=== PATIENT | female | born 1955 | race Caucasian/White ===

== ENCOUNTER 2023-05-20 18:23 | Observation (INO) | payer MEDICAID, SELFPAY ==
[2023-05-20 18:26] VITALS: BP 128/72; PULSE 62; RESP 20; TEMP 36.4; O2SAT 100; BMI 19.3
--- NOTE | 2023-05-20 18:39 | ED_ITS ---
HPI - Weakness General Chief complaint: Weakness Stated complaint: ABNORMAL LABS Time Seen by Provider: 05/20/23 18:27 Source: patient Mode of arrival: ambulance Limitations: no limitations History of Present Illness HPI Narrative: patient is a 67-year-old female who presents to the emergency department for the evaluation of low hemoglobin that was noted on outpatient labs from the [facility] where she is a resident. She states she has had ongoing issues with anemia, no one knows why. She states several months ago she had a in endoscopy and colonoscopy at [facility]. She states recently she has been receiving blood transfusions every two weeks. She was sent to this emergency department tonight because her facility is unable to set up a blood transfusion for at [place] 4[place]5 days and her hemoglobin was 6.5. Patient states she feels tired but has no other focal medical complaints, chest pain or shortness of breath. She is sitting comfortably with stable vital signs at time of evaluation. She has not noted any blood in her urine, stool. she does not take blood thinners. Related Data Home Medications Medication Instructions Recorded Confirmed acetaminophen 325 mg capsule 650 mg PO Q6H PRN fever or pain 05/20/23 05/20/23 albuterol sulfate 90 mcg/actuation 2 puff inhalation Q4H PRN 05/20/23 05/20/23 aerosol inhaler shortness of breath or wheezing cetylpyridinium chloride 1 hernan mucous membrane .Q6Hrs PRN 05/20/23 05/20/23 sore throat cholecalciferol (vitamin D3) 125 5,000 unit PO QWEEK 05/20/23 05/20/23 mcg (5,000 unit) capsule (D3-5000) docusate sodium 100 mg capsule 100 mg PO DAILY 05/20/23 05/20/23 fluticasone propionate 50 1 spray intranasal DAILY 05/20/23 05/20/23 mcg/actuation nasal spray,suspension lactulose 10 gram/15 mL oral 20 g PO BID 05/20/23 05/20/23 solution (Enulose) loratadine 10 mg chewable tablet 10 mg PO DAILY 05/20/23 05/20/23 magnesium 100 mg capsule 400 mg PO DAILY 05/20/23 05/20/23 midodrine 10 mg tablet 10 mg PO TID 05/20/23 05/20/23 omeprazole 40 mg capsule,delayed 40 mg PO DAILY 05/20/23 05/20/23 release polyethylene glycol 3350 17 17 g PO DAILY 05/20/23 05/20/23 gram/dose oral powder (ClearLax) polyvinyl alcohol 1.4 % eye drops 1 drp ophthalmic (eye) DAILY 05/20/23 05/20/23 (Artificial Tears (polyvinyl alcohol)) potassium chloride 10 mEq 20 meq PO DAILY 05/20/23 05/20/23 tablet,extended release (Klor-Con) rifaximin 550 mg tablet (Xifaxan) 550 mg PO BID 05/20/23 05/20/23 sertraline 25 mg tablet 12.5 mg PO Q24H 05/20/23 05/20/23 trazodone 150 mg tablet 50 mg PO DAILY 05/20/23 05/20/23 ursodiol 250 mg tablet 250 mg PO Q12H 05/20/23 05/20/23 Allergies Allergy/AdvReac Type Severity Reaction Status Date / Time No Known Drug Allergies Allergy Verified 05/20/23 18:30 Review of Systems ROS Constitutional Denies: fever or chills Ears, nose, mouth, and throat Denies: throat pain Cardiovascular Denies: chest pain Respiratory Denies: shortness of breath or cough Gastrointestinal Denies: abdominal pain, nausea or vomiting Integumentary/Breast Denies: rash Endocrine Denies: excessive urination PFSH PFSH Social History Smoking status: Former smoker Exam Narrative Exam Narrative: Gen.: Awake, alert, in no distress Head: Normocephalic, atraumatic ENT: Moist mucous membranes Respiratory: No respiratory distress, lungs clear bilaterally Cardio: Regular rate and rhythm Gastrointestinal: Abdomen is soft, nondistended and nontender to palpation Extremities: Moves extremities equally Psych: Normal mood and affect Neuro: No focal neuro deficit Skin: Warm, dry, intact Constitutional Vital Signs, click to edit/add: Last Vital Signs Temp 97.5 F L 05/20/23 18:26 Pulse 61 05/20/23 19:01 Resp 16 05/20/23 19:01 BP 128/72 05/20/23 18:26 Pulse Ox 99 05/20/23 19:01 O2 Del Method Room Air 05/20/23 19:02 Course Vital Signs Vital signs: Vital Signs Temperature 97.5 F L 05/20/23 18:26 Pulse Rate 62 05/20/23 18:26 Respiratory Rate 20 05/20/23 18:26 Blood Pressure 128/72 05/20/23 18:26 Pulse Oximetry 100 05/20/23 18:26 Oxygen Delivery Method Room Air 05/20/23 18:26 Temperature 97.5 F L 05/20/23 18:26 Pulse Rate 61 05/20/23 19:01 Respiratory Rate 16 05/20/23 19:01 Blood Pressure 128/72 05/20/23 18:26 Pulse Oximetry 99 05/20/23 19:01 Oxygen Delivery Method Room Air 05/20/23 19:02 MDM - Weakness MDM Narrative Medical decision making narrative: patient found to have a hemoglobin of 7.3 with a hematocrit of 23.9, critically low. Her vital signs are stable. I did discuss this with the hospitalist and we will admit the patient for observation to transfuse one unit. Unit of blood was ordered in the Emergency Room. Stable at time of admission for observation. Medical Records Attestation: I reviewed the patient's medical records. Lab Data Attestation: I reviewed the patient's lab results. Labs: Lab Results 05/20/23 Range/Units 18:45 WBC 1.5 L (4.0-11.0) 10^3/uL RBC 2.12 L (4.20-5.40) 10^6/uL Hgb 7.3 L (12.0-16.0) g/dL Hct 23.9 L* (36.0-48.0) % MCV 112.7 H (81.0-99.0) fL MCH 34.4 H (26.7-34.0) pg MCHC 30.5 (29.9-35.2) g/dL RDW 18.5 H (11.0-15.0) % Plt Count 57 L (150-450) 10^3/uL MPV 11.4 (9.5-13.5) fL Discharge Plan Discharge Chief Complaint: Weakness Patient Disposition: Admitted as Observation Time of Disposition Decision: 19:25 Prescriptions / Home Meds: No Action acetaminophen 325 mg capsule 650 mg PO Q6H PRN (Reason: fever or pain) albuterol sulfate 90 mcg/actuation HFA aerosol inhaler 2 puff INHALATION Q4H PRN (Reason: shortness of breath or wheezing) cetylpyridinium chloride Lozenge 1 hernan mucous membrane .Q6Hrs PRN (Reason: sore throat) cholecalciferol (vitamin D3) [D3-5000] 125 mcg (5,000 unit) capsule 5,000 unit PO QWEEK fluticasone propionate 50 mcg/actuation spray,suspension 1 spray INTRANASAL DAILY lactulose [Enulose] 10 gram/15 mL solution 20 g PO BID Rx Instructions: at HS and AM loratadine 10 mg tablet,chewable 10 mg PO DAILY magnesium 100 mg capsule 400 mg PO DAILY midodrine 10 mg tablet 10 mg PO TID Rx Instructions: at AM afternoon and HS polyethylene glycol 3350 [ClearLax] 17 gram/dose powder 17 g PO DAILY omeprazole 40 mg capsule,delayed release(DR/EC) 40 mg PO DAILY polyvinyl alcohol [Artificial Tears (polyvin alc)] 1.4 % drops 1 drp ophthalmic (eye) DAILY potassium chloride [Klor-Con 10] 10 mEq tablet extended release 20 meq PO DAILY Xifaxan 550 mg tablet 550 mg PO BID sertraline 25 mg tablet 12.5 mg PO Q24H Rx Instructions: at HS trazodone 150 mg tablet 50 mg PO DAILY Rx Instructions: at HS ursodiol 250 mg tablet 250 mg PO Q12H docusate sodium 100 mg capsule 100 mg PO DAILY Referrals: NAMAN CARBAJAL [Primary Care Provider] - 1 week
[2023-05-20 19:01] VITALS: PULSE 61; RESP 16; O2SAT 99
[2023-05-20 19:10] LABS: Hemoglobin 7.3 g/dL (12.0-16.0); Mean Corpuscular HGB Conc 30.5 g/dL (29.9-35.2); Mean Corpuscular Hemoglobin 34.4 pg (26.7-34.0); Mean Corpuscular Volume 112.7 fL (81.0-99.0); Mean Platelet Volume 11.4 fL (9.5-13.5); Platelet Count 57 10^3/uL (150-450); Red Blood Count 2.12 10^6/uL (4.20-5.40); Red Cell Distribution Width 18.5 % (11.0-15.0); White Blood Count 1.5 10^3/uL (4.0-11.0)
[2023-05-20 19:12] LABS: Hematocrit 23.9 % (36.0-48.0)
[2023-05-20 19:31] LABS: Eosinophils Absolute Manual 0.06 10^3/uL (0.00-0.70); Lymphocytes Absolute Manual 0.48 10^3/uL (1.20-3.80); Monocytes Absolute Manual 0.04 10^3/uL (0.30-0.80)
[2023-05-20 19:32] LABS: Alanine Aminotransferase 21 U/L (14-59); Albumin Globulin Ratio 0.6; Albumin Level 2.6 g/dL (3.4-5.0); Alkaline Phosphatase 108 U/L (46-116); Anion Gap 6.9; Anisocytosis 3+; Aspartate Amino Transferase 27 U/L (15-37); BUN Creatinine Ratio 25.5; Bilirubin Total 0.7 mg/dL (0.2-1.0); Calcium 8.5 mg/dL (8.5-10.1); Carbon Dioxide 26.6 mmol/L (21.0-32.0); Chloride 107 mmol/L (98-107); Estimated GFR (African America >60 (>=60); Estimated GFR (Non-African Ame 54 (>=60); Globulin 4.5 g/dL; Glucose 220 mg/dL (74-106); Hypochromasia 3+; Microcytosis 3+; Poikilocytosis 3+; Potassium 4.5 mmol/L (3.5-5.1); Sodium 136 mmol/L (136-145); Total Protein 7.1 g/dL (6.4-8.2)
[2023-05-20 20:32] VITALS: BP 116/66; PULSE 68; RESP 16; TEMP 36.7; O2SAT 94
[2023-05-20 20:33] VITALS: BMI 19.3
[2023-05-21] VITALS (17 sets, daily range): BP systolic 100–120; BP diastolic 58–70; PULSE 54–73; RESP 18; TEMP 36.7–36.9; O2SAT 95–98
--- NOTE | 2023-05-21 01:59 | W.PM.TELEPN ---
Progress Note: Subjective Subjective Interval history: PT is a 67F with PMH of Liver cirrhosis, Autoimmune hepatitis, former smoker who presented to the ED with complaint of low hemoglobin. She has been following as an outpatient from her SNF and has undergone EGD, COlonoscopy and no source of bleed has been yet identified, yet she continues to requires regular transfusions. Unfortunately, due to the holiday weekend her facility was unable to arrange trasnfusion when they noted her Hgb was low again today. In the ED, she was noted to have crinitally low hematocrit and borderline Hgb of 7.3 IM is consulted for observation status for transfusion support. At the time of my exam, pt offers no complaints. She denies dizziness, shortness of breath, chest pain. She denies any overt bleeding. The remainder of the review of systems is negative. Exam Narrative Exam Narrative: GEN: NAD, Pallor noted HEENT: No nasal discharge. NC/AT Neck: FROM Cards: RRR. No murmur Pulm: CTA B/L GI: Nontender Musculosik: [place] Neuro; AAOx2 Psych: Calm Constitutional Vital Signs, click to edit/add: Last Vital Signs Temp 98.1 F 05/20/23 20:32 Pulse 68 05/20/23 20:32 Resp 16 05/20/23 20:32 BP 116/66 05/20/23 20:32 Pulse Ox 94 L 05/20/23 20:32 O2 Del Method Room Air 05/20/23 20:43 Progress Note: Objective Labs Labs: Short CBC 05/20/23 Range/Units 18:45 WBC 1.5 L (4.0-11.0) 10^3/uL Hgb 7.3 L (12.0-16.0) g/dL Hct 23.9 L* (36.0-48.0) % Plt Count 57 L (150-450) 10^3/uL BMP 05/20/23 18:45 Sodium 136 Potassium 4.5 Chloride 107 Carbon Dioxide 26.6 BUN 26.0 H Creatinine 1.02 Glucose 220 H Calcium 8.5 Liver Function 05/20/23 Range/Units 18:45 Total Bilirubin 0.7 (0.2-1.0) mg/dL AST 27 (15-37) U/L ALT 21 (14-59) U/L Alkaline Phosphatase 108 (46-116) U/L Albumin 2.6 L (3.4-5.0) g/dL Progress Note: A&P Assessment and Plan (1) Anemia: Plan Chronic anemia requiring regular transfusion Pt follows with the [facility] where she is underoing an outpatient workup for same Unable to obtain transfusion at [facility] Place in observation Transfuse 1U pRBC Monitor response Continue to follow up as outpatient Telemedicine Attestation Telemedicine Attestation I conducted this encounter from [place][] via secure live, [id number] video conference with the patient, located at [facility] with [nurse]. Prior to the interview, the risks and benefits of telemedicine were discussed with the patient and verbal consent was obtained.
[2023-05-21 05:27] LABS: Glucose 101 mg/dL (74-106)
[2023-05-21 07:40] LABS: Glucometer 105 mg/dL (74-106)
[2023-05-21] MEDS: POTASSIUM CHLORIDE 10 MEQ ER TABLET 20 MEQ PO (09:20)
[2023-05-21] MEDS: MAGNESIUM OXIDE 400 MG TABLET PO (09:20)
[2023-05-21] MEDS: SERTRALINE HCL 50 MG TABLET 12.5 MG PO (09:20)
[2023-05-21] MEDS: CETIRIZINE HCL 10 MG TABLET PO (09:20)
[2023-05-21] MEDS: OMEPRAZOLE 40 MG CAPSULE.DR PO (09:20)
[2023-05-21] MEDS: RIFAXIMIN 550 MG TABLET PO ×2 (09:21→21:26)
[2023-05-21] MEDS: DOCUSATE SODIUM 100 MG CAPSULE PO (09:21)
--- NOTE | 2023-05-21 09:24 | CM.NOTE ---
Reached out to [facility] regarding pt and status at [facility], awaiting call back.
[2023-05-21 09:57] LABS: Red Blood Count 1.88 10^6/uL (4.20-5.40); White Blood Count 1.3 10^3/uL (4.0-11.0)
[2023-05-21 09:58] LABS: Hemoglobin 6.5 g/dL (12.0-16.0); Mean Corpuscular Volume 111.7 fL (81.0-99.0)
[2023-05-21 09:59] LABS: Mean Corpuscular Hemoglobin 34.6 pg (26.7-34.0); Platelet Count 45 10^3/uL (150-450); Red Cell Distribution Width 18.1 % (11.0-15.0)
[2023-05-21 11:04] LABS: Glucometer 145 mg/dL (74-106)
--- NOTE | 2023-05-21 11:58 | CM.NOTE ---
Rounds made with Dr. Reyes. Awaiting PRBCs for transfusion. May be discharged when PRBCs received.
--- NOTE | 2023-05-21 12:18 | CM.NOTE ---
Updates sent to [place].
[2023-05-21 12:22] LABS: Segmented Neut Absolute Manual 0.57 10^3/uL (1.4-6.5)
[2023-05-21 12:23] LABS: Eosinophils Absolute Manual 0.07 10^3/uL (0.00-0.70); Lymphocytes Absolute Manual 0.54 10^3/uL (1.20-3.80)
[2023-05-21 12:24] LABS: Acanthocytes 1+; Anisocytosis 1+; Poikilocytosis 1+
[2023-05-21 12:25] LABS: Tear Drop Cells 1+
--- NOTE | 2023-05-21 13:30 | P.HP_ITS ---
Seen and examined. Chart reviewed. Case d/w HILLARY Stewart. Agree with her finding, treatment plan Reports feeling tired. Other than that, no active complaints. Exam: Frail, laying recliner, NAD CTA b/l , normal RR Normal HR, no murmur Assessment and Plan Symptomatic anemia Pancytopenia COPD Liver cirrhosis Tx once PRBC available. Monitor HEMOGLOBIN. D/c after transfusion H&P: HPI History of Present Illness Chief complaint: ABNORMAL LABS, Anemia Requiring Transfusion Narrative: Date/time of exam: 05/21/23 1000 This is a 67-year-old female patient with a past medical history as outlined below including autoimmune hepatitis, cirrhosis, and known pancytopenia of unclear etiology; who presented to the ED last night from a local SNF facility with a low outpatient hemoglobin requiring PRBC transfusion. The patient has been receiving transfusions at her SNF every couple of weeks, but due to the holiday today the SNF facility was unable to obtain PRBCs and transferred her to the hospital for further evaluation and transfusion. Work-up in the ED confirmed significant anemia with a hemoglobin of 7.3 (reportedly 6.5 on outpatient labs). Further blood dyscrasias include leukocytopenia (1.5), and neutropenia (57). The patient reportedly has had a thorough outpatient work-up including recent colonoscopy and endoscopy without significant finding. No known evidence of hematuria, melena or hematochezia. No anticoagulation therapy. The patient was admitted to the hospitalist service in observation for a PRBC transfusion. At the time of my exam this morning we are still awaiting PRBCs from the blood bank. The patient has antibodies in her blood requiring specific blood units to be transfused which we have not been able to obtain this so far. As this is a holiday it is possible that we may have difficulty obtaining this blood today. We will transfuse as soon as units are available. The patient confirms that she has been following with a chief knowledge officer as an outpatient, Dr. Julee Ray out of [place]. Patient reports that she has not had any bone marrow biopsies to [facility]. She confirms the absence of hematuria, melena, or hematochezia, or any other active bleeding. She reports increased fatigue over the last 24 hrs and is pale on exam. If we are able to obtain PRBCs today and repeat labs are stable, the pt may be discharged back to her home SNF later today. Review of Systems ROS Status of ROS 10 or more systems reviewed and unremarkable except as noted in history and below [facility] Medical History (Updated 05/21/23 @ 13:54 by Pat Redding NP) Autoimmune hepatitis ?K75.4 - Autoimmune hepatitis (ICD-10) Cirrhosis of liver ?K74.60 - Unspecified cirrhosis of liver (ICD-10) COPD (chronic obstructive pulmonary disease) ?J44.9 - Chronic obstructive pulmonary disease, unspecified (ICD-10) Depression ?F32.A - Depression, unspecified (ICD-10) Dry eye syndrome ?H04.129 - Dry eye syndrome of unspecified lacrimal gland (ICD-10) Dysthymic disorder ?F34.1 - Dysthymic disorder (ICD-10) GERD (gastroesophageal reflux disease) ?K21.9 - Gastro-esophageal reflux disease without esophagitis (ICD-10) Hepatic failure ?K72.90 - Hepatic failure, unspecified without coma (ICD-10) Hernia ?K46.9 - Unspecified abdominal hernia without obstruction or gangrene (ICD- 10) Hyperglycemia ?R73.9 - Hyperglycemia, unspecified (ICD-10) Hyperlipemia ?E78.5 - Hyperlipidemia, unspecified (ICD-10) Hypotension ?I95.9 - Hypotension, unspecified (ICD-10) Protein calorie malnutrition ?E46 - Unspecified protein-calorie malnutrition (ICD-10) Vitamin D deficiency ?E55.9 - Vitamin D deficiency, unspecified (ICD-10) Social History (Updated 05/20/23 @ 20:55 by Lara Hubbard RN) Within the past year, how often did you have a drink containing alcohol: never Within the past year, how often did you have six or more drinks on one occasion: never Score interpretation: A score less than 3 is consistent with normal alcohol consumption. Smoking status: Former smoker Non-prescribed substance use: denies use Previous occupational history: retired Known occupational exposures/hazards: No Highest level of school completed/degree received: high school graduate Do you want help with school or training: No Are you now , , , , never or living with a partner: never Little interest or pleasure in doing things: not at all Feeling down, depressed, or hopeless: not at all Feel stressed/tense/nervous/anxious/difficulty sleeping: not at all Do you think of yourself as: straight/heterosexual Gender Identity: female Meds Home Medications and Allergies Home Medications Medication Instructions Recorded Confirmed Type acetaminophen 325 mg capsule 650 mg PO Q6H PRN fever or pain 05/20/23 05/20/23 History albuterol sulfate 90 mcg/actuation 2 puff inhalation Q4H PRN 05/20/23 05/20/23 History aerosol inhaler shortness of breath or wheezing cetylpyridinium chloride 1 hernan mucous membrane .Q6Hrs PRN 05/20/23 05/20/23 History sore throat cholecalciferol (vitamin D3) 125 5,000 unit PO QWEEK 05/20/23 05/20/23 History mcg (5,000 unit) capsule (D3-5000) docusate sodium 100 mg capsule 100 mg PO DAILY 05/20/23 05/20/23 History fluticasone propionate 50 1 spray intranasal DAILY 05/20/23 05/20/23 History mcg/actuation nasal spray,suspension lactulose 10 gram/15 mL oral 20 g PO BID 05/20/23 05/20/23 History solution (Enulose) loratadine 10 mg chewable tablet 10 mg PO DAILY 05/20/23 05/20/23 History magnesium 100 mg capsule 400 mg PO DAILY 05/20/23 05/20/23 History midodrine 10 mg tablet 10 mg PO TID 05/20/23 05/20/23 History omeprazole 40 mg capsule,delayed 40 mg PO DAILY 05/20/23 05/20/23 History release polyethylene glycol 3350 17 17 g PO DAILY 05/20/23 05/20/23 History gram/dose oral powder (ClearLax) polyvinyl alcohol 1.4 % eye drops 1 drp ophthalmic (eye) DAILY 05/20/23 05/20/23 History (Artificial Tears (polyvinyl alcohol)) potassium chloride 10 mEq 20 meq PO DAILY 05/20/23 05/20/23 History tablet,extended release (Klor-Con) rifaximin 550 mg tablet (Xifaxan) 550 mg PO BID 05/20/23 05/20/23 History sertraline 25 mg tablet 12.5 mg PO Q24H 05/20/23 05/20/23 History trazodone 150 mg tablet 50 mg PO DAILY 05/20/23 05/20/23 History ursodiol 250 mg tablet 250 mg PO Q12H 05/20/23 05/20/23 History Allergies Allergy/AdvReac Type Severity Reaction Status Date / Time No Known Drug Allergies Allergy Verified 05/20/23 18:30 Exam Constitutional Vital Signs, click to edit/add: Last Vital Signs Temp 98.1 F 05/20/23 20:32 Pulse 66 05/21/23 12:23 Resp 16 05/20/23 20:32 BP 100/70 05/21/23 04:36 Pulse Ox 97 05/21/23 12:01 O2 Del Method Room Air 05/21/23 12:01 Common normals: no apparent distress, oriented x3, alert and well nourished General appearance: cooperative Orientation/consciousness: Yes awake Other: Pale HENMT Common normals: normocephalic, head/scalp atraumatic, hearing grossly normal bilaterally, external nose normal and moist oral mucous membranes Face and sinus: normal facial exam Nose: external nose normal Eye Common normals: PERRL, EOMs intact bilaterally, conjunctivae normal and no scler al icterus Alignment: alignment normal Eyelid: eyelids normal Neck & C-Spine Common normals: full ROM, supple and no JVD Chest Common normals: inspection of chest normal Chest: symmetrical chest wall rise Respiratory Common normals: normal respiratory effort, no retractions and no use of accessory muscles Effort & inspection: able to speak in complete sentences Auscultation: rales (Faint LLL) Cardio Common normals: no JVD, regular rate, regular rhythm, S1 normal heart sound, S2 normal heart sound, no gallops, no clicks, no murmurs, no rub and peripheral pulses 2+ throughout GI Common normals: Normal to inspection, nondistended, normoactive bowel sounds present, soft to palpation, non-tender, no hepatosplenomegaly, no masses and no bruits Bladder/kidney exam: bladder normal to palpation Back & Pelvis Common normals: thoracic and lumbar spine normal to inspection Extremity Common normals: normal capillary refill and no pedal edema General: normal exam except as noted; no clubbing and no cyanosis Neuro [place] Coma Scale: GCS not evaluated Common normals: oriented x3, CN's II-XII intact bilaterally, moves all extremities, no focal motor deficits and no sensory deficits noted Sensorium/orientation: awake and alert Speech: speech normal Motor exam: strength 5/5 throughout Psych Common normals: mental status grossly normal, thought process normal, affect normal and activity/motor behavior normal Results Labs Labs: Short CBC 05/20/23 05/21/23 Range/Units 18:45 04:21 WBC 1.5 L 1.3 L* (4.0-11.0) 10^3/uL Hgb 7.3 L 6.5 L* (12.0-16.0) g/dL Hct 23.9 L* 21.0 L* (36.0-48.0) % Plt Count 57 L 45 L (150-450) 10^3/uL BMP 05/20/23 05/21/23 18:45 05:04 Sodium 136 Potassium 4.5 Chloride 107 Carbon Dioxide 26.6 BUN 26.0 H Creatinine 1.02 Glucose 220 H 101 Calcium 8.5 Liver Function 05/20/23 Range/Units 18:45 Total Bilirubin 0.7 (0.2-1.0) mg/dL AST 27 (15-37) U/L ALT 21 (14-59) U/L Alkaline Phosphatase 108 (46-116) U/L Albumin 2.6 L (3.4-5.0) g/dL Pulse Oximetry Attestation: I have reviewed the pertinent pulse oximetry results. Assessment and Plan Assessment and Plan (1) Symptomatic anemia: Assessment and Plan: ACUTE ON CHRONIC * Adm observation * 1 un PRBC now * Repeat CBC 1 hr post transfusion and consider further PRBCs for hgb < 7 or severely symptomatic * No evidence of active bleeding. * Not on anticoagulant. * Recent colonoscopy/endoscopy negative for acute disease * Defer further management to outpatient hematology (2) Pancytopenia: Assessment and Plan: ACUTE ON CHRONIC * Unclear etiology * Defer further management to outpatient hematology (3) COPD (chronic obstructive pulmonary disease): Assessment and Plan: CHRONIC * Continue home PRN albuterol HFA (4) Depression: Assessment and Plan: CHRONIC * Continue home Sertraline, Trazodone (5) Hepatic failure: Assessment and Plan: CHRONIC * 2/2 autoimmune hepatitis and cirrhosis * Continue home Rifaxamin, Ursodiol, Lactulose (6) Hypotension: Assessment and Plan: CHRONIC * Continue home midodrine (7) GERD (gastroesophageal reflux disease): Assessment and Plan: CHRONIC * Continue home PPI
[2023-05-21] MEDS: MIDODRINE HCL 5 MG TABLET 10 MG PO ×2 (14:08→21:26)
[2023-05-21 19:01] LABS: Basophils Percent Auto 0.6 % (0.2-2.0); Eosinophils Absolute Auto 0.1 10^3/uL (0.0-0.7); Eosinophils Percent Auto 3.4 % (0.9-7.0); Hematocrit 25.5 % (36.0-48.0); Hemoglobin 8.3 g/dL (12.0-16.0); Immature Granulocytes Abs Auto 0.01 10^3/uL (0.00-0.03); Immature Granulocytes Pct Auto 0.6 % (0.0-0.5); Lymphocytes Absolute Auto 0.6 10^3/uL (1.2-3.8); Lymphocytes Percent Auto 31.5 % (20.5-60.0); Mean Corpuscular HGB Conc 32.5 g/dL (29.9-35.2); Mean Corpuscular Hemoglobin 34.2 pg (26.7-34.0); Mean Corpuscular Volume 104.9 fL (81.0-99.0); Mean Platelet Volume 10.6 fL (9.5-13.5); Monocytes Absolute Auto 0.2 10^3/uL (0.3-0.8); Monocytes Percent Auto 8.4 % (1.7-12.0); Neutrophils Percent Auto 55.5 % (43.0-75.0); Platelet Count 55 10^3/uL (150-450); Red Blood Count 2.43 10^6/uL (4.20-5.40); Red Cell Distribution Width 21.6 % (11.0-15.0); White Blood Count 1.8 10^3/uL (4.0-11.0)
[2023-05-21 20:05] LABS: Glucometer 226 mg/dL (74-106)
[2023-05-21] MEDS: TRAZODONE HCL 50 MG TABLET PO (21:26)
[2023-05-22] VITALS (10 sets, daily range): BP systolic 82–91; BP diastolic 46–66; PULSE 48–60; RESP 18–20; TEMP 36.2–36.6; O2SAT 94–97
[2023-05-22 05:25] LABS: Basophils Percent Auto 0.6 % (0.2-2.0); Eosinophils Absolute Auto 0.1 10^3/uL (0.0-0.7); Eosinophils Percent Auto 4.7 % (0.9-7.0); Hematocrit 24.5 % (36.0-48.0); Hemoglobin 7.8 g/dL (12.0-16.0); Lymphocytes Absolute Auto 0.6 10^3/uL (1.2-3.8); Lymphocytes Percent Auto 34.3 % (20.5-60.0); Mean Corpuscular HGB Conc 31.8 g/dL (29.9-35.2); Mean Corpuscular Hemoglobin 33.9 pg (26.7-34.0); Mean Corpuscular Volume 106.5 fL (81.0-99.0); Mean Platelet Volume 10.6 fL (9.5-13.5); Monocytes Absolute Auto 0.2 10^3/uL (0.3-0.8); Monocytes Percent Auto 11.2 % (1.7-12.0); Neutrophils Absolute Auto 0.8 10^3/uL (1.4-6.5); Neutrophils Percent Auto 49.2 % (43.0-75.0); Platelet Count 55 10^3/uL (150-450); Red Cell Distribution Width 22.5 % (11.0-15.0); White Blood Count 1.7 10^3/uL (4.0-11.0)
[2023-05-22 05:32] LABS: Alanine Aminotransferase 20 U/L (14-59); Albumin Globulin Ratio 0.6; Albumin Level 2.4 g/dL (3.4-5.0); Alkaline Phosphatase 90 U/L (46-116); Anion Gap 10.8; Aspartate Amino Transferase 25 U/L (15-37); BUN Creatinine Ratio 34.1; Bilirubin Total 2.2 mg/dL (0.2-1.0); Calcium 8.2 mg/dL (8.5-10.1); Carbon Dioxide 25.4 mmol/L (21.0-32.0); Chloride 112 mmol/L (98-107); Estimated GFR (African America >60 (>=60); Estimated GFR (Non-African Ame >60 (>=60); Glucose 86 mg/dL (74-106); Potassium 4.2 mmol/L (3.5-5.1); Sodium 144 mmol/L (136-145); Total Protein 6.4 g/dL (6.4-8.2)
[2023-05-22] MEDS: OMEPRAZOLE 40 MG CAPSULE.DR PO (05:32)
[2023-05-22] MEDS: MIDODRINE HCL 5 MG TABLET 10 MG PO ×2 (05:32→14:25)
[2023-05-22] MEDS: CETIRIZINE HCL 10 MG TABLET PO (08:43)
[2023-05-22] MEDS: RIFAXIMIN 550 MG TABLET PO (08:44)
[2023-05-22] MEDS: DOCUSATE SODIUM 100 MG CAPSULE PO (08:44)
[2023-05-22] MEDS: POTASSIUM CHLORIDE 10 MEQ ER TABLET 20 MEQ PO (08:44)
[2023-05-22] MEDS: MAGNESIUM OXIDE 400 MG TABLET PO (08:44)
[2023-05-22] MEDS: SERTRALINE HCL 50 MG TABLET 12.5 MG PO (08:46)
--- NOTE | 2023-05-22 08:54 | PM.DS1 ---
DS: Providers Provider Date of admission: 05/20/23 20:08 Primary care physician: NAMAN CARBAJAL Admitting clinician: Shaikh Amy Discharging clinician: Cindy Gill DS: Diagnosis Discharge Diagnosis (1) Symptomatic anemia: (2) Pancytopenia: (3) COPD (chronic obstructive pulmonary disease): (4) Depression: (5) Hepatic failure: (6) Hypotension: (7) GERD (gastroesophageal reflux disease): DS: Summary Hospital Course Hospital Course: PT is a 67F with PMH of Liver cirrhosis, Autoimmune hepatitis, former smoker who is currently in a LTCF who requires frequent blood transfusions for symptomatic anemia. She has been following as an outpatient from her SNF and has undergone EGD, Colonoscopy and no source of bleed has been yet identified, yet she continues to requires regular transfusions. she was admitted to [facility] and given one unit of packed red blood cells. At the time of discharge her hemoglobin improved from 6.5-7.8. Patient denies any chest pain shortness of breath or dizziness, and she wishes to return to her long-term care facility today. Patient is to continue outpatient workup, and she denies any acute episodes of bleeding. Status at Discharge Overall status at discharge: patient is back to baseline Time Spent with Patient Time attestation: Total time spent providing and/or coordinating discharge services: Time spent: greater than 30 minutes Exam Narrative Exam Narrative: General: Patient is alert, and oriented to person, place and time with normal affect, cachexia Skin: no visible rashes, or ulcers Head: atraumatic, acephalic Eyes: PERRLA, no nystagmus present, conjunctiva clear, no scleral icterus Heart: Normal rate and rhythm, no murmurs/rubs/gallops Lungs: no audible wheezes, crackles and normal breath sounds all lung [place] Abdomen: Normal audible bowel sounds, no distension, No palpable masses, no organomegaly, no rebound/guarding/ or rigidity Musculoskeletal: muscle atrophy noted, ROM is limited due to being in hospital bed, no swelling bilateral lower extremities Neuro: CN II-X grossly intact, normal sensation upper and lower extremities Constitutional Vital Signs, click to edit/add: Last Vital Signs Temp 98 F 05/22/23 05:17 Pulse 48 L 05/22/23 07:58 Resp 18 05/22/23 05:17 BP 90/48 L 05/22/23 05:32 Pulse Ox 94 L 05/22/23 05:17 O2 Del Method Room Air 05/22/23 05:17 DS: Data Data Completed and Pending Labs on day of discharge: Labs from last 24 hours 05/22/23 05/21/23 05/21/23 03:59 20:02 18:44 WBC 1.7 L 1.8 L RBC 2.30 L 2.43 L Hgb 7.8 L 8.3 L Hct 24.5 L 25.5 L MCV 106.5 H 104.9 H MCH 33.9 34.2 H MCHC 31.8 32.5 RDW 22.5 H 21.6 H Plt Count 55 L 55 L MPV 10.6 10.6 Neut % (Auto) 49.2 55.5 Lymph % (Auto) 34.3 31.5 [place] % (Auto) 11.2 8.4 Eos % (Auto) 4.7 3.4 Baso % (Auto) 0.6 0.6 Neut # (Auto) 0.8 L 1.0 L Lymph # (Auto) 0.6 L 0.6 L [place] # (Auto) 0.2 L 0.2 L Eos # (Auto) 0.1 0.1 Baso # (Auto) 0.0 0.0 Abs Immat Gran (auto) 0.00 0.01 Seg Neuts % (Manual) Lymphocytes % (Manual) Monocytes % (Manual) Eosinophils % (Manual) Basophils % (Manual) Imm/Tot Granulo (auto) 0.0 0.6 H Neutrophils # (Manual) Lymphocytes # (Manual) Monocytes # (Manual) Eosinophils # (Manual) Basophils # (Manual) Poikilocytosis Anisocytosis Tear Drop Cells Acanthocytes (Spur) Sodium 144 Potassium 4.2 Chloride 112 H Carbon Dioxide 25.4 Anion Gap 10.8 BUN 30.0 H Creatinine 0.88 Est GFR ( Amer) >60 Est GFR (Non-Af Amer) >60 BUN/Creatinine Ratio 34.1 Glucose 86 Calcium 8.2 L Total Bilirubin 2.2 H AST 25 ALT 20 Alkaline Phosphatase 90 Total Protein 6.4 Albumin 2.4 L Globulin 4.0 Albumin/Globulin Ratio 0.6 POC Glucose 226 H Blood Type Antibody Screen Antibody Identification Crossmatch 05/21/23 05/21/23 05/20/23 11:03 04:21 18:45 WBC 1.3 L* RBC 1.88 L Hgb 6.5 L* Hct 21.0 L* MCV 111.7 H MCH 34.6 H MCHC 31.0 RDW 18.1 H Plt Count 45 L MPV 11.0 Neut % (Auto) Lymph % (Auto) [place] % (Auto) Eos % (Auto) Baso % (Auto) Neut # (Auto) Lymph # (Auto) [place] # (Auto) Eos # (Auto) Baso # (Auto) Abs Immat Gran (auto) Seg Neuts % (Manual) 44.0 Lymphocytes % (Manual) 42.0 Monocytes % (Manual) 8.0 Eosinophils % (Manual) 6.0 Basophils % (Manual) 0.0 L Imm/Tot Granulo (auto) Neutrophils # (Manual) 0.57 L Lymphocytes # (Manual) 0.54 L Monocytes # (Manual) 0.10 L Eosinophils # (Manual) 0.07 Basophils # (Manual) 0.00 Poikilocytosis 1+ Anisocytosis 1+ Tear Drop Cells 1+ Acanthocytes (Spur) 1+ Sodium Potassium Chloride Carbon Dioxide Anion Gap BUN Creatinine Est GFR ( Amer) Est GFR (Non-Af Amer) BUN/Creatinine Ratio Glucose Calcium Total Bilirubin AST ALT Alkaline Phosphatase Total Protein Albumin Globulin Albumin/Globulin Ratio POC Glucose 145 H Blood Type A Positive Antibody Screen Negative Antibody Identification Cancelled Crossmatch See Detail Discharge Plan Discharge Disposition: Xfer LTC Condition: Good Discharge Medications: Continued acetaminophen 325 mg capsule 650 mg PO Q6H PRN (Reason: fever or pain) albuterol sulfate 90 mcg/actuation HFA aerosol inhaler 2 puff INHALATION Q4H PRN (Reason: shortness of breath or wheezing) cetylpyridinium chloride Lozenge 1 hernan mucous membrane .Q6Hrs PRN (Reason: sore throat) cholecalciferol (vitamin D3) [D3-5000] 125 mcg (5,000 unit) capsule 5,000 unit PO QWEEK fluticasone propionate 50 mcg/actuation spray,suspension 1 spray INTRANASAL DAILY lactulose [Enulose] 10 gram/15 mL solution 20 g PO BID Rx Instructions: at HS and AM loratadine 10 mg tablet,chewable 10 mg PO DAILY magnesium 100 mg capsule 400 mg PO DAILY midodrine 10 mg tablet 10 mg PO TID Rx Instructions: at AM afternoon and HS polyethylene glycol 3350 [ClearLax] 17 gram/dose powder 17 g PO DAILY omeprazole 40 mg capsule,delayed release(DR/EC) 40 mg PO DAILY polyvinyl alcohol [Artificial Tears (polyvin alc)] 1.4 % drops 1 drp ophthalmic (eye) DAILY potassium chloride [Klor-Con 10] 10 mEq tablet extended release 20 meq PO DAILY Xifaxan 550 mg tablet 550 mg PO BID sertraline 25 mg tablet 12.5 mg PO Q24H Rx Instructions: at HS trazodone 150 mg tablet 50 mg PO DAILY Rx Instructions: at HS ursodiol 250 mg tablet 250 mg PO Q12H docusate sodium 100 mg capsule 100 mg PO DAILY Patient Instructions: Anemia (DC) Forms: Portal Instructions Follow Up Appointments: Follow up with staff doctor next week, will need recheck CBC 5-7 days
--- NOTE | 2023-05-22 14:52 | PC.NURSE ---
Report called to Kayla Stewart at this time
--- NOTE | 2023-05-24 12:31 | CM.DCFOLLOWU ---
Pt is longterm care at [place]. No follow up made.
== END 2023-05-22 16:14 ==
LOC: ER 19:35 → MS 20:12
PROVIDERS: Internal Medicine; Nurse Practitioner; Physician Assistant; Admitting Provider Internal Medicine; Emergency Provider Emergency Medicine; PCP Internal Medicine; Visit Provider Family Medicine
DX: D64.9 Anemia, unspecified (principal); D61.818 Other pancytopenia; J44.9 Chronic obstructive pulmonary disease, unspecified; F32.A Depression, unspecified; K72.10 Chronic hepatic failure without coma; K74.60 Unspecified cirrhosis of liver; K75.4 Autoimmune hepatitis; I95.9 Hypotension, unspecified; K21.9 Gastro-esophageal reflux disease without esophagitis; Z79.899 Other long term (current) drug therapy; Z87.891 Personal history of nicotine dependence; F34.1 Dysthymic disorder; E78.5 Hyperlipidemia, unspecified; E55.9 Vitamin D deficiency, unspecified
CPT/HCPCS: 36415; 36430; 80053; 82947; 82948; 85025; 85027; 86850; 86900; 86901; 94761; 99285; G0378; P9016

== ENCOUNTER 2023-08-04 08:55 | Observation (INO) | payer MEDICAID, SELFPAY ==
[2023-08-04] VITALS (30 sets, daily range): BP systolic 90–134; BP diastolic 55–74; PULSE 62–72; RESP 14–188; TEMP 36.3–36.9; O2SAT 90–99; BMI 17.3; BMI 42.1
--- NOTE | 2023-08-04 09:10 | ECG_ITS ---
[facility] Test Date: 2023-08-04 Pat Name: LANEY LARIOS Department: Room: - Gender: Female [employer]er: : [id number] Requested By: NAMAN CARBAJAL Order Number: [id number] Reading MD: SELMA GONZALEZ Measurements Intervals [place] Rate: 66 P: -[id number] SD: 116 QRS: -22 QRSD: 86 T: 90 QT: 388 QTc: 402 Interpretive Statements Sinus rhythm 4068 Nonspecific [place] abnormality 7202 Moderate left axis deviation 8102 Low QRS voltage in chest leads 9140 abnormal rhythm ECG Electronically Signed On 08-05-2023 7:03:44 EST by SELMA GONZALEZ
--- OUTSIDE RECORDS SUMMARY | 2023-08-04 09:22 | XMS_ITS | CCD ---
Author Name Unknown Address [address] [place] [address] Organization [facility] Care Team Providers Care Inspector Aligning Name Role Phone KEKE, MICHAEL BRYAN Unavailable Unavailable PEÑA, YOUNG [place] Unavailable Unavailable KEKE, MICHAEL BRYAN Unavailable Unavailable PEÑA, YOUNG [place] Unavailable Unavailable FANNING, CAESAR E Unavailable Unavailable FANNING, CAESAR E Unavailable Unavailable Peña, Young Mi Unavailable PEÑA, YOUNG [place] Unavailable Unavailable NO, PHYSICIAN Unavailable Unavailable PEÑA, YOUNG [place] Unavailable Unavailable NO, PHYSICIAN Unavailable Unavailable PEÑA, YOUNG [place] Unavailable Unavailable PEÑA, YOUNG [place] Unavailable Unavailable PEÑA, YOUNG [place] Unavailable Unavailable PEÑA, YOUNG [place] Unavailable Unavailable PEÑA, YOUNG [place] Unavailable Unavailable NYROMEL, YOANA BOBBY Unavailable Unavailable PEÑA, [place]NG [place] Unavailable Unavailable KEKE, MICHAEL BRYAN Unavailable Unavailable KEKE, MICHAEL BRYAN Unavailable Unavailable PEÑA, [place]NG [place] Unavailable Unavailable KEKE, MICHAEL BRYAN Unavailable Unavailable KEKE, MICHAEL BRYAN Unavailable Unavailable PEÑA, YOUNG [place] Unavailable Unavailable KKEE, MICHAEL BRYAN Unavailable Unavailable REYOANA MOSCOSO P Unavailable Unavailable KEKE, MICHAEL BRYAN Unavailable Unavailable PEÑA, YOUNG [place] Unavailable Unavailable PEÑA, YOUNG [place] Unavailable Unavailable DEL CHRISTIANSON Unavailable Unavailable Peña, Young Mi Primary Care Provider [phone] SHAIKH SAAB Admitting Unavailable DR JAE VERA Consulting Unavailable SHAIKH SAAB Attending Unavailable DR RAMONA PANDEY Consulting Unavailable RUKHSANA ANDRADE Consulting Unavailable SPENCER CATES Consulting Unavailable SHAIKH SAAB Consulting Unavailable Tyler Solis Consulting Unavailable SELF, REFERRED Referring Unavailable SELF, REFERRED Primary Care Unavailable JULIANO LUCAS Attending Unavailable JULIANO LUCAS Admitting Unavailable SELF, REFERRED Referring Unavailable SELF, REFERRED Primary Care Unavailable [place] Procedure Practitioner Unavailab le JULIANO LUCAS C Surgeon Unavailable JULIANO LUCAS Attending Unavailable JULIANO LUCAS Admitting Unavailable ANGELO LR Attending Unavailable ADE TAN Referring Unavailable WAYLON CAVAZOS Attending Unavailable ADE TAN Referring Unavailable ADE TAN Attending Unavailable PAUL, SHO Referring Unavailable TAN, ADE Admitting Unavailable KAMILAH, ADE Admitting Unavailable KAMILAH, ADE Attending Unavailable ANGELO LR Referring Unavailable SHO MILLER Attending Unavailable PAUL, SHO Attending Unavailable PAUL, SHO Attending Unavailable SELMA KIMBLE Referring Unavailable PAUL, SHO Attending Unavailable PAUL, SHO Attending Unavailable Medications Current Medications Medication Drug Class(es) Dates Sig (Normalized) Sig (Original) aspirin 81 mg delayed release oral tablet (2 sources) Nonsteroidal Anti-inflammatory Drug aspirin 81 MG EC tablet Take 81 mg by mouth. 0 Active cholecalciferol 2000 unt oral capsule (2 sources) Vitamin D Start: 07-27-2017 VITAMIN D3 2,000 unit cap traZODone hydrochloride 50 mg oral tablet (2 sources) Serotonin Reuptake Inhibitor traZODone (DESYREL) 50 MG tablet Take by mouth nightly as needed for sleep. 0 Active vitamin b 12 1 mg oral tablet (2 sources) Vitamin B12 cyanocobalamin (B-12) 1000 MCG tablet Take 1,000 mcg by mouth. 0 Active Completed/Discontinued Medications Medication Drug Class(es) Dates Sig (Normalized) Sig (Original) cefTRIAXone (ROCEPHIN) 1000 mg in sodium chloride (NS) 0.9% 50 mL MBP (1 source) Start: 01-07-2018 End: 01-08-2018 cefTRIAXone (ROCEPHIN) 1000 mg in sodium chloride (NS) 0.9% 50 mL MBP 200 ml ciprofloxacin 2 mg/ml injection (1 source) Quinolone Antimicrobial Start: 01-08-2018 End: 01-08-2018 ciprofloxacin (CIPRO) IVPB 400 mg (premix) iopamidol (1 source) Radiographic Contrast Agent Start: 01-08-2018 End: 01-08-2018 iopamidol (ISOVUE-370) 76 % injection 75 mL 100 ML metroNIDAZOLE 5 MG/ML Injection (1 source) Nitroimidazole Antimicrobial Start: 01-08-2018 End: 01-08-2018 metroNIDAZOLE (FLAGYL) IVPB 500 mg 2 ml ondansetron 2 mg/ml injection (1 source) Serotonin-3 Receptor Antagonist Start: 01-08-2018 End: 01-08-2018 ondansetron (ZOFRAN) injection 4 mg Potassium Chloride 20 Meq/100ml In Sterile Water Intravenous Piggyback (3 sources) Start: 01-08-2018 End: 01-08-2018 take 20 mEq intravenous route every two hours potassium chloride 20 mEq in 100 mL IVPB Start: 08-02-2017 take 1 tablet by jac th once daily, then take 1 tablet by mouth potassium chloride (K-DUR) 10 MEQ CR tablet Take 10 mEq by mouth daily. 0 08/02/2017 Active 1000 ml sodium chloride 9 mg /ml injection (3 sources) Start: 01-07-2018 End: 01-08-2018 sodium chloride 0.9% (NS) Problems Active Problems Problem Classification Problem Date Documented Da te Episodic/Chronic Abdominal pain (2 sources) Generalized abdominal pain; Translations: [Generalized abdominal pain] Onset: 03-26-2023 Episodic Anxiety disorders (2 sources) Generalized anxiety disorder; Translations: [Generalized anxiety disorder] Onset: 06-24-2017 Chronic Chronic obstructive pulmonary disease and bronchiectasis (1 source) Chronic obstructive pulmonary disease, unspecified; Translations: [COPD UNSPECIFIED] Onset: 09-08-2021 Chronic Deficiency and other anemia (1 source) Other pancytopenia; Translations: [OTHER PANCYTOPENIA] Onset: 09-08-2021 Chronic Esophageal disorders (6 sources) Gastro-esophageal reflux disease without esophagitis; Translations: [Esophageal varices without bleeding] Onset: 08-25-2022 Chronic Essential hypertension (1 source) Essential (primary) hypertension; Translations: [ESSENTIAL PRIMARY HYPERTENSION] Onset: 09-08-2021 Chronic External Injury - Fall (2 sources) Unspecified fall, initial encounter; Translations: [Unspecified fall, initial encounter] Onset: 08-03-2017 Hepatitis (3 sources) Autoimmune hepatitis; Translations: [AUTOIMMUNE HEPATITIS] Onset: 09-08-2021 Chronic Mood disorders (3 sources) Major depressive disorder, recurrent severe without psychotic features; Translations: [Major depressive disorder, single episode, unspecified] Onset: 06-24-2017 Chronic Other aftercare (1 source) 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; Translations: [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 CURRENT DRUG THERAPY] Onset: 09-08-2021 Episodic Other liver diseases (2 sources) Hepatic failure, unspecified without coma; Translations: [Hepatic failure, unspecified without coma] Onset: 01-08-2018 Chronic Other liver diseases (1 source) Unspecified cirrhosis of liver; Translations: [UNSPECIFIED CIRRHOSIS OF LIVER] Onset: 09-08-2021 Chronic Other liver diseases (1 source) Hepatic failure, unspecified without coma; Translations: [HEPATIC FAILURE UNS WITHOUT COMA] Onset: 09-08-2021 Episodic Residual codes; unclassified (2 sources) Altered mental status, unspecified; Translations: [ALTERED MENTAL STATUS UNSPECIFIED] Onset: 09-02-2021 Episodic Unclassified (3 sources) Altered mental status; Translations: [Altered mental status, unspecified] Onset: 01-08-2018 Episodic Unclassified (1 source) Unknown / UNK(Unknown) Onset: 02-04-2017 Unclassified (2 sources) Fracture of orbital floor, left side, initial encounter for closed fracture; Translations: [Fracture of orbital floor, left side, initial encounter for closed fracture] Onset: 08-03-2017 Unclassified (1 source) CONTACT W/AND (SUSP) EXPOS COVID-19; Translations: [CONTACT W/AND (SUSP) EXPOS COVID-19] Onset: 09-08-2021 Urinary tract infections (3 sources) Acute urinary tract infection; Translations: [Urinary tract infection, site not specified] Onset: 01-08-2018 Episodic Past or Other Problems Problem Classification Problem Date Documented Da te Episodic/Chronic Fluid and electrolyte disorders (3 sources) Hypokalemia; Translations: [Hypokalemia] Onset: 07-02-2017 Episodic Fracture of upper limb (10 sources) Unspecified fracture of the lower end of left radius, initial encounter for closed fracture; Translations: [Unspecified fracture of lower end of left ulna, initial encounter for closed fracture] Onset: 08-03-2017 08-04-2017 Episodic Other disorders of stomach and duodenum (2 sources) Other diseases of stomach and duodenum; Translations: [Other diseases of stomach and duodenum] Onset: 12-11-2022 Episodic Other gastrointestinal disorders (2 sources) Personal history of other diseases of the digestive system; Translations: [Personal history of other diseases of the digestive system] Onset: 06-24-2017 Episodic Other liver diseases (3 sources) Hepatic encephalopathy; Translations: [Abnormal levels of other serum enzymes] Onset: 07-02-2017 Episodic Skull and face fractures (2 sources) Maxillary fracture, unspecified side, initial encounter for closed fracture; Translations: [Maxillary fracture, unspecified side, initial encounter for closed fracture] Onset: 08-03-2017 Episodic Unclassified (6 sources) Other specified abnormal findings of blood chemistry; Translations: [Encounter for screening for lipoid disorders] Onset: 07-02-2017 Episodic Results Test Name Value Interpretation Reference Range Facility Office Visiton 04-01-2023 Follow-up visit [id number] Laney Larios 1955 F Date Provider Department Center 04/01/2023 SHO [facility]AVILLA [facility] Family History Problem Relation Age of Onset Colon cancer Neg Hx Family Status - Relation Status Age at Neg Hx Level of Service:36193 [place] OFFICE/OUTPATIENT ESTABLISHED MOD MDM 30-39 MIN Reason for Visit and Comments: Anemia [748585] autoummune Hepatitis [Other] Cirrhosis [239] Normal [facility] Office Visiton 12-31-2022 Follow-up visit [id number] Laney Larios 1955 F Date Provider Department Center 12/31/2022 SHO MARAVILL[facility] Family History Problem Relation Age of Onset Colon cancer Neg Hx Family Status - Relation Status Age at Neg Hx Level of Service:88649 [place] OFFICE/OUTPATIENT ESTABLISHED HIGH MDM 40-54 MIN Reason for Visit and Comments: Follow-up [479662] - Pt here for follow up to labs and US. Normal [facility] HISTOLOGY - TISSUE EXAMon LAB AP CASE REPORT Normal [facility] Comment on above: Result Comment: Surg ical Pathology Case: [id number] Authorizing Provider: Waylon Cavazos MD Collected: 12/11/2022 1105 Ordering Location: [facility] Received: 12/11/2022 1226 [facility] Endoscopy Pathologist: Neetu Fields MD Specimen: Small Intestine, Duodenum, duodenal lesion EMR r/o adenoma Performed By: #### L [id number] ####[facility] ([facility]AK[facility])[address] [place] [address] LAB AP CLINICAL INFORMATION Order Diagnoses Normal [facility] Comment on above: Result Comment: I85. 00 - Varices of esophagus determined by endoscopy (CMS/HCC) [ICD-10-CM] K31.89 - Duodenal mass [ICD-10-CM] Performed By: #### L [id number] ####[facility] ([facility])[address] [place] [address] LAB AP GROSS DESCRIPTION [facility] Comment on above: Result Comment: A. S mall Intestine, Duodenum. Specimen received in formalin in a container labeled Laney Larios. duodenal lesion EMR r/o adenoma. It consists of a soft quintana polypoid EMR tissue pinned onto a cardboard. It measures 0.5 X 0.7 X 0.8 cm. The posterior margin is inked black and the specimen is serially sectioned. The cut surface of each end is inked red which is to be embedded down by histology. The specimen is entirely submitted as follows: A1: end 1, bisected, perpendicular (red ink embedded down) A2: end 2, bisected, perpendicular (red ink embedded down) A3: remaining sequential sections Performed By: #### L [id number] ####[facility] ([facility])[address] [place] [address] LAB AP MICROSCOPIC DESCRIPTION Microscopic examination performed. [facility] Comment on above: Performed By: #### L [id number] ####[facility] ([facility])[address] [place] [address] LAB AP REPORT FINAL DIAGNOSIS NARRATIVE [facility] Comment on above: Result Comment: Duod enum, endoscopic mucosal resection: - Duodenal mucosa with focal gastric foveolar metaplasia. - No malignancy or dysplasia identified Performed By: #### L [id number] ####[facility] ([facility])[address] [place] [address] HPon 12-11-2022 HP History Of Present I theresa Larios is a 67 y.o. female presenting for upper endoscopy and endoscopic ultrasound to assess the esophagus to rule out esophageal varices and to assess the submucosal duodenal bulb lesion that was noted on a previous EGD. Past Medical History She has a past medical history of Autoimmune hepatitis (CMS/HCC), Bowel obstruction (CMS/HCC), Cirrhosis (CMS/HCC), COPD (chronic obstructive pulmonary disease) (CMS/HCC), COVID-19 (04/2019), Depression, Hepatic encephalopathy (CMS/HCC), HL (hearing loss), Pancreatic cyst, and Pancytopenia (CMS/HCC). Surgical History She has a past surgical history that includes Exploratory laparotomy; Hernia repair; Appendectomy; Small intestine surgery; Cholecystectomy; section, low transverse; and Hysterectomy. Social History She reports that she quit smoking about 8 years ago. Her smoking use included cigarettes. She has never used smokeless tobacco. She reports that she does not drink alcohol and does not use drugs. Family History Family History Problem Relation Name Age of Onset Colon cancer Neg Hx Allergies Patient has no known allergies. Medications (Not in a hospital admission) Review of Systems Constitutional: Negative. HENT: Negative. Eyes: Negative. Respiratory: Negative. Cardiovascular: Negative. Gastrointestinal: Negative. Last Recorded Vitals Visit Vitals BP 131/81 Pulse 57 Temp 36 ???C (96.8 ???F) (Temporal) Resp 16 Ht 1.6 m (5' 3 ) Wt 49.7 kg (109 lb 9.1 oz) SpO2 100% BMI 19.41 kg/m??? OB Status Postmenopausal Smoking Status Former BSA 1.49 m??? Physical Exam HEENT: Anicteric sclera, pale conjunctiva Chest: Unremarkable Heart: Unremarkable Abdomen: Soft, no tenderness Lower extremities: No edema Relevant Lab Results Lab Results Component Value Date CO2 24 02/17/2019 BUN 10 02/17/2019 CALCIUM 7.6 (L) 02/17/2019 EGFR >60 02/17/2019 EGFR >60 02/17/2019 Relevant Imaging Results EGD w Banding Addendum: I was present for the entire procedure from insertion of the scope and until the scope was completely withdrawn. I supervised the fellow throughout the procedure. Narrative: Esophagogastroduodenoscopy (EGD) Procedure Note Procedure: EGD with banding Indications: Patient with cirrhosis (AIH?) complicated with varices s/p EGD w/ banding last procedure perfored 08/2022 and 2 bands placed. Presenting today for repeat EGD for assessment and possible banding. Sedation: MAC Attending Physician: Dr. Ade Tan MD Music Therapist: Dr. Elise Coelho MD Procedure Details: Informed consent was obtained for the procedure, including sedation. Risks of infection, perforation, hemorrhage, adverse drug reaction, and aspiration were discussed. The patient was placed in the left lateral decubitus position. The patient was monitored continuously with ECG tracing, pulse oximetry, blood pressure monitoring, and direct observation. The gastroscope was inserted into the mouth and advanced under direct vision to second portion of the duodenum. A careful inspection was made as the gastroscope was withdrawn, including a retroflexed view of the proximal stomach; findings and interventions are described below. Appropriate photodocumentation was obtained. Findings: The esophagus was noted to have 2 columns of large varices w/ red jody signs. The varices partially flattened out on insufflation. A small area of ulcer (likely from banding) noted just above the GE junction. Using banding kit, total of 2 bands successfully placed resulting in deflation of varices. Portal hypertensive gastropathy (mild) noted in stomach particularly fundus and body. No gastric varices observed. The duodenal bulb was noted to have a 1cm subepithelial lesion at 12 o-clock position going into sweep. A previously placed endoclip noted just above the subepithelial lesion. No ulcer or active bleeding noted. The first and second part of duodenum were unremarkable. Specimens: No specimens collected during this procedure. Complications: None Estimated blood loss: Minimal Disposition: Home Condition: stable Impression: 2 large columns of varices w/ high risk signs, 2 ligation bands successfully placed with flattening of the mucosa post banding and no bleeding at the end of the procedure. Mild portal Hypertensive gastropathy 1 cm subepithelial lesion in duodenal bulb Previously placed clip in duodenal bulb noted. Recommendations: Repeat EGD w/ EUS in 2-4 weeks Follow-up in hepatology clinic. Clear liquid diet today and then soft tomorrow if tolerating okay. Hold Aspirin today if no CI Attending Attestation: I was present for the entire procedure from insertion of the scope and until the scope was completely withdrawn. I supervised the fellow throughout the procedure. Assessment/Plan A 67 y.o. female presenting for upper endoscopy and endoscopic ultrasound to assess th (more content not included)... Normal [facility] POCT GLUCOSE METER UNSOLICIT ED RESULTSon 12-11-2022 Glucose [Mass/Vol] 123 mg/dL High 70-105 [facility] Comment on above: Result Comment: [place] Performed By: #### L [id number] ####[facility] ([facility])[address] [place] [address] Prep for Procedureon 023 Prep for Procedure [id number] Laney Larios 1955 Provider Department Center 12/02/2022 WAYLON ZELAYA [facility] Family History Problem Relation Age of Onset Colon cancer Neg Hx Family Status - Relation Status Age at Neg Hx [facility] Office Visiton 11-02-2022 Follow-up visit [id number] Laney Larios 1955 F Provider Department Center 11/02/2022 [place]-SHO MILLER [facility] Pavi Family History Problem Relation Age of Onset Colon cancer Neg Hx Family Status - Relation Status Age at Neg Hx Level of Service:03752 [place] OFFICE/OUTPATIENT ESTABLISHED MOD MDM 30-39 MIN Reason for Visit and Comments: Follow-up [[id number]] [facility] 29on 10-14-2022 29 Encounter addended b y: Minnie Browne RN on: 10/15/2022 12:52 PM Actions taken: Contacts section saved [facility] HPon 10-14-2022 -------- Attestation signed by Ade Tan MD at 10/14/2022 9:43 AM I personally saw and examined the patient on the same date of service as fellow. I discussed the findings and therapeutic plan with the fellow. I agree with the documentation, except for any edits/updates below. Teaching Physician's Revisions: Shirley for EGD with anesthesia and possible EVL Gastroenterology History and Physical Note IDENTIFYING DATA PATIENT: Laney Larios HISTORY OF PRESENT ILLNESS Laney Larios is a 67 y.o. female with previous history of Cirrhosis (from [facility]?) complicated with varices s/p banding, last EGD 09/02/22 (2 bands placed for high risk varices), here for repeat EGD for possible banding vs assessment. PAST MEDICAL, SURGICAL, FAMILY, and SOCIAL HISTORY Past Medical History: Past Medical History: Diagnosis Date Autoimmune hepatitis (CMS/HCC) Bowel obstruction (CMS/HCC) HISTORY Cirrhosis (CMS/HCC) COPD (chronic obstructive pulmonary disease) (CMS/HCC) COVID-19 04/2019 Depression Hepatic encephalopathy HL (hearing loss) Pancreatic cyst Pancytopenia (CMS/HCC) Past Surgical History: Past Surgical History: Procedure Laterality Date APPENDECTOMY SECTION, LOW TRANSVERSE CHOLECYSTECTOMY EXPLORATORY LAPAROTOMY [address] macedo to repair hernia HERNIA REPAIR HYSTERECTOMY SMALL INTESTINE SURGERY Family History: Family History Problem Relation Name Age of Onset Colon cancer Neg Hx Social History: Social History Tobacco Use Smoking status: Never Smokeless tobacco: Never Vaping Use Vaping Use: Never used Substance Use Topics Alcohol use: Never Drug use: Never Allergies: No Known Allergies Home Medications: Prior to Admission medications Medication Sig Start Date End Date Taking? Authorizing Provider albuterol 2.5 mg /3 mL (0.083 %) nebulizer solution albuterol sulfate 2.5 mg/3 mL (0.083 %) solution for nebulization Historical Provider, amLODIPine-benazepriL (Lotrel) 10-40 mg capsule amlodipine 10 mg-benazepril 40 mg capsule Historical Provider, aspirin 81 mg chewable tablet aspirin 81 mg chewable tablet Historical Provider, azaTHIOprine (Imuran) 50 mg tablet every 12 (twelve) hours. 12/07/19 Historical Provider, benzocaine/menthol (CEPACOL SORE THROAT, SADAF-MEN, MM) Place into mouth between cheek and gum in the morning, at noon, in the evening, and at bedtime. PRN Historical Provider, bisacodyl (Dulcolax) 10 mg suppository in the morning. Historical Provider, cholecalciferol (D3-5) 5,000 Units tablet Take 5,000 Units by mouth in the morning. Historical Provider, ciprofloxacin (Cipro) 500 mg tablet ciprofloxacin 500 mg tablet Historical Provider, cyanocobalamin (Vitamin B-12) 1,000 mcg tablet in the morning. Historical Provider, dextran 70-hypromellose (Bion Tears) 0.1-0.3 % ophthalmic solution 1 drop if needed in the morning, at noon, and at bedtime for dry eyes. Historical Provider, docusate sodium (Colace) 100 mg capsule 1 capsule in the morning. Historical Provider, doxycycline (Monodox) 100 mg capsule doxycycline monohydrate 100 mg capsule Historical Provider, erythromycin (Romycin) 5 mg/gram (0.5 %) ophthalmic ointment erythromycin 5 mg/gram (0.5 %) eye ointment Historical Provider, fluconazole (Diflucan) 150 mg tablet fluconazole 150 mg tablet Historical Provider, fluticasone (Flonase) 50 mcg/actuation nasal spray Administer 2 sprays into affected nostril(s) in the morning. 06/18/22 Historical ProviderMD fluticasone (Flovent) 220 mcg/actuation inhaler Flovent HFA 220 mcg/actuation aerosol inhaler Historical Provider, guar gum (Nutrisource Fiber) packet Take 1 packet by mouth in the morning. Historical Provider, ibuprofen 400 mg tablet Take 400 mg by mouth every 6 (six) hours if needed for moderate pain (4-7 pain score). Historical Provider, lactulose 10 gram/15 mL solution Take 30 mL by mouth every 8 (eight) hours. Historical Provider, lidocaine (Xylocaine) 5 % ointment every 6 (six) hours. Historical Provider, loratadine (Claritin) 10 mg tablet in the morning. Historical Provider, magnesium oxide 400 mg magnesium capsule 1 capsule. Historical Provider, menthol (Biofreeze, menthol,) 10 % cream Apply topically if needed. Historical Provider, midodrine (Proamatine) 10 mg tablet Take 10 mg by mouth in the morning, at noon, and at bedtime. Historical Provider, multivitamin (Theragran-M) 9 mg iron-400 mcg tablet Take 1 tablet by mouth in the morning. Historical Provider, nicotine (Nicoderm CQ) 21 mg/24 hr patch nicotine 21 mg/24 hr daily transdermal patch Historical Provider, nitrofurantoin, macrocrystal-monohydrate, (Macrobid) 100 mg capsule nitrofurantoin monohydrat (more content not included)... Normal [facility] Orders Onlyon 10-14-2022 Orders Only [id number] Laney Larios 1955 Provider Department Center 10/14/2022 ELISE MARES [facility] [place] [facility] Family History Problem Relation Age of Onset Colon cancer Neg Hx Family Status - Relation Status Age at Neg Hx [facility] POCT GLUCOSE METER UNSOLICIT ED RESULTSon 10-14-2022 Glucose [Mass/Vol] 130 mg/dL High 70-105 [facility] Comment on above: Result Comment: jhag eman Performed By: #### L [id number] ####[facility] ([facility])[address] [place] [address] Prep for Procedureon 023 Prep for Procedure [id number] Laney Larios 1955 Provider Department Center 10/01/2022 [place]-ANGELO LR [facility] Family History Problem Relation Age of Onset Colon cancer Neg Hx Family Status - Relation Status Age at Neg Hx [facility] Documentationon 09-15-2022 Documentation [id number] Laney Larios 1955 Provider Department [place] 09/15/2022 SHO [facility] Family History Problem Relation Age of Onset Colon cancer Neg Hx Family Status - Relation Status Age at Neg Hx Reason for Visit and Comments: Specialty Pharmacy Note [Other] - [place] Renewal [facility] Telephoneon 09-15-2022 Telephone [id number] Laney Larios 1955 Provider Department [place] 09/15/2022 SHO [facility]AV[facility] Family History Problem Relation Age of Onset Colon cancer Neg Hx Family Status - Relation Status Age at Neg Hx Normal [facility] Office Visiton 09-09-2022 Follow-up visit [id number] Laney Larios 1955 F Date Provider Department Center 09/09/2022 SHO MARAVILLA [facility] Family History Problem Relation Age of Onset Colon cancer Neg Hx Family Status - Relation Status Age at Neg Hx Level of Service:41633 [place] OFFICE/OUTPATIENT ESTABLISHED MOD MDM 30-39 MIN Reason for Visit and Comments: Follow-up [332344] [facility] HPon 09-01-2022 HP H&P reviewed. The rukhsana da silva was examined and there are no changes to the H&P. [facility] POCT GLUCOSE METER UNSOLICIT ED RESULTSon 09-01-2022 Glucose [Mass/Vol] 96 mg/dL Normal 70-105 [facility] Comment on above: Result Comment: [email or web address] Performed By: #### L [id number] ####[facility] ([facility])[address] [place] [address] Glucose [Mass/Vol] 94 mg/dL Normal 70-105 [facility] Comment on above: Result Comment: [email or web address] Performed By: #### L [id number] ####[facility] ([facility])[address] [place] [address] [id number] 08-26-2022 [id number] Faxed instructions t [facility] attn nursing fax#[phone] Medications to take AM DOS:midodrine sertraline Hold instructions: nsaids x5d NPO after midnight. 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 Remove jewelry and leave at home DOS. Bring ins card and ID. [facility] Prep for Procedureon 023 Prep for Procedure [id number] Laney Larios 1955 F Date Provider Department Center 08/26/2022 ANGELO TORRES [facility] Family History Problem Relation Age of Onset Colon cancer Neg Hx Family Status - Relation Status Age at Neg Hx [facility] 29on 08-25-2022 29 Encounter addended b y: Ade Tan MD on: 10/19/2022 9:44 AM Actions taken: Order list changed [facility] CBC WITH AUTO DIFFERENTIALon 08-25-2022 Erythrocyte distribution width (RBC) [Ratio] 14.6 % Normal 11.5-15.0 [facility] Comment on above: Performed By: #### L [id number] ####[facility] ([facility])[address] [place] [address] ERYTHROCYTE MEAN CORPUSCULAR HEMOGLOBIN CONCENTRATION (G/DL) BY AUTOMATED 32.1 g/dL Normal 32.0-35.0 [facility] Comment on above: Performed By: #### L [id number] ####[facility] ([facility])[address] [place] [address] Hematocrit (Bld) [Volume fraction] 31.2 % Low 36.0-48.0 [facility] Comment on above: Performed By: #### L [id number] ####[facility] ([facility])[address] [place] [address] Hemoglobin (Bld) [Mass/Vol] 10.0 g/dL Low 12.0-15.0 [facility] Comment on above: Performed By: #### L [id number] ####[facility] ([facility])[address] [place] [address] IMMATURE PLATELET FRACTION % 2.6 % Normal 0.8-6.3 [facility] Comment on above: Performed By: #### L [id number] ####[facility] ([facility])[address] [place] [address] MCH (RBC) [Entitic mass] 35.6 pg High 27.0-33.0 [facility] Comment on above: Performed By: #### L [id number] ####[facility] ([facility])[address] [place] [address] MCV (RBC) [Entitic vol] 111.0 fL High 82.0-98.0 [facility] Comment on above: Performed By: #### L [id number] ####[facility] ([facility])[address] [place] [address] NRBC (PER 100 WBCS) BY AUTOMATED COUNT 0.0 % Normal 0.0-0.0 [facility] Comment on above: Performed By: #### L [id number] ####[facility] ([facility])[address] [place] [address] PLATELETS (10*3/UL) IN BLOOD AUTOMATED COUNT 49 10*3/uL Low 150-400 [facility] Comment on above: Performed By: #### L [id number] ####[facility] ([facility])[address] [place] [address] RBC (Bld) [#/Vol] 2.81 10*6/uL Low 3.80-5.[address] [facility] Comment on above: Performed By: #### L [id number] ####[facility] ([facility])[address] [place] [address] WBC (Bld) [#/Vol] 2.82 10*3/uL Low 4.00-10.[address] [facility] Comment on above: Performed By: #### L [id number] ####[facility] ([facility])[address] [place] [address] HISTOLOGY - TISSUE EXAMon LAB AP CASE REPORT Normal [facility] Comment on above: Result Comment: Surg ical Pathology Case: [id number] Authorizing Provider: Ade Tan MD Collected: 08/25/2022 1129 Ordering Location: [facility] Received: 08/25/2022 [facility] Endoscopy Pathologist: Akiko Francisco MD Specimen: Small Intestine, Duodenum, DUODENAL NODULES BX R/O ADENOMA Performed By: #### L [id number] ####[facility] ([facility])[address] [place] [address] LAB AP CLINICAL INFORMATION Order Diagnoses Normal [facility] Comment on above: Result Comment: I85. 00 - Esophageal varices without bleeding, unspecified esophageal varices type (CMS/HCC) [ICD-10-CM] Performed By: #### L [id number] ####[facility] ([facility])[address] [place] [address] LAB AP GROSS DESCRIPTION [facility] Comment on above: Result Comment: A. S mall Intestine, Duodenum. Received in formalin in a container labeled Laney Larios, DUODENAL NODULES BX R/O ADENOMA, is 1 pale-quintana mucosal tissue fragment measuring 0.4 x 0.3 x 0.2 cm. The specimen is submitted entirely in one cassette. Alicia Chin, Student Fellow Performed By: #### L [id number] ####[facility] ([facility])[address] [place] [address] LAB AP MICROSCOPIC DESCRIPTION Microscopic examination performed. [facility] Comment on above: Performed By: #### L [id number] ####[facility] ([facility])[address] [place] [address] LAB AP REPORT FINAL DIAGNOSIS NARRATIVE [facility] Comment on above: Result Comment: A. S mall bowel, duodenal nodule, biopsy: -Duodenal mucosa with gastric foveolar metaplasia. -Negative for dysplasia or malignancy. Amendment electronically signed by Akiko Francisco MD on 08/28/2022 at 12:31 PM Corrected result: Previously reported on 08/26/2022 at 1658 EST. Performed By: #### L [id number] ####[facility] ([facility])[address] [place] [address] MANUAL DIFFERENTIALon 2022 BASOPHILS (10*3/UL) IN BLOOD BY CALCULATION 0.01 10*3/uL Normal [facility] Comment on above: Performed By: #### L [id number] ####[facility] ([facility])[address] [place] [address] BASOPHILS/100 LEUKOCYTES IN BLOOD BY AUTOMATED COUNT 0.4 % Normal 0.0-1.0 [facility] Comment on above: Performed By: #### L [id number] ####[facility] ([facility])[address] [place] [address] EOSINOPHILS (10*3/UL) IN BLOOD BY CALCULATION 0.07 10*3/uL Normal [facility] Comment on above: Performed By: #### L [id number] ####[facility] ([facility])[address] [place] [address] EOSINOPHILS/100 LEUKOCYTES IN BLOOD BY AUTOMATED COUNT 2.5 % Normal 0.0-6.0 [facility] Comment on above: Performed By: #### L [id number] ####[facility] ([facility])[address] [place] [address] IMMATURE GRANULOCYTES (10*3/UL) IN BLOOD BY CALCULATION 0.01 Normal [facility] Comment on above: Performed By: #### L [id number] ####[facility] ([facility])[address] [place] [address] IMMATURE GRANULOCYTES/100 LEUKOCYTES IN BLOOD BY AUTOMATED COUNT 0.4 % Normal 0.0-1.0 [facility] Comment on above: Performed By: #### L [id number] ####[facility] ([facility])[address] [place] [address] LYMPHOCYTES (10*3/UL) IN BLOOD BY CALCULATION 0.77 10*3/uL Low 1.20-4.00 [facility] Comment on above: Performed By: #### L [id number] ####[facility] ([facility])[address] [place], [place] [address] LYMPHOCYTES/100 LEUKOCYTES IN BLOOD BY AUTOMATED COUNT 27.3 % Normal 20.0-45.0 [facility] Comment on above: Performed By: #### L [id number] ####[facility] ([facility])[address] [place] [address] MONOCYTES (10*3/UL) IN BLOOD BY CALCUATION 0.26 10*3/uL Normal [facility] Comment on above: Performed By: #### L [id number] ####[facility] ([facility])[address] [place] [address] MONOCYTES/100 LEUKOCYTES IN BLOOD BY AUTOMATED COUNT 9.2 % Normal 5.0-12.0 [facility] Comment on above: Performed By: #### L [id number] ####[facility] ([facility])[address] [place] [address] NEUTROPHILS (10*3/UL) IN BLOOD BY CALCULATION 1.7 10*3/uL Normal 1.6-7.6 [facility] Comment on above: Performed By: #### L [id number] ####[facility] ([facility])[address] [facility] [place] [address] NEUTROPHILS/100 LEUKOCYTES IN BLOOD BY AUTOMATED COUNT 60.2 % Normal 40.0-72.0 [facility] Comment on above: Performed By: #### L [id number] ####[facility] ([facility])[address] [place] [facility] [place] [address] POCT GLUCOSE METER UNSOLICIT ED RESULTSon 08-25-2022 Glucose [Mass/Vol] 127 mg/dL High 70-105 [facility] Comment on above: Result Comment: dhol as Performed By: #### L [id number] ####[facility] ([facility])[address] [place] [facility] [address] PROTIME-INRon 08-25-2022 INR IN PPP BY COAGULATION ASSAY 1.18 High 0.90-1.10 [facility] Comment on above: Result Comment: ACCC P RECOMMENDED INR FOR WARFARIN THERAPY CONDITION INR PROPHYLAXIS OF VENOUS THROMBOSIS 2-3 (HIGH-RISK SURGERY) TREATMENT OF VENOUS THROMBOSIS 2-3 TREATMENT OF PULMONARY EMBOLISM 2-3 PREVENTION OF SYSTEMIC EMBOLISM: 2-3 ACUTE MYOCARDIAL INFARCTION TISSUE HEART VALVES VALVULAR HEART DISEASE ATRIAL FIBRILLATION RECURRENT SYSTEMIC EMBOLISM MECHANICAL HEART VALVE 2.5-3.5 FROM: ORAL ANTICOAGULANTS. MECHANISM OF ACTION, CLINICAL EFFECTIVENESS, AND OPTIMAL THERAPEUTIC RANGE. CHEST 1995;108:231S-246S. Performed By: #### L [id number] ####[facility] ([facility])[address] [place] [address] PROTHROMBIN TIME (PT) IN PPP BY COAGULATION ASSAY 15.0 Seconds High 12.3-14.8 [facility] Comment on above: Performed By: #### L [id number] ####[facility] ([facility])[address] [place] [address] Telephoneon 08-24-2022 Telephone [id number] Ventura 1955 F [facility] Department [place] 08/24/2022 RACHEL LEONARD [facility] Family History Problem Relation Age of Onset Colon cancer Neg Hx Family Status - Relation Status Age at Neg Hx Normal [facility] Prep for Procedureon 023 Prep for Procedure [id number] LariosLoriLaney 1955 [facility] Department [place] 08/17/2022 MARCELINA VARELA [facility] Family History Problem Relation Age of Onset Colon cancer Neg Hx Family Status - Relation Status Age at Neg Hx Normal [facility] Prep for Procedureon 023 Prep for Procedure [id number] Laney Larios 1955 [facility] Department [place] 08/11/2022 ADE CORDERO [facility] [place] Family History Problem Relation Age of Onset Colon cancer Neg Hx Family Status - Relation Status Age at Neg Hx Normal [facility] Orders Onlyon 07-15-2022 Orders Only [id number] Ventura 1955 [facility] Department [place] 07/15/2022 [id number], HISTORICAL MP [facility] Family History Problem Relation Age of Onset Colon cancer Neg Hx Family Status - Relation Status Age at Neg Hx Normal [facility] Office Visiton 06-18-2022 Follow-up visit [id number] Ventura 1955 [facility] Department [place] 06/18/2022 137-SHO MILLER [facility] Family History Problem Relation Age of Onset Colon cancer Neg Hx Family Status - Relation Status Age at Neg Hx Level of Service:41707 [place] OFFICE/OUTPATIENT ESTABLISHED MOD MDM 30-39 MIN Reason for Visit and Comments: Follow-up [259647] [facility] 36on 05-14-2022 36 2nd attempt to conta ct patient to schedule. Patient unavailable. Unable to contact letter mailed. [facility] 36on 05-13-2022 36 Attempted to reach p atient to schedule follow up. Voicemail not set up. [facility] 36on 05-11-2022 36 Patient calling stat ing that she received a call from you but no message was left. Pt is wanting you to give her a phone call back. [facility] CULTURE URINEon 09-04-2021 CULTURE URINE Isolate 1 Escherichia coli >100,000 cfu/mL of ORGANISM 1 Escherichia coli ANTIBIOTIC M.I.C RX STATUS Ampicillin <=2 S F Ampicillin/Sulbactam <=2 S F Piperacillin/Tazobactam <=4 S F Cefazolin <=4 S F Ceftazidime <=1 S F Ceftriaxone <=1 S F Ertapenem <=0.5 S F Imipenem <=0.25 S F Amikacin <=2 S F Gentamicin <=1 S F Tobramycin <=1 S F Ciprofloxacin <=0.25 S F Levofloxacin <=0.12 S F Nitrofurantoin <=16 S F Trimethoprim/Sulfamethoxazol e <=20 S F Normal [facility] Comment on above: Performed By: #### C BC #### [facility] [address] [place] [address] Dr. Ronald Montalvo AMMONIAon 09-03-2021 Ammonia (P) [Moles/Vol] 28 umol/L Normal 10-30 [facility] Comment on above: Performed By: #### A MM #### [facility] [address] [place] [address] Dr. Ronald Montalvo CBC AUTO DIFFon 09-03-2021 BASO # 0.0 103/ul Normal 0.0-0.1 [facility] Comment on above: Performed By: #### C BC #### [facility] [address] [place] [address] Dr. Ronald Montalvo Basophils/100 WBC (Bld) 0.6 % Normal 0.2-2.0 [facility] Comment on above: Performed By: #### C BC #### [facility] [address] [place] [address] Dr. Ronald Montalvo EO # 0.1 103/ul Normal 0.0-0.7 [facility] Comment on above: Performed By: #### C BC #### [facility] [address] [place] [address] Dr. Ronald Montalvo Eosinophils/100 WBC (Bld) 3.3 % Normal 0.9-7.0 [facility] Comment on above: Performed By: #### C BC #### [facility] [address] [place] [address] Dr. Ronald Montalvo Erythrocyte distribution width (RBC) [Ratio] 15.2 % Critically high 11.0-15.0 [facility] Comment on above: Performed By: #### C BC #### [facility] [address] [place] [address] Dr. Ronald Montalvo Hematocrit (Bld) [Volume fraction] 25.2 % Critically low 36.0-48.0 [facility] Comment on above: Performed By: #### C BC #### [facility] [address] [place] [address] Dr. Ronald Montalvo Hemoglobin (Bld) [Mass/Vol] 8.4 g/dL Critically low 12.0-16.0 [facility] Comment on above: Performed By: #### C BC #### [facility] [address] [place] [address] Dr. Ronald Montalvo IG # 0.00 10e3/ul Normal 0.00-0.03 [facility] Comment on above: Performed By: #### C BC #### [facility] [address] [place] [address] Dr. Ronald Montalvo IG % 0.0 % Normal 0.0-0.5 [facility] Comment on above: Performed By: #### C BC #### [facility] [address] [place] [address] Dr. Ronald Montalvo LYMPH # 0.7 103/ul Critically low 1.2-3.8 [facility] Comment on above: Performed By: #### C BC #### [facility] [address] [place] [address] Dr. Ronald Montalvo Lymphocytes/100 WBC (Bld) 38.7 % Normal 20.5-60.0 [facility] Comment on above: Performed By: #### C BC #### [facility] [address] [place] [address] Dr. Ronald Montalvo MANUAL DIFF REQ NO Normal [facility] Comment on above: Performed By: #### C BC #### [facility] [address] [place] [address] Dr. Ronald Montalvo MCH (RBC) [Entitic mass] 38.5 pg Critically high 26.7-34.0 [facility] Comment on above: Performed By: #### C BC #### [facility] [address] [place] [address] Dr. Ronald Montalvo MCHC (RBC) [Mass/Vol] 33.3 g/dL Normal 29.9-35.2 [facility] Comment on above: Performed By: #### C BC #### [facility] [address] [place] [address] Dr. Ronald Montalvo MCV (RBC) [Entitic vol] 115.6 fL Critically high 81.0-99.0 [facility] Comment on above: Performed By: #### C BC #### [facility] [address] [place] [address] Dr. Ronald Montalvo MONO # 0.2 103/ul Critically low 0.3-0.8 [facility] Comment on above: Performed By: #### C BC #### [facility] [address] [place] [address] Dr. Ronald Montalvo Monocytes/100 WBC (Bld) 11.0 % Normal 1.7-12.0 [facility] Comment on above: Performed By: #### C BC #### [facility] [address] [place] [address] Dr. Ronald Montalvo NEUT # 0.8 103/ul Critically low 1.4-6.5 [facility] Comment on above: Performed By: #### C BC #### [facility] [address] [place] [address] Dr. Ronald Montalvo Neutrophils/100 WBC (Bld) 46.4 % Normal 43.0-75.0 [facility] Comment on above: Performed By: #### C BC #### [facility] [address] [place] [address] Dr. Ronald Montalvo Platelet mean volume (Bld) [Entitic vol] 11.6 fL Normal 9.5-13.5 [facility] Comment on above: Performed By: #### C BC #### [facility] [address] [place] [address] Dr. Ronald Mnotalvo PLT 64 103/ul Critically low 150-450 [facility] Comment on above: Performed By: #### C BC #### [facility] [address] [place] [address] Dr. Ronald Montalvo RBC 2.18 106/ul Critically low 4.20-5.40 [facility] Comment on above: Performed By: #### C BC #### [facility] [address] [place] [address] Dr. Ronald Montalvo WBC 1.8 103/ul Critically low 4.0-11.0 [facility] Comment on above: Performed By: #### C BC #### [facility] [address] [place] [address] Dr. Ronald Montalvo PROF 14(COMP METB)on 022 Albumin [Mass/Vol] 2.9 g/dL Critically low 3.5-5.0 [facility] Comment on above: Performed By: #### C BCMAN #### [facility] [address] [place] [address] Dr. Ronald Montalvo Albumin/Globulin [Mass ratio] 0.8 {ratio} Normal [facility] Comment on above: Performed By: #### C BCMAN #### [facility] [address] [place] [address] Dr. Ronald Montalvo ALP [Catalytic activity/Vol] 89 U/L Normal 38-126 [facility] Comment on above: Performed By: #### C BCSISSY #### [facility] [address] [place] [address] Dr. Ronald Montalvo ALT [Catalytic activity/Vol] 13 U/L Normal 9-52 [facility] Comment on above: Performed By: #### C BCSISSY #### [facility] [address] [address] [address] Ronald Montalvo Anion gap [Moles/Vol] 9.5 mmol/L Normal [facility] Comment on above: Performed By: #### C BCSISSY #### [facility] [address] [address] [address] Ronald Montalvo AST [Catalytic activity/Vol] 20 U/L Normal 14-36 [facility] Comment on above: Performed By: #### C JIL #### [facility] [address] [place] [address] Dr. Ronald Montalvo Bilirubin [Mass/Vol] 1.0 mg/dL Normal 0.2-1.3 [facility] Comment on above: Performed By: #### C BCSISSY #### [facility] [address] [place] [address] Dr. Ronald Montalvo Calcium [Mass/Vol] 9.1 mg/dL Normal 8.4-10.2 [facility] Comment on above: Performed By: #### C JIL #### [facility] [address] [address] [address] Ronald Montalvo Chloride [Moles/Vol] 113 mmol/L Critically high 98-107 [facility] Comment on above: Performed By: #### C BCSISSY #### [facility] [address] [address] [address] Ronald Montalvo CO2 [Moles/Vol] 28.1 mmol/L Normal 22.0-30.0 [facility] Comment on above: Performed By: #### C JIL #### [facility] [address] [address] [address] Ronald Montalvo Creatinine [Mass/Vol] 1.15 mg/dL Critically high 0.52-1.04 [facility] Comment on above: Performed By: #### C BCMAN #### [facility] [address] [address] [address] Ronald Montalvo EGFR-AF [place] 57 mL/min/1.73m2 Critically low >=60 [facility] Comment on above: Performed By: #### C BCMAN #### [facility] [address] [address] [address] Ronald Montalvo EGFR-NON AF [place] 47 mL/min/1.73m2 Critically low >=60 [facility] Comment on above: Performed By: #### C BCMAN #### [facility] [address] [address] [address] Ronald Montalvo Globulin (S) [Mass/Vol] 3.6 g/dL Normal [facility] Comment on above: Performed By: #### C BCMAN #### [facility] [address] [address] [address] Ronald Montalvo Glucose [Mass/Vol] 92 mg/dL Normal 74-106 [facility] Comment on above: Performed By: #### C BCMAN #### [facility] [address] [address] [address] Ronald Montalvo Potassium [Moles/Vol] 3.6 mmol/L Normal 3.4-5.0 [facility] Comment on above: Performed By: #### C BCMAN #### [facility] [address] [address] [address] Ronald Montalvo Protein [Mass/Vol] 6.5 g/dL Normal 6.1-8.2 [facility] Comment on above: Performed By: #### C BCMAN #### [facility] [address] [address] [address] Ronald Montalvo Sodium [Moles/Vol] 147 mmol/L Critically high 137-145 [facility] Comment on above: Performed By: #### C BCMAN #### [facility] [address] [address] [address] Ronald Montalvo Urea nitrogen [Mass/Vol] 16.0 mg/dL Normal 7.0-17.0 [facility] Comment on above: Performed By: #### C BCMAN #### [facility] [address] [place] [address] Dr. Ronald Montalvo Urea nitrogen/Creatinin e [Mass ratio] 13.9 mg/mg Normal [facility] Comment on above: Performed By: #### C BCMAN #### [facility] [address] [place] [address] Dr. Ronald Montalvo AMMONIAon 09-02-2021 Ammonia (P) [Moles/Vol] 71 umol/L Critically high 10-30 [facility] Comment on above: Result Comment: test repeated Performed By: #### C BC #### [facility] [address] [place] [address] Dr. Ronald Montalvo CBC AUTO DIFFon 09-02-2021 BASO # 0.0 103/ul Normal 0.0-0.1 [facility] Comment on above: Performed By: #### C BC #### [facility] [address] [place] [address] Dr. Ronald Montalvo Basophils/100 WBC (Bld) 0.0 % Critically low 0.2-2.0 [facility] Comment on above: Performed By: #### C BC #### [facility] [address] [place] [address] Dr. Ronald Montalvo EO # 0.0 103/ul Normal 0.0-0.7 [facility] Comment on above: Performed By: #### C BC #### [facility] [address] [place] [address] Dr. Ronald Montalvo Eosinophils/100 WBC (Bld) 3.1 % Normal 0.9-7.0 [facility] Comment on above: Performed By: #### C BC #### [facility] [address] [place] [address] Dr. Ronald Montalvo Erythrocyte distribution width (RBC) [Ratio] 15.1 % Critically high 11.0-15.0 [facility] Comment on above: Performed By: #### C BC #### [facility] [address] [place] [address] Dr. Ronald Montalvo Hematocrit (Bld) [Volume fraction] 24.5 % Critically low 36.0-48.0 [facility] Comment on above: Performed By: #### C BC #### [facility] [address] [place] [address] Dr. Ronald Montalvo Hemoglobin (Bld) [Mass/Vol] 8.0 g/dL Critically low 12.0-16.0 [facility] Comment on above: Performed By: #### C BC #### [facility] [address] [address] [address] Ronald Montalvo IG # 0.00 10e3/ul Normal 0.00-0.03 [facility] Comment on above: Performed By: #### C BC #### [facility] [address] [place] [address] Dr. Ronald Montalvo IG % 0.0 % Normal 0.0-0.5 [facility] Comment on above: Performed By: #### C BC #### [facility] [address] [place] [address] Dr. Ronald Montalvo LYMPH # 0.6 103/ul Critically low 1.2-3.8 [facility] Comment on above: Performed By: #### C BC #### [facility] [address] [place] [address] Dr. Ronald Montalvo Lymphocytes/100 WBC (Bld) 47.3 % Normal 20.5-60.0 [facility] Comment on above: Performed By: #### C BC #### [facility] [address] [place] [address] Dr. Ronald Montalvo MANUAL DIFF REQ NO Normal [facility] Comment on above: Performed By: #### C BC #### [facility] [address] [place] [address] Dr. Ronald Montalvo MCH (RBC) [Entitic mass] 38.6 pg Critically high 26.7-34.0 [facility] Comment on above: Performed By: #### C BC #### [facility] [address] [place] [address] Dr. Ronald Montalvo MCHC (RBC) [Mass/Vol] 32.7 g/dL Normal 29.9-35.2 [facility] Comment on above: Performed By: #### C BC #### [facility] [address] [place] [address] Dr. Ronald Montalvo MCV (RBC) [Entitic vol] 118.4 fL Critically high 81.0-99.0 [facility] Comment on above: Performed By: #### C BC #### [facility] [address] [place] [address] Dr. Ronald Montalvo MONO # 0.2 103/ul Critically low 0.3-0.8 [facility] Comment on above: Performed By: #### C BC #### [facility] [address] [place] [address] Dr. Ronald Montalvo Monocytes/100 WBC (Bld) 12.4 % Critically high 1.7-12.0 [facility] Comment on above: Performed By: #### C BC #### [facility] [address] [place] [address] Dr. Ronald Montalvo NEUT # 0.5 103/ul Critically low 1.4-6.5 [facility] Comment on above: Performed By: #### C BC #### [facility] [address] [place] [address] Dr. Ronald Montalvo Neutrophils/100 WBC (Bld) 37.2 % Critically low 43.0-75.0 [facility] Comment on above: Performed By: #### C BC #### [facility] [address] [place] [address] Dr. Ronald Montalvo Platelet mean volume (Bld) [Entitic vol] 10.3 fL Normal 9.5-13.5 [facility] Comment on above: Performed By: #### C BC #### [facility] [address] [place] [address] Dr. Ronald Montalvo PLT 38 103/ul Critically low 150-450 [facility] Comment on above: Performed By: #### C BC #### [facility] [address] [place] [address] Dr. Ronald Montalvo RBC 2.07 106/ul Critically low 4.20-5.40 [facility] Comment on above: Performed By: #### C BC #### [facility] [address] [place] [address] Dr. Ronald Montalvo WBC 1.5 103/ul Critically low 4.0-11.0 [facility] Comment on above: Performed By: #### C BC #### [facility] [address] [place] [address] Dr. Ronald Montalvo CULTURE BLOODon 09-02-2021 Microscopic examination of blood, culture Culture Observations: No growth at 5 days. [facility] Comment on above: Performed By: #### C BC #### [facility] [address] [place] [address] Dr. Ronald Montalvo Microscopic examination of blood, culture Culture Observations: No growth at 5 days. Normal [facility] Comment on above: Performed By: #### C BC #### [facility] [address] [place] [address] Dr. Ronald Montalvo PROF 14(COMP METB)on 022 Albumin [Mass/Vol] 2.8 g/dL Critically low 3.5-5.0 [facility] Comment on above: Performed By: #### C MP #### [facility] [address] [place] [address] Dr. Ronald Montalvo Albumin/Globulin [Mass ratio] 0.8 {ratio} [facility] Comment on above: Performed By: #### C MP #### [facility] [address] [place] [address] Dr. Ronald Montalvo ALP [Catalytic activity/Vol] 88 U/L Normal 38-126 [facility] Comment on above: Performed By: #### C MP #### [facility] [address] [place] [address] Dr. Ronald Montalvo ALT [Catalytic activity/Vol] 10 U/L Normal 9-52 [facility] Comment on above: Performed By: #### C MP #### [facility] [address] [place] [address] Dr. Ronald Montalvo Anion gap [Moles/Vol] 6.7 mmol/L Normal [facility] Comment on above: Performed By: #### C MP #### [facility] [address] [address] [address] Ronald Montalvo AST [Catalytic activity/Vol] 20 U/L Normal 14-36 [facility] Comment on above: Performed By: #### C MP #### [facility] [address] [address] [address] Ronald Montalvo Bilirubin [Mass/Vol] 1.3 mg/dL Normal 0.2-1.3 [facility] Comment on above: Performed By: #### C MP #### [facility] [address] [place] [address] Dr. Ronald Montalvo Calcium [Mass/Vol] 8.7 mg/dL Normal 8.4-10.2 [facility] Comment on above: Performed By: #### C MP #### [facility] [address] [address] [address] Ronald Montalvo Chloride [Moles/Vol] 111 mmol/L Critically high 98-107 [facility] Comment on above: Performed By: #### C MP #### [facility] [address] [address] [address] Ronald Montalvo CO2 [Moles/Vol] 30.5 mmol/L Critically high 22.0-30.0 [facility] Comment on above: Performed By: #### C MP #### [facility] [address] [address] [address] Ronald Montalvo Creatinine [Mass/Vol] 1.03 mg/dL Normal 0.52-1.04 [facility] Comment on above: Performed By: #### C MP #### [facility] [address] [address] [address] Ronald Montalvo EGFR-AF [place] >60 Normal >=60 [facility] Comment on above: Performed By: #### C MP #### [facility] [address] [address] [address] Ronald Montalvo EGFR-NON AF [place] 54 mL/min/1.73m2 Critically low >=60 [facility] Comment on above: Performed By: #### C MP #### [facility] [address] [address] [address] Ronald Montalvo Globulin (S) [Mass/Vol] 3.7 g/dL Normal [facility] Comment on above: Performed By: #### C MP #### [facility] [address] [address] [address] Ronald Montalvo Glucose [Mass/Vol] 103 mg/dL Normal 74-106 [facility] Comment on above: Performed By: #### C MP #### [facility] [address] [address] [address] Ronald Montalvo Potassium [Moles/Vol] 4.2 mmol/L Normal 3.4-5.0 [facility] Comment on above: Performed By: #### C MP #### [facility] [address] [address] [address] Ronald Montalvo Protein [Mass/Vol] 6.5 g/dL Normal 6.1-8.2 [facility] Comment on above: Performed By: #### C MP #### [facility] [address] [address] [address] Ronald Montalvo Sodium [Moles/Vol] 144 mmol/L Normal 137-145 [facility] Comment on above: Performed By: #### C MP #### [facility] [address] [address] [address] Ronald Montalvo Urea nitrogen [Mass/Vol] 17.0 mg/dL Normal 7.0-17.0 [facility] Comment on above: Performed By: #### C MP #### [facility] [address] [address] [address] Ronald Montalvo Urea nitrogen/Creatinin e [Mass ratio] 16.5 mg/mg Normal [facility] Comment on above: Performed By: #### C MP #### [facility] [address] [address] [address] Ronald Montalvo PROTIMEon 09-02-2021 INR Coag (PPP) [Relative time] 1.06 {INR} Normal [facility] Comment on above: Performed By: #### P TT, PT #### [facility] [address] [address] [address] Ronald Montalvo INR GUIDELINES SEE BELOW Normal [facility] Comment on above: Result Comment: HELADIO RED INR: 2.0 - 3.0 CONDITIONS NOT LISTED BELOW 2.5 - 3.5 FOR PROSTHETIC HEART VALVE REPLACEMENT 2.5 - 3.5 RECURRENT THROMBOSIS Performed By: #### P TT, PT #### [facility] [address] [address] [address] Ronald Montalvo PT Coag (PPP) [Time] 11.4 s Normal 9.0-11.6 [facility] Comment on above: Performed By: #### P TT, PT #### [facility] [address] [place] [address] Dr. Ronald Montalvo PTTon 09-02-2021 aPTT Coag (Bld) [Time] 24.3 s Normal 22.3-36.2 [facility] Comment on above: Performed By: #### P TT, PT #### [facility] [address] [place] [address] Dr. Ronald Montalvo US SINGLE QUAD RT UPPERon US SINGLE QUAD RT UPPER EXAMINATION: US SINGLE QUAD RT UPPER HISTORY: Ascites COMPARISON: CT abdomen pelvis 01/08/2018 TECHNIQUE: Transabdominal evaluation of the right upper quadrant. FINDINGS: LIVER: Small nodular liver suggestive of cirrhosis. Air scattered within the intrahepatic bile ducts, also seen on prior CT study, consistent with an incompetent sphincter of Oddi. Trace amount of free fluid adjacent the left hepatic lobe. PORTAL VEIN: Duplex Doppler demonstrates normal hepatopetal flow pattern with flow velocity averaging 33 cm/s. GALLBLADDER: Cholecystectomy. BILIARY: No abnormal dilation or stones. Common bile duct diameter is within normal limits. PANCREASE: No visible mass, abnormal atrophy, or duct dilation. KIDNEY: No hydronephrosis. No visible mass or stones. Size: 9.0 x 3.9 x 3.4 cm. Mild cortical thinning, 0.9 cm. IMPRESSION: 1. Small nodular liver and trace amount of ascites suggestive of cirrhosis. 2. Prior cholecystectomy. No acute findings. Electronically authenticated by: JAE Neves: 2021-09-02 12:20 Normal [facility] AMMONIAon 09-01-2021 Ammonia (P) [Moles/Vol] 107 umol/L Critically high 10-30 [facility] Comment on above: Result Comment: test repeated Performed By: #### A MM #### [facility] [address] [place] [address] Dr. Ronald Montalvo CARDIAC JACKIE ADMITon 022 CK [Catalytic activity/Vol] 35 U/L Normal 30-135 [facility] Comment on above: Performed By: #### C MADM #### [facility] [address] [place] [address] Dr. Ronald Montalvo CK.MB [Mass/Vol] 0.57 ng/mL Normal <=2.37 [facility] Comment on above: Performed By: #### C SEPIDEHM #### [facility] [address] [place] [address] Dr. Ronald Montalvo HSTROP 5.7 pg/mL Normal 4.0-35.5 [facility] Comment on above: Result Comment: CUT- OFF POINTS HAVE BEEN ESTABLISHED BASED ON THE FOURTH UNIVERSAL DEFINITIONS OF MYOCARDIAL INFARCTION. THE UPPER REFERENCE LIMIT (URL) OF TROPONIN, DEFINED THE 99TH PERCENTILE OF cTnI DISTRIBUTION IN A REFERENCE POPULATION, HAS BEEN CONFIRMED THE DECISION THRESHOLD FOR [place] DIAGNOSIS. Performed By: #### C MADM #### [facility] [address] [place] [address] Dr. Ronald Montalvo TAMI 35.0 ng/mL Normal <=61.5 [facility] Comment on above: Performed By: #### C MADM #### [facility] [address] [place] [address] Dr. Ronald Montalvo CBC W MANUAL DIFFon 09-01-19 22 ANISOCYTOSIS 1+ Normal [facility] Comment on above: Performed By: #### C BCMAN #### [facility] [address] [place] [address] Dr. Ronald Montalvo ATYPICAL LYMPH # Normal [facility] Comment on above: Performed By: #### C BCMAN #### [facility] [address] [place] [address] Dr. Ronald Montalvo ATYPICAL LYMPH % Normal [facility] Comment on above: Performed By: #### C BCMAN #### [facility] [address] [place] [address] Dr. Ronald Montalvo BAND # 0.0 103/ul Normal 0.0-0.3 [facility] Comment on above: Performed By: #### C BCMAN #### [facility] [address] [place] [address] Dr. Ronald Montalvo BAND % 2 % Normal 0-5 [facility] Comment on above: Performed By: #### C BCMAN #### [facility] [address] [place] [address] Dr. Ronald Montalvo BASOM # 0.00 103/ul Normal 0.00-0.10 [facility] Comment on above: Performed By: #### C BCMAN #### [facility] [address] [place] [address] Dr. Ronald Montalvo BASOM % 0.0 % Critically low 0.2-2.0 [facility] Comment on above: Performed By: #### C BCMAN #### [facility] [address] [place] [address] Dr. Ronald Montalvo BLAST # Normal [facility] Comment on above: Performed By: #### C BCSISSY #### [facility] [address] [place] [address] Dr. Ronald Montalvo BLAST % Normal [facility] Comment on above: Performed By: #### C BCSISSY #### [facility] [address] [place] [address] Dr. Ronald Montalvo CORRECTED WBC Normal 4.0-11.0 [facility] Comment on above: Performed By: #### C BCMAN #### [facility] [address] [place] [address] Dr. Ronald Montalvo EOS # 0.02 103/ul Normal 0.00-0.70 [facility] Comment on above: Performed By: #### C BCMAN #### [facility] [address] [place] [address] Dr. Ronald Montalvo EOS% 1.0 % Normal 0.9-7.0 [facility] Comment on above: Performed By: #### C JIL #### [facility] [address] [place] [address] Dr. Ronald Montalvo HCT 27.7 % Critically low 36.0-48.0 [facility] Comment on above: Performed By: #### C JIL #### [facility] [address] [place] [address] Dr. Ronald Montalvo HGB 9.2 g/dl Critically low 12.0-16.0 [facility] Comment on above: Performed By: #### C JIL #### [facility] [address] [place] [address] Dr. Ronald Montalvo LYMPHM # 0.59 103/ul Critically low 1.20-3.80 [facility] Comment on above: Performed By: #### C JIL #### [facility] [address] [place] [address] Dr. Ronald Montalvo LYMPHM% 37.0 % Normal 20.5-60.0 [facility] Comment on above: Performed By: #### C JIL #### [facility] [address] [place] [address] Dr. Ronald Montalvo MACROCYTOSIS 2+ Normal [facility] Comment on above: Performed By: #### C JIL #### [facility] [address] [place] [address] Dr. Ronald Montalvo MCH 38.8 pg Critically high 26.7-34.0 [facility] Comment on above: Performed By: #### C JIL #### [facility] [address] [place] [address] Dr. Ronald Montalvo MCHC 33.2 g/dl Normal 29.9-35.2 [facility] Comment on above: Performed By: #### C BCSISSY #### [facility] [address] [place] [address] Dr. Ronald Montalvo MCV 116.9 fL Critically high 81.0-99.0 [facility] Comment on above: Performed By: #### C JIL #### [facility] [address] [place] [address] Dr. Ronald Montalvo METAMYELOCYTE # Normal [facility] Comment on above: Performed By: #### C JIL #### [facility] [address] [place] [address] Dr. Ronald Montalvo METAMYELOCYTE % Normal [facility] Comment on above: Performed By: #### C JIL #### [facility] [address] [place] [address] Dr. Ronald Montalvo MONOM# 0.13 103/ul Critically low 0.30-0.80 [facility] Comment on above: Performed By: #### C JIL #### [facility] [address] [place] [address] Dr. Ronald Montalvo MONOM% 8.0 % Normal 1.7-12.0 [facility] Comment on above: Performed By: #### Wilda LEY #### [facility] [address] [place] [address] Dr. Ronald Monatlvo MPV 10.6 fL Normal 9.5-13.5 [facility] Comment on above: Performed By: #### Wilda LEY #### [facility] [address] [place] [address] Dr. Ronald Montalvo MYELOCYTE # Normal [facility] Comment on above: Performed By: #### Wilda LEY #### [facility] [address] [place] [address] Dr. Ronald Montalvo MYELOCYTE % Normal [facility] Comment on above: Performed By: #### Wilda LEY #### [facility] [address] [place] [address] Dr. Ronald Montalvo NRBC Normal [facility] Comment on above: Performed By: #### C JIL #### [facility] [address] [place] [address] Dr. Ronald Montalvo PLT 43 103/ul Critically low 150-450 [facility] Comment on above: Performed By: #### C JIL #### [facility] [address] [place] [address] Dr. Ronald Montalvo RBC 2.37 106/ul Critically low 4.20-5.40 [facility] Comment on above: Performed By: #### C JIL #### [facility] [address] [address] [address] Ronald Montalvo RDW 15.2 % Critically high 11.0-15.0 [facility] Comment on above: Performed By: #### C JIL #### [facility] [address] [address] [address] Ronald Montalvo SEG # 0.83 103/ul Critically low 1.40-6.50 [facility] Comment on above: Performed By: #### C JIL #### [facility] [address] [address] [address] Ronald Montalvo SEG % 52.0 % Normal 43.0-75.0 [facility] Comment on above: Performed By: #### Wilda LEY #### [facility] [address] [address] [address] Ronald Montalvo WBC 1.6 103/ul Critically low 4.0-11.0 [facility] Comment on above: Performed By: #### Wilda LEY #### [facility] [address] [address] [address] STROKE HEAD WOon 09-01-19 CT STROKE HEAD WO EXAMINATION: CT STRO KE HEAD WO HISTORY: Altered mental status COMPARISON: None. TECHNIQUE: CT examination of the head without IV contrast. Dose reduction techniques were achieved by using automated exposure control and/or adjustment of mA and/or kV according to patient size and/or use of iterative reconstruction technique. FINDINGS: Acute: No hemorrhage, herniation, or hydrocephalus. No evidence of recent infarct. -Artificial intelligence states there is intracranial hemorrhage within the left temporal lobe although this correlates to benign choroid plexus calcification. Brain: Moderate to severe subcortical white matter hypoattenuation with more focal areas for instance within the bilateral frontal lobes. Vessels: No abnormal intravascular density to suggest thrombosis. Bones: No suspicious lesion in the calvarium or skull base. Other: Unremarkable extracranial soft tissues. Bilateral lens surgery. IMPRESSION: 1. No acute intracranial pathology. 2. Sequela of microvascular ischemic change. Electronically authenticated by: TYLER SOLIS Date: 2021-09-01 20:14 Normal [facility] Covid-19 PCR ([facility]on 08-13 SARS-CoV-2 (COVID-19) RNA KORY+probe Ql (Unsp spec) Not detected Normal NOT DETECTED [facility] Comment on above: Result Comment: When diagnostic testing is negative, the possibility of a false negative should be considered in the context of a patient's recent exposures and the presence of clinical signs and symptoms consistent with SARS-CoV-2. This test is not yet approved or cleared by the [place] FDA. When there are no FDA-approved or cleared tests available, and other criteria are met, FDA can make tests available under an emergency access mechanism called an Emergency Use Authorization (EUA). The EUA for this test is supported by the Economy of Health and Human Service's declaration that circumstances exist to justify the emergency use of in vitro diagnostics for the detection and/or diagnosis of the virus that causes COVID-19. This EUA will remain in effect for the duration of the COVID-19 declaration justifying emergency of IVDs, unless it is terminated or revoked by the FDA (after which the test may no longer be used). Performed By: #### C BCMAN #### [facility] [address] [place] [address] Dr. Ronald Montalvo ER URINE PROFILEon 2 Bilirubin Ql (U) Negative Normal NEGATIVE [facility] Comment on above: Performed By: #### C BC #### [facility] [address] [place] [address] Dr. Ronald Montalvo Clarity (U) CLEAR Normal CLEAR [facility] Comment on above: Performed By: #### C BC #### [facility] [address] [place] [address] Dr. Ronald Montalvo Color (U) YELLOW Normal YELLOW [facility] Comment on above: Performed By: #### C BC #### [facility] [address] [place] [address] Dr. Ronald Montalvo ERUAHD A micrscopic examina tion will be performed if indicated. Normal [facility] Comment on above: Performed By: #### C BC #### [facility] [address] [place] [address] Dr. Ronald Montalvo Glucose Ql (U) Negative Normal NEGATIVE [facility] Comment on above: Performed By: #### C BC #### [facility] [address] [address] [address] Ronald Montalvo Hemoglobin Ql (U) Negative Normal NEGATIVE [facility] Comment on above: Performed By: #### C BC #### [facility] [address] [place] [address] Dr. Ronald Montalvo Ketones Ql (U) TRACE Abnormal NEGATIVE [facility] Comment on above: Performed By: #### C BC #### [facility] [address] [place] [address] Dr. Ronald Montalvo LEUKOCYTES Negative Normal NEGATIVE [facility] Comment on above: Performed By: #### C BC #### [facility] [address] [place] [address] Dr. Ronald Montalvo Nitrite Ql (U) Negative Normal NEGATIVE [facility] Comment on above: Performed By: #### C BC #### [facility] [address] [place] [address] Dr. Ronald Montalvo pH (U) 6.0 [pH] Normal 5-9 [facility] Comment on above: Performed By: #### C BC #### [facility] [address] [place] [address] Dr. Ronald Montalvo SPEC GRAVITY 1.025 Normal 1.005-<=1.0 25 [facility] Comment on above: Performed By: #### C BC #### [facility] [address] [place] [address] Dr. Ronald Montalvo UA PROTEIN Negative Normal NEGATIVE/ TRACE [facility] Comment on above: Performed By: #### C BC #### [facility] [address] [place] [address] Dr. Ronald Montalvo UR MICRO IND NOT INDICATED Normal [facility] Comment on above: Performed By: #### C BC #### [facility] [address] [place] [address] Dr. Ronald Montalvo Urobilinogen Qn (U) 1.0 {Yanick'U}/dL Normal 0.2 - 1.0 [facility] Comment on above: Performed By: #### C BC #### [facility] [address] [place] [address] Dr. Ronald Montalvo LACTATE/LACTIC ACIDon 2021 Lactate [Moles/Vol] 1.1 mmol/L Normal 0.7-2.0 [facility] Comment on above: Performed By: #### C BC #### [facility] [address] [place] [address] Dr. Ronald Montalvo PROF 14(COMP METB)on 022 Albumin [Mass/Vol] 3.2 g/dL Critically low 3.5-5.0 [facility] Comment on above: Performed By: #### C MP #### [facility] [address] [place] [address] Dr. Ronald Montalvo Albumin/Globulin [Mass ratio] 0.8 {ratio} Normal [facility] Comment on above: Performed By: #### C MP #### [facility] [address] [place] [address] Dr. Ronald Montalvo ALP [Catalytic activity/Vol] 97 U/L Normal 38-126 [facility] Comment on above: Performed By: #### C MP #### [facility] [address] [place] [address] Dr. Ronald Montalvo ALT [Catalytic activity/Vol] 10 U/L Normal 9-52 [facility] Comment on above: Performed By: #### C MP #### [facility] [address] [place] [address] Dr. Ronald Montalvo Anion gap [Moles/Vol] 10.7 mmol/L Normal [facility] Comment on above: Performed By: #### C MP #### [facility] [address] [place] [address] Dr. Ronald Montalvo AST [Catalytic activity/Vol] 21 U/L Normal 14-36 [facility] Comment on above: Performed By: #### C MP #### [facility] [address] [address] [address] Ronald Montalvo Bilirubin [Mass/Vol] 1.5 mg/dL Critically high 0.2-1.3 [facility] Comment on above: Performed By: #### C MP #### [facility] [address] [address] [address] Ronald Montalvo Calcium [Mass/Vol] 8.9 mg/dL Normal 8.4-10.2 [facility] Comment on above: Performed By: #### C MP #### [facility] [address] [address] [address] Ronald Montalvo Chloride [Moles/Vol] 108 mmol/L Critically high 98-107 [facility] Comment on above: Performed By: #### C MP #### [facility] [address] [address] [address] Ronald Montalvo CO2 [Moles/Vol] 26.8 mmol/L Normal 22.0-30.0 [facility] Comment on above: Performed By: #### C MP #### [facility] [address] [address] [address] Ronald Montalvo Creatinine [Mass/Vol] 1.13 mg/dL Critically high 0.52-1.04 [facility] Comment on above: Performed By: #### C MP #### [facility] [address] [address] [address] Ronald Montalvo EGFR-AF [place] 59 mL/min/1.73m2 Critically low >=60 [facility] Comment on above: Performed By: #### C MP #### [facility] [address] [address] [address] Ronald Montalvo EGFR-NON AF [place] 48 mL/min/1.73m2 Critically low >=60 [facility] Comment on above: Performed By: #### C MP #### [facility] [address] [address] [address] Ronald Montalvo Globulin (S) [Mass/Vol] 4.1 g/dL Normal [facility] Comment on above: Performed By: #### C MP #### [facility] [address] [address] [address] Ronald Montalvo Glucose [Mass/Vol] 131 mg/dL Critically high 74-106 T [facility] Comment on above: Performed By: #### C MP #### [facility] [address] [address] [address] Ronald Montalvo Potassium [Moles/Vol] 4.5 mmol/L Normal 3.4-5.0 [facility] Comment on above: Performed By: #### C MP #### [facility] [address] [address] [address] Ronald Montalvo Protein [Mass/Vol] 7.3 g/dL Normal 6.1-8.2 [facility] Comment on above: Performed By: #### C MP #### [facility] [address] [address] [address] Ronald Montalvo Sodium [Moles/Vol] 141 mmol/L Normal 137-145 [facility] Comment on above: Performed By: #### C MP #### [facility] [address] [address] [address] Ronald Montalvo Urea nitrogen [Mass/Vol] 18.0 mg/dL Critically high 7.0-17.0 [facility] Comment on above: Performed By: #### C MP #### [facility] [address] [address] [address] Ronald Montalvo Urea nitrogen/Creatinin e [Mass ratio] 15.9 mg/mg Normal [facility] Comment on above: Performed By: #### C MP #### [facility] [address] [address] [address] Ronald Montalvo PROTIMEon 09-01-2021 INR Coag (PPP) [Relative time] 1.06 {INR} Normal [facility] Comment on above: Performed By: #### C BC #### [facility] [address] [address] [address] Ronald Montalvo INR GUIDELINES SEE BELOW Normal [facility] Comment on above: Result Comment: HELADIO RED INR: 2.0 - 3.0 CONDITIONS NOT LISTED BELOW 2.5 - 3.5 FOR PROSTHETIC HEART VALVE REPLACEMENT 2.5 - 3.5 RECURRENT THROMBOSIS Performed By: #### C BC #### [facility] [address] [place], [place] [address] Dr. Ronald Montalvo PT Coag (PPP) [Time] 11.4 s Normal 9.0-11.6 [facility] Comment on above: Performed By: #### C BC #### [facility] [address] [place], [place] [address] Dr. Ronald Montalvo PTTon 09-01-2021 aPTT Coag (Bld) [Time] 24.5 s Normal 22.3-36.2 [facility] Comment on above: Performed By: #### C BC #### [facility] [address] [address] [address] Ronald Montalvo Endoscopy Reporton 1 Endoscopy Report MR#: [id number] [facility] Pt. Name: Laney Larios Surgery Date: 06/26/2021 Room #: 0C Date of : 1955 PROCEDURE NOTE ATTENDING: Juliano Lucas M.D. PROCEDURE: EGD. INDICATION: History of esophageal varices. MEDICATION: MAC anesthesia. POSTPROCEDURE DIAGNOSES: Portal hypertensive gastropathy and esophageal varices. NARRATIVE OF PROCEDURE: The patient was brought to the procedure room and identified. Indication risks, and benefits of procedure were explained, risks including bleeding, perforation, medication side effects. The patient understood the procedure and signed the consent form. After adequate anesthesia was achieved, the endoscope was introduced and passed into the esophagus without difficulty. In the distal esophagus, there were 2 columns of minimal esophageal varices. Endoscope was then passed in the stomach and from there to duodenum, which was normal in 2nd portion. The endoscope was then withdrawn back in the stomach, which was inspected in both forward and retroflexed views. There was moderate portal hypertensive gastropathy noted in the stomach, otherwise no ulcers or masses. The endoscope was then withdrawn, patient tolerated the procedure well. ASSESSMENT: Esophageal varices and portal hypertensive gastropathy. RECOMMENDATION: Given that the patient has been banded multiple times, decided not to band her varices for fear of stricture. Would recommend repeat EGD in 1 year and otherwise follow up in Hepatology Clinic. ESTIMATED BLOOD LOSS: Zero. SPECIMEN: Zero. Electronically Signed by: Juliano Lucas M.D. 06/27/2021 08:05 A Juliano Lucas M.D. Date Dict: 06/26/2021/02:42 P/Juliano Lucas M.D. Date Trans: 06/27/2021 04:11 A/mmo [id number] Normal [facility] POC GLUCOSE LABon 06-26-2021 Glucose [Mass/Vol] 106 mg/dL High 70-100 [facility] Comment on above: Performed By: #### [id number] #### [facility] [address] [facility] [place] Endoscopy Reporton Endoscopy Report MR#: [id number] [facility] Pt. Name: Laney Larios Surgery Date: 03/24/2021 Room #: 0 Date of : 1955 PROCEDURE NOTE ATTENDING: Juliano Lucas M.D. PROCEDURE: Upper endoscopy. ASSISTING PHYSICIAN: Marcy Le DO. INDICATIONS: Variceal screening. ANESTHESIA: MAC. PROCEDURE IN DETAIL: Informed consent was obtained from the patient prior to the procedure. All risks and benefits were discussed in detail with the patient. The patient was agreeable to this. The patient was brought back to the endoscopy suite, an IV was started. Appropriate monitoring devices were placed. The patient was then sedated. Once the patient was appropriately sedated, the patient was placed in the left lateral decubitus position and an endoscope was advanced from the mouth into the esophagus and stomach to the 2nd portion of the duodenum. Retroflexed view in the stomach was obtained prior to the end of the procedure. The patient tolerated the procedure well. COMPLICATIONS: There were no immediate complications. FINDINGS: 1. Esophageal varices, 4 columns, 2 bands placed with complete eradication. 2. Hiatal hernia. 3. Portal hypertensive gastropathy, mild. 4. Benign-appearing duodenal polyps. PLAN: 1. Continue current medications including Protonix. 2. Repeat EGD in 2-4 weeks for serial banding. 3. Soft diet today only. Electronically Signed by: Juliano Lucas M.D. 03/25/2021 08:26 A Juliano Lucas M.D. I was present for the entire procedure from insertion of the scope until it was withdrawn. Date Dict: 03/24/2021/03:32 P/Marcy Le, DO Date Trans: 03/25/2021 06:50 A/mmo [id number] Normal [facility] Alcohol, Medicalon 8 Ethanol mg/dL Invalid Interpretation Code <3.00 mg/dL [facility] Comment on above: Alcohol cutoff: <3.0 0 mg/dL = None Detected Ammoniaon 01-08-2018 Ammonia 135 micromol/L High 12 - 47 [facility] Blood Gas, Venouson 01-09-20 18 Base Excess, Homar 0.0 1 Invalid Interpretation Code -2.0 - 2.0 [facility] Bicarbonate (HCO3) 24.3 mmol/L Invalid Interpretation Code 24 - 28 mmol/L [facility] CO2 40.2 mm Hg Low 41.0 - 51.0 [facility] Hematocrit (HCT) 29.5 % Low 36 - 46 % [facility] Hemoglobin mass conc (Bld) 9.5 g/dL Low 12 - 16 g/dL [facility] Interpretation and review of laboratory results Abnormal Invalid Interpretation Code [facility] O2 saturation 47.2 % Invalid Interpretation Code [facility] pH, Venous 7.40 1 Invalid Interpretation Code 7.32 - 7.42 [facility] pO2, Homar 28 mm Hg Invalid Interpretation Code 25 - 40 [facility] CBC Auto Differentialon 12-12 Basophils Auto #/vol (Bld) 0.03 K/mcL Invalid Interpretation Code 0.00 - 0.30 [facility] Basophils/100 WBC Auto (Bld) 0.6 % Invalid Interpretation Code [facility] Eosinophils 0.13 K/mcL Invalid Interpretation Code 0.00 - 0.50 [facility] Eosinophils/100 leukocytes 2.8 % Invalid Interpretation Code [facility] Erythrocyte distribution width Auto Entitic volume (RBC) 14.9 % High 11.6 - 14.8 % [facility] Erythrocytes (RBC) 2.72 M/mcL Low 4.00 - 5.20 [facility] AB Hematocrit (HCT) 27.9 % Low 36 - 46 % [facility] Hemoglobin mass conc (Bld) 9.4 g/dL Low 12 - 16 g/dL [facility] Immature granulocytes #/vol (Bld) 0.01 K/mcL Invalid Interpretation Code 0.00 - 0.30 [facility] Immature granulocytes/100 WBC (Bld) 0.20 % Invalid Interpretation Code [facility] Comment on above: The IG parameter is the percentage of metamyelocytes, myelocytes, and promyelocytes. Lymphocytes 1.72 K/mcL Invalid Interpretation Code 0.90 - 4.00 [facility] Lymphocytes/100 leukocytes 37.1 % Invalid Interpretation Code [facility] MCH 34.6 pg High 26 - 34 pg [facility] MCHC mass conc (RBC) 33.7 g/dL Invalid Interpretation Code 31 - 37 g/dL [facility] MCV 102.6 fL High 80 - 100 fL [facility] Monocytes 0.35 K/mcL Invalid Interpretation Code 0.30 - 0.90 [facility] Monocytes/100 leukocytes 7.6 % Invalid Interpretation Code [facility] Neutrophils 2.39 K/mcL Invalid Interpretation Code 1.70 - 7.00 [facility] Neutrophils/100 WBC Auto (Bld) 51.7 % Invalid Interpretation Code [facility] Nucleated erythrocytes 0.00 K/mcL Invalid Interpretation Code 0.00 - 0.00 [facility] Nucleated erythrocytes/100 erythrocytes 0.0 % Invalid Interpretation Code [facility] Platelet mean volume (PMV) 9.5 fL Invalid Interpretation Code 9 - 15.5 fL [facility] Platelets 142 K/mcL Low 150 - 400 [facility] WBC (Leukocytes) 4.63 K/mcL Invalid Interpretation Code 4.50 - 11.00 [facility] CBC w/ Diffon 01-08-2018 Creatinine The following orders were created for panel order CBC w/ Diff. Procedure Abnormality Status --------- ------ CBC Auto Differential[[id number]] Abnormal Final result Please view results for these tests on the individual orders. Invalid Interpretation Code [facility] CT ABDOMEN PELVIS WITH IV CO NTRAST ONLYon 01-08-2018 CT ABDOMEN PELVIS WITH IV CONTRAST ONLY EXAMINATION:CT ABDOMEN PELVIS WITH IV CONTRAST ONLYHISTORY:ORDERING SYSTEM PROVIDED HISTORY: abdominal pain, TECHNOLOGIST PROVIDED HISTORY: Reason for exam: abd painIllness/OtherEncounter Type: InitialAdditional signs and symptoms: naORDERING SYSTEM PROVIDED DIAGNOSIS CODES:R41.82 Altered mental status, unspecified altered mental status typeN39.0 Acute UTIK72.90 Hepatic encephalopathy (HCC)E87.6 HypokalemiaCOMPARISON:CT of the abdomen and pelvis from [facility] 05/02/2015.TECHNIQUE:CT examination of the abdomen and pelvis following administration of 75 mL Isovue-370 intravenous contrast. Coronal and sagittal reformations are performed.Dose reduction techniques were achieved by using automated exposure control and/or adjustment of mA and/or kV according to patient size and/or use of iterative reconstruction technique.FINDINGS:Dependent changes within the lung bases. Lung bases are otherwise clear. Coronary artery atherosclerotic calcifications are noted. Patulous gas-filled distal esophagus.Abdomen:Nodular external contour of the liver suggesting underlying cirrhosis. Pneumobilia, as before. Prior cholecystectomy. There is a 1.5 cm hypoattenuating segment 8 hepatic lesion, unchanged compared to the prior examination from 05/02/2015, likely a cyst or hemangioma. Splenomegaly with spleen measuring 13.2 cm in craniocaudal dimension, not significantly changed compared to the prior examination. The adrenal glands and pancreas are normal in appearance. Similar appearance of enlarged gastrohepatic and periportal lymph nodes which may be related to underlying cirrhosis. Perihepatic and perisplenic ascites is present, as before. Symmetric enhancement of the kidneys without evidence for hydronephrosis or stone. 6 mm left midpole renal cortical hypodensity is too small to characterize but statistically most likely represents a cyst.Pelvis:No ureteral or bladder stone. Prior hysterectomy. Aortoiliac atherosclerotic calcifications are present. No pelvic lymphadenopathy. There is thickening of the wall of the ascending and fhwxdgyc-ws-nju transverse colon which may be related to underlying portal colopathy or possibly an infectious/inflammatory colitis. There is prominent mucosal hyperemia throughout the small bowel which contains a prominent amount of fluid within its midportion without evidence for small-bowel dilatation or obstruction. Mild infiltrative changes of the peritoneal fat may be related to the presence of ascites. No free air. 4 mm of anterolisthesis of L5 on S1. Multilevel Schmorl nodes are present. Bilateral L5 pars defects.IMPRESSION:1. 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 Pneumobilia and prior cholecystectomy, as before.2. There is thickening of the wall of the ascending and gyoatznl-el-bdl transverse colon which may be related to underlying portal colopathy or in the appropriate clinical setting, infectious or inflammatory colitis. No evidence for bowel obstruction. There is a prominent amount of fluid within nondilated mid small bowel without evidence for bowel obstruction. No free air.3. Prior fixation of the left femoral neck. Prior hysterectomy. Bilateral L5 pars defects with grade 1 anterolisthesis of L5 on S1.[facility] ([place], [place])station ID: [id number] by: SHADE MANCERA on [facility] Jan 08, 2018 1:03:05 AM EDTTranscribed by: LON WILD on [facility] Jan 08, 2018 1:14:48 AM EDTFinalized by: SHADE MANCERA on [facility] Jan 08, 2018 3:58:36 AM EDT Normal [facility] Comment on above: Order Comment: Reaso n for exam?:abd painInjury/Trauma or Illness?:Illness/OtherHow long have you had these symptoms (acute/chronic)?:AcuteType of Exam?:InitialAdditional signs and symptoms?:na CT Abdomen Pelvis With IV Co ntrast Onlyon 01-08-2018 CT Abdomen Pelvis With IV Contrast Only EXAMINATION: CT ABDOMEN PELVIS WITH IV CONTRAST ONLY HISTORY: ORDERING SYSTEM PROVIDED HISTORY: abdominal pain, TECHNOLOGIST PROVIDED HISTORY: Reason for exam: abd pain Illness/Other Encounter Type: Initial Additional signs and symptoms: na ORDERING SYSTEM PROVIDED DIAGNOSIS CODES: R41.82 Altered mental status, unspecified altered mental status type N39.0 Acute UTI K72.90 Hepatic encephalopathy (HCC) E87.6 Hypokalemia COMPARISON: CT of the abdomen and pelvis from [facility] 05/02/2015. TECHNIQUE: CT examination of the abdomen and pelvis following administration of 75 mL Isovue-370 intravenous contrast. Coronal and sagittal reformations are performed. Dose reduction techniques were achieved by using automated exposure control and/or adjustment of mA and/or kV according to patient size and/or use of iterative reconstruction technique. FINDINGS: Dependent changes within the lung bases. Lung bases are otherwise clear. Coronary artery atherosclerotic calcifications are noted. Patulous gas-filled distal esophagus. Abdomen: Nodular external contour of the liver suggesting underlying cirrhosis. Pneumobilia, as before. Prior cholecystectomy. There is a 1.5 cm hypoattenuating segment 8 hepatic lesion, unchanged compared to the prior examination from 05/02/2015, likely a cyst or hemangioma. Splenomegaly with spleen measuring 13.2 cm in craniocaudal dimension, not significantly changed compared to the prior examination. The adrenal glands and pancreas are normal in appearance. Similar appearance of enlarged gastrohepatic and periportal lymph nodes which may be related to underlying cirrhosis. Perihepatic and perisplenic ascites is present, as before. Symmetric enhancement of the kidneys without evidence for hydronephrosis or stone. 6 mm left midpole renal cortical hypodensity is too small to characterize but statistically most likely represents a cyst. Pelvis: No ureteral or bladder stone. Prior hysterectomy. Aortoiliac atherosclerotic calcifications are present. No pelvic lymphadenopathy. There is thickening of the wall of the ascending and uqmpcztm-tq-flm transverse colon which may be related to underlying portal colopathy or possibly an infectious/inflammatory colitis. There is prominent mucosal hyperemia throughout the small bowel which contains a prominent amount of fluid within its midportion without evidence for small-bowel dilatation or obstruction. Mild infiltrative changes of the peritoneal fat may be related to the presence of ascites. No free air. 4 mm of anterolisthesis of L5 on S1. Multilevel Schmorl nodes are present. Bilateral L5 pars defects. Invalid Interpretation Code [facility] CT Abdomen Pelvis With IV Contrast Only 1. 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 Pneumobilia and prior cholecystectomy, as before. 2. There is thickening of the wall of the ascending and rlkitxdq-zg-ohu transverse colon which may be related to underlying portal colopathy or in the appropriate clinical setting, infectious or inflammatory colitis. No evidence for bowel obstruction. There is a prominent amount of fluid within nondilated mid small bowel without evidence for bowel obstruction. No free air. 3. Prior fixation of the left femoral neck. Prior hysterectomy. Bilateral L5 pars defects with grade 1 anterolisthesis of L5 on S1. [facility]/vrs Workstation ID: [id number] Invalid Interpretation Code Answer.To [facility] CT Abdomen Pelvis With IV Contrast Only Interface, Rad In cottonTracksq - 01/08/2018 4:01 AM EDT EXAMINATION: CT ABDOMEN PELVIS WITH IV CONTRAST ONLY HISTORY: ORDERING SYSTEM PROVIDED HISTORY: abdominal pain, TECHNOLOGIST PROVIDED HISTORY: Reason for exam: abd pain Illness/Other Encounter Type: Initial Additional signs and symptoms: na ORDERING SYSTEM PROVIDED DIAGNOSIS CODES: R41.82 Altered mental status, unspecified altered mental status type N39.0 Acute UTI K72.90 Hepatic encephalopathy (HCC) E87.6 Hypokalemia COMPARISON: CT of the abdomen and pelvis from [facility] 05/02/2015. TECHNIQUE: CT examination of the abdomen and pelvis following administration of 75 mL Isovue-370 intravenous contrast. Coronal and sagittal reformations are performed. Dose reduction techniques were achieved by using automated exposure control and/or adjustment of mA and/or kV according to patient size and/or use of iterative reconstruction technique. FINDINGS: Dependent changes within the lung bases. Lung bases are otherwise clear. Coronary artery atherosclerotic calcifications are noted. Patulous gas-filled distal esophagus. Abdomen: Nodular external contour of the liver suggesting underlying cirrhosis. Pneumobilia, as before. Prior cholecystectomy. There is a 1.5 cm hypoattenuating segment 8 hepatic lesion, unchanged compared to the prior examination from 05/02/2015, likely a cyst or hemangioma. Splenomegaly with spleen measuring 13.2 cm in craniocaudal dimension, not significantly changed compared to the prior examination. The adrenal glands and pancreas are normal in appearance. Similar appearance of enlarged gastrohepatic and periportal lymph nodes which may be related to underlying cirrhosis. Perihepatic and perisplenic ascites is present, as before. Symmetric enhancement of the kidneys without evidence for hydronephrosis or stone. 6 mm left midpole renal cortical hypodensity is too small to characterize but statistically most likely represents a cyst. Pelvis: No ureteral or bladder stone. Prior hysterectomy. Aortoiliac atherosclerotic calcifications are present. No pelvic lymphadenopathy. There is thickening of the wall of the ascending and dneijcrv-ih-wet transverse colon which may be related to underlying portal colopathy or possibly an infectious/inflammatory colitis. There is prominent mucosal hyperemia throughout the small bowel which contains a prominent amount of fluid within its midportion without evidence for small-bowel dilatation or obstruction. Mild infiltrative changes of the peritoneal fat may be related to the presence of ascites. No free air. 4 mm of anterolisthesis of L5 on S1. Multilevel Schmorl nodes are present. Bilateral L5 pars defects. IMPRESSION: 1. 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 Pneumobilia and prior cholecystectomy, as before. 2. There is thickening of the wall of the ascending and chbcplxl-ip-zcl transverse colon which may be related to underlying portal colopathy or in the appropriate clinical setting, infectious or inflammatory colitis. No evidence for bowel obstruction. There is a prominent amount of fluid within nondilated mid small bowel without evidence for bowel obstruction. No free air. 3. Prior fixation of the left femoral neck. Prior hysterectomy. Bilateral L5 pars defects with grade 1 anterolisthesis of L5 on S1. [facility]/[employer] Workstation ID: [id number] Invalid Interpretation Code Answer.To [facility] CT HEAD OR BRAIN WITHOUT CON TRASTon 01-08-2018 CT HEAD OR BRAIN WITHOUT CONTRAST EXAMINATION:CT BRAIN WITHOUT CONTRAST, 01/07/2018 :HISTORY:hallucinationsCOMPA RISON:Brain CT scan, 08/03/2017.TECHNIQUE:Nonenha nced axial CT imaging of the brain was performed from the skull base to the vertex.Dose reduction techniques were achieved by using automated exposure control and/or adjustment of mA and/or kV according to patient size and/or use of iterative reconstruction technique.FINDINGS:Age-relat ed atrophy is noted without intracranial hemorrhage, edema, mass effect or midline shift. There are nonspecific mild patchy white matter lucencies favoring chronic small-vessel white matter ischemia, unchanged. The ventricles and extra-axial CSF spaces appear within normal limits. The calvarium and imaged facial bones appear intact.There is mild left sphenoid mucosal thickening. The remaining paranasal sinuses are otherwise clear.There are bilateral mastoid air cells, right greater than left. There is cerumen in the right external auditory canal.IMPRESSION:1. No acute intracranial process.2. Age-related atrophy with stable mild chronic small-vessel white matter ischemia.3. Mild chronic-appearing left sphenoid sinusitis.4. Bilateral mastoid effusions, moderate on the right and small on the left, not significantly changed.Workstation ID: [id number] by: XANDER SUAZO on WedJan 07, 2018 11:55:50 PM EDTTranscribed by: XANDER SUAZO on WedJan 07, 2018 11:55:50 PM EDTFinalized by: XANDER SUAZO on WedJan 07, 2018 11:55:50 PM EDT Normal [facility] Comment on above: Order Comment: Reaso n for exam?:general weakness with hallucinationsInjury/Trauma or Illness?:Illness/OtherHow long have you had these symptoms (acute/chronic)?:AcuteType of Exam?:InitialAdditional signs and symptoms?:no hx CT Head Or Brain Without Con traston 01-08-2018 CT Head Or Brain Without Contrast 1. No acute intracranial process. 2. Age-related atrophy with stable mild chronic small-vessel white matter ischemia. 3. Mild chronic-appearing left sphenoid sinusitis. 4. Bilateral mastoid effusions, moderate on the right and small on the left, not significantly changed. Workstation ID: [id number] Invalid Interpretation Code [facility] [employer] [facility] CT Head Or Brain Without Contrast EXAMINATION: CT BRAIN WITHOUT CONTRAST, 01/07/2018 : HISTORY: hallucinations COMPARISON: Brain CT scan, 08/03/2017. TECHNIQUE: Nonenhanced axial CT imaging of the brain was performed from the skull base to the vertex. Dose reduction techniques were achieved by using automated exposure control and/or adjustment of mA and/or kV according to patient size and/or use of iterative reconstruction technique. FINDINGS: Age-related atrophy is noted without intracranial hemorrhage, edema, mass effect or midline shift. There are nonspecific mild patchy white matter lucencies favoring chronic small-vessel white matter ischemia, unchanged. The ventricles and extra-axial CSF spaces appear within normal limits. The calvarium and imaged facial bones appear intact. There is mild left sphenoid mucosal thickening. The remaining paranasal sinuses are otherwise clear. There are bilateral mastoid air cells, right greater than left. There is cerumen in the right external auditory canal. Invalid Interpretation Code [facility] CT Head Or Brain Without Contrast Interface, Rad In Familonet Speechq - 01/07/2018 11:58 PM EDT EXAMINATION: CT BRAIN WITHOUT CONTRAST, 01/07/2018 : HISTORY: hallucinations COMPARISON: Brain CT scan, 08/03/2017. TECHNIQUE: Nonenhanced axial CT imaging of the brain was performed from the skull base to the vertex. Dose reduction techniques were achieved by using automated exposure control and/or adjustment of mA and/or kV according to patient size and/or use of iterative reconstruction technique. FINDINGS: Age-related atrophy is noted without intracranial hemorrhage, edema, mass effect or midline shift. There are nonspecific mild patchy white matter lucencies favoring chronic small-vessel white matter ischemia, unchanged. The ventricles and extra-axial CSF spaces appear within normal limits. The calvarium and imaged facial bones appear intact. There is mild left sphenoid mucosal thickening. The remaining paranasal sinuses are otherwise clear. There are bilateral mastoid air cells, right greater than left. There is cerumen in the right external auditory canal. IMPRESSION: 1. No acute intracranial process. 2. Age-related atrophy with stable mild chronic small-vessel white matter ischemia. 3. Mild chronic-appearing left sphenoid sinusitis. 4. Bilateral mastoid effusions, moderate on the right and small on the left, not significantly changed. Workstation ID: [id number] Invalid Interpretation Code Answer.To [facility] Chem 7on 01-08-2018 Anion gap 11 mmol/L Invalid Interpretation Code 10 - 20 mmol/L [facility] Bicarbonate (HCO3) 23 mmol/L Invalid Interpretation Code 21 - 32 mmol/L [facility] BUN/Creatinine Ratio 22.1 mg/mg High 10.0 - 20.0 [facility] Chloride 114 mmol/L High 98 - 108 mmol/L [facility] Creatinine 0.86 mg/dL Invalid Interpretation Code 0.6 - 1.2 mg/dL [facility] eGFR (non-black) 73 mL/min/{1.73_m2} Invalid Interpretation Code >=60 [facility] eGFR (non-black) The eGFR should be u sed for monitoring renal function only and not for medication dosing. Invalid Interpretation Code [facility] Glucose mass conc 104 mg/dL High 65 - 99 mg/dL [facility] Interpretation and review of laboratory results Abnormal Invalid Interpretation Code [facility] Potassium molar conc 3.0 mmol/L Low 3.5 - 5.1 mmol/L [facility] Sodium 145 mmol/L Invalid Interpretation Code 135 - 145 mmol/L [facility] Urea nitrogen 19 mg/dL Invalid Interpretation Code 8 - 25 mg/dL [facility] EKG 12-leadon 01-08-2018 Interpretation and review of laboratory results Abnormal Invalid Interpretation Code [facility] EKG 12-lead Joanne Beasley 01/08/2018 1:20 AM EKG 12-lead Date/Time: 01/08/2018 12:11 AM Performed by: DEL CHRISTIANSON Authorized by: DEL CHRISTIANSON Interpreted by ED attending physician Rhythm: sinus rhythm BPM: 77 Conduction: conduction normal ST Segments: ST segments normal T Waves: T waves normal Clinical impression: abnormal ECG Invalid Interpretation Code [facility] Hepatic Function Panelon Alanine aminotransferase (ALT) 18 U/L Invalid Interpretation Code 14 - 65 U/L [facility] Albumin 1.7 g/dL Low 3.2 - 5.2 g/dL [facility] Alkaline phosphatase (ALP) 299 U/L High 40 - 150 U/L [facility] Aspartate aminotransferase (AST) 31 U/L Invalid Interpretation Code 0 - 45 U/L [facility] Bilirubin (conjugated) 1.3 mg/dL High 0 - 0.4 mg/dL [facility] Bilirubin (total) 2.2 mg/dL High 0 - 1.3 mg/dL [facility] Protein 9.0 g/dL High 6 - 8 g/dL [facility] Lavender Topon 01-08-2018 Extra Tube Hold for add-ons. Invalid Interpretation Code [facility] Comment on above: Auto resulted. POC Glucoseon 01-08-2018 Glucose mass conc 105 mg/dL High 65 - 99 mg/dL [facility] Interpretation and review of laboratory results Abnormal Invalid Interpretation Code [facility] PT/INRon 01-08-2018 INR Coag RelTime (Bld) During the induction phase of oral anticoagulation, the INR may not reflect the anticoagulation status of the patient. Therapeutic ranges for INR's are: Most clinical situations: INR 2.0-3.0 Mechanical Prosthetic Valve: INR 2.5-3.5 Critical: INR >5.0 Invalid Interpretation Code [facility] INR Coag RelTime (PPP) 1.6 {INR} High 0.8 - 1.1 [facility] Prothrombin time (PT) Coag time (PPP) 19.1 s High 11.8 - 14.3 [facility] Drawon 01-08-2018 Creatinine The following orders were created for panel order [facility] Draw. Procedure Abnormality Status --------- ------ Lavender Top[[id number]] Final result Mint Green Top[[id number]] Final result Gold Top[[id number]] Final result Light Blue Top[[id number]] Final result Please view results for these tests on the individual orders. Invalid Interpretation Code [facility] Troponinon 01-08-2018 Troponin I.cardiac mass conc ng/mL Invalid Interpretation Code <=45 ng/L [facility] Comment on above: The 2014 AHA/ACC Gu ideline for the Management of Patients With Hqr-CX-Kpphbbrfk Acute Coronary Syndromes defines myocardial infarction ([place]) as follows: 1. For troponin-I value above the 45 ng/L (99th percentile) cut-off, a rise or fall greater than or equal to 20% from the initial value is indicative of [place], in conjunction with the appropriate clinical symptoms. 2. For troponin-I value less than 45ng/L an absolute value change greater than or equal to 8ng/L is indicative of myocardial necrosis. Urinalysison 01-08-2018 Bilirubin Ql (U) Positive Abnormal Negative [facility] Comment on above: False positive urine bilirubins can occur in the setting of a large amount of hemoglobin and secondary to medications including anti-inflammatory agents, rifampin, and pyridium. Blood, Urine Large Abnormal Negative [facility] Interpretation and review of laboratory results Abnormal Invalid Interpretation Code [facility] Mucus, Urine Many Abnormal None Seen, Rare /lpf [facility] Nitrite, Urine Negative Invalid Interpretation Code Negative [facility] Urine, bacteria in sediment Few Abnormal None Seen /hpf [facility] Urine, clarity Cloudy Abnormal Clear [facility] Urine, color Yellow Invalid Interpretation Code Colorless, Yellow [facility] Urine, erythrocytes 4 /hpf High 0 - 3 [facility] Urine, glucose presence 50 Abnormal Negative mg/dL [facility] Urine, ketones presence Negative Invalid Interpretation Code Negative mg/dL [facility] Urine, leukocyte esterase presence Trace Abnormal Negative [facility] Urine, pH 7.0 [pH] Invalid Interpretation Code 5.0 - 7.0 [facility] Urine, protein 30 Abnormal Negative mg/dL [facility] Comment on above: False positive resul ts may occur in urines with large amounts of hemoglobin, pH greater than 8.0, contrast medium, or disinfectants including ammonium compounds. Urine, specific gravity 1.020 1 Invalid Interpretation Code 1.005 - 1.025 [facility] Urine, urobilinogen >=4.0 Abnormal <2.0 mg/dL [facility] WBCs, Urine 3 /hpf Invalid Interpretation Code 0 - 5 [facility] Urinalysis Microscopic examinat ion is performed on all urinalysis samples and only positive findings are reported. The test for blood on the chemical analytic portion of urinalysis may also be positive due to hemoglobinuria and myoglobinuria and if red blood cells are present they are quantified by microscopic examination. Invalid Interpretation Code [facility] Urine Drug Screenon 01-09-20 18 Amphetamine Screen, Urine None Detected Invalid Interpretation Code None Detected [facility] Comment on above: Urine Amphetamine Cu toff: < 1000 ng/mL = None Detected Cocaine, Screen Urine None Detected Invalid Interpretation Code None Detected [facility] Comment on above: Urine Cocaine Cutoff : < 300 ng/mL = None Detected Methadone Screen, Urine None Detected Invalid Interpretation Code None Detected [facility] Comment on above: Urine Methadone Cuto ff: < 300 ng/mL = None Detected Opiate Screen, Urine None Detected Invalid Interpretation Code None Detected [facility] Comment on above: Urine Opiates Cutoff : < 300 ng/mL = None Detected Oxycodone Screen, Urine None Detected Invalid Interpretation Code None Detected [facility] Comment on above: Urine Oxycodone Cuto ff: < 100 ng/mL = None Detected Urine, barbiturates presence None Detected Invalid Interpretation Code None Detected [facility] Comment on above: Urine Barbiturates C utoff: < 200 ng/mL = None Detected Urine, benzodiazepines presence None Detected Invalid Interpretation Code None Detected [facility] Comment on above: Urine Benzodiazepine Cutoff: < 200 ng/mL = None Detected Urine, cannabinoids presence None Detected Invalid Interpretation Code None Detected [facility] Comment on above: Urine Cannabinoids C utoff: < 50 ng/mL = None Detected Urine Drug Screen Screen results shoul d be used for treatment purposes only. Invalid Interpretation Code [facility] Interpretation and review of laboratory results Normal Invalid Interpretation Code [facility] VBG (Obtain Venous Blood Gas es)on 01-08-2018 VBG (Obtain Venous Blood Gases) Invalid Interpretation Code [facility] XR CHEST PA/APon 01-08-2018 XR CHEST PA/AP EXAMINATION:XR CHEST PA/APHISTORY:Weakness and chest pain.TECHNIQUE:XR CHEST PA/APCOMPARISON:04/10/2016.F INDINGS:Lungs are hypoinflated. No large pneumothorax or pleural effusion is visualized. No focal airspace consolidation is visualized. Right-sided discoid atelectasis noted. Unchanged cardiomediastinal silhouette and osseous structures noted. Probable cholecystectomy clips noted.IMPRESSION:No acute pulmonary abnormality is visualized.[employer]Workstation ID: [id number] by: NOEMY PÉREZ on WedJan 07, 2018 11:13:30 PM EDTTranscribed by: VIMAL TABARES on WedJan 07, 2018 11:17:27 PM EDTFinalized by: NOEMY PÉREZ on WedJan 08, 2018 3:41:50 AM EDT Normal [facility] Comment on above: Order Comment: Reaso n for exam?:chest painInjury/Trauma or Illness?:Illness/OtherHow long have you had these symptoms (acute/chronic)?:AcuteHistory of cancer?:?Surgeries, chemotherapy, or radiation?:cholecystectomyType of Exam?:InitialAdditional signs and symptoms?:sob XR Chest 1 Viewon 01-08-2018 XR Chest 1 View Interface, Rad In Fu ji Speechq - 01/08/2018 3:44 AM EDT EXAMINATION: XR CHEST PA/AP HISTORY: Weakness and chest pain. TECHNIQUE: XR CHEST PA/AP COMPARISON: 04/10/2016. FINDINGS: Lungs are hypoinflated. No large pneumothorax or pleural effusion is visualized. No focal airspace consolidation is visualized. Right-sided discoid atelectasis noted. Unchanged cardiomediastinal silhouette and osseous structures noted. Probable cholecystectomy clips noted. IMPRESSION: No acute pulmonary abnormality is visualized. /[employer] Workstation ID: [id number] Invalid Interpretation Code Answer.To [facility] XR Chest 1 View No acute pulmonary abnormality is visualized. /[employer] Workstation ID: [id number] Invalid Interpretation Code Answer.To [facility] XR Chest 1 View EXAMINATION: XR CHES T PA/AP HISTORY: Weakness and chest pain. TECHNIQUE: XR CHEST PA/AP COMPARISON: 04/10/2016. FINDINGS: Lungs are hypoinflated. No large pneumothorax or pleural effusion is visualized. No focal airspace consolidation is visualized. Right-sided discoid atelectasis noted. Unchanged cardiomediastinal silhouette and osseous structures noted. Probable cholecystectomy clips noted. Invalid Interpretation Code Answer.To [facility] XR WRIST LEFT 3+ VIEWS (BARB MAE)on 08-25-2017 XR WRIST LEFT 3+ VIEWS (STANDARD) EXAMINATION:XR WRIST LEFT 3+ VIEWS (STANDARD)HISTORY:ORDERING SYSTEM PROVIDED HISTORY: POST OP, TECHNOLOGIST PROVIDED HISTORY: Reason for exam: fxInjury/TraumaCancer History: ?Surgery, RadiationHistory: cholecystectomyEncounter Type: Subsequent/Follow-upMechanis m of injury: contustionORDERING SYSTEM PROVIDED DIAGNOSIS CODES:S52.502A Closed fracture distal radius and ulna, left, initial [id number] Closed fracture distal radius and ulna, left, initial encounterCOMPARISON:08/03/19 18TECHNIQUE:AP, oblique and lateral views for total of 5 images.FINDINGS:In the interim, the patient has had no ORIF. There is an anterior plate and threaded screws stabilizing a radial metaphyseal fracture. Alignment is anatomic.There is residual fracture lucency which is nondisplaced involving the distal ulnar shaft.Splint is seen anteriorly.IMPRESSION:Satisf actory ORIF with plate and screw fixation of the distal radius. Nondisplaced fibular fracture seen. Postoperative positioning and alignment is anatomic and no complication is appreciated.[facility]/[employer] on ID: [id number] by: KALA BREWSTER on WedAug 25, 2017 3:09:11 PM ESTTranscribed by: DAPHNEY RODRIGEZ on WedAug 25, 2017 3:57:29 PM ESTFinalized by: KALA BREWSTER on WedAug 25, 2017 4:03:47 PM EST Normal [facility] Comment on above: Order Comment: Reaso n for exam?:fxInjury/Trauma or Illness?:Injury/TraumaHow long have you had these symptoms (acute/chronic)?:ChronicHistory of cancer?:?Surgeries, chemotherapy, or radiation?:cholecystectomyType of Exam?:Subsequent/Follow-upMechanism of injury?:contustion XR FLUOROSCOPY LESS THAN ONE HOURon 08-10-2017 XR FLUOROSCOPY LESS THAN ONE HOUR This is an auto finalized result. Please refer to patient chart for further information. information. information. [facility] Comment on above: Order Comment: Reaso n for exam?:orif wristInjury/Trauma or Illness?:Illness/OtherHow long have you had these symptoms (acute/chronic)?:UnknownType of Exam?:UnknownAdditional signs and symptoms?:Fluoro time in minutes:.07Fluoro dose in mGy?:1.32 CT HEAD OR BRAIN WITHOUT CON TRASTon 08-03-2017 CT HEAD OR BRAIN WITHOUT CONTRAST EXAMINATION:CT HEAD OR BRAIN WITHOUT CONTRASTHISTORY:ORDERING SYSTEM PROVIDED HISTORY: fall, closed head injury, TECHNOLOGIST PROVIDED HISTORY: Reason for exam: fall, abraisions to faceInjury/TraumaEncounter Type: InitialMechanism of injury: fallORDERING SYSTEM PROVIDED DIAGNOSIS CODES:COMPARISON:CT head December 31, 2010.TECHNIQUE:CT examination of the head without IV contrast.Dose reduction techniques were achieved by using automated exposure control and/or adjustment of mA and/or kV according to patient size and/or use of iterative reconstruction technique.FINDINGS:There are no findings of intracranial hemorrhage or extraaxial fluid collections. There is again generalized although frontal predominant atrophy. There is mild enlargement of the ventricles in proportion to widening of the sulcal pattern. There are scattered multifocal areas of patchy periventricular and subcortical low-attenuation changes in the white matter consistent with chronic small vessel ischemia. Mercedes-white matter interface is intact with no mass effect or shift of the midline indicators. No skull fracture. There is partial opacification of the right mastoid air cells inner ear cavity. Partially included in the bovqb-au-uace are left facial fractures including a depressed inferior left orbital wall fracture with hemorrhage in the left maxillary sinus.IMPRESSION:1. No signs of an acute intracranial process.2. Generalized atrophy of the brain with kcyh-rh-hnivdzri probable chronic small vessel ischemic changes.3. Opacification of the right mastoid air cells and inner ear cavity, which may be related to age-indeterminate otomastoiditis. Clinical correlation is recommended.4. Partially imaged are left facial fractures including a depressed left inferior orbital wall fracture with hemorrhage in the left maxillary sinus. Please see the CT facial bone report for further details.JAR/bdWorkstation ID: [id number] by: SY LEAHY on WedAug 03, 2017 4:06:30 PM ESTTranscribed by: BRENDAN VALDES on WedAug 03, 2017 4:11:43 PM ESTFinalized by: SY LEAHY on WedAug 03, 2017 5:47:14 PM EST Normal [facility] Comment on above: Order Comment: Reaso n for exam?:fall, abraisions to faceInjury/Trauma or Illness?:Injury/TraumaHow long have you had these symptoms (acute/chronic)?:AcuteType of Exam?:InitialMechanism of injury?:fall CT MAXILLOFACIAL WITHOUT CON TRASTon 08-03-2017 CT MAXILLOFACIAL WITHOUT CONTRAST EXAMINATION:CT MAXILLOFACIAL WITHOUT CONTRASTHISTORY:ORDERING SYSTEM PROVIDED HISTORY: fall, left side facial pain and jaw pain, TECHNOLOGIST PROVIDED HISTORY: Reason for exam: abraisions to faceInjury/TraumaEncounter Type: InitialMechanism of injury: fallORDERING SYSTEM PROVIDED DIAGNOSIS CODES:COMPARISON:CT head December 31, 2010. No previous CT facial bone studies.TECHNIQUE:CT examination of the facial bones without IV contrast. Additional 3D post processing was performed on a separate workstation.Dose reduction techniques were achieved by using automated exposure control and/or adjustment of mA and/or kV according to patient size and/or use of iterative reconstruction technique.FINDINGS:There is acute depressed left inferior orbital wall fracture with the majority of the left maxillary sinus containing fluid/hemorrhage. The inferior rectus muscle abuts the slight of the fractures without definitive CT evidence of muscle entrapment. There is preseptal periorbital soft tissue swelling with no postseptal intraorbital hematoma. There is an acute depressed fracture of the anterior left maxilla with about 6 mm of depression into the maxillary sinus. There is an acute fracture of the posterolateral left maxillary sinus wall. Small amount of soft tissue gas is seen along the fracture sites as expected. There is an acute fracture of the left lateral orbital wall. However, no definitive zygomatic arch fracture is appreciated. The bones are diffusely demineralized. Temporomandibular joints appear normally aligned. No acute fracture of the mandible is seen. Included cervical spine shows no acute fracture. There is sporadic mucosal thickening of the ethmoid sinuses as well as the right maxillary sinus. There is asymmetric opacification of the right mastoid air cells and opacity present within the right inner ear cavity. This was noted on the recent CT head study. The pterygoid plates are intact.IMPRESSION:1. Acute depressed left inferior orbital wall fracture with fluid and hemorrhage occupying the majority of the left maxillary sinus. The fracture fragments abut the inferior rectus muscle without definitive CT evidence of muscle entrapment however clinical correlation is recommended.2. Acute depressed fractures of the anterior and posterolateral left maxillary sinus pedersen, and a fracture of the lateral left orbital wall. No definitive zygomatic fracture to complete the zygomaticomaxillary complex fracture although the bones are demineralized which limits evaluation for nondisplaced fractures.3. No definitive fracture of the mandible. No temporomandibular joint dislocation.4. Asymmetric opacity in the right mastoid air cells and within the inner ear cavity suggests otomastoiditis. Clinical correlation recommended.5. Left periorbital soft tissue swelling with no postseptal intraorbital hematoma. The globe is intact.JAR/bdWorkstation ID: [id number] by: SY LEAHY on WedAug 03, 2017 4:22:29 PM ESTTranscribed by: BRENDAN VALDES on WedAug 03, 2017 4:26:18 PM ESTFinalized by: SY LEAHY on WedAug 03, 2017 5:47:02 PM EST Normal [facility] Comment on above: Order Comment: Reaso n for exam?:abraisions to faceInjury/Trauma or Illness?:Injury/TraumaHow long have you had these symptoms (acute/chronic)?:AcuteType of Exam?:InitialMechanism of injury?:fall XR WRIST LEFT 3+ VIEWS (BARB MAE)on 08-03-2017 XR WRIST LEFT 3+ VIEWS (STANDARD) EXAMINATION:XR WRIST LEFT 3+ VIEWS (STANDARD)HISTORY:ORDERING SYSTEM PROVIDED HISTORY: pain, TECHNOLOGIST PROVIDED HISTORY: Reason for exam: Pain left wristInjury/TraumaCancer History: ?Surgery, RadiationHistory: cholecystectomyEncounter Type: InitialMechanism of injury: pt fell todayORDERING SYSTEM PROVIDED DIAGNOSIS CODES:COMPARISON:None.FINDIN GS:There is a minimally displaced and angulated fracture at the distal radial metaphysis. No definite intraarticular extension is identified. There is also a nondisplaced fracture at the distal ulnar metaphysis. No additional fracture is present. The bones are diffusely osteopenic. Degenerative changes are present at the 1st carpometacarpal joint and radiocarpal joint.IMPRESSION:Minimally displaced fracture at the distal radial metaphysis without definite intraarticular extension. There is also a nondisplaced fracture at the distal ulnar metaphysis.Diffuse osteopenia.AJM/llcWorkstatio n ID: [id number] by: TYLER PORTILLO on WedAug 03, 2017 1:51:41 PM ESTTranscribed by: LILLIE RODRIGUEZ on WedAug 03, 2017 1:55:44 PM ESTFinalized by: TYLER PORTILLO on WedAug 03, 2017 3:03:15 PM EST Normal [facility] Comment on above: Order Comment: Reaso n for exam?:Pain left wristInjury/Trauma or Illness?:Injury/TraumaHow long have you had these symptoms (acute/chronic)?:AcuteHistory of cancer?:?Surgeries, chemotherapy, or radiation?:cholecystectomyType of Exam?:InitialMechanism of injury?:pt fell today prior fall US ABDOMEN COMPLETEon 2017 US ABDOMEN COMPLETE EXAMINATION:US ABDOMEN COMPLETEHISTORY:ORDERING SYSTEM PROVIDED HISTORY: Encntr screen for malignant neoplasm of genitourinary organs, TECHNOLOGIST PROVIDED HISTORY: Reason for exam: screen for malignant neoplasm of genitourinary organs, elevated acid phospataseIllness/OtherCance r History: ?Surgery, RadiationHistory: cholecystectomyEncounter Type: InitialAdditional signs and symptoms: noneORDERING SYSTEM PROVIDED DIAGNOSIS CODES:Z12.79 Encntr screen for malignant neoplasm of genitourinary llafxbT03.8 Acid phosphatase bahvxkfvK65.19 Personal history of digestive diseaseCOMPARISON:None.TECHN IQUE:Complete ultrasound of the abdomen.FINDINGS:Liver is normal in size. There is diffusely coarsened echotexture with peripheral nodular contour suggestive of liver cirrhosis. No focal hepatic lesion. The craniocaudal dimension of the liver measures 13.9 cm. Small amount of perihepatic ascites is present. No intrahepatic duct dilatation. Gallbladder is surgically absent. Common bile duct is normal caliber.The visualized pancreatic body appears normal. Remaining portions are obscured by bowel gas.Spleen is mildly prominent in size measuring 13.8 x 12.2 x 11.7 cm. Echotexture appears normal.Kidneys are normal in size and echogenicity. Right kidney measures 10.4 x 4.3 x 4.4 cm. Left kidney measures 10.4 x 4.2 x 4.2 cm. No hydronephrosis or nephrolithiasis. There is a simple intracortical cyst at the interpolar region measuring up to 0.7 cm.Visualized inferior vena cava and abdominal aorta appear normal.IMPRESSION:1. Liver cirrhosis without significant decrease in size.2. Mildly enlarged spleen.3. Small amount of perihepatic ascites.4. Gallbladder is surgically absent.5. No hydronephrosis or nephrolithiasis. No solid renal mass is identified./rWorkstation ID: [id number] by: CARLOS GONZALEZ on WedJul 29, 2017 9:13:35 AM ESTTranscribed by: GWENDOLYN AMES on WedJul 29, 2017 9:29:16 AM ESTFinalized by: CARLOS GONZALEZ on WedJul 29, 2017 8:29:54 PM EST Normal [facility] Comment on above: Order Comment: Reaso n for exam?:screen for malignant neoplasm of genitourinary organs, elevated acid phospataseInjury/Trauma or Illness?:Illness/OtherHow long have you had these symptoms (acute/chronic)?:UnknownHistory of cancer?:?Surgeries, chemotherapy, or radiation?:cholecystectomyType of Exam?:InitialAdditional signs and symptoms?:none CNOVSPon 02-04-2017 CNOVSP Visit (SP) Office ([facility]MAC[facility]) ----LANEY LARIOS ([id number]) 1955 [facility] Time Provider Department02/04/17 2:45 PM CAESAR VALENCIA HEMACL During your visit today, we recorded the following information about you: Temperature Pulse Respiration Blood pressure 97.7 degrees 80/minute 16/minute 102/63 Weight Height 46.4 kg 1.6 mMINDY REBECA SEGUNDO PA-C 02/04/2017 3:05 PM SignedCCObey Ajith Larios is a 61 year old female who presents in follow up with anemia ofchronic disease. Her hgb is down today to 8.7. Her abdominal wound is almostcompletely healed. Her only complaint is fatigue. She denies any bleeding.Current Outpatient Prescriptions:oxyCODONE-acet aminophen (PERCOCET) 5-325 mg tablet Take 1 tablet by mouth every4 hours as needed.sertraline (ZOLOFT) 50 mg tablet Take 50 mg by mouth once daily.traZODone (DESYREL) 150 mg tablet Take 150 mg by mouth daily at bedtime.omeprazole (PRILOSEC) 20 mg capsule Take 20 mg by mouth once daily.polyethylene glycol 3350 (MIRALAX, GLYCOLAX) 17 gram packet Take 17 g by mouthonce daily.aspirin, enteric coated (ASPIRIN, ENTERIC COATED) 81 mg EC tablet Take 81 mg bymouth once daily.MULTIVIT ANDamp;MINERALS/FERROUS FUM (MULTI VITAMIN ORAL) Take by mouth.[place]-3 Fatty Acids-Vitamin E 1,000 mg cap Take 1 capsule by mouth.cyanocobalamin (VITAMIN B-12) 1,000 mcg tab Take 1,000 mcg by mouth once daily.No current facility-administered medications for this visit.ALLERGIESNo Known AllergiesREVIEW OF SYSTEMSGENERAL: No weight loss, malaise or fevers., positive for fatigueHEENT: Negative for frequent or significant headaches, No changes in hearing orvision, no nose bleeds or other nasal problemsNECK: Negative for lumps, goiter, pain and significant neck swellingRESPIRATORY: Negative for cough, wheezing or shortness of breath.CARDIOVASCULAR: Negative for chest pain, leg swelling or palpitations.GI: Negative for abdominal discomfort, blood in stools or black stools orchange in bowel habitsMUSCULOSKELETAL: Negative for joint pain or swelling, back pain or muscle pain.SKIN: Negative for lesions, rash, and itching.PSYCH: Negative for sleep disturbance, mood disorder and recent psychosocialstressors.HEMATO LOGY/LYMPHOLOGY: Negative for prolonged bleeding, bruising easily orswollen nodes.NEURO: No history of headaches, syncope, paralysis, seizures or tremorsAll other reviewed and negative other than HPI.PHYSICAL EXAM:BP 102/63 Pulse 80 Temp 36.5 ?C (97.7 ?F) (Oral) Resp 16 Ht 160 cm (5'2.99ANDquot;) Wt 46.4 kg (102 lb 3.2 oz) BMI 18.11 kg/u6Wxsregd Appearance: alert and oriented, appearing in no acute distressSkin: skin color, texture, turgor normal, no suspicious rashes or lesions.Head: normal.Lungs: good air exchange overallHeart: RRRAbdomen: wound midabdomen has an eschar area on the upper right area of thewoundExtremities: Extremities normal. No deformities, edema, or skin discoloration.Good capillary refill..Psychiatric: the patient has an appropriate affectASSESSMENT/PLAN:1. Anemia due to other cause - ICD9: 285.8, ICD10: D64.89 (primary diagnosis)CBC shows worsening anemiaWe will check iron stores and call if they are low. Otherwise we will see herin year.2. Wound infection (HCC) - ICD9: 958.3, ICD10: T14.8, L08.9 Wound healing according to her.RUKHSANA RUSH-CReferring Provider: CAESAR VALENCIA [[id number]]Allergies As of Date: 02/04/2017(No Known Allergies)Date Reviewed: 02/04/2017Reviewed by: October Kojo - Fully AssessedReason for Visit: Anemia [6] Cmt: 1 year follow upPrimary Visit Diagnosis:Anemia, unspecified type [D64.9] Other Visit Diagnosis:Wound infection [T14.8, L08.9]Order(s):IRON + TIBC [SQIRON] Order #: [id number] FUTURE FERRITIN BLD [SQFERR] Order #: [id number] FUTUREDisposition: Return in about 1 year (around 02/04/2018).Follow-up and Disposition History RecordedPrescriptions as of 02/04/2017 Sig: OXYCODONE-ACETAMINOPHEN 5 MG-* Take 1 tablet by mouth every * SERTRALINE 50 MG TABLET Take 50 mg by mouth once lashell* TRAZODONE 150 MG TABLET Take 150 mg by mouth daily at* OMEPRAZOLE 20 MG CAPSULE,DAVINA* Take 20 mg by mouth once lashell* POLYETHYLENE GLYCOL 3350 17 G* Take 17 g by mouth once daily. ASPIRIN 81 MG TABLET,DELAYED * Take 81 mg by mouth once lashell* MULTI VITAMIN ORAL Take by mouth. [place]-3 FATTY ACIDS-VITAMIN E* Take 1 capsule by mouth. CYANOCOBALAMIN (VIT B-12) 1,0* Take 1,000 mcg by mouth once *Problem List As Of Date 02/04/2017 Noted Resolved Anemia [D64.9] INVALID FOR* Wound infection (HCC) [T14.8, L08.9] INVALID FOR*Encounter Status:Closed by LIGIA SEGUNDO on 02/04/17 [facility] PROGRESSon 02-04-2017 PROGRESS HNO ID: [id number] thor: Ligia Nettleservice: (none)Author Type: Physician AssistantType: Progress NotesFiled: 02/04/2017 3:05 PMNote Text:CCAEstrella Larios is a 61 year old female who presents in follow up withanemia of chronic disease. Her hgb is down today to 8.7. Her abdominalwound is almost completely healed. Her only complaint is fatigue. Shedenies any bleeding.Current Outpatient Prescriptions:oxyCODONE-acet aminophen (PERCOCET) 5-325 mg tablet Take 1 tablet by mouthevery 4 hours as needed.sertraline (ZOLOFT) 50 mg tablet Take 50 mg by mouth once daily.traZODone (DESYREL) 150 mg tablet Take 150 mg by mouth daily at bedtime.omeprazole (PRILOSEC) 20 mg capsule Take 20 mg by mouth once daily.polyethylene glycol 3350 (MIRALAX, GLYCOLAX) 17 gram packet Take 17 g bymouth once daily.aspirin, enteric coated (ASPIRIN, ENTERIC COATED) 81 mg EC tablet Take 81mg by mouth once daily.MULTIVIT ANDMINERALS/FERROUS FUM (MULTI VITAMIN ORAL) Take by mouth.[place]-3 Fatty Acids-Vitamin E 1,000 mg cap Take 1 capsule by mouth.cyanocobalamin (VITAMIN B-12) 1,000 mcg tab Take 1,000 mcg by mouth oncedaily.No current facility-administered medications for this visit.ALLERGIESNo Known AllergiesREVIEW OF SYSTEMSGENERAL: No weight loss, malaise or fevers., positive for fatigueHEENT: Negative for frequent or significant headaches, No changes inhearing or vision, no nose bleeds or other nasal problemsNECK: Negative for lumps, goiter, pain and significant neck swellingRESPIRATORY: Negative for cough, wheezing or shortness of breath.CARDIOVASCULAR: Negative for chest pain, leg swelling or palpitations.GI: Negative for abdominal discomfort, blood in stools or black stools orchange in bowel habitsMUSCULOSKELETAL: Negative for joint pain or swelling, back pain or musclepain.SKIN: Negative for lesions, rash, and itching.PSYCH: Negative for sleep disturbance, mood disorder and recentpsychosocial stressors.HEMATOLOGY/LYMPHOL OGY: Negative for prolonged bleeding, bruising easily orswollen nodes.NEURO: No history of headaches, syncope, paralysis, seizures or tremorsAll other reviewed and negative other than HPI.PHYSICAL EXAM:BP 102/63 Pulse 80 Temp 36.5 ?C (97.7 ?F) (Oral) Resp 16 Ht 160 cm(5' 2.99 ) Wt 46.4 kg (102 lb 3.2 oz) BMI 18.11 kg/u2Eirknhn Appearance: alert and oriented, appearing in no acute distressSkin: skin color, texture, turgor normal, no suspicious rashes or lesions.Head: normal.Lungs: good air exchange overallHeart: RRRAbdomen: wound midabdomen has an eschar area on the upper right area ofthe woundExtremities: Extremities normal. No deformities, edema, or skindiscoloration. Good capillary refill..Psychiatric: the patient has an appropriate affectASSESSMENT/PLAN:1. Anemia due to other cause - ICD9: 285.8, ICD10: D64.89 (primarydiagnosis)CBC shows worsening anemiaWe will check iron stores and call if they are low. Otherwise we will seeher in year.2. Wound infection (HCC) - ICD9: 958.3, ICD10: T14.8, L08.9 Wound healing according to her.LIGIA SEGUNDO PA-C Normal [facility] Remote CBCDIF (for [facility] use o nly)on 02-04-2017 Abs Baso 0.01 k/uL Normal 0.00-0.10 [facility] Abs [place] 0.30 k/uL Normal 0.00-0.86 [facility] Abs Neut 2.10 k/uL Normal 1.45-7.50 [facility] Basophils/100 WBC Auto (Bld) 0.3 % Normal [facility] Eosinophils 0.21 10*3/uL Normal 0.00-0.45 [facility] Eosinophils/100 leukocytes 5.4 % Normal [facility] Erythrocyte distribution width Auto Ratio (RBC) 14.3 % Normal 11.5-15.0 [facility] Erythrocytes (RBC) 2.59 10*6/uL [facility] 3[facility]90-5.20 [facility] Hematocrit (HCT) 27.8 % Low 36.0-46.[address] [facility] Hemoglobin mass conc (Bld) 8.7 g/dL Low 11.5-15.5 [facility] Lymphocytes 1.25 10*3/uL Normal 1.00-4.00 [facility] Lymphocytes/100 leukocytes 32.3 % Normal [facility] MCH 33.6 pG Normal 26.0-34.0 [facility] MCHC mass conc (RBC) 31.3 g/dL Normal 30.5-36.0 [facility] MCV 107.3 fL High 80.0-100.0 [facility] Monocytes/100 leukocytes 7.8 % Normal [facility] Neutrophils/100 WBC Auto (Bld) 54.2 % Normal [facility] Platelet mean volume (PMV) 8.9 fL Low 9.0-12.7 [facility] Platelets 140 10*3/uL Low 150-400 [facility] WBC (Leukocytes) 3.87 10*3/uL Normal 3.70-11.00 [facility] Vital Signs Date Time Vital Sign Value Performing Clinician Ember balderas 01-08-2018 03:45-0400 BP Diastolic 64 mm[Hg] [facility] 01-08-2018 03:45-0400 BP Systolic 87 mm[Hg] [facility] 01-08-2018 03:45-0400 Pulse (Heart Rate) 71 /min [facility] 01-08-2018 03:45-0400 Pulse Oximetry 98 % [facility] 01-08-2018 03:45-0400 Respiratory Rate 18 /min [facility] 01-07-2018 22:19-0400 BMI (Body Mass Index) 17.01 kg/m2 [facility] 01-07-2018 22:19-0400 Body Temperature 97.59 [degF] [facility] 01-07-2018 22:19-0400 Height 160 cm [facility] 01-07-2018 22:19-0400 Weight 43.55 kg [facility] Encounters Encounter Date Encounter Type Care Provider Facility Start: 04-01-2023 End: 04-01-2023 ambulatory [facility] Start: 12-31-2022 End: 12-31-2022 ambulatory SH[facility] Start: 12-11-2022 End: 12-12-2022 ambulatory WAYLON CAVAZOS [facility] Start: 11-02-2022 End: 11-02-2022 ambulatory [facility] Start: 10-14-2022 End: 10-15-2022 ambulatory ADE TAN [facility] Start: 09-09-2022 End: 09-09-2022 ambulatory [facility] Start: 09-01-2022 End: 09-02-2022 ambulatory ZOYAPRASHANT MARYELLEN [facility] Start: 08-25-2022 End: 08-26-2022 ambulatory ADE [facility] Start: 06-18-2022 End: 06-18-2022 ambulatory [facility] Start: 09-02-2021 End: 09-03-2021 Evaluation and management of inpatient SHAIKH KAISER Facility: Start: 06-26-2021 End: 06-27-2021 ambulatory REFERRED SELF Facility:[facility] Start: 03-24-2021 End: 03-25-2021 ambulatory REFERRED SELF Facility:[facility] Start: 09-11-2020 End: 09-11-2020 Orders Only Leticia Wright Work Phone: [facility] Start: 01-08-2018 End: 01-08-2018 Emergency department patient visit GHASSAN ZEINA [facility] Start: 01-07-2018 End: 01-08-2018 Emergency department patient visit Del Christianson Work Phone: [facility] Emergency Department Start: 08-25-2017 End: 08-26-2017 Ambulatory MICHAEL LATHAM [facility] Start: 08-10-2017 End: 08-10-2017 Patient encounter MICHAEL ADAMS [facility] Start: 08-04-2017 End: 08-04-2017 Ambulatory MICHAEL LATHAM [facility] Start: 08-03-2017 End: 08-03-2017 Emergency department patient visit YOANA ROSALES [facility] Start: 07-29-2017 End: 07-30-2017 Patient encounter [facility] Start: 07-27-2017 End: 07-27-2017 Patient encounter [facility] Start: 07-02-2017 End: 07-02-2017 Patient encounter [facility] Start: 06-24-2017 End: 06-24-2017 Patient encounter [facility] Start: 02-04-2017 End: 02-05-2017 Ambulatory CAESAR VALENCIA [facility] Procedures Date Procedure Procedure Detail Performing Clinician Start: 11-02-2022 Follow-up visit Follow-up SHO MILLER Start: 03-24-2021 ANES UPR GI NDSC PX NOS REFERRED SELF Start: 03-24-2021 EGD DIAGNOSTIC BRUSH WASH JULIANO LUCAS Plan of Treatment Date Care Activity Detail Author Start: 08-03-[facility]27 [facility]: 03-12-2020 Influenza vaccination given Se quential Influenza Vaccine (#1) [facility] Start: 03-12-2018 Influenza vaccination SEQUENTI AL INFLUENZA VACCINE (Season Ended) [facility] Start: 2016 Zoster vaccine hzv l adriana for subcutaneous use ZOSTER VACCINE [facility] Start: 2006 Administration of he rpes zoster vaccine Zoster Vaccines (1 of 2) [facility] Start: 2006 Screening for malign ant neoplasm of colon [facility] Start: 1972 COVID-19 Vaccine (1 of 2) COVID-19 V accine (1 of 2) [facility] Start: 1971 HIV screening HIV Screening [facility] Start: 1968 Adolescent depressio n screening assessment Depression Screening (PHQ9) [facility] Start: 1959 History and physical examination, annual for health maintenance Wellness Visit [facility] Start: 1955 Screening colonoscopy COLONOSCOPY O [facility] Start: 1955 Screening for malign ant neoplasm of cervix PAP SMEAR [facility] Start: 1955 Screening mammography Mammogram O [facility] End: 01-07-2018 Bacteria aerobode culture Urine Aerobic Culture Routine Once for 1 Occurrences starting 01/07/2018 until 01/07/2018 [facility] Bacteria aerobode culture Urine Aerobic Culture Routine 01/07/2018 11:13 PM EDT [facility] End: 01-07-2018 Bacteria culture Blood Culture Aerobic/Anaerobic Routine Once for 1 Occurrences starting 01/07/2018 until 01/07/2018 [facility] Bacteria culture [facility] Immunizations Immunization Date Immunization Notes Care Provider Fa cility 08-03-2017 tetanus toxoid, redu jason diphtheria toxoid, and acellular pertussis vaccine, adsorbed; Translations: [TDAP] Del Christianson [facility] Payers Date Payer Category Payer Medicaid [id number] 2016 Medicaid [employer] [id number] 2016-Present [id number] 1958 Medicaid [id number] 1955 Unknown [id number] 1955 Unknown [id number] 1955 Unknown [id number] Social History Date Type Detail Facility Start: 01-07-2018 End: 05-10-2018 Tobacco smoking status MEIS Former smoker [facility] End: 08-10-2014 History of tobacco use Current smoker [facility] Sex Assigned At Not on file [facility] Start: 05-10-2018 Tobacco use and exposure Never used [facility] Start: 05-10-2018 Alcohol intake Current non-dr stull hewer of alcohol (finding) [facility] Medical Equipment Procedure Code Equipment Code Equipment Original Text Equipment Identifier Dates 3 Hole Plate Start: 08-10-2017 Synthes 2.7mm X 14mm Cortex Screw Start: 08-10-2017 2.7mm Locker Screws Start: 08-10-2017 2.7 Locker Screws Start: 08-10-2017 2.7 Locker Screws Start: 08-10-2017 2.7 Locker Screws Start: 08-10-2017 3 Hole Plate [id number] Start: 08-10-2017 Comment on above: Description: Sterili zation Indicators Verified / No Expiration Dates Noted Synthes 2.7mm X 14mm Cortex Screw [id number] Start: 08-10-2017 Comment on above: Description: Sterili zation Indicators Verified / No Expiration Dates Noted 2.7mm Locker Screws [id number] Start: 08-10-2017 Comment on above: Description: Sterili zation Indicators Verified / No Expiration Dates Noted 2.7 Locker Screws [id number] Start: 08-10-2017 Comment on above: Description: Sterili zation Indicators Verified / No Expiration Dates Noted 2.7 Locker Screws [id number] Start: 08-10-2017 Comment on above: Description: Sterili zation Indicators Verified / No Expiration Dates Noted 2.7 Locker Screws [id number] Start: 08-10-2017 Comment on above: Description: Sterili zation Indicators Verified / No Expiration Dates Noted Clinical Notes 06-18-2022 to 04-01-2023 Note Date & Type Note Facility 04-01-2023 Note [facility] Gastroenterolog y Follow-Up Patient Visit CHIEF COMPLAINT Chief Complaint Patient presents with Anemia autoummune Hepatitis Cirrhosis HISTORY OF PRESENT ILLNESS: Laney Larios is a 67 y.o. female previously seen in the office by Dr. Lucas for evaluation of her history of cirrhosis. Summary of old records: Per HPI from 06/18/22 Laney Larios is a 67 y.o. female previously seen in the office by Dr. Lucas for evaluation of her history of cirrhosis.. Cirrhosis was diagnosed in 2014. No history of ETOH abuse. In 2016, auto immune hepatitis was suspected, but was not able to be confirmed by biopsy. Past history is complex, and is significant for remote history of gastric bypass, a lap. cholecystectomy in 2011, which was complicated by a bile leak and complete occlusion of the CBD, requiring PTC drain placement and later hepaticojejunostomy. Later, she developed a ventral hernia, which was repaired with mesh in 2014. Following this surgery, she was diagnosed with cirrhosis. Unfortunately, she developed an infection and the mesh was removed. She develop a large incisional hernia but was thought to not be a candidate for surgery secondary to her liver disease. She continued to be symptomatic with the hernia, and eventually, she underwent a high risk surgery in [address] Macedo for repair of the hernia. She did develop a post op seroma, but eventually recovered, and was back to baseline. She was off Imuran for the surgery for a period of time, but in Aug 2019, the Imuran was able to be restarted. 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 She has also under gone multiple EGD procedures to follow up on her history for varices. MOst recent was Jun 2021, and the decision was made to not do any more banding. Recommendation was follow up EGD in one year. She also has a history of diarrhea. Extensive work up was negative. Today, she reports some improvement in the diarrhea. States she is taking the lactulose, and denies confusion today, but admits to confusions sometimes . Denies vomiting. Denies blood in the stool. She is currently following with Pallative care. She is also following with Hematology, and was diagnosed with hemochromatosis, but has not been able to have therapeutic phlebotomy due to her history of chronic anemia. We have also been following her for pancreatic cysts. Most recent MRCP was November 2021 and showed stable cysts. INTERVAL HISTORY: 09/09/22 Ms Larios returns in follow up. Because of her worsening anemia, the recommendation was to stop Imuran and monitor liver enzymes. Imuran was stopped approx 06/30/22. Orders were sent for monthly labs to monitor transaminases. Follow up EGD was completed 08/25/21. Large varices were seen, but unable to be banded 2/2 unknown INR Repeat EGD was done 09/02/22 and bands were placed. Recommendation was repeat EGD in 2 weeks. Today, Ms Larios reports tolerating the EGD well. Denies n/v, denies hematemesis States lactulose was recently increased to three times a day, and now having 4-5 bowel movement/day. Reports some right side abdpain that she attributes to a lymph node Denies blood in the stool, states has not noticed dark stools, but admits to not always looking. INTERVAL HISTORY: 11/02/22 Laney Larios returns in follow up. Most recent EGD was 10/14/22 and showed Findings: The esophagus was noted to have 2 columns of large varices w/ red jody signs. The varices partially flattened out on insufflation. A small area of ulcer (likely from banding) noted just above the GE junction. Using banding kit, total of 2 bands successfully placed resulting in deflation of varices. Portal hypertensive gastropathy (mild) noted in stomach particularly fundus and body. No gastric varices observed. The duodenal bulb was noted to have a 1cm subepithelial lesion at 12 o-clock position going into sweep. A previously placed endoclip noted just above the subepithelial lesion. No ulcer or active bleeding noted. The first and second part of duodenum were unremarkable. Today, she reports that she was awake when the bit block was inserted and this was very uncomfortable. She also reports more throat pain following the procedure. Denies throat pain today. No particular c/o from a liver standpoint today. She denies RUQ abd pain, denies increased abdominal girth. Denies confusion. States she is compliant with the lactulose and xifaxan. Denies diarrhea. Today, Ms Larios states she will be leaving her ECF and going to live with her grandson. State that she will be moving to the [facility]. Recommendation was to establish with a GI provider in the area. INTERVAL 12/31/22: Mx Larios returns in follow up. 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 She has been off Imuran for approx 6 months. The Imuran was held Jun 2022 due to worsening anemia. Most recent liver enzymes ( off Imuran) were WNL Ms. Larios also follow (more content not included)... [facility] 12-31-2022 Note [facility] Gastroenterolog y Follow-Up Patient Visit CHIEF COMPLAINT Chief Complaint Patient presents with Follow-up Pt here for follow up to labs and US. HISTORY OF PRESENT ILLNESS: Laney Larios is a 67 y.o. female previously seen in the office by Dr. Lucas for evaluation of her history of cirrhosis. Summary of old records: Per HPI from 06/18/22 Laney Larios is a 67 y.o. female previously seen in the office by Dr. Lucas for evaluation of her history of cirrhosis.. Cirrhosis was diagnosed in 2014. No history of ETOH abuse. In 2016, auto immune hepatitis was suspected, but was not able to be confirmed by biopsy. Past history is complex, and is significant for remote history of gastric bypass, a lap. cholecystectomy in 2011, which was complicated by a bile leak and complete occlusion of the CBD, requiring PTC drain placement and later hepaticojejunostomy. Later, she developed a ventral hernia, which was repaired with mesh in 2014. Following this surgery, she was diagnosed with cirrhosis. Unfortunately, she developed an infection and the mesh was removed. She develop a large incisional hernia but was thought to not be a candidate for surgery secondary to her liver disease. She continued to be symptomatic with the hernia, and eventually, she underwent a high risk surgery in [address] Macedo for repair of the hernia. She did develop a post op seroma, but eventually recovered, and was back to baseline. She was off Imuran for the surgery for a period of time, but in Aug 2019, the Imuran was able to be restarted. 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 She has also under gone multiple EGD procedures to follow up on her history for varices. MOst recent was Jun 2021, and the decision was made to not do any more banding. Recommendation was follow up EGD in one year. She also has a history of diarrhea. Extensive work up was negative. Today, she reports some improvement in the diarrhea. States she is taking the lactulose, and denies confusion today, but admits to confusions sometimes . Denies vomiting. Denies blood in the stool. She is currently following with Pallative care. She is also following with Hematology, and was diagnosed with hemochromatosis, but has not been able to have therapeutic phlebotomy due to her history of chronic anemia. We have also been following her for pancreatic cysts. Most recent MRCP was November 2021 and showed stable cysts. INTERVAL HISTORY: 09/09/22 Ms Larios returns in follow up. Because of her worsening anemia, the recommendation was to stop Imuran and monitor liver enzymes. Imuran was stopped approx 06/30/22. Orders were sent for monthly labs to monitor transaminases. Follow up EGD was completed 08/25/21. Large varices were seen, but unable to be banded 08/13 unknown INR Repeat EGD was done 09/02/22 and bands were placed. Recommendation was repeat EGD in 2 weeks. Today, Ms Larios reports tolerating the EGD well. Denies n/v, denies hematemesis States lactulose was recently increased to three times a day, and now having 4-5 bowel movement/day. Reports some right side abdpain that she attributes to a lymph node Denies blood in the stool, states has not noticed dark stools, but admits to not always looking. INTERVAL HISTORY: 11/02/22 Laney Larios returns in follow up. Most recent EGD was 10/14/22 and showed Findings: The esophagus was noted to have 2 columns of large varices w/ red jody signs. The varices partially flattened out on insufflation. A small area of ulcer (likely from banding) noted just above the GE junction. Using banding kit, total of 2 bands successfully placed resulting in deflation of varices. Portal hypertensive gastropathy (mild) noted in stomach particularly fundus and body. No gastric varices observed. The duodenal bulb was noted to have a 1cm subepithelial lesion at 12 o-clock position going into sweep. A previously placed endoclip noted just above the subepithelial lesion. No ulcer or active bleeding noted. The first and second part of duodenum were unremarkable. Today, she reports that she was awake when the bit block was inserted and this was very uncomfortable. She also reports more throat pain following the procedure. Denies throat pain today. No particular c/o from a liver standpoint today. She denies RUQ abd pain, denies increased abdominal girth. Denies confusion. States she is compliant with the lactulose and xifaxan. Denies diarrhea. Today, Ms Larios states she will be leaving her ECF and going to live with her grandson. State that she will be moving to the [facility] area. Recommendation was to establish with a GI provider in the area. INTERVAL 12/31/22: Mx Larios returns in follow up. 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 She has been off Imuran for approx 6 months. The Imuran was held Jun 2022 due to worsening anemia. Most recent liver enzymes ( off Imuran) were WNL Ms. Larios als (more content not included)... [facility] 12-11-2022 Note Patient: Laney Larios Procedure Information Anesthesia Start Date/Time: 12/11/22 1019 Scheduled providers: Waylon Cavazos MD; Herb Mims MD; LOREN Curran Procedure: ENDOSCOPIC ULTRASOUND (UPPER) Location: [facility] Relevant Problems Cardio (+) Essential hypertension Endo (+) Type 2 diabetes mellitus without complication (CMS/HCC) /Renal (+) Advanced cirrhosis of liver (CMS/HCC) (+) Chronic autoimmune hepatitis (CMS/HCC) Pulmonary (+) COPD (chronic obstructive pulmonary disease) (CMS/HCC) Clinical information reviewed: Allergies Meds Med Hx Surg Hx Fam Hx Physical Exam Airway Mallampati: II TM distance: >3 FB Neck ROM: full Cardiovascular Rhythm: regular Rate: normal Dental Pulmonary Breath sounds clear to auscultation Abdominal Anesthesia Plan ASA 2 MAC (Plan Monitored Anesthesia Care (MAC) with backup general anesthesia if needed. ) intravenous induction Anesthetic plan and risks discussed with patient. Plan discussed with CAA. Additional Equipment Requests [facility] 12-11-2022 Note Patient: Laney Larios Procedure Summary Date: 12/11/22 Room / Location: [facility] Anesthesia Start: 1019 Anesthesia Stop: 1125 Procedure: ENDOSCOPIC ULTRASOUND (UPPER) Diagnosis: Duodenal mass Scheduled Providers: Waylon Cavazos MD; Herb Mims MD; LOREN Curran Responsible Provider: Herb Mims MD Anesthesia Type: general ASA Status: Not recorded Anesthesia Type: general Anesthesia Post Evaluation Patient location during evaluation: PACU Patient participation: complete - patient participated Level of consciousness: awake Pain management: adequate Cardiovascular status: acceptable Respiratory status: acceptable Hydration status: acceptable Patient is hemodynamically stable and is able to be discharged from PACU per anesthesia protocol. No notable events documented. [facility] 12-11-[address] Cavazos speaking with patient at bedside. Report called to [facility] and spoke with Mandy. All questions answered at this time. Pictures from procedure and discharge instructions sent with patient back to facility Yajaira Mays RN PACU [facility] 12-11-2022 Note Airway Date/Time: 12/11/2022 10:25 AM Urgency: elective General Information and Staff Patient location during procedure: OR Anesthesiologist: Herb Mims MD Resident/CONSTRUCTION CRAFT LABORER/CAA: LOREN Curran Performed: resident/CONSTRUCTION CRAFT LABORER/CAA Indications and Patient Condition Indications for airway management: anesthesia Spontaneous Ventilation: absent Sedation level: deep Preoxygenated: yes Mask difficulty assessment: 1 - vent by mask Final Airway Details Final airway type: endotracheal airway Successful airway: ETT Cuffed: yes Successful intubation technique: video laryngoscopy Facilitating devices/methods: intubating stylet Endotracheal tube insertion site: oral Blade: Muir Blade size: #3 ETT size (mm): 7.0 Cormack-Lehane Classification: grade I - full view of glottis Placement verified by: chest auscultation and capnometry Measured from: lips ETT to lips (cm): 20 Number of attempts at approach: 1 Number of other approaches attempted: 0 [facility] 12-02-2022 Note Faxed to [facility] [phone] Medications to take AM day of procedure with sips water only. Sertraline midodrine Medication Hold instructions: NSAIDs (Motrin,Aleve): 5 days prior to procedure Vitamins/Supplements: 5 days prior to procedure Nothing to eat or drink after midnight, including Gum, Candy, Mints, Ice chips also. At least one person needs to accompany you, to be your cement truck driver home and stay with you the first 24 hours after the procedure. Remove jewelry and leave at home day of procedure. Loose comfortable clothing is recommended. Bring insurance card and ID for registration purposes. [facility] 11-02-2022 Note [facility] Gastroenterolog y Follow-Up Patient Visit CHIEF COMPLAINT Chief Complaint Patient presents with Follow-up HISTORY OF PRESENT ILLNESS: Laney Larios is a 67 y.o. female previously seen in the office by Dr. Lucas for evaluation of her history of cirrhosis. Summary of old records: Per HPI from 06/18/22 Laney Larios is a 67 y.o. female previously seen in the office by Dr. Lucas for evaluation of her history of cirrhosis.. Cirrhosis was diagnosed in 2014. No history of ETOH abuse. In 2016, auto immune hepatitis was suspected, but was not able to be confirmed by biopsy. Past history is complex, and is significant for remote history of gastric bypass, a lap. cholecystectomy in 2011, which was complicated by a bile leak and complete occlusion of the CBD, requiring PTC drain placement and later hepaticojejunostomy. Later, she developed a ventral hernia, which was repaired with mesh in 2014. Following this surgery, she was diagnosed with cirrhosis. Unfortunately, she developed an infection and the mesh was removed. She develop a large incisional hernia but was thought to not be a candidate for surgery secondary to her liver disease. She continued to be symptomatic with the hernia, and eventually, she underwent a high risk surgery in [address] Macedo for repair of the hernia. She did develop a post op seroma, but eventually recovered, and was back to baseline. She was off Imuran for the surgery for a period of time, but in Aug 2019, the Imuran was able to be restarted. 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 She has also under gone multiple EGD procedures to follow up on her history for varices. MOst recent was Jun 2021, and the decision was made to not do any more banding. Recommendation was follow up EGD in one year. She also has a history of diarrhea. Extensive work up was negative. Today, she reports some improvement in the diarrhea. States she is taking the lactulose, and denies confusion today, but admits to confusions sometimes . Denies vomiting. Denies blood in the stool. She is currently following with Pallative care. She is also following with Hematology, and was diagnosed with hemochromatosis, but has not been able to have therapeutic phlebotomy due to her history of chronic anemia. We have also been following her for pancreatic cysts. Most recent MRCP was November 2021 and showed stable cysts. INTERVAL HISTORY: 09/09/22 Ms Larios returns in follow up. Because of her worsening anemia, the recommendation was to stop Imuran and monitor liver enzymes. Imuran was stopped approx 06/30/22. Orders were sent for monthly labs to monitor transaminases. Follow up EGD was completed 08/25/21. Large varices were seen, but unable to be banded 08/13 unknown INR Repeat EGD was done 09/02/22 and bands were placed. Recommendation was repeat EGD in 2 weeks. Today, Ms Larios reports tolerating the EGD well. Denies n/v, denies hematemesis States lactulose was recently increased to three times a day, and now having 4-5 bowel movement/day. Reports some right side abdpain that she attributes to a lymph node Denies blood in the stool, states has not noticed dark stools, but admits to not always looking. INTERVAL HISTORY: 11/02/22 Laney Larios returns in follow up. Most recent EGD was 10/14/22 and showed Findings: The esophagus was noted to have 2 columns of large varices w/ red jody signs. The varices partially flattened out on insufflation. A small area of ulcer (likely from banding) noted just above the GE junction. Using banding kit, total of 2 bands successfully placed resulting in deflation of varices. Portal hypertensive gastropathy (mild) noted in stomach particularly fundus and body. No gastric varices observed. The duodenal bulb was noted to have a 1cm subepithelial lesion at 12 o-clock position going into sweep. A previously placed endoclip noted just above the subepithelial lesion. No ulcer or active bleeding noted. The first and second part of duodenum were unremarkable. Today, she reports that she was awake when the bit block was inserted and this was very uncomfortable. She also reports more throat pain following the procedure. Denies throat pain today. No particular c/o from a liver standpoint today. She denies RUQ abd pain, denies increased abdominal girth. Denies confusion. States she is compliant with the lactulose and xifaxan. Denies diarrhea. Today, Ms Larios states she will be leaving her F and going to live with her grandson. State that she will be moving to the [facility] area. PREVIOUS LABS/IMAGING/ENDOSCOPY: Labs: 06/14/22 Alk phos - 66 AST 18 ALT 8 Total Bili 1.1 Labs 08/17/22 Alk phos - 86 AST 20 ALT 11 Hb 7.7 Platelet 55 Labs 08/26/22 Hb 9 Platelet 48 Endoscopic procedures EGD 06/26/2021 Esophageal varices and portal hypertensive gastropathy. RECOMMENDATION: Given that the patient has been banded (more content not included)... [facility] 10-14-2022 Note Patient: Laney Larios Procedure Summary Date: 10/14/22 Room / Location: [facility] [place] [facility] [place] Anesthesia Start: 1029 Anesthesia Stop: 1102 Procedure: EGD Diagnosis: Esophageal varices without bleeding, unspecified esophageal varices type (CMS/HCC) Scheduled Providers: Ade Tan MD; Marcelina Govea MD; LOREN Hamm Responsible Provider: Marcelina Govea MD Anesthesia Type: MAC ASA Status: 3 Anesthesia Type: MAC Vitals Value Taken Time BP 133/60 10/14/22 1129 Temp 36.4 10/14/22 1142 Pulse 67 10/14/22 1129 Resp 16 10/14/22 1129 SpO2 100 % 10/14/22 1129 Anesthesia Post Evaluation Patient location during evaluation: PACU Patient participation: complete - patient participated Level of consciousness: awake and alert Pain management: adequate Multimodal analgesia pain management approach Airway patency: patent Cardiovascular status: acceptable and stable Respiratory status: acceptable, room air, nonlabored ventilation and spontaneous ventilation Hydration status: acceptable Comments: Pt acceptable for discharge from PACU No notable events documented. [facility] 10-14-2022 Note Patient: Laney Larios Procedure Information Date/Time: 10/14/22 1045 Scheduled providers: Ade Tan MD; Marcelina Govea MD; LOREN Hamm Procedure: EGD Location: [facility] [place] [facility] Relevant Problems Cardio (+) Essential hypertension Endo (+) Type 2 diabetes mellitus without complication (CMS/HCC) /Renal (+) Advanced cirrhosis of liver (CMS/HCC) (+) Chronic autoimmune hepatitis (CMS/HCC) Pulmonary (+) COPD (chronic obstructive pulmonary disease) (CMS/HCC) Clinical information reviewed: Tobacco Allergies Meds Med Hx Surg Hx OB Status Fam Hx Soc Hx Physical Exam Airway Mallampati: I Neck ROM: full Cardiovascular - normal exam Rhythm: regular Rate: normal Dental - normal exam Pulmonary - normal exam Abdominal - normal exam Other findings: Small mouth Edentulous Very thin with multiple bruises to arms Anesthesia Plan ASA 3 MAC The patient is not a current smoker. intravenous induction Anesthetic plan and risks discussed with patient. Plan discussed with CAA. Additional Equipment Requests [facility] 10-01-2022 Note FAXED TO [facility] FAX # [phone] Medications to take AM day of procedure with sips water only. MIDODRINE SERTRALINE Medication Hold instructions: NSAIDs (Motrin,Aleve): 5 days prior to procedure Vitamins/Supplements: 5 days prior to procedure Nothing to eat or drink after midnight, including Gum, Candy, Mints, Ice chips also. At least one person needs to accompany you, to be your cement truck driver home and stay with you the first 24 hours after the procedure. Remove jewelry and leave at home day of procedure. Loose comfortable clothing is recommended. Bring insurance card and ID for registration purposes. [facility] 09-15-2022 Note Patient is currently on Xifaxan 550mg tablet and it is requiring a prior authorization (PA) renewal at this time. Submitted PA through CoverMyMeds today. Awaiting determination. Aguilar Mac, Document Design Specialist 09/15/22 10:22 AM [facility] 09-15-2022 Note PA not required at t his time. Xifaxan already has a current PA in place that is good through 09/24/2023. Felisha Damon, Laurie, [facility] Outpatient Clinical Pharmacist [facility] [phone] 09/16/22 1:35 PM [facility] 09-09-2022 Note Fall Risk Prevention Given Unive [facility] 09-09-2022 Note [facility] Gastroenterolog y Follow-Up Patient Visit CHIEF COMPLAINT No chief complaint on file. HISTORY OF PRESENT ILLNESS: Laney Larios is a 67 y.o. female previously seen in the office by Dr. Lucas for evaluation of her history of cirrhosis. Summary of old records: Per HPI from 06/18/22 Laney Larios is a 67 y.o. female previously seen in the office by Dr. Lucas for evaluation of her history of cirrhosis.. Cirrhosis was diagnosed in 2014. No history of ETOH abuse. In 2015, auto immune hepatitis was suspected, but was not able to be confirmed by biopsy. Past history is complex, and is significant for remote history of gastric bypass, a lap. cholecystectomy in 2011, which was complicated by a bile leak and complete occlusion of the CBD, requiring PTC drain placement and later hepaticojejunostomy. Later, she developed a ventral hernia, which was repaired with mesh in 2014. Following this surgery, she was diagnosed with cirrhosis. Unfortunately, she developed an infection and the mesh was removed. She develop a large incisional hernia but was thought to not be a candidate for surgery secondary to her liver disease. She continued to be symptomatic with the hernia, and eventually, she underwent a high risk surgery in [address] Macedo for repair of the hernia. She did develop a post op seroma, but eventually recovered, and was back to baseline. She was off Imuran for the surgery for a period of time, but in Aug 2019, the Imuran was able to be restarted. 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 She has also under gone multiple EGD procedures to follow up on her history for varices. MOst recent was Jun 2021, and the decision was made to not do any more banding. Recommendation was follow up EGD in one year. She also has a history of diarrhea. Extensive work up was negative. Today, she reports some improvement in the diarrhea. States she is taking the lactulose, and denies confusion today, but admits to confusions sometimes . Denies vomiting. Denies blood in the stool. She is currently following with Pallative care. She is also following with Hematology, and was diagnosed with hemochromatosis, but has not been able to have therapeutic phlebotomy due to her history of chronic anemia. We have also been following her for pancreatic cysts. Most recent MRCP was November 2021 and showed stable cysts. INTERVAL HISTORY: 09/09/22 Ms Larios returns in follow up. Because of her worsening anemia, the recommendation was to stop Imuran and monitor liver enzymes. Imuran was stopped approx 06/30/22. Orders were sent for monthly labs to monitor transaminases. Follow up EGD was completed 08/25/21. Large varices were seen, but unable to be banded 2 unknown INR Repeat EGD was done 09/02/22 and bands were placed. Recommendation was repeat EGD in 2 weeks. Today, Ms Larios reports tolerating the EGD well. Denies n/v, denies hematemesis States lactulose was recently increased to three times a day, and now having 4-5 bowel movement/day. Reports some right side abdpain that she attributes to a lymph node Denies blood in the stool, states has not noticed dark stools, but admits to not always looking. PREVIOUS LABS/IMAGING/ENDOSCOPY: Labs: 06/14/22 Alk phos - 66 AST 18 ALT 8 Total Bili 1.1 Labs 08/17/22 Alk phos - 86 AST 20 ALT 11 Hb 7.7 Platelet 55 Labs 08/26/22 Hb 9 Platelet 48 Endoscopic procedures EGD 06/26/2021 Esophageal varices and portal hypertensive gastropathy. RECOMMENDATION: Given that the patient has been banded multiple times, decided not to band her varices for fear of stricture. Would recommend repeat EGD in 1 year and otherwise follow up in Hepatology Clinic. EGD 2/14/22 Esophageal varices and portal hypertensive gastropathy. RECOMMENDATION: Given that the patient has been banded multiple times, decided not to band her varices for fear of stricture. Would recommend repeat EGD in 1 year and otherwise follow up in Hepatology Clinic. EGD 09/02/22 Impression: Large varices with red jody sign s/p 2 bands Portal hypertensive gastropathy Previously placed clipped seen in the duodenal bulb Recommendations: Repeat EGD in 2-4 weeks Follow up with hepatology HISTORY: Problem list: Patient Active Problem List Diagnosis Open wound of abdominal wall Abdominal pain Backache Advanced cirrhosis of liver (CMS/HCC) Altered mental status Pancytopenia (CMS/HCC) Chronic autoimmune hepatitis (CMS/HCC) Chronic diarrhea Chronic pain Closed fracture distal radius and ulna, left, initial encounter COPD (chronic obstructive pulmonary disease) (CMS/HCC) COVID Depression Essential hypertension Gallstone Hematochezia Hepatic encephalopathy Hereditary hemochromatosis (CMS/HCC) Hyperlipidemia Intestinal obstruction (CMS/HCC) Jaundice Lumbar radiculopathy Moderate protein-calorie malnutrition (weight for age 60-74% of standard (more content not included)... [facility] 09-01-2022 Note Patient: Laney Larios Procedure Summary Date: 09/01/22 Room / Location: [facility] OR Anesthesia Start: 1624 Anesthesia Stop: 1647 Procedure: EGD Diagnosis: Secondary esophageal varices without bleeding (CMS/HCC) Scheduled Providers: Angelo Lr MD; LOREN Julian; Juliano Augustine MD Responsible Provider: Tyler Angel MD Anesthesia Type: MAC ASA Status: 3 Anesthesia Type: MAC Vitals Value Taken Time BP 139/72 09/01/22 1645 Temp 36.1 ???C (97 ???F) 09/01/22 1645 Pulse 79 09/01/22 1645 Resp 14 09/01/22 1645 SpO2 99 % 09/01/22 1645 Anesthesia Post Evaluation Patient location during evaluation: PACU Patient participation: complete - patient participated Level of consciousness: sleepy but conscious Pain management: adequate Airway patency: patent Cardiovascular status: acceptable Respiratory status: acceptable Hydration status: acceptable No notable events documented. [facility] 09-01-2022 Note Patient: Laney Larios Procedure Information Date/Time: 09/01/22 1530 Scheduled providers: Angelo Lr MD; LOREN Julian; Juliano Augustine MD Procedure: EGD Location: [facility] OR Past Medical History: Diagnosis Date ??? Autoimmune hepatitis (CMS/HCC) ??? Bowel obstruction (CMS/HCC) HISTORY ??? Cirrhosis (CMS/HCC) ??? COPD (chronic obstructive pulmonary disease) (CMS/HCC) ??? COVID-19 04/2019 ??? Depression ??? Hepatic encephalopathy ??? HL (hearing loss) ??? Pancreatic cyst ??? Pancytopenia (CMS/HCC) Relevant Problems Cardio (+) Essential hypertension Endo (+) Type 2 diabetes mellitus without complication (CMS/HCC) /Renal (+) Advanced cirrhosis of liver (CMS/HCC) (+) Chronic autoimmune hepatitis (CMS/HCC) Pulmonary (+) COPD (chronic obstructive pulmonary disease) (CMS/HCC) Clinical information reviewed: Tobacco Allergies Meds Med Hx Surg Hx Fam Hx Physical Exam Airway Mallampati: II TM distance: >3 FB Neck ROM: full Cardiovascular - normal exam Rhythm: regular Rate: normal Dental - normal exam Pulmonary - normal exam Abdominal - normal exam (+) scaphoid Anesthesia Plan ASA 3 MAC The patient is not a current smoker. Patient was not previously instructed to abstain from smoking on day of procedure. Patient did not smoke on day of procedure. Education provided regarding risk of obstructive sleep apnea. intravenous induction Anesthetic plan and risks discussed with patient. Plan discussed with CONSTRUCTION CRAFT LABORER. Additional Equipment Requests [facility] 08-25-2022 Note Patient: Laney Larios Procedure Summary Date: 08/25/22 Room / Location: [facility] Anesthesia Start: 1115 Anesthesia Stop: 1157 Procedure: EGD Diagnosis: Esophageal varices without bleeding, unspecified esophageal varices type (CMS/HCC) Scheduled Providers: Ade Tan MD; Dyllan Layton MD Responsible Provider: Dyllan Layton MD Anesthesia Type: MAC ASA Status: 3 Anesthesia Type: MAC Vitals Value Taken Time BP 90/51 08/25/22 1155 Temp 36.6 ???C (97.9 ???F) 08/25/22 1155 Pulse 60 08/25/22 1155 Resp 15 08/25/22 1155 SpO2 96 % 08/25/22 1155 Anesthesia Post Evaluation Patient location during evaluation: PACU Patient participation: complete - patient participated Level of consciousness: sleepy but conscious Pain score: 0 Pain management: adequate Multimodal analgesia pain management approach Airway patency: patent Cardiovascular status: acceptable Respiratory status: acceptable Hydration status: acceptable There were no known notable events for this encounter. Park Lovell MD Capacity Manager PGY-2 08/25/2022 11:57 AM [facility] 08-25-2022 Note Gastroenterology His tory and Physical Note IDENTIFYING DATA PATIENT: Laney Larios HISTORY OF PRESENT ILLNESS Laney Larios is a 67 y.o. female presenting for EGD for variceal surveillance. History of prior banding. PAST MEDICAL, SURGICAL, FAMILY, and SOCIAL HISTORY Past Medical History: Past Medical History: Diagnosis Date Autoimmune hepatitis (CMS/HCC) Bowel obstruction (CMS/HCC) HISTORY Cirrhosis (CMS/HCC) COPD (chronic obstructive pulmonary disease) (CMS/HCC) COVID-19 04/2019 Depression Hepatic encephalopathy HL (hearing loss) Pancreatic cyst Pancytopenia (CMS/HCC) Past Surgical History: Past Surgical History: Procedure Laterality Date APPENDECTOMY SECTION, LOW TRANSVERSE CHOLECYSTECTOMY EXPLORATORY LAPAROTOMY [address] macedo to repair hernia HERNIA REPAIR HYSTERECTOMY SMALL INTESTINE SURGERY Family History: Family History Problem Relation Name Age of Onset Colon cancer Neg Hx Social History: Social History Tobacco Use Smoking status: Never Smokeless tobacco: Never Substance Use Topics Alcohol use: Never Drug use: Never Allergies: No Known Allergies Home Medications: Prior to Admission medications Medication Sig Start Date End Date Taking? Authorizing Provider albuterol 2.5 mg /3 mL (0.083 %) nebulizer solution albuterol sulfate 2.5 mg/3 mL (0.083 %) solution for nebulization Historical Provider, amLODIPine-benazepriL (Lotrel) 10-40 mg capsule amlodipine 10 mg-benazepril 40 mg capsule Historical Provider, aspirin 81 mg chewable tablet aspirin 81 mg chewable tablet Historical Provider, azaTHIOprine (Imuran) 50 mg tablet every 12 (twelve) hours. 12/07/19 Historical Provider, benzocaine/menthol (CEPACOL SORE THROAT, SADAF-MEN, MM) Place into mouth between cheek and gum in the morning, at noon, in the evening, and at bedtime. PRN Historical Provider, bisacodyl (Dulcolax) 10 mg suppository in the morning. Historical Provider, cholecalciferol (Vitamin D3) 5,000 Units tablet Take 5,000 Units by mouth in the morning. Historical Provider, ciprofloxacin (Cipro) 500 mg tablet ciprofloxacin 500 mg tablet Historical ProviderMD cyanocobalamin (Vitamin B-12) 1,000 mcg tablet in the morning. Historical Provider, dextran 70-hypromellose (Bion Tears) 0.1-0.3 % ophthalmic solution 1 drop if needed in the morning, at noon, and at bedtime for dry eyes. Historical Provider, docusate sodium (Colace) 100 mg capsule 1 capsule in the morning. Historical Provider, doxycycline (Monodox) 100 mg capsule doxycycline monohydrate 100 mg capsule Historical Provider, erythromycin (Romycin) 5 mg/gram (0.5 %) ophthalmic ointment erythromycin 5 mg/gram (0.5 %) eye ointment Historical Provider, fluconazole (Diflucan) 150 mg tablet fluconazole 150 mg tablet Historical Provider, fluticasone (Flovent) 220 mcg/actuation inhaler Flovent HFA 220 mcg/actuation aerosol inhaler Historical Provider, ibuprofen 400 mg tablet Take 400 mg by mouth every 6 (six) hours if needed for moderate pain (4-7 pain score). Historical Provider, lactulose 10 gram/15 mL solution Take 30 mL by mouth every 8 (eight) hours. Historical Provider, lidocaine (Xylocaine) 5 % ointment every 6 (six) hours. Historical Provider, loratadine (Claritin) 10 mg tablet in the morning. Historical Provider, magnesium oxide 400 mg magnesium capsule 1 capsule. Historical Provider, menthol (Biofreeze, menthol,) 10 % cream Apply topically if needed. Historical Provider, midodrine (Proamatine) 10 mg tablet Take 10 mg by mouth in the morning, at noon, and at bedtime. Historical Provider, nicotine (Nicoderm CQ) 21 mg/24 hr patch nicotine 21 mg/24 hr daily transdermal patch Historical ProviderMD nitrofurantoin, macrocrystal-monohydrate, (Macrobid) 100 mg capsule nitrofurantoin monohydrate/macrocrystals 100 mg capsule Historical Provider, nystatin (Mycostatin) ointment nystatin 100,000 unit/gram topical ointment Historical Provider, ondansetron (Zofran) 4 mg tablet every 8 (eight) hours. Historical Provider, pantoprazole (ProtoNix) 40 mg EC tablet in the morning. Historical Provider, potassium chloride CR (Klor-Con) 10 mEq ER tablet in the morning. 08/02/17 Historical Provider, prochlorperazine (Compazine) 5 mg tablet every 12 (twelve) hours. Historical Provider, rifAXIMin (Xifaxan) 550 mg tablet Take 550 mg by mouth in the morning and at bedtime. Historical Provider, SARS-CoV-2 vaccine (Comirnaty) 30 mcg/0.3 mL suspension for reconstitution [employer] COVID-19 Vaccine (PF) 30 mcg/0.3 mL IM susp (purple) ADMINISTER 0.3ML IN THE MUSCLE DIRECTED Historical Provider, sertraline (Zoloft) 25 mg tablet in the morning. Historical Provider, sulfamethoxazole-trimethoprim (Bactrim) 400-80 mg tablet sulfamethoxazole 400 mg-trimethoprim 80 mg tablet Historical Pro (more content not included)... [facility] 08-25-2022 Note Gastroenterology His tory and Physical Note IDENTIFYING DATA PATIENT: Laney Larios HISTORY OF PRESENT ILLNESS Laney Larios is a 67 y.o. female presenting for EGD for variceal surveillance. History of prior banding. PAST MEDICAL, SURGICAL, FAMILY, and SOCIAL HISTORY Past Medical History: Past Medical History: Diagnosis Date Autoimmune hepatitis (CMS/HCC) Bowel obstruction (CMS/HCC) HISTORY Cirrhosis (CMS/HCC) COPD (chronic obstructive pulmonary disease) (CMS/HCC) COVID-19 04/2019 Depression Hepatic encephalopathy HL (hearing loss) Pancreatic cyst Pancytopenia (CMS/HCC) Past Surgical History: Past Surgical History: Procedure Laterality Date APPENDECTOMY SECTION, LOW TRANSVERSE CHOLECYSTECTOMY EXPLORATORY LAPAROTOMY [address] macedo to repair hernia HERNIA REPAIR HYSTERECTOMY SMALL INTESTINE SURGERY Family History: Family History Problem Relation Name Age of Onset Colon cancer Neg Hx Social History: Social History Tobacco Use Smoking status: Never Smokeless tobacco: Never Substance Use Topics Alcohol use: Never Drug use: Never Allergies: No Known Allergies Home Medications: Prior to Admission medications Medication Sig Start Date End Date Taking? Authorizing Provider albuterol 2.5 mg /3 mL (0.083 %) nebulizer solution albuterol sulfate 2.5 mg/3 mL (0.083 %) solution for nebulization Historical Provider, amLODIPine-benazepriL (Lotrel) 10-40 mg capsule amlodipine 10 mg-benazepril 40 mg capsule Historical Provider, aspirin 81 mg chewable tablet aspirin 81 mg chewable tablet Historical Provider, azaTHIOprine (Imuran) 50 mg tablet every 12 (twelve) hours. 12/07/19 Historical Provider, benzocaine/menthol (CEPACOL SORE THROAT, SADAF-MEN, MM) Place into mouth between cheek and gum in the morning, at noon, in the evening, and at bedtime. PRN Historical Provider, bisacodyl (Dulcolax) 10 mg suppository in the morning. Historical Provider, cholecalciferol (Vitamin D3) 5,000 Units tablet Take 5,000 Units by mouth in the morning. Historical Provider, ciprofloxacin (Cipro) 500 mg tablet ciprofloxacin 500 mg tablet Historical Provider, cyanocobalamin (Vitamin B-12) 1,000 mcg tablet in the morning. Historical Provider, dextran 70-hypromellose (Bion Tears) 0.1-0.3 % ophthalmic solution 1 drop if needed in the morning, at noon, and at bedtime for dry eyes. Historical Provider, docusate sodium (Colace) 100 mg capsule 1 capsule in the morning. Historical Provider, doxycycline (Monodox) 100 mg capsule doxycycline monohydrate 100 mg capsule Historical Provider, erythromycin (Romycin) 5 mg/gram (0.5 %) ophthalmic ointment erythromycin 5 mg/gram (0.5 %) eye ointment Historical Provider, fluconazole (Diflucan) 150 mg tablet fluconazole 150 mg tablet Historical ProviderMD fluticasone (Flovent) 220 mcg/actuation inhaler Flovent HFA 220 mcg/actuation aerosol inhaler Historical Provider, ibuprofen 400 mg tablet Take 400 mg by mouth every 6 (six) hours if needed for moderate pain (4-7 pain score). Historical Provider, lactulose 10 gram/15 mL solution Take 30 mL by mouth every 8 (eight) hours. Historical Provider, lidocaine (Xylocaine) 5 % ointment every 6 (six) hours. Historical Provider, loratadine (Claritin) 10 mg tablet in the morning. Historical Provider, magnesium oxide 400 mg magnesium capsule 1 capsule. Historical Provider, menthol (Biofreeze, menthol,) 10 % cream Apply topically if needed. Historical Provider, midodrine (Proamatine) 10 mg tablet Take 10 mg by mouth in the morning, at noon, and at bedtime. Historical Provider, nicotine (Nicoderm CQ) 21 mg/24 hr patch nicotine 21 mg/24 hr daily transdermal patch Historical Provider, nitrofurantoin, macrocrystal-monohydrate, (Macrobid) 100 mg capsule nitrofurantoin monohydrate/macrocrystals 100 mg capsule Historical Provider, nystatin (Mycostatin) ointment nystatin 100,000 unit/gram topical ointment Historical Provider, ondansetron (Zofran) 4 mg tablet every 8 (eight) hours. Historical Provider, pantoprazole (ProtoNix) 40 mg EC tablet in the morning. Historical Provider, potassium chloride CR (Klor-Con) 10 mEq ER tablet in the morning. 08/02/17 Historical Provider, prochlorperazine (Compazine) 5 mg tablet every 12 (twelve) hours. Historical Provider, rifAXIMin (Xifaxan) 550 mg tablet Take 550 mg by mouth in the morning and at bedtime. Historical Provider, SARS-CoV-2 vaccine (Comirnaty) 30 mcg/0.3 mL suspension for reconstitution [employer] COVID-19 Vaccine (PF) 30 mcg/0.3 mL IM susp (purple) ADMINISTER 0.3ML IN THE MUSCLE DIRECTED Historical Provider, sertraline (Zoloft) 25 mg tablet in the morning. Historical Provider, sulfamethoxazole-trimethoprim (Bactrim) 400-80 mg tablet sulfamethoxazole 400 mg-trimethoprim 80 mg tablet Historical Pro (more content not included)... [facility] 08-25-2022 Note Patient: Laney Larios Procedure Information Date/Time: 08/25/22 1130 Scheduled providers: Ade Tan MD; Dyllan Layton MD Procedure: EGD Location: [facility] Relevant Problems Cardio (+) Essential hypertension Endo (+) Type 2 diabetes mellitus without complication (CMS/HCC) /Renal (+) Advanced cirrhosis of liver (CMS/HCC) (+) Chronic autoimmune hepatitis (CMS/HCC) Pulmonary (+) COPD (chronic obstructive pulmonary disease) (CMS/HCC) Clinical information reviewed: Tobacco Allergies Meds Med Hx Surg Hx Fam Hx Soc Hx Physical Exam Airway Mallampati: II TM distance: >3 FB Neck ROM: full Cardiovascular Rhythm: regular Rate: normal Dental Pulmonary Breath sounds clear to auscultation Abdominal - normal exam Anesthesia Plan ASA 3 MAC The patient is not a current smoker. Patient was not previously instructed to abstain from smoking on day of procedure. Patient did not smoke on day of procedure. intravenous induction Use of blood products discussed with who consented to blood products. Plan discussed with resident. Additional Equipment Requests [facility] 06-18-2022 Note [facility] Gastroenterolog y Follow-Up Patient Visit CHIEF COMPLAINT Chief Complaint Patient presents with Follow-up HISTORY OF PRESENT ILLNESS: Laney Larios is a 67 y.o. female previously seen in the office by Dr. Lucas for evaluation of her history of cirrhosis.. Cirrhosis was diagnosed in 2014. No history of ETOH abuse. In 2016, auto immune hepatitis was suspected, but was not able to be confirmed by biopsy. Past history is complex, and is significant for remote history of gastric bypass, a lap. cholecystectomy in 2011, which was complicated by a bile leak and complete occlusion of the CBD, requiring PTC drain placement and later hepaticojejunostomy. Later, she developed a ventral hernia, which was repaired with mesh in 2014. Following this surgery, she was diagnosed with cirrhosis. Unfortunately, she developed an infection and the mesh was removed. She develop a large incisional hernia but was thought to not be a candidate for surgery secondary to her liver disease. She continued to be symptomatic with the hernia, and eventually, she underwent a high risk surgery in [address] Macedo for repair of the hernia. She did develop a post op seroma, but eventually recovered, and was back to baseline. She was off Imuran for the surgery for a period of time, but in Aug 2019, the Imuran was able to be restarted. 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 She has also under gone multiple EGD procedures to follow up on her history for varices. MOst recent was Jun 2021, and the decision was made to not do any more banding. Recommendation was follow up EGD in one year. She also has a history of diarrhea. Extensive work up was negative. Today, she reports some improvement in the diarrhea. States she is taking the lactulose, and denies confusion today, but admits to confusions sometimes . Denies vomiting. Denies blood in the stool. On 11/15/21 our office was contacted by Ms Saba caretakers at the assisted living, stating that she was not eating having more diarrhea, and vomiting, and refusing medications. Pallative care was requested, and she is currently following with Palliative care. Today, I was able to obtain some new documentation for Ms. Larios. Prior to today, I was not aware that she was following with Hematology for her history of anemia. She was referred to Hematology in 2020 following a hospital stay for Covid. Work up revealed Hemochromatosis with heterozygous H36D mutation, however, she has been unable to have a phlebotomy due to chronic anemia and thrombocytopenia. (Interesting, ferritin was WNL during her initial evaluation with Dr. Lucas in 2014). She was last seen by Hematology 06/12/22, and iron chelation is being considered if ferritin continues to rise. Recommendation was for MRCP to follow up on known pancreatic cyst. MRCP November 2021 showed cirrhotic liver, with no obvious focal mass, and stable pancreatic cysts. Recommendation was follow up MRCP in 12 months. HISTORY: Problem list: Patient Active Problem List Diagnosis Open wound of abdominal wall Abdominal pain Backache Advanced cirrhosis of liver (CMS/HCC) Altered mental status Pancytopenia (CMS/HCC) Chronic autoimmune hepatitis (CMS/HCC) Chronic diarrhea Chronic pain Closed fracture distal radius and ulna, left, initial encounter COPD (chronic obstructive pulmonary disease) (CMS/HCC) COVID Depression Essential hypertension Gallstone Hematochezia Hepatic encephalopathy Hereditary hemochromatosis (CMS/HCC) Hyperlipidemia Intestinal obstruction (CMS/HCC) Jaundice Lumbar radiculopathy Moderate protein-calorie malnutrition (weight for age 60-74% of standard) (CMS/HCC) Pancreatic cyst Type 2 diabetes mellitus without complication (CMS/HCC) Ventral incisional hernia Wound infection Past Medical History: History reviewed. No pertinent past medical history. Past Surgical History: Past Surgical History: Procedure Laterality Date EXPLORATORY LAPAROTOMY [address] macedo to repair hernia FAMILY HISTORY: Family History Problem Relation Name Age of Onset Colon cancer Neg Hx SOCIAL HISTORY: Social History Tobacco Use Smoking status: Never Smokeless tobacco: Never Substance Use Topics Alcohol use: Never Drug use: Never ALLERGIES: Patient has no known allergies. Current Medications: Current Outpatient Medications: amLODIPine-benazepriL (Lotrel) 10-40 mg capsule, amlodipine 10 mg-benazepril 40 mg capsule, Disp: , Rfl: azaTHIOprine (Imuran) 50 mg tablet, every 12 (twelve) hours., Disp: , Rfl: bisacodyl (Dulcolax) 10 mg suppository, in the morning., Disp: , Rfl: ciprofloxacin (Cipro) 500 mg tablet, ciprofloxacin 500 mg tablet, Disp: , Rfl: cyanocobalamin (Vitamin B-12) 1,000 mcg tablet, in the morning., Disp: , Rfl: docusate sodium (Colace) 100 mg capsule, 1 capsule in the morning., Disp: , Rfl: doxycycline (Monodox) 100 mg capsul (more content not included)... [facility] Summary Purpose Family History No Family History Records FoundNo Family History Records FoundNo Family History Records FoundNo Family History Records FoundNo Family History Records FoundNo Family History Records Found Advance Directives No Advanced Directives Records FoundLatest Code Status on File Code Status Date Activated Date Inactivated Comments Full Code 08/09/2017 10:03 AM 08/10/2017 10:05 AM Assessments Diagnosis Altered mental status, unspe cified altered mental status type - Primary Acute UTI Urinary tract infection, site not specified Hepatic encephalopathy (HCC) Hepatic encephalopathy Hypokalemia Hypopotassemia Additional Source Comments INFORMATION SOURCE (unrecogn ized section and content) DATE CREATED AUTHOR 12/31/2017 [facility] DATE CREATED AUTHOR AUTHOR'S ORGANIZ ATION 01/05/2018 [facility] DATE CREATED AUTHOR AUTHOR'S ORGANIZ ATION 02/04/2018 [facility] DATE CREATED AUTHOR AUTHOR'S ORGANIZ ATION 09/08/2021 [facility] DATE CREATED AUTHOR AUTHOR'S ORGANIZ ATION 02/15/2022 [facility] DATE CREATED AUTHOR AUTHOR'S ORGANIZ ATION 04/16/2023 [facility] ED Notes - Irina Wynn RN - 01/08/2018 3:55 AM EDTED Notes - Irina Wynn RN - 01/08/2018 3:42 AM EDTED Notes - Irina Wynn RN - 01/08/2018 3:33 AM EDT Miscellaneous Notes (unrecog nized section and content) Report given to: DEJA Sheehan at [facility] at this time. Report given to: aJyce [facility] Pt bathed head to toe d/t visible lice crawling t/o pt hair and on face. Physician and RN notified of transport. Urine drug screen not collected; error in marking collected. Patient is resting comfortably. Call light within reach. Patient updated on continued plan of care. Pt returned from CT Scan vomiting, per Dr. Meghan canseco for grace. Patient is resting comfortably. Call light within reach. Patient updated on continued plan of care. Patient is resting comfortably. Call light within reach. Patient updated on continued plan of care. Associated Order(s): ECG 12-LEAD Formatting of this note may be different from the original. [facility] ED Physician Note: NAME: Laney Larios 62 y.o. CSN: [id number] PCP: Ghassan Peña CNP ED Course / Medical Decision Making: Patient comes in with altered mental status and seeing things and feeling fatigued. She has a history of liver cirrhosis. She states she seen at [facility] at [place]. 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 Her liver ammonia level is elevated she does have hepatic encephalopathy most likely causing her symptoms. She also has a UTI which I treated her with Rocephin. Her blood pressure is slightly low but she has no fever no signs of bacteremia or sepsis. Patient denies any back pain I doubt any pyelonephritis. She has a reducible ventral hernia which is old however she is having some tenderness in that area. I do feel she needs transferred back to [facility] since that is where her care is for her cirrhosis and that is where patient wants to go. Case with [facility] transfer center they will call back when a bed available. My shift is ending so I discussed case with Dr. Dewey Arce and he will talk to [facility] and fill out transfer sheet once accepting physician is available. MDM Number of Diagnoses or Management Options Acute UTI: new, needed workup Altered mental status, unspecified altered mental status type: new, needed workup Hepatic encephalopathy (HCC): new, needed workup Hypokalemia: new, needed workup Amount and/or Complexity of Data Reviewed Clinical lab tests: ordered Tests in the medicine section of CPT : ordered Review and summarize past medical records: yes Independent visualization of images, tracings, or specimens: yes Risk of Complications, Morbidity, and/or Mortality Presenting problems: moderate Diagnostic procedures: moderate Management options: moderate Clinical Impression: SNOMED CT(R) 1. Altered mental status, unspecified altered mental status type ALTERED MENTAL STATUS 2. Acute UTI ACUTE URINARY TRACT INFECTION 3. Hepatic encephalopathy (HCC) HEPATIC ENCEPHALOPATHY 4. Hypokalemia HYPOKALEMIA Disposition: Patient is being Transfer to [facility] to [facility] No medications on file History: Chief Complaint: Weakness and Hallucinations HPI: The history was obtained from the patient. She is a 62 y.o. female who presents with a chief complaint of Weakness and Hallucinations. HPI patient comes in with generalized weakness and feeling shaky. She states that she is supposed to be on trazodone and vitamin D and sertraline but she has not had it filled in a month. He said that she is starting to see things like a cath that was not there for a cup but not there. She is alert and oriented here in the ER. She denies any fever chills nausea vomiting diarrhea constipation. She does have a ventral hernia that hurts. Does have a history of liver cirrhosis PMHx: Past Medical History: Diagnosis Date COPD (chronic obstructive pulmonary disease) (HCC) Liver cirrhosis (HCC) Rheumatoid arthritis (HCC) PMSx: Past Surgical History: Procedure Laterality Date BOWEL RESECTION zoila at the same time SECTION HYSTERECTOMY ORIF WRIST Left 08/10/2017 Procedure: OPEN REDUCTION INTERNAL FIXATION WRIST LEFT DISTAL RADIUS; Surgeon: Michael Latham MD; Location: [facility] Main OR; Service: Orthopedic FAM. Hx: Family History Problem Relation Age of Onset Heart disease Father SOC. Hx: Social History Social History Marital status: Legally Spouse name: N/A Number of children: N/A Years of education: N/A Occupational History Not on file. Social History Main Topics Smoking status: Former Smoker Quit date: 08/10/2014 Smokeless tobacco: Never Used Alcohol use No Drug use: No Sexual activity: Not on file Other Topics Concern Not on file Social History Narrative No narrative on file MEDs: Previous Medications ASPIRIN 81 MG EC TABLET Take 81 mg by mouth. CYANOCOBALAMIN (B-12) 1000 MCG TABLET Take 1,000 mcg by mouth. POTASSIUM CHLORIDE (K-DUR) 10 MEQ CR TABLET Take 10 mEq by mouth daily. TRAZODONE (DESYREL) 50 MG TABLET Take by mouth nightly as needed for sleep. VITAMIN D3 2,000 UNIT CAP ALL: No Known Allergies ROS: Review of Systems Constitutional: Negative. HENT: Negative. Eyes: Negative. Respiratory: Negative. Cardiovascular: Negative. Gastrointestinal: Positive for abdominal pain. Negative for abdominal distention, anal bleeding, blood in stool, constipation, diarrhea, nausea, rectal pain and vomiting. Endocrine: Negative. Genitourinary: Negative. Musculoskeletal: Negative. Skin: Negative. Allergic/Immunologic: Negative. Neurological: Positive for tremors. Negative for dizziness, seizures, syncope, facial asymmetry, speech difficulty, weakness, light-headedness, numbness and headaches. Psychiatric/Behavioral: Negative for agitation, behavioral problems, confusion, decreased concentration, dysphoric mood, hallucinations, self-injury, sleep disturbance and suicidal ideas. The patient is not nervous/anxious and is not hyperactive. All other systems reviewed and are negative. Positives and pertinent negatives as per HPI. All other systems were reviewed and are negative. Physical Exam: Patient Vitals for the past 24 hrs: BP Temp Temp src Pulse Resp SpO2 Height Weight 01/08/18 0015 97/60 - - 77 18 96 % - - 01/07/18 2358 100/72 - - 81 (!) 20 99 % - - 01/07/18 2315 93/63 - - 75 18 99 % - - 01/07/18 2230 (!) 95/59 - - 84 16 99 % - - 01/07/18 2219 90/71 97.6 ?F (36.4 ?C) Oral 88 16 99 % 5' 3 43.5 kg (96 lb) Physical Exam Constitutional: She is oriented to person, place, and time. She appears well-developed and well-nourished. No distress. HENT: Head: Normocephalic. Right Ear: External ear normal. Left Ear: External ear normal. Nose: Nose normal. Mouth/Throat: Oropharynx is clear and moist. Eyes: Pupils are equal, round, and reactive to light. Neck: No JVD present. Cardiovascular: Normal rate, regular rhythm and normal heart sounds. Exam reveals no gallop and no friction rub. No murmur heard. Pulmonary/Chest: Effort normal and breath sounds normal. No stridor. No respiratory distress. She has no wheezes. She has no rales. She exhibits no tenderness. Abdominal: Soft. Bowel sounds are normal. She exhibits no distension and no mass. There is no tenderness. There is no rebound and no guarding. No hernia. Musculoskeletal: She exhibits no edema, tenderness or deformity. Neurological: She is alert and oriented to person, place, and time. No cranial nerve deficit. Skin: No rash noted. She is not diaphoretic. No erythema. No pallor. Nursing note and vitals reviewed. Laboratory & Radiological Imaging (if done): Labs Reviewed URINALYSIS - Abnormal; Notable for the following: Result Value Clarity, Urine Cloudy (*) Protein, Urine 30 (*) Glucose, Urine 50 (*) Bilirubin, Urine Positive (*) Urobilinogen, Urine >=4.0 (*) Blood, Urine Large (*) Leukocyte Esterase, Urine Trace (*) RBCs, Urine 4 (*) Bacteria, Urine Few (*) Mucus, Urine Many (*) All other components within normal limits Narrative: Microscopic examination is performed on all urinalysis samples and only positive findings are reported. The test for blood on the chemical analytic portion of urinalysis may also be positive due to hemoglobinuria and myoglobinuria and if red blood cells are present they are quantified by microscopic examination. CHEM 7 - Abnormal; Notable for the following: Potassium 3.0 (*) Chloride 114 (*) Glucose 104 (*) BUN/Creatinine Ratio 22.1 (*) All other components within normal limits Narrative: The eGFR should be used for monitoring renal function only and not for medication dosing. HEPATIC FUNCTION PANEL - Abnormal; Notable for the following: Total Protein 9.0 (*) Albumin 1.7 (*) Total Bilirubin 2.2 (*) Bilirubin, Direct 1.3 (*) Alkaline Phosphatase 299 (*) All other components within normal limits AMMONIA - Abnormal; Notable for the following: Ammonia 135 (*) All other components within normal limits BLOOD GAS, VENOUS - Abnormal; Notable for the following: pCO2, Homar 40.2 (*) Hemoglobin, Blood Gas 9.5 (*) Hematocrit, Calculated 29.5 (*) All other components within normal limits PT/INR - Abnormal; Notable for the following: Protime (PT) 19.1 (*) INR 1.6 (*) All other components within normal limits Narrative: During the induction phase of oral anticoagulation, the INR may not reflect the anticoagulation status of the patient. Therapeutic ranges for INR's are: Most clinical situations: INR 2.0-3.0 Mechanical Prosthetic Valve: INR 2.5-3.5 Critical: INR >5.0 POC GLUCOSE - Abnormal; Notable for the following: Glucose 105 (*) All other components within normal limits POC GLUCOSE - RALS - Abnormal; Notable for the following: Glucose 105 (*) All other components within normal limits CBC WITH AUTO DIFFERENTIAL - Abnormal; Notable for the following: RBC 2.72 (*) Hemoglobin 9.4 (*) Hematocrit 27.9 (*) MCV 102.6 (*) MCH 34.6 (*) Platelets 142 (*) RDW - CV 14.9 (*) All other components within normal limits TROPONIN - Normal ALCOHOL, MEDICAL - Normal URINE AEROBIC CULTURE BLOOD CULTURE AEROBIC/ANAEROBIC BLOOD CULTURE AEROBIC/ANAEROBIC CBC AND DIFFERENTIAL Narrative: The following orders were created for panel order CBC w/ Diff. Procedure Abnormality Status --------- ------ CBC Auto Differential[[id number]] Abnormal Final result Please view results for these tests on the individual orders. OBTAIN VENOUS BLOOD GASES DRUGS OF ABUSE SCREEN, URINE CT Abdomen Pelvis With IV Contrast Only Preliminary Result 1. Cirrhotic morphology of the liver with splenomegaly and [id number] volume of predominantly upper abdominal ascites and stigmata of portal hypertension, similar in appearance to the prior examination. Pneumobilia and prior cholecystectomy, as before. 2. There is thickening of the wall of the ascending and [id number] transverse colon which may be related to underlying portal colopathy or in the appropriate clinical setting, infectious or inflammatory colitis. No evidence for bowel obstruction. There is a prominent amount of fluid within nondilated mid small bowel without evidence for bowel obstruction. No free air. 3. Prior fixation of the left femoral neck. Prior hysterectomy. Bilateral L5 pars defects with grade 1 anterolisthesis of L5 on S1. [facility] Workstation ID: [id number] CT Head Or Brain Without Contrast Final Result 1. No acute intracranial process. 2. Age-related atrophy with stable mild chronic small-vessel white matter ischemia. 3. Mild chronic-appearing left sphenoid sinusitis. 4. Bilateral mastoid effusions, moderate on the right and small on the left, not significantly changed. Workstation ID: [id number] XR Chest 1 View Preliminary Result No acute pulmonary abnormality is visualized. /[facility] Workstation ID: [id number] Procedures: EKG 12-lead Date/Time: 01/08/2018 12:11 AM Performed by: DEL CHRISTIANSON Authorized by: DEL CHRISTIANSON Interpreted by ED attending physician Rhythm: sinus rhythm BPM: 77 Conduction: conduction normal ST Segments: ST segments normal T Waves: T waves normal Clinical impression: abnormal ECG . . Del Christianson MD ED Physician [facility] Emergency Department (Please note that portions of this note have been completed with a voice recognition software. Efforts were made to correct any errors, but occasionally words are mis-transcribed.) Del Christianson MD 01/08/18 0120 EMS reports being called for generalized weakness and hallucinations. Vitals stable. See EMS report Patient denies suicidal/homicidal thoughts at this time. Reports knowing hallucinations are not real. Bed: 10 Expected date: Expected time: Means of arrival: Comments: 28in this encounter FOR RECORDS PERTAINING TO PATIENTS WHO ARE OR HAVE BEEN ENROLLED IN A CHEMICAL DEPENDENCY/SUBSTANCEABUSE PROGRAM, SOME INFORMATION MAY BE OMITTED. This clinical summary was aggregated from multiple sources. Caution should be exercised in using it in the provision of clinical care. This summary normalizes information from multiple sources, and as a consequence, information in this document may materially change the coding, format and clinical context of patient data. In addition, data may be omitted in some cases. CLINICAL DECISIONS SHOULD BE BASED ON THE PRIMARY CLINICAL RECORDS. [employer] provides no warranty or guarantee of the accuracy or completeness of information in this document.
[2023-08-04 09:24] LABS: Mean Corpuscular HGB Conc 31.6 g/dL (29.9-35.2); Mean Corpuscular Hemoglobin 35.8 pg (26.7-34.0); Mean Corpuscular Volume 113.2 fL (81.0-99.0); Platelet Count 47 10^3/uL (150-450); Red Cell Distribution Width 15.8 % (11.0-15.0)
[2023-08-04 09:29] LABS: Hematocrit 21.5 % (36.0-48.0); Hemoglobin 6.8 g/dL (12.0-16.0); White Blood Count 1.2 10^3/uL (4.0-11.0)
[2023-08-04] MEDS: FAMOTIDINE/PF 20 MG/2 ML VIAL IV (09:37)
[2023-08-04] MEDS: ONDANSETRON PF 4 MG/2 ML VIAL IV (09:37)
[2023-08-04] MEDS: 0.9 % SODIUM CHLORIDE 1,000 ML 1000 ML IV (09:37)
[2023-08-04 09:40] LABS: Alanine Aminotransferase 23 U/L (14-59); Albumin Globulin Ratio 0.6; Albumin Level 2.7 g/dL (3.4-5.0); Alkaline Phosphatase 111 U/L (46-116); Anion Gap 13.1; Aspartate Amino Transferase 32 U/L (15-37); BUN Creatinine Ratio 24.8; Bilirubin Total 1.1 mg/dL (0.2-1.0); Calcium 9.1 mg/dL (8.5-10.1); Carbon Dioxide 26.2 mmol/L (21.0-32.0); Chloride 110 mmol/L (98-107); Estimated GFR (African America 56 (>=60); Estimated GFR (Non-African Ame 46 (>=60); Globulin 4.7 g/dL; Glucose 145 mg/dL (74-106); Potassium 4.3 mmol/L (3.5-5.1); Sodium 145 mmol/L (136-145); Total Protein 7.4 g/dL (6.4-8.2)
[2023-08-04 09:42] LABS: Eosinophils Absolute Manual 0.09 10^3/uL (0.00-0.70); Lymphocytes Absolute Manual 0.31 10^3/uL (1.20-3.80); Monocytes Absolute Manual 0.09 10^3/uL (0.30-0.80); Segmented Neut Absolute Manual 0.62 10^3/uL (1.4-6.5); Troponin I High Sensitivity 6.6 pg/mL (4.0-51.3)
[2023-08-04 09:43] LABS: Metamyelocytes Absolute Manual 0.02; Myelocytes Absolute Manual 0.02
[2023-08-04 09:44] LABS: Poikilocytosis 1+
[2023-08-04 09:45] LABS: Anisocytosis 1+; Ovalocytes 1+; Tear Drop Cells 1+
--- NOTE | 2023-08-04 10:52 | ED_ITS ---
HPI - General Adult General Chief complaint: Recheck/Abnormal Lab/Rx Stated complaint: ABNORMAL LAB VALUES Time Seen by Provider: 08/04/23 09:06 Source: patient Mode of arrival: ambulance Limitations: no limitations History of Present Illness HPI narrative: The patient presented to us after she had a blood workup done at the outpatient and her detention facility and it showed that hemoglobin level is low and she would need a blood transfusion, apparently this been a chronic issue for the patient that she have a history of pancytopenia, the patient denies any other complaint other than the nausea and she did denies any chest pain although she mentioned feeling tired and weak, and also having shortness of breath on exertion Related Data Home Medications Medication Instructions Recorded Confirmed acetaminophen 325 mg capsule 650 mg PO Q6H PRN fever or pain 05/20/23 08/04/23 albuterol sulfate 90 mcg/actuation 2 puff inhalation Q4H PRN 05/20/23 08/04/23 aerosol inhaler shortness of breath or wheezing cetylpyridinium chloride 1 hernan mucous membrane .Q6Hrs PRN 05/20/23 08/04/23 sore throat cholecalciferol (vitamin D3) 125 5,000 unit PO QWEEK 05/20/23 08/04/23 mcg (5,000 unit) capsule (D3-5000) docusate sodium 100 mg capsule 100 mg PO DAILY 05/20/23 08/04/23 fluticasone propionate 50 1 spray intranasal DAILY 05/20/23 08/04/23 mcg/actuation nasal spray,suspension lactulose 10 gram/15 mL oral 20 g PO BID 05/20/23 08/04/23 solution (Enulose) loratadine 10 mg chewable tablet 10 mg PO DAILY 05/20/23 08/04/23 magnesium 100 mg capsule 400 mg PO DAILY 05/20/23 08/04/23 midodrine 10 mg tablet 10 mg PO TID 05/20/23 08/04/23 omeprazole 40 mg capsule,delayed 40 mg PO DAILY 05/20/23 08/04/23 release polyethylene glycol 3350 17 17 g PO DAILY 05/20/23 08/04/23 gram/dose oral powder (ClearLax) polyvinyl alcohol 1.4 % eye drops 1 drp ophthalmic (eye) DAILY 05/20/23 08/04/23 (Artificial Tears (polyvinyl alcohol)) potassium chloride 10 mEq 20 meq PO DAILY 05/20/23 08/04/23 tablet,extended release (Klor-Con) rifaximin 550 mg tablet (Xifaxan) 550 mg PO BID 05/20/23 08/04/23 sertraline 25 mg tablet 12.5 mg PO Q24H 05/20/23 08/04/23 trazodone 150 mg tablet 50 mg PO DAILY 05/20/23 08/04/23 ursodiol 250 mg tablet 250 mg PO Q12H 05/20/23 08/04/23 Allergies Allergy/AdvReac Type Severity Reaction Status Date / Time No Known Drug Allergies Allergy Verified 05/20/23 18:30 Review of Systems ROS Status of ROS 10 or more systems reviewed and unremark able except as noted in history and below [facility] Medical History (Updated 08/04/23 @ 10:43 by Neetu Monroe MD) GERD (gastroesophageal reflux disease) ?K21.9 - Gastro-esophageal reflux disease without esophagitis (ICD-10) Hypotension ?I95.9 - Hypotension, unspecified (ICD-10) Protein calorie malnutrition ?E46 - Unspecified protein-calorie malnutrition (ICD-10) Vitamin D deficiency ?E55.9 - Vitamin D deficiency, unspecified (ICD-10) Dry eye syndrome ?H04.129 - Dry eye syndrome of unspecified lacrimal gland (ICD-10) Hernia ?K46.9 - Unspecified abdominal hernia without obstruction or gangrene (ICD- 10) Hyperglycemia ?R73.9 - Hyperglycemia, unspecified (ICD-10) Hyperlipemia ?E78.5 - Hyperlipidemia, unspecified (ICD-10) Hepatic failure ?K72.90 - Hepatic failure, unspecified without coma (ICD-10) Cirrhosis of liver ?K74.60 - Unspecified cirrhosis of liver (ICD-10) Dysthymic disorder ?F34.1 - Dysthymic disorder (ICD-10) Depression ?F32.A - Depression, unspecified (ICD-10) COPD (chronic obstructive pulmonary disease) ?J44.9 - Chronic obstructive pulmonary disease, unspecified (ICD-10) Autoimmune hepatitis ?K75.4 - Autoimmune hepatitis (ICD-10) Social History (Updated 05/20/23 @ 20:55 by Lara Hubbard RN) Within the past year, how often did you have a drink containing alcohol: never Within the past year, how often did you have six or more drinks on one occasion: never Score interpretation: A score less than 3 is consistent with normal alcohol consumption. Smoking status: Former smoker Non-prescribed substance use: denies use Previous occupational history: retired Known occupational exposures/hazards: No Highest level of school completed/degree received: high school graduate Do you want help with school or training: No Are you now , , , , never or living with a partner: never Little interest or pleasure in doing things: not at all Feeling down, depressed, or hopeless: not at all Feel stressed/tense/nervous/anxious/difficulty sleeping: not at all Do you think of yourself as: straight/heterosexual Gender Identity: female Exam Narrative Exam Narrative: Nurses notes and vital signs reviewed and patient is not hypoxic. General: Well-appearing and in no apparent distress. Skin: The patient looked pale and tired No rash. Head: Normocephalic, atraumatic. Neck: Supple, non-tender. Eye: Pupils are equal, round and EOMI. No scleral icterus. Ears, Nose, Mouth, and Throat: TM are clear, no nasal mucosal hypertrophy. Oral mucosa is moist, no posterior oropharynx erythema, uvula is mid-line Cardiovascular: Regular Rate and Rhythm without murmur, gallop or rub. Respiratory: No accessory muscle use or respiratory distress. Lungs are clear to auscultation, no wheezing, rales or rhonchi Chest Wall: no tenderness Back: No midline thoracic or lumbar vertebral tenderness. No CVA tenderness Musculoskeletal: normal ROM, no calf or popliteal tenderness, no lower extremity edema/swelling GI: Abdomen is soft, non-distended. Normal bowel sounds. No masses appreciated. No tenderness to palpation. No rebound, guarding, or rigidity noted. Neurological: A&O x4. No cranial nerve dysfunction observed. No truncal ataxia. Moves all extremities. Sensation intact. Psychiatric: Cooperative and interactive. Normal mood and affect. Constitutional Vital Signs, click to edit/add: Last Vital Signs Temp 97.6 F 08/04/23 08:57 Pulse 67 08/04/23 10:20 Resp 14 08/04/23 09:40 BP 90/58 08/04/23 09:40 Pulse Ox 99 08/04/23 10:20 Course Vital Signs Vital signs: Vital Signs Temperature 97.6 F 08/04/23 08:57 Pulse Rate 70 08/04/23 08:57 Respiratory Rate 18 08/04/23 08:57 Blood Pressure 109/70 08/04/23 08:57 Pulse Oximetry 99 08/04/23 08:57 Temperature 97.6 F 08/04/23 08:57 Pulse Rate 67 08/04/23 10:20 Respiratory Rate 14 08/04/23 09:40 Blood Pressure 90/58 08/04/23 09:40 Pulse Oximetry 99 08/04/23 10:20 Medical Decision Making MDM Narrative Medical decision making narrative: The patient EKG in the ER was showing sinus rhythm with a heart rate of [address] elevation or depression CBC and chemistry confirmed the patient having pancytopenia with hemoglobin of 6.8-type and screen obtained The patient did had some nausea and she was provided with Zofran for that She denies any abdominal pain or any source of infection at the moment Right now the patient blood pressure was in the lower normal she was provided with IV fluid the patient case was discussed with and he agrees on the above- mentioned plan of observation and blood transfusion in the hospital Lab Data Labs: Lab Results 08/04/23 08/04/23 Range/Units 09:09 09:17 WBC 1.2 L* (4.0-11.0) 10^3/uL RBC 1.90 L (4.20-5.40) 10^6/uL Hgb 6.8 L* (12.0-16.0) g/dL Hct 21.5 L* (36.0-48.0) % MCV 113.2 H (81.0-99.0) fL MCH 35.8 H (26.7-34.0) pg MCHC 31.6 (29.9-35.2) g/dL RDW 15.8 H (11.0-15.0) % Plt Count 47 L (150-450) 10^3/uL MPV 11.0 (9.5-13.5) fL Seg Neuts % (Manual) 52.0 Band Neutrophils % 2.0 (0-5) % Lymphocytes % (Manual) 26.0 (20.5-60.0) % Monocytes % (Manual) 8.0 (1.7-12.0) % Eosinophils % (Manual) 8.0 H (0.9-7.0) % Basophils % (Manual) 0.0 L (0.2-2.0) % Metamyelocytes % 2.0 Myelocytes % 2.0 Neutrophils # (Manual) 0.62 L (1.4-6.5) 10^3/uL Band Neutrophils # 0.0 (0.0-0.3) 10^3/uL Lymphocytes # (Manual) 0.31 L (1.20-3.80) 10^3/uL Monocytes # (Manual) 0.09 L (0.30-0.80) 10^3/uL Eosinophils # (Manual) 0.09 (0.00-0.70) 10^3/uL Basophils # (Manual) 0.00 (0.00-0.10) 10^3/uL Metamyelocytes # 0.02 Myelocytes # 0.02 Poikilocytosis 1+ Anisocytosis 1+ Tear Drop Cells 1+ Ovalocytes 1+ Sodium 145 (136-145) mmol/L Potassium 4.3 (3.5-5.1) mmol/L Chloride 110 H (98-107) mmol/L Carbon Dioxide 26.2 (21.0-32.0) mmol/L Anion Gap 13.1 BUN 29.0 H (7.0-18.0) mg/dL Creatinine 1.17 H (0.55-1.02) mg/dL Est GFR ( Amer) 56 L (>=60) Est GFR (Non-Af Amer) 46 L (>=60) BUN/Creatinine Ratio 24.8 Glucose 145 H (74-106) mg/dL Calcium 9.1 (8.5-10.1) mg/dL Total Bilirubin 1.1 H (0.2-1.0) mg/dL AST 32 (15-37) U/L ALT 23 (14-59) U/L Alkaline Phosphatase 111 (46-116) U/L Troponin I High Sens 6.6 (4.0-51.3) pg/mL Total Protein 7.4 (6.4-8.2) g/dL Albumin 2.7 L (3.4-5.0) g/dL Globulin 4.7 g/dL Albumin/Globulin Ratio 0.6 Blood Type A Positive Antibody Screen Negative Discharge Plan Discharge Chief Complaint: Recheck/Abnormal Lab/Rx Clinical Impression: Severe anemia, Pancytopenia Patient Disposition: Admitted as Observation Time of Disposition Decision: 10:43 Condition: Good
--- OUTSIDE RECORDS SUMMARY | 2023-08-04 11:49 | XMS_ITS | CCD ---
Author Name Unknown Address [address] [place] [address] Organization [facility] Care Team Providers Care Motion Picture Film Examiner Name Role Phone KEKE, MICHAEL BRYAN Unavailable Unavailable PEÑA, YOUNG PA Unavailable Unavailable KEKE, MICHAEL BRYAN Unavailable Unavailable PEÑA, YOUNG PA Unavailable Unavailable FANNING, CAESAR E Unavailable Unavailable FANNING, CAESAR E Unavailable Unavailable Peña, Young Mi Unavailable PEÑA, YOUNG PA Unavailable Unavailable NO, PHYSICIAN Unavailable Unavailable PEÑA, YOUNG PA Unavailable Unavailable NO, PHYSICIAN Unavailable Unavailable PEÑA, YOUNG PA Unavailable Unavailable PEÑA, YOUNG PA Unavailable Unavailable PEÑA, YOUNG PA Unavailable Unavailable PEÑA, YOUNG PA Unavailable Unavailable PEÑA, YOUNG PA Unavailable Unavailable NYROMEL, YOANA BOBBY Unavailable Unavailable PEÑA, YOUNG PA Unavailable Unavailable KEKE, MICHAEL BRYAN Unavailable Unavailable KEKE, MICHAEL BRYAN Unavailable Unavailable PEÑA, YOUNG PA Unavailable Unavailable KEKE, MICHAEL BRYAN Unavailable Unavailable KEKE, MICHAEL BRYAN Unavailable Unavailable PEÑA, YOUNG PA Unavailable Unavailable KEKE, MICHAEL BRYAN Unavailable Unavailable REYOANA MOSCOSO P Unavailable Unavailable KEKE, MICHAEL BRYAN Unavailable Unavailable PEÑA, YOUNG PA Unavailable Unavailable PEÑA, YOUNG PA Unavailable Unavailable DEL CHRISTIANSON Unavailable Unavailable Peña, Young Mi Primary Care Provider SHAIKH SAAB Admitting Unavailable DR JAE VERA Consulting Unavailable SHAIKH SAAB Attending Unavailable DR RAMONA PANDEY Consulting Unavailable RUKHSANA ANDRADE Consulting Unavailable SPENCER CATES Consulting Unavailable SHAIKH SAAB Consulting Unavailable Tyler Solis Consulting Unavailable SELF, REFERRED Referring Unavailable SELF, REFERRED Primary Care Unavailable JULIANO LUCAS Attending Unavailable JULIANO LUCAS Admitting Unavailable SELF, REFERRED Referring Unavailable SELF, REFERRED Primary Care Unavailable AL Procedure Practitioner Unavailab le JULIANO LUCAS C [...] 06-24-2017 Chronic Other aftercare (1 source) 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 Office Visiton 12-31-2022 Follow-up visit [id number] Laney Larios 1955 F Date Provider Department Center 12/31/2022 SHO [facility] Family History Problem Relation Age of Onset Colon cancer Neg Hx Family Status - Relation Status Age at Neg Hx Level of Service:38051 AL OFFICE/OUTPATIENT ESTABLISHED HIGH MDM 40-54 MIN Reason for Visit and Comments: Follow-up [900408] - Pt here for follow up to labs and US. Normal [facility] HISTOLOGY - TISSUE EXAMon LAB AP CASE REPORT Normal [facility] Comment on above: Result Comment: Surg ical Pathology Case: [id number] Authorizing Provider: Waylon Cavazos MD Collected: 12/11/2022 1105 Ordering Location: Derik Chisholm [facility] Received: 12/11/2022 1226 [facility] Endoscopy Pathologist: Neetu Fields MD Specimen: Small Intestine, Duodenum, duodenal lesion EMR r/o adenoma Performed By: #### L [id number] ####[facility] ([facility])[address] [place] [address] LAB AP CLINICAL INFORMATION Order Diagnoses Normal 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 S [...] remaining sequential sections Performed By: #### L [id number] ####[facility] ([facility])[address] [facility] [address] LAB AP MICROSCOPIC DESCRIPTION Microscopic examination performed. [facility] Comment on above: Performed By: #### L [id number] ####[facility] ([facility])[address] [place] [address] LAB AP REPORT FINAL DIAGNOSIS NARRATIVE [facility] Comment on above: Result Comment: Duod enum, endoscopic mucosal resection: - Duodenal mucosa with focal gastric foveolar metaplasia. - No malignancy or dysplasia identified Performed By: #### L [id number] ####[facility] ([facility])[address] [place] [address] HPon 12-11-2022 HP History Of Present I [...] MAC Attending Physician: Dr. Ade Tan MD Air And Water Filler: Dr. Elise Coelho MD Procedure Details: Informed [...] assess th (more content not included)... Normal [facility] POCT GLUCOSE METER UNSOLICIT ED RESULTSon 12-11-2022 Glucose [Mass/Vol] 123 mg/dL High 70-105 [facility] Comment on above: Result Comment: ngro [place] Performed By: #### L [id number] ####[facility] ([facility])[address] [place] [address] Prep for Procedureon 023 Prep for Procedure [id number] Laney Larios 1955 Provider Department Center 12/02/2022 WAYLON ZELAYA [facility] Family History Problem Relation Age of Onset Colon cancer Neg Hx Family Status - Relation Status Age at Neg Hx [facility] Office Visiton 11-02-2022 Follow-up visit [id number] Laney Larios 1955 F Provider Department Center 11/02/[address] [facility] Pavi Family History Problem Relation Age of Onset Colon cancer Neg Hx Family Status - Relation Status Age at Neg Hx Level of Service:56777 AL OFFICE/OUTPATIENT ESTABLISHED MOD MDM 30-39 MIN Reason for Visit and Comments: Follow-up [636927] [facility] 29on 10-14-2022 29 Encounter addended b y: Minnie Browne RN on: 10/15/2022 12:52 PM Actions taken: Contacts section saved [facility] HPon 10-14-2022 -------- Attestation signed by Ade [...] female with previous history of Cirrhosis (from [facility]?) complicated with varices s/p banding, last EGD [...] nitrofurantoin monohydrat (more content not included)... Normal [facility] Orders Onlyon 10-14-2022 Orders Only [id number] Laney Larios 1955 Provider Department Center 10/14/2022 ELISE MARES [facility] [place] [facility] Family History Problem Relation Age of Onset Colon cancer Neg Hx Family Status - Relation Status Age at Neg Hx [facility] POCT GLUCOSE METER UNSOLICIT ED RESULTSon 10-14-2022 Glucose [Mass/Vol] 130 mg/dL High 70-105 [facility] Comment on above: Result Comment: jhag eman Performed By: #### L [id number] ####[facility] ([facility])[address] [place] [address] Prep for Procedureon 023 Prep for Procedure [id number] Laney Larios 1955 Provider Department Center 10/01/2022 Francisco-ANGELO LR [facility] [place] Family History Problem Relation Age of Onset Colon cancer Neg Hx Family Status - Relation Status Age at Neg Hx [facility] Documentationon 09-15-2022 Documentation [id number] Laney Larios 1955 Provider Department [place] 09/15/2022 SHO [facility] Family History Problem Relation Age of Onset Colon cancer Neg Hx Family Status - Relation Status Age at Neg Hx Reason for Visit and Comments: Specialty Pharmacy Note [Other] - PA Renewal [facility] Telephoneon 09-15-2022 Telephone [id number] Laney Larios 1955 Provider Department [place] 09/15/2022 SHO [facility] Family History Problem Relation Age of Onset Colon cancer Neg Hx Family Status - Relation Status Age at Neg Hx Normal [facility] Office Visiton 09-09-2022 Follow-up visit [id number] Laney Larios 1955 F Date Provider Department Center 09/09/2022 SHO [facility] Family History Problem Relation Age of Onset Colon cancer Neg Hx Family Status - Relation Status Age at Neg Hx Level of Service:31419 AL OFFICE/OUTPATIENT ESTABLISHED MOD MDM 30-39 MIN Reason for Visit and Comments: Follow-up [167932] [facility] HPon 09-01-2022 HP H&P reviewed. The rukhsana da silva was examined and there are no changes to the H&P. [facility] POCT GLUCOSE METER UNSOLICIT ED RESULTSon 09-01-2022 Glucose [Mass/Vol] 96 mg/dL Normal 70-105 [facility] Comment on above: Result Comment: [email or web address] Performed By: #### L [id number] ####[facility] (AKER)[address] [place] [address] Glucose [Mass/Vol] 94 mg/dL Normal 70-105 [facility] Comment on above: Result Comment: jhag eman Performed By: #### L [id number] ####[facility] ([facility])[address] [place] [address] [id number] 08-26-2022 [id number] Faxed instructions t [facility] attn nursing fax#[phone] Medications to take AM DOS:midodrine sertraline Hold instructions: nsaids x5d NPO after midnight. At least one person needs to accompany you to be your shuttle driver home and stay with you afterwards. Remove jewelry and leave at home DOS. Bring ins card and ID. [facility] Prep for Procedureon 023 Prep for Procedure [id number] Laney Larios 1955 F Date Provider Department Center 08/26/2022 ANGELO TORRES [facility] [place] Family History Problem Relation Age of Onset Colon cancer Neg Hx Family Status - Relation Status Age at Neg Hx [facility] 29on 08-25-2022 29 Encounter addended b y: Ade Tan MD on: 10/19/2022 9:44 AM Actions taken: Order list changed [facility] CBC WITH AUTO DIFFERENTIALon 08-25-2022 Erythrocyte distribution width (RBC) [Ratio] 14.6 % Normal 11.5-15.[address] [facility] Comment on above: Performed By: #### L [id number] ####[facility] ([facility])[address] [place] [address] ERYTHROCYTE MEAN CORPUSCULAR HEMOGLOBIN CONCENTRATION (G/DL) BY AUTOMATED 32.1 g/dL Normal 32.0-35.[address] [facility] Comment on above: Performed By: #### L [id number] ####[facility] [place] [address] Hematocrit (Bld) [Volume fraction] 31.2 % Low 36.0-48.[address] [facility] Comment on above: Performed By: #### L [id number] ####[facility] ([facility] [place] [address] Hemoglobin (Bld) [Mass/Vol] 10.0 g/dL Low 12.0-15.[address] [facility] Comment on above: Performed By: #### L [id number] ####[facility] ([facility])[address] [place] [address] IMMATURE PLATELET FRACTION % 2.6 % Normal 0.8-6.[address] [facility] Comment on above: Performed By: #### L [id number] ####[facility] ([facility])[address] [place] [address] MCH (RBC) [Entitic mass] 35.6 pg High 27.0-33.[address] [facility] Comment on above: Performed By: #### L [id number] ####[facility] ([facility])[address] [place] [address] MCV (RBC) [Entitic vol] 111.0 fL High 82.0-98.[address] [facility] Comment on above: Performed By: #### L [id number] ####[facility] ([facility])[address] [place] [address] NRBC (PER 100 WBCS) BY AUTOMATED COUNT 0.0 % Normal 0.0-0.[address] [facility] Comment on above: Performed By: #### L [id number] ####[facility] [place] [address] PLATELETS (10*3/UL) IN BLOOD AUTOMATED COUNT 49 10*3/uL Low 150-[address] [facility] Comment on above: Performed By: #### L [id number] ####[facility] ([facility])[address] [place] [address] RBC (Bld) [#/Vol] 2.81 10*6/uL Low 3.80-5.00 [facility] Comment on above: Performed By: #### L [id number] ####[facility] ([facility] [place] [address] WBC (Bld) [#/Vol] 2.82 10*3/uL Low 4.00-10.60 [facility] Comment on above: Performed By: #### L [id number] ####[facility] ([facility])[address] [place] [address] HISTOLOGY - TISSUE EXAMon LAB AP CASE REPORT Normal [facility] Comment on above: Result Comment: Surg ical Pathology Case: [id number] Authorizing Provider: Ade Tan MD Collected: 08/25/2022 1129 Ordering Location: [facility] Received: 08/25/2022 [facility] In[facility] Center Endoscopy Pathologist: Akiko Francisco MD Specimen: Small Intestine, Duodenum, DUODENAL NODULES BX R/O ADENOMA Performed By: #### L [id number] ####[facility] [place] [address] LAB AP CLINICAL INFORMATION Order Diagnoses Normal [facility] Comment on above: Result Comment: I85. 00 - Esophageal varices without bleeding, unspecified esophageal varices type (CMS/HCC) [ICD-10-CM] Performed By: #### L [id number] ####[facility] ([facility] [place] [address] LAB AP GROSS DESCRIPTION [facility] Comment on above: Result Comment: A. S mall Intestine, Duodenum. Received in formalin in a container labeled Laney Larios, DUODENAL NODULES BX R/O ADENOMA, is 1 pale-quintana mucosal tissue fragment measuring 0.4 x 0.3 x 0.2 cm. The specimen is submitted entirely in one cassette. Alicia Chin, Student Fellow Performed By: #### L [id number] ####[facility] ([facility])[address] [place] [address] LAB AP MICROSCOPIC DESCRIPTION Microscopic examination performed. [facility] Comment on above: Performed By: #### L [id number] ####[facility] ([facility])[address] [place] [address] LAB AP REPORT FINAL DIAGNOSIS NARRATIVE [facility] Comment on above: Result Comment: A. S mall bowel, duodenal nodule, biopsy: -Duodenal mucosa with gastric foveolar metaplasia. -Negative for dysplasia or malignancy. Amendment electronically signed by Akiko Francisco MD on 08/28/2022 at 12:31 PM Corrected result: Previously reported on 08/26/2022 at 1658 EST. Performed By: #### L [id number] ####[facility] ([facility])[address] [place] [address] MANUAL DIFFERENTIALon 2022 BASOPHILS (10*3/UL) IN BLOOD BY CALCULATION 0.01 10*3/uL Normal [facility] Comment on above: Performed By: #### L [id number] ####[facility] ([facility])[address] [place] [address] BASOPHILS/100 LEUKOCYTES IN BLOOD BY AUTOMATED COUNT 0.4 % Normal 0.0-1.[address] [facility] Comment on above: Performed By: #### L [id number] ####[facility] ([facility])[address] [place] [address] EOSINOPHILS (10*3/UL) IN BLOOD BY CALCULATION 0.07 10*3/uL Normal [facility] Comment on above: Performed By: #### L [id number] ####[facility] ([facility])[address] [place] [address] EOSINOPHILS/100 LEUKOCYTES IN BLOOD BY AUTOMATED COUNT 2.5 % Normal 0.0-6.[address] [facility] Comment on above: Performed By: #### L [id number] ####[facility] ([facility])[address] [place] [address] IMMATURE GRANULOCYTES (10*3/UL) IN BLOOD BY CALCULATION 0.[address] [facility] Comment on above: Performed By: #### L [id number] ####[facility] ([facility])[address] [place] [address] IMMATURE GRANULOCYTES/100 LEUKOCYTES IN BLOOD BY AUTOMATED COUNT 0.4 % Normal 0.0-1.[address] [facility] Comment on above: Performed By: #### L [id number] ####[facility] ([facility])[address] [place] [address] LYMPHOCYTES (10*3/UL) IN BLOOD BY CALCULATION 0.77 10*3/uL Low 1.20-4.[address] [facility] Comment on above: Performed By: #### L [id number] ####[facility] ([facility])[address] [place], [place] [address] LYMPHOCYTES/100 LEUKOCYTES IN BLOOD BY AUTOMATED COUNT 27.3 % Normal 20.0-45.[address] [facility] Comment on above: Performed By: #### L [id number] ####[facility] ([facility])[address] [place] [address] MONOCYTES (10*3/UL) IN BLOOD BY CALCUATION 0.26 10*3/uL Normal [facility] Comment on above: Performed By: #### L [id number] ####[facility] ([facility])[address] [place] [address] MONOCYTES/100 LEUKOCYTES IN BLOOD BY AUTOMATED COUNT 9.2 % Normal 5.0-12.[address] [facility] Comment on above: Performed By: #### L [id number] ####[facility] ([facility])[address] [place] [address] NEUTROPHILS (10*3/UL) IN BLOOD BY CALCULATION 1.7 10*3/uL Normal 1.6-7.[address] [facility] Comment on above: Performed By: #### L [id number] ####[facility] ([facility])[address] [facility] [address] NEUTROPHILS/100 LEUKOCYTES IN BLOOD BY AUTOMATED COUNT 60.2 % Normal 40.0-72.[address] [facility] Comment on above: Performed By: #### L [id number] ####[facility] ([facility])[address] [place] [facility] [address] POCT GLUCOSE METER UNSOLICIT ED RESULTSon 08-25-2022 Glucose [Mass/Vol] 127 mg/dL High 70-105 [facility] Comment on above: Result Comment: dhol as Performed By: #### L [id number] ####[facility] ([facility])[address] [place] [address] PROTIME-INRon 08-25-2022 INR IN PPP BY COAGULATION ASSAY 1.18 High 0.90-1.[address] [facility] Comment on above: Result Comment: ACCC [...] CHEST 1995;108:231S-246S. Performed By: #### L [id number] ####[facility] (ANAI)[address] [place] [address] PROTHROMBIN TIME (PT) IN PPP BY COAGULATION ASSAY 15.0 Seconds High 12.3-14.[address] [facility] Comment on above: Performed By: #### L [id number] ####[facility] ([facility])[address] [place] [address] Telephoneon 08-24-2022 Telephone [id number] Ventura 1955 F [facility] Department [place] 08/24/2022 RACHEL LEONARD [facility] Family History Problem Relation Age of Onset Colon cancer Neg Hx Family Status - Relation Status Age at Neg Hx Normal [facility] Prep for Procedureon 023 Prep for Procedure [id number] LariosLoriLaney 1955 [facility] Department [place] 08/17/2022 MARCELINA VARELA [facility] Family History Problem Relation Age of Onset Colon cancer Neg Hx Family Status - Relation Status Age at Neg Hx Normal [facility] Prep for Procedureon 023 Prep for Procedure [id number] Laney Larios 1955 [facility] Department [place] 08/11/2022 ADE CORDERO [facility] Family History Problem Relation Age of Onset Colon cancer Neg Hx Family Status - Relation Status Age at Neg Hx Normal [facility] Orders Onlyon 07-15-2022 Orders Only [id number] Ventura 1955 [facility] Department [place] 07/15/2022 [id number], HISTORICAL [facility] Family History Problem Relation Age of Onset Colon cancer Neg Hx Family Status - Relation Status Age at Neg Hx Normal [facility] Office Visiton 06-18-2022 Follow-up visit [id number] Ventura 1955 [facility] Department [place] 06/18/2022 137-SHO MILLER [facility] Family History Problem Relation Age of Onset Colon cancer Neg Hx Family Status - Relation Status Age at Neg Hx Level of Service:85014 AL OFFICE/OUTPATIENT ESTABLISHED MOD MDM 30-39 MIN Reason for Visit and Comments: Follow-up [937853] [facility] 36on 05-14-2022 36 2nd attempt to conta ct patient to schedule. Patient unavailable. Unable to contact letter mailed. [facility] 36on 05-13-2022 36 Attempted to reach p atient to schedule follow up. Voicemail not set up. [facility] 36on 05-11-2022 36 Patient calling stat ing that she received a call from you but no message was left. Pt is wanting you to give her a phone call back. [facility] CULTURE URINEon 09-04-2021 CULTURE URINE Isolate 1 [...] F Trimethoprim/Sulfamethoxazol e <=20 S F Normal [facility] Comment on above: Performed By: #### C BC #### [facility] [address] [place] [address] Dr. Ronald Montalvo AMMONIAon 09-03-2021 Ammonia (P) [Moles/Vol] 28 umol/L Normal 10-30 [facility] Comment on above: Performed By: #### A MM #### [facility] [address] [place] [address] Dr. Ronald Montalvo CBC AUTO DIFFon 09-03-2021 BASO # 0.0 103/ul Normal 0.0-0.1 [facility] Comment on above: Performed By: #### C BC #### [facility] [address] [place] [address] Dr. Ronald Montalvo Basophils/100 WBC (Bld) 0.6 % Normal 0.2-2.0 [facility] Comment on above: Performed By: #### C BC #### [facility] [address] [place] [address] Dr. Ronald Montalvo EO # 0.1 103/ul Normal 0.0-0.7 [facility] Comment on above: Performed By: #### C BC #### [facility] [address] [place] [address] Dr. Ronald Montalvo Eosinophils/100 WBC (Bld) 3.3 % Normal 0.9-7.0 [facility] Comment on above: Performed By: #### C BC #### [facility] [address] [place] [address] Dr. Ronald Montalvo Erythrocyte distribution width (RBC) [Ratio] 15.2 % Critically high 11.0-15.0 [facility] Comment on above: Performed By: #### C BC #### [facility] [address] [place] [address] Dr. Ronald Montalvo Hematocrit (Bld) [Volume fraction] 25.2 % Critically low 36.0-48.0 [facility] Comment on above: Performed By: #### C BC #### [facility] [address] [place] [address] Dr. Ronald Montalvo Hemoglobin (Bld) [Mass/Vol] 8.4 g/dL Critically low 12.0-16.0 [facility] Comment on above: Performed By: #### C BC #### [facility] [address] [place] [address] Dr. Ronald Montalvo IG # 0.00 10e3/ul Normal 0.00-0.03 [facility] Comment on above: Performed By: #### C BC #### [facility] [address] [place] [address] Dr. Ronald Montalvo IG % 0.0 % Normal 0.0-0.5 [facility] Comment on above: Performed By: #### C BC #### [facility] [address] [place] [address] Dr. Ronald Montalvo LYMPH # 0.7 103/ul Critically low 1.2-3.8 [facility] Comment on above: Performed By: #### C BC #### [facility] [address] [place] [address] Dr. Ronald Montalvo Lymphocytes/100 WBC (Bld) 38.7 % Normal 20.5-60.0 [facility] Comment on above: Performed By: #### C BC #### [facility] [address] [place] [address] Dr. Ronald Montalvo MANUAL DIFF REQ NO Normal [facility] Comment on above: Performed By: #### C BC #### [facility] [address] [place] [address] Dr. Ronald Montalvo MCH (RBC) [Entitic mass] 38.5 pg Critically high 26.7-34.0 [facility] Comment on above: Performed By: #### C BC #### [facility] [address] [place] [address] Dr. Ronald Montalvo MCHC (RBC) [Mass/Vol] 33.3 g/dL Normal 29.9-35.2 [facility] Comment on above: Performed By: #### C BC #### [facility] [address] [place] [address] Dr. Ronald Montalvo MCV (RBC) [Entitic vol] 115.6 fL Critically high 81.0-99.0 [facility] Comment on above: Performed By: #### C BC #### [facility] [address] [place] [address] Dr. Ronald Montalvo MONO # 0.2 103/ul Critically low 0.3-0.8 [facility] Comment on above: Performed By: #### C BC #### [facility] [address] [place] [address] Dr. Ronald Montalvo Monocytes/100 WBC (Bld) 11.0 % Normal 1.7-12.0 [facility] Comment on above: Performed By: #### C BC #### [facility] [address] [place] [address] Dr. Ronald Montalvo NEUT # 0.8 103/ul Critically low 1.4-6.5 [facility] Comment on above: Performed By: #### C BC #### [facility] [address] [place] [address] Dr. Ronald Montalvo Neutrophils/100 WBC (Bld) 46.4 % Normal 43.0-75.0 [facility] Comment on above: Performed By: #### C BC #### [facility] [address] [place] [address] Dr. Ronald Montalvo Platelet mean volume (Bld) [Entitic vol] 11.6 fL Normal 9.5-13.5 [facility] Comment on above: Performed By: #### C BC #### [facility] [address] [place] [address] Dr. Ronald Montalvo PLT 64 103/ul Critically low 150-450 [facility] Comment on above: Performed By: #### C BC #### [facility] [address] [place] [address] Dr. Ronald Montalvo RBC 2.18 106/ul Critically low 4.20-5.40 [facility] Comment on above: Performed By: #### C BC #### [facility] [address] [place] [address] Dr. Ronald Montalvo WBC 1.8 103/ul Critically low 4.0-11.0 [facility] Comment on above: Performed By: #### C BC #### [facility] [address] [place] [address] Dr. Ronald Montalvo PROF 14(COMP METB)on 022 Albumin [Mass/Vol] 2.9 g/dL Critically low 3.5-5.0 [facility] Comment on above: Performed By: #### C BCMAN #### [facility] [address] [place] [address] Dr. Ronald Montalvo Albumin/Globulin [Mass ratio] 0.8 {ratio} Normal [facility] Comment on above: Performed By: #### C BCMAN #### [facility] [address] [place] [address] Dr. Ronald Montalvo ALP [Catalytic activity/Vol] 89 U/L Normal 38-126 [facility] Comment on above: Performed By: #### C BCSISSY #### [facility] [address] [place] [address] Dr. Ronald Montalvo ALT [Catalytic activity/Vol] 13 U/L Normal 9-52 [facility] Comment on above: Performed By: #### C BCSISSY #### [facility] [address] [address] [address] Ronald Montalvo Anion gap [Moles/Vol] 9.5 mmol/L Normal [facility] Comment on above: Performed By: #### C BCSISSY #### [facility] [address] [address] [address] Ronald Montalvo AST [Catalytic activity/Vol] 20 U/L Normal 14-36 [facility] Comment on above: Performed By: #### C JIL #### [facility] [address] [place] [address] Dr. Ronald Montalvo Bilirubin [Mass/Vol] 1.0 mg/dL Normal 0.2-1.3 [facility] Comment on above: Performed By: #### C BCSISSY #### [facility] [address] [place] [address] Dr. Ronald Montalvo Calcium [Mass/Vol] 9.1 mg/dL Normal 8.4-10.2 [facility] Comment on above: Performed By: #### C JIL #### [facility] [address] [address] [address] Ronald Montalvo Chloride [Moles/Vol] 113 mmol/L Critically high 98-107 [facility] Comment on above: Performed By: #### C BCSISSY #### [facility] [address] [address] [address] Ronald Montalvo CO2 [Moles/Vol] 28.1 mmol/L Normal 22.0-30.[address] [facility] Comment on above: Performed By: #### C JIL #### [facility] [address] [address] [address] Ronald Montalvo Creatinine [Mass/Vol] 1.15 mg/dL Critically high 0.52-1.04 [facility] Comment on above: Performed By: #### C BCMAN #### [facility] [address] [address] [address] Ronald Montalvo EGFR-AF [place]ONG [place]ER 57 mL/min/1.73m2 Critically low >=60 [facility] Comment on above: Performed By: #### C BCMAN #### [facility] [address] [address] [address] Ronald Montalvo EGFR-NON AF [place] 47 mL/min/1.73m2 Critically low >=60 [facility] Comment on above: Performed By: #### C BCMAN #### [facility] [address] [address] [address] Ronald Montalvo Globulin (S) [Mass/Vol] 3.6 g/dL Normal [facility] Comment on above: Performed By: #### C BCMAN #### [facility] [address] [address] [address] Ronald Montalvo Glucose [Mass/Vol] 92 mg/dL Normal 74-106 [facility] Comment on above: Performed By: #### C BCMAN #### [facility] [address] [address] [address] Ronald Montalvo Potassium [Moles/Vol] 3.6 mmol/L Normal 3.4-5.0 [facility] Comment on above: Performed By: #### C BCMAN #### [facility] [address] [address] [address] Ronald Montalvo Protein [Mass/Vol] 6.5 g/dL Normal 6.1-8.2 [facility] Comment on above: Performed By: #### C BCMAN #### [facility] [address] [address] [address] Ronald Montalvo Sodium [Moles/Vol] 147 mmol/L Critically high 137-145 [facility] Comment on above: Performed By: #### C BCMAN #### [facility] [address] [address] [address] Ronald Montalvo Urea nitrogen [Mass/Vol] 16.0 mg/dL Normal 7.0-17.0 [facility] Comment on above: Performed By: #### C BCMAN #### [facility] [address] [place] [address] Dr. Ronald Montalvo Urea nitrogen/Creatinin e [Mass ratio] 13.9 mg/mg Normal [facility] Comment on above: Performed By: #### C BCMAN #### [facility] [address] [place] [address] Dr. Ronald Montalvo AMMONIAon 09-02-2021 Ammonia (P) [Moles/Vol] 71 umol/L Critically high 10-30 [facility] Comment on above: Result Comment: test repeated Performed By: #### C BC #### [facility] [address] [place] [address] Dr. Ronald Montalvo CBC AUTO DIFFon 09-02-2021 BASO # 0.0 103/ul Normal 0.0-0.1 [facility] Comment on above: Performed By: #### C BC #### [facility] [address] [place] [address] Dr. Ronald Montalvo Basophils/100 WBC (Bld) 0.0 % Critically low 0.2-2.0 [facility] Comment on above: Performed By: #### C BC #### [facility] [address] [place] [address] Dr. Ronald Montalvo EO # 0.0 103/ul Normal 0.0-0.7 [facility] Comment on above: Performed By: #### C BC #### [facility] [address] [place] [address] Dr. Ronald Montalvo Eosinophils/100 WBC (Bld) 3.1 % Normal 0.9-7.0 [facility] Comment on above: Performed By: #### C BC #### [facility] [address] [place] [address] Dr. Ronald Montalvo Erythrocyte distribution width (RBC) [Ratio] 15.1 % Critically high 11.0-15.0 [facility] Comment on above: Performed By: #### C BC #### [facility] [address] [place] [address] Dr. Ronald Montalvo Hematocrit (Bld) [Volume fraction] 24.5 % Critically low 36.0-48.0 [facility] Comment on above: Performed By: #### C BC #### [facility] [address] [place] [address] Dr. Ronald Montalvo Hemoglobin (Bld) [Mass/Vol] 8.0 g/dL Critically low 12.0-16.0 [facility] Comment on above: Performed By: #### C BC #### [facility] [address] [address] [address] Ronald Montalvo IG # 0.00 10e3/ul Normal 0.00-0.03 [facility] Comment on above: Performed By: #### C BC #### [facility] [address] [place] [address] Dr. Ronald Montalvo IG % 0.0 % Normal 0.0-0.5 [facility] Comment on above: Performed By: #### C BC #### [facility] [address] [place] [address] Dr. Ronald Montalvo LYMPH # 0.6 103/ul Critically low 1.2-3.8 [facility] Comment on above: Performed By: #### C BC #### [facility] [address] [place] [address] Dr. Ronald Montalvo Lymphocytes/100 WBC (Bld) 47.3 % Normal 20.5-60.0 [facility] Comment on above: Performed By: #### C BC #### [facility] [address] [place] [address] Dr. Ronald Montalvo MANUAL DIFF REQ NO Normal [facility] Comment on above: Performed By: #### C BC #### [facility] [address] [place] [address] Dr. Ronald Montalvo MCH (RBC) [Entitic mass] 38.6 pg Critically high 26.7-34.0 [facility] Comment on above: Performed By: #### C BC #### [facility] [address] [place] [address] Dr. Ronald Montalvo MCHC (RBC) [Mass/Vol] 32.7 g/dL Normal 29.9-35.2 [facility] Comment on above: Performed By: #### C BC #### [facility] [address] [place] [address] Dr. Ronald Montalvo MCV (RBC) [Entitic vol] 118.4 fL Critically high 81.0-99.0 [facility] Comment on above: Performed By: #### C BC #### [facility] [address] [place] [address] Dr. Ronald Montalvo MONO # 0.2 103/ul Critically low 0.3-0.8 [facility] Comment on above: Performed By: #### C BC #### [facility] [address] [place] [address] Dr. Ronald Montalvo Monocytes/100 WBC (Bld) 12.4 % Critically high 1.7-12.0 [facility] Comment on above: Performed By: #### C BC #### [facility] [address] [place] [address] Dr. Ronald Montalvo NEUT # 0.5 103/ul Critically low 1.4-6.5 [facility] Comment on above: Performed By: #### C BC #### [facility] [address] [place] [address] Dr. Ronald Montalvo Neutrophils/100 WBC (Bld) 37.2 % Critically low 43.0-75.0 [facility] Comment on above: Performed By: #### C BC #### [facility] [address] [place] [address] Dr. Ronald Montalvo Platelet mean volume (Bld) [Entitic vol] 10.3 fL Normal 9.5-13.5 [facility] Comment on above: Performed By: #### C BC #### [facility] [address] [place] [address] Dr. Ronald Montalvo PLT 38 103/ul Critically low 150-450 [facility] Comment on above: Performed By: #### C BC #### [facility] [address] [place] [address] Dr. Ronald Montalvo RBC 2.07 106/ul Critically low 4.20-5.40 [facility] Comment on above: Performed By: #### C BC #### [facility] [address] [place] [address] Dr. Ronald Montalvo WBC 1.5 103/ul Critically low 4.0-11.0 [facility] Comment on above: Performed By: #### C BC #### [facility] [address] [place] [address] Dr. Ronald Montalvo CULTURE BLOODon 09-02-2021 Microscopic examination of blood, culture Culture Observations: No growth at 5 days. [facility] Comment on above: Performed By: #### C BC #### [facility] [address] [place] [address] Dr. Ronald Montalvo Microscopic examination of blood, culture Culture Observations: No growth at 5 days. Normal [facility] Comment on above: Performed By: #### C BC #### [facility] [address] [place] [address] Dr. Ronald Montalvo PROF 14(COMP METB)on 022 Albumin [Mass/Vol] 2.8 g/dL Critically low 3.5-5.0 [facility] Comment on above: Performed By: #### C MP #### [facility] [address] [place] [address] Dr. Ronald Montalvo Albumin/Globulin [Mass ratio] 0.8 {ratio} [facility] Comment on above: Performed By: #### C MP #### [facility] [address] [place] [address] Dr. Ronald Montalvo ALP [Catalytic activity/Vol] 88 U/L Normal 38-126 [facility] Comment on above: Performed By: #### C MP #### [facility] [address] [place] [address] Dr. Ronald Montalvo ALT [Catalytic activity/Vol] 10 U/L Normal 9-52 [facility] Comment on above: Performed By: #### C MP #### [facility] [address] [place] [address] Dr. Ronald Montalvo Anion gap [Moles/Vol] 6.7 mmol/L Normal [facility] Comment on above: Performed By: #### C MP #### [facility] [address] [address] [address] Ronald Montalvo AST [Catalytic activity/Vol] 20 U/L Normal 14-36 [facility] Comment on above: Performed By: #### C MP #### [facility] [address] [address] [address] Ronald Montalvo Bilirubin [Mass/Vol] 1.3 mg/dL Normal 0.2-1.3 [facility] Comment on above: Performed By: #### C MP #### [facility] [address] [place] [address] Dr. Ronald Montalvo Calcium [Mass/Vol] 8.7 mg/dL Normal 8.4-10.2 [facility] Comment on above: Performed By: #### C MP #### [facility] [address] [address] [address] Ronald Montalvo Chloride [Moles/Vol] 111 mmol/L Critically high 98-107 [facility] Comment on above: Performed By: #### C MP #### [facility] [address] [address] [address] Ronald Montalvo CO2 [Moles/Vol] 30.5 mmol/L Critically high 22.0-30.0 [facility] Comment on above: Performed By: #### C MP #### [facility] [address] [address] [address] Ronald Montalvo Creatinine [Mass/Vol] 1.03 mg/dL Normal 0.52-1.04 [facility] Comment on above: Performed By: #### C MP #### [facility] [address] [address] [address] Ronald Montalvo EGFR-AF [place]ER >60 Normal >=[address] [facility] Comment on above: Performed By: #### C MP #### [facility] [address] [address] [address] Ronald Montalvo EGFR-NON AF [place] 54 mL/min/1.73m2 Critically low >=60 [facility] Comment on above: Performed By: #### C MP #### [facility] [address] [address] [address] Ronald Montalvo Globulin (S) [Mass/Vol] 3.7 g/dL Normal [facility] Comment on above: Performed By: #### C MP #### [facility] [address] [address] [address] Ronald Montalvo Glucose [Mass/Vol] 103 mg/dL Normal 74-106 [facility] Comment on above: Performed By: #### C MP #### [facility] [address] [address] [address] Ronald Montalvo Potassium [Moles/Vol] 4.2 mmol/L Normal 3.4-5.0 [facility] Comment on above: Performed By: #### C MP #### [facility] [address] [address] [address] Ronald Montalvo Protein [Mass/Vol] 6.5 g/dL Normal 6.1-8.2 [facility] Comment on above: Performed By: #### C MP #### [facility] [address] [address] [address] Ronald Montalvo Sodium [Moles/Vol] 144 mmol/L Normal 137-145 [facility] Comment on above: Performed By: #### C MP #### [facility] [address] [address] [address] Ronald Montalvo Urea nitrogen [Mass/Vol] 17.0 mg/dL Normal 7.0-17.0 [facility] Comment on above: Performed By: #### C MP #### [facility] [address] [address] [address] Ronald Montalvo Urea nitrogen/Creatinin e [Mass ratio] 16.5 mg/mg Normal [facility] Comment on above: Performed By: #### C MP #### [facility] [address] [address] [address] Ronald Montalvo PROTIMEon 09-02-2021 INR Coag (PPP) [Relative time] 1.06 {INR} Normal [facility] Comment on above: Performed By: #### P TT, PT #### [facility] [address] [address] [address] Ronald Montalvo INR GUIDELINES SEE BELOW Normal [facility] Comment on above: Result Comment: HELADIO RED INR: 2.0 - 3.0 CONDITIONS NOT LISTED BELOW 2.5 - 3.5 FOR PROSTHETIC HEART VALVE REPLACEMENT 2.5 - 3.5 RECURRENT THROMBOSIS Performed By: #### P TT, PT #### [facility] [address] [address] [address] Ronald Montalvo PT Coag (PPP) [Time] 11.4 s Normal 9.0-11.6 [facility] Comment on above: Performed By: #### P TT, PT #### [facility] [address] [place] [address] Dr. Ronald Montalvo PTTon 09-02-2021 aPTT Coag (Bld) [Time] 24.3 s Normal 22.3-36.2 [facility] Comment on above: Performed By: #### P TT, PT #### [facility] [address] [place] [address] Dr. Ronald Montalvo US SINGLE QUAD RT [...] by: JAE Neves: 2021-09-02 12:20 Normal [facility] AMMONIAon 09-01-2021 Ammonia (P) [Moles/Vol] 107 umol/L Critically high 10-30 [facility] Comment on above: Result Comment: test repeated Performed By: #### A MM #### [facility] [address] [place] [address] Dr. Ronald Montalvo CARDIAC JACKIE ADMITon 022 CK [Catalytic activity/Vol] 35 U/L Normal 30-135 [facility] Comment on above: Performed By: #### C MADM #### [facility] [address] [place] [address] Dr. Ronald Montalvo CK.MB [Mass/Vol] 0.57 ng/mL Normal <=2.[address] [facility] Comment on above: Performed By: #### C SEPIDEHM #### [facility] [address] [place] [address] Dr. Ronald Montalvo HSTROP 5.7 pg/mL Normal 4.0-35.5 [facility] Comment on above: Result Comment: CUT- OFF POINTS HAVE BEEN ESTABLISHED BASED ON THE FOURTH UNIVERSAL DEFINITIONS OF MYOCARDIAL INFARCTION. THE UPPER REFERENCE LIMIT (URL) OF TROPONIN, DEFINED THE 99TH PERCENTILE OF cTnI DISTRIBUTION IN A REFERENCE POPULATION, HAS BEEN CONFIRMED THE DECISION THRESHOLD FOR PA DIAGNOSIS. Performed By: #### C MADM #### [facility] [address] [place] [address] Dr. Ronald Montalvo TAMI 35.0 ng/mL Normal <=61.5 [facility] Comment on above: Performed By: #### C MADM #### [facility] [address] [place] [address] Dr. Ronald Montalvo CBC W MANUAL DIFFon 09-01-19 22 ANISOCYTOSIS 1+ Normal [facility] Comment on above: Performed By: #### C BCMAN #### [facility] [address] [place] [address] Dr. Ronald Montalvo ATYPICAL LYMPH # Normal [facility] Comment on above: Performed By: #### C BCMAN #### [facility] [address] [place] [address] Dr. Ronald Montalvo ATYPICAL LYMPH % Normal [facility] Comment on above: Performed By: #### C BCMAN #### [facility] [address] [place] [address] Dr. Ronald Montalvo BAND # 0.0 103/ul Normal 0.0-0.3 [facility] Comment on above: Performed By: #### C BCMAN #### [facility] [address] [place] [address] Dr. Ronald Montalvo BAND % 2 % Normal 0-5 [facility] Comment on above: Performed By: #### C BCMAN #### [facility] [address] [place] [address] Dr. Ronald Montalvo BASOM # 0.00 103/ul Normal 0.00-0.10 [facility] Comment on above: Performed By: #### C BCMAN #### [facility] [address] [place] [address] Dr. Ronald Montalvo BASOM % 0.0 % Critically low 0.2-2.0 [facility] Comment on above: Performed By: #### C BCMAN #### [facility] [address] [place] [address] Dr. Ronald Montalvo BLAST # Normal [facility] Comment on above: Performed By: #### C BCSISSY #### [facility] [address] [place] [address] Dr. Ronald Montalvo BLAST % Normal [facility] Comment on above: Performed By: #### C BCSISSY #### [facility] [address] [place] [address] Dr. Ronald Montalvo CORRECTED WBC Normal 4.0-11.0 [facility] Comment on above: Performed By: #### C BCMAN #### [facility] [address] [place] [address] Dr. Ronald Montalvo EOS # 0.02 103/ul Normal 0.00-0.70 [facility] Comment on above: Performed By: #### C BCMAN #### [facility] [address] [place] [address] Dr. Ronald Montalvo EOS% 1.0 % Normal 0.9-7.0 [facility] [place] Comment on above: Performed By: #### C JIL #### [facility] [address] [place] [address] Dr. Ronald Montalvo HCT 27.7 % Critically low 36.0-48.0 [facility] Comment on above: Performed By: #### C JIL #### [facility] [address] [place] [address] Dr. Ronald Montalvo HGB 9.2 g/dl Critically low 12.0-16.0 [facility] Comment on above: Performed By: #### C JIL #### [facility] [address] [place] [address] Dr. Ronald Montalvo LYMPHM # 0.59 103/ul Critically low 1.20-3.80 [facility] Comment on above: Performed By: #### C JIL #### [facility] [address] [place] [address] Dr. Ronald Montalvo LYMPHM% 37.0 % Normal 20.5-60.0 [facility] [place] Comment on above: Performed By: #### C JIL #### [facility] [address] [place] [address] Dr. Ronald Montalvo MACROCYTOSIS 2+ Normal [facility] Comment on above: Performed By: #### C JIL #### [facility] [address] [place] [address] Dr. Ronald Montalvo MCH 38.8 pg Critically high 26.7-34.0 [facility] Comment on above: Performed By: #### C JIL #### [facility] [address] [place] [address] Dr. Ronald Montalvo MCHC 33.2 g/dl Normal 29.9-35.2 [facility] Comment on above: Performed By: #### C BCSISSY #### [facility] [address] [place] [address] Dr. Ronald Montalvo MCV 116.9 fL Critically high 81.0-99.0 [facility] Comment on above: Performed By: #### C JIL #### [facility] [address] [place] [address] Dr. Ronald Montalvo METAMYELOCYTE # Normal [facility] Comment on above: Performed By: #### C JIL #### [facility] [address] [place] [address] Dr. Ronald Montalvo METAMYELOCYTE % Normal [facility] Comment on above: Performed By: #### C JIL #### [facility] [address] [place] [address] Dr. Ronald Montalvo MONOM# 0.13 103/ul Critically low 0.30-0.80 [facility] Comment on above: Performed By: #### C JIL #### [facility] [address] [place] [address] Dr. Ronald Montalvo MONOM% 8.0 % Normal 1.7-12.0 [facility] [place] Comment on above: Performed By: #### Wilda LEY #### [facility] [address] [place] [address] Dr. Ronald Montalvo MPV 10.6 fL Normal 9.5-13.5 [facility] [place] Comment on above: Performed By: #### Wilda LEY #### [facility] [address] [place] [address] Dr. Ronald Montalvo MYELOCYTE # Normal [facility] [place] Comment on above: Performed By: #### Wilda LEY #### [facility] [address] [place] [address] Dr. Ronald Montalvo MYELOCYTE % Normal [facility] Comment on above: Performed By: #### Wilda LEY #### [facility] [address] [place] [address] Dr. Ronald Montalvo NRBC Normal [facility] [place] Comment on above: Performed By: #### C JIL #### [facility] [address] [place] [address] Dr. Ronald Montalvo PLT 43 103/ul Critically low 150-450 [facility] Comment on above: Performed By: #### C JIL #### [facility] [address] [place] [address] Dr. Ronald Montalvo RBC 2.37 106/ul Critically low 4.20-5.40 [facility] Comment on above: Performed By: #### C JIL #### [facility] [address] [address] [address] Ronald Montalvo RDW 15.2 % Critically high 11.0-15.0 [facility] Comment on above: Performed By: #### C JIL #### [facility] [address] [address] [address] Ronald Montalvo SEG # 0.83 103/ul Critically low 1.40-6.50 [facility] Comment on above: Performed By: #### C JIL #### [facility] [address] [address] [address] Ronald Montalvo SEG % 52.0 % Normal 43.0-75.0 [facility] [place] Comment on above: Performed By: #### Wilda LEY #### [facility] [address] [address] [address] Ronald Montalvo WBC 1.6 103/ul Critically low 4.0-11.0 [facility] Comment on above: Performed By: #### Wilda LEY #### [facility] [address] [address] [address] STROKE HEAD WOon [...] TYLER SOLIS Date: 2021-09-01 20:14 Normal [facility] SARS-CoV-2 (COVID-19) RNA KORY+probe Ql (Unsp spec) Not detected Normal NOT DETECTED [facility] Comment on above: Result Comment: When [...] for this test is supported by the [place] of Health and Human Service's declaration that [...] used). Performed By: #### C BCMAN #### [facility] [address] [place] [address] Dr. Ronald Montalvo ER URINE PROFILEon 2 Bilirubin Ql (U) Negative Normal NEGATIVE The [facility] Comment on above: Performed By: #### C BC #### [facility] [address] [place] [address] Dr. Ronald Montalvo Clarity (U) CLEAR Normal CLEAR [facility] [place] Comment on above: Performed By: #### C BC #### [facility] [address] [place] [address] Dr. Ronald Montalvo Color (U) YELLOW Normal YELLOW [facility] [place] Comment on above: Performed By: #### C BC #### [facility] [address] [place] [address] Dr. Ronald Montalvo ERUAHD A micrscopic examina tion will be performed if indicated. Normal [facility] Comment on above: Performed By: #### C BC #### [facility] [address] [place] [address] Dr. Ronald Montalvo Glucose Ql (U) Negative Normal NEGATIVE [facility] Comment on above: Performed By: #### C BC #### [facility] [address] [address] [address] Ronald Montalvo Hemoglobin Ql (U) Negative Normal NEGATIVE [facility] Comment on above: Performed By: #### C BC #### [facility] [address] [place] [address] Dr. Ronald Montalvo Ketones Ql (U) TRACE Abnormal NEGATIVE [facility] Comment on above: Performed By: #### C BC #### [facility] [address] [place] [address] Dr. Ronald Montalvo LEUKOCYTES Negative Normal NEGATIVE [facility] [place] Comment on above: Performed By: #### C BC #### [facility] [address] [place] [address] Dr. Ronald Montalvo Nitrite Ql (U) Negative Normal NEGATIVE [facility] Comment on above: Performed By: #### C BC #### [facility] [address] [place] [address] Dr. Ronald Montalvo pH (U) 6.0 [pH] Normal 5-9 [facility] [place] Comment on above: Performed By: #### C BC #### [facility] [address] [place] [address] Dr. Ronald Montalvo SPEC GRAVITY 1.025 Normal 1.005-<=1.0 25 [facility] [place] Comment on above: Performed By: #### C BC #### [facility] [address] [place] [address] Dr. Ronald Montalvo UA PROTEIN Negative Normal NEGATIVE/ TRACE [facility] Comment on above: Performed By: #### C BC #### [facility] [address] [place] [address] Dr. Ronald Montalvo UR MICRO IND NOT INDICATED Normal [facility] Comment on above: Performed By: #### C BC #### [facility] [address] [place] [address] Dr. Ronald Montalvo Urobilinogen Qn (U) 1.0 {Yanick'U}/dL Normal 0.2 - 1.0 [facility] [place] Comment on above: Performed By: #### C BC #### [facility] [address] [place] [address] Dr. Ronald Montalvo LACTATE/LACTIC ACIDon 2021 Lactate [Moles/Vol] 1.1 mmol/L Normal 0.7-2.0 [facility] [place] Comment on above: Performed By: #### C BC #### [facility] [address] [place] [address] Dr. Ronald Montalvo PROF 14(COMP METB)on 022 Albumin [Mass/Vol] 3.2 g/dL Critically low 3.5-5.0 Th e [facility] Comment on above: Performed By: #### C MP #### [facility] [address] [place] [address] Dr. Ronald Montalvo Albumin/Globulin [Mass ratio] 0.8 {ratio} Normal [facility] [place] Comment on above: Performed By: #### C MP #### [facility] [address] [place] [address] Dr. Ronald Montalvo ALP [Catalytic activity/Vol] 97 U/L Normal 38-126 [facility] [place] Comment on above: Performed By: #### C MP #### [facility] [address] [place] [address] Dr. Ronald Montalvo ALT [Catalytic activity/Vol] 10 U/L Normal 9-52 [facility] [place] Comment on above: Performed By: #### C MP #### [facility] [address] [place] [address] Dr. Ronald Montalvo Anion gap [Moles/Vol] 10.7 mmol/L Normal [facility] [place] Comment on above: Performed By: #### C MP #### [facility] [address] [place] [address] Dr. Ronald Montalvo AST [Catalytic activity/Vol] 21 U/L Normal 14-36 [facility] [place] Comment on above: Performed By: #### C MP #### [facility] [address] [address] [address] Ronald Montalvo Bilirubin [Mass/Vol] 1.5 mg/dL Critically high 0.2-1.3 [facility] Comment on above: Performed By: #### C MP #### [facility] [address] [address] [address] Ronald Montalvo Calcium [Mass/Vol] 8.9 mg/dL Normal 8.4-10.2 [facility] Comment on above: Performed By: #### C MP #### [facility] [address] [address] [address] Ronald Montalvo Chloride [Moles/Vol] 108 mmol/L Critically high 98-107 [facility] [place] Comment on above: Performed By: #### C MP #### [facility] [address] [address] [address] Ronald Montalvo CO2 [Moles/Vol] 26.8 mmol/L Normal 22.0-30.0 [facility] Comment on above: Performed By: #### C MP #### [facility] [address] [address] [address] Ronald Montalvo Creatinine [Mass/Vol] 1.13 mg/dL Critically high 0.52-1.04 [facility] [place] Comment on above: Performed By: #### C MP #### [facility] [address] [address] [address] Ronald Montalvo EGFR-AF [place]ONG [place]ER 59 mL/min/1.73m2 Critically low >=60 [facility] Comment on above: Performed By: #### C MP #### [facility] [address] [address] [address] Ronald Montalvo EGFR-NON AF [place] 48 mL/min/1.73m2 Critically low >=60 [facility] [place] Comment on above: Performed By: #### C MP #### [facility] [address] [address] [address] Ronald Montalvo Globulin (S) [Mass/Vol] 4.1 g/dL Normal [facility] [place] Comment on above: Performed By: #### C MP #### [facility] [address] [address] [address] Ronald Montalvo Glucose [Mass/Vol] 131 mg/dL Critically high 74-106 [facility] Comment on above: Performed By: #### C MP #### [facility] [address] [address] [address] Ronald Montalvo Potassium [Moles/Vol] 4.5 mmol/L Normal 3.4-5.0 [facility] [place] Comment on above: Performed By: #### C MP #### [facility] [address] [address] [address] Ronald Montalvo Protein [Mass/Vol] 7.3 g/dL Normal 6.1-8.2 [facility] Comment on above: Performed By: #### C MP #### [facility] [address] [address] [address] Ronald Montalvo Sodium [Moles/Vol] 141 mmol/L Normal 137-145 [facility] Comment on above: Performed By: #### C MP #### [facility] [address] [address] [address] Ronald Montalvo Urea nitrogen [Mass/Vol] 18.0 mg/dL Critically high 7.0-17.0 [facility] [place] Comment on above: Performed By: #### C MP #### [facility] [address] [address] [address] Ronald Montalvo Urea nitrogen/Creatinin e [Mass ratio] 15.9 mg/mg Normal [facility] [place] Comment on above: Performed By: #### C MP #### [facility] [address] [address] [address] Ronald Montalvo PROTIMEon 09-01-2021 INR Coag (PPP) [Relative time] 1.06 {INR} Normal [facility] [place] Comment on above: Performed By: #### C BC #### [facility] [address] [address] [address] Ronald Montalvo INR GUIDELINES SEE BELOW Normal [facility] Comment on above: Result Comment: HELADIO RED INR: 2.0 - 3.0 CONDITIONS NOT LISTED BELOW 2.5 - 3.5 FOR PROSTHETIC HEART VALVE REPLACEMENT 2.5 - 3.5 RECURRENT THROMBOSIS Performed By: #### C BC #### [facility] [address] [place], [place] [address] Dr. Ronald Montalvo PT Coag (PPP) [Time] 11.4 s Normal 9.0-11.6 [facility] [place] Comment on above: Performed By: #### C BC #### [facility] [address] [place], [place] [address] Dr. Ronald Montalvo PTTon 09-01-2021 aPTT Coag (Bld) [Time] 24.5 s Normal 22.3-36.2 [facility] [place] Comment on above: Performed By: #### C BC #### [facility] [address] [address] [address] Ronald Montalvo Endoscopy Reporton 1 Endoscopy Report MR#: [id number] [facility] Pt. Name: Laney Larios Surgery Date: [...] Lucas M.D. Date Trans: 06/27/2021 04:11 A/mmo [id number] Normal The [facility] POC GLUCOSE LABon 06-26-2021 Glucose [Mass/Vol] 106 mg/dL High 70-[address] [facility] Comment on above: Performed By: #### [id number] #### [facility] [address] Endoscopy Reporton Endoscopy Report MR#: [id number] [facility] Pt. Name: Laney Larios Surgery Date: [...] Le, DO Date Trans: 03/25/2021 06:50 A/mmo [id number] Normal The [facility] Alcohol, Medicalon 8 Ethanol mg/dL Invalid Interpretation Code <3.00 mg/dL [facility] Comment on above: Alcohol cutoff: <3.0 0 mg/dL = None Detected Ammoniaon 01-08-2018 Ammonia 135 micromol/L High 12 - 47 [facility] Blood Gas, Venouson 01-09-20 18 Base Excess, Homar 0.0 1 Invalid Interpretation Code -2.0 - 2.0 [facility] Bicarbonate (HCO3) 24.3 mmol/L Invalid Interpretation Code 24 - 28 mmol/L [facility] CO2 40.2 mm Hg Low 41.0 - 51.0 [facility] Hematocrit (HCT) 29.5 % Low 36 - 46 % [facility] Hemoglobin mass conc (Bld) 9.5 g/dL Low 12 - 16 g/dL [facility] Interpretation and review of laboratory results Abnormal Invalid Interpretation Code [facility] O2 saturation 47.2 % Invalid Interpretation Code [facility] pH, Venous 7.40 1 Invalid Interpretation Code 7.32 - 7.42 [facility] pO2, Homar 28 mm Hg Invalid Interpretation Code 25 - 40 [facility] CBC Auto Differentialon 12-12 Basophils Auto #/vol (Bld) 0.03 K/mcL Invalid Interpretation Code 0.00 - 0.30 [facility] Basophils/100 WBC Auto (Bld) 0.6 % Invalid Interpretation Code [facility] Eosinophils 0.13 K/mcL Invalid Interpretation Code 0.00 - 0.50 [facility] Eosinophils/100 leukocytes 2.8 % Invalid Interpretation Code [facility] Erythrocyte distribution width Auto Entitic volume (RBC) 14.9 % High 11.6 - 14.8 % [facility] Erythrocytes (RBC) 2.72 M/mcL Low 4.00 - 5.20 [facility] Hematocrit (HCT) 27.9 % Low 36 - 46 % [facility] Hemoglobin mass conc (Bld) 9.4 g/dL Low 12 - 16 g/dL [facility] Immature granulocytes #/vol (Bld) 0.01 K/mcL Invalid Interpretation Code 0.00 - 0.30 [facility] Immature granulocytes/100 WBC (Bld) 0.20 % Invalid Interpretation Code [facility] Comment on above: The IG parameter is the percentage of metamyelocytes, myelocytes, and promyelocytes. Lymphocytes 1.72 K/mcL Invalid Interpretation Code 0.90 - 4.00 [facility] Lymphocytes/100 leukocytes 37.1 % Invalid Interpretation Code [facility] MCH 34.6 pg High 26 - 34 pg [facility] MCHC mass conc (RBC) 33.7 g/dL Invalid Interpretation Code 31 - 37 g/dL [facility] MCV 102.6 fL High 80 - 100 fL [facility] Monocytes 0.35 K/mcL Invalid Interpretation Code 0.30 - 0.90 [facility] Monocytes/100 leukocytes 7.6 % Invalid Interpretation Code [facility] Neutrophils 2.39 K/mcL Invalid Interpretation Code 1.70 - 7.00 [facility] Neutrophils/100 WBC Auto (Bld) 51.7 % Invalid Interpretation Code [facility] Nucleated erythrocytes 0.00 K/mcL Invalid Interpretation Code 0.00 - 0.00 [facility] Nucleated erythrocytes/100 erythrocytes 0.0 % Invalid Interpretation Code [facility] Platelet mean volume (PMV) 9.5 fL Invalid Interpretation Code 9 - 15.5 fL [facility] Platelets 142 K/mcL Low 150 - 400 [facility] WBC (Leukocytes) 4.63 K/mcL Invalid Interpretation Code 4.50 - 11.00 [facility] CBC w/ Diffon 01-08-2018 Creatinine The following orders were created for panel order CBC w/ Diff. Procedure Abnormality Status --------- ------ CBC Auto Differential[[id number]] Abnormal Final result Please view results for these tests on the individual orders. Invalid Interpretation Code [facility] CT ABDOMEN PELVIS WITH IV [...] HypokalemiaCOMPARISON:CT of the abdomen and pelvis from [facility] 05/02/2015.TECHNIQUE:CT examination of the abdomen and pelvis [...] of the wall of the ascending and ctpmpwxh-rt-npm transverse colon which may be related to [...] morphology of the liver with splenomegaly and uesep-ws-lhossicn volume of predominantly upper abdominal ascites and stigmata of portal hypertension, similar in appearance to the prior examination. Pneumobilia and prior cholecystectomy, as before.2. There is thickening of the wall of the ascending and uiukqawn-jc-udr transverse colon which may be related to [...] with grade 1 anterolisthesis of L5 on S1.[facility]/Sky Ridge Medical Centerstation ID: [id number] by: SHADE MANCERA on [facility] Jan 08, 2018 1:03:05 AM EDTTranscribed by: LON WILD on [facility] Jan 08, 2018 1:14:48 AM EDTFinalized by: SHADE MANCERA on [facility] Jan 08, 2018 3:58:36 AM EDT Normal [facility] Comment on above: Order Comment: Reaso [...] CT of the abdomen and pelvis from [facility] 05/02/2015. TECHNIQUE: CT examination of the abdomen [...] of the wall of the ascending and xnvtevaa-mp-lgi transverse colon which may be related to [...] Bilateral L5 pars defects. Invalid Interpretation Code [facility] CT Abdomen Pelvis With IV Contrast Only 1. Cirrhotic morphology of the liver with splenomegaly and crhhh-no-jsdlryen volume of predominantly upper abdominal ascites and stigmata of portal hypertension, similar in appearance to the prior examination. Pneumobilia and prior cholecystectomy, as before. 2. There is thickening of the wall of the ascending and jffgjrlc-yv-lcl transverse colon which may be related to [...] grade 1 anterolisthesis of L5 on S1. [facility]/vrs Workstation ID: [id number] Invalid Interpretation Code [employer] [facility] CT Abdomen Pelvis With IV Contrast Only Interface, Rad In [employer] - 01/08/2018 4:01 AM EDT EXAMINATION: CT [...] CT of the abdomen and pelvis from [facility] 05/02/2015. TECHNIQUE: CT examination of the abdomen [...] of the wall of the ascending and hrnmgnqu-fz-ssk transverse colon which may be related to [...] morphology of the liver with splenomegaly and ohtgn-wi-qsfqaifo volume of predominantly upper abdominal ascites and stigmata of portal hypertension, similar in appearance to the prior examination. Pneumobilia and prior cholecystectomy, as before. 2. There is thickening of the wall of the ascending and tkkotdhs-nr-blv transverse colon which may be related to [...] grade 1 anterolisthesis of L5 on S1. [facility]/[employer] Workstation ID: [id number] Invalid Interpretation Code [employer] [facility] CT HEAD OR BRAIN WITHOUT CON TRASTon [...] on the left, not significantly changed.Workstation ID: [id number] by: XANDER SUAZO on WedJan 07, 2018 11:55:50 PM EDTTranscribed by: XANDER SUAZO on WedJan 07, 2018 11:55:50 PM EDTFinalized by: XANDER SUAZO on WedJan 07, 2018 11:55:50 PM EDT Normal [facility] Comment on above: Order Comment: Reaso [...] the left, not significantly changed. Workstation ID: [id number] Invalid Interpretation Code [facility] [employer] [facility] CT Head Or Brain Without Contrast EXAMINATION: [...] right external auditory canal. Invalid Interpretation Code [facility] CT Head Or Brain Without Contrast Interface, Rad In [employer] - 01/07/2018 11:58 PM EDT EXAMINATION: [...] the left, not significantly changed. Workstation ID: [id number] Invalid Interpretation Code [employer] [facility] Chem 7on 01-08-2018 Anion gap 11 mmol/L Invalid Interpretation Code 10 - 20 mmol/L [facility] Bicarbonate (HCO3) 23 mmol/L Invalid Interpretation Code 21 - 32 mmol/L [facility] BUN/Creatinine Ratio 22.1 mg/mg High 10.0 - 20.0 [facility] Chloride 114 mmol/L High 98 - 108 mmol/L [facility] Creatinine 0.86 mg/dL Invalid Interpretation Code 0.6 - 1.2 mg/dL [facility] eGFR (non-black) 73 mL/min/{1.73_m2} Invalid Interpretation Code >=60 [facility] eGFR (non-black) The eGFR should be u sed for monitoring renal function only and not for medication dosing. Invalid Interpretation Code [facility] Glucose mass conc 104 mg/dL High 65 - 99 mg/dL [facility] Interpretation and review of laboratory results Abnormal Invalid Interpretation Code [facility] Potassium molar conc 3.0 mmol/L Low 3.5 - 5.1 mmol/L [facility] Sodium 145 mmol/L Invalid Interpretation Code 135 - 145 mmol/L [facility] Urea nitrogen 19 mg/dL Invalid Interpretation [...] Tube Hold for add-ons. Invalid Interpretation Code [facility] Comment on above: Auto resulted. POC Glucoseon 01-08-2018 Glucose mass conc 105 mg/dL High 65 - 99 mg/dL [facility] Interpretation and review of laboratory results Abnormal Invalid Interpretation Code [facility] PT/INRon 01-08-2018 INR Coag RelTime (Bld) During the induction phase of oral anticoagulation, the INR may not reflect the anticoagulation status of the patient. Therapeutic ranges for INR's are: Most clinical situations: INR 2.0-3.0 Mechanical Prosthetic Valve: INR 2.5-3.5 Critical: INR >5.0 Invalid Interpretation Code [facility] INR Coag RelTime (PPP) 1.6 {INR} High 0.8 - 1.1 [facility] Prothrombin time (PT) Coag time (PPP) 19.1 s High 11.8 - 14.3 [facility] Drawon 01-08-2018 Creatinine The following orders were created for panel order [facility]. Procedure Abnormality Status --------- ------ Lavender Top[[id number]] Final result Mint Green Top[[id number]] Final result Gold Top[[id number]] Final result Light Blue Top[[id number]] Final result Please view results for these tests on the individual orders. Invalid Interpretation Code [facility] Troponinon 01-08-2018 Troponin I.cardiac mass conc ng/mL Invalid Interpretation Code <=45 ng/L [facility] Comment on above: The 2014 AHA/ACC Gu ideline for the Management of Patients With Wbf-XV-Hynyabfih Acute Coronary Syndromes defines myocardial infarction (PA) as follows: 1. For troponin-I value above the 45 ng/L (99th percentile) cut-off, a rise or fall greater than or equal to 20% from the initial value is indicative of PA, in conjunction with the appropriate clinical symptoms. [...] quantified by microscopic examination. Invalid Interpretation Code [facility] Urine Drug Screenon 01-09-20 18 Amphetamine [...] for treatment purposes only. Invalid Interpretation Code [facility] Interpretation and review of laboratory results Normal Invalid Interpretation Code [facility] VBG (Obtain Venous Blood Gas es)on 01-08-2018 VBG (Obtain Venous Blood Gases) Invalid Interpretation Code [facility] XR CHEST PA/APon 01-08-2018 XR CHEST PA/AP EXAMINATION:XR CHEST PA/APHISTORY:Weakness and chest pain.TECHNIQUE:XR CHEST PA/APCOMPARISON:04/10/2016.F INDINGS:Lungs are hypoinflated. No large pneumothorax or pleural effusion is visualized. No focal airspace consolidation is visualized. Right-sided discoid atelectasis noted. Unchanged cardiomediastinal silhouette and osseous structures noted. Probable cholecystectomy clips noted.IMPRESSION:No acute pulmonary abnormality is visualized.Streamweaver/Dengi OnlineWorkstation ID: [id number] by: NOEMY PÉREZ on WedJan 07, 2018 11:13:30 PM EDTTranscribed by: VIMAL TABARES on WedJan 07, 2018 11:17:27 PM EDTFinalized by: NOEMY PÉREZ on WedJan 08, 2018 3:41:50 AM EDT Normal [facility] Comment on above: Order Comment: Reaso [...] IMPRESSION: No acute pulmonary abnormality is visualized. /[employer] Workstation ID: [id number] Invalid Interpretation Code [facility] XR Chest 1 View No acute pulmonary abnormality is visualized. /[employer] Workstation ID: [id number] Invalid Interpretation Code [facility] XR Chest 1 View EXAMINATION: XR CHES T PA/AP HISTORY: Weakness and chest pain. TECHNIQUE: XR CHEST PA/AP COMPARISON: 04/10/2016. FINDINGS: Lungs are hypoinflated. No large pneumothorax or pleural effusion is visualized. No focal airspace consolidation is visualized. Right-sided discoid atelectasis noted. Unchanged cardiomediastinal silhouette and osseous structures noted. Probable cholecystectomy clips noted. Invalid Interpretation Code [facility] XR WRIST LEFT 3+ VIEWS (BARB MAE)on 08-25-2017 XR WRIST LEFT 3+ VIEWS (STANDARD) EXAMINATION:XR WRIST LEFT 3+ VIEWS (STANDARD)HISTORY:ORDERING SYSTEM PROVIDED HISTORY: POST OP, TECHNOLOGIST PROVIDED HISTORY: Reason for exam: fxInjury/TraumaCancer History: ?Surgery, RadiationHistory: cholecystectomyEncounter Type: Subsequent/Follow-upMechanis m of injury: contustionORDERING SYSTEM PROVIDED DIAGNOSIS CODES:S52.502A Closed fracture distal radius and ulna, left, initial kfzybmimkE81.602A Closed fracture distal radius and ulna, left, [...] alignment is anatomic and no complication is appreciated.[facility]/Rigoberto on ID: [id number] by: KALA BREWSTER on WedAug 25, 2017 3:09:11 PM ESTTranscribed by: DAPHNEY RODRIGEZ on WedAug 25, 2017 3:57:29 PM ESTFinalized by: KALA BREWSTER on WedAug 25, 2017 4:03:47 PM EST Normal [facility] Comment on above: Order Comment: Reaso n for exam?:fxInjury/Trauma or Illness?:Injury/TraumaHow long have you had these symptoms (acute/chronic)?:ChronicHistory of cancer?:?Surgeries, chemotherapy, or radiation?:cholecystectomyType of Exam?:Subsequent/Follow-upMechanism of injury?:contustion XR FLUOROSCOPY LESS THAN ONE HOURon 08-10-2017 XR FLUOROSCOPY LESS THAN ONE HOUR This is an auto finalized result. Please refer to patient chart for further information. information. information. [facility] Comment on above: Order Comment: Reaso [...] inner ear cavity. Partially included in the uztye-gm-fmqn are left facial fractures including a depressed inferior left orbital wall fracture with hemorrhage in the left maxillary sinus.IMPRESSION:1. No signs of an acute intracranial process.2. Generalized atrophy of the brain with wqkd-oo-nxstdtme probable chronic small vessel ischemic changes.3. Opacification of the right mastoid air cells and inner ear cavity, which may be related to age-indeterminate otomastoiditis. Clinical correlation is recommended.4. Partially imaged are left facial fractures including a depressed left inferior orbital wall fracture with hemorrhage in the left maxillary sinus. Please see the CT facial bone report for further details.JAR/bdWorkstation ID: [id number] by: SY LEAHY on WedAug 03, 2017 4:06:30 PM ESTTranscribed by: BRENDAN VALDES on WedAug 03, 2017 4:11:43 PM ESTFinalized by: SY LEAHY on WedAug 03, 2017 5:47:14 PM EST Normal [facility] Comment on above: Order Comment: Reaso [...] intraorbital hematoma. The globe is intact.JAR/bdWorkstation ID: [id number] by: SY LEAHY on WedAug 03, 2017 4:22:29 PM ESTTranscribed by: BRENDAN VALDES on WedAug 03, 2017 4:26:18 PM ESTFinalized by: SY LEAHY on WedAug 03, 2017 5:47:02 PM EST Normal [facility] Comment on above: Order Comment: Reaso [...] WedAug 03, 2017 3:03:15 PM EST Normal [facility] Comment on above: Order Comment: Reaso [...] Encntr screen for malignant neoplasm of genitourinary wlxnbaL93.8 Acid phosphatase nwrlptupL03.19 Personal history of digestive diseaseCOMPARISON:None.TECHN IQUE:Complete ultrasound [...] WedJul 29, 2017 8:29:54 PM EST Normal [facility] Comment on above: Order Comment: Reaso n for exam?:screen for malignant neoplasm of genitourinary organs, elevated acid phospataseInjury/Trauma or Illness?:Illness/OtherHow long have you had these symptoms (acute/chronic)?:UnknownHistory of cancer?:?Surgeries, chemotherapy, or radiation?:cholecystectomyType of Exam?:InitialAdditional signs and symptoms?:none CNOVSPon 02-04-2017 CNOVSP Visit (SP) Office ([facility]) ----LANEY LARIOS ([id number]) 1955 [facility] Time Provider Department02/04/17 2:45 PM CAESAR VALENCIA [...] ANDamp;MINERALS/FERROUS FUM (MULTI VITAMIN ORAL) Take by mouth.Casey-3 Fatty Acids-Vitamin E 1,000 mg cap Take [...] kg (102 lb 3.2 oz) BMI 18.11 kg/b4Ifoffna Appearance: alert and oriented, appearing in no [...] according to her.RUKHSANA RUSH-CReferring Provider: CAESAR VALENCIA [[id number]]Allergies As of Date: 02/04/2017(No Known Allergies)Date Reviewed: 02/04/2017Reviewed by: October Kojo - Fully AssessedReason for Visit: Anemia [6] Cmt: 1 year follow upPrimary Visit Diagnosis:Anemia, unspecified type [D64.9] Other Visit Diagnosis:Wound infection [T14.8, L08.9]Order(s):IRON + TIBC [SQIRON] Order #: [id number] FUTURE FERRITIN BLD [SQFERR] Order #: [id number] FUTUREDisposition: Return in about 1 year (around [...] FOR*Encounter Status:Closed by LIGIA SEGUNDO on 02/04/17 [facility] PROGRESSon 02-04-2017 PROGRESS HNO ID: [id number] thor: Ligia Nettleservice: (none)Author Type: Physician AssistantType: [...] ANDMINERALS/FERROUS FUM (MULTI VITAMIN ORAL) Take by mouth.Casey-3 Fatty Acids-Vitamin E 1,000 mg cap Take [...] kg (102 lb 3.2 oz) BMI 18.11 kg/s1Opthfgk Appearance: alert and oriented, appearing in no [...] healing according to her.LIGIA SEGUNDO PA-C Normal [facility] Remote CBCDIF (for [facility] use o nly)on 02-04-2017 Abs Baso 0.01 k/uL Normal 0.00-0.10 [facility] Abs [facility] [place] 0.30 k/uL Normal 0.00-0.86 [facility] Abs Neut 2.10 k/uL Normal 1.45-7.50 [facility] Basophils/100 WBC Auto (Bld) 0.3 % Normal [facility] Eosinophils 0.21 10*3/uL Normal 0.00-0.45 [facility] Eosinophils/100 leukocytes 5.4 % Normal [facility] Erythrocyte distribution width Auto Ratio (RBC) 14.3 % Normal 11.5-15.0 [facility] Erythrocytes (RBC) 2.59 10*6/uL Low 3.90-5.20 [facility] Hematocrit (HCT) 27.8 % Low 36.0-46.0 [facility] Hemoglobin mass conc (Bld) 8.7 g/dL Low 11.5-15.5 [facility] Lymphocytes 1.25 10*3/uL Normal 1.00-4.00 [facility] Lymphocytes/100 leukocytes 32.3 % Normal [facility] MCH 33.6 pG Normal 26.0-34.0 [facility] MCHC mass conc (RBC) 31.3 g/dL Normal 30.5-36.0 [facility] MCV 107.3 fL High 80.0-100.0 [facility] Monocytes/100 leukocytes 7.8 % Normal [facility] Neutrophils/100 WBC Auto (Bld) 54.2 % Normal [facility] Platelet mean volume (PMV) 8.9 fL Low 9.0-12.7 [facility] Platelets 140 10*3/uL Low 150-400 [facility] WBC (Leukocytes) 3.87 10*3/uL Normal 3.70-11.00 [facility] Vital Signs Date Time Vital Sign Value Performing Clinician Ember balderas 01-08-2018 03:45-0400 BP Diastolic 64 mm[Hg] [facility] 01-08-2018 03:45-0400 BP Systolic 87 mm[Hg] [facility] 01-08-2018 03:45-0400 Pulse (Heart Rate) 71 /min [facility] 01-08-2018 03:45-0400 Pulse Oximetry 98 % [facility] 01-08-2018 03:45-0400 Respiratory Rate 18 /min [facility] 01-07-2018 22:19-0400 BMI (Body Mass Index) 17.01 kg/m2 [facility] 01-07-2018 22:19-0400 Body Temperature 97.59 [degF] [facility] 01-07-2018 22:19-0400 Height 160 cm [facility] 01-07-2018 22:19-0400 Weight 43.55 kg [facility] Encounters Encounter Date Encounter Type Care Provider Facility Start: 04-01-2023 End: 04-01-2023 ambulatory [facility] Start: 12-31-2022 End: 12-31-2022 ambulatory SH[facility] Start: 12-11-2022 End: 12-12-2022 ambulatory WAYLON CAVAZOS [facility] Start: 11-02-2022 End: 11-02-2022 ambulatory [facility] Start: 10-14-2022 End: 10-15-2022 ambulatory ADE TAN [facility] Start: 09-09-2022 End: 09-09-2022 ambulatory [facility] Start: 09-01-2022 End: 09-02-2022 ambulatory ZOYAPRASHANT MARYELLEN [facility] Start: 08-25-2022 End: 08-26-2022 ambulatory ADE [facility] Start: 06-18-2022 End: 06-18-2022 ambulatory [facility] Start: 09-02-2021 End: 09-03-2021 Evaluation and management of inpatient SHAIKH KAISER Facility: Start: 06-26-2021 End: 06-27-2021 ambulatory REFERRED SELF Facility:[facility] Start: 03-24-2021 End: 03-25-2021 ambulatory REFERRED SELF Facility:[facility] Start: 09-11-2020 End: 09-11-2020 Orders Only Leticia Wright Work Phone: [facility] Start: 01-08-2018 End: 01-08-2018 Emergency department patient visit GHASSAN ZEINA [facility] Start: 01-07-2018 End: 01-08-2018 Emergency department patient visit Del Christianson Work Phone: [facility] Start: 08-25-2017 End: 08-26-2017 Ambulatory MICHAEL LATHAM [facility] Start: 08-10-2017 End: 08-10-2017 Patient encounter MICHAEL ADAMS [facility] Start: 08-04-2017 End: 08-04-2017 Ambulatory MICHAEL LATHAM [facility] Start: 08-03-2017 End: 08-03-2017 Emergency department patient visit YOANA ROSALES [facility] Start: 07-29-2017 End: 07-30-[address] [facility] Start: 07-27-2017 End: 07-27-[address] [facility] Start: 07-02-2017 End: 07-02-[address] [facility] Start: 06-24-2017 End: 06-24-[address] [facility] Start: 02-04-2017 End: 02-05-2017 Ambulatory CAESAR VALENCIA [facility] Procedures Date Procedure Procedure Detail Performing Clinician Start: 11-02-2022 Follow-up visit Follow-up SHO MILLER Start: 03-24-2021 ANES UPR GI NDSC PX NOS REFERRED SELF Start: 03-24-2021 EGD DIAGNOSTIC BRUSH WASH JULIANO LUCAS Plan of Treatment Date Care Activity Detail Author Start: 08-03-2027 [facility] Start: 03-12-2020 Influenza vaccination given Se quential Influenza Vaccine (#1) [facility] Start: 03-12-2018 Influenza vaccination SEQUENTI AL INFLUENZA VACCINE (Season Ended) [facility] Start: 2016 Zoster vaccine hzv l adriana for subcutaneous use ZOSTER VACCINE [facility] Start: 2006 Administration of he rpes zoster vaccine Zoster Vaccines (1 of 2) [facility] Start: 2006 Screening for malign ant neoplasm of colon [facility] Start: 1972 COVID-19 Vaccine (1 of 2) COVID-19 V accine (1 of 2) [facility] Start: 1971 HIV screening HIV Screening [facility] Start: 1968 Adolescent depressio n screening assessment Depression Screening (PHQ9) [facility] Start: 1959 History and physical examination, annual for health maintenance Wellness Visit [facility] Start: 1956 Screening colonoscopy COLONOSCOPY O [facility] Start: 1956 Screening for malign ant neoplasm of cervix PAP SMEAR [facility] Start: 1956 Screening mammography Mammogram O [facility] End: 01-07-2018 Bacteria aerobode culture Urine Aerobic Culture Routine Once for 1 Occurrences starting 01/07/2018 until 01/07/2018 [facility] Bacteria aerobode culture Urine Aerobic Culture Routine 01/07/2018 11:13 PM EDT [facility] End: 01-07-2018 Bacteria culture Blood Culture Aerobic/Anaerobic Routine Once for 1 Occurrences starting 01/07/2018 until 01/07/2018 [facility] Bacteria culture [facility] Immunizations Immunization Date Immunization Notes Care Provider Fa cility 08-03-2017 tetanus toxoid, redu jason diphtheria toxoid, and acellular pertussis vaccine, adsorbed; Translations: [TDAP] Del Christianson [facility] Payers Date Payer Category Payer Medicaid [id number] 2016 Medicaid [employer] MED[employer] [id number] 2016-Present 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 Recommendation was to establish with a GI provider in the area. INTERVAL 12/31/22: Mx Larios returns in follow up. 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 She has been off Imuran for approx 6 months. The Imuran was held Jun 2022 due to worsening anemia. Most recent liver enzymes ( off Imuran) were WNL Ms. Larios also follow (more content not included)... [facility] 12-31-2022 Note [facility] Gastroenterolog y Follow-Up Patient Visit CHIEF COMPLAINT [...] she will be moving to the [facility] area. Recommendation was to establish with a GI provider in the area. INTERVAL 12/31/22: Mx Larios returns in follow up. 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 She has been off Imuran for approx 6 months. The Imuran was held Jun 2022 due to worsening anemia. Most recent liver enzymes ( off Imuran) were WNL Ms. Larios als (more content not included)... [facility] 12-11-2022 Note Patient: Laney Larios Procedure Information Anesthesia Start Date/Time: 12/11/22 1019 Scheduled providers: Waylon Cavazos MD; Herb Mims MD; LOREN Curran Procedure: ENDOSCOPIC ULTRASOUND (UPPER) Location: [facility] [place] [facility] Relevant Problems Cardio (+) Essential hypertension [...] Plan discussed with CAA. Additional Equipment Requests [facility] 12-11-2022 Note Patient: Laney Larios Procedure Summary Date: 12/11/22 Room / Location: [facility] Endoscopy Anesthesia Start: 1019 Anesthesia Stop: 1125 [...] per anesthesia protocol. No notable events documented. [facility] 12-11-[address] Cavazos speaking with patient at bedside. Report called to Carolin Torres and spoke with Mandy. All questions answered at this time. Pictures from procedure and discharge instructions sent with patient back to facility Yajaira Mays RN PACU [facility] 12-11-2022 Note Airway Date/Time: 12/11/2022 10:25 AM Urgency: elective General Information and Staff Patient location during procedure: OR Anesthesiologist: Herb Mims MD Resident/POWER SYSTEM OPERATOR/CAA: LOREN Curran Performed: resident/POWER SYSTEM OPERATOR/CAA Indications and Patient Condition Indications for airway [...] 1 Number of other approaches attempted: [address] [facility] 12-02-2022 Note Faxed to [facility] Medications to take AM day of procedure with sips water only. Sertraline midodrine Medication Hold instructions: NSAIDs (Motrin,Aleve): 5 days prior to procedure Vitamins/Supplements: 5 days prior to procedure Nothing to eat or drink after midnight, including Gum, Candy, Mints, Ice chips also. At least one person needs to accompany you, to be your shuttle driver home and stay with you the first 24 hours after the procedure. Remove jewelry and leave at home day of procedure. Loose comfortable clothing is recommended. Bring insurance card and ID for registration purposes. [facility] 11-02-2022 Note [facility] Gastroenterolog y Follow-Up Patient Visit CHIEF COMPLAINT [...] she will be moving to the [facility] area. PREVIOUS LABS/IMAGING/ENDOSCOPY: Labs: 06/14/22 Alk phos - 66 AST 18 ALT 8 Total Bili 1.1 Labs 08/17/22 Alk phos - 86 AST 20 ALT 11 Hb 7.7 Platelet 55 Labs 08/26/22 Hb 9 Platelet 48 Endoscopic procedures EGD 06/26/2021 Esophageal varices and portal hypertensive gastropathy. RECOMMENDATION: Given that the patient has been banded (more content not included)... [facility] 10-14-2022 Note Patient: Laney Larios Procedure Summary Date: 10/14/22 Room / Location: [facility] Invasive [facility] [place] Main OR Anesthesia Start: 1029 Anesthesia Stop: [...] discharge from PACU No notable events documented. [facility] 10-14-2022 Note Patient: Laney Larios Procedure Information Date/Time: 10/14/22 1045 Scheduled providers: Ade Tan MD; Marcelina Govea MD; LOREN Hamm Procedure: EGD Location: [facility] [place] Main OR Relevant Problems Cardio (+) Essential [...] Plan discussed with CAA. Additional Equipment Requests [facility] 10-01-2022 Note FAXED TO [facility] FAX # [phone] Medications to take AM day of procedure with sips water only. MIDODRINE SERTRALINE Medication Hold instructions: NSAIDs (Motrin,Aleve): 5 days prior to procedure Vitamins/Supplements: 5 days prior to procedure Nothing to eat or drink after midnight, including Gum, Candy, Mints, Ice chips also. At least one person needs to accompany you, to be your shuttle driver home and stay with you the first 24 hours after the procedure. Remove jewelry and leave at home day of procedure. Loose comfortable clothing is recommended. Bring insurance card and ID for registration purposes. [facility] 09-15-2022 Note Patient is currently on Xifaxan 550mg tablet and it is requiring a prior authorization (PA) renewal at this time. Submitted PA through CoverMyMeds today. Awaiting determination. Aguilar Mac, Convertible Power Shovel Operator 09/15/22 10:[address] [facility] 09-15-2022 Note PA not required at t his time. Xifaxan already has a current PA in place that is good through 09/24/2023. Felisha Damon, Laurie, [facility] Outpatient Clinical Pharmacist [place] [facility] [phone] 09/16/22 1:[address] [facility] 09-09-2022 Note Fall Risk Prevention Given Unive [facility] 09-09-2022 Note [facility] Gastroenterolog y Follow-Up Patient Visit CHIEF COMPLAINT [...] 60-74% of standard (more content not included)... [facility] 09-01-2022 Note Patient: Laney Larios Procedure Summary Date: 09/01/22 Room / Location: [facility] Main OR Anesthesia Start: 1624 Anesthesia Stop: [...] Hydration status: acceptable No notable events documented. [facility] 09-01-2022 Note Patient: Laney Larios Procedure Information Date/Time: 09/01/22 1530 Scheduled providers: Angelo Lr MD; LOREN Julian; Juliano Augustine MD Procedure: EGD Location: [facility] Main OR Past Medical History: Diagnosis Date [...] risks discussed with patient. Plan discussed with POWER SYSTEM OPERATOR. Additional Equipment Requests [facility] 08-25-2022 Note Patient: Laney Larios Procedure Summary Date: 08/25/22 Room / Location: [facility] Endoscopy Anesthesia Start: 1115 Anesthesia Stop: 1157 [...] events for this encounter. Park Lovell MD Household Appliance Installer PGY-2 08/25/2022 11:[address] [facility] 08-25-2022 Note Gastroenterology His tory and [...] (Comirnaty) 30 mcg/0.3 mL suspension for reconstitution enrich-in COVID-19 Vaccine (PF) 30 mcg/0.3 mL IM susp (purple) ADMINISTER 0.3ML IN THE MUSCLE DIRECTED Historical Provider, sertraline (Zoloft) 25 mg tablet in the morning. Historical Provider, sulfamethoxazole-trimethoprim (Bactrim) 400-80 mg tablet sulfamethoxazole 400 mg-trimethoprim 80 mg tablet Historical Pro (more content not included)... [facility] [facility] 08-25-2022 Note Gastroenterology His tory and [...] (Comirnaty) 30 mcg/0.3 mL suspension for reconstitution [employer] COVID-19 Vaccine (PF) 30 mcg/0.3 mL IM susp (purple) ADMINISTER 0.3ML IN THE MUSCLE DIRECTED Historical Provider, sertraline (Zoloft) 25 mg tablet in the morning. Historical Provider, sulfamethoxazole-trimethoprim (Bactrim) 400-80 mg tablet sulfamethoxazole 400 mg-trimethoprim 80 mg tablet Historical Pro (more content not included)... [facility] 08-25-2022 Note Patient: Laney Larios Procedure Information Date/Time: 08/25/22 1130 Scheduled providers: Ade Tan MD; Dyllan Layton MD Procedure: EGD Location: [facility] Endoscopy Relevant Problems [...] Plan discussed with resident. Additional Equipment Requests [facility] 06-18-2022 Note [facility] Gastroenterolog y Follow-Up Patient Visit CHIEF COMPLAINT [...] 100 mg capsul (more content not included)... [facility] Summary Purpose Family History No Family [...] section and content) DATE CREATED AUTHOR 12/31/2017 [facility] DATE CREATED AUTHOR AUTHOR'S ORGANIZ ATION 01/05/2018 [facility] DATE CREATED AUTHOR AUTHOR'S ORGANIZ ATION 02/04/2018 [facility] DATE CREATED AUTHOR AUTHOR'S ORGANIZ ATION 09/08/2021 [facility] DATE CREATED AUTHOR AUTHOR'S ORGANIZ ATION 02/15/[address] [facility] DATE CREATED AUTHOR AUTHOR'S ORGANIZ ATION 04/16/2023 [facility] ED Notes - Irina Wynn RN - 01/08/2018 3:55 AM EDTED Notes - Irina Wynn RN - 01/08/2018 3:42 AM EDTED Notes - Irina Wynn RN - 01/08/2018 3:33 AM EDT Miscellaneous Notes (unrecog nized section and content) Report given to: DEJA Sheehan at [facility] at this time. Report given to: [facility] Pt bathed head to toe [...] note may be different from the original. [facility] ED Physician Note: NAME: Laney Larios 62 y.o. CSN: [id number] PCP: Ghassan Peña CNP ED Course / Medical Decision Making: Patient comes in with altered mental status and seeing things and feeling fatigued. She has a history of liver cirrhosis. She states she seen at [facility] at [place]. She said last time she saw her housekeeping room attendant was 2-3 months ago. Her liver ammonia [...] do feel she needs transferred back to [facility] since that is where her care is for her cirrhosis and that is where patient wants to go. Case with [facility] transfer center they will call back when a bed available. My shift is ending so I discussed case with Dr. Dewey Arce and he will talk to [facility] and fill out transfer sheet once [...] HYPOKALEMIA Disposition: Patient is being Transfer to [facility] to [facility] No medications on file History: Chief Complaint: [...] DISTAL RADIUS; Surgeon: Michael Latham MD; Location: [facility] Main OR; Service: Orthopedic FAM. Hx: Family [...] Procedure Abnormality Status --------- ------ CBC Auto Differential[[id number]] Abnormal Final result Please view results for these tests on the individual orders. OBTAIN VENOUS BLOOD GASES DRUGS OF ABUSE SCREEN, URINE CT Abdomen Pelvis With IV Contrast Only Preliminary Result 1. Cirrhotic morphology of the liver with splenomegaly and caxhi-mg-kodmsuge volume of predominantly upper abdominal ascites and stigmata of portal hypertension, similar in appearance to the prior examination. Pneumobilia and prior cholecystectomy, as before. 2. There is thickening of the wall of the ascending and xasjabrx-vu-gtu transverse colon which may be related to [...] grade 1 anterolisthesis of L5 on S1. [facility] Workstation ID: [id number] CT Head Or Brain Without Contrast Final Result 1. No acute intracranial process. 2. Age-related atrophy with stable mild chronic small-vessel white matter ischemia. 3. Mild chronic-appearing left sphenoid sinusitis. 4. Bilateral mastoid effusions, moderate on the right and small on the left, not significantly changed. Workstation ID: [id number] XR Chest 1 View Preliminary Result No acute pulmonary abnormality is visualized. /[facility] Workstation ID: [id number] Procedures: EKG 12-lead Date/Time: 01/08/2018 12:11 AM Performed by: DEL CHRISTIANSON Authorized by: DEL CHRISTIANSON Interpreted by ED attending physician Rhythm: sinus rhythm BPM: 77 Conduction: conduction normal ST Segments: ST segments normal T Waves: T waves normal Clinical impression: abnormal ECG . . Del Christianson MD ED Physician [facility] Emergency Department (Please note that portions of [...] BE BASED ON THE PRIMARY CLINICAL RECORDS. [employer] provides no warranty or guarantee of the accuracy or completeness of information in this document.
--- NOTE | 2023-08-04 13:39 | P.HP_ITS ---
<Statement entered by Gage Stewart MD - 08/04/23 18:55> Patient seen and examined, agree with assessment and plan below. History of panctopenia and anemia requiring transfusions. Outpatient labs showed worsening anemia and sent to ER. Hgb confirmed at 6.8. Given 2 units PRBC and likely discharge in am. Diagnosis: 1. Anemia 2. Pancytopenia 3. Hypotension 4. COPD H&P: HPI History of Present Illness Chief complaint: ABNORMAL LAB VALUES/SEVERE ANEMIA Narrative: 08/04/23 1330 This is a 68-year-old female patient with a past medical history as outlined below including autoimmune hepatitis, cirrhosis, and known pancytopenia of unclear etiology; who presented to the ED today from a local [facility] facility with a low outpatient hemoglobin requiring PRBC transfusion. The patient has been receiving transfusions every few weeks for anemia (pancytopenia) of unknown etiology. She follows outpatient with oncology at the [facility]. Work-up in the ED confirmed significant anemia with a hemoglobin of 6.8. Further blood dyscrasias include leukocytopenia (1.2), and thrombocytopenia (47). The patient reportedly has had a thorough outpatient work-up including recent colonoscopy and endoscopy without significant finding. No known evidence of hematuria, melena or hematochezia. No anticoagulation therapy. The patient was admitted to the hospitalist service in observation for a PRBC transfusion. At the time of my exam today the pt is pale, but otherwise at her usual baseline. She reports feeling well yesterday, but was notably weaker on wakening this morning. She denies SOB or dizziness. Denies hematochezia or melena. We will transfuse 1 un of PRBCs and then recheck her HH. If her hgb remains below 7 or if she is still symptomatic, we will consider a 2nd PRBC transfusion. Review of Systems ROS Status of ROS 10 or more systems reviewed and unremark able except as noted in history and below [facility] Medical History (Updated 08/04/23 @ 15:30 by Pat Redding NP) GERD (gastroesophageal reflux disease) ?K21.9 - Gastro-esophageal reflux disease without esophagitis (ICD-10) Hypotension ?I95.9 - Hypotension, unspecified (ICD-10) Protein calorie malnutrition ?E46 - Unspecified protein-calorie malnutrition (ICD-10) Vitamin D deficiency ?E55.9 - Vitamin D deficiency, unspecified (ICD-10) Dry eye syndrome ?H04.129 - Dry eye syndrome of unspecified lacrimal gland (ICD-10) Hernia ?K46.9 - Unspecified abdominal hernia without obstruction or gangrene (ICD- 10) Hyperglycemia ?R73.9 - Hyperglycemia, unspecified (ICD-10) Hyperlipemia ?E78.5 - Hyperlipidemia, unspecified (ICD-10) Hepatic failure ?K72.90 - Hepatic failure, unspecified without coma (ICD-10) Cirrhosis of liver ?K74.60 - Unspecified cirrhosis of liver (ICD-10) Dysthymic disorder ?F34.1 - Dysthymic disorder (ICD-10) Depression ?F32.A - Depression, unspecified (ICD-10) COPD (chronic obstructive pulmonary disease) ?J44.9 - Chronic obstructive pulmonary disease, unspecified (ICD-10) Autoimmune hepatitis ?K75.4 - Autoimmune hepatitis (ICD-10) Surgical History (Updated 08/04/23 @ 11:58 by Jennifer Esteban) H/O: hysterectomy ?Z90.710 - Acquired absence of both cervix and uterus (ICD-10) History of cholecystectomy ?Z90.49 - Acquired absence of other specified parts of digestive tract (ICD- 10) Previous back surgery ?Z98.890 - Other specified postprocedural states (ICD-10) Family History (Updated 08/04/23 @ 12:00 by Jennifer Esteban) Other Family history not known due to adoption Social History (Updated 05/20/23 @ 20:55 by Lara Hubbard RN) Within the past year, how often did you have a drink containing alcohol: never Within the past year, how often did you have six or more drinks on one occasion: never Score interpretation: A score less than 3 is consistent with normal alcohol consumption. Smoking status: Former smoker Non-prescribed substance use: denies use Previous occupational history: retired Known occupational exposures/hazards: No Highest level of school completed/degree received: high school graduate Do you want help with school or training: No Are you now , , , , never or living with a partner: never Little interest or pleasure in doing things: not at all Feeling down, depressed, or hopeless: not at all Feel stressed/tense/nervous/anxious/difficulty sleeping: not at all Do you think of yourself as: straight/heterosexual Gender Identity: female Meds Home Medications and Allergies Home Medications Medication Instructions Recorded Confirmed Type acetaminophen 325 mg capsule 650 mg PO Q6H PRN fever or pain 05/20/23 08/04/23 History albuterol sulfate 90 mcg/actuation 2 puff inhalation Q4H PRN 05/20/23 08/04/23 History aerosol inhaler shortness of breath or wheezing cetylpyridinium chloride 1 hernan mucous membrane .Q6Hrs PRN 05/20/23 08/04/23 History sore throat cholecalciferol (vitamin D3) 125 5,000 unit PO QWEEK 05/20/23 08/04/23 History mcg (5,000 unit) capsule (D3-5000) docusate sodium 100 mg capsule 100 mg PO DAILY 05/20/23 08/04/23 History fluticasone propionate 50 1 spray intranasal DAILY 05/20/23 08/04/23 History mcg/actuation nasal spray,suspension lactulose 10 gram/15 mL oral 20 g PO BID 05/20/23 08/04/23 History solution (Enulose) loratadine 10 mg chewable tablet 10 mg PO DAILY 05/20/23 08/04/23 History midodrine 10 mg tablet 10 mg PO TID 05/20/23 08/04/23 History omeprazole 40 mg capsule,delayed 40 mg PO DAILY 05/20/23 08/04/23 History release polyethylene glycol 3350 17 17 g PO DAILY 05/20/23 08/04/23 History gram/dose oral powder (ClearLax) polyvinyl alcohol 1.4 % eye drops 1 drp ophthalmic (eye) DAILY 05/20/23 08/04/23 History (Artificial Tears (polyvinyl alcohol)) potassium chloride 10 mEq 20 meq PO DAILY 05/20/23 08/04/23 History tablet,extended release (Klor-Con) rifaximin 550 mg tablet (Xifaxan) 550 mg PO BID 05/20/23 08/04/23 History sertraline 25 mg tablet 12.5 mg PO Q24H 05/20/23 08/04/23 History trazodone 150 mg tablet 50 mg PO DAILY 05/20/23 08/04/23 History ursodiol 250 mg tablet 250 mg PO Q12H 05/20/23 08/04/23 History magnesium oxide 400 mg PO DAILY 08/04/23 08/04/23 History Allergies Allergy/AdvReac Type Severity Reaction Status Date / Time No Known Drug Allergies Allergy Verified 05/20/23 18:30 Exam Narrative Exam Narrative: Pale Constitutional Vital Signs, click to edit/add: Last Vital Signs Temp 97.9 F 08/04/23 13:27 Pulse 68 08/04/23 13:27 Resp 18 08/04/23 13:27 BP 96/57 08/04/23 13:27 Pulse Ox 93 L 08/04/23 13:27 O2 Del Method Room Air 08/04/23 13:27 Common normals: no apparent distress, oriented x3, alert and well nourished General appearance: cooperative Orientation/consciousness: Yes awake HENMT Common normals: normocephalic, head/scalp atraumatic, hearing grossly normal bilaterally, external nose normal and moist oral mucous membranes Eye Common normals: PERRL, EOMs intact bilaterally, conjunctivae normal and no scleral icterus Alignment: alignment normal Eyelid: eyelids normal Neck & C-Spine Common normals: full ROM, supple and no JVD Chest Common normals: inspection of chest normal Chest: symmetrical chest wall rise Respiratory Common normals: normal respiratory effort, no retractions, no use of accessory muscles and clear to auscultation bilaterally Effort & inspection: able to speak in complete sentences Cardio Common normals: no JVD, regular rate, regular rhythm, S1 normal heart sound, S2 normal heart sound, no gallops, no clicks, no rub and peripheral pulses 2+ throughout Heart sounds: murmur (HSM 2/6) GI Common normals: Normal to inspection, nondistended, normoactive bowel sounds present, soft to palpation, non-tender, no hepatosplenomegaly, no masses and no bruits Bladder/kidney exam: bladder normal to palpation Back & Pelvis Common normals: thoracic and lumbar spine normal to inspection Extremity Common normals: normal capillary refill and no pedal edema General: normal exam except as noted; no clubbing and no cyanosis Neuro [place] Coma Scale: GCS not evaluated Common normals: CN's II-XII intact bilaterally, moves all extremities, no focal motor deficits and no sensory deficits noted Speech: speech normal Psych Common normals: mental status grossly normal, thought process normal, affect normal and activity/motor behavior normal Results Labs Labs: Short CBC 08/04/23 Range/Units 09:09 WBC 1.2 L* (4.0-11.0) 10^3/uL Hgb 6.8 L* (12.0-16.0) g/dL Hct 21.5 L* (36.0-48.0) % Plt Count 47 L (150-450) 10^3/uL BMP 08/04/23 09:09 Sodium 145 Potassium 4.3 Chloride 110 H Carbon Dioxide 26.2 BUN 29.0 H Creatinine 1.17 H Glucose 145 H Calcium 9.1 Liver Function 08/04/23 Range/Units 09:09 Total Bilirubin 1.1 H (0.2-1.0) mg/dL AST 32 (15-37) U/L ALT 23 (14-59) U/L Alkaline Phosphatase 111 (46-116) U/L Albumin 2.7 L (3.4-5.0) g/dL Pulse Oximetry Attestation: I have reviewed the pertinent pulse oximetry results. Assessment and Plan Assessment and Plan (1) Severe anemia: Assessment and Plan: ACUTE ON CHRONIC * Anemia/Pancytopenia of unknown etiology * No active bleeding, anticoagulation * Defer overall management to outpatient management per oncology - next appointment in August * Transfuse 1 un PRBCs now * Repeat HH after transfusion is complete * Consider 2nd unit pending result and pt symptoms * CBC in AM * Likely d/c tomorrow (2) Pancytopenia: Assessment and Plan: CHRONIC * See anemia above * Reverse isolation for leukocytopenia * No indication for FFP transfusion at this time w/ Plt of 47 * CBC in AM to monitor (3) Hypotension: Assessment and Plan: CHRONIC * 1 liter IVF given in ED * No further IVF at this time * Continue home midodrine (4) GERD (gastroesophageal reflux disease): Assessment and Plan: CHRONIC * Continue home PPI (5) Hepatic failure: Assessment and Plan: CHRONIC * 2/2 autoimmune hepatitis and cirrhosis * Continue home ursodiol, Xifaxan, lactulose (6) Dysthymic disorder: Assessment and Plan: CHRONIC * Continue home sertraline (7) COPD (chronic obstructive pulmonary disease): Assessment and Plan: CHRONIC * Continue home PRN albuterol HFA * No clinical concern for acute exacerbation
[2023-08-04 16:38] LABS: Hemoglobin 7.4 g/dL (12.0-16.0)
[2023-08-04 16:40] LABS: Hematocrit 23.7 % (36.0-48.0)
[2023-08-04] MEDS: MIDODRINE HCL 5 MG TABLET 10 MG PO (17:06)
[2023-08-04] MEDS: ARTIFICIAL TEARS 300 DROP/15 ML BOTTLE OP (20:51)
[2023-08-04] MEDS: RIFAXIMIN 550 MG TABLET PO (20:52)
[2023-08-04] MEDS: LACTULOSE 10 GM/15 ML UD CUP 20 GM PO (20:52)
[2023-08-04] MEDS: URSODIOL 300 MG CAPSULE PO (20:52)
[2023-08-04] MEDS: TRAZODONE HCL 50 MG TABLET PO (20:52)
[2023-08-04] MEDS: SERTRALINE HCL 50 MG TABLET 12.5 MG PO (20:52)
[2023-08-04 21:16] LABS: Basophils Percent Auto 0.6 % (0.2-2.0); Eosinophils Absolute Auto 0.1 10^3/uL (0.0-0.7); Hematocrit 28.4 % (36.0-48.0); Hemoglobin 9.2 g/dL (12.0-16.0); Immature Granulocytes Abs Auto 0.01 10^3/uL (0.00-0.03); Immature Granulocytes Pct Auto 0.6 % (0.0-0.5); Lymphocytes Absolute Auto 0.4 10^3/uL (1.2-3.8); Mean Corpuscular HGB Conc 32.4 g/dL (29.9-35.2); Mean Corpuscular Hemoglobin 33.6 pg (26.7-34.0); Mean Corpuscular Volume 103.6 fL (81.0-99.0); Mean Platelet Volume 11.1 fL (9.5-13.5); Monocytes Absolute Auto 0.2 10^3/uL (0.3-0.8); Monocytes Percent Auto 13.1 % (1.7-12.0); Neutrophils Absolute Auto 0.9 10^3/uL (1.4-6.5); Neutrophils Percent Auto 55.7 % (43.0-75.0); Platelet Count 47 10^3/uL (150-450); Red Blood Count 2.74 10^6/uL (4.20-5.40); Red Cell Distribution Width 20.3 % (11.0-15.0); White Blood Count 1.6 10^3/uL (4.0-11.0)
[2023-08-05] MEDS: OMEPRAZOLE 40 MG CAPSULE.DR PO (04:52)
[2023-08-05 04:53] VITALS: BP 124/68; PULSE 68; RESP 16; TEMP 36.6; O2SAT 98
[2023-08-05 06:22] LABS: Basophils Percent Auto 0.7 % (0.2-2.0); Eosinophils Absolute Auto 0.1 10^3/uL (0.0-0.7); Hematocrit 25.6 % (36.0-48.0); Hemoglobin 8.1 g/dL (12.0-16.0); Lymphocytes Absolute Auto 0.4 10^3/uL (1.2-3.8); Lymphocytes Percent Auto 29.1 % (20.5-60.0); Mean Corpuscular HGB Conc 31.6 g/dL (29.9-35.2); Mean Corpuscular Hemoglobin 33.6 pg (26.7-34.0); Mean Corpuscular Volume 106.2 fL (81.0-99.0); Mean Platelet Volume 10.9 fL (9.5-13.5); Monocytes Absolute Auto 0.2 10^3/uL (0.3-0.8); Monocytes Percent Auto 12.8 % (1.7-12.0); Neutrophils Absolute Auto 0.7 10^3/uL (1.4-6.5); Neutrophils Percent Auto 52.4 % (43.0-75.0); Platelet Count 40 10^3/uL (150-450); Red Blood Count 2.41 10^6/uL (4.20-5.40); Red Cell Distribution Width 20.8 % (11.0-15.0); White Blood Count 1.4 10^3/uL (4.0-11.0)
[2023-08-05 06:45] LABS: Alanine Aminotransferase 17 U/L (14-59); Albumin Globulin Ratio 0.5; Albumin Level 2.2 g/dL (3.4-5.0); Alkaline Phosphatase 95 U/L (46-116); Anion Gap 11.9; Aspartate Amino Transferase 28 U/L (15-37); BUN Creatinine Ratio 32.3; Bilirubin Total 2.9 mg/dL (0.2-1.0); Calcium 8.3 mg/dL (8.5-10.1); Carbon Dioxide 24.2 mmol/L (21.0-32.0); Chloride 112 mmol/L (98-107); Estimated GFR (African America >60 (>=60); Estimated GFR (Non-African Ame 56 (>=60); Globulin 4.2 g/dL; Glucose 119 mg/dL (74-106); Potassium 4.1 mmol/L (3.5-5.1); Sodium 144 mmol/L (136-145); Total Protein 6.4 g/dL (6.4-8.2)
[2023-08-05 07:50] VITALS: BP 121/68; PULSE 69; RESP 18; TEMP 36.6; O2SAT 95
--- NOTE | 2023-08-05 09:07 | P.DS_ITS ---
<Statement entered by Gage Stewart MD - 08/05/23 19:05> Patient seen and examined, agree with assessment and plan below. History of pancytopenia and sent from ECF with worsening anemia. Given 2 units PRBC and improved. Strength improved and vitals stable. Discharged back to ECF in stable condition. Diagnosis: 1.Anemia 2. Pancytopenia 3. Hypotension 5. COPD DS: Providers Provider Date of admission: 08/04/23 11:22 Primary care physician: NAMAN CARBAJAL Discharging clinician: Pat Redding DS: Diagnosis Discharge Diagnosis (1) Severe anemia: (2) Pancytopenia: (3) Hypotension: (4) GERD (gastroesophageal reflux disease): (5) Hepatic failure: (6) Dysthymic disorder: (7) COPD (chronic obstructive pulmonary disease): DS: Summary Hospital Course Hospital Course: The patient was admitted to observation for recurrent severe anemia with known pancytopenia of unclear origin. She follows outpatient with oncology and we defer chronic management to their service. She received a total of 2 units of PRBCs in transfusion and tolerated this well. Her hemoglobin on the day of discharge had risen from 6.8 to 8.1 which is at or above her baseline. She is being discharged back to her home nursing care facility in stable condition. She should continue to follow with outpatient labs as previously ordered by her outpatient providers. She should follow-up with her oncologist as previously scheduled with her next visit believed to be in August. No new prescriptions are indicated at the time of discharge. Time Spent with Patient Time attestation: Total time spent providing and/or coordinating discharge services: Time spent: greater than 30 minutes Specific discharge activities: Physical exam, discussion of discharge plan, questions answered. Exam Constitutional Vital Signs, click to edit/add: Last Vital Signs Temp 97.9 F 08/05/23 07:50 Pulse 69 08/05/23 07:50 Resp 18 08/05/23 07:50 BP 121/68 08/05/23 07:50 Pulse Ox 95 08/05/23 07:50 O2 Del Method Room Air 08/05/23 07:50 HENMT Common normals: normocephalic and head/scalp atraumatic Eye Common normals: PERRL, EOMs intact bilaterally, conjunctivae normal and no scleral icterus Neck & C-Spine Common normals: no JVD Respiratory Common normals: normal respiratory effort and no use of accessory muscles Effort & inspection: able to speak in complete sentences and symmetric chest movement Auscultation: crackles (Fine, BLL) Cardio Common normals: no JVD, regular rate, regular rhythm, S1 normal heart sound, S2 normal heart sound, no murmurs and peripheral pulses 2+ throughout Heart sounds: murmur (HSM 3/6) GI Common normals: Normal to inspection, nondistended, normoactive bowel sounds present, soft to palpation and non-tender Bladder/kidney exam: bladder normal to palpation Extremity Common normals: normal to inspection, full ROM, normal capillary refill and no pedal edema General: no clubbing and no cyanosis Neuro Common normals: moves all extremities, no focal motor deficits and no sensory deficits noted Speech: speech normal Psych Common normals: mental status grossly normal and activity/motor behavior normal DS: Data Data Completed and Pending Labs on day of discharge: Labs from last 24 hours 08/05/23 08/04/23 08/04/23 05:37 21:07 16:31 WBC 1.4 L 1.6 L RBC 2.41 L 2.74 L Hgb 8.1 L 9.2 L 7.4 L Hct 25.6 L 28.4 L 23.7 L* MCV 106.2 H 103.6 H MCH 33.6 33.6 MCHC 31.6 32.4 RDW 20.8 H 20.3 H Plt Count 40 L 47 L MPV 10.9 11.1 Neut % (Auto) 52.4 55.7 Lymph % (Auto) 29.1 25.0 [place] % (Auto) 12.8 H 13.1 H Eos % (Auto) 5.0 5.0 Baso % (Auto) 0.7 0.6 Neut # (Auto) 0.7 L 0.9 L Lymph # (Auto) 0.4 L 0.4 L [place] # (Auto) 0.2 L 0.2 L Eos # (Auto) 0.1 0.1 Baso # (Auto) 0.0 0.0 Abs Immat Gran (auto) 0.00 0.01 Seg Neuts % (Manual) Band Neutrophils % Lymphocytes % (Manual) Monocytes % (Manual) Eosinophils % (Manual) Basophils % (Manual) Metamyelocytes % Myelocytes % Imm/Tot Granulo (auto) 0.0 0.6 H Neutrophils # (Manual) Band Neutrophils # Lymphocytes # (Manual) Monocytes # (Manual) Eosinophils # (Manual) Basophils # (Manual) Metamyelocytes # Myelocytes # Poikilocytosis Anisocytosis Tear Drop Cells Ovalocytes Sodium 144 Potassium 4.1 Chloride 112 H Carbon Dioxide 24.2 Anion Gap 11.9 BUN 32.0 H Creatinine 0.99 Est GFR ( Amer) >60 Est GFR (Non-Af Amer) 56 L BUN/Creatinine Ratio 32.3 Glucose 119 H Calcium 8.3 L Total Bilirubin 2.9 H AST 28 ALT 17 Alkaline Phosphatase 95 Troponin I High Sens Total Protein 6.4 Albumin 2.2 L Globulin 4.2 Albumin/Globulin Ratio 0.5 Blood Type Antibody Screen Crossmatch 08/04/23 08/04/23 09:17 09:09 WBC 1.2 L* RBC 1.90 L Hgb 6.8 L* Hct 21.5 L* MCV 113.2 H MCH 35.8 H MCHC 31.6 RDW 15.8 H Plt Count 47 L MPV 11.0 Neut % (Auto) Lymph % (Auto) [place] % (Auto) Eos % (Auto) Baso % (Auto) Neut # (Auto) Lymph # (Auto) [place] # (Auto) Eos # (Auto) Baso # (Auto) Abs Immat Gran (auto) Seg Neuts % (Manual) 52.0 Band Neutrophils % 2.0 Lymphocytes % (Manual) 26.0 Monocytes % (Manual) 8.0 Eosinophils % (Manual) 8.0 H Basophils % (Manual) 0.0 L Metamyelocytes % 2.0 Myelocytes % 2.0 Imm/Tot Granulo (auto) Neutrophils # (Manual) 0.62 L Band Neutrophils # 0.0 Lymphocytes # (Manual) 0.31 L Monocytes # (Manual) 0.09 L Eosinophils # (Manual) 0.09 Basophils # (Manual) 0.00 Metamyelocytes # 0.02 Myelocytes # 0.02 Poikilocytosis 1+ Anisocytosis 1+ Tear Drop Cells 1+ Ovalocytes 1+ Sodium 145 Potassium 4.3 Chloride 110 H Carbon Dioxide 26.2 Anion Gap 13.1 BUN 29.0 H Creatinine 1.17 H Est GFR ( Amer) 56 L Est GFR (Non-Af Amer) 46 L BUN/Creatinine Ratio 24.8 Glucose 145 H Calcium 9.1 Total Bilirubin 1.1 H AST 32 ALT 23 Alkaline Phosphatase 111 Troponin I High Sens 6.6 Total Protein 7.4 Albumin 2.7 L Globulin 4.7 Albumin/Globulin Ratio 0.6 Blood Type A Positive Antibody Screen Negative Crossmatch See Detail Discharge Plan [facility] Condition: Good Discharge Medications: Continued albuterol sulfate 90 mcg/actuation HFA aerosol inhaler 2 puff INHALATION Q4H PRN (Reason: shortness of breath or wheezing) fluticasone propionate 50 mcg/actuation spray,suspension 1 spray INTRANASAL DAILY PRN (Reason: allergy symptoms) lactulose [Enulose] 10 gram/15 mL solution 20 g PO BID Rx Instructions: at HS and AM loratadine 10 mg tablet,chewable 10 mg PO DAILY midodrine 10 mg tablet 10 mg PO TIDWM Rx Instructions: at AM afternoon and HS polyethylene glycol 3350 [ClearLax] 17 gram/dose powder 17 g PO DAILY polyvinyl alcohol [Artificial Tears (polyvin alc)] 1.4 % drops 1 drp ophthalmic (eye) QPM potassium chloride [Klor-Con 10] 10 mEq tablet extended release 20 meq PO DAILY Xifaxan 550 mg tablet 550 mg PO BID sertraline 25 mg tablet 12.5 mg PO Q24H Rx Instructions: at HS ursodiol 250 mg tablet 250 mg PO Q12H docusate sodium 100 mg capsule 100 mg PO DAILY magnesium oxide 400 mg magnesium tablet 400 mg PO DAILY acetaminophen 325 mg tablet 650 mg PO Q6H PRN (Reason: fever or pain) Cepacol Sore Throat (amy-men) 15-2.6 mg lozenge 1 hernan mucous membrane Q4H PRN (Reason: sore throat) cholecalciferol (vitamin D3) [Weekly-D] 1,250 mcg (50,000 unit) capsule 1,250 mcg PO QWEEK Rx Instructions: ON WEDNESDAY ondansetron HCl 4 mg tablet 4 mg PO Q8H PRN (Reason: nausea and vomiting) pantoprazole [Protonix] 40 mg tablet,delayed release (DR/EC) 40 mg PO DAILY trazodone 50 mg tablet 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 Forms: Portal Instructions Discharge Date/Time: 08/05/23 13:00
[2023-08-05] MEDS: DOCUSATE SODIUM 100 MG CAPSULE PO (09:14)
[2023-08-05] MEDS: POTASSIUM CHLORIDE 10 MEQ ER TABLET 20 MEQ PO (09:14)
[2023-08-05] MEDS: RIFAXIMIN 550 MG TABLET PO (09:14)
[2023-08-05] MEDS: MAGNESIUM OXIDE 400 MG TABLET PO (09:14)
[2023-08-05] MEDS: CETIRIZINE HCL 10 MG TABLET PO (09:14)
[2023-08-05] MEDS: MIDODRINE HCL 5 MG TABLET 10 MG PO (09:17)
[2023-08-05] MEDS: ARTIFICIAL TEARS 300 DROP/15 ML BOTTLE OP (09:23)
--- NOTE | 2023-08-05 10:24 | SWNOTE1 ---
SHORTY received message yesterday, 08/04/23, pt is from [facility]. SHORTY sent updates this morning to .
[2023-08-05] MEDS: URSODIOL 300 MG CAPSULE PO (10:39)
--- NOTE | 2023-08-05 10:59 | SWNOTE1 ---
SHORTY spoke with nursing and pt is discharged today. SHORTY left message and sent an email to admissions at [facility] to let them know. SHORTY printed udpates and dc orders and faxed to [facility].
--- NOTE | 2023-08-05 11:29 | SWNOTE1 ---
SHORTY sent discharge orders to [facility]. 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 SHORTY set up trips for 1:15-1:45. [facility] SW called and left voicemail for as well.
--- NOTE | 2023-08-05 12:08 | CM.NOTE ---
Rounds made with Dr. Stewart. Plan to return to [place] today [facility], as before. Valencia verbalizes understanding.
== END 2023-08-05 13:00 ==
LOC: ER 11:45 → MS 11:45
PROVIDERS: Admitting Provider Family Medicine; Emergency Provider Emergency Medicine; PCP Internal Medicine; Visit Provider Nurse Practitioner
DX: D64.9 Anemia, unspecified (principal); D61.818 Other pancytopenia; I95.9 Hypotension, unspecified; J44.9 Chronic obstructive pulmonary disease, unspecified; K21.9 Gastro-esophageal reflux disease without esophagitis; K72.10 Chronic hepatic failure without coma; F34.1 Dysthymic disorder; K74.60 Unspecified cirrhosis of liver; K75.4 Autoimmune hepatitis; H04.129 Dry eye syndrome of unspecified lacrimal gland; E78.5 Hyperlipidemia, unspecified; F32.A Depression, unspecified; Z87.891 Personal history of nicotine dependence; Z79.899 Other long term (current) drug therapy
CPT/HCPCS: 36415; 36430; 80053; 84484; 85007; 85014; 85018; 85025; 85027; 86850; 86900; 86901; 93005; 96374; 96375; 99285; G0378; J2405; P9016

== ENCOUNTER 2023-11-15 09:39 | Inpatient (IN) | payer MEDICAID, SELFPAY ==
[2023-11-15] VITALS (36 sets, daily range): BP systolic 106–129; BP diastolic 57–71; PULSE 61–85; TEMP 36.1–36.9; O2SAT 15–100; BMI 16.1; BMI 19.6
[2023-11-15 09:50] LABS: Glucometer 131 mg/dL (74-106)
--- NOTE | 2023-11-15 09:55 | ECG_ITS ---
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
--- NOTE | 2023-11-15 10:00 | ED.AMS1 ---
HPI - Altered Mental Status General Chief Complaint: Altered Mental Status Stated Complaint: GENERAL WEAKNESS Time Seen by Provider: 11/15/23 09:52 Source: other Source comment: EMS Mode of arrival: ambulance History of Present Illness HPI narrative: 68-year-old female presents from [facility] for altered mental status. She is unable to provide us any history. She was transported here by paramedics and she was sent here apparently because a friend was visiting her and the patient did not recognize the friend. She would normally do so. It is not clear when this started. No further history is obtainable. Related Data Home Medications ?Medication ?Instructions ?Recorded ?Confirmed albuterol sulfate 90 mcg/actuation 2 puff inhalation Q4H PRN 05/20/23 11/15/23 aerosol inhaler shortness of breath or wheezing docusate sodium 100 mg capsule 100 mg PO DAILY 05/20/23 11/15/23 fluticasone propionate 50 1 spray intranasal DAILY PRN 05/20/23 11/15/23 mcg/actuation nasal allergy symptoms spray,suspension lactulose 10 gram/15 mL oral 20 g PO BID 05/20/23 11/15/23 solution (Enulose) loratadine 10 mg chewable tablet 10 mg PO DAILY 05/20/23 11/15/23 midodrine 10 mg tablet 10 mg PO TIDWM 05/20/23 11/15/23 polyethylene glycol 3350 17 17 g PO DAILY 05/20/23 11/15/23 gram/dose oral powder (ClearLax) polyvinyl alcohol 1.4 % eye drops 1 drp ophthalmic (eye) QPM 05/20/23 11/15/23 (Artificial Tears (polyvinyl alcohol)) potassium chloride 10 mEq 20 meq PO DAILY 05/20/23 11/15/23 tablet,extended release (Klor-Con) rifaximin 550 mg tablet (Xifaxan) 550 mg PO BID 05/20/23 11/15/23 sertraline 25 mg tablet 12.5 mg PO Q24H 05/20/23 11/15/23 ursodiol 250 mg tablet 250 mg PO Q12H 05/20/23 11/15/23 acetaminophen 325 mg tablet 650 mg PO Q6H PRN fever or pain 08/04/23 11/15/23 benzocaine 15 mg-menthol 2.6 mg 1 hernan mucous membrane Q4H PRN sore 08/04/23 11/15/23 lozenges (Cepacol Sore Throat throat (benzocaine-menthol)) cholecalciferol (vitamin D3) 1,250 1,250 mcg PO QWEEK 08/04/23 11/15/23 mcg (50,000 unit) capsule (Weekly-D) magnesium oxide 400 mg PO DAILY 08/04/23 11/15/23 ondansetron HCl 4 mg tablet 4 mg PO Q8H PRN nausea and vomiting 08/04/23 11/15/23 pantoprazole 40 mg tablet,delayed 40 mg PO DAILY 08/04/23 11/15/23 release (Protonix) trazodone 50 mg tablet 50 mg PO QPM 08/04/23 11/15/23 Allergies Allergy/AdvReac Type Severity Reaction Status Date / Time No Known Drug Allergies Allergy Verified 05/20/23 18:30 Review of Systems ROS Narrative Unable to be obtained, altered mental status [facility] Medical History (Updated 11/15/23 @ 12:34 by Carlos Alberto Hdye MD) GERD (gastroesophageal reflux disease) ?K21.9 - Gastro-esophageal reflux disease without esophagitis (ICD-10) Hypotension ?I95.9 - Hypotension, unspecified (ICD-10) Protein calorie malnutrition ?E46 - Unspecified protein-calorie malnutrition (ICD-10) Vitamin D deficiency ?E55.9 - Vitamin D deficiency, unspecified (ICD-10) Dry eye syndrome ?H04.129 - Dry eye syndrome of unspecified lacrimal gland (ICD-10) Hernia ?K46.9 - Unspecified abdominal hernia without obstruction or gangrene (ICD-10) Hyperglycemia ?R73.9 - Hyperglycemia, unspecified (ICD-10) Hyperlipemia ?E78.5 - Hyperlipidemia, unspecified (ICD-10) Hepatic failure ?K72.90 - Hepatic failure, unspecified without coma (ICD-10) Cirrhosis of liver ?K74.60 - Unspecified cirrhosis of liver (ICD-10) Dysthymic disorder ?F34.1 - Dysthymic disorder (ICD-10) Depression ?F32.A - Depression, unspecified (ICD-10) COPD (chronic obstructive pulmonary disease) ?J44.9 - Chronic obstructive pulmonary disease, unspecified (ICD-10) Autoimmune hepatitis ?K75.4 - Autoimmune hepatitis (ICD-10) Surgical History (Updated 08/04/23 @ 11:58 by Jennifer Esteban) H/O: hysterectomy ?Z90.710 - Acquired absence of both cervix and uterus (ICD-10) History of cholecystectomy ?Z90.49 - Acquired absence of other specified parts of digestive tract (ICD-10) Previous back surgery ?Z98.890 - Other specified postprocedural states (ICD-10) Family History (Updated 08/04/23 @ 12:00 by Jennifer Esteban) Other Family history not known due to adoption Social History (Updated 05/20/23 @ 20:55 by Lara Hubbard RN) Within the past year, how often did you have a drink containing alcohol: never Within the past year, how often did you have six or more drinks on one occasion: never Score interpretation: A score less than 3 is consistent with normal alcohol consumption. Smoking status: Former smoker Non-prescribed substance use: denies use Previous occupational history: retired Known occupational exposures/hazards: No Highest level of school completed/degree received: high school graduate Do you want help with school or training: No Are you now , , , , never or living with a partner: never Little interest or pleasure in doing things: not at all Feeling down, depressed, or hopeless: not at all Feel stressed/tense/nervous/anxious/difficulty sleeping: not at all Do you think of yourself as: straight/heterosexual Gender Identity: female Exam Narrative Exam Narrative: Nurses note and vital signs reviewed and patient is not hypoxic. General: The patient appears in no acute respiratory distress. Her eyes are open. Skin: Warm, dry, no pallor noted. There are several bruises on her arms. Head: Normocephalic, atraumatic Eye: Normal conjunctiva, no drainage Ears, Nose, Mouth, and Throat: oral mucosa is moist. Nares patent. Cardiovascular: Regular Rate and Rhythm Respiratory: Patient is in no distress, no accessory muscle use, lungs are clear to auscultation, no wheezing, rales or rhonchi GI: Soft and nontender and nondistended Musculoskeletal: The patient has no evidence of calf tenderness, no pitting edema, symmetrical pulses noted bilaterally Neurological: She is awake. She does not follow commands. When I said hi she said hi Psychiatric: Cannot be assessed Constitutional Vital Signs, click to edit/add: Last Vital Signs Temp 98.4 F 11/15/23 09:42 Pulse 66 11/15/23 13:00 Resp 16 11/15/23 13:00 BP 125/68 11/15/23 13:00 Pulse Ox 99 11/15/23 13:00 O2 Del Method Room Air 11/15/23 09:42 Course Vital Signs Vital signs: Vital Signs Temperature 98.4 F 11/15/23 09:42 Pulse Rate 69 11/15/23 09:42 Respiratory Rate 18 11/15/23 09:42 Blood Pressure 129/69 11/15/23 09:42 Pulse Oximetry 100 11/15/23 09:42 Oxygen Delivery Method Room Air 11/15/23 09:42 Temperature 98.4 F 11/15/23 09:42 Pulse Rate 66 11/15/23 13:00 Respiratory Rate 16 11/15/23 13:00 Blood Pressure 125/68 11/15/23 13:00 Pulse Oximetry 99 11/15/23 13:00 Oxygen Delivery Method Room Air 11/15/23 09:42 MDM - Altered Mental Status MDM Narrative Medical decision making narrative: Ammonia level is elevated at 129. She appears to have a history of liver disease but the type is not specified. No family is here to give any history and the detention records have limited history as well. The rest of her workup including CT brain is negative. She is being admitted. Differential Diagnosis Differential diagnosis: Likely altered mental status, dementia, hypoglycemia, hyponatremia and OTHER (Hyperammonemia, electrolyte imbalance, UTI) Lab Data Attestation: I reviewed the patient's lab results. Labs: Lab Results 11/15/23 11/15/23 11/15/23 Range/Units 09:48 09:49 09:57 WBC 1.5 L (4.0-11.0) 10^3/uL RBC 2.72 L (4.20-5.40) 10^6/uL Hgb 9.6 L (12.0-16.0) g/dL Hct 29.8 L (36.0-48.0) % MCV 109.6 H (81.0-99.0) fL MCH 35.3 H (26.7-34.0) pg MCHC 32.2 (29.9-35.2) g/dL RDW 15.6 H (11.0-15.0) % Plt Count 46 L (150-450) 10^3/uL MPV 11.2 (9.5-13.5) fL Seg Neuts % (Manual) 44.0 Lymphocytes % (Manual) 46.0 (20.5-60.0) % Monocytes % (Manual) 4.0 (1.7-12.0) % Eosinophils % (Manual) 2.0 (0.9-7.0) % Basophils % (Manual) 0.0 L (0.2-2.0) % Metamyelocytes % 2.0 Neutrophils # (Manual) 0.66 L (1.4-6.5) 10^3/uL Lymphocytes # (Manual) 0.69 L (1.20-3.80) 10^3/uL Monocytes # (Manual) 0.06 L (0.30-0.80) 10^3/uL Eosinophils # (Manual) 0.03 (0.00-0.70) 10^3/uL Basophils # (Manual) 0.00 (0.00-0.10) 10^3/uL Metamyelocytes # 0.03 Anisocytosis 1+ Macrocytosis 1+ Sodium 141 (136-145) mmol/L Potassium 4.3 (3.5-5.1) mmol/L Chloride 109 H (98-107) mmol/L Carbon Dioxide 20.5 L (21.0-32.0) mmol/L Anion Gap 15.8 BUN 26.0 H (7.0-18.0) mg/dL Creatinine 1.11 H (0.55-1.02) mg/dL Est GFR ( Amer) 59 L (>=60) Est GFR (Non-Af Amer) 49 L (>=60) BUN/Creatinine Ratio 23.4 Glucose 125 H (74-106) mg/dL Lactate 1.3 (0.4-2.0) mmol/L Calcium 9.6 (8.5-10.1) mg/dL Total Bilirubin (0.2-1.0) mg/dL Direct Bilirubin (0.0-0.2) mg/dL AST (15-37) U/L ALT (14-59) U/L Alkaline Phosphatase (46-116) U/L Ammonia (11-32) umol/L Total Protein (6.4-8.2) g/dL Albumin (3.4-5.0) g/dL Globulin g/dL Albumin/Globulin Ratio Urine Color (YELLOW) Urine Clarity (CLEAR) Urine pH (5.0-9.0) Ur Specific [place] (1.005-1.025) Urine Protein (NEG/TRACE) mg/dL Urine Glucose (UA) (NEGATIVE) mg/dL Urine Ketones (NEGATIVE) mg/dL Urine Occult Blood (NEGATIVE) Urine Nitrite (NEGATIVE) Urine Bilirubin (NEGATIVE) Urine Urobilinogen (0.2-1.0) EU/dL Ur Leukocyte Esterase (NEGATIVE) Urine RBC (0-2) #/HPF Urine WBC (NONE SEEN) #/HPF Ur Squamous Epith Cells (NONE/RARE) #/LPF Urine Crystals (None Seen) #/HPF Urine Bacteria (NONE SEEN) #/HPF Urine Casts (NONE SEEN) #/LPF Urine Mucus (NONE SEEN) POC Glucose 131 H (74-106) mg/dL 11/15/23 11/15/23 11/15/23 Range/Units 10:13 10:17 12:04 WBC (4.0-11.0) 10^3/uL RBC (4.20-5.40) 10^6/uL Hgb (12.0-16.0) g/dL Hct (36.0-48.0) % MCV (81.0-99.0) fL MCH (26.7-34.0) pg MCHC (29.9-35.2) g/dL RDW (11.0-15.0) % Plt Count (150-450) 10^3/uL MPV (9.5-13.5) fL Seg Neuts % (Manual) Lymphocytes % (Manual) (20.5-60.0) % Monocytes % (Manual) (1.7-12.0) % Eosinophils % (Manual) (0.9-7.0) % Basophils % (Manual) (0.2-2.0) % Metamyelocytes % Neutrophils # (Manual) (1.4-6.5) 10^3/uL Lymphocytes # (Manual) (1.20-3.80) 10^3/uL Monocytes # (Manual) (0.30-0.80) 10^3/uL Eosinophils # (Manual) (0.00-0.70) 10^3/uL Basophils # (Manual) (0.00-0.10) 10^3/uL Metamyelocytes # Anisocytosis Macrocytosis Sodium (136-145) mmol/L Potassium (3.5-5.1) mmol/L Chloride (98-107) mmol/L Carbon Dioxide (21.0-32.0) mmol/L Anion Gap BUN (7.0-18.0) mg/dL Creatinine (0.55-1.02) mg/dL Est GFR ( Amer) (>=60) Est GFR (Non-Af Amer) (>=60) BUN/Creatinine Ratio Glucose (74-106) mg/dL Lactate (0.4-2.0) mmol/L Calcium (8.5-10.1) mg/dL Total Bilirubin 1.5 H (0.2-1.0) mg/dL Direct Bilirubin 0.5 H (0.0-0.2) mg/dL AST 48 H (15-37) U/L ALT 40 (14-59) U/L Alkaline Phosphatase 112 (46-116) U/L Ammonia 129 H* (11-32) umol/L Total Protein 7.6 (6.4-8.2) g/dL Albumin 2.8 L (3.4-5.0) g/dL Globulin 4.8 g/dL Albumin/Globulin Ratio 0.6 Urine Color Yellow (YELLOW) Urine Clarity Clear (CLEAR) Urine pH 6.5 (5.0-9.0) Ur Specific [place] 1.015 (1.005-1.025) Urine Protein Negative (NEG/TRACE) mg/dL Urine Glucose (UA) Negative (NEGATIVE) mg/dL Urine Ketones Negative (NEGATIVE) mg/dL Urine Occult Blood Negative (NEGATIVE) Urine Nitrite Negative (NEGATIVE) Urine Bilirubin Negative (NEGATIVE) Urine Urobilinogen 1.0 (0.2-1.0) EU/dL Ur Leukocyte Esterase Negative (NEGATIVE) Urine RBC 0-2 (0-2) #/HPF Urine WBC 0-2 A (NONE SEEN) #/HPF Ur Squamous Epith Cells Rare (NONE/RARE) #/LPF Urine Crystals None seen (None Seen) #/HPF Urine Bacteria None seen (NONE SEEN) #/HPF Urine Casts None seen (NONE SEEN) #/LPF Urine Mucus None seen (NONE SEEN) POC Glucose (74-106) mg/dL Imaging Data Chest x-ray: Radiologist's impression: ITS Impressions Chest X-Ray 11/15/23 10:45 IMPRESSION: Low volume exam, clear lungs Electronically authenticated by: ANGEL CADE Date: 11/15/2023 11:[address] 11/15/23 10:45 IMPRESSION: 1. No acute large vascular territory infarct or acute intracranial hemorrhage. 2. Similar age advanced supratentorial white matter change. While nonspecific this most commonly relates to sequela small vessel disease. Electronically authenticated by: KJ RAI Date: 11/15/2023 11:05 ECG Data Attestation: I personally reviewed and interpreted this ECG as follows: (EKG on my interpretation shows sinus rhythm without acute change and a rate of 66) Discharge Plan Discharge Chief Complaint: Altered Mental Status Clinical Impression: Hyperammonemia Patient Disposition: Admitted As Inpatient Time of Disposition Decision: 12:34 Condition: Fair
[2023-11-15] MEDS: 0.9 % SODIUM CHLORIDE 1,000 ML 1000 ML IV (10:24)
[2023-11-15 10:35] LABS: Hematocrit 29.8 % (36.0-48.0); Hemoglobin 9.6 g/dL (12.0-16.0); Mean Corpuscular HGB Conc 32.2 g/dL (29.9-35.2); Mean Corpuscular Hemoglobin 35.3 pg (26.7-34.0); Mean Corpuscular Volume 109.6 fL (81.0-99.0); Mean Platelet Volume 11.2 fL (9.5-13.5); Platelet Count 46 10^3/uL (150-450); Red Blood Count 2.72 10^6/uL (4.20-5.40); Red Cell Distribution Width 15.6 % (11.0-15.0); White Blood Count 1.5 10^3/uL (4.0-11.0)
[2023-11-15 10:39] LABS: Bilirubin Urine NEGATIVE (NEGATIVE); Blood Urine NEGATIVE (NEGATIVE); Clarity Urine CLEAR (CLEAR); Color Urine YELLOW (YELLOW); Glucose Urine UA NEGATIVE (NEGATIVE); Ketones Urine NEGATIVE (NEGATIVE); Leukocyte Esterase Urine NEGATIVE (NEGATIVE); Nitrite Urine NEGATIVE (NEGATIVE); Protein Urine NEGATIVE (NEG/TRACE); Specific Gravity Urine 1.015 (1.005-1.025); pH Urine 6.5 (5.0-9.0)
[2023-11-15 10:43] LABS: Anion Gap 15.8; BUN Creatinine Ratio 23.4; Calcium 9.6 mg/dL (8.5-10.1); Carbon Dioxide 20.5 mmol/L (21.0-32.0); Chloride 109 mmol/L (98-107); Estimated GFR (African America 59 (>=60); Estimated GFR (Non-African Ame 49 (>=60); Glucose 125 mg/dL (74-106); Potassium 4.3 mmol/L (3.5-5.1); Sodium 141 mmol/L (136-145)
--- NOTE | 2023-11-15 10:45 | CT_ITS ---
The [address] [address] Patient Name: LANEY LARIOS MRN: [id number] date: 1955 Sex: F Assigned Patient Location: ER Current Patient Location: ER Accession/Order Number: [id number] Exam Date: 11/15/2023 10:35 Report Date: 11/15/2023 11:05 At the request of: ABDIEL KAYE Procedure: CT head/brain wo con EXAM: CT head/brain wo con HISTORY: Altered mental status COMPARISON: CT head 01/07/2018. TECHNIQUE: Axial noncontrast CT imaging of the head was performed with coronal and sagittal reformats. FINDINGS: Calvarium/skull base: No evidence of acute fracture or destructive lesion. Mastoids and middle ears demonstrate no substantial mucosal disease. Bilateral [place] ocular lens replacements. Paranasal sinuses: No air fluid levels. Brain: No acute intracranial hemorrhage. No acute large vascular territory infarct. Similar symmetric peripheral predominant patchy hypoattenuation is present involving the supratentorial white matter which is advanced for age. No mass lesion or mass effect. No hydrocephalus. CT/CT head/brain wo con IMPRESSION: 1. No acute large vascular territory infarct or acute intracranial hemorrhage. 2. Similar age advanced supratentorial white matter change. While nonspecific this most commonly relates to sequela small vessel disease. Electronically authenticated by: KJ RAI Date: 11/15/2023 11:05
--- NOTE | 2023-11-15 10:45 | XR_ITS ---
The [address] [address] Patient Name: LANEY LARIOS MRN: [id number] date: 1955 Sex: F Assigned Patient Location: ER Current Patient Location: ER Accession/Order Number: [id number] Exam Date: 11/15/2023 10:35 Report Date: 11/15/2023 11:08 At the request of: ABDIEL KAYE Procedure: XR chest 1V EXAMINATION: XR chest 1V HISTORY: Altered mental status COMPARISON: 01/07/2018 TECHNIQUE: AP portable FINDINGS: LUNGS: No significant pulmonary parenchymal abnormalities. Low lung volumes VASCULATURE: No increased pulmonary vasculature. PLEURA: No pneumothorax, effusion, or pleural thickening. CARDIAC: No cardiomegaly or cardiac silhouette abnormality. MEDIASTINUM: No visible mass or adenopathy. Aortic atherosclerosis BONES: No fracture or visible bone lesion. OTHER: Negative. XR/XR chest 1V IMPRESSION: Low volume exam, clear lungs Electronically authenticated by: ANGEL CADE Date: 11/15/2023 11:08
[2023-11-15 10:47] LABS: Bacteria Urine NONE SEEN #/HPF (NONE SEEN); Cast Seen? NONE SEEN #/LPF (NONE SEEN); Crystals Seen? None Seen #/HPF (None Seen); Mucus Urine NONE SEEN (NONE SEEN); RBC Urine 0-2 #/HPF (0-2); Squamous Epithelial Cell Urine RARE #/LPF (NONE/RARE); WBC Urine 0-2 #/HPF (NONE SEEN)
[2023-11-15 10:50] LABS: Lactate/Lactic Acid 1.3 mmol/L (0.4-2.0)
[2023-11-15 11:03] LABS: Segmented Neut Absolute Manual 0.66 10^3/uL (1.4-6.5)
[2023-11-15 11:04] LABS: Anisocytosis 1+; Eosinophils Absolute Manual 0.03 10^3/uL (0.00-0.70); Lymphocytes Absolute Manual 0.69 10^3/uL (1.20-3.80); Macrocytosis 1+; Metamyelocytes Absolute Manual 0.03; Monocytes Absolute Manual 0.06 10^3/uL (0.30-0.80)
[2023-11-15 12:05] LABS: Alanine Aminotransferase 40 U/L (14-59); Albumin Globulin Ratio 0.6; Albumin Level 2.8 g/dL (3.4-5.0); Alkaline Phosphatase 112 U/L (46-116); Aspartate Amino Transferase 48 U/L (15-37); Bilirubin Direct 0.5 mg/dL (0.0-0.2); Bilirubin Total 1.5 mg/dL (0.2-1.0); Globulin 4.8 g/dL; Total Protein 7.6 g/dL (6.4-8.2)
[2023-11-15 12:23] LABS: Ammonia 129 umol/L (11-32)
--- OUTSIDE RECORDS SUMMARY | 2023-11-15 14:20 | XMS_ITS | CCD ---
Author Organization [facility] Care Team Providers Care Bartenders Name Role Phone KEKE, MICHAEL BRYAN Unavailable Unavailable PEÑA, YOUNG IN Unavailable Unavailable KEKE, MICHAEL BRYAN Unavailable Unavailable PEÑA, YOUNG IN Unavailable Unavailable FANNING, CAESAR E Unavailable Unavailable FANNING, CAESAR E Unavailable Unavailable Peña, Young Mi Unavailable PEÑA, YOUNG IN Unavailable Unavailable NO, PHYSICIAN Unavailable Unavailable PEÑA, YOUNG IN Unavailable Unavailable NO, PHYSICIAN Unavailable Unavailable PEÑA, YOUNG IN Unavailable Unavailable PEÑA, YOUNG IN Unavailable Unavailable PEÑA, YOUNG IN Unavailable Unavailable PEÑA, YOUNG IN Unavailable Unavailable PEÑA, YOUNG IN Unavailable Unavailable NYYOANA URENA BOBBY Unavailable Unavailable PEÑA, YOUNG IN Unavailable Unavailable KEKE, MICHAEL BRYAN Unavailable Unavailable KEKE, MICHAEL BRYAN Unavailable Unavailable PEÑA, YOUNG IN Unavailable Unavailable KEKE, MICHAEL BRYAN Unavailable Unavailable KEKE, MICAHEL BRYAN Unavailable Unavailable PEÑA, YOUNG IN Unavailable Unavailable KEKE, MICHAEL BRYAN Unavailable Unavailable REICHGILDA, YOANA P Unavailable Unavailable KEKE, MICHAEL BRYAN Unavailable Unavailable PEÑA, YOUNG IN Unavailable Unavailable PEÑA, YOUNG IN Unavailable Unavailable DEL CHRISTIANSON Unavailable Unavailable Peña, [...] Referring Unavailable SELF, REFERRED Primary Care Unavailable [place] Procedure Practitioner Unavailab JULIANO Hernandez Surgeon Unavailable JULIANO LUCAS Attending Unavailable JULIANO LUCAS Admitting Unavailable KAMILAH, ADE Admitting Unavailable KAMILAH, ADE Attending Unavailable LAY, SHO Referring Unavailable TAN, ADE Admitting Unavailable TAN, ADE Attending Unavailable KOBEIJESSIEY, ANGELO Referring Unavailable NAWAYLON SEXTON Attending Unavailable TAN, ADE Referring Unavailable LAY, SHO Attending Unavailable LAY, SHO Attending Unavailable LAY, SHO Attending Unavailable LAY, SHO Attending Unavailable HEMANT, MARVIN N Attending Unavailable HEMANT, WONG N Referring Unavailable LÓPEZ, ALBERTO N Primary Care Unavailable NAMAN CARBAJAL Referring Unavailable LÓPEZ, ALBERTO N Primary Care Unavailable HEMANT, WONG N Referring Unavailable LÓPEZ, ALBERTO N Primary Care Unavailable LÓPEZ, ALBERTO N Referring Unavailable LÓPEZ, ALBERTO N Primary Care Unavailable HEMANT, WONG N Attending Unavailable HEMANT, WONG N Referring Unavailable LÓPEZ, ALBERTO N Primary Care Unavailable PAUL, SHO Canseco Referring Unavailable LÓPEZ, ALBERTO N Primary Care Unavailable HEMANT, WONG N Referring Unavailable LÓPEZ, ALBERTO N Primary Care Unavailable LÓPEZ, ALBERTO N Referring Unavailable LÓPEZ, ABLERTO N Primary Care Unavailable Medications Current Medications Medication Drug Class(es) [...] Classification Problem Date Documented Da te Episodic/Chronic Anxiety disorders (2 sources) Generalized anxiety disorder; Translations: [Generalized anxiety disorder] Onset: 06-24-2017 Chronic Chronic obstructive pulmonary disease and bronchiectasis (1 source) Chronic obstructive pulmonary disease, unspecified; Translations: [COPD UNSPECIFIED] Onset: 09-08-2021 Chronic Deficiency and other anemia (1 source) Other pancytopenia; Translations: [OTHER PANCYTOPENIA] Onset: 09-08-2021 Chronic Esophageal disorders (4 sources) Gastro-esophageal reflux disease without esophagitis; Translations: [Esophageal varices without bleeding] Onset: 10-14-2022 Chronic Essential hypertension (1 source) Essential (primary) hypertension; Translations: [ESSENTIAL PRIMARY HYPERTENSION] Onset: 09-08-2021 Chronic External Injury - Fall (2 sources) Unspecified fall, initial encounter; Translations: [Unspecified fall, initial encounter] Onset: 08-03-2017 Hepatitis (4 sources) Autoimmune hepatitis; Translations: [AUTOIMMUNE HEPATITIS] Onset: 09-08-2021 Chronic Mood disorders (3 sources) Major depressive disorder, recurrent severe without psychotic features; Translations: [Major depressive disorder, single episode, unspecified] Onset: 06-24-2017 Chronic Other aftercare (1 source) Other lobsterman (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) drug therapy; Translations: [OTH FPC CURRENT DRUG THERAPY] Onset: 09-08-2021 Episodic Other liver diseases (2 sources) Hepatic failure, unspecified without coma; Translations: [Hepatic failure, unspecified without coma] Onset: 01-08-2018 Chronic Other liver diseases (3 sources) Unspecified cirrhosis of liver; Translations: [UNSPECIFIED CIRRHOSIS OF LIVER] Onset: 09-08-2021 Chronic Other liver diseases (1 source) Hepatic failure, unspecified without coma; Translations: [HEPATIC FAILURE UNS WITHOUT COMA] Onset: 09-08-2021 Episodic Other nutritional; endocrine; and metabolic disorders (2 sources) Hereditary hemochromatosis; Translations: [Hereditary hemochromatosis] Onset: 06-16-2022 Chronic Residual codes; unclassified (2 sources) Altered mental [...] [CONTACT W/AND (SUSP) EXPOS COVID-19] Onset: 09-08-2021 Unclassified (1 source) Outpatient Infusion Onset: 10-05-2023 Urinary tract infections (3 sources) Acute urinary tract infection; Translations: [Urinary tract infection, site not specified] Onset: 01-08-2018 Episodic Past or Other Problems Problem Classification Problem Date Documented Da te Episodic/Chronic Abdominal pain (2 sources) Generalized abdominal pain; Translations: [Generalized abdominal pain] Onset: 03-26-2023 Episodic Deficiency and other anemia (1 source) Anemia, unspecified; Translations: [Anemia, unspecified] Onset: 03-13-2023 Episodic Fluid and electrolyte disorders (3 sources) Hypokalemia; [...] of other serum enzymes] Onset: 07-02-2017 Episodic Pancreatic disorders (not diabetes) (3 sources) Cyst of pancreas; Translations: [Cyst of pancreas] Onset: 06-12-2022 Episodic Skull and face fractures (2 sources) Maxillary fracture, unspecified side, initial encounter for closed fracture; Translations: [Maxillary fracture, unspecified side, initial encounter for closed fracture] Onset: 08-03-2017 Episodic Unclassified (6 sources) Other specified abnormal findings of blood chemistry; Translations: [Encounter for screening for lipoid disorders] Onset: 07-02-2017 Episodic Results Test Name Value Interpretation Reference Range Facility CBC AND AUTO DIFFon 09-29-19 Eosinophils (Bld) [#/Vol] 0.1 10*3/uL Normal 0.0-0.4 [facility] Comment on above: Performed By: #### C BCA #### [facility] ([id number]) [address] [place] [address]606 Eosinophils/100 WBC (Bld) 3.0 % Normal [facility] Comment on above: Performed By: #### C BCA #### [facility] ([id number]) [address] [place] [address] 89369 Erythrocyte distribution width (RBC) [Ratio] 17.3 % High 11.5-15.0 [facility] Comment on above: Performed By: #### C BCA #### [facility] ([id number]) [address] [place] [address] 36225 Hematocrit (Bld) [Volume fraction] 24.5 % Low 35-47 [facility] Comment on above: Performed By: #### C BCA #### [facility] ([id number]) [address] [place] [address] 25588 Hemoglobin (Bld) [Mass/Vol] 8.4 g/dL Low 11.7-15.5 [facility] Comment on above: Performed By: #### C BCA #### [facility] ([id number]) [address] [place] [address] 26669 IMMATURE MONONUCLEAR 1.0 % Normal [facility] Comment on above: Performed By: #### C BCA #### [facility] ([id number]) [address] [place] [address] 70786 LYMPHOCYTE, ATYPICAL 5.0 % Normal [facility] Comment on above: Performed By: #### C BCA #### [facility] ([id number]) [address] [place] [address] 87133 Lymphocytes (Bld) [#/Vol] 0.4 10*3/uL Low 1.0-3.5 [facility] Comment on above: Performed By: #### C BCA #### [facility] ([id number]) [address] [place] [address] 44329 Lymphocytes/100 WBC (Bld) 18.0 % Normal [facility] Comment on above: Performed By: #### C BCA #### [facility] ([id number]) [address] [place] [address] [place] [address] MCH (RBC) [Entitic mass] 35.7 pg High 27-34 [facility] Comment on above: Performed By: #### C BCA #### [facility] ([id number]) [address] [place] [address] 24432 MCHC (RBC) [Mass/Vol] 34.5 g/dL Normal 32-36 [facility] Comment on above: Performed By: #### C BCA #### [facility] ([id number]) [address] [place] [address] 95146 MCV (RBC) [Entitic vol] 104 fL High 80-100 [facility] Comment on above: Performed By: #### C BCA #### [facility] ([id number]) [address] [place] [address] 83870 Monocytes (Bld) [#/Vol] 0.2 10*3/uL Normal 0-0.9 [facility] Comment on above: Performed By: #### C BCA #### [facility] ([id number]) [address] [place] [address] 14024 Monocytes/100 WBC (Bld) 9.0 % Normal [facility] Comment on above: Performed By: #### C BCA #### [facility] ([id number]) [address] [place] [address] 65461 Neutrophils (Bld) [#/Vol] 1.2 10*3/uL Low 1.5-6.6 [facility] Comment on above: Performed By: #### C BCA #### [facility] ([id number]) [address] [place] [address] 06848 Platelet mean volume (Bld) [Entitic vol] 9.7 fL Normal 7-12 [facility] Comment on above: Performed By: #### C BCA #### [facility] ([id number]) [address] [place] [address] 46050 Platelets (Bld) [#/Vol] 30 10*3/uL Low 150-450 [facility] Comment on above: Result Comment: PLAT ELETS REVIEWED Performed By: #### C BCA #### [facility] ([id number]) [address] [place] [address] 11842 RBC COUNT 2.37 X10E12/L Low 3.80-5.20 [facility] Comment on above: Performed By: #### C BCA #### [facility] ([id number]) [address] [place] [address] 06511 RBC morphology finding Nom (Bld) REVIEWED Normal [facility] Comment on above: Performed By: #### C BCA #### [facility] ([id number]) [address] [place] [address] 99841 SEG NEUTROPHIL 64.0 % Normal [facility] Comment on above: Performed By: #### C BCA #### [facility] ([id number]) [address] [place] [address] 76455 WBC (Bld) [#/Vol] 1.9 10*3/uL Low 4.0-11.0 [facility] Comment on above: Performed By: #### C BCA #### [facility] ([id number]) [address] [place] [address] 97234 CBC WITH AUTO DIFFERENTIALon 09-28-2023 Erythrocyte distribution width (RBC) [Ratio] 17.2 % High 11.5-15.0 [facility] Comment on above: Performed By: #### L [id number] #### [facility] (BEAKER) [address] [place] [address] ERYTHROCYTE MEAN CORPUSCULAR HEMOGLOBIN CONCENTRATION (G/DL) BY AUTOMATED 34.0 g/dL Normal 32.0-35.0 [facility] Comment on above: Performed By: #### L [id number] #### [facility] ([facility]) [address] [place] [address] Hematocrit (Bld) [Volume fraction] 25.6 % Low 36.0-48.0 [facility] Comment on above: Performed By: #### L [id number] #### [facility] ([facility]) [address] [place] [address] Hemoglobin (Bld) [Mass/Vol] 8.7 g/dL Low 12.0-15.0 [facility] Comment on above: Performed By: #### L [id number] #### [facility] ([facility]) [address] [place] [address] IMMATURE PLATELET FRACTION % 3.5 % Normal 0.8-6.3 [facility] Comment on above: Performed By: #### L [id number] #### [facility] ([facility]) [address] [place] [address] MCH (RBC) [Entitic mass] 36.0 pg High 27.0-33.0 [facility] Comment on above: Performed By: #### L [id number] #### [facility] ([facility]) [address] [place] [address] MCV (RBC) [Entitic vol] 105.8 fL High 82.0-98.0 [facility] Comment on above: Performed By: #### L [id number] #### [facility] ([facility]) [address] [place] [address] NRBC (PER 100 WBCS) BY AUTOMATED COUNT 0.0 % Normal 0 [facility] Comment on above: Performed By: #### L [id number] #### [facility] ([facility]) [address] [place] [address] PLATELETS (10*3/UL) IN BLOOD AUTOMATED COUNT 44 10*3/uL Low 150-400 [facility] Comment on above: Performed By: #### L [id number] #### [facility] ([facility]) [address] [place] [address] RBC (Bld) [#/Vol] 2.42 10*6/uL Low 3.80-5.00 [facility] Comment on above: Performed By: #### L [id number] #### [facility] ([facility]) [address] [place] [address] WBC (Bld) [#/Vol] 1.79 10*3/uL Low 4.00-10.60 [facility] Comment on above: Performed By: #### L [id number] #### [facility] ([facility]) [address] [place] [address] MANUAL DIFFERENTIALon 2023 ANISOCYTOSIS PRESENCE IN BLOOD BY LIGHT MICROSCOPY Moderate Normal [facility] Comment on above: Performed By: #### L [id number] ####[facility] ([facility])[address] [place] [address] BASOPHILS (10*3/UL) IN BLOOD BY CALCULATION 0.00 10*3/uL Normal 0.00-0.20 [facility] Comment on above: Performed By: #### L [id number] ####[facility] ([facility])[address] [place] [address] BASOPHILS/100 LEUKOCYTES IN BLOOD BY AUTOMATED COUNT 0.0 % Normal 0.0-1.0 [facility] Comment on above: Performed By: #### L [id number] ####[facility] ([facility])[address] [place] [address] EOSINOPHILS (10*3/UL) IN BLOOD BY CALCULATION 0.07 10*3/uL Normal 0.00-0.50 [facility] Comment on above: Performed By: #### L [id number] ####[facility] ([facility])[address] [place] [address] EOSINOPHILS/100 LEUKOCYTES IN BLOOD BY AUTOMATED COUNT 4.0 % Normal 0.0-6.0 [facility] Comment on above: Performed By: #### L [id number] ####[facility] ([facility])[address] [place] [address] IMMATURE GRANULOCYTES (10*3/UL) IN BLOOD BY CALCULATION 0.00 10*3/uL Normal 0.00-0.20 [facility] Comment on above: Performed By: #### L [id number] ####[facility] ([facility] [place] [address] IMMATURE GRANULOCYTES/100 LEUKOCYTES IN BLOOD BY AUTOMATED COUNT 0.0 % Normal 0.0-1.0 [facility] Comment on above: Performed By: #### L [id number] ####[facility] ([facility])[address] [place] [address] LYMPHOCYTES (10*3/UL) IN BLOOD BY CALCULATION 0.54 10*3/uL Low 1.20-4.00 [facility] Comment on above: Performed By: #### L [id number] ####[facility] ([facility])[address] [place] [address] LYMPHOCYTES/100 LEUKOCYTES IN BLOOD BY AUTOMATED COUNT 30.2 % Normal 20.0-45.0 [facility] Comment on above: Performed By: #### L [id number] ####[facility] ([facility])[address] [place] [address] MACROCYTES (PRESENCE) IN BLOOD BY LIGHT MICROSCOPY Slight Normal [facility] Comment on above: Performed By: #### L [id number] ####[facility] ([facility])[address] [place] [address] MONOCYTES (10*3/UL) IN BLOOD BY CALCUATION 0.12 10*3/uL Normal 0.10-1.00 [facility] Comment on above: Performed By: #### L [id number] ####[facility] ([facility])[address] [place] [address] MONOCYTES/100 LEUKOCYTES IN BLOOD BY AUTOMATED COUNT 6.7 % Normal 5.0-12.0 [facility] Comment on above: Performed By: #### L [id number] ####[facility] ([facility] [place] [address] NEUTROPHILS (10*3/UL) IN BLOOD BY CALCULATION 1.1 10*3/uL Low 1.6-7.6 [facility] Comment on above: Performed By: #### L [id number] ####[facility] ([facility] [place] [address] NEUTROPHILS/100 LEUKOCYTES IN BLOOD BY AUTOMATED COUNT 59.1 % Normal 40.0-72.0 [facility] Comment on above: Performed By: #### L [id number] ####[facility] ([facility])[address] [place] [address] PLASMA CELLS/100 LEUKOCYTES IN BLOOD 0 % Normal 0 [facility] Comment on above: Performed By: #### L [id number] ####[facility] ([facility])[address] [place] [address] PLATELETS GIANT PRESENCE IN BLOOD BY LIGHT MICROSCOPY Present Normal [facility] Comment on above: Performed By: #### L [id number] ####[facility] ([facility])[address] [place] [address] POIKILOCYTOSIS (PRESENCE) IN BLOOD BY LIGHT MICROSCOPY Slight Normal [facility] Comment on above: Performed By: #### L [id number] ####[facility] ([facility])[address] [place] [address] POLYCHROMASIA IN BLOOD BY LIGHT MICROSCOPY Slight Normal [facility] Comment on above: Performed By: #### L [id number] ####[facility] ([facility])[address] [place] [address] VARIANT LYMPHOCYTES (10*3/UL) IN BLOOD BY CALCULATION 0.00 10*3/uL Normal 0.00 [facility] Comment on above: Performed By: #### L [id number] ####[facility] ([facility])[address] [place] [address] VARIANT LYMPHOCYTES/100 LEUKOCYTES IN BLOOD CELLAVISION 0.0 % Normal 0.0-0.0 [facility] Comment on above: Performed By: #### L [id number] ####[facility] ([facility])[address] [place] [address] NURSNOTEon 09-28-2023 NURSNOTE [facility] Karis harvey, picked up pt to take back to facility. Normal [facility] ANTONIO Spoke with transport ation who will be taking pt back to facility and she is booked up until 3:00. The alf nurse director is coming to crab picker pt and eta is 1 hour from now. Normal [facility] Orders Onlyon 09-28-2023 Orders Only [id number] Laney Larios 1955 F Date Provider Department Center 09/28/2023 RadhaYADY GIBSON [facility] Family History Problem Relation Age of Onset Colon cancer Neg Hx Family Status - Relation Status Age at Neg Hx Normal [facility] POCT GLUCOSE METER UNSOLICIT ED RESULTSon 09-28-2023 Glucose [Mass/Vol] 129 mg/dL High 70-105 [facility] Comment on above: Order Comment: Waive d Testing in the ED is performed under the ED CLIA certificate #[id number]. Result Comment: pbar retcorson Performed By: #### L [id number] ####[facility] ([facility]ER)[address] [place] [address] PROTIME-INRon 09-28-2023 INR IN PPP BY COAGULATION ASSAY 1.13 High 0.90-1.10 [facility] Comment on above: Result Comment: ACCC [...] CHEST 1995;108:[id number]. Performed By: #### L [id number] #### [facility] ([facility]AKER) [address] [place] [address] PROTHROMBIN TIME (PT) IN PPP BY COAGULATION ASSAY 14.5 Seconds Normal 12.3-14.8 [facility] Comment on above: Performed By: #### L [id number] #### [facility] ([facility]ER) [address] [place] [address] Orders Onlyon 09-22-2023 Orders Only [id number] Laney Larios 1955 F Date Provider Department Center 09/22/2023 CAESAR BRAGG [facility] Family History Problem Relation Age of Onset Colon cancer Neg Hx Family Status - Relation Status Age at Neg Hx Normal [facility] Prep for Procedureon 024 Prep for Procedure [id number] Laney Larios 1955 F Date Provider Department Center 09/21/2023 MARCELINA VARELA [facility] Family History Problem Relation Age of Onset Colon cancer Neg Hx Family Status - Relation Status Age at Neg Hx Normal [facility] MR MRCP WITH MRI ABD WO CONT on 08-30-2023 MR MRCP WITH MRI ABD WO CONT MR MRCP WITH MRI ABD WO CONT CLINICAL INFORMATION: Pancreatic cyst TECHNIQUE/PROCEDURE: Multiplanar, multisequence MR imaging of the abdomen was performed without IV contrast, including MIP and 3D reformats performed on an independent workstation under concurrent physician supervision, which were then reviewed to further define anatomy and possible pathology. PROTOCOL: MRCP without intravenous contrast COMPARISON: 11/25/2022 FINDINGS: Lung bases clear. Heart size normal. No pericardial pleural effusion. Cirrhotic nodular liver with iron deposition as before. Features of portal hypertension including splenomegaly measuring up to 14 cm. Trace ascites. The pancreas is normal in signal intensity. I cannot identify the previously queried cystic observation in the uncinate process. No biliary dilatation. Pancreaticobiliary junction is poorly resolved. Gallbladder is not identified. The adrenal glands and kidneys are within normal limits. There are simple bilateral renal cysts which require no follow-up imaging. Abdominal aorta nonaneurysmal. IVC right-sided. No enlarged abdominal lymph nodes. A few prominent loops of bowel in the central abdomen most likely related to capacious anastomosis from gastric bypass and/or hepaticojejunostomy No aggressive osseous lesions. IMPRESSION: * No residual conspicuous pancreatic cysts. No additional follow-up imaging of these pancreatic cysts is recommended. * Cirrhosis with features of portal hypertension including trace ascites. Underlying hepatic iron deposition compatible with a history of hemachromatosis. 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 No biliary dilatation or suspicious filling defects.. Finalized by Jones Diane MD on 08/30/2023 9:42 AM Normal [facility] Office Visiton 08-17-2023 Follow-up visit [id number] Laney Larios 1955 F Date Provider Department Center 08/17/2023 SHO MARAVILLA [facility] Family History Problem Relation Age of Onset Colon cancer Neg Hx Family Status - Relation Status Age at Neg Hx Level of Service:65370 [place] OFFICE/OUTPATIENT ESTABLISHED MOD MDM 30 MIN Normal [facility] Office Visiton 04-01-2023 Follow-up visit [id number] Laney Larios 1955 F Date Provider Department Center 04/01/2023 SHO MARAVILLA [facility] Family History Problem Relation Age of Onset Colon cancer Neg Hx Family Status - Relation Status Age at Neg Hx Level of Service:70453 [place] OFFICE/OUTPATIENT ESTABLISHED MOD MDM 30-39 MIN Reason for Visit and Comments: Anemia [944005] autoummune Hepatitis [Other] Cirrhosis [239] Normal [facility] Office Visiton 12-31-2022 Follow-up visit [id number] Laney Larios 1955 F Date Provider Department Center 12/31/2022 SHO [facility]AVILLA [facility] Family History Problem Relation Age of Onset Colon cancer Neg Hx Family Status - Relation Status Age at Neg Hx Level of Service:91844 [place] OFFICE/OUTPATIENT ESTABLISHED HIGH MDM 40-54 MIN Reason for Visit and Comments: Follow-up [860175] - Pt here for follow up to labs and US. Normal [facility] HISTOLOGY - TISSUE EXAMon LAB AP CASE REPORT Normal [facility] Comment on above: Result Comment: Surg ical Pathology Case: [id number] Authorizing Provider: Waylon Cavazos MD Collected: 12/11/2022 1105 Ordering Location: Derik Macdonald Received: 12/11/2022 1226 [facility] Pathologist: Neetu Fields MD Specimen: Small Intestine, Duodenum, duodenal lesion EMR r/o adenoma Performed By: #### L [id number] ####[facility] ([facility])[address] 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 [place] [address] LAB AP GROSS DESCRIPTION [facility] Comment on above: Result Comment: A. S [...] remaining sequential sections Performed By: #### L [id number] ####[facility] ([facility])[address] [facility] [place] [address] LAB AP MICROSCOPIC DESCRIPTION Microscopic examination performed. [facility] Comment on above: Performed By: #### L [id number] ####[facility] ([facility])[address] [place] [address] LAB AP REPORT FINAL DIAGNOSIS NARRATIVE [facility] Comment on above: Result Comment: Duod enum, endoscopic mucosal resection: - Duodenal mucosa with focal gastric foveolar metaplasia. - No malignancy or dysplasia identified Performed By: #### L [id number] ####[facility] ([place])[address] [place] [address] HPon 12-11-2022 HP History Of Present I [...] MAC Attending Physician: Dr. Ade Tan MD Supervisor Cell Operation: Dr. Elise Coelho MD Procedure Details: Informed [...] to assess th (more content not included)... [facility] POCT GLUCOSE METER UNSOLICIT ED RESULTSon 12-11-2022 Glucose [Mass/Vol] 123 mg/dL High 70-105 [facility] Comment on above: Result Comment: [place] Performed By: #### L [id number] #### [facility] (BEAKER) [address] [place] [address] Prep for Procedureon 023 Prep for Procedure [id number] Laney Larios 1955 Provider Department Center 12/02/2022 WAYLON [facility] Family History Problem Relation Age of Onset Colon cancer Neg Hx Family Status - Relation Status Age at Neg Hx [facility] Office Visiton 11-02-2022 Follow-up visit [id number] Laney Larios 1955 Provider Department Center 11/02/2022 SHO MARAVILLA [facility] Family History Problem Relation Age of Onset Colon cancer Neg Hx Family Status - Relation Status Age at Neg Hx Level of Service:79183 [place] OFFICE/OUTPATIENT ESTABLISHED MOD MDM 30-39 MIN Reason for Visit and Comments: Follow-up [[id number]] [facility] 29on 10-14-2022 29 Encounter addended b y: Minnie Browne RN on: 10/15/2022 12:52 PM Actions taken: Contacts section saved [facility] HPon 10-14-2022 HP -------- Attestation signed by Ade Tan MD [...] female with previous history of Cirrhosis (from COUNTS INCLUDE 234 BEDS AT [facility]?) complicated with varices s/p banding, last EGD [...] affected nostril(s) in the morning. 06/18/22 Historical Provider, fluticasone (Flovent) 220 mcg/actuation inhaler [...] nitrofurantoin monohydrat (more content not included)... Normal [facility] Orders Onlyon 10-14-2022 Orders Only [id number] Laney Larios 1955 F Date Provider Department Center 10/14/2022 ELISE MARES [facility] [place] [facility] Family History Problem Relation Age of Onset Colon cancer Neg Hx Family Status - Relation Status Age at Neg Hx Normal [facility] POCT GLUCOSE METER UNSOLICIT ED RESULTSon 10-14-2022 Glucose [Mass/Vol] 130 mg/dL High 70-105 Univer [facility] Comment on above: Result Comment: jhag eman Performed By: #### L [id number] #### [facility] (BEAKER) [address] [place] [address] CULTURE URINEon 09-04-2021 CULTURE URINE Isolate 1 [...] F Trimethoprim/Sulfamethoxazol e <=20 S F Normal [facility] Comment on above: Performed By: #### C BC #### [facility] [address] [place] [address] Dr. Ronald Wong AMMONIAon 09-03-2021 Ammonia (P) [Moles/Vol] 28 umol/L Normal 10-30 [facility] Comment on above: Performed By: #### A MM #### [facility] [address] [place] [address] Dr. Ronald Wong CBC AUTO DIFFon 09-03-2021 BASO # 0.0 103/ul Normal 0.0-0.1 [facility] Comment on above: Performed By: #### C BC #### [facility] [address] [place] [address] Dr. Ronald Wong Basophils/100 WBC (Bld) 0.6 % Normal 0.2-2.0 [facility] Comment on above: Performed By: #### C BC #### [facility] [address] [place] [address] Dr. Ronald Wong EO # 0.1 103/ul Normal 0.0-0.7 [facility] Comment on above: Performed By: #### C BC #### [facility] [address] [place] [address] Dr. Ronald Wong Eosinophils/100 WBC (Bld) 3.3 % Normal 0.9-7.0 [facility] Comment on above: Performed By: #### C BC #### [facility] [address] [place] [address] Dr. Ronald Wong Erythrocyte distribution width (RBC) [Ratio] 15.2 % Critically high 11.0-15.0 [facility] Comment on above: Performed By: #### C BC #### [facility] [address] [place] [address] Dr. Ronald Wong Hematocrit (Bld) [Volume fraction] 25.2 % Critically low 36.0-48.0 [facility] Comment on above: Performed By: #### C BC #### [facility] [address] [address] [address] Ronald Wong Hemoglobin (Bld) [Mass/Vol] 8.4 g/dL Critically low 12.0-16.0 [facility] Comment on above: Performed By: #### C BC #### [facility] [address] [address] [address] Ronald Wong IG # 0.00 10e3/ul Normal 0.00-0.03 [facility] Comment on above: Performed By: #### C BC #### [facility] [address] [address] [address] Ronald Wong IG % 0.0 % Normal 0.0-0.5 [facility] Comment on above: Performed By: #### C BC #### [facility] [address] [place] [address] Dr. Ronald Wong LYMPH # 0.7 103/ul Critically low 1.2-3.8 [facility] Comment on above: Performed By: #### C BC #### [facility] [address] [place] [address] Dr. Ronald Wong Lymphocytes/100 WBC (Bld) 38.7 % Normal 20.5-60.0 [facility] Comment on above: Performed By: #### C BC #### [facility] [address] [place] [address] Dr. Ronald Wong MANUAL DIFF REQ NO Normal [facility] Comment on above: Performed By: #### C BC #### [facility] [address] [place] [address] Dr. Ronald Wong MCH (RBC) [Entitic mass] 38.5 pg Critically high 26.7-34.0 [facility] Comment on above: Performed By: #### C BC #### [facility] [address] [place] [address] Dr. Ronald Wong MCHC (RBC) [Mass/Vol] 33.3 g/dL Normal 29.9-35.2 [facility] Comment on above: Performed By: #### C BC #### [facility] [address] [address] [address] Ronald Wong MCV (RBC) [Entitic vol] 115.6 fL Critically high 81.0-99.0 [facility] Comment on above: Performed By: #### C BC #### [facility] [address] [address] [address] Ronald Wong MONO # 0.2 103/ul Critically low 0.3-0.8 [facility] Comment on above: Performed By: #### C BC #### [facility] [address] [address] [address] Ronald Wong Monocytes/100 WBC (Bld) 11.0 % Normal 1.7-12.0 [facility] Comment on above: Performed By: #### C BC #### [facility] [address] [place] [address] Dr. Ronald Wong NEUT # 0.8 103/ul Critically low 1.4-6.5 [facility] Comment on above: Performed By: #### C BC #### [facility] [address] [place] [address] Dr. Ronald Wong Neutrophils/100 WBC (Bld) 46.4 % Normal 43.0-75.0 [facility] Comment on above: Performed By: #### C BC #### [facility] [address] [place] [address] Dr. Ronald Wong Platelet mean volume (Bld) [Entitic vol] 11.6 fL Normal 9.5-13.5 [facility] Comment on above: Performed By: #### C BC #### [facility] [address] [place] [address] Dr. Ronald Wong PLT 64 103/ul Critically low 150-450 [facility] Comment on above: Performed By: #### C BC #### [facility] [address] [address] [address] Ronald Wong RBC 2.18 106/ul Critically low 4.20-5.40 [facility] Comment on above: Performed By: #### C BC #### [facility] [address] [address] [address] Ronald Wong WBC 1.8 103/ul Critically low 4.0-11.0 [facility] Comment on above: Performed By: #### C BC #### [facility] [address] [place] [address] Dr. Ronald Wong PROF 14(COMP METB)on 022 Albumin [Mass/Vol] 2.9 g/dL Critically low 3.5-5.0 [facility] Comment on above: Performed By: #### C JIMAN #### [facility] [address] [place] [address] Dr. Ronald Wong Albumin/Globulin [Mass ratio] 0.8 {ratio} Normal [facility] Comment on above: Performed By: #### C JIMAN #### [facility] [address] [place] [address] Dr. Ronald Wong ALP [Catalytic activity/Vol] 89 U/L Normal 38-126 [facility] Comment on above: Performed By: #### C JIMAN #### [facility] [address] [place] [address] Dr. Ronald Wong ALT [Catalytic activity/Vol] 13 U/L Normal 9-52 [facility] Comment on above: Performed By: #### C JIL #### [facility] [address] [place] [address] Dr. Ronald Wong Anion gap [Moles/Vol] 9.5 mmol/L Normal [facility] Comment on above: Performed By: #### C JIMAN #### [facility] [address] [place] [address] Dr. Ronald Wong AST [Catalytic activity/Vol] 20 U/L Normal 14-36 [facility] Comment on above: Performed By: #### C JIMAN #### [facility] [address] [place] [address] Dr. Ronald Wong Bilirubin [Mass/Vol] 1.0 mg/dL Normal 0.2-1.3 [facility] Comment on above: Performed By: #### C JIL #### [facility] [address] [place] [address] Dr. Ronald Wong Calcium [Mass/Vol] 9.1 mg/dL Normal 8.4-10.2 [facility] Comment on above: Performed By: #### C JIL #### [facility] [address] [address] [address] Ronald Wong Chloride [Moles/Vol] 113 mmol/L Critically high 98-107 [facility] Comment on above: Performed By: #### C JIL #### [facility] [address] [address] [address] Ronald Wong CO2 [Moles/Vol] 28.1 mmol/L Normal 22.0-30.0 [facility] Comment on above: Performed By: #### C JIL #### [facility] [address] [place] [address] Dr. Ronald Wong Creatinine [Mass/Vol] 1.15 mg/dL Critically high 0.52-1.04 [facility] Comment on above: Performed By: #### C JIL #### [facility] [address] [place] [address] Dr. Ronald Wong EGFR-AF CAMBODIAN 57 mL/min/1.73m2 Critically low >=60 [facility] Comment on above: Performed By: #### C JIL #### [facility] [address] [place] [address] Dr. Ronald Wong EGFR-NON AF CAMBODIAN 47 mL/min/1.73m2 Critically low >=60 [facility] Comment on above: Performed By: #### C JIL #### [facility] [address] [place] [address] Dr. Ronald Wong Globulin (S) [Mass/Vol] 3.6 g/dL Normal [facility] Comment on above: Performed By: #### C JIL #### [facility] [address] [address] [address] Ronald Wong Glucose [Mass/Vol] 92 mg/dL Normal 74-106 [facility] Comment on above: Performed By: #### C JIL #### [facility] [address] [place] [address] Dr. Ronald Wong Potassium [Moles/Vol] 3.6 mmol/L Normal 3.4-5.0 [facility] Comment on above: Performed By: #### C JIL #### [facility] [address] [place] [address] Dr. Ronald Wong Protein [Mass/Vol] 6.5 g/dL Normal 6.1-8.2 [facility] Comment on above: Performed By: #### C JIL #### [facility] [address] [place] [address] Dr. Ronald Wong Sodium [Moles/Vol] 147 mmol/L Critically high 137-145 [facility] Comment on above: Performed By: #### C JIL #### [facility] [address] [place] [address] Dr. Ronald Wong Urea nitrogen [Mass/Vol] 16.0 mg/dL Normal 7.0-17.0 [facility] Comment on above: Performed By: #### C JIL #### [facility] [address] [place] [address] Dr. Ronald Wong Urea nitrogen/Creatinin e [Mass ratio] 13.9 mg/mg Normal [facility] Comment on above: Performed By: #### C JIL #### [facility] [address] [place] [address] Dr. Ronald Wong AMMONIAon 09-02-2021 Ammonia (P) [Moles/Vol] 71 umol/L Critically high 10-30 [facility] Comment on above: Result Comment: test repeated Performed By: #### C BC #### [facility] [address] [place] [address] Dr. Ronald Wong CBC AUTO DIFFon 09-02-2021 BASO # 0.0 103/ul Normal 0.0-0.1 [facility] Comment on above: Performed By: #### C BC #### [facility] [address] [place] [address] Dr. Ronald Wong Basophils/100 WBC (Bld) 0.0 % Critically low 0.2-2.0 [facility] Comment on above: Performed By: #### C BC #### [facility] [address] [place] [address] Dr. Ronald Wong EO # 0.0 103/ul Normal 0.0-0.7 [facility] Comment on above: Performed By: #### C BC #### [facility] [address] [place] [address] Dr. Ronald Wong Eosinophils/100 WBC (Bld) 3.1 % Normal 0.9-7.0 [facility] Comment on above: Performed By: #### C BC #### [facility] [address] [place] [address] Dr. Ronald Wong Erythrocyte distribution width (RBC) [Ratio] 15.1 % Critically high 11.0-15.0 [facility] Comment on above: Performed By: #### C BC #### [facility] [address] [place] [address] Dr. Ronald Wong Hematocrit (Bld) [Volume fraction] 24.5 % Critically low 36.0-48.0 [facility] Comment on above: Performed By: #### C BC #### [facility] [address] [place] [address] Dr. Ronald Wong Hemoglobin (Bld) [Mass/Vol] 8.0 g/dL Critically low 12.0-16.0 [facility] Comment on above: Performed By: #### C BC #### [facility] [address] [place] [address] Dr. Ronald Wong IG # 0.00 10e3/ul Normal 0.00-0.03 [facility] Comment on above: Performed By: #### C BC #### [facility] [address] [place] [address] Dr. Ronald Wong IG % 0.0 % Normal 0.0-0.5 [facility] Comment on above: Performed By: #### C BC #### [facility] [address] [place] [address] Dr. Ronald Wong LYMPH # 0.6 103/ul Critically low 1.2-3.8 [facility] Comment on above: Performed By: #### C BC #### [facility] [address] [address] [address] Ronald Wong Lymphocytes/100 WBC (Bld) 47.3 % Normal 20.5-60.0 [facility] Comment on above: Performed By: #### C BC #### [facility] [address] [place] [address] Dr. Ronald Wong MANUAL DIFF REQ NO Normal [facility] Comment on above: Performed By: #### C BC #### [facility] [address] [place] [address] Dr. Ronald Wong MCH (RBC) [Entitic mass] 38.6 pg Critically high 26.7-34.0 [facility] Comment on above: Performed By: #### C BC #### [facility] [address] [place] [address] Dr. Ronald Wong MCHC (RBC) [Mass/Vol] 32.7 g/dL Normal 29.9-35.2 [facility] Comment on above: Performed By: #### C BC #### [facility] [address] [place] [address] Dr. Ronald Wong MCV (RBC) [Entitic vol] 118.4 fL Critically high 81.0-99.0 [facility] Comment on above: Performed By: #### C BC #### [facility] [address] [place] [address] Dr. Ronald Wong MONO # 0.2 103/ul Critically low 0.3-0.8 [facility] Comment on above: Performed By: #### C BC #### [facility] [address] [place] [address] Dr. Ronald Wong Monocytes/100 WBC (Bld) 12.4 % Critically high 1.7-12.0 [facility] Comment on above: Performed By: #### C BC #### [facility] [address] [place] [address] Dr. Ronald Wong NEUT # 0.5 103/ul Critically low 1.4-6.5 [facility] Comment on above: Performed By: #### C BC #### [facility] [address] [address] [address] Ronald Wong Neutrophils/100 WBC (Bld) 37.2 % Critically low 43.0-75.0 [facility] Comment on above: Performed By: #### C BC #### [facility] [address] [address] [address] Ronald Wong Platelet mean volume (Bld) [Entitic vol] 10.3 fL Normal 9.5-13.5 [facility] Comment on above: Performed By: #### C BC #### [facility] [address] [address] [address] Ronald Wong PLT 38 103/ul Critically low 150-450 [facility] Comment on above: Performed By: #### C BC #### [facility] [address] [place] [address] Dr. Ronald Wong RBC 2.07 106/ul Critically low 4.20-5.40 [facility] Comment on above: Performed By: #### C BC #### [facility] [address] [place] [address] Dr. Ronald Wong WBC 1.5 103/ul Critically low 4.0-11.0 [facility] Comment on above: Performed By: #### C BC #### [facility] [address] [place] [address] Dr. Ronald Wong CULTURE BLOODon 09-02-2021 Microscopic examination of blood, culture Culture Observations: No growth at 5 days. Normal [facility] Comment on above: Performed By: #### C BC #### [facility] [address] [place] [address] Dr. Ronald Wong Microscopic examination of blood, culture Culture Observations: No growth at 5 days. Normal [facility] Comment on above: Performed By: #### C BC #### [facility] [address] [place] [address] Dr. Ronald Wong PROF 14(COMP METB)on 022 Albumin [Mass/Vol] 2.8 g/dL Critically low 3.5-5.0 [facility] Comment on above: Performed By: #### C MP #### [facility] [address] [address] [address] Ronald Wong Albumin/Globulin [Mass ratio] 0.8 {ratio} Normal [facility] Comment on above: Performed By: #### C MP #### [facility] [address] [place] [address] Dr. Ronald Wong ALP [Catalytic activity/Vol] 88 U/L Normal 38-126 [facility] Comment on above: Performed By: #### C MP #### [facility] [address] [address] [address] Ronald Wong ALT [Catalytic activity/Vol] 10 U/L Normal 9-52 [facility] Comment on above: Performed By: #### C MP #### [facility] [address] [place] [address] Dr. Ronald Wong Anion gap [Moles/Vol] 6.7 mmol/L Normal [facility] Comment on above: Performed By: #### C MP #### [facility] [address] [place] [address] Dr. Ronald Wong AST [Catalytic activity/Vol] 20 U/L Normal 14-36 [facility] Comment on above: Performed By: #### C MP #### [facility] [address] [place] [address] Dr. Ronald Wong Bilirubin [Mass/Vol] 1.3 mg/dL Normal 0.2-1.3 [facility] Comment on above: Performed By: #### C MP #### [facility] [address] [place] [address] Dr. Ronald Wong Calcium [Mass/Vol] 8.7 mg/dL Normal 8.4-10.2 [facility] Comment on above: Performed By: #### C MP #### [facility] [address] [place] [address] Dr. Ronald Wong Chloride [Moles/Vol] 111 mmol/L Critically high 98-107 [facility] Comment on above: Performed By: #### C MP #### [facility] [address] [address] [address] Ronald Wong CO2 [Moles/Vol] 30.5 mmol/L Critically high 22.0-30.0 [facility] Comment on above: Performed By: #### C MP #### [facility] [address] [place] [address] Dr. Ronald Wong Creatinine [Mass/Vol] 1.03 mg/dL Normal 0.52-1.04 [facility] Comment on above: Performed By: #### C MP #### [facility] [address] [place] [address] Dr. Ronald Wong EGFR-AF CAMBODIAN >60 Normal >=60 [facility] Comment on above: Performed By: #### C MP #### [facility] [address] [place] [address] Dr. Ronald Wong EGFR-NON AF CAMBODIAN 54 mL/min/1.73m2 Critically low >=60 [facility] Comment on above: Performed By: #### C MP #### [facility] [address] [place] [address] Dr. Ronald Wong Globulin (S) [Mass/Vol] 3.7 g/dL Normal [facility] Comment on above: Performed By: #### C MP #### [facility] [address] [place] [address] Dr. Ronald Wong Glucose [Mass/Vol] 103 mg/dL Normal 74-106 [facility] Comment on above: Performed By: #### C MP #### [facility] [address] [place] [address] Dr. Ronald Wong Potassium [Moles/Vol] 4.2 mmol/L Normal 3.4-5.0 [facility] Comment on above: Performed By: #### C MP #### [facility] [address] [place] [address] Dr. Ronald Wong Protein [Mass/Vol] 6.5 g/dL Normal 6.1-8.2 [facility] Comment on above: Performed By: #### C MP #### [facility] [address] [place] [address] Dr. Ronald Wong Sodium [Moles/Vol] 144 mmol/L Normal 137-145 [facility] Comment on above: Performed By: #### C MP #### [facility] [address] [place] [address] Dr. Ronald Wong Urea nitrogen [Mass/Vol] 17.0 mg/dL Normal 7.0-17.0 [facility] Comment on above: Performed By: #### C MP #### [facility] [address] [place] [address] Dr. Ronald Wong Urea nitrogen/Creatinin e [Mass ratio] 16.5 mg/mg Normal [facility] Comment on above: Performed By: #### C MP #### [facility] [address] [place] [address] Dr. Ronald Wong PROTIMEon 09-02-2021 INR Coag (PPP) [Relative time] 1.06 {INR} Normal [facility] Comment on above: Performed By: #### P TT, PT #### [facility] [address] [place] [address] Dr. Ronald Wong INR GUIDELINES SEE BELOW Normal [facility] Comment on above: Result Comment: HELADIO RED INR: 2.0 - 3.0 CONDITIONS NOT LISTED BELOW 2.5 - 3.5 FOR PROSTHETIC HEART VALVE REPLACEMENT 2.5 - 3.5 RECURRENT THROMBOSIS Performed By: #### P TT, PT #### [facility] [address] [place] [address] Dr. Ronald Wong PT Coag (PPP) [Time] 11.4 s Normal 9.0-11.6 [facility] Comment on above: Performed By: #### P TT, PT #### [facility] [address] [place] [address] Dr. Ronald Wong PTTon 09-02-2021 aPTT Coag (Bld) [Time] 24.3 s Normal 22.3-36.2 [facility] Comment on above: Performed By: #### P TT, PT #### [facility] [address] [place] [address] Dr. Ronald Wong US SINGLE QUAD RT UPPERon US SINGLE [...] No acute findings. Electronically authenticated by: JAE VERA Date: 2021-09-02 12:20 Normal [facility] AMMONIAon 09-01-2021 Ammonia (P) [Moles/Vol] 107 umol/L Critically high 10-30 [facility] Comment on above: Result Comment: test repeated Performed By: #### A MM #### [facility] [address] [place] [address] Dr. Ronald Wong CARDIAC JACKIE ADMITon 022 CK [Catalytic activity/Vol] 35 U/L Normal 30-135 [facility] Comment on above: Performed By: #### C MADM #### [facility] [address] [address] [address] Ronald Wong CK.MB [Mass/Vol] 0.57 ng/mL Normal <=2.37 [facility] Comment on above: Performed By: #### C MADM #### [facility] [address] [place] [address] Dr. Ronald Wong HSTROP 5.7 pg/mL Normal 4.0-35.5 [facility] Comment on above: Result Comment: CUT- OFF POINTS HAVE BEEN ESTABLISHED BASED ON THE FOURTH UNIVERSAL DEFINITIONS OF MYOCARDIAL INFARCTION. THE UPPER REFERENCE LIMIT (URL) OF TROPONIN, DEFINED THE 99TH PERCENTILE OF cTnI DISTRIBUTION IN A REFERENCE POPULATION, HAS BEEN CONFIRMED THE DECISION THRESHOLD FOR IN DIAGNOSIS. Performed By: #### C TARA #### [facility] [address] [place] [address] Dr. Ronald Wong TAMI 35.0 ng/mL Normal <=61.5 [facility] Comment on above: Performed By: #### C TARA #### [facility] [address] [place] [address] Dr. Ronald Wong CBC W MANUAL DIFFon 09-01-19 22 ANISOCYTOSIS 1+ Normal [facility] Comment on above: Performed By: #### C JIL #### [facility] [address] [place] [address] Dr. Ronald Wong ATYPICAL LYMPH # Normal [facility] Comment on above: Performed By: #### C JIL #### [facility] [address] [place] [address] Dr. Ronald Wong ATYPICAL LYMPH % Normal [facility] Comment on above: Performed By: #### C JIL #### [facility] [address] [place] [address] Dr. Ronald Wong BAND # 0.0 103/ul Normal 0.0-0.3 [facility] Comment on above: Performed By: #### C JIL #### [facility] [address] [place] [address] Dr. Ronald Wong BAND % 2 % Normal 0-5 [facility] Comment on above: Performed By: #### C JIL #### [facility] [address] [place] [address] Dr. Ronald Wong BASOM # 0.00 103/ul Normal 0.00-0.10 [facility] Comment on above: Performed By: #### C JIL #### [facility] [address] [place] [address] Dr. Ronald Wong BASOM % 0.0 % Critically low 0.2-2.0 [facility] Comment on above: Performed By: #### C JIL #### [facility] [address] [place] [address] Dr. Ronald Wong BLAST # Normal [facility] Comment on above: Performed By: #### C BCSISSY #### [facility] [address] [address] [address] Ronald Wong BLAST % Normal [facility] Comment on above: Performed By: #### C BCSISSY #### [facility] [address] [address] [address] Ronald Wong CORRECTED WBC Normal 4.0-11.0 [facility] Comment on above: Performed By: #### C BCMAN #### [facility] [address] [address] [address] Ronald Wong EOS # 0.02 103/ul Normal 0.00-0.70 [facility] Comment on above: Performed By: #### C BCSISSY #### [facility] [address] [place] [address] Dr. Ronald Wong EOS% 1.0 % Normal 0.9-7.0 [facility] Comment on above: Performed By: #### C BCSISSY #### [facility] [address] [place] [address] Dr. Ronald Wong HCT 27.7 % Critically low 36.0-48.0 [facility] Comment on above: Performed By: #### C BCSISSY #### [facility] [address] [place] [address] Dr. Ronald Wong HGB 9.2 g/dl Critically low 12.0-16.0 [facility] Comment on above: Performed By: #### C BCSISSY #### [facility] [address] [place] [address] Dr. Ronald Wong LYMPHM # 0.59 103/ul Critically low 1.20-3.80 [facility] Comment on above: Performed By: #### C BCMAN #### [facility] [address] [place] [address] Dr. Ronald Wong LYMPHM% 37.0 % Normal 20.5-60.0 [facility] Comment on above: Performed By: #### C BCSISSY #### [facility] [address] [address] [address] Ronald Wong MACROCYTOSIS 2+ Normal [facility] Comment on above: Performed By: #### C JIL #### [facility] [address] [address] [address] Ronald Wong MCH 38.8 pg Critically high 26.7-34.0 [facility] Comment on above: Performed By: #### C JIL #### [facility] [address] [address] [address] Ronald Wong MCHC 33.2 g/dl Normal 29.9-35.2 [facility] Comment on above: Performed By: #### C JIL #### [facility] [address] [place] [address] Dr. Ronald Wong MCV 116.9 fL Critically high 81.0-99.0 [facility] Comment on above: Performed By: #### C JIL #### [facility] [address] [place] [address] Dr. Ronald Wong METAMYELOCYTE # Normal [facility] Comment on above: Performed By: #### C JIL #### [facility] [address] [place] [address] Dr. Ronald Wong METAMYELOCYTE % Normal [facility] Comment on above: Performed By: #### C JIL #### [facility] [address] [place] [address] Dr. Ronald Wong MONOM# 0.13 103/ul Critically low 0.30-0.80 [facility] Comment on above: Performed By: #### C JIL #### [facility] [address] [place] [address] Dr. Ronald Wong MONOM% 8.0 % Normal 1.7-12.0 [facility] Comment on above: Performed By: #### C JIL #### [facility] [address] [place] [address] Dr. Ronald Wong MPV 10.6 fL Normal 9.5-13.5 [facility] Comment on above: Performed By: #### C JIL #### [facility] [address] [address] [address] Ronald Wong MYELOCYTE # Normal [facility] Comment on above: Performed By: #### C JIL #### [facility] [address] [address] [address] Ronald Wong MYELOCYTE % Normal [facility] Comment on above: Performed By: #### C JIL #### [facility] [address] [address] [address] Ronald Wong NRBC Normal [facility] Comment on above: Performed By: #### C JIL #### [facility] [address] [address] [address] Ronald Wong PLT 43 103/ul Critically low 150-450 [facility] Comment on above: Performed By: #### C JIL #### [facility] [address] [place] [address] Dr. Ronald Wong RBC 2.37 106/ul Critically low 4.20-5.40 [facility] Comment on above: Performed By: #### C JIL #### [facility] [address] [place] [address] Dr. Ronald Wong RDW 15.2 % Critically high 11.0-15.0 [facility] Comment on above: Performed By: #### C JIL #### [facility] [address] [place] [address] Dr. Ronald Wong SEG # 0.83 103/ul Critically low 1.40-6.50 [facility] Comment on above: Performed By: #### C JIL #### [facility] [address] [place] [address] Dr. Ronald Wong SEG % 52.0 % Normal 43.0-75.0 [facility] Comment on above: Performed By: #### C JIL #### [facility] [address] [address] [address] Ronald Wong WBC 1.6 103/ul Critically low 4.0-11.0 [facility] Comment on above: Performed By: #### C JIL #### [facility] [address] [address] STROKE HEAD WOon 09-01-[address] STROKE HEAD WO EXAMINATION: CT STRO [...] TYLER SOLIS Date: 2021-09-01 20:14 Normal [facility] SARS-CoV-2 (COVID-19) RNA KORY+probe Ql (Unsp spec) Not detected Normal NOT DETECTED [facility] Comment on above: Result Comment: When diagnostic [...] for this test is supported by the [place] of Health and Human Service's declaration that [...] longer be used). Performed By: #### C JIL #### [facility] [address] [place] [address] Dr. Ronald Wong ER URINE PROFILEon 2 Bilirubin Ql (U) Negative Normal NEGATIVE [facility] Comment on above: Performed By: #### C BC #### [facility] [address] [place] [address] Dr. Ronald Wong Clarity (U) CLEAR Normal CLEAR [facility] Comment on above: Performed By: #### C BC #### [facility] [address] [place] [address] Dr. Ronald Wong Color (U) YELLOW Normal YELLOW [facility] Comment on above: Performed By: #### C BC #### [facility] [address] [place] [address] Dr. Ronald Wong ERUAHMisty A micrscopic examina tion will be performed if indicated. Normal [facility] Comment on above: Performed By: #### C BC #### [facility] [address] [place] [address] Dr. Ronald Wong Glucose Ql (U) Negative Normal NEGATIVE [facility] Comment on above: Performed By: #### C BC #### [facility] [address] [place] [address] Dr. Ronald Wong Hemoglobin Ql (U) Negative Normal NEGATIVE [facility] Comment on above: Performed By: #### C BC #### [facility] [address] [place] [address] Dr. Ronald Wong Ketones Ql (U) TRACE Abnormal NEGATIVE [facility] Comment on above: Performed By: #### C BC #### [facility] [address] [place] [address] Dr. Ronald Wong LEUKOCYTES Negative Normal NEGATIVE [facility] Comment on above: Performed By: #### C BC #### [facility] [address] [place] [address] Dr. Ronald Wong Nitrite Ql (U) Negative Normal NEGATIVE [facility] Comment on above: Performed By: #### C BC #### [facility] [address] [place] [address] Dr. Ronald Wong pH (U) 6.0 [pH] Normal 5-9 [facility] Comment on above: Performed By: #### C BC #### [facility] [address] [place] [address] Dr. Ronald Wong SPEC GRAVITY 1.025 Normal 1.005-<=1.0 25 [facility] Comment on above: Performed By: #### C BC #### [facility] [address] [place] [address] Dr. Ronald Wong UA PROTEIN Negative Normal NEGATIVE/ TRACE [facility] Comment on above: Performed By: #### C BC #### [facility] [address] [place] [address] Dr. Ronald Wong UR MICRO IND NOT INDICATED Normal [facility] Comment on above: Performed By: #### C BC #### [facility] [address] [place] [address] Dr. Ronald Wong Urobilinogen Qn (U) 1.0 {Yanick'U}/dL Normal 0.2 - 1.0 [facility] Comment on above: Performed By: #### C BC #### [facility] [address] [place] [address] Dr. Ronald Wong LACTATE/LACTIC ACIDon 2021 Lactate [Moles/Vol] 1.1 mmol/L Normal 0.7-2.0 [facility] Comment on above: Performed By: #### C BC #### [facility] [address] [place] [address] Dr. Ronald Wong PROF 14(COMP METB)on 022 Albumin [Mass/Vol] 3.2 g/dL Critically low 3.5-5.0 Th [facility] Comment on above: Performed By: #### C MP #### [facility] [address] [place] [address] Dr. Ronald Wong Albumin/Globulin [Mass ratio] 0.8 {ratio} Normal [facility] Comment on above: Performed By: #### C MP #### [facility] [address] [place] [address] Dr. Ronald Wong ALP [Catalytic activity/Vol] 97 U/L Normal 38-126 [facility] Comment on above: Performed By: #### C MP #### [facility] [address] [address] [address] Ronald Wong ALT [Catalytic activity/Vol] 10 U/L Normal 9-52 [facility] Comment on above: Performed By: #### C MP #### [facility] [address] [address] [address] Ronald Wong Anion gap [Moles/Vol] 10.7 mmol/L Normal [facility] Comment on above: Performed By: #### C MP #### [facility] [address] [address] [address] Ronald Wong AST [Catalytic activity/Vol] 21 U/L Normal 14-36 [facility] Comment on above: Performed By: #### C MP #### [facility] [address] [place] [address] Dr. Ronald Wong Bilirubin [Mass/Vol] 1.5 mg/dL Critically high 0.2-1.3 [facility] Comment on above: Performed By: #### C MP #### [facility] [address] [address] [address] Ronald Wong Calcium [Mass/Vol] 8.9 mg/dL Normal 8.4-10.2 [facility] Comment on above: Performed By: #### C MP #### [facility] [address] [address] [address] Ronald Wong Chloride [Moles/Vol] 108 mmol/L Critically high 98-107 [facility] Comment on above: Performed By: #### C MP #### [facility] [address] [address] [address] Ronald Wong CO2 [Moles/Vol] 26.8 mmol/L Normal 22.0-30.0 [facility] Comment on above: Performed By: #### C MP #### [facility] [address] [address] [address] Ronald Wong Creatinine [Mass/Vol] 1.13 mg/dL Critically high 0.52-1.04 [facility] Comment on above: Performed By: #### C MP #### [facility] [address] [address] [address] Ronald Wong EGFR-AF CAMBODIAN 59 mL/min/1.73m2 Critically low >=60 [facility] Comment on above: Performed By: #### C MP #### [facility] [address] [address] [address] Ronald Wong EGFR-NON AF CAMBODIAN 48 mL/min/1.73m2 Critically low >=60 [facility] Comment on above: Performed By: #### C MP #### [facility] [address] [address] [address] Ronald Wong Globulin (S) [Mass/Vol] 4.1 g/dL Normal [facility] Comment on above: Performed By: #### C MP #### [facility] [address] [address] [address] Ronald Wong Glucose [Mass/Vol] 131 mg/dL Critically high 74-106 [facility] Comment on above: Performed By: #### C MP #### [facility] [address] [address] [address] Ronald Wong Potassium [Moles/Vol] 4.5 mmol/L Normal 3.4-5.0 [facility] Comment on above: Performed By: #### C MP #### [facility] [address] [address] [address] Ronald Wong Protein [Mass/Vol] 7.3 g/dL Normal 6.1-8.2 [facility] Comment on above: Performed By: #### C MP #### [facility] [address] [address] [address] Ronald Wong Sodium [Moles/Vol] 141 mmol/L Normal 137-145 [facility] Comment on above: Performed By: #### C MP #### [facility] [address] [address] [address] Ronald Wong Urea nitrogen [Mass/Vol] 18.0 mg/dL Critically high 7.0-17.0 [facility] Comment on above: Performed By: #### C MP #### [facility] [address] [address] [address] Ronald Wong Urea nitrogen/Creatinin e [Mass ratio] 15.9 mg/mg Normal [facility] Comment on above: Performed By: #### C MP #### [facility] [address] [place] [address] Dr. Ronald Wong PROTIMEon 09-01-2021 INR Coag (PPP) [Relative time] 1.06 {INR} Normal [facility] Comment on above: Performed By: #### C BC #### [facility] [address] [place] [address] Dr. Ronald Wong INR GUIDELINES SEE BELOW Normal [facility] Comment on above: Result Comment: HELADIO RED INR: 2.0 - 3.0 CONDITIONS NOT LISTED BELOW 2.5 - 3.5 FOR PROSTHETIC HEART VALVE REPLACEMENT 2.5 - 3.5 RECURRENT THROMBOSIS Performed By: #### C BC #### [facility] [address] [place] [address] Dr. Ronald Wong PT Coag (PPP) [Time] 11.4 s Normal 9.0-11.6 [facility] Comment on above: Performed By: #### C BC #### [facility] [address] [place] [address] Dr. Ronald Wong PTTon 09-01-2021 aPTT Coag (Bld) [Time] 24.5 s Normal 22.3-36.2 [facility] Comment on above: Performed By: #### C BC #### [facility] [address] [place] [address] Dr. Ronald Wong Endoscopy Reporton Endoscopy Report MR#: [id number] [facility] Pt. Name: Laney Larios Surgery Date: 06/26/2021 Room #: 0 Date of : 1955 [...] P/Juliano Lucas M.D. Date Trans: 06/27/2021 04:11 A/royal [id number] Normal [facility] POC GLUCOSE LABon 06-26-2021 Glucose [Mass/Vol] 106 mg/dL High 70-100 [facility] Comment on above: Performed By: #### [id number] #### [address] Endoscopy Reporton 1 Endoscopy Report MR#: [id number] [facility] Pt. Name: Laney Larios Surgery Date: 03/24/2021 Room #: 0 Date of : 1955 PROCEDURE NOTE ATTENDING: Juliano Lucas M.D. PROCEDURE: Upper endoscopy. ASSISTING PHYSICIAN: Marcy F. Rey, DO. INDICATIONS: Variceal screening. ANESTHESIA: MAC. PROCEDURE [...] it was withdrawn. Date Dict: 03/24/2021/03:32 P/Marcy Le DO Date Trans: 03/25/2021 06:50 A/royal [id number] Normal [facility] Alcohol, Medicalon 8 Ethanol mg/dL Invalid Interpretation Code <3.00 mg/dL [facility] Comment on above: Alcohol cutoff: <3.0 0 mg/dL = None Detected Ammoniaon 01-08-2018 Ammonia 135 micromol/L High 12 - 47 [facility] Blood Gas, Venouson 01-09-20 18 Base Excess, Homar 0.0 1 Invalid Interpretation Code -2.0 - 2.0 [facility] Bicarbonate (HCO3) 24.3 mmol/L Invalid Interpretation Code 24 - 28 mmol/L [facility] CO2 40.2 mm Hg Low 41.0 - 51.0 [facility] Hematocrit (HCT) 29.5 % Low 36 - 46 % [facility] Hemoglobin mass conc (Bld) 9.5 g/dL Low 12 - 16 g/dL [facility] Interpretation and review of laboratory results Abnormal Invalid Interpretation Code [facility] O2 saturation 47.2 % Invalid Interpretation Code [facility] pH, Venous 7.40 1 Invalid Interpretation Code 7.32 - 7.42 [facility] pO2, Homar 28 mm Hg Invalid Interpretation Code 25 - 40 [facility] CBC Auto Differentialon 12-12 Basophils Auto #/vol (Bld) 0.03 K/mcL Invalid Interpretation Code 0.00 - 0.30 [facility] Basophils/100 WBC Auto (Bld) 0.6 % Invalid Interpretation Code [facility] Eosinophils 0.13 K/mcL Invalid Interpretation Code 0.00 - 0.50 [facility] Eosinophils/100 leukocytes 2.8 % Invalid Interpretation Code [facility] Erythrocyte distribution width Auto Entitic volume (RBC) 14.9 % High 11.6 - 14.8 % [facility] Erythrocytes (RBC) 2.72 M/mcL Low 4.00 - 5.20 [facility] Hematocrit (HCT) 27.9 % Low 36 - 46 % [facility] Hemoglobin mass conc (Bld) 9.4 g/dL Low 12 - 16 g/dL [facility] Immature granulocytes #/vol (Bld) 0.01 K/mcL Invalid Interpretation Code 0.00 - 0.30 [facility] Immature granulocytes/100 WBC (Bld) 0.20 % Invalid Interpretation Code [facility] Comment on above: The IG parameter is the percentage of metamyelocytes, myelocytes, and promyelocytes. Lymphocytes 1.72 K/mcL Invalid Interpretation Code 0.90 - 4.00 [facility] Lymphocytes/100 leukocytes 37.1 % Invalid Interpretation Code [facility] MCH 34.6 pg High 26 - 34 pg [facility] MCHC mass conc (RBC) 33.7 g/dL Invalid Interpretation Code 31 - 37 g/dL [facility] MCV 102.6 fL High 80 - 100 fL [facility] Monocytes 0.35 K/mcL Invalid Interpretation Code 0.30 - 0.90 [facility] Monocytes/100 leukocytes 7.6 % Invalid Interpretation Code [facility] Neutrophils 2.39 K/mcL Invalid Interpretation Code 1.70 - 7.00 [facility] Neutrophils/100 WBC Auto (Bld) 51.7 % Invalid Interpretation Code [facility] Nucleated erythrocytes 0.00 K/mcL Invalid Interpretation Code 0.00 - 0.00 [facility] Nucleated erythrocytes/100 erythrocytes 0.0 % Invalid Interpretation Code [facility] Platelet mean volume (PMV) 9.5 fL Invalid Interpretation Code 9 - 15.5 fL [facility] Platelets 142 K/mcL Low 150 - 400 [facility] WBC (Leukocytes) 4.63 K/mcL Invalid Interpretation Code 4.50 - 11.00 [facility] CBC w/ Diffon 01-08-2018 Creatinine The following orders were created for panel order CBC w/ Diff. Procedure Abnormality Status --------- ------ CBC Auto Differential[[id number]] Abnormal Final result Please view results for these tests on the individual orders. Invalid Interpretation Code [facility] CT ABDOMEN PELVIS WITH IV [...] HypokalemiaCOMPARISON:CT of the abdomen and pelvis from [facility] 05/02/2015.TECHNIQUE:CT examination of the abdomen and pelvis [...] of the wall of the ascending and gdtgrugg-os-yqx transverse colon which may be related to [...] morphology of the liver with splenomegaly and taqie-bg-mrxhivwl volume of predominantly upper abdominal ascites and stigmata of portal hypertension, similar in appearance to the prior examination. Pneumobilia and prior cholecystectomy, as before.2. There is thickening of the wall of the ascending and spzmycuv-it-zsp transverse colon which may be related to [...] with grade 1 anterolisthesis of L5 on S1.[facility]/sWorkstation ID: [id number] by: SHADE MANCERA on Sat Jan 08, 2018 1:03:05 AM EDTTranscribed by: LON WILD on Sat Jan 08, 2018 1:14:48 AM EDTFinalized by: SHADE MANCERA on Sat Jan 08, 2018 3:58:36 AM EDT Normal [facility] Comment on above: Order Comment: Reaso [...] CT of the abdomen and pelvis from [facility] 05/02/2015. TECHNIQUE: CT examination of the abdomen [...] of the wall of the ascending and fxpccvow-yc-wpv transverse colon which may be related to [...] Bilateral L5 pars defects. Invalid Interpretation Code [employer] [place] [facility] CT Abdomen Pelvis With IV Contrast Only 1. 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 Pneumobilia and prior cholecystectomy, as before. 2. There is thickening of the wall of the ascending and ahtkintn-gk-xis transverse colon which may be related to [...] grade 1 anterolisthesis of L5 on S1. [employer] Workstation ID: [id number] Invalid Interpretation Code [place] [facility] CT Abdomen Pelvis With IV Contrast Only Interface, Rad In [employer] - 01/08/2018 4:01 AM EDT EXAMINATION: CT [...] CT of the abdomen and pelvis from [facility] 05/02/2015. TECHNIQUE: CT examination of the abdomen [...] of the wall of the ascending and bevkuizo-df-uxw transverse colon which may be related to [...] morphology of the liver with splenomegaly and qcdzo-az-jfiiyozk volume of predominantly upper abdominal ascites and stigmata of portal hypertension, similar in appearance to the prior examination. Pneumobilia and prior cholecystectomy, as before. 2. There is thickening of the wall of the ascending and loruxfnf-fa-qyf transverse colon which may be related to [...] grade 1 anterolisthesis of L5 on S1. [employer] Workstation ID: [id number] Invalid Interpretation Code [place] [facility] CT HEAD OR BRAIN WITHOUT CON [...] on the left, not significantly changed.Workstation ID: [id number] by: XANDER SUAZO on WedJan 07, 2018 11:55:50 PM EDTTranscribed by: XANDER SUAZO on WedJan 07, 2018 11:55:50 PM EDTFinalized by: XANDER SUAZO on WedJan 07, 2018 11:55:50 PM EDT Normal [facility] Comment on above: Order Comment: Reaso [...] the left, not significantly changed. Workstation ID: [id number] Invalid Interpretation Code [facility] CT Head Or Brain Without Contrast [...] right external auditory canal. Invalid Interpretation Code [place] [facility] CT Head Or Brain Without Contrast Interface, Rad In [facility] - 01/07/2018 11:58 PM EDT EXAMINATION: CT [...] the left, not significantly changed. Workstation ID: [id number] Invalid Interpretation Code [employer] [facility] Chem 7on 01-08-2018 Anion gap 11 mmol/L Invalid Interpretation Code 10 - 20 mmol/L [facility] Bicarbonate (HCO3) 23 mmol/L Invalid Interpretation Code 21 - 32 mmol/L [facility] BUN/Creatinine Ratio 22.1 mg/mg High 10.0 - 20.0 [facility] Chloride 114 mmol/L High 98 - 108 mmol/L [facility] Creatinine 0.86 mg/dL Invalid Interpretation Code 0.6 - 1.2 mg/dL [facility] eGFR (non-black) 73 mL/min/{1.73_m2} Invalid Interpretation Code >=60 [facility] eGFR (non-black) The eGFR should be u sed for monitoring renal function only and not for medication dosing. Invalid Interpretation Code [facility] Glucose mass conc 104 mg/dL High 65 - 99 mg/dL [facility] Interpretation and review of laboratory results Abnormal Invalid Interpretation Code [facility] Potassium molar conc 3.0 mmol/L Low 3.5 - 5.1 mmol/L [facility] Sodium 145 mmol/L Invalid Interpretation Code 135 - 145 mmol/L [facility] Urea nitrogen 19 mg/dL Invalid Interpretation [...] Tube Hold for add-ons. Invalid Interpretation Code [facility] Comment on above: Auto resulted. POC Glucoseon 01-08-2018 Glucose mass conc 105 mg/dL High 65 - 99 mg/dL [facility] Interpretation and review of laboratory results Abnormal Invalid Interpretation Code [facility] PT/INRon 01-08-2018 INR Coag RelTime (Bld) During the induction phase of oral anticoagulation, the INR may not reflect the anticoagulation status of the patient. Therapeutic ranges for INR's are: Most clinical situations: INR 2.0-3.0 Mechanical Prosthetic Valve: INR 2.5-3.5 Critical: INR >5.0 Invalid Interpretation Code [facility] INR Coag RelTime (PPP) 1.6 {INR} High 0.8 - 1.1 [facility] Prothrombin time (PT) Coag time (PPP) 19.1 s High 11.8 - 14.3 [facility] [place] Drawon 01-08-2018 Creatinine The following orders were created for panel order [place] Draw. Procedure Abnormality Status --------- ------ Lavender Top[[id number]] Final result Mint Green Top[[id number]] Final result Gold Top[[id number]] Final result Light Blue Top[[id number]] Final result Please view results for these tests on the individual orders. Invalid Interpretation Code [facility] Troponinon 01-08-2018 Troponin I.cardiac mass conc ng/mL Invalid Interpretation Code <=45 ng/L [facility] Comment on above: The 2014 AHA/ACC Gu ideline for the Management of Patients With Vxe-QU-Ieprnwkeh Acute Coronary Syndromes defines myocardial infarction (IN) as follows: 1. For troponin-I value above the 45 ng/L (99th percentile) cut-off, a rise or fall greater than or equal to 20% from the initial value is indicative of IN, in conjunction with the appropriate clinical symptoms. 2. For troponin-I value less than 45ng/L an absolute value change greater than or equal to 8ng/L is indicative of myocardial necrosis. Urinalysison 01-08-2018 Bilirubin Ql (U) Positive Abnormal Negative [facility] Comment on above: False positive urine bilirubins can occur in the setting of a large amount of hemoglobin and secondary to medications including anti-inflammatory agents, rifampin, and pyridium. Blood, Urine Large Abnormal Negative [facility] Interpretation and review of laboratory results Abnormal Invalid Interpretation Code [facility] Mucus, Urine Many Abnormal None Seen, [...] LAB Urine, protein 30 Abnormal Negative mg/dL [facility] Comment on above: False positive resul ts may occur in urines with large amounts of hemoglobin, pH greater than 8.0, contrast medium, or disinfectants including ammonium compounds. Urine, specific gravity 1.020 1 Invalid Interpretation Code 1.005 - 1.025 [facility] Urine, urobilinogen >=4.0 Abnormal <2.0 mg/dL [facility] WBCs, Urine 3 /hpf Invalid Interpretation Code 0 - 5 [facility] Urinalysis Microscopic examinat ion is performed on all urinalysis samples and only positive findings are reported. The test for blood on the chemical analytic portion of urinalysis may also be positive due to hemoglobinuria and myoglobinuria and if red blood cells are present they are quantified by microscopic examination. Invalid Interpretation Code [facility] Urine Drug Screenon 01-09-20 18 Amphetamine Screen, Urine None Detected Invalid Interpretation Code None Detected [facility] Comment on above: Urine Amphetamine Cu toff: < 1000 ng/mL = None Detected Cocaine, Screen Urine None Detected Invalid Interpretation Code None Detected [facility] Comment on above: Urine Cocaine Cutoff : < 300 ng/mL = None Detected Methadone Screen, Urine None Detected Invalid Interpretation Code None Detected [facility] Comment on above: Urine Methadone Cuto ff: < 300 ng/mL = None Detected Opiate Screen, Urine None Detected Invalid Interpretation Code None Detected [facility] Comment on above: Urine Opiates Cutoff : < 300 ng/mL = None Detected Oxycodone Screen, Urine None Detected Invalid Interpretation Code None Detected [facility] Comment on above: Urine Oxycodone Cuto ff: < 100 ng/mL = None Detected Urine, barbiturates presence None Detected Invalid Interpretation Code None Detected [facility] Comment on above: Urine Barbiturates C utoff: < 200 ng/mL = None Detected Urine, benzodiazepines presence None Detected Invalid Interpretation Code None Detected [facility] Comment on above: Urine Benzodiazepine Cutoff: < 200 ng/mL = None Detected Urine, cannabinoids presence None Detected Invalid Interpretation Code None Detected [facility] Comment on above: Urine Cannabinoids C utoff: < 50 ng/mL = None Detected Urine Drug Screen Screen results shoul d be used for treatment purposes only. Invalid Interpretation Code [facility] Interpretation and review of laboratory results Normal Invalid Interpretation Code [facility] VBG (Obtain Venous Blood Gas es)on 01-08-2018 VBG (Obtain Venous Blood Gases) Invalid Interpretation Code [facility] XR CHEST PA/APon 01-08-2018 XR CHEST PA/AP EXAMINATION:XR CHEST PA/APHISTORY:Weakness and chest pain.TECHNIQUE:XR CHEST PA/APCOMPARISON:04/10/2016.F INDINGS:Lungs are hypoinflated. No large pneumothorax or pleural effusion is visualized. No focal airspace consolidation is visualized. Right-sided discoid atelectasis noted. Unchanged cardiomediastinal silhouette and osseous structures noted. Probable cholecystectomy clips noted.IMPRESSION:No acute pulmonary abnormality is visualized./AuthorityLabsvWorkstation ID: [id number] by: NOEMY PÉREZ on WedJan 07, 2018 11:13:30 PM EDTTranscribed by: VIMAL TABARES on WedJan 07, 2018 11:17:27 PM EDTFinalized by: NOEMY PÉREZ on WedJan 08, 2018 3:41:50 AM EDT Normal [facility] Comment on above: Order Comment: Reaso [...] IMPRESSION: No acute pulmonary abnormality is visualized. [email or web address] Workstation ID: [id number] Invalid Interpretation Code [facility] XR Chest 1 View No acute pulmonary abnormality is visualized. /[employer] Workstation ID: [id number] Invalid Interpretation Code [facility] XR Chest 1 View EXAMINATION: XR CHES T PA/AP HISTORY: Weakness and chest pain. TECHNIQUE: XR CHEST PA/AP COMPARISON: 04/10/2016. FINDINGS: Lungs are hypoinflated. No large pneumothorax or pleural effusion is visualized. No focal airspace consolidation is visualized. Right-sided discoid atelectasis noted. Unchanged cardiomediastinal silhouette and osseous structures noted. Probable cholecystectomy clips noted. Invalid Interpretation Code [facility] XR WRIST LEFT 3+ VIEWS (BARB DARD)on 08-25-2017 XR WRIST LEFT 3+ VIEWS (STANDARD) EXAMINATION:XR WRIST LEFT 3+ VIEWS (STANDARD)HISTORY:ORDERING SYSTEM PROVIDED HISTORY: POST OP, TECHNOLOGIST PROVIDED HISTORY: Reason for exam: fxInjury/TraumaCancer History: ?Surgery, RadiationHistory: cholecystectomyEncounter Type: Subsequent/Follow-upMechanis m of injury: contustionORDERING SYSTEM PROVIDED DIAGNOSIS CODES:S52.502A Closed fracture distal radius and ulna, left, initial iyttrmnjgH45.602A Closed fracture distal radius and ulna, left, [...] alignment is anatomic and no complication is appreciated.MARCIANO/Rigoberto on ID: [id number] by: KALA BREWSTER on WedAug 25, 2017 3:09:11 PM ESTTranscribed by: DAPHNEY RODRIGEZ on WedAug 25, 2017 3:57:29 PM ESTFinalized by: KALA BREWSTER on WedAug 25, 2017 4:03:47 PM EST Normal [facility] Comment on above: Order Comment: Reaso n for exam?:fxInjury/Trauma or Illness?:Injury/TraumaHow long have you had these symptoms (acute/chronic)?:ChronicHistory of cancer?:?Surgeries, chemotherapy, or radiation?:cholecystectomyType of Exam?:Subsequent/Follow-upMechanism of injury?:contustion XR FLUOROSCOPY LESS THAN ONE HOURon 08-10-2017 XR FLUOROSCOPY LESS THAN ONE HOUR This is an auto finalized result. Please refer to patient chart for further information. information. information. Normal [facility] Comment on above: Order Comment: Reaso [...] inner ear cavity. Partially included in the wtxgr-oq-cwwz are left facial fractures including a depressed inferior left orbital wall fracture with hemorrhage in the left maxillary sinus.IMPRESSION:1. No signs of an acute intracranial process.2. Generalized atrophy of the brain with xgrs-pz-xkmtmmlv probable chronic small vessel ischemic changes.3. Opacification of the right mastoid air cells and inner ear cavity, which may be related to age-indeterminate otomastoiditis. Clinical correlation is recommended.4. Partially imaged are left facial fractures including a depressed left inferior orbital wall fracture with hemorrhage in the left maxillary sinus. Please see the CT facial bone report for further details.JAR/bdWorkstation ID: [id number] by: SY LEAHY on WedAug 03, 2017 4:06:30 PM ESTTranscribed by: BRENDAN VALDES on WedAug 03, 2017 4:11:43 PM ESTFinalized by: SY LEAHY on WedAug 03, 2017 5:47:14 PM EST Normal [facility] Comment on above: Order Comment: Reaso [...] intraorbital hematoma. The globe is intact.JAR/bdWorkstation ID: [id number] by: SY LEAHY on WedAug 03, 2017 4:22:29 PM ESTTranscribed by: BRENDAN VALDES on WedAug 03, 2017 4:26:18 PM ESTFinalized by: SY LEAHY on WedAug 03, 2017 5:47:02 PM EST Normal [facility] Comment on above: Order Comment: Reaso [...] 3:03:15 PM EST Normal [facility] Comment on above: Order Comment: Reaso [...] Encntr screen for malignant neoplasm of genitourinary bfzpejC37.8 Acid phosphatase ukcoevqiR27.19 Personal history of digestive diseaseCOMPARISON:None.TECHN IQUE:Complete ultrasound [...] or nephrolithiasis. No solid renal mass is identified.ST/mjrWorkstation ID: [id number] by: CARLOS GONZALEZ on WedJul 29, 2017 9:13:35 AM ESTTranscribed by: GWENDOLYN AMES on WedJul 29, 2017 9:29:16 AM ESTFinalized by: CARLOS GONZALEZ on WedJul 29, 2017 8:29:54 PM EST Normal [facility] Comment on above: Order Comment: Reaso n for exam?:screen for malignant neoplasm of genitourinary organs, elevated acid phospataseInjury/Trauma or Illness?:Illness/OtherHow long have you had these symptoms (acute/chronic)?:UnknownHistory of cancer?:?Surgeries, chemotherapy, or radiation?:cholecystectomyType of Exam?:InitialAdditional signs and symptoms?:none CNOVSPon 02-04-2017 CNOVSP Visit (SP) Office ([facility]) ----LANEY LARIOS ([id number]) 1955 FDate Time Provider Department02/04/17 2:45 PM CAESAR VALENCIA During your visit today, we recorded the following information about you: Temperature Pulse Respiration Blood pressure 97.7 degrees 80/minute 16/minute 102/63 Weight Height 46.4 kg 1.6 mMINDY REBECA SEGUNDO PA-C 02/04/2017 3:05 PM SignedCCAnemiaHPIJgene Ajith Larios is a 61 year old [...] ANDamp;MINERALS/FERROUS FUM (MULTI VITAMIN ORAL) Take by mouth.Ragan-3 Fatty Acids-Vitamin E 1,000 mg cap Take [...] kg (102 lb 3.2 oz) BMI 18.11 kg/d9Aivkofy Appearance: alert and oriented, appearing in no [...] according to her.RUKHSANA RUSH-CReferring Provider: CAESAR VALENCIA [[id number]]Allergies As of Date: 02/04/2017(No Known Allergies)Date Reviewed: 02/04/2017Reviewed by: Cris Varma - Fully AssessedReason for Visit: Anemia [6] Cmt: 1 year follow upPrimary Visit Diagnosis:Anemia, unspecified type [D64.9] Other Visit Diagnosis:Wound infection [T14.8, L08.9]Order(s):IRON + TIBC [SQIRON] Order #: [id number] FUTURE FERRITIN BLD [SQFERR] Order #: [id number] FUTUREDisposition: Return in about 1 year (around [...] FOR*Encounter Status:Closed by LIGIA SEGUNDO on 02/04/17 Normal [facility] PROGRESSon 02-04-2017 PROGRESS HNO ID: [id number] thor: Ligia Nettleservice: (none)Author Type: Physician AssistantType: Progress NotesFiled: 02/04/2017 3:05 PMNote Text:Jimgene Larios is a 61 year old female [...] ANDMINERALS/FERROUS FUM (MULTI VITAMIN ORAL) Take by mouth.Ragan-3 Fatty Acids-Vitamin E 1,000 mg cap Take [...] kg (102 lb 3.2 oz) BMI 18.11 kg/d7Jpepqio Appearance: alert and oriented, appearing in no [...] healing according to her.LIGIA SEGUNDO PA-C Normal [facility] Remote CBCDIF (for [facility] use o nly)on 02-04-2017 Abs Baso 0.01 k/uL Normal 0.00-0.10 [facility] Abs Ashley 0.30 k/uL Normal 0.00-0.86 [facility] Abs Neut 2.10 k/uL Normal 1.45-7.50 [facility] Basophils/100 WBC Auto (Bld) 0.3 % Normal [facility] Eosinophils 0.21 10*3/uL Normal 0.00-0.45 [facility] Eosinophils/100 leukocytes 5.4 % Normal [facility] Erythrocyte distribution width Auto Ratio (RBC) 14.3 % Normal 11.5-15.0 [facility] Erythrocytes (RBC) 2.59 10*6/uL Low 3.90-5.20 [facility] Hematocrit (HCT) 27.8 % Low 36.0-46.0 [facility] Hemoglobin mass conc (Bld) 8.7 g/dL Low 11.5-15.5 [facility] Lymphocytes 1.25 10*3/uL Normal 1.00-4.00 [facility] Lymphocytes/100 leukocytes 32.3 % Normal [facility] MCH 33.6 pG Normal 26.0-34.0 [facility] MCHC mass conc (RBC) 31.3 g/dL Normal 30.5-36.0 [facility] MCV 107.3 fL High 80.0-100.0 [facility] Monocytes/100 leukocytes 7.8 % Normal [facility] Neutrophils/100 WBC Auto (Bld) 54.2 % Normal [facility] Platelet mean volume (PMV) 8.9 fL Low 9.0-12.7 [facility] Platelets 140 10*3/uL Low 150-400 [facility] WBC (Leukocytes) 3.87 10*3/uL Normal 3.70-11.00 [facility] Vital Signs Date Time Vital Sign Value Performing Clinician Faci lity 01-08-2018 03:45-0400 BP Diastolic 64 mm[Hg] Del [facility] 01-08-2018 03:45-0400 BP Systolic 87 mm[Hg] Del Christianson [facility] 01-08-2018 03:45-0400 Pulse (Heart Rate) 71 /min [facility] 01-08-2018 03:45-0400 Pulse Oximetry 98 % [facility] 01-08-2018 03:45-0400 Respiratory Rate 18 /min [facility] 01-07-2018 22:19-0400 BMI (Body Mass Index) 17.01 kg/m2 [facility] 01-07-2018 22:19-0400 Body Temperature 97.59 [degF] Del [facility] 01-07-2018 22:19-[address] [facility] 01-07-2018 22:19-[address] [facility] Encounters Encounter Date Encounter Type Care Provider Facility Start: 10-05-2023 End: 10-11-2023 ambulatory ALBERTO Nubia [facility] Start: 10-04-2023 End: 10-05-2023 ambulatory [facility] Start: 09-29-2023 End: 09-30-2023 ambulatory NAMAN CARBAJAL [facility] Start: 09-28-2023 End: 09-29-2023 ambulatory ADE TAN [facility] Start: 08-31-2023 End: 08-31-2023 ambulatory ALBERTO Delacruz [facility] Start: 08-30-2023 End: 08-31-2023 ambulatory [facility] Start: 08-27-2023 End: 08-28-2023 ambulatory SHO S LAY [facility] Start: 08-26-2023 End: 08-26-2023 ambulatory [facility] Start: 08-17-2023 End: 08-17-2023 ambulatory SHO [facility] Start: 07-29-2023 End: 09-10-2023 ambulatory [facility] Start: 04-01-2023 End: 04-01-2023 ambulatory SHO MILLER [facility] Start: 12-31-2022 End: 12-31-2022 ambulatory SHO MILLER [facility] Start: 12-11-2022 End: 12-12-2022 ambulatory WAYLON CAVAZOS [facility] Start: 11-02-2022 End: 11-02-2022 ambulatory SHO MILLER [facility] Start: 10-14-2022 End: 10-15-2022 ambulatory ADE TAN [facility] Start: 09-02-2021 End: 09-03-2021 Evaluation and management of inpatient SHAIKH KAISER Facility: Start: 06-26-2021 End: 06-27-2021 ambulatory REFERRED SELF Facility:[facility] Start: 03-24-2021 End: 03-25-2021 ambulatory REFERRED SELF Facility:[facility] Start: 09-11-2020 End: 09-11-2020 Orders Only Leticia Wright Work Phone: [facility] Start: 01-08-2018 End: 01-08-2018 Emergency department patient visit [facility] Start: 01-07-2018 End: 01-08-2018 Emergency department patient visit Del Castillopee Christianson Work Phone: [facility] Emergency Department Start: 08-25-2017 End: 08-26-2017 [facility]: 08-10-2017 End: 08-10-2017 Patient encounter MICHAEL ADAMS [facility] Start: 08-04-2017 End: 08-04-2017 Ambulatory MICHAEL ADAMS [facility] Start: 08-03-2017 End: 08-03-2017 Emergency department patient visit YOANA BARR [facility] Start: 07-29-2017 End: 07-30-2017 Patient encounter [facility] Start: 07-27-2017 End: 07-27-2017 Patient encounter [facility] Start: 07-02-2017 End: 07-02-2017 Patient encounter [facility] Start: 06-24-2017 End: 06-24-2017 Patient encounter GHASSAN PASTRANA [facility] Start: 02-04-2017 End: 02-05-2017 Ambulatory CAESAR VALENCIA [facility] Procedures Date Procedure Procedure Detail Performing Clinician Start: 08-26-2023 Follow-up visit Follow-up MARVIN MARCOS Start: 11-02-2022 Follow-up visit Follow-up SHO MILLER Start: 03-24-2021 ANES UPR GI NDSC PX NOS REFERRED SELF Start: 03-24-2021 EGD DIAGNOSTIC BRUSH WASH JULIANO LUCAS Plan of Treatment Date Care Activity Detail Author Start: 08-03-2027 Tetanus vaccination [facility] Start: 03-12-2020 Influenza vaccination given Se quential Influenza Vaccine (#1) [facility] Start: 03-12-2018 Influenza vaccination SEQUENTI AL INFLUENZA VACCINE (Season Ended) [facility] Start: 2016 Zoster vaccine hzv l adriana for subcutaneous use ZOSTER VACCINE [facility] Start: 2006 Administration of he rpes zoster vaccine Zoster Vaccines (1 of 2) [facility] Start: 2006 Screening for malign ant neoplasm of colon [facility] Start: 1972 COVID-19 Vaccine (1 of 2) COVID-19 V accine (1 of 2) [facility] Start: 1971 HIV screening HIV Screening [facility] Start: 1968 Adolescent depressio n screening assessment Depression Screening (PHQ9) [facility] Start: 1959 History and physical examination, annual for health maintenance Wellness Visit [facility] Start: 1955 Screening colonoscopy COLONOSCOPY O [facility] Start: 1955 Screening for malign ant neoplasm of cervix PAP SMEAR [facility] Start: 1956 Screening mammography Mammogram O [facility] End: 01-07-2018 Bacteria aerobode culture Urine Aerobic Culture Routine Once for 1 Occurrences starting 01/07/2018 until 01/07/2018 [facility] Bacteria aerobode culture Urine Aerobic Culture Routine 01/07/2018 11:13 PM EDT [facility] End: 01-07-2018 Bacteria culture Blood Culture Aerobic/Anaerobic Routine Once for 1 Occurrences starting 01/07/2018 until 01/07/2018 [facility] Bacteria culture [facility] Immunizations Immunization Date Immunization Notes Care Provider Eva waddell 08-03-2017 tetanus toxoid, redu jason diphtheria toxoid, and acellular pertussis vaccine, adsorbed; Translations: [TDAP] Del Christianson [facility] Payers Date Payer Category Payer Medicaid [id number] 2016 Medicaid [employer] MED[employer] [id number] 2016-Present [id number] 1959 Medicaid [id number] 1956 Unknown [id number] 1956 Unknown [id number] 1956 Unknown [id number] 1956 Unknown [id number] 1956 Unknown [id number] 1956 Unknown [id number] 1956 Unknown [id number] 1956 Unknown [id number] [id number] 1956 Unknown [id number] [id number] 1956 Unknown [id number] 1956 Unknown [id number] Social History Date Type Detail Facility Start: 01-07-2018 End: 05-10-2018 Tobacco smoking status [facility] Former smoker [facility] End: 08-10-2014 History of tobacco use Current smoker [facility] Sex Assigned At Not on file [facility] Start: 05-10-2018 Tobacco use and exposure Never used [facility] Start: 05-10-2018 Alcohol intake Current non-dr car parker of alcohol (finding) [facility] Medical Equipment Procedure Code Equipment [...] / No Expiration Dates Noted Clinical Notes 10-14-2022 to 09-28-2023 Note Date & Type Note Facility 09-28-2023 Note Patient: Laney Larios Procedure Summary Date: 09/28/23 Room / Location: [facility] [place] [facility] Anesthesia Start: 1030 Anesthesia Stop: 1057 Procedure: EGD Diagnosis: Advanced cirrhosis of liver (CMS/HCC) Scheduled Providers: Ade Tan MD; Dhiraj Martinez MD; LOREN Hamm Responsible Provider: Dhiraj Martinez MD Anesthesia Type: MAC ASA Status: 3 Anesthesia Type: MAC Vitals Value Taken Time BP 90/51 09/28/23 1053 Temp 36.4 ???C (97.5 ???F) 09/28/23 1053 Pulse 59 09/28/23 1053 Resp 14 09/28/23 1053 SpO2 100 % 09/28/23 1053 Anesthesia Post Evaluation Patient location during evaluation: PACU Patient participation: complete - patient participated Level of consciousness: awake Pain score: 1 Pain management: adequate Airway patency: patent Cardiovascular status: acceptable Respiratory status: acceptable Patient is hemodynamically stable and is able to be discharged from PACU per anesthesia protocol. No notable events documented. [facility] 09-28-2023 Note Gastroenterology His tory and Physical Note IDENTIFYING DATA PATIENT: Laney Larios HISTORY OF PRESENT ILLNESS Laney Larios is a 68 y.o. female presenting for EGD for variceal surveillance (prior history of varices and banding) PAST MEDICAL, SURGICAL, FAMILY, and SOCIAL HISTORY Past Medical History: Past Medical History: Diagnosis Date DAVID (acute kidney injury) (CMS/HCC) Autoimmune hepatitis (CMS/HCC) Bowel obstruction (CMS/HCC) HISTORY Cirrhosis (CMS/HCC) COPD (chronic obstructive pulmonary disease) (CMS/HCC) COVID-19 04/2019 Depression Hemochromatosis Hepatic encephalopathy (CMS/HCC) HL (hearing loss) Pancreatic cyst Pancytopenia (CMS/HCC) Small bowel obstruction (CMS/HCC) Past Surgical History: Past Surgical History: Procedure Laterality Date APPENDECTOMY SECTION, LOW TRANSVERSE CHOLECYSTECTOMY COLONOSCOPY EXPLORATORY LAPAROTOMY [address] macedo to repair hernia HERNIA REPAIR HYSTERECTOMY SMALL INTESTINE SURGERY UPPER GASTROINTESTINAL ENDOSCOPY Family History: Family History Problem Relation Name Age of Onset Colon cancer Neg Hx Social History: Social History Tobacco Use Smoking status: Former Types: Cigarettes Quit date: 2014 Years since quittin.2 Smokeless tobacco: Never Vaping Use Vaping Use: Never used Substance Use Topics Alcohol use: Never Drug use: Never Allergies: No Known Allergies Home Medications: Prior to Admission medications Medication Sig Start Date End Date Taking? Authorizing Provider amLODIPine-benazepriL (Lotrel) 10-40 mg capsule amlodipine 10 mg-benazepril 40 mg capsule Yes Historical Provider, aspirin 81 mg chewable tablet aspirin 81 mg chewable tablet Yes Historical Provider, bisacodyl (Dulcolax) 10 mg suppository in the morning. Yes Historical Provider, cholecalciferol (D3-5) 5,000 Units tablet Take 5,000 Units by mouth in the morning. Yes Historical Provider, cyanocobalamin (Vitamin B-12) 1,000 mcg tablet in the morning. Yes Historical Provider, docusate sodium (Colace) 100 mg capsule 1 capsule in the morning. Yes Historical Provider, fluticasone (Flonase) 50 mcg/actuation nasal spray Administer 2 sprays into affected nostril(s) in the morning. 06/18/22 Yes Historical Provider, lactulose 10 gram/15 mL solution Take 30 mL by mouth every 8 (eight) hours. Yes Historical Provider, loratadine (Claritin) 10 mg tablet in the morning. Yes Historical Provider, magnesium oxide 400 mg magnesium capsule 1 capsule. Yes Historical Provider, midodrine (Proamatine) 10 mg tablet Take 10 mg by mouth in the morning, at noon, and at bedtime. Yes Historical Provider, multivitamin (Theragran-M) 9 mg iron-400 mcg tablet Take 1 tablet by mouth in the morning. Yes Historical Provider, nitrofurantoin, macrocrystal-monohydrate, (Macrobid) 100 mg capsule nitrofurantoin monohydrate/macrocrystals 100 mg capsule Yes Historical Provider, ondansetron (Zofran) 4 mg tablet every 8 (eight) hours. Yes Historical Provider, pantoprazole (ProtoNix) 40 mg EC tablet in the morning. Yes Historical Provider, polyethylene glycol (Glycolax) 17 gram packet Take 17 g by mouth in the morning. Yes Historical Provider, potassium chloride CR (Klor-Con) 10 mEq ER tablet 20 mEq in the morning. 08/02/17 Yes Historical Provider, rifAXIMin (Xifaxan) 550 mg tablet Take 550 mg by mouth in the morning and at bedtime. Yes Historical Provider, sertraline (Zoloft) 25 mg tablet in the morning. Yes Historical Provider, traZODone (Desyrel) 100 mg tablet Take 37.5 mg by mouth at bedtime. Yes Historical Provider, ursodiol (Actigall) 250 mg tablet every 12 (twelve) hours. 03/07/21 Yes Historical Provider, benzocaine/menthol (CEPACOL SORE THROAT, SADAF-MEN, MM) Place into mouth between cheek and gum in the morning, at noon, in the evening, and at bedtime. PRN Historical Provider, dextran 70-hypromellose (Bion Tears) 0.1-0.3 % ophthalmic solution 1 drop if needed in the morning, at noon, and at bedtime for dry eyes. Historical Provider, erythromycin (Romycin) 5 mg/gram (0.5 %) ophthalmic ointment erythromycin 5 mg/gram (0.5 %) eye ointment Historical Provider, guar gum (Nutrisource Fiber) packet Take 1 packet by mouth in the morning. Historical Provider, lidocaine (Xylocaine) 5 % ointment every 6 (six) hours. Historical Provider, menthol (Biofreeze, menthol,) 10 % cream Apply topically if needed. Historical Provider, nystatin (Mycostatin) ointment nystatin 100,000 unit/gram topical ointment Historical Provider, polyvinyl alcohol (Liquifilm Tears) 1.4 % ophthalmic solution Administer 1 drop into affected eye(s) twice a day. Historical Provider, albuterol 2.5 mg /3 mL (0.083 %) nebulizer solution albuterol sulfate 2.5 mg/3 mL (0.083 %) solution for nebulization 09/28/23 Historical Provider, ciprofloxacin (Ci (more content not included)... [facility] 09-28-2023 Note Patient: Laney Larios Procedure Information Date/Time: 09/28/23 1045 Scheduled providers: Ade Tan MD; Dhiraj Martinez MD; LOREN Hamm Procedure: EGD Location: [facility] Endoscopy Relevant Problems Anesthesia (within normal limits) Cardio denies recent chest pain/SOB (+) Essential hypertension Endo (+) Type 2 diabetes mellitus without complication (CMS/HCC) /Renal liver cirrhosis. (+) Acute kidney injury (CMS/HCC) (+) Advanced cirrhosis of liver (CMS/HCC) (+) Chronic autoimmune hepatitis (CMS/HCC) Pulmonary ex smoker, COPD (+) COPD (chronic obstructive pulmonary disease) (CMS/HCC) Clinical information reviewed: Allergies Meds OB Status Physical Exam Airway Mallampati: II TM distance: >3 FB Neck ROM: full Cardiovascular - normal exam Dental (+) upper dentures, lower dentures Pulmonary - normal exam Abdominal Anesthesia Plan ASA 3 MAC The patient is not a current smoker. Patient was not previously instructed to abstain from smoking on day of procedure. Patient did not smoke on day of procedure. intravenous induction Anesthetic plan and risks discussed with patient. Plan discussed with CAA. Additional Equipment Requests [facility] 08-17-2023 Note [facility] Gastroenterolog y Follow-Up Patient Visit CHIEF COMPLAINT Chief Complaint Patient presents with Hepatitis C HISTORY OF PRESENT ILLNESS: Laney Larios is a 68 y.o. female previously seen in the office [...] that she will be moving to the [facility] area. Recommendation was to establish with a GI provider in the area. INTERVAL 12/31/22: Mx Larios returns in follow up. 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 She has been off Imuran for approx 6 months. The Imuran was held Jun 2022 due to worsening anemia. Most recent liver enzymes ( off Imuran) were WNL Ms. Larios also follows with Dr. Marcos, Hematology in (more content not included)... [facility] 04-01-2023 Note [facility] Gastroenterolog y Follow-Up Patient Visit [...] she will be moving to the [facility]. Recommendation was to establish with a GI provider in the area. INTERVAL 12/31/22: Mx Larios returns in follow up. 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 She has been off Imuran for approx 6 months. The Imuran was held Jun 2022 due to worsening anemia. Most recent liver enzymes ( off Imuran) were WNL Ms. Larios also follow (more content not included)... [facility] 12-31-2022 Note [facility] Gastroenterolog y Follow-Up Patient Visit [...] that she will be moving to the [facility] area. Recommendation was to establish with a GI provider in the area. INTERVAL 12/31/22: Mx Larios returns in follow up. 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 She has been off Imuran for approx 6 months. The Imuran was held Jun 2022 due to worsening anemia. Most recent liver enzymes ( off Imuran) were WNL Ms. Larios als (more content not included)... [facility] 12-11-2022 Note Patient: Laney Larios Procedure Information Anesthesia Start Date/Time: 12/11/22 1019 Scheduled providers: Walyon Cavazos MD; Herb Mims MD; LOREN Curran Procedure: ENDOSCOPIC ULTRASOUND (UPPER) Location: [facility] [place] [facility] Relevant Problems Cardio (+) Essential hypertension [...] Plan discussed with CAA. Additional Equipment Requests [facility] 12-11-2022 Note Patient: Laney Larios Procedure Summary Date: 12/11/22 Room / Location: [facility] Endoscopy Anesthesia Start: 1019 Anesthesia Stop: [...] per anesthesia protocol. No notable events documented. [facility] 12-11-[address] Cavazos speaking with patient at bedside. Report called to Carolin Torres and spoke with Mandy. All questions answered at this time. Pictures from procedure and discharge instructions sent with patient back to facility Yajaira Mays RN PACU [facility] 12-11-2022 Note Airway Date/Time: 12/11/2022 10:25 AM Urgency: elective General Information and Staff Patient location during procedure: OR Anesthesiologist: Herb Mims MD Resident/INCLUSION SPECIAL EDUCATOR/CAA: LOREN Curran Performed: resident/INCLUSION SPECIAL EDUCATOR/CAA Indications and Patient Condition Indications for airway [...] 1 Number of other approaches attempted: 0 [facility] 12-02-2022 Note Faxed to [facility] [phone] Medications to take AM day of procedure with sips water only. Sertraline midodrine Medication Hold instructions: NSAIDs (Motrin,Aleve): 5 days prior to procedure Vitamins/Supplements: 5 days prior to procedure Nothing to eat or drink after midnight, including Gum, Candy, Mints, Ice chips also. At least one person needs to accompany you, to be your limo driver home and stay with you the first 24 hours after the procedure. Remove jewelry and leave at home day of procedure. Loose comfortable clothing is recommended. Bring insurance card and ID for registration purposes. [facility] 11-02-2022 Note [facility] Gastroenterolog y Follow-Up Patient Visit [...] were seen, but unable to be banded 22 unknown INR Repeat EGD was done 09/02/22 [...] that she will be moving to the [facility] area. PREVIOUS LABS/IMAGING/ENDOSCOPY: Labs: 06/14/22 Alk phos - 66 AST 18 ALT 8 Total Bili 1.1 Labs 08/17/22 Alk phos - 86 AST 20 ALT 11 Hb 7.7 Platelet 55 Labs 08/26/22 Hb 9 Platelet 48 Endoscopic procedures EGD 06/26/2021 Esophageal varices and portal hypertensive gastropathy. RECOMMENDATION: Given that the patient has been banded (more content not included)... [facility] 10-14-2022 Note Patient: Laney Larios Procedure Summary Date: 10/14/22 Room / Location: [facility] Main [place] Anesthesia Start: 1028 Anesthesia Stop: 1102 Procedure: EGD Diagnosis: Esophageal varices without bleeding, unspecified esophageal varices type ([facility]) Scheduled Providers: Ade Tan MD; Marcelina Govea [...] discharge from PACU No notable events documented. [facility] 10-14-2022 Note Patient: Laney Larios Procedure Information Date/Time: 10/14/22 1045 Scheduled providers: Ade Tan MD; Marcelina Govea MD; LOREN Hamm Procedure: EGD Location: [facility] [place] Main [place] Relevant Problems Cardio (+) Essential [...] risks discussed with patient. Plan discussed with LOREN. Additional Equipment Requests [facility] Summary Purpose Family History No Family [...] section and content) DATE CREATED AUTHOR 12/31/2017 [facility] DATE CREATED AUTHOR AUTHOR'S ORGANIZ ATION 01/05/2018 [facility] DATE CREATED AUTHOR AUTHOR'S ORGANIZ ATION 02/04/2018 [facility] DATE CREATED AUTHOR AUTHOR'S ORGANIZ ATION 09/08/2021 [facility] DATE CREATED AUTHOR AUTHOR'S ORGANIZ ATION 02/15/2022 [facility] DATE CREATED AUTHOR AUTHOR'S ORGANIZ ATION 10/02/2023 [facility] DATE CREATED AUTHOR AUTHOR'S ORGANIZ ATION 10/11/2023 [facility] ED Notes - Irina Wynn RN - 01/08/2018 3:55 AM EDTED Notes - Irina Wynn RN - 01/08/2018 3:42 AM EDTED Notes - Irina Wynn RN - 01/08/2018 3:33 AM EDT Miscellaneous Notes (unrecog nized section and content) Report given to: DEJA Sheehan at [facility] at this time. Report given to: Jayce [facility] Pt bathed head to toe d/t visible lice crawling t/o pt hair and on face. Physician and RN notified of transport. Urine drug screen not collected; error in marking collected. Patient is resting comfortably. Call light within reach. Patient updated on continued plan of care. Pt returned from CT Scan vomiting, per Dr. Meghan canseco for zofran. Patient is resting comfortably. Call light within reach. Patient updated on continued plan of care. Patient is resting comfortably. Call light within reach. Patient updated on continued plan of care. Associated Order(s): ECG 12-LEAD Formatting of this note may be different from the original. [facility] ED Physician Note: NAME: Laney Larios 62 y.o. CSN: [id number] PCP: Ghassan Peña CNP ED Course / Medical Decision Making: Patient comes in with altered mental status and seeing things and feeling fatigued. She has a history of liver cirrhosis. She states she seen at [facility] at [place]. 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 Her liver ammonia [...] do feel she needs transferred back to [facility] since that is where her care is for her cirrhosis and that is where patient wants to go. Case with [facility] transfer center they will call back when a bed available. My shift is ending so I discussed case with Dr. Dewey Arce and he will talk to [facility] and fill out transfer sheet once accepting [...] HYPOKALEMIA Disposition: Patient is being Transfer to [facility] Hospital to [facility] Prescriptions No medications on file History: Chief Complaint: [...] DISTAL RADIUS; Surgeon: Michael Latham MD; Location: [facility] Main OR; Service: Orthopedic FAM. Hx: Family [...] Procedure Abnormality Status --------- ------ CBC Auto Differential[[id number]] Abnormal Final result Please view results for these tests on the individual orders. OBTAIN VENOUS BLOOD GASES DRUGS OF ABUSE SCREEN, URINE CT Abdomen Pelvis With IV Contrast Only Preliminary Result 1. Cirrhotic morphology of the liver with splenomegaly and [id number] volume of predominantly upper abdominal ascites and stigmata of portal hypertension, similar in appearance to the prior examination. Pneumobilia and prior cholecystectomy, as before. 2. There is thickening of the wall of the ascending and [id number] transverse colon which may be related to [...] grade 1 anterolisthesis of L5 on S1. [facility]/s Workstation ID: [id number] CT Head Or Brain Without Contrast Final Result 1. No acute intracranial process. 2. Age-related atrophy with stable mild chronic small-vessel white matter ischemia. 3. Mild chronic-appearing left sphenoid sinusitis. 4. Bilateral mastoid effusions, moderate on the right and small on the left, not significantly changed. Workstation ID: [id number] XR Chest 1 View Preliminary Result No acute pulmonary abnormality is visualized. /[facility] Workstation ID: [id number] Procedures: EKG 12-lead Date/Time: 01/08/2018 12:11 AM Performed by: DEL CHRISTIANSON Authorized by: DEL CHRISTIANSON Interpreted by ED attending physician Rhythm: sinus rhythm BPM: 77 Conduction: conduction normal ST Segments: ST segments normal T Waves: T waves normal Clinical impression: abnormal ECG . . Del Christianson MD ED Physician [facility] Emergency Department (Please note that portions of [...] BE BASED ON THE PRIMARY CLINICAL RECORDS. [employer] [facility]. provides no warranty or guarantee of the accuracy or completeness of information in this document.
--- NOTE | 2023-11-15 14:22 | P.HP_ITS ---
<Statement entered by Shaikh Amy MD - 11/16/23 11:14> This documentation has been reviewed and approved.Patient was not personally seen by me. However her medical records were reviewed and case discussed with Pat and Emergency Room provider. Therapy with clinical documentation and treatment plan as outlined above Patient presented with Hepatic encephalopathy, exacerbated by unclear etiology. 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 Started patient on lactulose. Added IV Rocephin for empirical coverage against SBP HPI H&P: HPI History of Present Illness Chief complaint: GENERAL WEAKNESS Narrative: 11/15/23 1415 This is a 68-year-old female patient who is a resident of a local [facility] with a past medical history as outlined below including protein calorie malnutrition, pancytopenia of unclear etiology thoroughly worked up by hematology as an outpatient, GERD, hypertension, dysthymic disorder, COPD, and autoimmune hepatitis with cirrhosis and hyperammonemia on lactulose; who presented to the ED from her home facility after a friend found her to be lethargic and confused. She presented to the ED via EMS for further evaluation. Workup in the ED revealed pancytopenia consistent with her baseline (WBC 1.5, Hgb 9.6, PLT 46), stable CKD 3A, and stable hyperbilirubinemia at her baseline. An ammonia level was markedly elevated at 129. She remained confused and lethargic in the ED. She is being admitted as an inpatient to the hospitalist service for hepatic encephalopathy from hyperammonemia. At the time of my exam the patient is resting quietly in bed. She is lethargic but opens her eyes to voice. She is disoriented to place and time and is unable to fully participate with exam. She does follow most commands appropriately. (She is normally alert and oriented x 3 at her baseline). She cannot provide any history of events leading to this admission. Opioid HPI Opioid Management Most Recent Opioid Data: Last Pain Assessment 11/15/23 17:00 Last ORT Total Score 0 11/15/23 14:14 Last ORT Risk Category Low Risk 11/15/23 14:14 Review of Systems ROS Status of ROS unobtainable due to mental status [facility] Medical History (Updated 11/15/23 @ 13:51 by Pta Redding NP) Pancytopenia ?D61.818 - Other pancytopenia (ICD-10) GERD (gastroesophageal reflux disease) ?K21.9 - Gastro-esophageal reflux disease without esophagitis (ICD-10) Hypotension ?I95.9 - Hypotension, unspecified (ICD-10) Protein calorie malnutrition ?E46 - Unspecified protein-calorie malnutrition (ICD-10) Vitamin D deficiency ?E55.9 - Vitamin D deficiency, unspecified (ICD-10) Dry eye syndrome ?H04.129 - Dry eye syndrome of unspecified lacrimal gland (ICD-10) Hernia ?K46.9 - Unspecified abdominal hernia without obstruction or gangrene (ICD- 10) Hyperglycemia ?R73.9 - Hyperglycemia, unspecified (ICD-10) Hyperlipemia ?E78.5 - Hyperlipidemia, unspecified (ICD-10) Hepatic failure ?K72.90 - Hepatic failure, unspecified without coma (ICD-10) Cirrhosis of liver ?K74.60 - Unspecified cirrhosis of liver (ICD-10) Dysthymic disorder ?F34.1 - Dysthymic disorder (ICD-10) Depression ?F32.A - Depression, unspecified (ICD-10) COPD (chronic obstructive pulmonary disease) ?J44.9 - Chronic obstructive pulmonary disease, unspecified (ICD-10) Autoimmune hepatitis ?K75.4 - Autoimmune hepatitis (ICD-10) Surgical History (Updated 08/04/23 @ 11:58 by Jennifer Esteban) H/O: hysterectomy ?Z90.710 - Acquired absence of both cervix and uterus (ICD-10) History of cholecystectomy ?Z90.49 - Acquired absence of other specified parts of digestive tract (ICD- 10) Previous back surgery ?Z98.890 - Other specified postprocedural states (ICD-10) Family History (Updated 08/04/23 @ 12:00 by Jennifer Esteban) Other Family history not known due to adoption Social History (Updated 05/20/23 @ 20:55 by Lara Hubbard RN) Within the past year, how often did you have a drink containing alcohol: never Within the past year, how often did you have six or more drinks on one occasion: never Score interpretation: A score less than 3 is consistent with normal alcohol consumption. Smoking status: Former smoker Non-prescribed substance use: denies use Previous occupational history: retired Known occupational exposures/hazards: No Highest level of school completed/degree received: high school graduate Do you want help with school or training: No Are you now , , , , never or living with a partner: never Little interest or pleasure in doing things: not at all Feeling down, depressed, or hopeless: not at all Feel stressed/tense/nervous/anxious/difficulty sleeping: not at all Do you think of yourself as: straight/heterosexual Gender Identity: female Meds Home Medications and Allergies Home Medications ?Medication ?Instructions ?Recorded ?Confirmed ?Type albuterol sulfate 90 mcg/actuation 2 puff inhalation Q4H PRN 05/20/23 11/15/23 History aerosol inhaler shortness of breath or wheezing docusate sodium 100 mg capsule 100 mg PO DAILY 05/20/23 11/15/23 History fluticasone propionate 50 1 spray intranasal DAILY PRN 05/20/23 11/15/23 History mcg/actuation nasal allergy symptoms spray,suspension lactulose 10 gram/15 mL oral 20 g PO BID 05/20/23 11/15/23 History solution (Enulose) loratadine 10 mg chewable tablet 10 mg PO DAILY 05/20/23 11/15/23 History midodrine 10 mg tablet 10 mg PO TIDWM 05/20/23 11/15/23 History polyethylene glycol 3350 17 17 g PO DAILY PRN constipation 05/20/23 11/15/23 History gram/dose oral powder (ClearLax) polyvinyl alcohol 1.4 % eye drops 1 drp ophthalmic (eye) BID 05/20/23 11/15/23 History (Artificial Tears (polyvinyl alcohol)) potassium chloride 10 mEq 20 meq PO DAILY 05/20/23 11/15/23 History tablet,extended release (Klor-Con) rifaximin 550 mg tablet (Xifaxan) 550 mg PO BID 05/20/23 11/15/23 History sertraline 25 mg tablet 12.5 mg PO Q24H 05/20/23 11/15/23 History ursodiol 250 mg tablet 250 mg PO Q12H 05/20/23 11/15/23 History acetaminophen 325 mg tablet 650 mg PO Q6H PRN fever or pain 08/04/23 11/15/23 History benzocaine 15 mg-menthol 2.6 mg 1 hernan mucous membrane Q6H PRN sore 08/04/23 11/15/23 History lozenges (Cepacol Sore Throat throat (benzocaine-menthol)) cholecalciferol (vitamin D3) 1,250 1,250 mcg PO QWEEK 08/04/23 11/15/23 History mcg (50,000 unit) capsule (Weekly-D) magnesium oxide 400 mg PO DAILY 08/04/23 11/15/23 History ondansetron HCl 4 mg tablet 4 mg PO Q8H PRN nausea and vomiting 08/04/23 11/15/23 History pantoprazole 40 mg tablet,delayed 40 mg PO DAILY 08/04/23 11/15/23 History release (Protonix) trazodone 50 mg tablet 50 mg PO .QHS 08/04/23 11/15/23 History mirtazapine 15 mg tablet (Remeron) 7.5 mg PO .QHS 11/15/23 11/15/23 History Allergies Allergy/AdvReac Type Severity Reaction Status Date / Time No Known Drug Allergies Allergy Verified 05/20/23 18:30 Exam Constitutional Vital Signs, click to edit/add: Last Vital Signs Temp 98.4 F 11/15/23 09:42 Pulse 61 11/15/23 13:40 Resp 17 11/15/23 13:40 BP 124/68 11/15/23 13:30 Pulse Ox 99 11/15/23 13:40 O2 Del Method Room Air 11/15/23 09:42 Common normals: no apparent distress, alert and well nourished General appearance: cooperative Orientation/consciousness: Yes awake, Yes oriented to person, Yes confused and Yes lethargic; not oriented to place and not oriented to time [facility] Common normals: normocephalic, head/scalp atraumatic, hearing grossly normal bilaterally, external nose normal and moist oral mucous membranes Eye Common normals: PERRL, EOMs intact bilaterally, conjunctivae normal and no scleral icterus Alignment: alignment normal Eyelid: eyelids normal Neck & C-Spine Common normals: full ROM, supple and no JVD Chest Common normals: inspection of chest normal Chest: symmetrical chest wall rise Respiratory Common normals: normal respiratory effort, no retractions, no use of accessory muscles and clear to auscultation bilaterally Effort & inspection: able to speak in complete sentences Cardio Common normals: no JVD, regular rate, regular rhythm, S1 normal heart sound, S2 normal heart sound, no gallops, no clicks, no rub and peripheral pulses 2+ throughout Heart sounds: murmur (hsm 2/6) GI Common normals: Normal to inspection, nondistended, normoactive bowel sounds present, soft to palpation, no hepatosplenomegaly, no masses and no bruits Palpation: tender (diffuse, non-focal); no guarding and no rebound tenderness present Bladder/kidney exam: bladder normal to palpation Extremity Common normals: normal capillary refill and no pedal edema General: normal exam except as noted; no clubbing and no cyanosis Neuro [place] Coma Scale: GCS not evaluated Common normals: CN's II-XII intact bilaterally, moves all extremities, no focal motor deficits and no sensory deficits noted Speech: speech normal Psych Common normals: mental status grossly normal, thought process normal, affect normal and activity/motor behavior normal Speech: slow and delayed Mood and affect: blunted affect Thought process: confused Attention/concentration: attention grossly impaired Memory/cognition: memory grossly impaired and cognition grossly impaired Insight: poor Judgement: poor Results Labs Labs: Short CBC 11/15/23 Range/Units 09:57 WBC 1.5 L (4.0-11.0) 10^3/uL Hgb 9.6 L (12.0-16.0) g/dL Hct 29.8 L (36.0-48.0) % Plt Count 46 L (150-450) 10^3/uL BMP 11/15/23 09:57 Sodium 141 Potassium 4.3 Chloride 109 H Carbon Dioxide 20.5 L BUN 26.0 H Creatinine 1.11 H Glucose 125 H Calcium 9.6 Liver Function 11/15/23 Range/Units 10:17 Total Bilirubin 1.5 H (0.2-1.0) mg/dL Direct Bilirubin 0.5 H (0.0-0.2) mg/dL AST 48 H (15-37) U/L ALT 40 (14-59) U/L Alkaline Phosphatase 112 (46-116) U/L Albumin 2.8 L (3.4-5.0) g/dL Urine 11/15/23 Range/Units 10:13 Urine Color Yellow (YELLOW) Urine Clarity Clear (CLEAR) Urine pH 6.5 (5.0-9.0) Ur Specific [place] 1.015 (1.005-1.025) Urine Protein Negative (NEG/TRACE) mg/dL Urine Glucose (UA) Negative (NEGATIVE) mg/dL Pulse Oximetry Attestation: I have reviewed the pertinent pulse oximetry results. ECG Interpretation: Sinus rhythm Abnormal left axis deviation Consistent with pulmonary disease Abnormal ECG Compared to ECG from 08/04/2023 No significant changes Imaging Chest x-ray: Attestation: I have reviewed the pertinent imaging results. Radiologist's impression: IMPRESSION: Low volume exam, clear lungs CT scan - head: Attestation: I have reviewed the pertinent imaging results. Radiologist's impression: IMPRESSION: 1. No acute large vascular territory infarct or acute intracranial hemorrhage. 2. Similar age advanced supratentorial white matter change. While nonspecific this most commonly relates to sequela small vessel disease. Assessment and Plan Assessment and Plan (1) Hepatic encephalopathy: Assessment and Plan: Acute * Adm inpatient * I expect greater than a 2 midnight stay for medically necessary hospital care including close monitoring of labs and frequent titration of lactulose * 2/2 chronic autoimmune hepatitis/cirrhosis * Increase home lactulose from 20mg BID to TID dosing * Daily ammonia levels * Neuro checks qshift * CBC, CMP, Ammonia levels daily (2) Hyperammonemia: Assessment and Plan: Acute * Ammonia level 129 in the ED * See above (3) GERD (gastroesophageal reflux disease): Assessment and Plan: Chronic * Continue home PPI (4) Hypotension: Assessment and Plan: Chronic * Continue home midodrine (5) Protein calorie malnutrition: Assessment and Plan: Chronic * Ensure clear TID (6) Hepatic failure: Assessment and Plan: Chronic * Autoimmune hepatitis * Defer to OP GI management * Bili stable at baseline * AST slightly elevated above baseline - unclear etiology * CMP daily (7) Dysthymic disorder: Assessment and Plan: Chronic * Continue home sertraline and trazodone (8) COPD (chronic obstructive pulmonary disease): Assessment and Plan: Chronic * Continue home PRN albuterol HFA Urinary Catheter Management Urinary Catheter Management Urethral: Cath placed during this visit: yes Urethral indwelling: No Insertion date: 11/15/23 Insertion time: 10:19
[2023-11-15 14:40] LABS: Ammonia 95 umol/L (11-32)
--- NOTE | 2023-11-15 16:06 | SWNOTE1 ---
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
--- NOTE | 2023-11-15 16:29 | SWNOTE1 ---
Pt is pen[facility]entiary at [facility].
[2023-11-15] MEDS: LACTULOSE 10 GM/15 ML (237ML) SOLUTION 20 GM PO ×2 (17:18→21:11)
[2023-11-15] MEDS: MIDODRINE HCL 5 MG TABLET 10 MG PO (17:19)
[2023-11-15] MEDS: CEFTRIAXONE 1,000 MG in 0.9 % SODIUM CHLORIDE 50 ML 100 MG IV (17:23)
[2023-11-15] MEDS: 0.9 % SODIUM CHLORIDE 250 ML 10 ML IV (17:24)
[2023-11-15] MEDS: LACTATED RINGER'S SOLUTION 1,000 ML 100 ML IV (19:15)
[2023-11-15] MEDS: HEPARIN SODIUM (PORCINE) 5,000 UNIT/ML VIAL 5000 UNIT SUBQ (21:10)
[2023-11-15] MEDS: TRAZODONE HCL 50 MG TABLET PO (21:11)
[2023-11-15] MEDS: SERTRALINE HCL 50 MG TABLET 12.5 MG PO (21:11)
[2023-11-15] MEDS: MIRTAZAPINE 15 MG TABLET 7.5 MG PO (21:11)
[2023-11-15] MEDS: RIFAXIMIN 550 MG TABLET PO (21:11)
[2023-11-15] MEDS: ARTIFICIAL TEARS 300 DROP/15 ML BOTTLE EYE-BOTH (21:11)
[2023-11-15] MEDS: URSODIOL 300 MG CAPSULE PO (21:11)
[2023-11-16] VITALS (23 sets, daily range): BP systolic 95–129; BP diastolic 60–78; PULSE 65–93; TEMP 36.6–37.1; O2SAT 93–97
[2023-11-16 05:16] LABS: Eosinophils Absolute Auto 0.1 10^3/uL (0.0-0.7); Eosinophils Percent Auto 3.8 % (0.9-7.0); Hemoglobin 7.3 g/dL (12.0-16.0); Lymphocytes Absolute Auto 0.5 10^3/uL (1.2-3.8); Lymphocytes Percent Auto 36.4 % (20.5-60.0); Mean Corpuscular HGB Conc 31.9 g/dL (29.9-35.2); Mean Corpuscular Hemoglobin 34.9 pg (26.7-34.0); Mean Corpuscular Volume 109.6 fL (81.0-99.0); Mean Platelet Volume 10.9 fL (9.5-13.5); Monocytes Absolute Auto 0.1 10^3/uL (0.3-0.8); Monocytes Percent Auto 9.8 % (1.7-12.0); Neutrophils Absolute Auto 0.7 10^3/uL (1.4-6.5); Platelet Count 35 10^3/uL (150-450); Red Blood Count 2.09 10^6/uL (4.20-5.40); Red Cell Distribution Width 15.4 % (11.0-15.0)
[2023-11-16 05:24] LABS: Hematocrit 22.9 % (36.0-48.0); White Blood Count 1.3 10^3/uL (4.0-11.0)
[2023-11-16 05:32] LABS: Alanine Aminotransferase 33 U/L (14-59); Albumin Globulin Ratio 0.6; Albumin Level 2.5 g/dL (3.4-5.0); Alkaline Phosphatase 99 U/L (46-116); Anion Gap 14.6; Aspartate Amino Transferase 36 U/L (15-37); BUN Creatinine Ratio 23.6; Calcium 8.7 mg/dL (8.5-10.1); Carbon Dioxide 21.2 mmol/L (21.0-32.0); Chloride 112 mmol/L (98-107); Estimated GFR (African America >60 (>=60); Estimated GFR (Non-African Ame 52 (>=60); Globulin 4.3 g/dL; Glucose 113 mg/dL (74-106); Potassium 3.8 mmol/L (3.5-5.1); Sodium 144 mmol/L (136-145); Total Protein 6.8 g/dL (6.4-8.2)
[2023-11-16] MEDS: LACTULOSE 10 GM/15 ML (237ML) SOLUTION 20 GM PO ×3 (05:35→23:03)
[2023-11-16 05:37] LABS: Ammonia 102 umol/L (11-32)
[2023-11-16] MEDS: HEPARIN SODIUM (PORCINE) 5,000 UNIT/ML VIAL 5000 UNIT SUBQ (05:38)
[2023-11-16] MEDS: OMEPRAZOLE 40 MG CAPSULE.DR PO (05:39)
[2023-11-16] MEDS: LACTATED RINGER'S SOLUTION 1,000 ML 100 ML IV ×2 (05:41→17:51)
[2023-11-16] MEDS: ARTIFICIAL TEARS 300 DROP/15 ML BOTTLE EYE-BOTH ×2 (09:36→23:03)
[2023-11-16] MEDS: POTASSIUM CHLORIDE 10 MEQ ER TABLET 20 MEQ PO (09:37)
[2023-11-16] MEDS: DOCUSATE SODIUM 100 MG CAPSULE PO (09:37)
[2023-11-16] MEDS: MAGNESIUM OXIDE 400 MG TABLET PO (09:37)
[2023-11-16] MEDS: RIFAXIMIN 550 MG TABLET PO ×2 (09:37→23:05)
[2023-11-16] MEDS: MIDODRINE HCL 5 MG TABLET 10 MG PO ×3 (09:37→17:56)
[2023-11-16] MEDS: URSODIOL 300 MG CAPSULE PO ×2 (09:37→23:04)
--- NOTE | 2023-11-16 11:53 | PM.IMPN1 ---
Progress Note: A&P Assessment and Plan (1) Hepatic encephalopathy: Assessment and Plan: Present with hepatic encephalopathy. Unclear as to what exacerbated it. Patient was started on lactulose. She has improved from day of admission but is still drowsy/lethargic with elevated ammonia levels and not quite ready medically for discharge. She is also Rifaxin that was also continued. No acute pathology was noted on CT head. Continue with lactulose. Titrate to 2-3 bowel movements per day. Monitor ammonia levels. Monitor neurological status. She is on empirical IV Rocephin (2) Hyperammonemia: Assessment and Plan: Due to liver cirrhosis. On lactulose. Trend pneumonia. (3) Protein calorie malnutrition: Assessment and Plan: Severe protein caloric malnutrition with BMI Of nineteen, evidence of muscle wasting, poor nutritional status. On oral nutritional supplements. Continue with same Qualifiers: Protein-calorie malnutrition severity: severe Qualified Code(s): E43 - Unspecified severe protein-calorie malnutrition (4) Pancytopenia: Assessment and Plan: Chronic pancytopenia likely because of liver cirrhosis. Patient intermittently requires blood transfusion. Her hemoglobin was low today and I ordered one unit of packed red blood cells. There is no evidence of overt or active bleeding anywhere. Monitor hemoglobin (5) Chronic hypotension: Assessment and Plan: Due to liver cirrhosis and is currently on midodrine. Continue with same (6) Cirrhosis of liver: Assessment and Plan: Due to autoimmune hepatitis. No overt ascites. Has history of recurrent hepatic encephalopathy and currently on lactulose and rifaximin Qualifiers: Hepatic cirrhosis type: other cirrhosis Qualified Code(s): K74.69 - Other cirrhosis of liver (7) Autoimmune hepatitis: Assessment and Plan: History of autoimmune hepatitis that resulted in liver cirrhosis. (8) GERD (gastroesophageal reflux disease): Assessment and Plan: Continue with Protonix. Qualifiers: Esophagitis presence: without esophagitis Qualified Code(s): K21.9 - Gastro-esophageal reflux disease without esophagitis (9) Depression: Assessment and Plan: Stable mood. Continue with home medications. Qualifiers: Depression Type: major depressive disorder Major depression recurrence: recurrent Active/Remission status: in full remission Qualified Code(s): F33.42 - Major depressive disorder, recurrent, in full remission Plan Will require continued inpatient treatment of hepatic encephalopathy. Needs close monitoring of her neurological function. Patient is still demonstrating signs and symptoms of hepatic encephalopathy with elevated ammonia levels. Increase lactulose to every six hours. Continue with Rifaximin Internal Medicine - PN: Subj Subjective Interval history: Seen and examined. Patient looks tired and exhausted. She does not remember the events of yesterday and how she got here. He thinks she is better and would like to go back to standard care facility. He has improved from day of admission but she still has evidence of hepatic encephalopathy along with elevated ammonia levels. Exam Constitutional Vital Signs, click to edit/add: Last Vital Signs Temp 97.8 F 11/16/23 08:52 Pulse 87 11/16/23 09:58 Resp 18 11/16/23 08:52 BP 124/78 11/16/23 09:37 Pulse Ox 95 11/16/23 08:52 O2 Del Method Room Air 11/16/23 08:52 Documenting provider has reviewed patient's vital signs: yes General appearance: cooperative, lethargic, ill appearing and frail appearing Nutritional appearance: cachectic HENMT Common normals: normocephalic and head/scalp atraumatic Other: Bitemporal wasting Respiratory Common normals: normal respiratory effort and no use of accessory muscles Effort & inspection: able to speak in complete sentences Cardio Common normals: regular rate, regular rhythm, S1 normal heart sound and S2 normal heart sound GI Common normals: Normal to inspection, nondistended, normoactive bowel sounds present, soft to palpation, non-tender and no hepatosplenomegaly Extremity Common normals: normal to inspection and full ROM Neuro Common normals: oriented x3, moves all extremities, no focal motor deficits and no sensory deficits noted Sensorium/orientation: lethargic, somnolent and fluctuating sensorium Speech: speech normal Psych Common normals: cooperative, denies homicidal ideation and denies suicidal ideation Internal Medicine - PN: Obj Da Labs Labs: Laboratory Results - last 24 hr 11/15/23 11/15/23 11/15/23 10:17 12:04 14:10 WBC RBC Hgb Hct MCV MCH MCHC RDW Plt Count MPV Neut % (Auto) Lymph % (Auto) [place] % (Auto) Eos % (Auto) Baso % (Auto) Neut # (Auto) Lymph # (Auto) [place] # (Auto) Eos # (Auto) Baso # (Auto) Abs Immat Gran (auto) Imm/Tot Granulo (auto) Sodium Potassium Chloride Carbon Dioxide Anion Gap BUN Creatinine Est GFR ( Amer) Est GFR (Non-Af Amer) BUN/Creatinine Ratio Glucose Calcium Total Bilirubin 1.5 H Direct Bilirubin 0.5 H AST 48 H ALT 40 Alkaline Phosphatase 112 Ammonia 129 H* 95 H* Total Protein 7.6 Albumin 2.8 L Globulin 4.8 Albumin/Globulin Ratio 0.6 Blood Type Antibody Screen Crossmatch 11/16/23 05:07 WBC 1.3 L* RBC 2.09 L Hgb 7.3 L Hct 22.9 L* MCV 109.6 H MCH 34.9 H MCHC 31.9 RDW 15.4 H Plt Count 35 L MPV 10.9 Neut % (Auto) 50.0 Lymph % (Auto) 36.4 [place] % (Auto) 9.8 Eos % (Auto) 3.8 Baso % (Auto) 0.0 L Neut # (Auto) 0.7 L Lymph # (Auto) 0.5 L [place] # (Auto) 0.1 L Eos # (Auto) 0.1 Baso # (Auto) 0.0 Abs Immat Gran (auto) 0.00 Imm/Tot Granulo (auto) 0.0 Sodium 144 Potassium 3.8 Chloride 112 H Carbon Dioxide 21.2 Anion Gap 14.6 BUN 25.0 H Creatinine 1.06 H Est GFR ( Amer) >60 Est GFR (Non-Af Amer) 52 L BUN/Creatinine Ratio 23.6 Glucose 113 H Calcium 8.7 Total Bilirubin 1.0 Direct Bilirubin AST 36 ALT 33 Alkaline Phosphatase 99 Ammonia 102 H* Total Protein 6.8 Albumin 2.5 L Globulin 4.3 Albumin/Globulin Ratio 0.6 Blood Type A Positive Antibody Screen Negative Crossmatch See Detail Urinary Catheter Management Urinary Catheter Management Urethral: Cath placed during this visit: yes Urethral indwelling: No Insertion date: 11/15/23 Insertion time: 10:19
--- NOTE | 2023-11-16 12:50 | SWNOTE1 ---
SW faxed updates to [facility]. Updates included physician notes, labs, vitals, nursing notes, youth care specialistmanager sales training report.
[2023-11-16 16:40] LABS: Hematocrit 26.8 % (36.0-48.0); Hemoglobin 8.8 g/dL (12.0-16.0)
[2023-11-16] MEDS: CEFTRIAXONE 1,000 MG in 0.9 % SODIUM CHLORIDE 50 ML 100 MG IV (17:56)
[2023-11-16] MEDS: SERTRALINE HCL 50 MG TABLET 12.5 MG PO (23:04)
[2023-11-16] MEDS: MIRTAZAPINE 15 MG TABLET 7.5 MG PO (23:05)
[2023-11-16] MEDS: TRAZODONE HCL 50 MG TABLET PO (23:05)
[2023-11-16] MEDS: ENSURE CLEAR 237 ML LIQUID PO (23:05)
[2023-11-17] VITALS (10 sets, daily range): BP systolic 91–118; BP diastolic 55–67; PULSE 57–78; TEMP 36.5–37.1; O2SAT 91–92
[2023-11-17] MEDS: LACTATED RINGER'S SOLUTION 1,000 ML 100 ML IV (05:07)
[2023-11-17 05:21] LABS: Eosinophils Absolute Auto 0.1 10^3/uL (0.0-0.7); Eosinophils Percent Auto 2.9 % (0.9-7.0); Hematocrit 25.3 % (36.0-48.0); Hemoglobin 8.3 g/dL (12.0-16.0); Immature Granulocytes Abs Auto 0.01 10^3/uL (0.00-0.03); Immature Granulocytes Pct Auto 0.6 % (0.0-0.5); Lymphocytes Absolute Auto 0.7 10^3/uL (1.2-3.8); Lymphocytes Percent Auto 38.8 % (20.5-60.0); Mean Corpuscular HGB Conc 32.8 g/dL (29.9-35.2); Mean Corpuscular Hemoglobin 34.4 pg (26.7-34.0); Mean Platelet Volume 10.7 fL (9.5-13.5); Monocytes Absolute Auto 0.2 10^3/uL (0.3-0.8); Monocytes Percent Auto 11.2 % (1.7-12.0); Neutrophils Absolute Auto 0.8 10^3/uL (1.4-6.5); Neutrophils Percent Auto 46.5 % (43.0-75.0); Platelet Count 34 10^3/uL (150-450); Red Blood Count 2.41 10^6/uL (4.20-5.40); Red Cell Distribution Width 17.7 % (11.0-15.0); White Blood Count 1.7 10^3/uL (4.0-11.0)
[2023-11-17 05:34] LABS: Ammonia 98 umol/L (11-32)
[2023-11-17 05:35] LABS: Alanine Aminotransferase 26 U/L (14-59); Albumin Globulin Ratio 0.6; Albumin Level 2.3 g/dL (3.4-5.0); Alkaline Phosphatase 88 U/L (46-116); Anion Gap 12.4; Aspartate Amino Transferase 26 U/L (15-37); BUN Creatinine Ratio 19.8; Bilirubin Total 1.4 mg/dL (0.2-1.0); Calcium 8.6 mg/dL (8.5-10.1); Carbon Dioxide 21.5 mmol/L (21.0-32.0); Chloride 112 mmol/L (98-107); Estimated GFR (African America >60 (>=60); Estimated GFR (Non-African Ame 55 (>=60); Globulin 3.9 g/dL; Glucose 92 mg/dL (74-106); Potassium 3.9 mmol/L (3.5-5.1); Sodium 142 mmol/L (136-145); Total Protein 6.2 g/dL (6.4-8.2)
[2023-11-17] MEDS: OMEPRAZOLE 40 MG CAPSULE.DR PO (06:01)
[2023-11-17] MEDS: LACTULOSE 10 GM/15 ML (237ML) SOLUTION 20 GM PO (06:01)
[2023-11-17] MEDS: RIFAXIMIN 550 MG TABLET PO (08:33)
[2023-11-17] MEDS: MAGNESIUM OXIDE 400 MG TABLET PO (08:33)
[2023-11-17] MEDS: DOCUSATE SODIUM 100 MG CAPSULE PO (08:33)
[2023-11-17] MEDS: MIDODRINE HCL 5 MG TABLET 10 MG PO (08:33)
[2023-11-17] MEDS: URSODIOL 300 MG CAPSULE PO (08:33)
[2023-11-17] MEDS: POTASSIUM CHLORIDE 10 MEQ ER TABLET 20 MEQ PO (08:33)
--- NOTE | 2023-11-17 10:54 | P.DS_ITS ---
DS: Providers Provider Date of admission: 11/15/23 13:56 Primary care physician: NAMAN CARBAJAL Admitting clinician: Shaikh Amy Attending physician on admission: Shaikh Amy Consults: 11/16/23 16:22 Occupational Therapy Eval and Treat Routine Reason for consultation: weakness Physical Therapy Eval and Treat Routine Reason for consultation: weakness Attending physician on discharge: Shaikh Amy Discharging clinician: Shaikh Amy Anticipated date of discharge: 11/17/23 DS: Diagnosis Discharge Diagnosis (1) Hepatic encephalopathy: Assessment and plan: Elevated ammonia but clinically improved. stable for discharge on lactulos/rifaximin. (2) Hyperammonemia: Assessment and plan: chronically elevated. c/w lactulos, rifaximin (3) Protein calorie malnutrition: Assessment and plan: c/w oral nutritional supplements Qualifiers: Protein-calorie malnutrition severity: severe Qualified Code(s): E43 - Unspecified severe protein-calorie malnutrition (4) Pancytopenia: Assessment and plan: required one unit PRBC. Hb stable (5) Chronic hypotension: Assessment and plan: C/w midodrine. 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 cw home meds. Qualifiers: Depression Type: major depressive disorder Major depression recurrence: recurrent Active/Remission status: in full remission Qualified Code(s): F33.42 - Major depressive disorder, recurrent, in full remission DS: Summary Hospital Course Hospital Course: 68 y o who resides in extended care facility was brought over for confusion, drowsiness and lethargy to [facility] ED. Patient was unable to provide any information due to confusion/Lethargy. Her work up in ED was consistent with hepatic encephalopathy. Patient has prior hx of HE and is on lactulos and rifaximin. No acute cause/reversible etiology on work up and patient did not have any evidence of acute infection. She was treated with lactulose and IV rocephin for empirical sbp coverage and her clinical status improved progressively. She was recommended to be compliant with her lactulos and titrate dose to 2-3 bowel movements a day. Stable for discharge. Status at Discharge Overall status at discharge: patient is back to baseline Time Spent with Patient Time attestation: Total time spent providing and/or coordinating discharge services: Time spent: greater than 30 minutes Exam Constitutional Vital Signs, click to edit/add: Last Vital Signs Temp 98.0 F 11/17/23 08:19 Pulse 78 11/17/23 10:00 Resp 18 11/17/23 08:19 BP 118/67 11/17/23 08:33 Pulse Ox 91 L 11/17/23 08:19 O2 Del Method Room Air 11/17/23 08:19 Documenting provider has reviewed patient's vital signs: yes General appearance: cooperative, ill appearing and frail appearing Nutritional appearance: cachectic HENMT Common normals: normocephalic and head/scalp atraumatic Other: Bitemporal wasting Respiratory Common normals: normal respiratory effort and no use of accessory muscles Effort & inspection: able to speak in complete sentences Cardio Common normals: regular rate, regular rhythm, S1 normal heart sound and S2 normal heart sound GI Common normals: Normal to inspection, nondistended, normoactive bowel sounds present, soft to palpation, non-tender and no hepatosplenomegaly Extremity Common normals: normal to inspection and full ROM Neuro Common normals: oriented x3, moves all extremities, no focal motor deficits and no sensory deficits noted Speech: speech normal Psych Common normals: cooperative, denies homicidal ideation and denies suicidal ideation DS: Data Data Completed and Pending Labs on day of discharge: Labs from last 24 hours 11/17/23 11/16/23 11/16/23 05:02 16:13 05:07 WBC 1.7 L RBC 2.41 L Hgb 8.3 L 8.8 L Hct 25.3 L 26.8 L MCV 105.0 H MCH 34.4 H MCHC 32.8 RDW 17.7 H Plt Count 34 L MPV 10.7 Neut % (Auto) 46.5 Lymph % (Auto) 38.8 [place] % (Auto) 11.2 Eos % (Auto) 2.9 Baso % (Auto) 0.0 L Neut # (Auto) 0.8 L Lymph # (Auto) 0.7 L [place] # (Auto) 0.2 L Eos # (Auto) 0.1 Baso # (Auto) 0.0 Abs Immat Gran (auto) 0.01 Imm/Tot Granulo (auto) 0.6 H Sodium 142 Potassium 3.9 Chloride 112 H Carbon Dioxide 21.5 Anion Gap 12.4 BUN 20.0 H Creatinine 1.01 Est GFR ( Amer) >60 Est GFR (Non-Af Amer) 55 L BUN/Creatinine Ratio 19.8 Glucose 92 Calcium 8.6 Total Bilirubin 1.4 H AST 26 ALT 26 Alkaline Phosphatase 88 Ammonia 98 H* Total Protein 6.2 L Albumin 2.3 L Globulin 3.9 Albumin/Globulin Ratio 0.6 Blood Type A Positive Antibody Screen Negative Crossmatch See Detail Discharge Plan Discharge Disposition: Xfer [facility] Condition: Fair Discharge Medications: Continued albuterol sulfate 90 mcg/actuation HFA aerosol inhaler 2 puff INHALATION Q4H PRN (Reason: shortness of breath or wheezing) fluticasone propionate 50 mcg/actuation spray,suspension 1 spray INTRANASAL DAILY PRN (Reason: allergy symptoms) lactulose [Enulose] 10 gram/15 mL solution 20 g PO BID Rx Instructions: at HS and AM loratadine 10 mg tablet,chewable 10 mg PO DAILY midodrine 10 mg tablet 10 mg PO TIDWM Rx Instructions: at AM afternoon and HS polyethylene glycol 3350 [ClearLax] 17 gram/dose powder 17 g PO DAILY PRN (Reason: constipation) polyvinyl alcohol [Artificial Tears (polyvin alc)] 1.4 % drops 1 drp ophthalmic (eye) BID potassium chloride [Klor-Con 10] 10 mEq tablet extended release 20 meq PO DAILY Xifaxan 550 mg tablet 550 mg PO BID sertraline 25 mg tablet 12.5 mg PO Q24H Rx Instructions: at HS ursodiol 250 mg tablet 250 mg PO Q12H docusate sodium 100 mg capsule 100 mg PO DAILY magnesium oxide 400 mg magnesium tablet 400 mg PO DAILY acetaminophen 325 mg tablet 650 mg PO Q6H PRN (Reason: fever or pain) cholecalciferol (vitamin D3) [Weekly-D] 1,250 mcg (50,000 unit) capsule 1,250 mcg PO QWEEK Rx Instructions: ON WEDNESDAY ondansetron HCl 4 mg tablet 4 mg PO Q8H PRN (Reason: nausea and vomiting) pantoprazole [Protonix] 40 mg tablet,delayed release (DR/EC) 40 mg PO DAILY trazodone 50 mg tablet 50 mg PO .QHS mirtazapine [Remeron] 15 mg tablet 7.5 mg PO .QHS Discontinued Cepacol Sore Throat (amy-men) 15-2.6 mg lozenge 1 hernan mucous membrane Q6H PRN (Reason: sore throat) Print Language: Romanian Forms: Portal Instructions Follow Up Appointments: Follow up with PCP in 1-2 weeks
--- NOTE | 2023-11-17 11:20 | CM.NOTE ---
Rounds made with Dr. Reyes, pt can discharge back to [facility].
--- NOTE | 2023-11-17 11:56 | SWNOTE1 ---
Pt is ready for discharge back to [facility] snf. SHORTY sent over dc med rec, labs, vitals, and updated nursing notes via email to Jaziel at [facility] admissions. SHORTY attempted fax but it was not going through after several attempts. SHORTY notified nursing and [facility] of time. SHORTY attempted to call pt's cell phone listed, but it was off, SHORTY left voicemail. SHORTY attempted to call home phone as well, but no answer. Pt is returning to [facility] snf.
--- NOTE | 2023-11-17 12:36 | PC.NURSE ---
[employer] called Kayla Vasquez and gave report to Kaylan upon patient's discharge.
== END 2023-11-17 12:34 ==
LOC: ER 12:47 → MS 14:01
PROVIDERS: Nurse Practitioner; Admitting Provider Internal Medicine; Emergency Provider Emergency Medicine; PCP Internal Medicine; Visit Provider Internal Medicine
DX: K74.69 Other cirrhosis of liver (principal); K76.82 Hepatic encephalopathy; E72.20 Disorder of urea cycle metabolism, unspecified; K72.10 Chronic hepatic failure without coma; F34.1 Dysthymic disorder; K75.4 Autoimmune hepatitis; J44.9 Chronic obstructive pulmonary disease, unspecified; K21.9 Gastro-esophageal reflux disease without esophagitis; Z79.899 Other long term (current) drug therapy; Z87.891 Personal history of nicotine dependence; Z90.710 Acquired absence of both cervix and uterus; Z90.49 Acquired absence of other specified parts of digestive tract; Z68.1 Body mass index [BMI] 19.9 or less, adult; E43 Unspecified severe protein-calorie malnutrition; E55.9 Vitamin D deficiency, unspecified; E78.5 Hyperlipidemia, unspecified; K46.9 Unspecified abdominal hernia without obstruction or gangrene; D61.818 Other pancytopenia; N18.31 Chronic kidney disease, stage 3a; E80.6 Other disorders of bilirubin metabolism; I95.89 Other hypotension; F33.42 Major depressive disorder, recurrent, in full remission; R64 Cachexia
CPT/HCPCS: 36415; 36430; 51702; 70450; 71045; 80048; 80053; 80076; 81001; 82140; 83605; 85007; 85014; 85018; 85025; 85027; 86850; 86900; 86901; 87040; 93005; 96361; 96365; 96366; 96372; 97165; 99285; P9016

== ENCOUNTER 2024-01-05 14:16 | Inpatient (IN) | payer MEDICAID, SELFPAY ==
[2024-01-05] VITALS (31 sets, daily range): BP systolic 106–126; BP diastolic 59–75; PULSE 59–71; TEMP 36.4–36.8; O2SAT 98–100; BMI 23.4; BMI 19.0
--- NOTE | 2024-01-05 14:19 | XR_ITS ---
[address] [address] Patient Name: LANEY LARIOS MRN: [id number] date: 1955 Sex: F Assigned Patient Location: ER Current Patient Location: ED.MAIN Accession/Order Number: [id number] Exam Date: 01/05/2024 14:23 Report Date: 01/05/2024 14:43 At the request of: JOHNNA ANDRADE Procedure: XR chest 1V Exam: Radiographs: XR chest 1V Reason for exam: Altered mental status Comparison: Chest x-ray dated 11/15/2023 XR/XR chest 1V IMPRESSION: Pulmonary venous hypertension. Chest is otherwise unremarkable. Electronically authenticated by: KENNETH BOO Date: 01/05/2024 14:43
--- NOTE | 2024-01-05 14:19 | CT_ITS ---
The [address] [address] Patient Name: LANEY LARIOS MRN: [id number] date: 1955 Sex: F Assigned Patient Location: ER Current Patient Location: ED.MAIN Accession/Order Number: [id number] Exam Date: 01/05/2024 14:23 Report Date: 01/05/2024 14:40 At the request of: JOHNNA ANDRADE Procedure: CT stroke head/brain wo con EXAM: CT scan of the head without contrast. Dose reduction technique used: Automated exposure control and/or adjustment of the mA and/or kV according to patient size and/or use of iterative reconstruction technique. REASON FOR EXAM: Altered mental status COMPARISON: CT scan dated 11/15/2023 FINDINGS: No intracranial hemorrhage, mass effect, midline shift, fractures or evidence of acute ischemic infarct. No hydrocephalus. 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 Mild generalized cerebral and cerebellar volume loss. Mild small vessel gliosis. Paranasal sinuses and mastoid air cells are clear. Remainder unremarkable. CT/CT stroke head/brain wo con IMPRESSION: No acute intracranial abnormalities. Electronically authenticated by: KENNETH BOO Date: 01/05/2024 14:40
--- NOTE | 2024-01-05 14:19 | ECG_ITS ---
The [facility] Test Date: 2024-01-05 Pat Name: LANEY LARIOS Department: Room: - Gender: Female [employer] Roller: : 1955 Requested By: NAMAN CARBAJAL Order Number: [id number] Reading MD: SELMA GONZALEZ Measurements Intervals [place] Rate: 71 P: -31032 WV: -328[address] QRS: -34 QRSD: 92 T: 90 QT: 378 QTc: 400 Interpretive Statements 1400 Undetermined rhythm (Possible supraventricular rhythm) 7200 Abnormal left axis deviation 8003 Consistent with pulmonary disease 9150 abnormal ECG Compared to ECG 11/15/2023 09:44:36 Sinus rhythm no longer present Electronically Signed On 01-05-2024 22:42:47 EDT by SELMA GONZALEZ
--- NOTE | 2024-01-05 14:23 | ED.GENADUL1 ---
HPI HPI - General Adult General Chief complaint: Altered Mental Status Stated complaint: GENERAL WEAKNESS Time Seen by Provider: 01/05/24 14:19 Limitations: altered mental status History of Present Illness HPI narrative: Is a 68-year-old female with a history of autoimmune hepatitis who presents to the emergency department from an extended care facility where she is a resident for the evaluation of altered mental status that began at an unknown time. The nurse who called report states that the patient was fine last night when she left. Apparently throughout the day today the patient has been more altered and obtunded than normal. She had outpatient labs done last week and earlier this week showing an elevated ammonia that was treated with an increase in lactulose. Nurse states that the patient's labs from earlier this week are all at her baseline although she does have critical low white blood cell count and receives frequent blood transfusions for chronic anemia. No falls reported. Apparently the patient refuses to change her CODE STATUS and remains a full code despite multiple conversations with her at the halfway about hospice care or comfort care. Related Data Home Medications ?Medication ?Instructions ?Recorded ?Confirmed albuterol sulfate 90 mcg/actuation 2 puff inhalation Q4H PRN 05/20/23 01/05/24 aerosol inhaler shortness of breath or wheezing docusate sodium 100 mg capsule 100 mg PO DAILY 05/20/23 01/05/24 fluticasone propionate 50 1 spray intranasal DAILY PRN 05/20/23 01/05/24 mcg/actuation nasal allergy symptoms spray,suspension lactulose 10 gram/15 mL oral 20 g PO BID 05/20/23 01/05/24 solution (Enulose) loratadine 10 mg chewable tablet 10 mg PO DAILY 05/20/23 01/05/24 midodrine 10 mg tablet 10 mg PO TIDWM 05/20/23 01/05/24 polyethylene glycol 3350 17 17 g PO DAILY PRN constipation 05/20/23 01/05/24 gram/dose oral powder (ClearLax) potassium chloride 10 mEq 20 meq PO DAILY 05/20/23 01/05/24 tablet,extended release (Klor-Con) rifaximin 550 mg tablet (Xifaxan) 550 mg PO BID 05/20/23 01/05/24 sertraline 25 mg tablet 12.5 mg PO Q24H 05/20/23 01/05/24 ursodiol 250 mg tablet 250 mg PO Q12H 05/20/23 01/05/24 acetaminophen 325 mg tablet 650 mg PO Q6H PRN fever or pain 08/04/23 01/05/24 cholecalciferol (vitamin D3) 1,250 1,250 mcg PO QWEEK 08/04/23 01/05/24 mcg (50,000 unit) capsule (Weekly-D) magnesium oxide 400 mg PO DAILY 08/04/23 01/05/24 pantoprazole 40 mg tablet,delayed 40 mg PO DAILY 08/04/23 01/05/24 release (Protonix) trazodone 50 mg tablet 50 mg PO .QHS 08/04/23 01/05/24 mirtazapine 15 mg tablet (Remeron) 7.5 mg PO .QHS 11/15/23 01/05/24 Allergies Allergy/AdvReac Type Severity Reaction Status Date / Time No Known Drug Allergies Allergy Verified 05/20/23 18:30 Opioid HPI Opioid Management Most Recent Opioid Data: Last ORT Total Score 0 11/15/23 14:14 Last ORT Risk Category Low Risk 11/15/23 14:14 Review of Systems ROS Constitutional Denies: fever or chills Ears, nose, mouth, and throat Denies: throat pain or nasal congestion Respiratory Denies: shortness of breath Gastrointestinal Denies: nausea or vomiting Integumentary/Breast Denies: rash Hematologic/Lymphatic Denies: easy bruising or easy bleeding [facility] Medical History (Updated 01/05/24 @ 16:44 by RUKHSANA Steen) Hyperammonemia ?E72.20 - Disorder of urea cycle metabolism, unspecified (ICD-10) Chronic hypotension ?I95.89 - Other hypotension (ICD-10) Pancytopenia ?D61.818 - Other pancytopenia (ICD-10) GERD (gastroesophageal reflux disease) ?K21.9 - Gastro-esophageal reflux disease without esophagitis (ICD-10) Hypotension ?I95.9 - Hypotension, unspecified (ICD-10) Protein calorie malnutrition ?E46 - Unspecified protein-calorie malnutrition (ICD-10) Vitamin D deficiency ?E55.9 - Vitamin D deficiency, unspecified (ICD-10) Dry eye syndrome ?H04.129 - Dry eye syndrome of unspecified lacrimal gland (ICD-10) Hernia ?K46.9 - Unspecified abdominal hernia without obstruction or gangrene (ICD-10) Hyperglycemia ?R73.9 - Hyperglycemia, unspecified (ICD-10) Hyperlipemia ?E78.5 - Hyperlipidemia, unspecified (ICD-10) Hepatic failure ?K72.90 - Hepatic failure, unspecified without coma (ICD-10) Cirrhosis of liver ?K74.60 - Unspecified cirrhosis of liver (ICD-10) Dysthymic disorder ?F34.1 - Dysthymic disorder (ICD-10) Depression ?F32.A - Depression, unspecified (ICD-10) COPD (chronic obstructive pulmonary disease) ?J44.9 - Chronic obstructive pulmonary disease, unspecified (ICD-10) Autoimmune hepatitis ?K75.4 - Autoimmune hepatitis (ICD-10) Surgical History (Updated 08/04/23 @ 11:58 by Jennifer Esteban) H/O: hysterectomy ?Z90.710 - Acquired absence of both cervix and uterus (ICD-10) History of cholecystectomy ?Z90.49 - Acquired absence of other specified parts of digestive tract (ICD-10) Previous back surgery ?Z98.890 - Other specified postprocedural states (ICD-10) Family History (Updated 08/04/23 @ 12:00 by Jennifer Esteban) Other Family history not known due to adoption Social History Within the past year, how often did you have a drink containing alcohol: never Within the past year, how often did you have six or more drinks on one occasion: never Score interpretation: A score less than 3 is consistent with normal alcohol consumption. Smoking status: Former smoker Non-prescribed substance use: denies use Previous occupational history: retired Known occupational exposures/hazards: No Highest level of school completed/degree received: high school graduate Do you want help with school or training: No Are you now , , , , never or living with a partner: never Little interest or pleasure in doing things: not at all Feeling down, depressed, or hopeless: not at all Feel stressed/tense/nervous/anxious/difficulty sleeping: not at all Do you think of yourself as: straight/heterosexual Gender Identity: female Exam Narrative Exam Narrative: Gen.: Awake, Obtunded, coughs occasionally Head: Normocephalic, atraumatic ENT: Moist mucous membranes Respiratory: No respiratory distress, lungs clear bilaterally Cardio: Regular rate and rhythm Gastrointestinal: Abdomen is soft, nondistended and nontender to palpation Extremities: Moves extremities equally, no injuries noted Psych: Normal mood and affect Neuro: ANO x 0, does not respond to questions Skin: Warm, dry, intact Constitutional Vital Signs, click to edit/add: Last Vital Signs Temp 98.2 F 01/05/24 14:21 Pulse 71 01/05/24 14:21 Resp 18 01/05/24 14:21 BP 111/63 01/05/24 15:30 Pulse Ox 99 01/05/24 15:40 O2 Del Method Room Air 01/05/24 14:21 Course Vital Signs Vital signs: Vital Signs Pulse Rate 70 01/05/24 14:19 Respiratory Rate 18 01/05/24 14:19 Pulse Oximetry 100 01/05/24 14:19 Temperature 98.2 F 01/05/24 14:21 Pulse Rate 71 01/05/24 14:21 Respiratory Rate 18 01/05/24 14:21 Blood Pressure 111/63 01/05/24 15:30 Pulse Oximetry 99 01/05/24 15:40 Oxygen Delivery Method Room Air 01/05/24 14:21 Medical Decision Making MDM Narrative Medical decision making narrative: Patient given IV fluids, urine specimen is unremarkable and she was immediately sent for stroke protocol CT of the brain with chest x-ray. Patient's images are unremarkable, she does have pulmonary venous hypertension on chest x-ray consistent with her autoimmune hepatitis. She is in no respiratory distress and maintained stable vital signs in the ER. She was found to have elevated ammonia at 188. The remainder of her labs are stable and at her baseline. Discussed with Dr. Skinner for admission for hospitalist service. He will order Xifaxan for the patient. She is stable at time of admission to ICU. SHARED APC VISIT, PHYSICIAN ATTESTATION: [id number] I performed a substantive part of the MDM during the patient?s E/M visit. I personally evaluated and examined the patient. I personally made or approved the documented management plan and acknowledge its risk of complications. Medical Records Medical records reviewed: Yes I reviewed the patient's medical records Lab Data Lab results reviewed: Yes I reviewed the patient's lab results Labs: Lab Results 01/05/24 01/05/24 Range/Units 14:52 15:05 WBC 1.9 L (4.0-11.0) 10^3/uL RBC 2.33 L (4.20-5.40) 10^6/uL Hgb 8.3 L (12.0-16.0) g/dL Hct 25.7 L (36.0-48.0) % MCV 110.3 H (81.0-99.0) fL MCH 35.6 H (26.7-34.0) pg MCHC 32.3 (29.9-35.2) g/dL RDW 15.6 H (11.0-15.0) % Plt Count 38 L (150-450) 10^3/uL MPV 10.8 (9.5-13.5) fL Seg Neuts % (Manual) 56.0 Band Neutrophils % 0.0 (0-5) % Lymphocytes % (Manual) 38.0 (20.5-60.0) % Monocytes % (Manual) 2.0 (1.7-12.0) % Eosinophils % (Manual) 4.0 (0.9-7.0) % Basophils % (Manual) 0.0 L (0.2-2.0) % Neutrophils # (Manual) 1.06 L (1.4-6.5) 10^3/uL Band Neutrophils # 0.0 (0.0-0.3) 10^3/uL Lymphocytes # (Manual) 0.72 L (1.20-3.80) 10^3/uL Monocytes # (Manual) 0.03 L (0.30-0.80) 10^3/uL Eosinophils # (Manual) 0.07 (0.00-0.70) 10^3/uL Basophils # (Manual) 0.00 (0.00-0.10) 10^3/uL Macrocytosis 1+ PT 11.4 (9.0-11.6) sec INR 1.08 VBG pH 7.421 (7.330-7.430) VBG pCO2 32.2 L (40.0-52.0) mmHg Sodium 144 (136-145) mmol/L Potassium 4.5 (3.5-5.1) mmol/L Chloride 114 H (98-107) mmol/L Carbon Dioxide 23.4 (21.0-32.0) mmol/L Anion Gap 11.1 BUN 26.0 H (7.0-18.0) mg/dL Creatinine 1.23 H (0.55-1.02) mg/dL Est GFR ( Amer) 53 L (>=60) Est GFR (Non-Af Amer) 44 L (>=60) BUN/Creatinine Ratio 21.1 Glucose 129 H (74-106) mg/dL Lactate 1.8 (0.4-2.0) mmol/L Calcium 9.0 (8.5-10.1) mg/dL Total Bilirubin 1.0 (0.2-1.0) mg/dL AST 32 (15-37) U/L ALT 23 (14-59) U/L Alkaline Phosphatase 131 H (46-116) U/L Ammonia 188 H* (11-32) umol/L Troponin I High Sens 8.0 (4.0-51.3) pg/mL NT-Pro-B Natriuret Pep 487.0 (<=900.0) pg/mL Total Protein 7.7 (6.4-8.2) g/dL Albumin 2.8 L (3.4-5.0) g/dL Globulin 4.9 g/dL Albumin/Globulin Ratio 0.6 Procalcitonin 0.17 (0.00-0.50) ng/mL TSH 1.647 (0.358-3.740) uIU/mL Urine Color Yellow (YELLOW) Urine Clarity Clear (CLEAR) Urine pH 6.5 (5.0-9.0) Ur Specific [place] 1.020 (1.005-1.025) Urine Protein Negative (NEG/TRACE) mg/dL Urine Glucose (UA) Negative (NEGATIVE) mg/dL Urine Ketones Negative (NEGATIVE) mg/dL Urine Occult Blood Trace-i (NEGATIVE) Urine Nitrite Negative (NEGATIVE) Urine Bilirubin Negative (NEGATIVE) Urine Urobilinogen 0.2 (0.2-1.0) EU/dL Ur Leukocyte Esterase Negative (NEGATIVE) Urine RBC 0-2 (0-2) #/HPF Urine WBC 0-2 A (NONE SEEN) #/HPF Ur Squamous Epith Cells Few A (NONE/RARE) #/LPF Urine Crystals None seen (None Seen) #/HPF Urine Bacteria Moderate A (NONE SEEN) #/HPF Urine Casts None seen (NONE SEEN) #/LPF Urine Mucus Moderate A (NONE SEEN) Ur Culture Indicated? Yes Imaging Data CT scan - head: Attestation: I have reviewed the pertinent imaging results. Radiologist's impression: ITS Impressions Brain CT 01/05/24 14:19 IMPRESSION: No acute intracranial abnormalities. Electronically authenticated by: KENNETH BOO Date: 01/05/2024 14:40 Chest X-Ray 01/05/24 14:19 IMPRESSION: Pulmonary venous hypertension. Chest is otherwise unremarkable. Electronically authenticated by: KENNETH BOO Date: 01/05/2024 14:43 ECG Data Attestation: I personally reviewed and interpreted this ECG as follows: (Normal sinus rhythm at a rate of 71, no acute ST elevation or ectopy. EKG reviewed by attending physician) Discharge Plan Discharge Chief Complaint: Altered Mental Status Patient Disposition: Admitted As Inpatient Time of Disposition Decision: 16:44 Prescriptions / Home Meds: No Action albuterol sulfate 90 mcg/actuation HFA aerosol inhaler 2 puff INHALATION Q4H PRN (Reason: shortness of breath or wheezing) fluticasone propionate 50 mcg/actuation spray,suspension 1 spray INTRANASAL DAILY PRN (Reason: allergy symptoms) lactulose [Enulose] 10 gram/15 mL solution 20 g PO BID Rx Instructions: at HS and AM loratadine 10 mg tablet,chewable 10 mg PO DAILY midodrine 10 mg tablet 10 mg PO TIDWM Rx Instructions: at AM afternoon and HS polyethylene glycol 3350 [ClearLax] 17 gram/dose powder 17 g PO DAILY PRN (Reason: constipation) potassium chloride [Klor-Con 10] 10 mEq tablet extended release 20 meq PO DAILY Xifaxan 550 mg tablet 550 mg PO BID sertraline 25 mg tablet 12.5 mg PO Q24H Rx Instructions: at HS ursodiol 250 mg tablet 250 mg PO Q12H docusate sodium 100 mg capsule 100 mg PO DAILY magnesium oxide 400 mg magnesium tablet 400 mg PO DAILY acetaminophen 325 mg tablet 650 mg PO Q6H PRN (Reason: fever or pain) cholecalciferol (vitamin D3) [Weekly-D] 1,250 mcg (50,000 unit) capsule 1,250 mcg PO QWEEK Rx Instructions: ON WEDNESDAY pantoprazole [Protonix] 40 mg tablet,delayed release (DR/EC) 40 mg PO DAILY trazodone 50 mg tablet 50 mg PO .QHS mirtazapine [Remeron] 15 mg tablet 7.5 mg PO .QHS Print Language: Comoran Referrals: NAMAN CARBAJAL [Primary Care Provider] - 1 week
[2024-01-05] MEDS: 0.9 % SODIUM CHLORIDE 1,000 ML 1000 ML IV (14:45)
[2024-01-05 15:00] LABS: Hematocrit 25.7 % (36.0-48.0); Hemoglobin 8.3 g/dL (12.0-16.0); Mean Corpuscular HGB Conc 32.3 g/dL (29.9-35.2); Mean Corpuscular Hemoglobin 35.6 pg (26.7-34.0); Mean Corpuscular Volume 110.3 fL (81.0-99.0); Mean Platelet Volume 10.8 fL (9.5-13.5); Platelet Count 38 10^3/uL (150-450); Red Blood Count 2.33 10^6/uL (4.20-5.40); Red Cell Distribution Width 15.6 % (11.0-15.0); White Blood Count 1.9 10^3/uL (4.0-11.0)
[2024-01-05 15:08] LABS: pH VBG 7.421 (7.330-7.430)
[2024-01-05 15:10] LABS: PCO2 VBG 32.2 mmHg (40.0-52.0)
[2024-01-05 15:25] LABS: Lactate/Lactic Acid 1.8 mmol/L (0.4-2.0)
[2024-01-05 15:30] LABS: Eosinophils Absolute Manual 0.07 10^3/uL (0.00-0.70); Lymphocytes Absolute Manual 0.72 10^3/uL (1.20-3.80); Macrocytosis 1+; Monocytes Absolute Manual 0.03 10^3/uL (0.30-0.80); Segmented Neut Absolute Manual 1.06 10^3/uL (1.4-6.5)
[2024-01-05 15:37] LABS: INR 1.08; Prothrombin Time 11.4 sec (9.0-11.6)
[2024-01-05 15:40] LABS: Alanine Aminotransferase 23 U/L (14-59); Albumin Globulin Ratio 0.6; Albumin Level 2.8 g/dL (3.4-5.0); Alkaline Phosphatase 131 U/L (46-116); Anion Gap 11.1; Aspartate Amino Transferase 32 U/L (15-37); BUN Creatinine Ratio 21.1; Carbon Dioxide 23.4 mmol/L (21.0-32.0); Chloride 114 mmol/L (98-107); Estimated GFR (African America 53 (>=60); Estimated GFR (Non-African Ame 44 (>=60); Globulin 4.9 g/dL; Glucose 129 mg/dL (74-106); Potassium 4.5 mmol/L (3.5-5.1); Sodium 144 mmol/L (136-145); Thyroid Stimulating Hormone 1.647 uIU/mL (0.358-3.740); Total Protein 7.7 g/dL (6.4-8.2)
[2024-01-05 15:41] LABS: PROCALCITONIN 0.17 ng/mL (0.00-0.50)
[2024-01-05 15:43] LABS: Ammonia 188 umol/L (11-32)
[2024-01-05 15:59] LABS: Bilirubin Urine NEGATIVE (NEGATIVE); Blood Urine TRACE-I (NEGATIVE); Clarity Urine CLEAR (CLEAR); Color Urine YELLOW (YELLOW); Glucose Urine UA NEGATIVE (NEGATIVE); Ketones Urine NEGATIVE (NEGATIVE); Leukocyte Esterase Urine NEGATIVE (NEGATIVE); Nitrite Urine NEGATIVE (NEGATIVE); Protein Urine NEGATIVE (NEG/TRACE); Urobilinogen Urine 0.2 EU/dL (0.2-1.0); pH Urine 6.5 (5.0-9.0)
[2024-01-05 16:01] LABS: Urine Microscopic Indicated YES
[2024-01-05 16:24] LABS: Bacteria Urine MODERATE #/HPF (NONE SEEN); Mucus Urine MODERATE (NONE SEEN); RBC Urine 0-2 #/HPF (0-2); WBC Urine 0-2 #/HPF (NONE SEEN)
[2024-01-05 16:25] LABS: Cast Seen? NONE SEEN #/LPF (NONE SEEN); Crystals Seen? None Seen #/HPF (None Seen); Squamous Epithelial Cell Urine FEW #/LPF (NONE/RARE); Urine Culture Indicated YES
--- OUTSIDE RECORDS SUMMARY | 2024-01-05 17:32 | XMS_ITS ---
Patient Summarization (C-CDA 2.1 CCD) Created on: January 05, 2024 LANEY LARIOS : 1955 Sex: Undifferentiated Author Organization Sample organization Care Team Providers Care Senior Manager Quality Assurance Name Role Phone KEKE, MICHAEL BRYAN Unavailable Unavailable PEÑA, YOUNG MD Unavailable Unavailable KEKE, MICHAEL BRYAN Unavailable Unavailable PEÑA, YOUNG MD Unavailable Unavailable FANNING, CAESAR E Unavailable Unavailable FANNING, CAESAR E Unavailable Unavailable Peña, Young Mi Unavailable PEÑA, YOUNG MD Unavailable Unavailable NO, PHYSICIAN Unavailable Unavailable PEAÑ, YOUNG MD Unavailable Unavailable NO, PHYSICIAN Unavailable Unavailable PEÑA, YOUNG MD Unavailable Unavailable PEÑA, YOUNG MD Unavailable Unavailable PEÑA, YOUNG MD Unavailable Unavailable PEÑA, YOUNG MD Unavailable Unavailable PEÑA, YOUNG MD Unavailable Unavailable NYROMEL, YOANA BOBBY Unavailable Unavailable PEÑA, YOUNG MD Unavailable Unavailable KEKE, MICHAEL BRYAN Unavailable Unavailable KEKE, MICHAEL BRYAN Unavailable Unavailable PEÑA, YOUNG MD Unavailable Unavailable KEKE, MICHAEL BRYAN Unavailable Unavailable KEKE, MICHAEL BRYAN Unavailable Unavailable PEÑA, YOUNG MD Unavailable Unavailable KEKE, MICHAEL BRYAN Unavailable Unavailable REICHGILDA, YOANA P Unavailable Unavailable KEKE, MICHAEL BRYAN Unavailable Unavailable PEÑA, YOUNG MD Unavailable Unavailable PEÑA, YOUNG MD Unavailable Unavailable DEL CHRISTIANSON Unavailable Unavailable Peña, Young Mi Primary Care Provider [phone] SHAIKH SAAB Admitting Unavailable DR JAE VERA Consulting Unavailable SHAIKH SAAB Attending Unavailable DR RAMONA PANDEY Consulting Unavailable RUKHSANA ANDRADE Consulting Unavailable SPENCER CATES Consulting Unavailable SHAIKH SAAB Consulting Unavailable Tyler Solis Consulting Unavailable SELF, REFERRED Referring Unavailable SELF, REFERRED Primary Care Unavailable JULIANO LUCAS Attending Unavailable JULIANO LUCAS Admitting Unavailable SELF, REFERRED Referring Unavailable SELF, REFERRED Primary Care Unavailable DE Procedure Practitioner Unavailab JULIANO Hernandez Surgeon Unavailable JULIANO LUCAS Attending Unavailable JULIANO LUCAS Admitting Unavailable NAWAYLON SEXTON Attending Unavailable KAMILAH, ADE Referring Unavailable LAY, SHO Attending Unavailable LAY, SHO Attending Unavailable LAY, SHO Attending Unavailable LAY, SHO Attending Unavailable TAN, ADE Admitting Unavailable KAMILAH, ADE Attending Unavailable LAY, SHO Referring Unavailable HEMANT, WONG Attending Unavailable HEMANT, WONG Referring Unavailable LÓPEZ, ALBERTO Delacruz Primary Care Unavailable NAMAN CARBAJAL Referring Unavailable LÓPEZ, ALBERTO Delacruz Primary Care Unavailable HEMANT, WONG Referring Unavailable LÓPEZ, ALBERTO N Primary Care Unavailable LÓPEZ, ALBERTO N Referring Unavailable LÓPEZ, ALBERTO N Primary Care Unavailable HEMANT, WONG Attending Unavailable HEMANT, WONG Referring Unavailable LÓPEZ, ALBERTO N Primary Care Unavailable NAMAN CARBAJAL Referring Unavailable LÓPEZ, ALBERTO N Primary Care Unavailable HEMANT, WONG Attending Unavailable HEMANT, WONG Referring Unavailable LÓPEZ, ALBERTO N Primary Care Unavailable LAY, SHO Canseco Referring Unavailable LÓPEZ, ALBERTO N Primary Care Unavailable HEMANT, WONG Referring Unavailable LÓPEZ, ALBERTO N Primary Care Unavailable LÓPEZ, ALBERTO N Referring Unavailable LÓPEZ, ALBERTO N Primary Care Unavailable Encounters Encounter Date Encounter Type Care Provider Facility Start: 12-27-2023 End: 12-27-2023 ambulatory NAMAN CARBAJAL [facility] Start: 11-29-2023 End: 11-29-2023 ambulatory SHO MILLER [facility] Start: 11-25-2023 End: 11-25-2023 ambulatory [facility] Start: 10-05-2023 End: 10-11-2023 ambulatory ALBERTO Delacruz LÓPEZ [facility] Start: 10-04-2023 End: 10-04-2023 ambulatory [facility] Start: 09-29-2023 End: 09-29-2023 ambulatory NAMAN CARBAJAL [facility] Start: 09-28-2023 End: 09-29-2023 ambulatory ADE TAN [facility] Start: 08-31-2023 End: 08-31-2023 ambulatory ALBERTO Delacruz LÓPEZ [facility] Start: 08-30-2023 End: 08-30-2023 ambulatory [facility] Start: 08-27-2023 End: 08-27-2023 ambulatory [place] Ajith [facility] Start: 08-26-2023 End: 08-26-2023 ambulatory [facility] Start: 08-17-2023 End: 08-17-2023 ambulatory [facility] Start: 07-29-2023 End: 09-10-2023 ambulatory [facility] Start: 04-01-2023 End: 04-01-2023 ambulatory [facility] Start: 12-31-2022 End: 12-31-2022 ambulatory [facility] Start: 12-11-2022 End: 12-12-2022 [facility]: 09-02-2021 End: 09-03-2021 Evaluation and management of inpatient SHAIKH JEREMIAHNIKHIL Facility: Start: 06-26-2021 End: 06-27-2021 ambulatory REFERRED SELF Facility:[facility] Start: 03-24-2021 End: 03-25-2021 ambulatory REFERRED SELF Facility:[facility] Start: 09-11-2020 End: 09-11-2020 Orders Only Leticia Wright Work Phone: [facility] Start: 01-08-2018 End: 01-08-2018 Emergency department patient visit GHASSAN PASTRANA [facility] Start: 01-07-2018 End: 01-08-2018 Emergency department patient visit Del Tyler Meghan Work Phone: [facility] Start: 08-25-2017 End: 08-26-2017 Ambulatory MICHAEL ADAMS [facility] Start: 08-10-2017 End: 08-10-2017 Patient [facility]HAEL ADAMS [facility] Start: 08-04-2017 End: 08-04-2017 [facility] Start: 08-03-2017 End: 08-03-2017 Emergency department patient visit YOANA ROSALES WAROMEL [facility] Start: 07-29-2017 End: 07-30-2017 Patient encounter GHASSAN [facility] Start: 07-27-2017 End: 07-27-2017 Patient encounter GHASSAN [facility] Start: 07-02-2017 End: 07-02-2017 Patient encounter GHASSAN [facility] Start: 06-24-2017 End: 06-24-2017 Patient encounter GHASSAN [facility] Start: 02-04-2017 End: 02-05-2017 Ambulatory CAESAR VALENCIA [facility] Medical Equipment Procedure Code Equipment Code Equipment [...] Indicators Verified / No Expiration Dates Noted Immunizations Immunization Date Immunization Notes Care Provider Eva waddell 08-03-2017 tetanus toxoid, redu jason diphtheria toxoid, and acellular pertussis vaccine, adsorbed; Translations: [TDAP] Del Christianson [facility] Medications Current Medications Medication Drug Class(es) Dates [...] /ml injection (3 sources) Start: 01-07-2018 End: 06-30-2018 sodium chloride 0.9% (NS) Payers Date Payer Category Payer Medicaid [id number] 2016 Medicaid [employer] [facility] MEDICA[employer] [id number] 2016-Present [id number] 1959 Medicaid [id number] 1955 Unknown [id number] 1955 Unknown [id number] [id number] 1955 Unknown [id number] [id number] 1955 Unknown [id number] [id number] 1955 Unknown [id number] [id number] 1955 Unknown [id number] [id number] 1955 Unknown [id number] [id number] 1955 Unknown [id number] [id number] 1955 Unknown [id number] [id number] 1955 Unknown [id number] [id number] 1955 Unknown [id number] [id number] 1955 Unknown [id number] [id number] 1955 Unknown [id number] Plan of Treatment Date Care Activity Detail Author Start: 08-03-2027 [facility] Start[facility] 03-12-2020 Influenza vaccination given Se quential Influenza Vaccine (#1) [facility] Start: 03-12-2018 Influenza vaccination SEQUENTI AL INFLUENZA VACCINE (Season Ended) [facility] Start: 2016 Zoster vaccine hzv l adriana for subcutaneous use ZOSTER VACCINE [facility] Start: 2006 Administration of he rpes zoster vaccine Zoster Vaccines (1 of 2) [facility] Start: 2006 Screening for malign ant neoplasm of colon [facility] Start: 1972 COVID-19 Vaccine (1 of 2) COVID-19 V accine (1 of 2) [facility] Start: 1971 HIV screening HIV Screening [facility] Start: 1968 Adolescent depressio n screening assessment Depression Screening (PHQ9) [facility] Start: 1959 History and physical examination, annual for health maintenance Wellness Visit [facility] Start: 1955 Screening colonoscopy COLONOSCOPY [facility] Start: 1955 Screening for malign ant neoplasm of cervix PAP SMEAR [facility] Start: 1955 Screening mammography Mammogram [facility] End: 01-07-2018 Bacteria aerobode culture Urine Aerobic Culture Routine Once for 1 Occurrences starting 01/07/2018 until 01/07/2018 [facility] Bacteria aerobode culture Urine Aerobic Culture Routine 01/07/2018 11:13 PM EDT [facility] End: 01-07-2018 Bacteria culture Blood Culture Aerobic/Anaerobic Routine Once for 1 Occurrences starting 01/07/2018 until 01/07/2018 [facility] Bacteria culture [facility] Problems Active Problems Problem Classification Problem Date [...] esophagitis; Translations: [Esophageal varices without bleeding] Onset: 12-11-2022 Chronic Essential hypertension (1 source) Essential (primary) [...] 06-24-2017 Chronic Other aftercare (1 source) 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 therapy; Translations: [OTH PULP DRIER CURRENT DRUG THERAPY] Onset: 09-08-2021 Episodic Other liver diseases (2 sources) Hepatic failure, unspecified without coma; Translations: [Hepatic failure, unspecified without coma] Onset: 01-08-2018 Chronic Other liver diseases (4 sources) Unspecified cirrhosis of liver; Translations: [UNSPECIFIED [...] screening for lipoid disorders] Onset: 07-02-2017 Episodic Procedures Date Procedure Procedure Detail Performing Clinician Start: 11-25-2023 Follow-up visit Follow-up MARVIN Richard [place] Start: 03-24-2021 ANES UPR GI NDSC PX NOS REFERRED SELF Start: 03-24-2021 EGD DIAGNOSTIC BRUSH WASH JULIANO LUCAS Results Test Name Value Interpretation Reference Range Facility AMMONIAon 12-27-2023 Ammonia (P) [Moles/Vol] 157 umol/L High 11-35 [facility] Comment on above: Performed By: #### 1 [id number] #### [facility] ([id number]) [address] [place] [address] Documentationon 11-29-2023 Documentation [id number] Laney Larios 1955 F Date Provider Department Center 11/29/2023 SHO MARAVILLA [facility] Family History Problem Relation Age of Onset Colon cancer Neg Hx Family Status - Relation Status Age at Neg Hx Normal [facility] Telemedicineon 11-29-2023 Telemedicine [id number] Laney Larios 1955 F Date Provider Department Center 11/29/2023 [place]-SHO MILLER [facility] Family History Problem Relation Age of Onset Colon cancer Neg Hx Family Status - Relation Status Age at Neg Hx Level of Service:05668 DE OFFICE/OUTPT VISIT,PROCEDURE ONLY Reason for Visit and Comments: Cirrhosis [239] Normal [facility] CBC AND AUTO DIFFon 09-29-19 24 Eosinophils (Bld) [#/Vol] 0.1 10*3/uL Normal 0.0-0.4 [facility] Comment on above: Performed By: #### C BCA #### [facility] ([id number]) [address] [place] [address] 44864 Eosinophils/100 WBC (Bld) 3.0 % Normal [facility] Comment on above: Performed By: #### C BCA #### [facility] ([id number]) [address] [place] [address] 87403 Erythrocyte distribution width (RBC) [Ratio] 17.3 % High 11.5-15.0 [facility] Comment on above: Performed By: #### C BCA #### [facility] ([id number]) [address] [place] [address] 57119 Hematocrit (Bld) [Volume fraction] 24.5 % Low 35-47 [facility] Comment on above: Performed By: #### C BCA #### [facility] ([id number]) [address] [place] [address] 30385 Hemoglobin (Bld) [Mass/Vol] 8.4 g/dL Low 11.7-15.5 [facility] Comment on above: Performed By: #### C BCA #### [facility] ([id number]) [address] [place] [address] 58762 IMMATURE MONONUCLEAR 1.0 % Normal [facility] Comment on above: Performed By: #### C BCA #### [facility] ([id number]) [address] [place] [address] 78983 LYMPHOCYTE, ATYPICAL 5.0 % Normal [facility] Comment on above: Performed By: #### C BCA #### [facility] ([id number]) [address] [place] [address] 22056 Lymphocytes (Bld) [#/Vol] 0.4 10*3/uL Low 1.0-3.5 [facility] Comment on above: Performed By: #### C BCA #### [facility] ([id number]) [address] [place] [address] 96914 Lymphocytes/100 WBC (Bld) 18.0 % Normal [facility] Comment on above: Performed By: #### C BCA #### [facility] ([id number]) [address] [place] [address] [place] [address] MCH (RBC) [Entitic mass] 35.7 pg High 27-34 [facility] Comment on above: Performed By: #### C BCA #### [facility] ([id number]) [address] [place] [address] 19602 MCHC (RBC) [Mass/Vol] 34.5 g/dL Normal 32-36 [facility] Comment on above: Performed By: #### C BCA #### [facility] ([id number]) [address] [place] [address] 66020 MCV (RBC) [Entitic vol] 104 fL High 80-100 [facility] Comment on above: Performed By: #### C BCA #### [facility] ([id number]) [address] [place] [address] 55935 Monocytes (Bld) [#/Vol] 0.2 10*3/uL Normal 0-0.9 [facility] Comment on above: Performed By: #### C BCA #### [facility] ([id number]) [address] [place] [address] 56851 Monocytes/100 WBC (Bld) 9.0 % Normal [facility] Comment on above: Performed By: #### C BCA #### [facility] ([id number]) [address] [place] [address] 52640 Neutrophils (Bld) [#/Vol] 1.2 10*3/uL Low 1.5-6.6 [facility] Comment on above: Performed By: #### C BCA #### [facility] ([id number]) [address] [place] [address] 48102 Platelet mean volume (Bld) [Entitic vol] 9.7 fL Normal 7-12 [facility] Comment on above: Performed By: #### C BCA #### [facility] ([id number]) [address] [place] [address] 26148 Platelets (Bld) [#/Vol] 30 10*3/uL Low 150-450 [facility] Comment on above: Result Comment: PLAT ELETS REVIEWED Performed By: #### C BCA #### [facility] ([id number]) [address] [place] [address] 44678 RBC COUNT 2.37 X10E12/L Low 3.80-5.20 [facility] Comment on above: Performed By: #### C BCA #### [facility] ([id number]) [address] [place] [address] 13341 RBC morphology finding Nom (Bld) REVIEWED Normal [facility] Comment on above: Performed By: #### C BCA #### [facility] ([id number]) [address] [place] [address] 58120 SEG NEUTROPHIL 64.0 % Normal [facility] Comment on above: Performed By: #### C BCA #### [facility] ([id number]) [address] [place] [address] 84266 WBC (Bld) [#/Vol] 1.9 10*3/uL Low 4.0-11.0 [facility] Comment on above: Performed By: #### C BCA #### [facility] ([id number]) [address] [place] [address] 21674 CBC WITH AUTO DIFFERENTIALon 09-28-2023 Erythrocyte distribution width (RBC) [Ratio] 17.2 % High 11.5-15.0 [facility] Comment on above: Performed By: #### L [id number] #### [facility] (BEAK[facility]) [address] [place] [address] ERYTHROCYTE MEAN CORPUSCULAR HEMOGLOBIN CONCENTRATION (G/DL) BY AUTOMATED 34.0 g/dL Normal 32.0-35.0 [facility] Comment on above: Performed By: #### L [id number] #### [facility] ([facility]) [address] [place] [address] Hematocrit (Bld) [Volume fraction] 25.6 % Low 36.0-48.0 [facility] Comment on above: Performed By: #### L [id number] #### [facility] ([facility]) [address] [place] [address] Hemoglobin (Bld) [Mass/Vol] 8.7 g/dL Low 12.0-15.0 [facility] Comment on above: Performed By: #### L [id number] #### [facility] ([facility]) [address] [place] [address] IMMATURE PLATELET FRACTION % 3.5 % Normal 0.8-6.3 [facility] Comment on above: Performed By: #### L [id number] #### [facility] ([facility]) [address] [place] [address] MCH (RBC) [Entitic mass] 36.0 pg High 27.0-33.0 [facility] Comment on above: Performed By: #### L [id number] #### [facility] ([facility]) [address] [place] [address] MCV (RBC) [Entitic vol] 105.8 fL High 82.0-98.0 [facility] Comment on above: Performed By: #### L [id number] #### [facility] ([facility]) [address] [place] [address] NRBC (PER 100 WBCS) BY AUTOMATED COUNT 0.0 % Normal 0 [facility] Comment on above: Performed By: #### L [id number] #### [facility] ([facility]) [address] [place] [address] PLATELETS (10*3/UL) IN BLOOD AUTOMATED COUNT 44 10*3/uL Low 150-400 [facility] Comment on above: Performed By: #### L [id number] #### [facility] ([facility]) [address] [place] [address] RBC (Bld) [#/Vol] 2.42 10*6/uL Low 3.80-5.00 [facility] Comment on above: Performed By: #### L [id number] #### [facility] ([facility]) [address] [place] [address] WBC (Bld) [#/Vol] 1.79 10*3/uL Low 4.00-10.60 [facility] Comment on above: Performed By: #### L [id number] #### [facility] ([facility]) [address] [place] [address] MANUAL DIFFERENTIALon 2023 ANISOCYTOSIS PRESENCE IN BLOOD BY LIGHT MICROSCOPY Moderate Normal [facility] Comment on above: Performed By: #### L [id number] ####[facility] ([facility])[address] [place] [address] BASOPHILS (10*3/UL) IN BLOOD BY CALCULATION 0.00 10*3/uL Normal 0.00-0.20 [facility] Comment on above: Performed By: #### L [id number] ####[facility] ([facility])[address] [place] [address] BASOPHILS/100 LEUKOCYTES IN BLOOD BY AUTOMATED COUNT 0.0 % Normal 0.0-1.0 [facility] Comment on above: Performed By: #### L [id number] ####[facility] ([facility])[address] [place] [address] EOSINOPHILS (10*3/UL) IN BLOOD BY CALCULATION 0.07 10*3/uL Normal 0.00-0.50 [facility] Comment on above: Performed By: #### L [id number] ####[facility] ([facility])[address] [place] [address] EOSINOPHILS/100 LEUKOCYTES IN BLOOD BY AUTOMATED COUNT 4.0 % Normal 0.0-6.0 [facility] Comment on above: Performed By: #### L [id number] ####[facility] ([facility])[address] [place] [address] IMMATURE GRANULOCYTES (10*3/UL) IN BLOOD BY CALCULATION 0.00 10*3/uL Normal 0.00-0.20 [facility] Comment on above: Performed By: #### L [id number] ####[facility] ([facility])[address] [place] [address] IMMATURE GRANULOCYTES/100 LEUKOCYTES IN BLOOD BY AUTOMATED COUNT 0.0 % Normal 0.0-1.0 [facility] Comment on above: Performed By: #### L [id number] ####[facility] ([facility])[address] [place] [address] LYMPHOCYTES (10*3/UL) IN BLOOD BY CALCULATION 0.54 10*3/uL Low 1.20-4.00 [facility] Comment on above: Performed By: #### L [id number] ####[facility] ([facility])[address] [place] [address] LYMPHOCYTES/100 LEUKOCYTES IN BLOOD BY AUTOMATED COUNT 30.2 % Normal 20.0-45.0 [facility] Comment on above: Performed By: #### L [id number] ####[facility] ([facility])[address] [place] [address] MACROCYTES (PRESENCE) IN BLOOD BY LIGHT MICROSCOPY Slight Normal [facility] Comment on above: Performed By: #### L [id number] ####[facility] ([facility])[address] [place] [address] MONOCYTES (10*3/UL) IN BLOOD BY CALCUATION 0.12 10*3/uL Normal 0.10-1.00 [facility] Comment on above: Performed By: #### L [id number] ####[facility] ([facility])[address] [place] [address] MONOCYTES/100 LEUKOCYTES IN BLOOD BY AUTOMATED COUNT 6.7 % Normal 5.0-12.0 [facility] Comment on above: Performed By: #### L [id number] ####[facility] ([facility])[address] [place] [address] NEUTROPHILS (10*3/UL) IN BLOOD BY CALCULATION 1.1 10*3/uL Low 1.6-7.6 [facility] Comment on above: Performed By: #### L [id number] ####[facility] ([facility]ER)[address] [place] [address] NEUTROPHILS/100 LEUKOCYTES IN BLOOD BY AUTOMATED COUNT 59.1 % Normal 40.0-72.0 [facility] Comment on above: Performed By: #### L [id number] ####[facility] ([facility])[address] [place] [address] PLASMA CELLS/100 LEUKOCYTES IN BLOOD 0 % Normal 0 [facility] Comment on above: Performed By: #### L [id number] ####[facility] ([facility])[address] [facility] [place] [address] PLATELETS GIANT PRESENCE IN BLOOD BY LIGHT MICROSCOPY Present Normal [facility] Comment on above: Performed By: #### L [id number] ####[facility] ([facility])[address] [place] [address] POIKILOCYTOSIS (PRESENCE) IN BLOOD BY LIGHT MICROSCOPY Slight Normal [facility] Comment on above: Performed By: #### L [id number] ####[facility] ([facility])[address] [place] [address] POLYCHROMASIA IN BLOOD BY LIGHT MICROSCOPY Slight Normal [facility] Comment on above: Performed By: #### L [id number] ####[facility] ([facility])[address] [place] [address] VARIANT LYMPHOCYTES (10*3/UL) IN BLOOD BY CALCULATION 0.00 10*3/uL Normal 0.00 [facility] Comment on above: Performed By: #### L [id number] ####[facility] ([facility])[address] [facility] [place] [address] VARIANT LYMPHOCYTES/100 LEUKOCYTES IN BLOOD CELLAVISION 0.0 % Normal 0.0-0.0 [facility] Comment on above: Performed By: #### L [id number] ####[facility] ([facility])[address] [place] [place] [address] NURSNOTEon 09-28-2023 ANTONIO Spoke with transport ation who will be taking pt back to facility and she is booked up until 3:00. The long-term nurse director is coming to picking crew supervisor pt and eta is 1 hour from now. Normal [facility] NURSNOTE correction Karis harvey, picked up pt to take back to facility. Normal [facility] Orders Onlyon 09-28-2023 Orders Only [id number] Laney Larios 1955 F Date Provider Department Center 09/28/20232030[facility] [place] [place] Family History Problem Relation Age of Onset Colon cancer Neg Hx Family Status - Relation Status Age at Neg Hx Normal [facility] POCT GLUCOSE METER UNSOLICIT ED RESULTSon 09-28-2023 Glucose [Mass/Vol] 129 mg/dL High 70-105 [facility] Comment on above: Order Comment: Waive d Testing in the ED is performed under the ED CLIA certificate #[id number]. Result Comment: pbar retcorson Performed By: #### L [id number] ####[facility] ([place]ase[place])[address] [place] [address] PROTIME-INRon 09-28-2023 INR IN PPP BY COAGULATION ASSAY 1.13 High 0.90-1.10 [facility] Comment on above: Result Comment: ACCC [...] 1995;108:[id number]. Performed By: #### L [id number] #### [facility] [employer]) [address] [place] [address] PROTHROMBIN TIME (PT) IN PPP BY COAGULATION ASSAY 14.5 Seconds Normal 12.3-14.8 [facility] Comment on above: Performed By: #### L [id number] #### [facility] [employer] [address] [place] [address] Orders Onlyon 09-22-2023 Orders Only [id number] Laney Larios 1955 F Date Provider Department Center 09/22/2023 [facility] Family History Problem Relation Age of Onset Colon cancer Neg Hx Family Status - Relation Status Age at Neg Hx Normal [facility] Prep for Procedureon 024 Prep for Procedure [id number] Laney Larios 1955 F Date Provider Department Center 09/21/2023 SAMEERA VARELA [facility] Family History Problem Relation Age of Onset Colon cancer Neg Hx Family Status - Relation Status Age at Neg Hx Normal [facility] MR MRCP WITH MRI ABD WO [...] Diane MD on 08/30/2023 9:42 AM Normal [facility] Office Visiton 08-17-2023 Follow-up visit [id number] Laney Larios 1955 Date Provider Department Center 08/17/2023 SHO MARAVILLA [facility] Family History Problem Relation Age of Onset Colon cancer Neg Hx Family Status - Relation Status Age at Neg Hx Level of Service:10555 DE OFFICE/OUTPATIENT ESTABLISHED MOD MDM 30 MIN Normal [facility] Office Visiton 04-01-2023 Follow-up visit [id number] Laney Larios 1955 Provider Department Center 04/01/2023 SHO MARAVILLA [facility] Family History Problem Relation Age of Onset Colon cancer Neg Hx Family Status - Relation Status Age at Neg Hx Level of Service:89639 DE OFFICE/OUTPATIENT ESTABLISHED MOD MDM 30-39 MIN Reason for Visit and Comments: Anemia [339501] autoummune Hepatitis [Other] Cirrhosis [239] Normal [facility] Office [facility] 12-31-2022 Follow-up visit [id number] Laney Larios 1955 Provider Department Center 12/31/2022 SHO MARAVILLA [facility] Family History Problem Relation Age of Onset Colon cancer Neg Hx Family Status - Relation Status Age at Neg Hx Level of Service:93154 DE OFFICE/OUTPATIENT ESTABLISHED HIGH MDM 40-54 MIN Reason for Visit and Comments: Follow-up [735498] - Pt here for follow up to labs and US. Normal [facility] HISTOLOGY - TISSUE EXAMon LAB AP CASE REPORT Normal [facility] Comment on above: Result Comment: Surg ical Pathology Case: [id number] Authorizing Provider: Waylon Broussard MD Collected: 12/11/2022 1105 Ordering Location: Derik Chisholm [facility] Received: 12/11/2022 1226 [facility] Pathologist: Neetu Fields MD Specimen: Small Intestine, Duodenum, duodenal lesion EMR r/o adenoma Performed By: #### L [id number] ####[facility] (BEAKER)[address] [facility] [place] [address] LAB AP CLINICAL INFORMATION Order Diagnoses [facility] Comment on above: Result Comment: 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 [...] remaining sequential sections Performed By: #### L [id number] ####[facility] ([facility])[address] [facility] [place] [address] LAB AP MICROSCOPIC DESCRIPTION Microscopic examination performed. [facility] Comment on above: Performed By: #### L [id number] ####[facility] ([facility])[address] [facility] [place] [address] LAB AP REPORT FINAL DIAGNOSIS NARRATIVE [facility] Comment on above: Result Comment: Duod enum, endoscopic mucosal resection: - Duodenal mucosa with focal gastric foveolar metaplasia. - No malignancy or dysplasia identified Performed By: #### L [id number] ####[facility] ([facility])[address] [facility] [place] [address] HPon 12-11-2022 HP History Of Present I [...] MAC Attending Physician: Dr. Ade Tan MD Continuous Improvement Manager: Dr. Jorge Coelho MD Procedure Details: Informed consent was [...] assess th (more content not included)... Normal [facility] POCT GLUCOSE METER UNSOLICIT ED RESULTSon 12-11-2022 Glucose [Mass/Vol] 123 mg/dL High 70-105 [facility] Comment on above: Result Comment: [place] Performed By: #### L [id number] #### [facility] ([facility]) [address] [place] [address] CULTURE URINEon 09-04-2021 CULTURE URINE Isolate 1 [...] F Trimethoprim/Sulfamethoxazol e <=20 S F Normal [facility] Comment on above: Performed By: #### C BC #### [facility] [address] [place] [address] Dr. Ronald Wong AMMONIAon 09-03-2021 Ammonia (P) [Moles/Vol] 28 umol/L Normal 10-30 [facility] Comment on above: Performed By: #### A MM #### [facility] [address] [place] [address] Dr. Ronald Wong CBC AUTO DIFFon 09-03-2021 BASO # 0.0 103/ul Normal 0.0-0.1 [facility] Comment on above: Performed By: #### C BC #### [facility] [address] [place] [address] Dr. Ronald Wong Basophils/100 WBC (Bld) 0.6 % Normal 0.2-2.0 [facility] Comment on above: Performed By: #### C BC #### [facility] [address] [place] [address] Dr. Ronald Wong EO # 0.1 103/ul Normal 0.0-0.7 [facility] Comment on above: Performed By: #### C BC #### [facility] [address] [place] [address] Dr. Ronald Wong Eosinophils/100 WBC (Bld) 3.3 % Normal 0.9-7.0 [facility] Comment on above: Performed By: #### C BC #### [facility] [address] [place] [address] Dr. Ronald Wong Erythrocyte distribution width (RBC) [Ratio] 15.2 % Critically high 11.0-15.0 [facility] Comment on above: Performed By: #### C BC #### [facility] [address] [place] [address] Dr. Ronald Wong Hematocrit (Bld) [Volume fraction] 25.2 % Critically low 36.0-48.0 [facility] Comment on above: Performed By: #### C BC #### [facility] [address] [place] [address] Dr. Ronald Wong Hemoglobin (Bld) [Mass/Vol] 8.4 g/dL Critically low 12.0-16.0 [facility] Comment on above: Performed By: #### C BC #### [facility] [address] [place] [address] Dr. Ronald Wong IG # 0.00 10e3/ul Normal 0.00-0.03 [facility] Comment on above: Performed By: #### C BC #### [facility] [address] [place] [address] Dr. Ronald Wong IG % 0.0 % Normal 0.0-0.5 [facility] Comment on above: Performed By: #### C BC #### [facility] [address] [place] [address] Dr. Ronald Wong LYMPH # 0.7 103/ul Critically low 1.2-3.8 [facility] Comment on above: Performed By: #### C BC #### [facility] [address] [place] [address] Dr. Ronald Wong Lymphocytes/100 WBC (Bld) 38.7 % Normal 20.5-60.0 [facility] Comment on above: Performed By: #### C BC #### [facility] [address] [place] [address] Dr. Ronald Wong MANUAL DIFF REQ NO Normal [facility] Comment on above: Performed By: #### C BC #### [facility] [address] [place] [address] Dr. Ronald Wong MCH (RBC) [Entitic mass] 38.5 pg Critically high 26.7-34.0 [facility] Comment on above: Performed By: #### C BC #### [facility] [address] [place] [address] Dr. Ronald Wong MCHC (RBC) [Mass/Vol] 33.3 g/dL Normal 29.9-35.2 [facility] Comment on above: Performed By: #### C BC #### [facility] [address] [place] [address] Dr. Ronald Wong MCV (RBC) [Entitic vol] 115.6 fL Critically high 81.0-99.0 [facility] Comment on above: Performed By: #### C BC #### [facility] [address] [place] [address] Dr. Ronald Wong MONO # 0.2 103/ul Critically low 0.3-0.8 [facility] Comment on above: Performed By: #### C BC #### [facility] [address] [place] [address] Dr. Ronald Wong Monocytes/100 WBC (Bld) 11.0 % Normal 1.7-12.0 [facility] Comment on above: Performed By: #### C BC #### [facility] [address] [place] [address] Dr. Ronald Wong NEUT # 0.8 103/ul Critically low 1.4-6.5 [facility] Comment on above: Performed By: #### C BC #### [facility] [address] [place] [address] Dr. Ronald Wong Neutrophils/100 WBC (Bld) 46.4 % Normal 43.0-75.0 [facility] Comment on above: Performed By: #### C BC #### [facility] [address] [place] [address] Dr. Ronald Wong Platelet mean volume (Bld) [Entitic vol] 11.6 fL Normal 9.5-13.5 [facility] Comment on above: Performed By: #### C BC #### [facility] [address] [place] [address] Dr. Ronald Wong PLT 64 103/ul Critically low 150-450 [facility] Comment on above: Performed By: #### C BC #### [facility] [address] [place] [address] Dr. Ronald Wong RBC 2.18 106/ul Critically low 4.20-5.40 [facility] Comment on above: Performed By: #### C BC #### [facility] [address] [place] [address] Dr. Ronald Wong WBC 1.8 103/ul Critically low 4.0-11.0 [facility] Comment on above: Performed By: #### C BC #### [facility] [address] [place] [address] Dr. Ronald Wong PROF 14(COMP METB)on 022 Albumin [Mass/Vol] 2.9 g/dL Critically low 3.5-5.0 [facility] Comment on above: Performed By: #### C JIMAN #### [facility] [address] [place] [address] Dr. Ronald Wong Albumin/Globulin [Mass ratio] 0.8 {ratio} Normal [facility] Comment on above: Performed By: #### C BCMAN #### [facility] [address] [place] [address] Dr. Ronald Wong ALP [Catalytic activity/Vol] 89 U/L Normal 38-126 [facility] Comment on above: Performed By: #### C BCMAN #### [facility] [address] [place] [address] Dr. Ronald Wong ALT [Catalytic activity/Vol] 13 U/L Normal 9-52 [facility] Comment on above: Performed By: #### C BCMAN #### [facility] [address] [address] [address] oRnald Wong Anion gap [Moles/Vol] 9.5 mmol/L Normal [facility] Comment on above: Performed By: #### C BCMAN #### [facility] [address] [address] [address] Ronald Wong AST [Catalytic activity/Vol] 20 U/L Normal 14-36 [facility] Comment on above: Performed By: #### C BCSISSY #### [facility] [address] [address] [address] Ronald Wnog Bilirubin [Mass/Vol] 1.0 mg/dL Normal 0.2-1.3 [facility] Comment on above: Performed By: #### C JIL #### [facility] [address] [address] [address] Ronald Wong Calcium [Mass/Vol] 9.1 mg/dL Normal 8.4-10.2 [facility] Comment on above: Performed By: #### C BCSISSY #### [facility] [address] [address] [address] Ronald Wong Chloride [Moles/Vol] 113 mmol/L Critically high 98-107 [facility] Comment on above: Performed By: #### C BCSISSY #### [facility] [address] [address] [address] Ronald Wong CO2 [Moles/Vol] 28.1 mmol/L Normal 22.0-30.0 [facility] Comment on above: Performed By: #### C BCSISSY #### [facility] [address] [address] [address] Ronald Wong Creatinine [Mass/Vol] 1.15 mg/dL Critically high 0.52-1.04 [facility] Comment on above: Performed By: #### C BCSISSY #### [facility] [address] [address] [address] Ronald Wong EGFR-AF SLOVAK 57 mL/min/1.73m2 Critically low >=60 [facility] Comment on above: Performed By: #### C BCMAN #### [facility] [address] [address] [address] Ronald Wong EGFR-NON AF [place]OVAK 47 mL/min/1.73m2 Critically low >=60 [facility] Comment on above: Performed By: #### C BCMAN #### [facility] [address] [address] [address] Ronald Wong Globulin (S) [Mass/Vol] 3.6 g/dL Normal [facility] Comment on above: Performed By: #### C BCMAN #### [facility] [address] [address] [address] Ronald Wong Glucose [Mass/Vol] 92 mg/dL Normal 74-106 [facility] Comment on above: Performed By: #### C JIL #### [facility] [address] [address] [address] Ronald Wong Potassium [Moles/Vol] 3.6 mmol/L Normal 3.4-5.0 [facility] Comment on above: Performed By: #### C BCSISSY #### [facility] [address] [address] [address] Ronald Wong Protein [Mass/Vol] 6.5 g/dL Normal 6.1-8.2 [facility] Comment on above: Performed By: #### C BCSISSY #### [facility] [address] [address] [address] Ronald Wong Sodium [Moles/Vol] 147 mmol/L Critically high 137-145 [facility] Comment on above: Performed By: #### C BCSISSY #### [facility] [address] [address] [address] Ronald Wong Urea nitrogen [Mass/Vol] 16.0 mg/dL Normal 7.0-17.0 [facility] Comment on above: Performed By: #### C BCSISSY #### [facility] [address] [address] [address] Ronald Wong Urea nitrogen/Creatinin e [Mass ratio] 13.9 mg/mg Normal [facility] Comment on above: Performed By: #### C BCMAN #### [facility] [address] [place] [address] Dr. Ronald Wong AMMONIAon 09-02-2021 Ammonia (P) [Moles/Vol] 71 umol/L Critically high 10-30 [facility] Comment on above: Result Comment: test repeated Performed By: #### C BC #### [facility] [address] [place] [address] Dr. Ronald Wong CBC AUTO DIFFon 09-02-2021 BASO # 0.0 103/ul Normal 0.0-0.1 [facility] Comment on above: Performed By: #### C BC #### [facility] [address] [place] [address] Dr. Ronald Wong Basophils/100 WBC (Bld) 0.0 % Critically low 0.2-2.0 [facility] Comment on above: Performed By: #### C BC #### [facility] [address] [place] [address] Dr. Ronald Wong EO # 0.0 103/ul Normal 0.0-0.7 [facility] Comment on above: Performed By: #### C BC #### [facility] [address] [place] [address] Dr. Ronald Wong Eosinophils/100 WBC (Bld) 3.1 % Normal 0.9-7.0 [facility] Comment on above: Performed By: #### C BC #### [facility] [address] [place] [address] Dr. Ronald Wong Erythrocyte distribution width (RBC) [Ratio] 15.1 % Critically high 11.0-15.0 [facility] Comment on above: Performed By: #### C BC #### [facility] [address] [place] [address] Dr. Ronald Wong Hematocrit (Bld) [Volume fraction] 24.5 % Critically low 36.0-48.0 [facility] Comment on above: Performed By: #### C BC #### [facility] [address] [place] [address] Dr. Ronald Wong Hemoglobin (Bld) [Mass/Vol] 8.0 g/dL Critically low 12.0-16.0 [facility] Comment on above: Performed By: #### C BC #### [facility] [address] [place] [address] Dr. Ronald Wong IG # 0.00 10e3/ul Normal 0.00-0.03 [facility] Comment on above: Performed By: #### C BC #### [facility] [address] [place] [address] Dr. Ronald Wong IG % 0.0 % Normal 0.0-0.5 [facility] Comment on above: Performed By: #### C BC #### [facility] [address] [place] [address] Dr. Ronald Wong LYMPH # 0.6 103/ul Critically low 1.2-3.8 [facility] Comment on above: Performed By: #### C BC #### [facility] [address] [place] [address] Dr. Ronald Wong Lymphocytes/100 WBC (Bld) 47.3 % Normal 20.5-60.0 [facility] Comment on above: Performed By: #### C BC #### [facility] [address] [place] [address] Dr. Ronald Wong MANUAL DIFF REQ NO Normal [facility] Comment on above: Performed By: #### C BC #### [facility] [address] [place] [address] Dr. Ronald Wong MCH (RBC) [Entitic mass] 38.6 pg Critically high 26.7-34.0 [facility] Comment on above: Performed By: #### C BC #### [facility] [address] [place] [address] Dr. Ronald Wong MCHC (RBC) [Mass/Vol] 32.7 g/dL Normal 29.9-35.2 [facility] Comment on above: Performed By: #### C BC #### [facility] [address] [place] [address] Dr. Ronald Wong MCV (RBC) [Entitic vol] 118.4 fL Critically high 81.0-99.0 [facility] Comment on above: Performed By: #### C BC #### [facility] [address] [address] [address] Ronald Wong MONO # 0.2 103/ul Critically low 0.3-0.8 [facility] Comment on above: Performed By: #### C BC #### [facility] [address] [address] [address] Ronald Wong Monocytes/100 WBC (Bld) 12.4 % Critically high 1.7-12.0 [facility] Comment on above: Performed By: #### C BC #### [facility] [address] [place] [address] Dr. Ronald Wong NEUT # 0.5 103/ul Critically low 1.4-6.5 [facility] Comment on above: Performed By: #### C BC #### [facility] [address] [place] [address] Dr. Ronald Wong Neutrophils/100 WBC (Bld) 37.2 % Critically low 43.0-75.0 [facility] Comment on above: Performed By: #### C BC #### [facility] [address] [place] [address] Dr. Ronald Wong Platelet mean volume (Bld) [Entitic vol] 10.3 fL Normal 9.5-13.5 [facility] Comment on above: Performed By: #### C BC #### [facility] [address] [place] [address] Dr. Ronald Wong PLT 38 103/ul Critically low 150-450 [facility] Comment on above: Performed By: #### C BC #### [facility] [address] [place] [address] Dr. Ronald Wong RBC 2.07 106/ul Critically low 4.20-5.40 [facility] Comment on above: Performed By: #### C BC #### [facility] [address] [place] [address] Dr. Ronadl Wong WBC 1.5 103/ul Critically low 4.0-11.0 [facility] Comment on above: Performed By: #### C BC #### [facility] [address] [place] [address] Dr. Ronald Wong CULTURE BLOODon 09-02-2021 Microscopic examination of blood, culture Culture Observations: No growth at 5 days. Normal [facility] Comment on above: Performed By: #### C BC #### [facility] [address] [place] [address] Dr. Ronald Wong PROF 14(COMP METB)on 022 Albumin [Mass/Vol] 2.8 g/dL Critically low 3.5-5.0 [facility] Comment on above: Performed By: #### C MP #### [facility] [address] [place] [address] Dr. Ronald Wong Albumin/Globulin [Mass ratio] 0.8 {ratio} Normal [facility] Comment on above: Performed By: #### C MP #### [facility] [address] [place] [address] Dr. Ronald Wong ALP [Catalytic activity/Vol] 88 U/L Normal 38-126 [facility] Comment on above: Performed By: #### C MP #### [facility] [address] [place] [address] Dr. Ronald Wong ALT [Catalytic activity/Vol] 10 U/L Normal 9-52 [facility] Comment on above: Performed By: #### C MP #### [facility] [address] [place] [address] Dr. Ronald Wong Anion gap [Moles/Vol] 6.7 mmol/L Normal [facility] Comment on above: Performed By: #### C MP #### [facility] [address] [place] [address] Dr. Ronald Wong AST [Catalytic activity/Vol] 20 U/L Normal 14-36 [facility] Comment on above: Performed By: #### C MP #### [facility] [address] [place] [address] Dr. Ronald Wong Bilirubin [Mass/Vol] 1.3 mg/dL Normal 0.2-1.3 [facility] Comment on above: Performed By: #### C MP #### [facility] [address] [place] [address] Dr. Ronald Wong Calcium [Mass/Vol] 8.7 mg/dL Normal 8.4-10.2 [facility] Comment on above: Performed By: #### C MP #### [facility] [address] [address] Dr. Ronald Wong Chloride [Moles/Vol] 111 mmol/L Critically high 98-107 [facility] Comment on above: Performed By: #### C MP #### [facility] [address] [place] [address] Dr. Ronald Wong CO2 [Moles/Vol] 30.5 mmol/L Critically high 22.0-30.0 [facility] Comment on above: Performed By: #### C MP #### [facility] [address] [place] [address] Dr. Ronald Wong Creatinine [Mass/Vol] 1.03 mg/dL Normal 0.52-1.04 [facility] Comment on above: Performed By: #### C MP #### [facility] [address] [place] [address] Dr. Ronald Wong EGFR-AF SLOVAK >60 Normal >=60 [facility] Comment on above: Performed By: #### C MP #### [facility] [address] [place] [address] Dr. Ronald Wong EGFR-NON AF SLOVAK 54 mL/min/1.73m2 Critically low >=60 [facility] Comment on above: Performed By: #### C MP #### [facility] [address] [address] [address] Ronald Wong Globulin (S) [Mass/Vol] 3.7 g/dL Normal [facility] Comment on above: Performed By: #### C MP #### [facility] [address] [place] [address] Dr. Ronald Wong Glucose [Mass/Vol] 103 mg/dL Normal 74-106 [facility] Comment on above: Performed By: #### C MP #### [facility] [address] [address] [address] Ronald Wong Potassium [Moles/Vol] 4.2 mmol/L Normal 3.4-5.0 [facility] Comment on above: Performed By: #### C MP #### [facility] [address] [address] [address] Ronald Wong Protein [Mass/Vol] 6.5 g/dL Normal 6.1-8.2 [facility] Comment on above: Performed By: #### C MP #### [facility] [address] [address] [address] Ronald Wong Sodium [Moles/Vol] 144 mmol/L Normal 137-145 [facility] Comment on above: Performed By: #### C MP #### [facility] [address] [address] [address] Ronald Wong Urea nitrogen [Mass/Vol] 17.0 mg/dL Normal 7.0-17.0 [facility] Comment on above: Performed By: #### C MP #### [facility] [address] [address] [address] Ronald Wong Urea nitrogen/Creatinin e [Mass ratio] 16.5 mg/mg Normal [facility] Comment on above: Performed By: #### C MP #### [facility] [address] [address] [address] Ronald Wong PROTIMEon 09-02-2021 INR Coag (PPP) [Relative time] 1.06 {INR} Normal [facility] Comment on above: Performed By: #### P TT, PT #### [facility] [address] [address] [address] Ronald Wong INR GUIDELINES SEE BELOW Normal [facility] Comment on above: Result Comment: HELADIO RED INR: 2.0 - 3.0 CONDITIONS NOT LISTED BELOW 2.5 - 3.5 FOR PROSTHETIC HEART VALVE REPLACEMENT 2.5 - 3.5 RECURRENT THROMBOSIS Performed By: #### P TT, PT #### [facility] [address] [address] [address] Ronald Wong PT Coag (PPP) [Time] 11.4 s Normal 9.0-11.6 [facility] Comment on above: Performed By: #### P TT, PT #### [facility] [address] [address] [address] Ronald Wong PTTon 09-02-2021 aPTT Coag (Bld) [Time] 24.3 s Normal 22.3-36.2 [facility] Comment on above: Performed By: #### P TT, PT #### [facility] [address] [address] [address] Ronald Wong US SINGLE QUAD RT [...] JAE VERA Date: 2021-09-02 12:20 Normal [facility] AMMONIAon 09-01-2021 Ammonia (P) [Moles/Vol] 107 umol/L Critically high 10-30 [facility] Comment on above: Result Comment: test repeated Performed By: #### A MM #### [facility] [address] [address] [address] Ronald Wong CARDIAC JACKIE ADMITon 022 CK [Catalytic activity/Vol] 35 U/L Normal 30-135 [facility] Comment on above: Performed By: #### C MADM #### [facility] [address] [address] [address] Ronald Wong CK.MB [Mass/Vol] 0.57 ng/mL Normal <=2.37 [facility] Comment on above: Performed By: #### C MADM #### [facility] [address] [address] [address] Ronald Wong HSTROP 5.7 pg/mL Normal 4.0-35.5 [facility] Comment on above: Result Comment: CUT- OFF POINTS HAVE BEEN ESTABLISHED BASED ON THE FOURTH UNIVERSAL DEFINITIONS OF MYOCARDIAL INFARCTION. THE UPPER REFERENCE LIMIT (URL) OF TROPONIN, DEFINED THE 99TH PERCENTILE OF cTnI DISTRIBUTION IN A REFERENCE POPULATION, HAS BEEN CONFIRMED THE DECISION THRESHOLD FOR MD DIAGNOSIS. Performed By: #### C MADM #### [facility] [address] [place] [address] Dr. Ronald Wong TAMI 35.0 ng/mL Normal <=61.5 [facility] Comment on above: Performed By: #### C SEPIDEHM #### [facility] [address] [place] [address] Dr. Ronald Wong CBC W MANUAL DIFFon 09-01-19 22 ANISOCYTOSIS 1+ Normal [facility] Comment on above: Performed By: #### C JIL #### [facility] [address] [place] [address] Dr. Ronald Wong ATYPICAL LYMPH # Normal [facility] Comment on above: Performed By: #### C JIL #### [facility] [address] [place] [address] Dr. Ronald Wong ATYPICAL LYMPH % Normal [facility] Comment on above: Performed By: #### C JIL #### [facility] [address] [place] [address] Dr. Ronald Wong BAND # 0.0 103/ul Normal 0.0-0.3 [facility] Comment on above: Performed By: #### C JIMAN #### [facility] [address] [place] [address] Dr. Ronald Wong BAND % 2 % Normal 0-5 [facility] Comment on above: Performed By: #### C BCSISSY #### [facility] [address] [place] [address] Dr. Ronald Wong BASOM # 0.00 103/ul Normal 0.00-0.10 [facility] Comment on above: Performed By: #### C BCSISSY #### [facility] [address] [place] [address] Dr. Ronald Wong BASOM % 0.0 % Critically low 0.2-2.0 [facility] Comment on above: Performed By: #### C BCSISSY #### [facility] [address] [place] [address] Dr. Ronald Wong BLAST # Normal [facility] Comment on above: Performed By: #### C JIL #### [facility] [address] [place] [address] Dr. Ronald Wong BLAST % Normal [facility] Comment on above: Performed By: #### C JIL #### [facility] [address] [place] [address] Dr. Ronald Wong CORRECTED WBC Normal 4.0-11.0 [facility] Comment on above: Performed By: #### C JIL #### [facility] [address] [place] [address] Dr. Ronald Wong EOS # 0.02 103/ul Normal 0.00-0.70 [facility] Comment on above: Performed By: #### C JIL #### [facility] [address] [place] [address] Dr. Ronald Wong EOS% 1.0 % Normal 0.9-7.0 [facility] Comment on above: Performed By: #### C JIL #### [facility] [address] [place] [address] Dr. Ronald Wong HCT 27.7 % Critically low 36.0-48.0 [facility] Comment on above: Performed By: #### C JIL #### [facility] [address] [place] [address] Dr. Ronald Wong HGB 9.2 g/dl Critically low 12.0-16.0 [facility] Comment on above: Performed By: #### C BCMAN #### [facility] [address] [place] [address] Dr. Ronald Wong LYMPHM # 0.59 103/ul Critically low 1.20-3.80 [facility] Comment on above: Performed By: #### C BCMAN #### [facility] [address] [place] [address] Dr. Ronald Wong LYMPHM% 37.0 % Normal 20.5-60.0 [facility] Comment on above: Performed By: #### C BCSISSY #### [facility] [address] [place] [address] Dr. Ronald Wong MACROCYTOSIS 2+ Normal [facility] Comment on above: Performed By: #### C BCSISSY #### [facility] [address] [place] [address] Dr. Ronald Wong MCH 38.8 pg Critically high 26.7-34.0 [facility] Comment on above: Performed By: #### C BCSISSY #### [facility] [address] [place] [address] Dr. Ronald Wong MCHC 33.2 g/dl Normal 29.9-35.2 [facility] Comment on above: Performed By: #### C BCSISSY #### [facility] [address] [place] [address] Dr. Ronald Wong MCV 116.9 fL Critically high 81.0-99.0 [facility] Comment on above: Performed By: #### C BCSISSY #### [facility] [address] [place] [address] Dr. Ronald Wong METAMYELOCYTE # Normal [facility] Comment on above: Performed By: #### C BCMAN #### [facility] [address] [place] [address] Dr. Ronald Wong METAMYELOCYTE % Normal [facility] Comment on above: Performed By: #### C BCSISSY #### [facility] [address] [place] [address] Dr. Ronald Wong MONOM# 0.13 103/ul Critically low 0.30-0.80 [facility] Comment on above: Performed By: #### C JIL #### [facility] [address] [place] [address] Dr. Ronald Wong MONOM% 8.0 % Normal 1.7-12.0 [facility] Comment on above: Performed By: #### C JIL #### [facility] [address] [address] [address] Ronald Wong MPV 10.6 fL Normal 9.5-13.5 [facility] Comment on above: Performed By: #### C JIL #### [facility] [address] [place] [address] Dr. Ronald Wong MYELOCYTE # Normal [facility] Comment on above: Performed By: #### C JIL #### [facility] [address] [place] [address] Dr. Ronald Wong MYELOCYTE % Normal [facility] Comment on above: Performed By: #### C JIL #### [facility] [address] [place] [address] Dr. Ronald Wong NRBC Normal [facility] Comment on above: Performed By: #### C JIL #### [facility] [address] [place] [address] Dr. Ronald Wong PLT 43 103/ul Critically low 150-450 [facility] Comment on above: Performed By: #### C JIL #### [facility] [address] [place] [address] Dr. Ronald Wong RBC 2.37 106/ul Critically low 4.20-5.40 [facility] Comment on above: Performed By: #### C JIL #### [facility] [address] [place] [address] Dr. Ronald Wong RDW 15.2 % Critically high 11.0-15.0 [facility] Comment on above: Performed By: #### C JIL #### [facility] [address] [place] [address] Dr. Ronald Wong SEG # 0.83 103/ul Critically low 1.40-6.50 [facility] Comment on above: Performed By: #### C JIL #### [facility] [address] [address] [address] Ronald Wong SEG % 52.0 % Normal 43.0-75.0 [facility] Comment on above: Performed By: #### C JIL #### [facility] [address] [address] [address] Ronald Wong WBC 1.6 103/ul Critically low 4.0-11.0 [facility] Comment on above: Performed By: #### C JIL #### [facility] [address] [address] [address] STROKE HEAD WOon 09-01-[address] [...] TYLER SOLIS Date: 2021-09-01 20:14 Normal [facility] SARS-CoV-2 (COVID-19) RNA KORY+probe Ql (Unsp spec) Not detected Normal NOT DETECTED [facility] Comment on above: Result Comment: When [...] for this test is supported by the [employer] of Health and Human Service's declaration that [...] used). Performed By: #### C BCMAN #### [facility] [address] [place] [address] Dr. Ronald Wong ER URINE PROFILEon 2 Bilirubin Ql (U) Negative Normal NEGATIVE [facility] Comment on above: Performed By: #### C BC #### [facility] [address] [place] [address] Dr. Ronald Wong Clarity (U) CLEAR Normal CLEAR [facility] Comment on above: Performed By: #### C BC #### [facility] [address] [place] [address] Dr. Ronald Wong Color (U) YELLOW Normal YELLOW [facility] Comment on above: Performed By: #### C BC #### [facility] [address] [place] [address] Dr. Ronald Wong ERUAHD A micrscopic examina tion will be performed if indicated. Normal [facility] Comment on above: Performed By: #### C BC #### [facility] [address] [place] [address] Dr. Ronald Wong Glucose Ql (U) Negative Normal NEGATIVE [facility] Comment on above: Performed By: #### C BC #### [facility] [address] [place] [address] Dr. Ronald Wong Hemoglobin Ql (U) Negative Normal NEGATIVE [facility] Comment on above: Performed By: #### C BC #### [facility] [address] [place] [address] Dr. Ronald Wong Ketones Ql (U) TRACE Abnormal NEGATIVE [facility] Comment on above: Performed By: #### C BC #### [facility] [address] [place] [address] Dr. Ronald Wong LEUKOCYTES Negative Normal NEGATIVE [facility] Comment on above: Performed By: #### C BC #### [facility] [address] [place] [address] Dr. Ronald Wong Nitrite Ql (U) Negative Normal NEGATIVE [facility] Comment on above: Performed By: #### C BC #### [facility] [address] [place] [address] Dr. Ronald Wong pH (U) 6.0 [pH] Normal 5-9 [facility] Comment on above: Performed By: #### C BC #### [facility] [address] [place] [address] Dr. Ronald Wong SPEC GRAVITY 1.025 Normal 1.005-<=1.0 25 [facility] Comment on above: Performed By: #### C BC #### [facility] [address] [place] [address] Dr. Ronald Wong UA PROTEIN Negative Normal NEGATIVE/ TRACE [facility] Comment on above: Performed By: #### C BC #### [facility] [address] [place] [address] Dr. Ronald Wong UR MICRO IND NOT INDICATED Normal [facility] Comment on above: Performed By: #### C BC #### [facility] [address] [place] [address] Dr. Ronald Wong Urobilinogen Qn (U) 1.0 {Yanick'U}/dL Normal 0.2 - 1.0 [facility] Comment on above: Performed By: #### C BC #### [facility] [address] [place] [address] Dr. Ronald Wong LACTATE/LACTIC ACIDon 2021 Lactate [Moles/Vol] 1.1 mmol/L Normal 0.7-2.0 [facility] Comment on above: Performed By: #### C BC #### [facility] [address] [place] [address] Dr. Ronald Wong PROF 14(COMP METB)on 022 Albumin [Mass/Vol] 3.2 g/dL Critically low 3.5-5.0 Th e [facility] Comment on above: Performed By: #### C MP #### [facility] [address] [place] [address] Dr. Ronald Wong Albumin/Globulin [Mass ratio] 0.8 {ratio} Normal [facility] Comment on above: Performed By: #### C MP #### [facility] [address] [place] [address] Dr. Ronald Wong ALP [Catalytic activity/Vol] 97 U/L Normal 38-126 [facility] Comment on above: Performed By: #### C MP #### [facility] [address] [place] [address] Dr. Ronald Wong ALT [Catalytic activity/Vol] 10 U/L Normal 9-52 [facility] Comment on above: Performed By: #### C MP #### [facility] [address] [place] [address] Dr. Ronald Wong Anion gap [Moles/Vol] 10.7 mmol/L Normal [facility] Comment on above: Performed By: #### C MP #### [facility] [address] [place] [address] Dr. Ronald Wong AST [Catalytic activity/Vol] 21 U/L Normal 14-36 [facility] Comment on above: Performed By: #### C MP #### [facility] [address] [place] [address] Dr. Ronald Wong Bilirubin [Mass/Vol] 1.5 mg/dL Critically high 0.2-1.3 [facility] Comment on above: Performed By: #### C MP #### [facility] [address] [place] [address] Dr. Ronald Wong Calcium [Mass/Vol] 8.9 mg/dL Normal 8.4-10.2 [facility] Comment on above: Performed By: #### C MP #### [facility] [address] [address] [address] Ronald Wong Chloride [Moles/Vol] 108 mmol/L Critically high 98-107 [facility] Comment on above: Performed By: #### C MP #### [facility] [address] [address] [address] Ronald Wong CO2 [Moles/Vol] 26.8 mmol/L Normal 22.0-30.0 [facility] Comment on above: Performed By: #### C MP #### [facility] [address] [address] [address] Ronald Wong Creatinine [Mass/Vol] 1.13 mg/dL Critically high 0.52-1.04 [facility] Comment on above: Performed By: #### C MP #### [facility] [address] [address] [address] Ronald Wong EGFR-AF SLOVAK 59 mL/min/1.73m2 Critically low >=60 [facility] Comment on above: Performed By: #### C MP #### [facility] [address] [address] [address] Ronald Wong EGFR-NON AF SLOVAK 48 mL/min/1.73m2 Critically low >=60 [facility] Comment on above: Performed By: #### C MP #### [facility] [address] [address] [address] Ronald Wong Globulin (S) [Mass/Vol] 4.1 g/dL Normal [facility] Comment on above: Performed By: #### C MP #### [facility] [address] [address] [address] Ronald Wong Glucose [Mass/Vol] 131 mg/dL Critically high 74-106 [facility] Comment on above: Performed By: #### C MP #### [facility] [address] [address] [address] Ronald Wong Potassium [Moles/Vol] 4.5 mmol/L Normal 3.4-5.0 [facility] Comment on above: Performed By: #### C MP #### [facility] [address] [address] [address] Ronald Wong Protein [Mass/Vol] 7.3 g/dL Normal 6.1-8.2 [facility] Comment on above: Performed By: #### C MP #### [facility] [address] [place] [address] Dr. Ronald Wong Sodium [Moles/Vol] 141 mmol/L Normal 137-145 [facility] Comment on above: Performed By: #### C MP #### [facility] [address] [address] [address] Ronald Wong Urea nitrogen [Mass/Vol] 18.0 mg/dL Critically high 7.0-17.0 [facility] Comment on above: Performed By: #### C MP #### [facility] [address] [place] [address] Dr. Ronald Wong Urea nitrogen/Creatinin e [Mass ratio] 15.9 mg/mg Normal [facility] Comment on above: Performed By: #### C MP #### [facility] [address] [place] [address] Dr. Ronald Wong PROTIMEon 09-01-2021 INR Coag (PPP) [Relative time] 1.06 {INR} Normal [facility] Comment on above: Performed By: #### C BC #### [facility] [address] [place] [address] Dr. Ronald Wong INR GUIDELINES SEE BELOW Normal [facility] Comment on above: Result Comment: HELADIO RED INR: 2.0 - 3.0 CONDITIONS NOT LISTED BELOW 2.5 - 3.5 FOR PROSTHETIC HEART VALVE REPLACEMENT 2.5 - 3.5 RECURRENT THROMBOSIS Performed By: #### C BC #### [facility] [address] [place] [address] Dr. Ronald Wong PT Coag (PPP) [Time] 11.4 s Normal 9.0-11.6 [facility] Comment on above: Performed By: #### C BC #### [facility] [address] [place] [address] Dr. Ronald Wong PTTon 09-01-2021 aPTT Coag (Bld) [Time] 24.5 s Normal 22.3-36.2 [facility] Comment on above: Performed By: #### C #### [facility] [address] [place] [address] Dr. Ronald Wong Endoscopy Reporton Endoscopy Report MR#: [id number] [facility] Pt. Name: Laney Larios Surgery Date: [...] Lucas M.D. Date Trans: 06/27/2021 04:11 A/royal [id number] Normal [facility] POC GLUCOSE LABon 06-26-2021 Glucose [Mass/Vol] 106 mg/dL High 70-100 [facility] Comment on above: Performed By: #### [id number] #### [facility] Michel MONSON. [address] Endoscopy Reporton Endoscopy Report MR#: [id number] [facility] Pt. Name: Laney Larios Surgery Date: [...] P/Marcy Le DO Date Trans: 03/25/2021 06:50 A/mmo [id number] Normal [facility] Alcohol, Medicalon 8 Ethanol mg/dL Invalid Interpretation Code <3.00 mg/dL [facility] Comment on above: Alcohol cutoff: <3.0 0 mg/dL = None Detected Ammoniaon 01-08-2018 Ammonia 135 micromol/L High 12 - 47 [facility] Blood Gas, Venouson 01-09-20 18 Base Excess, Homar 0.0 1 Invalid Interpretation Code -2.0 - 2.0 [facility] Bicarbonate (HCO3) 24.3 mmol/L Invalid Interpretation Code 24 - 28 mmol/L [facility] CO2 40.2 mm Hg Low 41.0 - 51.0 [facility] Hematocrit (HCT) 29.5 % Low 36 - 46 % [facility] Hemoglobin mass conc (Bld) 9.5 g/dL Low 12 - 16 g/dL [facility] O2 saturation 47.2 % Invalid Interpretation Code [facility] pH, Venous 7.40 1 Invalid Interpretation Code 7.32 - 7.42 [facility] pO2, Homar 28 mm Hg Invalid Interpretation Code 25 - 40 [facility] CBC Auto Differentialon 12-12 Basophils Auto #/vol (Bld) 0.03 K/mcL Invalid Interpretation Code 0.00 - 0.30 [facility] Basophils/100 WBC Auto (Bld) 0.6 % Invalid Interpretation Code [facility] Eosinophils 0.13 K/mcL Invalid Interpretation Code 0.00 - 0.50 [facility] Eosinophils/100 leukocytes 2.8 % Invalid Interpretation Code [facility] Erythrocyte distribution width Auto Entitic volume (RBC) 14.9 % High 11.6 - 14.8 % [facility] Erythrocytes (RBC) 2.72 M/mcL Low 4.00 - 5.20 [facility] AB Hematocrit (HCT) 27.9 % Low 36 - 46 % [facility] Hemoglobin mass conc (Bld) 9.4 g/dL Low 12 - 16 g/dL [facility] Immature granulocytes #/vol (Bld) 0.01 K/mcL Invalid Interpretation Code 0.00 - 0.30 [facility] Immature granulocytes/100 WBC (Bld) 0.20 % Invalid Interpretation Code [facility] Comment on above: The IG parameter is the percentage of metamyelocytes, myelocytes, and promyelocytes. Lymphocytes 1.72 K/mcL Invalid Interpretation Code 0.90 - 4.00 [facility] Lymphocytes/100 leukocytes 37.1 % Invalid Interpretation Code [facility] MCH 34.6 pg High 26 - 34 pg [facility] MCHC mass conc (RBC) 33.7 g/dL Invalid Interpretation Code 31 - 37 g/dL [facility] MCV 102.6 fL High 80 - 100 fL [facility] Monocytes 0.35 K/mcL Invalid Interpretation Code 0.30 - 0.90 [facility] Monocytes/100 leukocytes 7.6 % Invalid Interpretation Code [facility] Neutrophils 2.39 K/mcL Invalid Interpretation Code 1.70 - 7.00 [facility] Neutrophils/100 WBC Auto (Bld) 51.7 % Invalid Interpretation Code [facility] Nucleated erythrocytes 0.00 K/mcL Invalid Interpretation Code 0.00 - 0.00 [facility] Nucleated erythrocytes/100 erythrocytes 0.0 % Invalid Interpretation Code [facility] Platelet mean volume (PMV) 9.5 fL Invalid Interpretation Code 9 - 15.5 fL [facility] Platelets 142 K/mcL Low 150 - 400 [facility] WBC (Leukocytes) 4.63 K/mcL Invalid Interpretation Code 4.50 - 11.00 [facility] CBC w/ Diffon 01-08-2018 Creatinine The following orders were created for panel order CBC w/ Diff. Procedure Abnormality Status --------- ------ CBC Auto Differential[[id number]] Abnormal Final result Please view results for these tests on the individual orders. Invalid Interpretation Code [facility] CT ABDOMEN PELVIS WITH IV CO NTRAST [...] HypokalemiaCOMPARISON:CT of the abdomen and pelvis from [facility] 05/02/2015.TECHNIQUE:CT examination of the abdomen and [...] of the wall of the ascending and mtdvznbk-xs-idq transverse colon which may be related to [...] morphology of the liver with splenomegaly and ahxso-uy-sjjbuydh volume of predominantly upper abdominal ascites and stigmata of portal hypertension, similar in appearance to the prior examination. Pneumobilia and prior cholecystectomy, as before.2. There is thickening of the wall of the ascending and nljxlvgw-gl-evf transverse colon which may be related to [...] with grade 1 anterolisthesis of L5 on S1.[facility]/sWorkstation ID: [id number] by: SHADE MANCERA on Sat Jan 08, 2018 1:03:05 AM EDTTranscribed by: LON WILD on WedJan 08, 2018 1:14:48 AM EDTFinalized by: SHADE MANCERA on WedJan 08, 2018 3:58:36 AM EDT [facility] Comment on above: Order Comment: Reaso n [...] CT of the abdomen and pelvis from [facility] 05/02/2015. TECHNIQUE: CT examination of the [...] of the wall of the ascending and niaibfjm-ca-cjw transverse colon which may be related to [...] Bilateral L5 pars defects. Invalid Interpretation Code [employer] [facility] CT Abdomen Pelvis With IV Contrast Only 1. 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 Pneumobilia and prior cholecystectomy, as before. 2. There is thickening of the wall of the ascending and mibcxvel-rc-clf transverse colon which may be related to [...] grade 1 anterolisthesis of L5 on S1. [employer] Workstation ID: [id number] Invalid Interpretation Code [employer] [facility] CT Abdomen Pelvis With IV Contrast Only Interface, Rad In Ophis Vape - 01/08/2018 4:01 AM EDT EXAMINATION: CT [...] CT of the abdomen and pelvis from [facility] 05/02/2015. TECHNIQUE: CT examination of the [...] of the wall of the ascending and jdiafmjc-ny-lae transverse colon which may be related to [...] morphology of the liver with splenomegaly and uocxq-gf-htkwvone volume of predominantly upper abdominal ascites and stigmata of portal hypertension, similar in appearance to the prior examination. Pneumobilia and prior cholecystectomy, as before. 2. There is thickening of the wall of the ascending and gkiavudq-yw-jfm transverse colon which may be related to [...] grade 1 anterolisthesis of L5 on S1. [facility]/s Workstation ID: [id number] Invalid Interpretation Code [employer] [facility] CT HEAD OR BRAIN WITHOUT CON [...] on the left, not significantly changed.Workstation ID: [id number] by: XANDER SUAZO on WedJan 07, 2018 11:55:50 PM EDTTranscribed by: XANDER SUAZO on WedJan 07, 2018 11:55:50 PM EDTFinalized by: XANDER SUAZO on WedJan 07, 2018 11:55:50 PM EDT [facility] Comment on above: Order Comment: Reaso n [...] the left, not significantly changed. Workstation ID: [id number] Invalid Interpretation Code [facility] CT Head Or Brain Without [...] right external auditory canal. Invalid Interpretation Code [facility] CT Head Or Brain Without Contrast Interface, Rad In Fuj Speechq - 01/07/2018 11:58 PM EDT EXAMINATION: [...] the left, not significantly changed. Workstation ID: [id number] Invalid Interpretation Code [employer] [facility] Chem 7on 01-08-2018 Anion gap 11 mmol/L Invalid Interpretation Code 10 - 20 mmol/L [facility] Bicarbonate (HCO3) 23 mmol/L Invalid Interpretation Code 21 - 32 mmol/L [facility] BUN/Creatinine Ratio 22.1 mg/mg High 10.0 - 20.0 [facility] Chloride 114 mmol/L High 98 - 108 mmol/L [facility] Creatinine 0.86 mg/dL Invalid Interpretation Code 0.6 - 1.2 mg/dL [facility] eGFR (non-black) 73 mL/min/{1.73_m2} Invalid Interpretation Code >=60 [facility] eGFR (non-black) The eGFR should be u sed for monitoring renal function only and not for medication dosing. Invalid Interpretation Code [facility] Glucose mass conc 104 mg/dL High 65 - 99 mg/dL [facility] Potassium molar conc 3.0 mmol/L Low 3.5 - 5.1 mmol/L [facility] Sodium 145 mmol/L Invalid Interpretation Code 135 - 145 mmol/L [facility] Urea nitrogen 19 mg/dL Invalid Interpretation Code 8 - 25 mg/dL [facility] EKG 12-leadon 01-08-2018 EKG 12-lead Joanne Beasley 01/08/2018 1:20 AM [...] Invalid Interpretation Code 14 - 65 U/L [facility] Albumin 1.7 g/dL Low 3.2 - 5.2 g/dL [facility] Alkaline phosphatase (ALP) 299 U/L High 40 - 150 U/L [facility] Aspartate aminotransferase (AST) 31 U/L Invalid Interpretation Code 0 - 45 U/L [facility] Bilirubin (conjugated) 1.3 mg/dL High 0 - 0.4 mg/dL [facility] Bilirubin (total) 2.2 mg/dL High 0 - 1.3 mg/dL [facility] Protein 9.0 g/dL High 6 - 8 g/dL [facility] Lavender Topon 01-08-2018 Extra Tube Hold for add-ons. Invalid Interpretation Code [facility] Comment on above: Auto resulted. POC Glucoseon 01-08-2018 Glucose mass conc 105 mg/dL High 65 - 99 mg/dL [facility] PT/INRon 01-08-2018 INR Coag RelTime (Bld) During the induction phase of oral anticoagulation, the INR may not reflect the anticoagulation status of the patient. Therapeutic ranges for INR's are: Most clinical situations: INR 2.0-3.0 Mechanical Prosthetic Valve: INR 2.5-3.5 Critical: INR >5.0 Invalid Interpretation Code [facility] INR Coag RelTime (PPP) 1.6 {INR} High 0.8 - 1.1 [facility] Prothrombin time (PT) Coag time (PPP) 19.1 s High 11.8 - 14.3 [facility] Grayling Drawon 01-08-2018 Creatinine The following orders were created for panel order [place] Draw. Procedure Abnormality Status --------- ------ Lavender Top[[id number]] Final result Mint Green Top[[id number]] Final result Gold Top[[id number]] Final result Light Blue Top[[id number]] Final result Please view results for these tests on the individual orders. Invalid Interpretation Code [facility] Troponinon 01-08-2018 Troponin I.cardiac mass conc ng/mL Invalid Interpretation Code <=45 ng/L [facility] Comment on above: The 2014 AHA/ACC Gu ideline for the Management of Patients With Mej-IV-Exantqgqx Acute Coronary Syndromes defines myocardial infarction (MD) as follows: 1. For troponin-I value above the 45 ng/L (99th percentile) cut-off, a rise or fall greater than or equal to 20% from the initial value is indicative of MD, in conjunction with the appropriate clinical symptoms. 2. For troponin-I value less than 45ng/L an absolute value change greater than or equal to 8ng/L is indicative of myocardial necrosis. Urinalysison 01-08-2018 Bilirubin Ql (U) Positive Abnormal Negative [facility] Comment on above: False positive urine bilirubins can occur in the setting of a large amount of hemoglobin and secondary to medications including anti-inflammatory agents, rifampin, and pyridium. Blood, Urine Large Abnormal Negative [facility] Interpretation and review of laboratory [...] 1 Invalid Interpretation Code 1.005 - 1.025 [facility] Urine, urobilinogen >=4.0 Abnormal <2.0 mg/dL [...] quantified by microscopic examination. Invalid Interpretation Code [facility] Urine Drug Screenon 01-09-20 18 Amphetamine Screen, Urine None Detected Invalid Interpretation Code None Detected [facility] Comment on above: Urine Amphetamine Cu toff: < 1000 ng/mL = None Detected Cocaine, Screen Urine None Detected Invalid Interpretation Code None Detected [facility] Comment on above: Urine Cocaine Cutoff : < 300 ng/mL = None Detected Interpretation and review of laboratory results Normal Invalid Interpretation Code [facility] Methadone Screen, Urine None Detected Invalid Interpretation [...] Detected [facility] Comment on above: Urine Cannabinoids C utoff: < 50 ng/mL = None Detected Urine Drug Screen Screen results shoul d be used for treatment purposes only. Invalid Interpretation Code [facility] VBG (Obtain Venous Blood Gas es)on 01-08-2018 VBG (Obtain Venous Blood Gases) Invalid Interpretation Code [facility] XR CHEST PA/APon 01-08-2018 XR CHEST PA/AP EXAMINATION:XR CHEST PA/APHISTORY:Weakness and chest pain.TECHNIQUE:XR CHEST PA/APCOMPARISON:04/10/2016.F INDINGS:Lungs are hypoinflated. No large pneumothorax or pleural effusion is visualized. No focal airspace consolidation is visualized. Right-sided discoid atelectasis noted. Unchanged cardiomediastinal silhouette and osseous structures noted. Probable cholecystectomy clips noted.IMPRESSION:No acute pulmonary abnormality is visualized./vWorkstation ID: [id number] by: NOEMY PÉREZ on WedJan 07, 2018 11:13:30 PM EDTTranscribed by: VIMAL TABARES on WedJan 07, 2018 11:17:27 PM EDTFinalized by: NOEMY PÉREZ on WedJan 08, 2018 3:41:50 AM EDT [facility] Comment on above: Order Comment: Reaso n for exam?:chest painInjury/Trauma or Illness?:Illness/OtherHow long have you had these symptoms (acute/chronic)?:AcuteHistory of cancer?:?Surgeries, chemotherapy, or radiation?:cholecystectomyType of Exam?:InitialAdditional signs and symptoms?:sob XR Chest 1 Viewon 01-08-2018 XR Chest 1 View Interface, Rad In Mars lr Speechq - 01/08/2018 3:44 AM EDT EXAMINATION: XR CHEST PA/AP HISTORY: Weakness and chest pain. TECHNIQUE: XR CHEST PA/AP COMPARISON: 04/10/2016. FINDINGS: Lungs are hypoinflated. No large pneumothorax or pleural effusion is visualized. No focal airspace consolidation is visualized. Right-sided discoid atelectasis noted. Unchanged cardiomediastinal silhouette and osseous structures noted. Probable cholecystectomy clips noted. IMPRESSION: No acute pulmonary abnormality is visualized. [employer] Workstation ID: [id number] Invalid Interpretation Code [employer] [facility] XR Chest 1 View No acute pulmonary abnormality is visualized. [employer] Workstation ID: [id number] Invalid Interpretation Code [facility] XR Chest 1 View EXAMINATION: XR CHES T PA/AP HISTORY: Weakness and chest pain. TECHNIQUE: XR CHEST PA/AP COMPARISON: 04/10/2016. FINDINGS: Lungs are hypoinflated. No large pneumothorax or pleural effusion is visualized. No focal airspace consolidation is visualized. Right-sided discoid atelectasis noted. Unchanged cardiomediastinal silhouette and osseous structures noted. Probable cholecystectomy clips noted. Invalid Interpretation Code [facility] XR WRIST LEFT 3+ VIEWS (BARB MAE)on 08-25-2017 XR WRIST LEFT 3+ VIEWS (STANDARD) EXAMINATION:XR WRIST LEFT 3+ VIEWS (STANDARD)HISTORY:ORDERING SYSTEM PROVIDED HISTORY: POST OP, TECHNOLOGIST PROVIDED HISTORY: Reason for exam: fxInjury/TraumaCancer History: ?Surgery, RadiationHistory: cholecystectomyEncounter Type: Subsequent/Follow-upMechanis m of injury: contustionORDERING SYSTEM PROVIDED DIAGNOSIS CODES:S52.502A Closed fracture distal radius and ulna, left, initial rgtsegsgvB03.602A Closed fracture distal radius and ulna, left, [...] and no complication is appreciated.MARCIANO/Rigoberto on ID: [id number] by: KALA BREWSTER on WedAug 25, 2017 3:09:11 PM ESTTranscribed by: DAPHNEY RODRIGEZ on WedAug 25, 2017 3:57:29 PM ESTFinalized by: KALA BREWSTER on WedAug 25, 2017 4:03:47 PM EST [facility] Comment on above: Order Comment: Reaso n for exam?:fxInjury/Trauma or Illness?:Injury/TraumaHow long have you had these symptoms (acute/chronic)?:ChronicHistory of cancer?:?Surgeries, chemotherapy, or radiation?:cholecystectomyType of Exam?:Subsequent/Follow-upMechanism of injury?:contustion XR FLUOROSCOPY LESS THAN ONE HOURon 08-10-2017 XR FLUOROSCOPY LESS THAN ONE HOUR This is an auto finalized result. Please refer to patient chart for further information. information. information. [facility] Comment on above: Order Comment: Reaso n [...] inner ear cavity. Partially included in the kwqed-zd-xtph are left facial fractures including a depressed inferior left orbital wall fracture with hemorrhage in the left maxillary sinus.IMPRESSION:1. No signs of an acute intracranial process.2. Generalized atrophy of the brain with cnll-tk-qvkhifaa probable chronic small vessel ischemic changes.3. Opacification of the right mastoid air cells and inner ear cavity, which may be related to age-indeterminate otomastoiditis. Clinical correlation is recommended.4. Partially imaged are left facial fractures including a depressed left inferior orbital wall fracture with hemorrhage in the left maxillary sinus. Please see the CT facial bone report for further details.JAR/bdWorkstation ID: [id number] by: SY LEAHY on WedAug 03, 2017 4:06:30 PM ESTTranscribed by: BRENDAN VALDES on WedAug 03, 2017 4:11:43 PM ESTFinalized by: SY LEAHY on WedAug 03, 2017 5:47:14 PM EST [facility] Comment on above: Order Comment: Reaso n [...] intraorbital hematoma. The globe is intact.JAR/bdWorkstation ID: [id number] by: SY LEAHY on WedAug 03, 2017 4:22:29 PM ESTTranscribed by: BRENDAN VALDES on WedAug 03, 2017 4:26:18 PM ESTFinalized by: SY LEAHY on WedAug 03, 2017 5:47:02 PM EST [facility] Comment on above: Order Comment: Reaso n [...] nondisplaced fracture at the distal ulnar metaphysis.Diffuse osteopenia.[facility]/children's minnesotaWorkstatio n ID: [id number] by: TYLER PORTILLO on WedAug 03, 2017 1:51:41 PM ESTTranscribed by: LILLIE RODRIGUEZ on WedAug 03, 2017 1:55:44 PM ESTFinalized by: TYLER PORTILLO on WedAug 03, 2017 3:03:15 PM EST [facility] Comment on above: Order Comment: Reaso n [...] Encntr screen for malignant neoplasm of genitourinary znwyriI20.8 Acid phosphatase wnaddeubB08.19 Personal history of digestive diseaseCOMPARISON:None.TECHN IQUE:Complete ultrasound [...] WedJul 29, 2017 8:29:54 PM EST Normal [facility] Comment on above: Order Comment: Reaso n for exam?:screen for malignant neoplasm of genitourinary organs, elevated acid phospataseInjury/Trauma or Illness?:Illness/OtherHow long have you had these symptoms (acute/chronic)?:UnknownHistory of cancer?:?Surgeries, chemotherapy, or radiation?:cholecystectomyType of Exam?:InitialAdditional signs and symptoms?:none CNOVSPon 02-04-2017 CNOVSP Visit (SP) Office (HEMAC[facility]) ----LANEY LARIOS ([id number]) 1955 [facility] Time Provider Department02/04/17 2:45 PM CAESAR VALENCIA HEMACL During your visit today, we recorded the following information about you: Temperature Pulse Respiration Blood pressure 97.7 degrees 80/minute 16/minute 102/63 Weight Height 46.4 kg 1.6 mMINDY REBECA SEGUNDO PA-C 02/04/2017 3:05 PM SignedCCKimHPWily Ajith Larios is a 61 year old [...] ANDamp;MINERALS/FERROUS FUM (MULTI VITAMIN ORAL) Take by mouth.Mead-3 Fatty Acids-Vitamin E 1,000 mg cap Take [...] kg (102 lb 3.2 oz) BMI 18.11 kg/c4Wquxvwx Appearance: alert and oriented, appearing in no [...] according to her.RUKHSANA RUSH-CReferring Provider: CAESAR VALENCIA [[id number]]Allergies As of Date: 02/04/2017(No Known Allergies)Date Reviewed: 02/04/2017Reviewed by: Cris Varma - Fully AssessedReason for Visit: Anemia [6] Cmt: 1 year follow upPrimary Visit Diagnosis:Anemia, unspecified type [D64.9] Other Visit Diagnosis:Wound infection [T14.8, L08.9]Order(s):IRON + TIBC [SQIRON] Order #: [id number] FUTURE FERRITIN BLD [SQFERR] Order #: [id number] FUTUREDisposition: Return in about 1 year (around [...] FOR*Encounter Status:Closed by LIGIA SEGUNDO on 02/04/17 [facility] PROGRESSon 02-04-2017 PROGRESS HNO ID: [id number] thor: Ligia Hernandezice: (none)Author Type: Physician AssistantType: Progress NotesFiled: 02/04/2017 3:05 PMNote Text:CCAkathrynJORGEWily Larios is a 61 year old female [...] ANDMINERALS/FERROUS FUM (MULTI VITAMIN ORAL) Take by mouth.Mead-3 Fatty Acids-Vitamin E 1,000 mg cap Take [...] kg (102 lb 3.2 oz) BMI 18.11 kg/w4Potscwr Appearance: alert and oriented, appearing in no [...] healing according to her.LIGIA SEGUNDO PA-C Normal [facility] Remote CBCDIF (for [facility] use only)on 02-04-2017 Abs Baso 0.01 k/uL Normal 0.00-0.10 [facility] Abs [place] 0.30 k/uL Normal 0.00-0.86 [facility] Abs Neut 2.10 k/uL Normal 1.45-7.50 [facility] Basophils/100 WBC Auto (Bld) 0.3 % Normal [facility] Eosinophils 0.21 10*3/uL Normal 0.00-0.45 [facility] Eosinophils/100 leukocytes 5.4 % Normal [facility] Erythrocyte distribution width Auto Ratio (RBC) 14.3 % Normal 11.5-15.0 [facility] Erythrocytes (RBC) 2.59 10*6/uL Low 3.90-5.[address] [facility] Hematocrit (HCT) 27.8 % Low 36.0-46.[address] [facility] Hemoglobin mass conc (Bld) 8.7 g/dL Low 11.5-15.5 [facility] Lymphocytes 1.25 10*3/uL Normal 1.00-4.00 [facility] Lymphocytes/100 leukocytes 32.3 % Normal [facility] MCH 33.6 pG Normal 26.0-34.0 [facility] MCHC mass conc (RBC) 31.3 g/dL Normal 30.5-36.0 [facility] MCV 107.3 fL High 80.0-100.0 [facility] Monocytes/100 leukocytes 7.8 % Normal [facility] Neutrophils/100 WBC Auto (Bld) 54.2 % Normal [facility] Platelet mean volume (PMV) 8.9 fL Low 9.0-12.7 [facility] Platelets 140 10*3/uL Low 150-400 [facility] WBC (Leukocytes) 3.87 10*3/uL Normal 3.70-11.00 [facility] Social History Date Type Detail Facility Start: 05-10-2018 Tobacco use and exposure Never used [facility] Start: 05-10-2018 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) [facility] Start: 01-07-2018 End: 05-10-2018 Tobacco smoking status NHIS Former smoker [facility] End: 08-10-2014 History of tobacco use Current smoker [facility] Sex Assigned At Not on file [facility] Vital Signs Date Time Vital Sign Value Performing Clinician Faci lity 01-08-2018 03:45-0400 BP Diastolic 64 mm[Hg] [facility] 01-08-2018 03:45-0400 BP Systolic 87 mm[Hg] [facility] 01-08-2018 03:45-0400 Pulse (Heart Rate) 71 /min [facility] 01-08-2018 03:45-0400 Pulse Oximetry 98 % [facility] 01-08-2018 03:45-0400 Respiratory Rate 18 /min [facility] 01-07-2018 22:19-0400 BMI (Body Mass Index) 17.01 kg/m2 [facility] 01-07-2018 22:19-0400 Body Temperature 97.59 [degF] [facility] 01-07-2018 22:19-0400 Height 160 cm [facility] 01-07-2018 22:19-0400 Weight 43.55 kg [facility] Clinical Notes 12-11-2022 to 11-29-2023 Note Date & Type Note Facility 11-29-2023 Note Called patient for t [facility] visit. Spoke with pts nurse, patient was out of the building- she must have forgotten about the appointment . Nurse states pt was admitted to the hospital a couple of weeks ago with elevated ammonia levels and anemia. The ammonia resolved, and she was transfused, and is now back to base line. Nurse states she is possibly moving around December [address] [facility] to live with family, and if/when she moves will establish with GI and hematology closer to where she lives. I will attempted to call patient later in the day for telehealth visit. Addendum: Multiple attempts were made to contact patient with out success. [facility] 11-29-2023 Note The patient was not seen. Please do not charge [facility] 09-28-2023 Note Patient: Laney Larois Procedure Summary Date: 09/28/23 Room / Location: [facility] Anesthesia Start: 1030 Anesthesia Stop: 1057 [...] per anesthesia protocol. No notable events documented. [facility] 09-28-2023 Note Gastroenterology His tory and [...] SECTION, LOW TRANSVERSE CHOLECYSTECTOMY COLONOSCOPY EXPLORATORY LAPAROTOMY [address] macedo to repair hernia HERNIA [...] ointment nystatin 100,000 unit/gram topical ointment Historical ProviderMD polyvinyl alcohol (Liquifilm Tears) 1.4 % ophthalmic solution Administer 1 drop into affected eye(s) twice a day. Historical ProviderMD albuterol 2.5 mg /3 mL (0.083 %) nebulizer solution albuterol sulfate 2.5 mg/3 mL (0.083 %) solution for nebulization 09/28/23 Historical Provider, MD hamm (Ci (more content not included)... [facility] 09-28-2023 Note Patient: Laney Larios Procedure Information Date/Time: 09/28/23 1045 Scheduled providers: Ade Tan MD; Dhiraj Martinez MD; LOREN Hamm Procedure: EGD Location: [facility] Relevant Problems Anesthesia (within normal limits) [...] Plan discussed with CAA. Additional Equipment Requests [facility] 08-17-2023 Note [facility] Gastroenterolog y Follow-Up Patient Visit CHIEF COMPLAINT [...] were seen, but unable to be banded 2/ unknown INR Repeat EGD was done 09/02/22 [...] that she will be moving to the [facility]. Recommendation was to establish with a GI provider in the area. INTERVAL 12/31/22: Mx Larios returns in follow up. 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 She has been off Imuran for approx 6 months. The Imuran was held Jun 2022 due to worsening anemia. Most recent liver enzymes ( off Imuran) were WNL Ms. Larios also follows with Dr. Hammond, Hematology in (more content not included)... [facility] 04-01-2023 Note [facility] Gastroenterolog y Follow-Up Patient Visit CHIEF COMPLAINT [...] were seen, but unable to be banded 2/ unknown INR Repeat EGD was done 09/02/22 [...] that she will be moving to the [facility]. Recommendation was to establish with a GI provider in the area. INTERVAL 12/31/22: Mx Larios returns in follow up. 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 She has been off Imuran for approx 6 months. The Imuran was held Jun 2022 due to worsening anemia. Most recent liver enzymes ( off Imuran) were WNL Ms. Larios also follow (more content not included)... [facility] 12-31-2022 Note [facility] Gastroenterolog y Follow-Up Patient Visit CHIEF COMPLAINT [...] that she will be moving to the [facility]. Recommendation was to establish with a GI provider in the area. INTERVAL 12/31/22: Mx Larios returns in follow up. 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 She has been off Imuran for approx 6 months. The Imuran was held Jun 2022 due to worsening anemia. Most recent liver enzymes ( off Imuran) were WNL Ms. Larios als (more content not included)... [facility] 12-11-2022 Note Patient: Laney Larios Procedure Information Anesthesia Start Date/Time: 12/11/22 1019 Scheduled providers: Waylon Broussard MD; Herb Mims MD; LOREN Curran Procedure: ENDOSCOPIC ULTRASOUND (UPPER) Location: [facility] Endoscopy Relevant Problems Cardio (+) Essential [...] Plan discussed with LOREN. Additional Equipment Requests [facility] 12-11-2022 Note Patient: Laney Larios Procedure Summary Date: 12/11/22 Room / Location: [facility] Endoscopy Anesthesia Start: 1019 Anesthesia Stop: 1125 Procedure: ENDOSCOPIC ULTRASOUND (UPPER) Diagnosis: Duodenal mass Scheduled Providers: Waylon Broussard MD; Herb Mims MD; LOREN Curran Responsible [...] per anesthesia protocol. No notable events documented. [facility] 12-11-[address] Broussard speaking with patient at bedside. Report called to Carolin Torres and spoke with Mandy. All questions answered at this time. Pictures from procedure and discharge instructions sent with patient back to facility Yajaira Mays RN PACU [facility] 12-11-2022 Note Airway Date/Time: 12/11/2022 10:25 AM Urgency: elective General Information and Staff Patient location during procedure: OR Anesthesiologist: Herb Mims MD Resident/TAPE TRANSFERRER/CAA: LOREN Curran Performed: resident/TAPE TRANSFERRER/CAA Indications and Patient Condition Indications for airway [...] 1 Number of other approaches attempted: 0 [facility] Summary Purpose Family History No Family [...] section and content) DATE CREATED AUTHOR 12/31/2017 [facility] DATE CREATED AUTHOR AUTHOR'S ORGANIZ ATION 01/05/2018 [facility] DATE CREATED AUTHOR AUTHOR'S ORGANIZ ATION 02/04/2018 [facility] DATE CREATED AUTHOR AUTHOR'S ORGANIZ ATION 09/08/2021 [facility] DATE CREATED AUTHOR AUTHOR'S ORGANIZ ATION 02/15/2022 [facility] DATE CREATED AUTHOR AUTHOR'S ORGANIZ ATION 12/06/2023 [facility] DATE CREATED AUTHOR AUTHOR'S ORGANIZ ATION 12/29/2023 [facility] ED Notes - Irina Wynn RN - 01/08/2018 3:55 AM EDTED Notes - Irina Wynn RN - 01/08/2018 3:42 AM EDTED Notes - Irina Wynn RN - 01/08/2018 3:33 AM EDT Miscellaneous Notes (unrecog nized section and content) Report given to: DEJA Sheehan at [facility] at this time. Report given to: [facility] Pt bathed head to toe d/t [...] may be different from the original. [facility] ED Physician Note: NAME: Laney Larios 62 y.o. CSN: [id number] PCP: Ghassan Peña CNP ED Course / Medical Decision Making: Patient comes in with altered mental status and seeing things and feeling fatigued. She has a history of liver cirrhosis. She states she seen at [facility] at [place]. 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 Her liver ammonia [...] do feel she needs transferred back to [facility] since that is where her care is for her cirrhosis and that is where patient wants to go. Case with [facility] transfer center they will call back when a bed available. My shift is ending so I discussed case with Dr. Dewey Arce and he will talk to [facility] and fill out transfer sheet once [...] HYPOKALEMIA Disposition: Patient is being Transfer to [facility] to [facility] Prescriptions No medications on file History: Chief [...] DISTAL RADIUS; Surgeon: Michael Latham MD; Location: [facility] Main OR; Service: Orthopedic FAM. Hx: Family [...] Procedure Abnormality Status --------- ------ CBC Auto Differential[[id number]] Abnormal Final result Please view results for these tests on the individual orders. OBTAIN VENOUS BLOOD GASES DRUGS OF ABUSE SCREEN, URINE CT Abdomen Pelvis With IV Contrast Only Preliminary Result 1. Cirrhotic morphology of the liver with splenomegaly and xirok-md-pliqywoi volume of predominantly upper abdominal ascites and stigmata of portal hypertension, similar in appearance to the prior examination. Pneumobilia and prior cholecystectomy, as before. 2. There is thickening of the wall of the ascending and slgwfzrb-vc-jvx transverse colon which may be related to [...] grade 1 anterolisthesis of L5 on S1. [facility] Workstation ID: [id number] CT Head Or Brain Without Contrast Final Result 1. No acute intracranial process. 2. Age-related atrophy with stable mild chronic small-vessel white matter ischemia. 3. Mild chronic-appearing left sphenoid sinusitis. 4. Bilateral mastoid effusions, moderate on the right and small on the left, not significantly changed. Workstation ID: [id number] XR Chest 1 View Preliminary Result No acute pulmonary abnormality is visualized. /[facility] Workstation ID: [id number] Procedures: EKG 12-lead Date/Time: 01/08/2018 12:11 AM Performed by: DEL CHRISTIANSON Authorized by: DEL CHRISTIANSON Interpreted by ED attending physician Rhythm: sinus rhythm BPM: 77 Conduction: conduction normal ST Segments: ST segments normal T Waves: T waves normal Clinical impression: abnormal ECG . . Del Christianson MD ED Physician [facility] Emergency Department (Please note that portions of [...] BE BASED ON THE PRIMARY CLINICAL RECORDS. [employer] provides no warranty or guarantee of the accuracy or completeness of information in this document.
[2024-01-05] MEDS: LACTATED RINGER'S SOLUTION 1,000 ML 100 ML IV (17:55)
--- NOTE | 2024-01-05 17:57 | P.HP_ITS ---
HPI H&P: HPI History of Present Illness Chief complaint: GENERAL WEAKNESS HYPERAMMONIEMIA ALTERED MENTAL Narrative: Patient resented to the emergency room with increasing altered mental status. She has a history of liver failure with resulted in hyperammonemia. Currently taking lactulose and Xifaxan although not sure she has been taking most recently. In ER had significant elevated hyperammonemia with a level of 188 When I saw the patient up in the intensive care unit, she was awake and looking but really did not answer questions, very somnolent. Discussed with nursing staff that is not her typical baseline. Other workup for etiologies in the emergency room were negative. Still suspect this is related to her ammonia level. Patient may need NG tube to get the lactulose and Xifaxan into her on a consistent basis. Currently not safe to swallow medications Opioid HPI Opioid Management Most Recent Pain and Opioid Data: Last Pain Assessment 01/05/24 18:00 Last ORT Total Score 1 01/05/24 17:28 Last ORT Risk Category Low Risk 01/05/24 17:28 PFSH PFS Medical History (Updated 01/05/24 @ 16:44 by RUKHSANA Steen) Hyperammonemia ?E72.20 - Disorder of urea cycle metabolism, unspecified (ICD-10) Chronic hypotension ?I95.89 - Other hypotension (ICD-10) Pancytopenia ?D61.818 - Other pancytopenia (ICD-10) GERD (gastroesophageal reflux disease) ?K21.9 - Gastro-esophageal reflux disease without esophagitis (ICD-10) Hypotension ?I95.9 - Hypotension, unspecified (ICD-10) Protein calorie malnutrition ?E46 - Unspecified protein-calorie malnutrition (ICD-10) Vitamin D deficiency ?E55.9 - Vitamin D deficiency, unspecified (ICD-10) Dry eye syndrome ?H04.129 - Dry eye syndrome of unspecified lacrimal gland (ICD-10) Hernia ?K46.9 - Unspecified abdominal hernia without obstruction or gangrene (ICD- 10) Hyperglycemia ?R73.9 - Hyperglycemia, unspecified (ICD-10) Hyperlipemia ?E78.5 - Hyperlipidemia, unspecified (ICD-10) Hepatic failure ?K72.90 - Hepatic failure, unspecified without coma (ICD-10) Cirrhosis of liver ?K74.60 - Unspecified cirrhosis of liver (ICD-10) Dysthymic disorder ?F34.1 - Dysthymic disorder (ICD-10) Depression ?F32.A - Depression, unspecified (ICD-10) COPD (chronic obstructive pulmonary disease) ?J44.9 - Chronic obstructive pulmonary disease, unspecified (ICD-10) Autoimmune hepatitis ?K75.4 - Autoimmune hepatitis (ICD-10) Surgical History (Updated 08/04/23 @ 11:58 by Jennifer Esteban) H/O: hysterectomy ?Z90.710 - Acquired absence of both cervix and uterus (ICD-10) History of cholecystectomy ?Z90.49 - Acquired absence of other specified parts of digestive tract (ICD- 10) Previous back surgery ?Z98.890 - Other specified postprocedural states (ICD-10) Family History (Updated 08/04/23 @ 12:00 by Jennifer Esteban) Other Family history not known due to adoption Social History Within the past year, how often did you have a drink containing alcohol: never Within the past year, how often did you have six or more drinks on one occasion: never Score interpretation: A score less than 3 is consistent with normal alcohol consumption. Smoking status: Former smoker Non-prescribed substance use: denies use Previous occupational history: retired Known occupational exposures/hazards: No Highest level of school completed/degree received: decline to answer Do you want help with school or training: No Are you now , , , , never or living with a partner: never Little interest or pleasure in doing things: not at all Feeling down, depressed, or hopeless: not at all Feel stressed/tense/nervous/anxious/difficulty sleeping: not at all Do you think of yourself as: straight/heterosexual Gender Identity: female Meds Home Medications and Allergies Home Medications ?Medication ?Instructions ?Recorded ?Confirmed ?Type albuterol sulfate 90 mcg/actuation 2 puff inhalation Q4H PRN 05/20/23 01/05/24 History aerosol inhaler shortness of breath or wheezing docusate sodium 100 mg capsule 100 mg PO DAILY 05/20/23 01/05/24 History fluticasone propionate 50 1 spray intranasal DAILY PRN 05/20/23 01/05/24 History mcg/actuation nasal allergy symptoms spray,suspension lactulose 10 gram/15 mL oral 20 g PO BID 05/20/23 01/05/24 History solution (Enulose) loratadine 10 mg chewable tablet 10 mg PO DAILY 05/20/23 01/05/24 History midodrine 10 mg tablet 10 mg PO TIDWM 05/20/23 01/05/24 History polyethylene glycol 3350 17 17 g PO DAILY PRN constipation 05/20/23 01/05/24 History gram/dose oral powder (ClearLax) potassium chloride 10 mEq 20 meq PO DAILY 05/20/23 01/05/24 History tablet,extended release (Klor-Con) rifaximin 550 mg tablet (Xifaxan) 550 mg PO BID 05/20/23 01/05/24 History sertraline 25 mg tablet 12.5 mg PO Q24H 05/20/23 01/05/24 History ursodiol 250 mg tablet 250 mg PO Q12H 05/20/23 01/05/24 History acetaminophen 325 mg tablet 650 mg PO Q6H PRN fever or pain 08/04/23 01/05/24 History cholecalciferol (vitamin D3) 1,250 1,250 mcg PO QWEEK 08/04/23 01/05/24 History mcg (50,000 unit) capsule (Weekly-D) magnesium oxide 400 mg PO DAILY 08/04/23 01/05/24 History pantoprazole 40 mg tablet,delayed 40 mg PO DAILY 08/04/23 01/05/24 History release (Protonix) trazodone 50 mg tablet 50 mg PO .QHS 08/04/23 01/05/24 History mirtazapine 15 mg tablet (Remeron) 7.5 mg PO .QHS 11/15/23 01/05/24 History Allergies Allergy/AdvReac Type Severity Reaction Status Date / Time No Known Drug Allergies Allergy Verified 05/20/23 18:30 Exam Constitutional Vital Signs, click to edit/add: Last Vital Signs Temp 97.6 F 01/05/24 17:28 Pulse 59 L 01/05/24 17:28 Resp 10 L 01/05/24 17:28 BP 125/68 01/05/24 17:28 Pulse Ox 100 01/05/24 17:28 O2 Del Method Room Air 01/05/24 17:28 Documenting provider has reviewed patient's vital signs: yes Common normals: no apparent distress Respiratory Common normals: normal respiratory effort, no retractions and clear to auscultation bilaterally Effort & inspection: decreased respiratory effort Cardio Common normals: regular rate, regular rhythm and no murmurs GI Common normals: Normal to inspection, nondistended, normoactive bowel sounds present, soft to palpation and non-tender (Not sure if it is reliable based on her level of mentation) Neuro Common normals: CN's II-XII intact bilaterally, moves all extremities and no focal motor deficits; not oriented x3 Results Labs Labs: Short CBC 01/05/24 Range/Units 14:52 WBC 1.9 L (4.0-11.0) 10^3/uL Hgb 8.3 L (12.0-16.0) g/dL Hct 25.7 L (36.0-48.0) % Plt Count 38 L (150-450) 10^3/uL BMP 01/05/24 14:52 Sodium 144 Potassium 4.5 Chloride 114 H Carbon Dioxide 23.4 BUN 26.0 H Creatinine 1.23 H Glucose 129 H Calcium 9.0 Liver Function 01/05/24 Range/Units 14:52 Total Bilirubin 1.0 (0.2-1.0) mg/dL AST 32 (15-37) U/L ALT 23 (14-59) U/L Alkaline Phosphatase 131 H (46-116) U/L Albumin 2.8 L (3.4-5.0) g/dL Urine 01/05/24 Range/Units 15:05 Urine Color Yellow (YELLOW) Urine Clarity Clear (CLEAR) Urine pH 6.5 (5.0-9.0) Ur Specific Walker 1.020 (1.005-1.025) Urine Protein Negative (NEG/TRACE) mg/dL Urine Glucose (UA) Negative (NEGATIVE) mg/dL ABG ABG results: 01/05/24 14:52 VBG pH 7.421 VBG pCO2 32.2 L Assessment and Plan Assessment and Plan (1) Hyperammonemia: (2) Altered mental status: (3) Pancytopenia: (4) GERD (gastroesophageal reflux disease): Qualifiers: Esophagitis presence: without esophagitis Qualified Code(s): K21.9 - Gastro-esophageal reflux disease without esophagitis (5) Hepatic failure: Plan Altered mental status secondary to hyperammonemia with a level of 188, secondary to liver failure from autoimmune disorder-family not around, discussed with nursing staff the need to have NG tube placed to get medications inconsistently. Can reassess in a.m. but so far no other etiologies were found for her altered mental status. Concern for possible infectious etiology, checking on urinalysis. Pancytopenia-this has been worked up in the past. Will monitor daily Acute kidney injury with a baseline creatinine of 1 and admission creatinine of 1.23 so 123% above baseline., IV fluids Moderate protein calorie malnutrition-May try supplementation, concern for diarrhea with the higher dose of the lactulose. Depression and anxiety-continue with home medications when she is able to swallow GERD-IV Protonix Hypomagnesemia-supplement monitor Admission status: Patient with significant altered mental status in severely high ammonia level, medically necessary treatment will span more than 2 midnights. Inpatient status.
[2024-01-05 18:25] LABS: Glucometer 117 mg/dL (74-106)
--- NOTE | 2024-01-05 18:44 | XR_ITS ---
[address] [address] Patient Name: LANEY LARIOS MRN: [id number] date: 1955 Sex: F Assigned Patient Location: ICU Current Patient Location: ICU Accession/Order Number: [id number] Exam Date: 01/05/2024 18:55 Report Date: 01/05/2024 19:18 At the request of: SHADE DOMIINQUE Procedure: XR chest 1V Exam: Radiographs: XR chest 1V Reason for exam: NGT placement Comparison: Plain films from earlier today XR/XR chest 1V IMPRESSION: Minimal scarring or linear atelectasis in the right mid and left lower lungs. NG tube with tip in the stomach. Pulmonary venous hypertension. Remainder the chest is unremarkable. Electronically authenticated by: KENNETH BOO Date: 01/05/2024 19:18
[2024-01-05] MEDS: URSODIOL 300 MG CAPSULE PO (20:15)
[2024-01-05] MEDS: PANTOPRAZOLE SODIUM 40 MG VIAL IV (20:15)
[2024-01-05] MEDS: RIFAXIMIN 550 MG TABLET PO ×2 (20:15→23:53)
[2024-01-05] MEDS: SERTRALINE HCL 50 MG TABLET 12.5 MG PO (20:15)
--- NOTE | 2024-01-05 20:40 | DIETREC ---
TF recommendation: Jevity 1.5 formula @ 40 mL/hour (goal rate) continuous to provide 1440 kcal, 61 gm PRO, 730 mL free water in 960 mL TV. Flush recommendation: 100 mL water q4 hours; TV 600 mL.
--- NOTE | 2024-01-05 21:29 | PC.NURSE ---
2020 Patient assessment completed. Patient laying supine with head turned to right side. Patient maintains right eye closed and left eye open even with verbal stimuli, sternal rub and patient care including turning and repositioning. Patient did appear to breifly move right arm and leg when turning patient to be able to provide care after liquid brown stool. Skin care provided including barrier ointment to coccyx area due to intact but slightly red area over amaya prominence. Disposable brief in use due to incontinence of bowel and bladder. Patient does not attempt to talk, communicate or make any noted sounds. Patient is coughing intermittently on her own, non-productive cough. Patient on room air. Patient repositioned with pillow under right hip due to reddened area of coccyx. Patient with HOB up. NG tube in place and ordered medications given without noted difficulty.
[2024-01-05] MEDS: TRAZODONE HCL 50 MG TABLET PO (23:52)
[2024-01-05] MEDS: MIRTAZAPINE 15 MG TABLET 7.5 MG PO (23:52)
[2024-01-05 23:53] LABS: Glucometer 147 mg/dL (74-106)
[2024-01-05] MEDS: LACTULOSE 10 GM/15 ML (237ML) SOLUTION 30 GM PO (23:53)
[2024-01-06] VITALS (34 sets, daily range): BP systolic 102–155; BP diastolic 62–85; PULSE 59–102; TEMP 36.6–36.8; O2SAT 88–100
[2024-01-06 03:49] LABS: A. calcoaceticus-baumannii Cpx NOT DETECTED (NOT DETECTE); Bacteroides fragilis NOT DETECTED (NOT DETECTE); Candida albicans NOT DETECTED (NOT DETECTE); Candida auris NOT DETECTED (NOT DETECTE); Candida glabrata NOT DETECTED (NOT DETECTE); Candida krusei NOT DETECTED (NOT DETECTE); Candida parapsilosis NOT DETECTED (NOT DETECTE); Candida tropicalis NOT DETECTED (NOT DETECTE); Cryptococcus neoformans/gattii NOT DETECTED (NOT DETECTE); Enterobacter cloacae complex NOT DETECTED (NOT DETECTE); Enterococcus faecalis NOT DETECTED (NOT DETECTE); Enterococcus faecium NOT DETECTED (NOT DETECTE); Haemophilus influenzae NOT DETECTED (NOT DETECTE); Klebsiella aerogenes NOT DETECTED (NOT DETECTE); Klebsiella pneumoniae group NOT DETECTED (NOT DETECTE); Listeria monocytogenes NOT DETECTED (NOT DETECTE); Neisseria meningitidis NOT DETECTED (NOT DETECTE); Proteus spp. NOT DETECTED (NOT DETECTE); Pseudomonas aeruginosa NOT DETECTED (NOT DETECTE); Salmonella spp. NOT DETECTED (NOT DETECTE); Serratia marcescens NOT DETECTED (NOT DETECTE); Staphylococcus epidermidis NOT DETECTED (NOT DETECTE); Staphylococcus lugdunensis NOT DETECTED (NOT DETECTE); Staphylococcus spp. NOT DETECTED (NOT DETECTE); Stenotrophomonas maltophilia NOT DETECTED (NOT DETECTE); Streptococcus agalactiae NOT DETECTED (NOT DETECTE); Streptococcus pneumoniae NOT DETECTED (NOT DETECTE); Streptococcus pyogenes NOT DETECTED (NOT DETECTE); Streptococcus spp. NOT DETECTED (NOT DETECTE)
[2024-01-06 04:07] LABS: Basophils Percent Auto 0.7 % (0.2-2.0); Eosinophils Percent Auto 2.7 % (0.9-7.0); Hematocrit 26.2 % (36.0-48.0); Hemoglobin 8.3 g/dL (12.0-16.0); Immature Granulocytes Abs Auto 0.01 10^3/uL (0.00-0.03); Immature Granulocytes Pct Auto 0.7 % (0.0-0.5); Lymphocytes Absolute Auto 0.5 10^3/uL (1.2-3.8); Lymphocytes Percent Auto 32.9 % (20.5-60.0); Mean Corpuscular HGB Conc 31.7 g/dL (29.9-35.2); Mean Corpuscular Hemoglobin 35.2 pg (26.7-34.0); Mean Platelet Volume 11.2 fL (9.5-13.5); Monocytes Absolute Auto 0.2 10^3/uL (0.3-0.8); Monocytes Percent Auto 12.1 % (1.7-12.0); Neutrophils Absolute Auto 0.8 10^3/uL (1.4-6.5); Neutrophils Percent Auto 50.9 % (43.0-75.0); Platelet Count 32 10^3/uL (150-450); Red Blood Count 2.36 10^6/uL (4.20-5.40); Red Cell Distribution Width 15.8 % (11.0-15.0); White Blood Count 1.5 10^3/uL (4.0-11.0)
[2024-01-06] MEDS: LACTATED RINGER'S SOLUTION 1,000 ML 100 ML IV ×3 (04:08→20:21)
[2024-01-06 04:28] LABS: Alanine Aminotransferase 26 U/L (14-59); Albumin Globulin Ratio 0.6; Albumin Level 2.8 g/dL (3.4-5.0); Alkaline Phosphatase 134 U/L (46-116); Aspartate Amino Transferase 34 U/L (15-37); BUN Creatinine Ratio 21.5; Bilirubin Total 1.3 mg/dL (0.2-1.0); Calcium 9.1 mg/dL (8.5-10.1); Carbon Dioxide 21.2 mmol/L (21.0-32.0); Chloride 112 mmol/L (98-107); Estimated GFR (African America 49 (>=60); Estimated GFR (Non-African Ame 41 (>=60); Globulin 4.9 g/dL; Glucose 133 mg/dL (74-106); Magnesium 2.5 mg/dL (1.8-2.4); Potassium 4.2 mmol/L (3.5-5.1); Sodium 141 mmol/L (136-145); Total Protein 7.7 g/dL (6.4-8.2)
[2024-01-06 04:30] LABS: Ammonia 97 umol/L (11-32)
[2024-01-06 05:06] LABS: CTX-M DETECTED (NOT DETECTE); Enterobacterales DETECTED (NOT DETECTE); Source BLOOD
[2024-01-06] MEDS: 0.9 % SODIUM CHLORIDE 1,000 ML 500 ML IV (06:39)
[2024-01-06] MEDS: RIFAXIMIN 550 MG TABLET PO ×3 (06:41→20:23)
[2024-01-06] MEDS: LACTULOSE 10 GM/15 ML (237ML) SOLUTION 30 GM PO ×3 (06:42→21:19)
[2024-01-06] MEDS: IMIPENEM/CILASTATIN SODIUM 500 MG in 0.9 % SODIUM CHLORIDE 100 ML 100 MG IV ×3 (07:49→21:19)
--- NOTE | 2024-01-06 09:18 | P.PN_ITS ---
Progress Note: Subjective Subjective Interval history: Patient much more awake and alert this morning. Appears to answer questions appropriately but does hesitate with answering. Exam Constitutional Vital Signs, click to edit/add: Last Vital Signs Temp 97.8 F 01/05/24 20:15 Pulse 80 01/06/24 06:40 Resp 14 01/06/24 04:00 BP 121/69 01/05/24 20:15 Pulse Ox 98 01/06/24 04:20 O2 Del Method Room Air 01/06/24 04:20 Documenting provider has reviewed patient's vital signs: yes Common normals: no apparent distress Respiratory Common normals: normal respiratory effort, no retractions and clear to auscultation bilaterally Effort & inspection: decreased respiratory effort Cardio Common normals: regular rate, regular rhythm and no murmurs GI Common normals: Normal to inspection, nondistended, normoactive bowel sounds present, soft to palpation and non-tender (Not sure if it is reliable based on her level of mentation) Neuro Common normals: oriented x3, CN's II-XII intact bilaterally, moves all extremities and no focal motor deficits Progress Note: Objective Labs Labs: Short CBC 01/05/24 01/06/24 Range/Units 14:52 04:00 WBC 1.9 L 1.5 L (4.0-11.0) 10^3/uL Hgb 8.3 L 8.3 L (12.0-16.0) g/dL Hct 25.7 L 26.2 L (36.0-48.0) % Plt Count 38 L 32 L (150-450) 10^3/uL BMP 01/05/24 01/06/24 14:52 04:00 Sodium 144 141 Potassium 4.5 4.2 Chloride 114 H 112 H Carbon Dioxide 23.4 21.2 BUN 26.0 H 28.0 H Creatinine 1.23 H 1.30 H Glucose 129 H 133 H Calcium 9.0 9.1 Liver Function 01/05/24 01/06/24 Range/Units 14:52 04:00 Total Bilirubin 1.0 1.3 H (0.2-1.0) mg/dL AST 32 34 (15-37) U/L ALT 23 26 (14-59) U/L Alkaline Phosphatase 131 H 134 H (46-116) U/L Albumin 2.8 L 2.8 L (3.4-5.0) g/dL Urine 01/05/24 Range/Units 15:05 Urine Color Yellow (YELLOW) Urine Clarity Clear (CLEAR) Urine pH 6.5 (5.0-9.0) Ur Specific [place] 1.020 (1.005-1.025) Urine Protein Negative (NEG/TRACE) mg/dL Urine Glucose (UA) Negative (NEGATIVE) mg/dL Progress Note: A&P Assessment and Plan (1) Hyperammonemia: (2) Altered mental status: (3) Pancytopenia: (4) GERD (gastroesophageal reflux disease): Qualifiers: Esophagitis presence: without esophagitis Qualified Code(s): K21.9 - Gastro-esophageal reflux disease without esophagitis (5) Hepatic failure: Plan Admission findings: Altered mental status secondary to hyperammonemia with a level of 188, secondary to 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 Still has significantly elevated ammonia but much improved from previous day under 100. Continue with current treatment plan. Hopefully she can be more awake and can advance her diet Sepsis due to E. coli and Enterobacter-start current antibiotics. Check on urine culture. UA was negative. Does have a slight cough but nonproductive Pancytopenia-this has been worked up in the past. Will monitor daily Acute kidney injury with a baseline creatinine of 1 and admission creatinine of 1.23 so 123% above baseline., IV fluids-somewhat worse today, fluid bolus secondary to the sepsis as outlined above Moderate protein calorie malnutrition-May try supplementation, concern for diarrhea with the higher dose of the lactulose. Depression and anxiety-continue with home medications when she is able to s wallow GERD-IV Protonix Pbdtvueehypezc-kgcvuzjgbw-eshm off on supplementation his magnesium is elevated today Admission status: Patient with significant altered mental status in severely high ammonia level, medically necessary treatment will span more than 2 midnights. Inpatient status. ?
--- NOTE | 2024-01-06 10:45 | CM.NOTE ---
Rounds made with Dr. Skinner. Dr. Skinner reviewed labs and plan of care pee [place]. No discharge today
[2024-01-06] MEDS: URSODIOL 300 MG CAPSULE PO ×2 (11:34→20:22)
[2024-01-06] MEDS: MIDODRINE HCL 5 MG TABLET 10 MG PO ×2 (11:34→18:40)
[2024-01-06] MEDS: CETIRIZINE HCL 10 MG TABLET PO (11:34)
[2024-01-06] MEDS: POTASSIUM CHLORIDE 10 MEQ ER TABLET 20 MEQ PO (11:35)
[2024-01-06] MEDS: LEVOFLOXACIN IN DEXTROSE 5 % 750 MG/150 ML IV.SOLN 100 MG IV (12:05)
[2024-01-06] MEDS: FERROUS SULFATE 325 MG TABLET PO ×2 (12:08→20:22)
[2024-01-06 12:58] LABS: IMP NOT DETECTED (NOT DETECTE); KPC NOT DETECTED (NOT DETECTE); NDM NOT DETECTED (NOT DETECTE); OXA-48-like NOT DETECTED (NOT DETECTE); mcr-1 NOT DETECTED (NOT DETECTE)
[2024-01-06 12:59] LABS: VIM NOT DETECTED (NOT DETECTE)
--- NOTE | 2024-01-06 13:52 | SWNOTE1 ---
Nursing in ICU asking to see if we can get ahold of pt's to get consent. SHORTY checked the number listed and attempted to call, but it was a female and had no idea who Derik was. SHORTY called over to Amanda at [facility] and they had same number and they stated the DON can give consent if that is something that is allowed. SW to speak with our director. Amanda from [facility] called back and they were able to track down Derik's number. SHORTY called and spoke with , Derik. His plan is for pt to return to [facility] at discharge. He voiced he did not know pt was at hospital. SHORTY was back in ICU and offered to have nurse speak with pt's .
[2024-01-06 18:31] LABS: Glucometer 117 mg/dL (74-106)
[2024-01-06] MEDS: ZINC OXIDE 30% CREAM 113.4 GM TUBE 1 APPLIC TOPICAL (18:41)
[2024-01-06] MEDS: PANTOPRAZOLE SODIUM 40 MG VIAL IV (20:21)
[2024-01-06] MEDS: MIRTAZAPINE 15 MG TABLET 7.5 MG PO (20:22)
[2024-01-06] MEDS: TRAZODONE HCL 50 MG TABLET PO (20:22)
[2024-01-06] MEDS: SERTRALINE HCL 50 MG TABLET 12.5 MG PO (20:22)
[2024-01-06 21:23] LABS: Glucometer 94 mg/dL (74-106)
[2024-01-07] VITALS (39 sets, daily range): BP systolic 94–133; BP diastolic 55–78; PULSE 60–77; TEMP 36.5–37; O2SAT 94–99
[2024-01-07 03:45] LABS: Basophils Percent Auto 0.5 % (0.2-2.0); Hemoglobin 7.3 g/dL (12.0-16.0); Lymphocytes Absolute Auto 0.8 10^3/uL (1.2-3.8); Lymphocytes Percent Auto 39.4 % (20.5-60.0); Mean Corpuscular HGB Conc 32.3 g/dL (29.9-35.2); Mean Corpuscular Volume 111.3 fL (81.0-99.0); Mean Platelet Volume 10.9 fL (9.5-13.5); Monocytes Absolute Auto 0.2 10^3/uL (0.3-0.8); Monocytes Percent Auto 10.6 % (1.7-12.0); Neutrophils Absolute Auto 0.9 10^3/uL (1.4-6.5); Neutrophils Percent Auto 47.5 % (43.0-75.0); Red Blood Count 2.03 10^6/uL (4.20-5.40); Red Cell Distribution Width 15.8 % (11.0-15.0)
[2024-01-07 03:53] LABS: Hematocrit 22.6 % (36.0-48.0); Platelet Count 28 10^3/uL (150-450)
[2024-01-07 04:02] LABS: Alanine Aminotransferase 17 U/L (14-59); Albumin Globulin Ratio 0.6; Albumin Level 2.4 g/dL (3.4-5.0); Alkaline Phosphatase 115 U/L (46-116); Anion Gap 14.3; Aspartate Amino Transferase 25 U/L (15-37); BUN Creatinine Ratio 13.9; Bilirubin Total 1.3 mg/dL (0.2-1.0); Calcium 8.7 mg/dL (8.5-10.1); Carbon Dioxide 18.4 mmol/L (21.0-32.0); Chloride 115 mmol/L (98-107); Estimated GFR (African America 53 (>=60); Estimated GFR (Non-African Ame 44 (>=60); Globulin 4.2 g/dL; Glucose 99 mg/dL (74-106); Magnesium 1.9 mg/dL (1.8-2.4); Potassium 3.7 mmol/L (3.5-5.1); Sodium 144 mmol/L (136-145); Total Protein 6.6 g/dL (6.4-8.2)
[2024-01-07 04:04] LABS: Ammonia 54 umol/L (11-32)
[2024-01-07] MEDS: RIFAXIMIN 550 MG TABLET PO ×3 (06:57→21:10)
[2024-01-07] MEDS: IMIPENEM/CILASTATIN SODIUM 500 MG in 0.9 % SODIUM CHLORIDE 100 ML 100 MG IV ×3 (06:57→21:19)
[2024-01-07] MEDS: LACTULOSE 10 GM/15 ML (237ML) SOLUTION 30 GM PO (06:58)
[2024-01-07 08:19] LABS: Glucometer 101 mg/dL (74-106)
[2024-01-07] MEDS: MIDODRINE HCL 5 MG TABLET 10 MG PO ×3 (08:58→17:34)
[2024-01-07] MEDS: URSODIOL 300 MG CAPSULE PO ×2 (08:58→21:09)
[2024-01-07 08:59] LABS: Internal Control Within Normal Limits; Occult Blood Negative
[2024-01-07] MEDS: CETIRIZINE HCL 10 MG TABLET PO (08:59)
[2024-01-07] MEDS: FERROUS SULFATE 325 MG TABLET PO ×3 (08:59→21:09)
[2024-01-07] MEDS: LACTATED RINGER'S SOLUTION 1,000 ML 100 ML IV (08:59)
[2024-01-07] MEDS: POTASSIUM CHLORIDE 10 MEQ ER TABLET 20 MEQ PO (08:59)
--- NOTE | 2024-01-07 09:23 | P.PN_ITS ---
Progress Note: Subjective Subjective Interval history: Much more awake and alert this point. NG tube has been removed. Patient states she is hungry. Exam Constitutional Vital Signs, click to edit/add: Last Vital Signs Temp 98.3 F 01/07/24 05:00 Pulse 68 01/07/24 06:23 Resp 18 01/07/24 05:00 BP 98/69 01/07/24 08:58 Pulse Ox 96 01/07/24 05:00 O2 Del Method Room Air 01/07/24 05:00 Documenting provider has reviewed patient's vital signs: yes Common normals: no apparent distress Respiratory Common normals: normal respiratory effort, no retractions and clear to auscultation bilaterally Effort & inspection: decreased respiratory effort Cardio Common normals: regular rate, regular rhythm and no murmurs GI Common normals: Normal to inspection, nondistended, normoactive bowel sounds present, soft to palpation and non-tender (Not sure if it is reliable based on her level of mentation) Neuro Common normals: oriented x3, CN's II-XII intact bilaterally, moves all extremities and no focal motor deficits Progress Note: Objective Labs Labs: Short CBC 01/07/24 Range/Units 03:35 WBC 2.0 L (4.0-11.0) 10^3/uL Hgb 7.3 L (12.0-16.0) g/dL Hct 22.6 L* (36.0-48.0) % Plt Count 28 L* (150-450) 10^3/uL BMP 01/07/24 03:35 Sodium 144 Potassium 3.7 Chloride 115 H Carbon Dioxide 18.4 L BUN 17.0 Creatinine 1.22 H Glucose 99 Calcium 8.7 Liver Function 01/07/24 Range/Units 03:35 Total Bilirubin 1.3 H (0.2-1.0) mg/dL AST 25 (15-37) U/L ALT 17 (14-59) U/L Alkaline Phosphatase 115 (46-116) U/L Albumin 2.4 L (3.4-5.0) g/dL Progress Note: A&P Assessment and Plan (1) Hyperammonemia: (2) Altered mental status: (3) Pancytopenia: (4) GERD (gastroesophageal reflux disease): Qualifiers: Esophagitis presence: without esophagitis Qualified Code(s): K21.9 - Gastro-esophageal reflux disease without esophagitis (5) Hepatic failure: Plan Admission findings: Altered mental status secondary to hyperammonemia with a level of 188, secondary to 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 Continues to drop, will cut back on dose of the lactulose, maintain Xifaxan Sepsis due to E. coli and Enterobacter-start current antibiotics. Check on urine culture. UA was negative. Check on final blood culture results today or tomorrow. Maintain current antibiotics Pancytopenia-this has been worked up in the past. Will monitor daily-stable Acute kidney injury with a baseline creatinine of 1 and admission creatinine of 1.23 so 123% above baseline., Improved somewhat today. Moderate protein calorie malnutrition-May try supplementation, concern for diarrhea with the higher dose of the lactulose. Depression and anxiety-continue with home medications when she is able to swallow GERD-IV Protonix Nopbeowshjsgrem-acngbhhrfe-befg off on supplementation normal today. Admission status: Patient with significant altered mental status in severely high ammonia level, medically necessary treatment will span more than 2 midnights. Inpatient status. ?
[2024-01-07] MEDS: ACETAMINOPHEN 325 MG TABLET 650 MG PO (10:33)
--- NOTE | 2024-01-07 11:12 | CM.NOTE ---
Rounds made with Dr. Skinner. Dr. Skinner reviewed labs and plan of care with [place]. Discussed awaiting culture results and possible med changes. Plan to advance diet today. No discharge today.
[2024-01-07 11:28] LABS: Glucometer 170 mg/dL (74-106)
[2024-01-07] MEDS: INSULIN ASPART 300 UNIT/3 ML PEN SUBQ ×2 (11:54→21:14)
--- NOTE | 2024-01-07 12:15 | SWNOTE1 ---
No discharge today, SW to get packet ready for the weekend.
[2024-01-07 15:53] LABS: Hemoglobin 8.4 g/dL (12.0-16.0)
--- NOTE | 2024-01-07 15:55 | PT.DAILY ---
Physical Therapy Daily Note PT Daily Note/Assess Start: 01/06/24 11:27 Freq: Status: Active Protocol: Document 01/07/24 15:53 DM (Rec: 01/07/24 15:55 DM [id number]) Visit Not Completed Visit Not Completed Visit Not Completed Due to: Nursing request to hold Other Reason Visit Not Completed Patient was on hold in AM due to having consistent BM's unable to even make it commode . Checked back in PM, patient was able to participate with OT, but now is sleeping. Nursing reports that BM's are still pretty consistent and wishes that patient remain undisturbed at this time. Physical Therapy Daily Note/Assessment Time In/Time Out Time In 15:30 Time Out 15:30 GG. Functional Abilities and Goals-Complete for Swing Bed Patients Only [id number]. Self-Care [id number]. Mobility
[2024-01-07 17:35] LABS: Glucometer 158 mg/dL (74-106)
[2024-01-07 20:19] LABS: Glucometer 211 mg/dL (74-106)
--- NOTE | 2024-01-07 20:29 | PC.NURSE ---
smear of BM
[2024-01-07] MEDS: LACTULOSE 10 GM/15 ML UD CUP 15 GM PO (21:09)
[2024-01-07] MEDS: MIRTAZAPINE 15 MG TABLET 7.5 MG PO (21:10)
[2024-01-07] MEDS: TRAZODONE HCL 50 MG TABLET PO (21:10)
[2024-01-07] MEDS: SERTRALINE HCL 50 MG TABLET 12.5 MG PO (21:10)
[2024-01-07] MEDS: PANTOPRAZOLE SODIUM 40 MG VIAL IV (21:22)
[2024-01-08] VITALS (12 sets, daily range): BP systolic 93–100; BP diastolic 48–54; PULSE 57–81; TEMP 36.6–36.9; O2SAT 94–96
[2024-01-08] MEDS: IMIPENEM/CILASTATIN SODIUM 500 MG in 0.9 % SODIUM CHLORIDE 100 ML 100 MG IV (06:15)
[2024-01-08] MEDS: RIFAXIMIN 550 MG TABLET PO ×2 (06:16→13:00)
[2024-01-08] MEDS: FERROUS SULFATE 325 MG TABLET PO ×2 (06:16→13:00)
[2024-01-08 06:49] LABS: Basophils Percent Auto 0.6 % (0.2-2.0); Eosinophils Absolute Auto 0.1 10^3/uL (0.0-0.7); Eosinophils Percent Auto 4.5 % (0.9-7.0); Hemoglobin 8.3 g/dL (12.0-16.0); Immature Granulocytes Abs Auto 0.02 10^3/uL (0.00-0.03); Immature Granulocytes Pct Auto 1.1 % (0.0-0.5); Lymphocytes Absolute Auto 0.6 10^3/uL (1.2-3.8); Lymphocytes Percent Auto 35.2 % (20.5-60.0); Mean Corpuscular HGB Conc 33.2 g/dL (29.9-35.2); Mean Corpuscular Hemoglobin 34.7 pg (26.7-34.0); Mean Corpuscular Volume 104.6 fL (81.0-99.0); Mean Platelet Volume 10.9 fL (9.5-13.5); Monocytes Absolute Auto 0.2 10^3/uL (0.3-0.8); Monocytes Percent Auto 11.7 % (1.7-12.0); Neutrophils Absolute Auto 0.8 10^3/uL (1.4-6.5); Neutrophils Percent Auto 46.9 % (43.0-75.0); Red Blood Count 2.39 10^6/uL (4.20-5.40); Red Cell Distribution Width 16.7 % (11.0-15.0); White Blood Count 1.8 10^3/uL (4.0-11.0)
[2024-01-08 06:55] LABS: Platelet Count 29 10^3/uL (150-450)
[2024-01-08 07:05] LABS: Alanine Aminotransferase 19 U/L (14-59); Albumin Globulin Ratio 0.6; Albumin Level 2.3 g/dL (3.4-5.0); Alkaline Phosphatase 104 U/L (46-116); Anion Gap 11.9; Aspartate Amino Transferase 27 U/L (15-37); BUN Creatinine Ratio 19.8; Bilirubin Total 1.8 mg/dL (0.2-1.0); Calcium 8.1 mg/dL (8.5-10.1); Carbon Dioxide 21.1 mmol/L (21.0-32.0); Chloride 113 mmol/L (98-107); Estimated GFR (African America >60 (>=60); Estimated GFR (Non-African Ame 55 (>=60); Glucose 88 mg/dL (74-106); Sodium 142 mmol/L (136-145); Total Protein 6.3 g/dL (6.4-8.2)
[2024-01-08 07:24] LABS: Glucometer 96 mg/dL (74-106)
[2024-01-08 07:35] LABS: Ammonia 52 umol/L (11-32)
[2024-01-08] MEDS: LACTULOSE 10 GM/15 ML UD CUP 15 GM PO (09:08)
[2024-01-08] MEDS: CETIRIZINE HCL 10 MG TABLET PO (09:08)
[2024-01-08] MEDS: POTASSIUM CHLORIDE 10 MEQ ER TABLET 20 MEQ PO (09:08)
[2024-01-08] MEDS: URSODIOL 300 MG CAPSULE PO (09:08)
[2024-01-08] MEDS: LEVOFLOXACIN IN DEXTROSE 5 % 750 MG/150 ML IV.SOLN 100 MG IV (10:07)
--- NOTE | 2024-01-08 10:08 | PT.DAILY ---
Physical Therapy Daily Note PT Daily Note/Assess Start: 01/06/24 11:27 Freq: Status: Active Protocol: Document 01/08/24 09:59 [id number] (Rec: 01/08/24 10:08 [id number] Laptop) Physical Therapy Daily Note/Assessment Time In/Time Out Time In 08:47 Time Out 09:00 Pain In Pain Level 0 Pain Out Pain Level 0 Subjective Subjective Patient agreeable to participate with physical therapy, declines sitting in chair because she will not be able to see the TV. Bed alarm dis-engaged prior to treatment . Therapeutic Exercise Time Therapeutic Exercise Minutes (minutes) 8 Therapeutic Exercise Units 1 Therapeutic Exercise Treatment Therapeutic Exercise Treatment Patient performed JIMENEZ LE ther ex seated EOB at 10 reps for: ankle/heel raises, LAQ's, hip flexion, resisted hip ABD/ADD to increase strength for functional mobility and ADL's. VC's on how to perform each ther ex. Therapeutic Activity Time Therapeutic Activity Minutes (minutes) 5 Therapeutic Activity Units 1 Therapeutic Activity Treatment Bed Mobility Ability Minimum Assist Therapeutic Activity Comments Patient sat EOB without UE support for 3 minutes, no sway observed. Does have kyphotic posture which patient is able to correct with VC's but does not maintain. Sit to stand transfer MIN A with use of JIMENEZ UE to push off bed. Patient performed 4 lateral steps to L for repositioning in bed. sit to supine with use of bed rail with CGA. Bed alarm re- engaged and CBWR. Total Physical Therapy Time Total Therapy Minutes 13 Total Physical Therapy Units 2 Summary Daily Note Summary Patient with improved bed mobility and transfers requiring decreased assistance . Patient presents with flexed posture during sitting and standing. Bed alarm re- engaged and CBWR. medical assistant internal medicine inquired how patient did, provided improved mobility today. Requested nursing staff to encourage patient to sit in chair later today. States they will try.
--- NOTE | 2024-01-08 12:57 | PM.DS1 ---
DS: Providers Provider Date of admission: 01/05/24 17:13 Primary care physician: NAMAN CARBAJAL Consults: 01/05/24 Consult to Dietitian Routine Reason for consultation: Decrease in appetitte Has provider been notified: Yes 01/05/24 17:58 Occupational Therapy Eval and Treat Routine Reason for consultation: Only if needed for Rehab Has provider been notified: No Physical Therapy Eval and Treat Routine Reason for consultation: Eval and Treat Has provider been notified: No 01/06/24 09:40 Consult to PICC Line RN Routine Consulting Provider: Angus Skinner Reason for consultation: Emergency need for PICC line due to sepsis with ecoli and enterobacter Has provider been notified: No DS: Diagnosis Discharge Diagnosis (1) Hepatic encephalopathy: Assessment and plan: Chronically elevated ammonia. Improved. Patient more or less back to her baseline mental status. Continue with lactulose and Xifaxan. (2) Hyperammonemia: Assessment and plan: Improved. Continue lactulose and Xifaxan. (3) Altered mental status: Assessment and plan: Back to her baseline. Altered mental status secondary to hepatic encephalopathy Qualifiers: Altered mental status type: somnolence Qualified Code(s): R40.0 - Somnolence (4) E coli bacteremia: Assessment and plan: Multidrug-resistant E. coli that is resistant to more or less all first line antibiotic therapy. Likely ESBL producing E. coli. Will discharge on IV Invanz 1 g daily for 10 days. Repeat blood cultures ordered today will need to follow-up to ensure resolution of her bacteremia (5) Pancytopenia: Assessment and plan: Chronic/unchanged/due to autoimmune hepatitis and liver cirrhosis. Monitor. (6) GERD (gastroesophageal reflux disease): Assessment and plan: Continue with Protonix. Qualifiers: Esophagitis presence: without esophagitis Qualified Code(s): K21.9 - Gastro-esophageal reflux disease without esophagitis (7) Protein calorie malnutrition: Assessment and plan: Severe protein caloric malnutrition with BMI of 19, loss of muscle mass, chronic illness and repeated hospital admissions. Qualifiers: Protein-calorie malnutrition severity: severe Qualified Code(s): E43 - Unspecified severe protein-calorie malnutrition (8) Cirrhosis of liver: Assessment and plan: Due to autoimmune hepatitis. Outpatient follow-up Qualifiers: Hepatic cirrhosis type: other cirrhosis Qualified Code(s): K74.69 - Other cirrhosis of liver (9) Autoimmune hepatitis: Assessment and plan: Outpatient follow-up (10) Depression: Assessment and plan: Stable mood. Continue with home meds Qualifiers: Depression Type: major depressive disorder Major depression recurrence: recurrent Active/Remission status: in full remission Qualified Code(s): F33.42 - Major depressive disorder, recurrent, in full remission DS: Summary Hospital Course Hospital Course: 68-year-old female presented to the hospital with increasing confusion/somnolence with prior history of liver cirrhosis and recurrent hepatic encephalopathy. She was admitted for hepatic encephalopathy and started on oral lactulose. Her Xifaxan was continued. Patient's ammonia improved with improvement in her mental status. Blood cultures drawn on admission are positive for E. coli that is multidrug-resistant and only sensitive to carbapenems for which patient was started on IV Invanz. Repeat blood culture obtained on 01/08/2024 that needs to be followed up as outpatient. She will receive IV Invanz for a total of 10 days. Patient medically stable for discharge. She was educated on worrisome signs and symptoms that should prompt her to seek medical care. Status at Discharge Overall status at discharge: patient is back to baseline Time Spent with Patient Time attestation: Total time spent providing and/or coordinating discharge services: Time spent: greater than 30 minutes Exam Constitutional Vital Signs, click to edit/add: Last Vital Signs Temp 98 F 01/08/24 07:25 Pulse 81 01/08/24 12:00 Resp 18 01/08/24 07:25 BP 100/54 01/08/24 07:25 Pulse Ox 96 01/08/24 12:06 O2 Del Method Room Air 01/08/24 12:06 Documenting provider has reviewed patient's vital signs: yes General appearance: cooperative, ill appearing and frail appearing Nutritional appearance: cachectic HENMT Common normals: normocephalic and head/scalp atraumatic Other: Bitemporal wasting Respiratory Common normals: normal respiratory effort and no use of accessory muscles Effort & inspection: able to speak in complete sentences Cardio Common normals: regular rate, regular rhythm, S1 normal heart sound and S2 normal heart sound GI Common normals: Normal to inspection, nondistended, normoactive bowel sounds present, soft to palpation, non-tender and no hepatosplenomegaly Extremity Common normals: normal to inspection and full ROM Neuro Common normals: oriented x3, moves all extremities, no focal motor deficits and no sensory deficits noted Psych Common normals: cooperative, denies homicidal ideation and denies suicidal ideation DS: Data Data Completed and Pending Labs on day of discharge: Labs from last 24 hours 01/08/24 01/08/24 01/07/24 07:23 06:00 20:18 WBC 1.8 L RBC 2.39 L Hgb 8.3 L Hct 25.0 L MCV 104.6 H MCH 34.7 H MCHC 33.2 RDW 16.7 H Plt Count 29 L* MPV 10.9 Neut % (Auto) 46.9 Lymph % (Auto) 35.2 [place] % (Auto) 11.7 Eos % (Auto) 4.5 Baso % (Auto) 0.6 Neut # (Auto) 0.8 L Lymph # (Auto) 0.6 L [place] # (Auto) 0.2 L Eos # (Auto) 0.1 Baso # (Auto) 0.0 Abs Immat Gran (auto) 0.02 Imm/Tot Granulo (auto) 1.1 H Sodium 142 Potassium 4.0 Chloride 113 H Carbon Dioxide 21.1 Anion Gap 11.9 BUN 20.0 H Creatinine 1.01 Est GFR ( Amer) >60 Est GFR (Non-Af Amer) 55 L BUN/Creatinine Ratio 19.8 Glucose 88 Calcium 8.1 L Magnesium 2.0 Total Bilirubin 1.8 H AST 27 ALT 19 Alkaline Phosphatase 104 Ammonia 52 H* Total Protein 6.3 L Albumin 2.3 L Globulin 4.0 Albumin/Globulin Ratio 0.6 POC Glucose 96 211 H Crossmatch 01/07/24 01/07/24 01/07/24 17:33 15:48 08:23 WBC RBC Hgb 8.4 L Hct 26.0 L MCV MCH MCHC RDW Plt Count MPV Neut % (Auto) Lymph % (Auto) [place] % (Auto) Eos % (Auto) Baso % (Auto) Neut # (Auto) Lymph # (Auto) [place] # (Auto) Eos # (Auto) Baso # (Auto) Abs Immat Gran (auto) Imm/Tot Granulo (auto) Sodium Potassium Chloride Carbon Dioxide Anion Gap BUN Creatinine Est GFR ( Amer) Est GFR (Non-Af Amer) BUN/Creatinine Ratio Glucose Calcium Magnesium Total Bilirubin AST ALT Alkaline Phosphatase Ammonia Total Protein Albumin Globulin Albumin/Globulin Ratio POC Glucose 158 H Crossmatch See Detail Preliminary micro results at discharge 01/05/24 14:52 - Preliminary Blood Escherichia coli Discharge Plan Discharge Disposition: Xfer SNF Condition: Good Discharge Medications: New ertapenem 1 gram recon soln 1 g IV DAILY 9 Days Qty: 9 0RF Continued albuterol sulfate 90 mcg/actuation HFA aerosol inhaler 2 puff INHALATION Q4H PRN (Reason: shortness of breath or wheezing) fluticasone propionate 50 mcg/actuation spray,suspension 1 spray INTRANASAL DAILY PRN (Reason: allergy symptoms) loratadine 10 mg tablet,chewable 10 mg PO DAILY midodrine 10 mg tablet 10 mg PO TIDWM Rx Instructions: at AM afternoon and HS polyethylene glycol 3350 [ClearLax] 17 gram/dose powder 17 g PO DAILY PRN (Reason: constipation) potassium chloride [Klor-Con 10] 10 mEq tablet extended release 20 meq PO DAILY Xifaxan 550 mg tablet 550 mg PO BID sertraline 25 mg tablet 12.5 mg PO Q24H Rx Instructions: at HS ursodiol 250 mg tablet 250 mg PO Q12H docusate sodium 100 mg capsule 100 mg PO DAILY magnesium oxide 400 mg magnesium tablet 400 mg PO DAILY acetaminophen 325 mg tablet 650 mg PO Q6H PRN (Reason: fever or pain) cholecalciferol (vitamin D3) [Weekly-D] 1,250 mcg (50,000 unit) capsule 1,250 mcg PO QWEEK Rx Instructions: ON WEDNESDAY pantoprazole [Protonix] 40 mg tablet,delayed release (DR/EC) 40 mg PO DAILY trazodone 50 mg tablet 50 mg PO .QHS mirtazapine [Remeron] 15 mg tablet 7.5 mg PO .QHS Changed lactulose [Enulose] 10 gram/15 mL solution 20 g PO TID Qty: 0 0RF Rx Instructions: at HS and AM Print Language: Macedonian Forms: Portal Instructions Follow Up Appointments: PCP in one week
[2024-01-08] MEDS: ERTAPENEM SODIUM 1 GM in 0.9 % SODIUM CHLORIDE 50 ML IV (13:01)
--- NOTE | 2024-01-08 14:38 | PC.NURSE ---
Report called to nick at [place] regarding discharge
== END 2024-01-08 14:52 | DRG 720 ==
LOC: ER 16:44 → ICU 17:19 → MS 01-07 18:56
PROVIDERS: Physician Assistant; Admitting Provider Family Medicine; Emergency Provider Emergency Medicine; PCP Internal Medicine; Visit Provider Internal Medicine
DX: A41.51 Sepsis due to Escherichia coli [E. coli] (principal); K76.82 Hepatic encephalopathy; K72.90 Hepatic failure, unspecified without coma; E72.20 Disorder of urea cycle metabolism, unspecified; D61.818 Other pancytopenia; D89.89 Other specified disorders involving the immune mechanism, not elsewhere classified; N17.9 Acute kidney failure, unspecified; E43 Unspecified severe protein-calorie malnutrition; K75.4 Autoimmune hepatitis; F33.42 Major depressive disorder, recurrent, in full remission; F41.9 Anxiety disorder, unspecified; K21.9 Gastro-esophageal reflux disease without esophagitis; E55.9 Vitamin D deficiency, unspecified; K74.69 Other cirrhosis of liver; E78.5 Hyperlipidemia, unspecified; J44.9 Chronic obstructive pulmonary disease, unspecified; E83.42 Hypomagnesemia; R64 Cachexia; Z68.1 Body mass index [BMI] 19.9 or less, adult; Z90.710 Acquired absence of both cervix and uterus; Z90.49 Acquired absence of other specified parts of digestive tract; Z98.890 Other specified postprocedural states; Z87.891 Personal history of nicotine dependence; Z79.899 Other long term (current) drug therapy
CPT/HCPCS: 36415; 36430; 36569; 36592; 70450; 71045; 80053; 81001; 82140; 82800; 82948; 83605; 83735; 83880; 84145; 84443; 84484; 85007; 85014; 85018; 85025; 85027; 85610; 86850; 86900; 86901; 86923; 87040; 87070; 87086; 87150; 87186; 93005; 94667; 94668; 94761; 96361; 96365; 96366; 96367; 96368; 96375; 96376; 97110; 97161; 97165; 97530; 97535; 99285; C1887; G0328; J0743; J1335; P9016

== ENCOUNTER 2024-01-19 18:34 | Emergency (ER) | payer MEDICAID, SELFPAY ==
[2024-01-19 18:40] VITALS: BP 133/58; PULSE 60; TEMP 36.6; O2SAT 98; BMI 19.0
--- NOTE | 2024-01-19 19:18 | CT_ITS ---
[address] [address] Patient Name: LANEY LARIOS MRN: [id number] date: 1955 Sex: F Assigned Patient Location: ER Current Patient Location: [facility] Accession/Order Number: [id number] Exam Date: 01/19/2024 19:26 Report Date: 01/19/2024 19:44 At the request of: JESUS JJ Procedure: CT head/brain wo con EXAM: CT cervical spine wo con, CT head/brain wo con CLINICAL INDICATION: fall, head injury COMPARISON: None TECHNIQUE: Unenhanced computerized tomography of the head was performed. Automated dose reduction technique was employed. Multiple axial slices of the cervical spine were obtained without contrast and with coronal and sagittal reformatted images. FINDINGS: The ventricles are normal in size, configuration, and position for age. There is no intra- or extra-axial mass, hemorrhage, or fluid collection. No areas of abnormal mass effect or attenuation are noted. There is mild to moderate subcortical, deep, and periventricular white matter low-attenuation, compatible with changes of chronic small vessel ischemic disease. Visualized paranasal sinuses are free of mucosal disease. No depressed calvarial fracture. Vertebral height and alignment is preserved. No acute fracture or subluxation. The atlanto occipital joint is maintained. The odontoid and lateral masses are intact. Mild multilevel degenerative changes of the cervical spine2. The prevertebral soft tissues are within normal limits. The adjacent structures appear intact. The visualized soft tissues of the neck are normal. CT/CT head/brain wo con IMPRESSION: 1. No acute intracranial abnormality noted. 2. No acute fracture or subluxation of the cervical spine. Multilevel degenerative changes of the cervical spine. Electronically authenticated by: ROSA MARIA REDDY Date: 01/19/2024 19:44
--- NOTE | 2024-01-19 19:18 | CT_ITS ---
[address] [address] Patient Name: LANEY LARIOS MRN: [id number] date: 1955 Sex: F Assigned Patient Location: ER Current Patient Location: [facility] Accession/Order Number: [id number] Exam Date: 01/19/2024 19:26 Report Date: 01/19/2024 19:44 At the request of: JESUS JJ Procedure: CT cervical spine wo con EXAM: CT cervical spine wo con, CT head/brain wo con CLINICAL INDICATION: fall, head injury COMPARISON: None TECHNIQUE: Unenhanced computerized tomography of the head was performed. Automated dose reduction technique was employed. Multiple axial slices of the cervical spine were obtained without contrast and with coronal and sagittal reformatted images. FINDINGS: The ventricles are normal in size, configuration, and position for age. There is no intra- or extra-axial mass, hemorrhage, or fluid collection. No areas of abnormal mass effect or attenuation are noted. There is mild to moderate subcortical, deep, and periventricular white matter low-attenuation, compatible with changes of chronic small vessel ischemic disease. Visualized paranasal sinuses are free of mucosal disease. No depressed calvarial fracture. Vertebral height and alignment is preserved. No acute fracture or subluxation. The atlanto occipital joint is maintained. The odontoid and lateral masses are intact. Mild multilevel degenerative changes of the cervical spine2. The prevertebral soft tissues are within normal limits. The adjacent structures appear intact. The visualized soft tissues of the neck are normal. CT/CT cervical spine wo con IMPRESSION: 1. No acute intracranial abnormality noted. 2. No acute fracture or subluxation of the cervical spine. Multilevel degenerative changes of the cervical spine. Electronically authenticated by: ROSA MARIA REDDY Date: 01/19/2024 19:44
--- NOTE | 2024-01-19 19:21 | ED_ITS ---
HPI HPI - Head Injury General Chief complaint: Head Injury Stated complaint: Fall Time Seen by Provider: 01/19/24 18:56 Source: patient Mode of arrival: ambulance Limitations: no limitations History of Present Illness HPI Narrative: This 68-year-old female was brought to the emergency department by EMS from the [facility] where she currently resides after she fell in her room. The patient states her legs gave out from underneath her and she hit the back of her head on her tray table. She denies any loss of consciousness. She has no neck pain. She has no focal weakness numbness or tingling. She is moving all extremities. She has an approximately 0.5 cm laceration to the left lateral occipital region of her scalp. She also has a small abrasion to the left pinna of her ear. She denies any neck or back pain. She is not on blood thinners. Related Data Home Medications ?Medication ?Instructions ?Recorded ?Confirmed albuterol sulfate 90 mcg/actuation 2 puff inhalation Q4H PRN 05/20/23 01/05/24 aerosol inhaler shortness of breath or wheezing docusate sodium 100 mg capsule 100 mg PO DAILY 05/20/23 01/05/24 fluticasone propionate 50 1 spray intranasal DAILY PRN 05/20/23 01/05/24 mcg/actuation nasal allergy symptoms spray,suspension loratadine 10 mg chewable tablet 10 mg PO DAILY 05/20/23 01/05/24 midodrine 10 mg tablet 10 mg PO TIDWM 05/20/23 01/05/24 polyethylene glycol 3350 17 17 g PO DAILY PRN constipation 05/20/23 01/05/24 gram/dose oral powder (ClearLax) potassium chloride 10 mEq 20 meq PO DAILY 05/20/23 01/05/24 tablet,extended release (Klor-Con) rifaximin 550 mg tablet (Xifaxan) 550 mg PO BID 05/20/23 01/05/24 sertraline 25 mg tablet 12.5 mg PO Q24H 05/20/23 01/05/24 ursodiol 250 mg tablet 250 mg PO Q12H 05/20/23 01/05/24 acetaminophen 325 mg tablet 650 mg PO Q6H PRN fever or pain 08/04/23 01/05/24 cholecalciferol (vitamin D3) 1,250 1,250 mcg PO QWEEK 08/04/23 01/05/24 mcg (50,000 unit) capsule (Weekly-D) magnesium oxide 400 mg PO DAILY 08/04/23 01/05/24 pantoprazole 40 mg tablet,delayed 40 mg PO DAILY 08/04/23 01/05/24 release (Protonix) trazodone 50 mg tablet 50 mg PO .QHS 08/04/23 01/05/24 mirtazapine 15 mg tablet (Remeron) 7.5 mg PO .QHS 11/15/23 01/05/24 Previous Rx's ?Medication ?Instructions ?Recorded ertapenem 1 gram solution for 1 g IV DAILY 9 days #9 ea 01/08/24 injection lactulose 10 gram/15 mL oral 20 g (30 mL) PO TID #0 mL 01/08/24 solution (Enulose) Allergies Allergy/AdvReac Type Severity Reaction Status Date / Time No Known Drug Allergies Allergy Verified 05/20/23 18:30 Opioid HPI Opioid Management Most Recent Pain and Opioid Data: Last Pain Scale 5 01/19/24 19:57 Last Pain Intensity 0 01/08/24 09:59 Last MAR Pain Assessment 01/19/24 19:57 Last ORT Total Score 1 01/05/24 17:28 Last ORT Risk Category Low Risk 01/05/24 17:28 Review of Systems ROS Narrative Vital signs and Nursing Notes reviewed: Patient is afebrile with a normal pulse, normal blood pressure, she is not hypoxic with pulse ox of 98% on room air General: Thin, alert, oriented elderly female, GCS 15, no respiratory distress HEENT: Normocephalic atraumatic, mucous membranes are moist and pink, eyes are clear, normal conjunctiva, vision is grossly intact, patient is edentulous. No oral trauma noted, there is a small abrasion to the pinna on the left ear, no hemotympanum noted, there is a large amount of cerumen noted in the external ear canal Neck: Supple, no meningeal signs, no midline bony vertebral tenderness or step- off Chest: Lungs are clear to auscultation with good air entry, there is no wheezing rhonchi or rales appreciated no accessory muscle use, patient is speaking in complete sentences-no chest wall tenderness to palpation CVS: Regular rate and rhythm S1-S2, no murmurs rubs or gallops, pulses are brisk and equal bilaterally ABD: Soft, nondistended, nontender, no rebound guarding or rigidity, bowel sounds are normal, no pulsatile masses appreciated Extremities: Moving all extremities, no lower extremity tenderness or swelling noted, negative Homans' sign, pulses are brisk and equal bilaterally Skin: Normal in appearance without rash,pallor, petechiae or purpura Neuro: No focal deficits, speech is clear, 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 coli] as the cause of diseases classified elsewhere (ICD-10) Hyperammonemia ?E72.20 - Disorder of urea cycle metabolism, unspecified (ICD-10) Chronic hypotension ?I95.89 - Other hypotension (ICD-10) Pancytopenia ?D61.818 - Other pancytopenia (ICD-10) GERD (gastroesophageal reflux disease) ?K21.9 - Gastro-esophageal reflux disease without esophagitis (ICD-10) Hypotension ?I95.9 - Hypotension, unspecified (ICD-10) Protein calorie malnutrition ?E46 - Unspecified protein-calorie malnutrition (ICD-10) Vitamin D deficiency ?E55.9 - Vitamin D deficiency, unspecified (ICD-10) Dry eye syndrome ?H04.129 - Dry eye syndrome of unspecified lacrimal gland (ICD-10) Hernia ?K46.9 - Unspecified abdominal hernia without obstruction or gangrene (ICD- 10) Hyperglycemia ?R73.9 - Hyperglycemia, unspecified (ICD-10) Hyperlipemia ?E78.5 - Hyperlipidemia, unspecified (ICD-10) Hepatic failure ?K72.90 - Hepatic failure, unspecified without coma (ICD-10) Cirrhosis of liver ?K74.60 - Unspecified cirrhosis of liver (ICD-10) Dysthymic disorder ?F34.1 - Dysthymic disorder (ICD-10) Depression ?F32.A - Depression, unspecified (ICD-10) COPD (chronic obstructive pulmonary disease) ?J44.9 - Chronic obstructive pulmonary disease, unspecified (ICD-10) Autoimmune hepatitis ?K75.4 - Autoimmune hepatitis (ICD-10) Surgical History (Updated 08/04/23 @ 11:58 by Jennifer Esteban) H/O: hysterectomy ?Z90.710 - Acquired absence of both cervix and uterus (ICD-10) History of cholecystectomy ?Z90.49 - Acquired absence of other specified parts of digestive tract (ICD- 10) Previous back surgery ?Z98.890 - Other specified postprocedural states (ICD-10) Family History (Updated 08/04/23 @ 12:00 by Jennifer Esteban) Other Family history not known due to adoption Social History Within the past year, how often did you have a drink containing alcohol: never Within the past year, how often did you have six or more drinks on one occasion: never Score interpretation: A score less than 3 is consistent with normal alcohol consumption. Smoking status: Former smoker Non-prescribed substance use: denies use Previous occupational history: retired Known occupational exposures/hazards: No Highest level of school completed/degree received: decline to answer Do you want help with school or training: No Are you now , , , , never or living with a partner: never Little interest or pleasure in doing things: not at all Feeling down, depressed, or hopeless: not at all Feel stressed/tense/nervous/anxious/difficulty sleeping: not at all Do you think of yourself as: straight/heterosexual Gender Identity: female Exam Narrative Exam Narrative: Vital signs and Nursing Notes reviewed: Vital signs are stable General: Awake, alert, oriented, no acute distress, lying comfortably on the stretcher, GCS 15 HEENT: Normocephalic, there is a 1 cm laceration at the left posterior parietal aspect of the scalp with some mild local bruising and swelling. No step-off appreciated, there is a superficial abrasion to the pinna of the left ear. No additional injuries noted. Neck: Supple, no midline bony vertebral tenderness or step-off Chest: Lungs are clear to auscultation with good air entry, there is no wheezing rhonchi or rales appreciated no accessory muscle use, patient is speaking in complete sentences-no chest wall tenderness to palpation CVS: Regular rate and rhythm S1-S2, no murmurs rubs or gallops, pulses are brisk and equal bilaterally ABD: Soft, nondistended, nontender, no rebound guarding or rigidity, bowel sounds are normal, no pulsatile masses appreciated Extremities: Moving all extremities, no lower extremity tenderness or swelling noted, scattered areas of ecchymosis on both forearms Skin: Normal in appearance without rash,pallor, petechiae or purpura Neuro: No focal deficits, speech is clear, upper and lower extremity strength and sensation is intact, there is no facial droop Constitutional Vital Signs, click to edit/add: Last Vital Signs Temp 97.8 F 01/19/24 18:40 Pulse 60 01/19/24 18:40 Resp 18 01/19/24 18:40 BP 133/58 01/19/24 18:40 Pulse Ox 98 01/19/24 18:40 O2 Del Method Room Air 01/19/24 18:40 Course Vital Signs Vital signs: Vital Signs Temperature 97.8 F 01/19/24 18:40 Pulse Rate 60 01/19/24 18:40 Respiratory Rate 18 01/19/24 18:40 Blood Pressure 133/58 01/19/24 18:40 Pulse Oximetry 98 01/19/24 18:40 Oxygen Delivery Method Room Air 01/19/24 18:40 Temperature 97.8 F 01/19/24 18:40 Pulse Rate 60 01/19/24 18:40 Respiratory Rate 18 01/19/24 18:40 Blood Pressure 133/58 01/19/24 18:40 Pulse Oximetry 98 01/19/24 18:40 Oxygen Delivery Method Room Air 01/19/24 18:40 MDM - Head Injury MDM Narrative Medical decision making narrative: Procedure note: Scalp laceration repair; the laceration site was cleaned with Hibiclens and water. The wound edges were infiltrated with 1% lidocaine, when anesthesia was obtained 3 lisa were placed into the laceration site with good wound edge approximation. Patient tolerated procedure well This 68-year-old female was transferred from the [facility] care facility where she currently resides after she had a fall. The patient states her legs gave out from under her and she struck her head on her food tray. She denies loss of consciousness. Her neuroexam is normal. She has no neck tenderness. She is not on any blood thinners. She did sustain an approximately 1 cm laceration to the lateral aspect of her posterior parietal aspect of her scalp. CT scan of t he brain and cervical spine was ordered and is negative for acute findings. The laceration was closed with lisa. The patient was medicated with Tylenol. She has remained neurologically stable and comfortable in the emergency department and is anxious to be discharged home. Medical Records Medical records narrative: The [address] [address] [address] Scan Report Signed Patient: LANEY LARIOS MR#: [id number] : 1955 Acct:[id number] Age/Sex: 68 / F ADM Date: 01/19/24 Loc: ER Attending Dr: Ordering Physician: Jana Nickerson Date of Service: 01/19/24 Procedure(s): CT cervical spine wo con Accession Number(s): [id number] cc: NAMAN CARBAJAL ~ The [address] [address] Patient Name: LANEY LARIOS MRN: [id number] date: 1955 Sex: F Assigned Patient Location: ER Current Patient Location: ED.MAIN Accession/Order Number: [id number] Exam Date: 01/19/2024 19:26 Report Date: 01/19/2024 19:44 At the request of: JANA NICKERSON Procedure: CT cervical spine wo con EXAM: CT cervical spine wo con, CT head/brain wo con CLINICAL INDICATION: fall, head injury COMPARISON: None TECHNIQUE: Unenhanced computerized tomography of the head was performed. Automated dose reduction technique was employed. Multiple axial slices of the cervical spine were obtained without contrast and with coronal and sagittal reformatted images. FINDINGS: The ventricles are normal in size, configuration, and position for age. There is no intra- or extra-axial mass, hemorrhage, or fluid collection. No areas of abnormal mass effect or attenuation are noted. There is mild to moderate subcortical, deep, and periventricular white matter low-attenuation, compatible with changes of chronic small vessel ischemic disease. Visualized paranasal sinuses are free of mucosal disease. No depressed calvarial fracture. Vertebral height and alignment is preserved. No acute fracture or subluxation. The atlanto occipital joint is maintained. The odontoid and lateral masses are intact. Mild multilevel degenerative changes of the cervical spine2. The prevertebral soft tissues are within normal limits. The adjacent structures appear intact. The visualized soft tissues of the neck are normal. CT/CT cervical spine wo con IMPRESSION: 1. No acute intracranial abnormality noted. 2. No acute fracture or subluxation of the cervical spine. Multilevel degenerative changes of the cervical spine. Electronically authenticated by: ROSA MARIA REDDY Date: 01/19/2024 19:44 Discharge Plan Discharge Stand Alone Forms: Portal Instructions Chief Complaint: Head Injury Clinical Impression: Closed head injury, Laceration of scalp Patient Disposition: Home, Self-Care Time of Disposition Decision: 20:06 Condition: Good Prescriptions / Home Meds: No Action albuterol sulfate 90 mcg/actuation HFA aerosol inhaler 2 puff INHALATION Q4H PRN (Reason: shortness of breath or wheezing) fluticasone propionate 50 mcg/actuation spray,suspension 1 spray INTRANASAL DAILY PRN (Reason: allergy symptoms) loratadine 10 mg tablet,chewable 10 mg PO DAILY midodrine 10 mg tablet 10 mg PO TIDWM Rx Instructions: at AM afternoon and HS polyethylene glycol 3350 [ClearLax] 17 gram/dose powder 17 g PO DAILY PRN (Reason: constipation) potassium chloride [Klor-Con 10] 10 mEq tablet extended release 20 meq PO DAILY Xifaxan 550 mg tablet 550 mg PO BID sertraline 25 mg tablet 12.5 mg PO Q24H Rx Instructions: at HS ursodiol 250 mg tablet 250 mg PO Q12H docusate sodium 100 mg capsule 100 mg PO DAILY ertapenem 1 gram recon soln 1 g IV DAILY 9 Days Qty: 9 0RF lactulose [Enulose] 10 gram/15 mL solution 20 g PO TID Qty: 0 0RF Rx Instructions: at HS and AM magnesium oxide 400 mg magnesium tablet 400 mg PO DAILY acetaminophen 325 mg tablet 650 mg PO Q6H PRN (Reason: fever or pain) cholecalciferol (vitamin D3) [Weekly-D] 1,250 mcg (50,000 unit) capsule 1,250 mcg PO QWEEK Rx Instructions: ON WEDNESDAY pantoprazole [Protonix] 40 mg tablet,delayed release (DR/EC) 40 mg PO DAILY trazodone 50 mg tablet 50 mg PO .QHS mirtazapine [Remeron] 15 mg tablet 7.5 mg PO .QHS Print Language: Danish Instructions: Laceration (ED), Fall Prevention for Older Adults (ED), Staple Care (ED) Additional Instructions: [place] can be removed in 5-7 days Referrals: NAMAN CARBAJAL [Primary Care Provider] - 1 week
[2024-01-19] MEDS: ACETAMINOPHEN 325 MG TABLET 650 MG PO (19:57)
[2024-01-19 21:58] VITALS: PULSE 68; O2SAT 96
[2024-01-20] VITALS: BP 99/70; PULSE 52; O2SAT 96
== END 2024-01-20 | disposition home or self-care (01) ==
PROVIDERS: Emergency Provider Emergency Medicine; PCP Internal Medicine
DX: S01.01XA Laceration without foreign body of scalp, initial encounter (principal); S09.8XXA Other specified injuries of head, initial encounter; W18.30XA Fall on same level, unspecified, initial encounter; Z87.891 Personal history of nicotine dependence
CPT/HCPCS: 12001; 70450; 72125; 99284

== ENCOUNTER 2024-03-18 16:04 | Observation (INO) | payer MEDICAID, SELFPAY ==
[2024-03-18] VITALS (11 sets, daily range): BP systolic 111–122; BP diastolic 62–71; PULSE 64–70; TEMP 36.2–36.6; O2SAT 83–100; BMI 18.1; BMI 18.4
--- OUTSIDE RECORDS SUMMARY | 2024-03-18 16:15 | XMS_ITS | CCD ---
Author Organization [employer] ion [facility] Care Team Providers Care Community Development Specialist Name Role Phone KEKE, MICHAEL BRYAN Unavailable Unavailable PEÑA, YOUNG AR Unavailable Unavailable KEKE, MICHAEL BRYAN Unavailable Unavailable PEÑA, YOUNG AR Unavailable Unavailable FANNING, CAESAR E Unavailable Unavailable FANNING, CAESAR E Unavailable Unavailable Peña, Young Mi Unavailable PEÑA, YOUNG AR Unavailable Unavailable NO, PHYSICIAN Unavailable Unavailable PEÑA, YOUNG AR Unavailable Unavailable NO, PHYSICIAN Unavailable Unavailable PEÑA, YOUNG AR Unavailable Unavailable PEÑA, YOUNG AR Unavailable Unavailable PEÑA, YOUNG AR Unavailable Unavailable PEÑA, YOUNG AR Unavailable Unavailable PEÑA, YOUNG AR Unavailable Unavailable YOANA BARR Unavailable Unavailable PEÑA, YOUNG AR Unavailable Unavailable KEKE, MCIHAEL BRYAN Unavailable Unavailable KEKE, MICHAEL BRYAN Unavailable Unavailable PEÑA, YOUNG AR Unavailable Unavailable KEKE, MICHAEL BRYAN Unavailable Unavailable KEKE, MICHAEL BRYAN Unavailable Unavailable PEÑA, YOUNG AR Unavailable Unavailable KEKE, MICHAEL BRYAN Unavailable Unavailable YOANA SANTORO P Unavailable Unavailable KEKE, MICHAEL BRYAN Unavailable Unavailable PEÑA, YOUNG AR Unavailable Unavailable PEÑA, YOUNG AR Unavailable Unavailable DEL CHRISTIANSON Unavailable Unavailable Peña, [...] LUCAS Attending Unavailable JULIANO LUCAS Admitting Unavailable WAYLON CAVAZOS Attending Unavailable ADE TAN Referring Unavailable LAY, SHO Attending Unavailable LAY, SHO Attending Unavailable LAY, SHO Attending Unavailable LAY, SHO Attending Unavailable KAMILAH, ADE Admitting Unavailable KAMILAH, ADE Attending Unavailable LAY, SHO Referring Unavailable HEMANT, MARVIN Attending Unavailable HEMANT, WONG Referring Unavailable LÓPEZ, ALBERTO N Primary Care Unavailable NAMAN CARBAJAL Referring Unavailable LÓPEZ, ALBERTO Nubia Primary Care Unavailable HEMANT, WONG Referring Unavailable LÓPEZ, ALBERTO N Primary Care Unavailable LÓPEZ, ALBERTO N Referring Unavailable LÓPEZ, ALBERTO N Primary Care Unavailable HEMANT, MARVIN Attending Unavailable HEMANT, WONG Referring Unavailable LÓPEZ, ALBERTO N Primary Care Unavailable NAMAN CARBAJAL Referring Unavailable LÓPEZ, ALBERTO N Primary Care Unavailable HEMANT, MARVIN Attending Unavailable HEMANT, WONG Referring Unavailable LÓPEZ, ALBERTO N Primary Care Unavailable SHO MILLER Referring Unavailable LÓPEZ, ALBERTO N Primary Care Unavailable HEMANT, WONG Referring Unavailable LÓPEZ, ALBERTO N Primary Care Unavailable LÓPEZ, ALBERTO N Referring Unavailable LÓPEZ, ALBERTO N Primary Care Unavailable Medications Current Medications [...] 06-24-2017 Chronic Other aftercare (1 source) 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; 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] Onset: 09-08-2021 Episodic Other [...] Ammonia (P) [Moles/Vol] 157 umol/L High 11-35 [facility] Comment on above: Performed By: #### 1 6362-6 #### [facility] ([id number]) [address] [place] [address], [place] [address] Documentationon 11-29-2023 Documentation [id number] Laney Larios 1955 F Date Provider Department Center 11/29/2023 SHO MARAVILLA [facility] Family History Problem Relation Age of Onset Colon cancer Neg Hx Family Status - Relation Status Age at Neg Hx Normal [facility] Telemedicineon 11-29-2023 Telemedicine [id number] Laney Larios 1955 F Date Provider Department Center 11/29/2023 SHO MARAVILLA [facility] Family History Problem Relation Age of Onset Colon cancer Neg Hx Family Status - Relation Status Age at Neg Hx Level of Service:53943 DE OFFICE/OUTPT VISIT,PROCEDURE ONLY Reason for Visit and Comments: Cirrhosis [239] Normal [facility] CBC AND AUTO DIFFon 09-29-19 24 Eosinophils (Bld) [#/Vol] 0.1 10*3/uL Normal 0.0-0.4 [facility] Comment on above: Performed By: #### C BCA #### [facility] ([id number]) [address] [place] [address] 14334 Eosinophils/100 WBC (Bld) 3.0 % Normal [facility] Comment on above: Performed By: #### C BCA #### [facility] ([id number]) [address] [place] [address] 55713 Erythrocyte distribution width (RBC) [Ratio] 17.3 % High 11.5-15.0 [facility] Comment on above: Performed By: #### C BCA #### [facility] ([id number]) [address] [place] [address] 90707 Hematocrit (Bld) [Volume fraction] 24.5 % Low 35-47 [facility] Comment on above: Performed By: #### C BCA #### [facility] ([id number]) [address] [place] [address] 28211 Hemoglobin (Bld) [Mass/Vol] 8.4 g/dL Low 11.7-15.5 [facility] Comment on above: Performed By: #### C BCA #### [facility] ([id number]) [address] [place] [address] 98781 IMMATURE MONONUCLEAR 1.0 % Normal [facility] Comment on above: Performed By: #### C BCA #### [facility] ([id number]) [address] [place] [address] 44973 LYMPHOCYTE, ATYPICAL 5.0 % Normal [facility] Comment on above: Performed By: #### C BCA #### [facility] ([id number]) [address] [place] [address] 62271 Lymphocytes (Bld) [#/Vol] 0.4 10*3/uL Low 1.0-3.5 [facility] Comment on above: Performed By: #### C BCA #### [facility] ([id number]) [address] [place] [address] 52720 Lymphocytes/100 WBC (Bld) 18.0 % Normal [facility] Comment on above: Performed By: #### C BCA #### [facility] ([id number]) [address] [place] [address] 42221 MCH (RBC) [Entitic mass] 35.7 pg High 27-34 [facility] Comment on above: Performed By: #### C BCA #### [facility] ([id number]) [address] [place] [address] 29539 MCHC (RBC) [Mass/Vol] 34.5 g/dL Normal 32-36 [facility] Comment on above: Performed By: #### C BCA #### [facility] ([id number]) [address] [place] [address] 60530 MCV (RBC) [Entitic vol] 104 fL High 80-100 [facility] Comment on above: Performed By: #### C BCA #### [facility] ([id number]) [address] [place] [address] 47581 Monocytes (Bld) [#/Vol] 0.2 10*3/uL Normal 0-0.9 [facility] Comment on above: Performed By: #### C BCA #### [facility] ([id number]) [address] [place] [address] 02454 Monocytes/100 WBC (Bld) 9.0 % Normal [facility] Comment on above: Performed By: #### C BCA #### [facility] ([id number]) [address] [place] [address] 77462 Neutrophils (Bld) [#/Vol] 1.2 10*3/uL Low 1.5-6.6 [facility] Comment on above: Performed By: #### C BCA #### [facility] ([id number]) [address] [place] [address] 59157 Platelet mean volume (Bld) [Entitic vol] 9.7 fL Normal 7-12 [facility] Comment on above: Performed By: #### C BCA #### [facility] ([id number]) [address] [place] [address] 72904 Platelets (Bld) [#/Vol] 30 10*3/uL Low 150-450 [facility] Comment on above: Result Comment: PLAT ELETS REVIEWED Performed By: #### C BCA #### [facility] ([id number]) [address] [place] [address] 92227 RBC COUNT 2.37 X10E12/L Low 3.80-5.20 [facility] Comment on above: Performed By: #### C BCA #### [facility] ([id number]) [address] [place] [address] 09647 RBC morphology finding Nom (Bld) REVIEWED Normal [facility] Comment on above: Performed By: #### C BCA #### [facility] ([id number]) [address] [place] [address] 79981 SEG NEUTROPHIL 64.0 % Normal [facility] Comment on above: Performed By: #### C BCA #### [facility] ([id number]) [address] [place] [address] [place] [address] WBC (Bld) [#/Vol] 1.9 10*3/uL Low 4.0-11.0 [facility] Comment on above: Performed By: #### C BCA #### [facility] ([id number]) [address] [place] [address], [place] [address] CBC WITH AUTO DIFFERENTIALon 09-28-2023 Erythrocyte distribution width (RBC) [Ratio] 17.2 % High 11.5-15.0 [facility] Comment on above: Performed By: #### L [id number] #### [facility] [address] [place] [address] ERYTHROCYTE MEAN CORPUSCULAR HEMOGLOBIN CONCENTRATION (G/DL) BY AUTOMATED 34.0 g/dL Normal 32.0-35.0 [facility] Comment on above: Performed By: #### L [id number] #### [facility] [address] [place] [address] Hematocrit (Bld) [Volume fraction] 25.6 % Low 36.0-48.0 [facility] Comment on above: Performed By: #### L [id number] #### [facility] [address] [place] [address] Hemoglobin (Bld) [Mass/Vol] 8.7 g/dL Low 12.0-15.0 [facility] Comment on above: Performed By: #### L [id number] #### [facility] (BEAKER) [address] [place] [address] IMMATURE PLATELET FRACTION % 3.5 % Normal 0.8-6.3 [facility] Comment on above: Performed By: #### L [id number] #### [facility] ([facility]) [address] [place] [address] MCH (RBC) [Entitic mass] 36.0 pg High 27.0-33.0 [facility] Comment on above: Performed By: #### L [id number] #### [facility] ([facility]) [address] [place] [address] MCV (RBC) [Entitic vol] 105.8 fL High 82.0-98.0 [facility] Comment on above: Performed By: #### L [id number] #### [facility] ([facility]) [address] [place] [address] NRBC (PER 100 WBCS) BY AUTOMATED COUNT 0.0 % Normal 0 [facility] Comment on above: Performed By: #### L [id number] #### [facility] ([facility]) [address] [place] [address] PLATELETS (10*3/UL) IN BLOOD AUTOMATED COUNT 44 10*3/uL Low 150-400 [facility] Comment on above: Performed By: #### L [id number] #### [facility] ([facility]) [address] [place] [address] RBC (Bld) [#/Vol] 2.42 10*6/uL Low 3.80-5.00 [facility] Comment on above: Performed By: #### L [id number] #### [facility] ([facility]) [address] [place] [address] WBC (Bld) [#/Vol] 1.79 10*3/uL Low 4.00-10.60 [facility] Comment on above: Performed By: #### L [id number] #### [facility] ([facility]) [address] [place] [address] MANUAL DIFFERENTIALon 2023 ANISOCYTOSIS PRESENCE IN BLOOD BY LIGHT MICROSCOPY Moderate Normal [facility] Comment on above: Performed By: #### L [id number] ####[facility] ([facility])[address] [place] [address] BASOPHILS (10*3/UL) IN BLOOD BY CALCULATION 0.00 10*3/uL Normal 0.00-0.20 [facility] Comment on above: Performed By: #### L [id number] ####[facility] ([facility])[address] [place] [address] BASOPHILS/100 LEUKOCYTES IN BLOOD BY AUTOMATED COUNT 0.0 % Normal 0.0-1.0 [facility] Comment on above: Performed By: #### L [id number] ####[facility] ([facility])[address] [place] [address] EOSINOPHILS (10*3/UL) IN BLOOD BY CALCULATION 0.07 10*3/uL Normal 0.00-0.50 [facility] Comment on above: Performed By: #### L [id number] ####[facility] ([facility])[address] [place] [address] EOSINOPHILS/100 LEUKOCYTES IN BLOOD BY AUTOMATED COUNT 4.0 % Normal 0.0-6.0 [facility] Comment on above: Performed By: #### L [id number] ####[facility] ([facility])[address] [place] [address] IMMATURE GRANULOCYTES (10*3/UL) IN BLOOD BY CALCULATION 0.00 10*3/uL Normal 0.00-0.20 [facility] Comment on above: Performed By: #### L [id number] ####[facility] ([facility])[address] [place] [address] IMMATURE GRANULOCYTES/100 LEUKOCYTES IN BLOOD BY AUTOMATED COUNT 0.0 % Normal 0.0-1.0 [facility] Comment on above: Performed By: #### L [id number] ####[facility] ([facility])[address] [place] [address] LYMPHOCYTES (10*3/UL) IN BLOOD BY CALCULATION 0.54 10*3/uL Low 1.20-4.00 [facility] Comment on above: Performed By: #### L [id number] ####[facility] ([facility])[address] [place] [address] LYMPHOCYTES/100 LEUKOCYTES IN BLOOD BY AUTOMATED COUNT 30.2 % Normal 20.0-45.0 [facility] Comment on above: Performed By: #### L [id number] ####[facility] ([facility])[address] [place] [address] MACROCYTES (PRESENCE) IN BLOOD BY LIGHT MICROSCOPY Slight Normal [facility] Comment on above: Performed By: #### L [id number] ####[facility] ([facility])[address] [place] [address] MONOCYTES (10*3/UL) IN BLOOD BY CALCUATION 0.12 10*3/uL Normal 0.10-1.00 [facility] Comment on above: Performed By: #### L [id number] ####[facility] ([facility])[address] [place] [address] MONOCYTES/100 LEUKOCYTES IN BLOOD BY AUTOMATED COUNT 6.7 % Normal 5.0-12.0 [facility] Comment on above: Performed By: #### L [id number] ####[facility] ([facility])[address] [place] [address] NEUTROPHILS (10*3/UL) IN BLOOD BY CALCULATION 1.1 10*3/uL Low 1.6-7.6 [facility] Comment on above: Performed By: #### L [id number] ####[facility] ([facility])[address] [place] [address] NEUTROPHILS/100 LEUKOCYTES IN BLOOD BY AUTOMATED COUNT 59.1 % Normal 40.0-72.0 [facility] Comment on above: Performed By: #### L [id number] ####[facility] ([facility])[address] [place] [address] PLASMA CELLS/100 LEUKOCYTES IN BLOOD 0 % Normal 0 [facility] Comment on above: Performed By: #### L [id number] ####[facility] ([facility])[address] [place] [address] PLATELETS GIANT PRESENCE IN BLOOD BY LIGHT MICROSCOPY Present Normal [facility] Comment on above: Performed By: #### L [id number] ####[facility] ([facility])[address] [place] [address] POIKILOCYTOSIS (PRESENCE) IN BLOOD BY LIGHT MICROSCOPY Slight Normal [facility] Comment on above: Performed By: #### L [id number] ####[facility] [place] [address] POLYCHROMASIA IN BLOOD BY LIGHT MICROSCOPY Slight Normal [facility] Comment on above: Performed By: #### L [id number] ####[facility] ([facility])[address] [facility] [place] [address] VARIANT LYMPHOCYTES (10*3/UL) IN BLOOD BY CALCULATION 0.00 10*3/uL Normal 0.00 [facility] Comment on above: Performed By: #### L [id number] ####[facility] ([facility])[address] [place] [address] VARIANT LYMPHOCYTES/100 LEUKOCYTES IN BLOOD CELLAVISION 0.0 % Normal 0.0-0.0 [facility] Comment on above: Performed By: #### L [id number] ####[facility] ([facility])[address] [place] [address] NURSNOTEon 09-28-2023 NURSGLADYS residential Karis harvey, picked up pt to take back to facility. [facility] ANTONIO Spoke with transport ation who will be taking pt back to facility and she is booked up until 3:00. The skilled nursing nurse director is coming to package pick up pt and eta is 1 hour from now. [facility] Orders Onlyon 09-28-2023 Orders Only [id number] Laney Larios 1955 F Date Provider Department Center 09/28/20232030YADY GIBSON [facility] [place] Family History Problem Relation Age of Onset Colon cancer Neg Hx Family Status - Relation Status Age at Neg Hx [facility] POCT GLUCOSE METER UNSOLICIT ED RESULTSon 09-28-2023 Glucose [Mass/Vol] 129 mg/dL High 70-105 [facility] Comment on above: Order Comment: Waive d Testing in the ED is performed under the ED CLIA certificate #[id number]. Result Comment: pbar retcorson Performed By: #### L [id number] ####[facility] ([facility])[address] [place] [address] PROTIME-INRon 09-28-2023 INR IN PPP BY COAGULATION ASSAY 1.13 High 0.90-1.10 [facility] Comment on above: Result Comment: [facility] P RECOMMENDED INR FOR WARFARIN THERAPY CONDITION [...] 1995;108:231S-246S. Performed By: #### L [id number] #### [facility] ([facility]) [address] [place] [address] PROTHROMBIN TIME (PT) IN PPP BY COAGULATION ASSAY 14.5 Seconds Normal 12.3-14.8 [facility] Comment on above: Performed By: #### L [id number] #### [facility] (AKER) [address] [place] [address] Orders Onlyon 09-22-2023 Orders Only [id number] Laney Larios 1955 F Date Provider Department Center 09/22/2023 CAESAR BRAGG [facility] [place] Family History Problem Relation Age of Onset Colon cancer Neg Hx Family Status - Relation Status Age at Neg Hx Normal [facility] Prep for Procedureon 09-20- 024 Prep for Procedure [id number] Lanye Larios 1955 F Date Provider Department Center 09/21/2023 SAMEERA VARELA [facility] [place] Family History Problem Relation Age of Onset Colon cancer Neg Hx Family Status - Relation Status Age at Neg Hx Normal [facility] MR MRCP WITH MRI ABD WO [...] Diane MD on 08/30/2023 9:42 AM Normal [facility] Office Visiton 08-17-2023 Follow-up visit [id number] Laney Larios 1955 F Date Provider Department Center 08/17/2023 SHO MARAVILLA [facility] Family History Problem Relation Age of Onset Colon cancer Neg Hx Family Status - Relation Status Age at Neg Hx Level of Service:65628 DE OFFICE/OUTPATIENT ESTABLISHED MOD MDM 30 MIN Normal [facility] Office Visiton 04-01-2023 Follow-up visit [id number] Laney Larios 1955 F Date Provider Department Center 04/01/2023 SHO MARAVILLA [facility] Family History Problem Relation Age of Onset Colon cancer Neg Hx Family Status - Relation Status Age at Neg Hx Level of Service:85183 DE OFFICE/OUTPATIENT ESTABLISHED MOD MDM 30-39 MIN Reason for Visit and Comments: Anemia [109209] autoummune Hepatitis [Other] Cirrhosis [239] Normal [facility] Office Visiton 12-31-2022 Follow-up visit [id number] Laney Larios 1955 F Date Provider Department Center 12/31/2022 SHO MARAVILLA [facility] [place] Family History Problem Relation Age of Onset Colon cancer Neg Hx Family Status - Relation Status Age at Neg Hx Level of Service:78039 DE OFFICE/OUTPATIENT ESTABLISHED HIGH MDM 40-54 MIN Reason for Visit and Comments: Follow-up [132608] - Pt here for follow up to labs and US. Normal [facility] HISTOLOGY - TISSUE EXAMon LAB AP CASE REPORT Normal [facility] Comment on above: Result Comment: Surg ical Pathology Case: [id number] Authorizing Provider: Waylon Cavazos MD Collected: 12/11/2022 1105 Ordering Location: [facility] Received: 12/11/2022 [facility] Endoscopy Pathologist: Neetu Fields MD Specimen: Small Intestine, Duodenum, duodenal lesion EMR r/o adenoma Performed By: #### L [id number] ####[facility] ([facility])[address] [place] [address] LAB AP CLINICAL INFORMATION Order Diagnoses Normal [facility] Comment on above: Result Comment: 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 [...] remaining sequential sections Performed By: #### L [id number] ####[facility] ([facility])[address] [place] [address] LAB AP MICROSCOPIC DESCRIPTION Microscopic examination performed. 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 - No malignancy or dysplasia identified Performed By: #### L [id number] ####[facility] ([facility])[address] [place] [address] HPon 12-11-2022 HP History Of Present I [...] MAC Attending Physician: Dr. Ade Tan MD Planing Machine Operator: Dr. Jorge Coelho MD Procedure Details: Informed [...] assess th (more content not included)... Normal [facility] POCT GLUCOSE METER UNSOLICIT ED RESULTSon 12-11-2022 Glucose [Mass/Vol] 123 mg/dL High 70-105 [facility] Comment on above: Result Comment: [place] Performed By: #### L [id number] #### [facility] ([facility]AKER) [address] [place] [address] CULTURE URINEon 09-04-2021 CULTURE URINE Isolate 1 [...] Trimethoprim/Sulfamethoxazol e <=20 S F Normal [facility] Comment on above: Performed By: #### C BC #### [facility] [address] [place] [address] Dr. Ronald Wong AMMONIAon 09-03-2021 Ammonia (P) [Moles/Vol] 28 umol/L Normal 10-30 [facility] Comment on above: Performed By: #### A MM #### [facility] [address] [place] [address] Dr. Ronald Wong CBC AUTO DIFFon 09-03-2021 BASO # 0.0 103/ul Normal 0.0-0.1 [facility] Comment on above: Performed By: #### C BC #### [facility] [address] [place] [address] Dr. Ronald Wong Basophils/100 WBC (Bld) 0.6 % Normal 0.2-2.0 [facility] Comment on above: Performed By: #### C BC #### [facility] [address] [place] [address] Dr. Ronald Wong EO # 0.1 103/ul Normal 0.0-0.7 [facility] Comment on above: Performed By: #### C BC #### [facility] [address] [place] [address] Dr. Ronald Wong Eosinophils/100 WBC (Bld) 3.3 % Normal 0.9-7.0 [facility] Comment on above: Performed By: #### C BC #### [facility] [address] [place] [address] Dr. Ronald Wong Erythrocyte distribution width (RBC) [Ratio] 15.2 % Critically high 11.0-15.0 [facility] Comment on above: Performed By: #### C BC #### [facility] [address] [address] [address] Ronald Wong Hematocrit (Bld) [Volume fraction] 25.2 % Critically low 36.0-48.0 [facility] Comment on above: Performed By: #### C BC #### [facility] [address] [address] [address] Ronald Wong Hemoglobin (Bld) [Mass/Vol] 8.4 g/dL Critically low 12.0-16.0 [facility] Comment on above: Performed By: #### C BC #### [facility] [address] [place] [address] Dr. Ronald Wong IG # 0.00 10e3/ul Normal 0.00-0.03 [facility] Comment on above: Performed By: #### C BC #### [facility] [address] [place] [address] Dr. Ronald Wong IG % 0.0 % Normal 0.0-0.5 [facility] Comment on above: Performed By: #### C BC #### [facility] [address] [place] [address] Dr. Ronald Wong LYMPH # 0.7 103/ul Critically low 1.2-3.8 [facility] [facility] Comment on above: Performed By: #### C BC #### [facility] [address] [place] [address] Dr. Ronald Wong Lymphocytes/100 WBC (Bld) 38.7 % Normal 20.5-60.0 [facility] Comment on above: Performed By: #### C BC #### [facility] [address] [place] [address] Dr. Ronald Wong MANUAL DIFF REQ NO Normal [facility] Comment on above: Performed By: #### C BC #### [facility] [address] [place] [address] Dr. Ronald Wong MCH (RBC) [Entitic mass] 38.5 pg Critically high 26.7-34.0 [facility] Comment on above: Performed By: #### C BC #### [facility] [address] [address] [address] Ronald Wong MCHC (RBC) [Mass/Vol] 33.3 g/dL Normal 29.9-35.2 [facility] Comment on above: Performed By: #### C BC #### [facility] [address] [address] [address] Ronald Wong MCV (RBC) [Entitic vol] 115.6 fL Critically high 81.0-99.0 [facility] Comment on above: Performed By: #### C BC #### [facility] [address] [place] [address] Dr. Ronald Wong MONO # 0.2 103/ul Critically low 0.3-0.8 [facility] Comment on above: Performed By: #### C BC #### [facility] [address] [place] [address] Dr. Ronald Wong Monocytes/100 WBC (Bld) 11.0 % Normal 1.7-12.0 [facility] Comment on above: Performed By: #### C BC #### [facility] [address] [place] [address] Dr. Ronald Wong NEUT # 0.8 103/ul Critically low 1.4-6.5 [facility] Comment on above: Performed By: #### C BC #### [facility] [address] [place] [address] Dr. Ronald Wong Neutrophils/100 WBC (Bld) 46.4 % Normal 43.0-75.0 [facility] Comment on above: Performed By: #### C BC #### [facility] [address] [place] [address] Dr. Ronald Wong Platelet mean volume (Bld) [Entitic vol] 11.6 fL Normal 9.5-13.5 [facility] Comment on above: Performed By: #### C BC #### [facility] [address] [place] [address] Dr. Ronald Wong PLT 64 103/ul Critically low 150-450 [facility] Comment on above: Performed By: #### C BC #### [facility] [address] [address] [address] Ronald Wong RBC 2.18 106/ul Critically low 4.20-5.40 [facility] Comment on above: Performed By: #### C BC #### [facility] [address] [address] [address] Ronald Wong WBC 1.8 103/ul Critically low 4.0-11.0 [facility] Comment on above: Performed By: #### C BC #### [facility] [address] [place] [address] Dr. Ronald Wong PROF 14(COMP METB)on 022 Albumin [Mass/Vol] 2.9 g/dL Critically low 3.5-5.0 [facility] Comment on above: Performed By: #### C JIMAN #### [facility] [address] [place] [address] Dr. Ronald Wong Albumin/Globulin [Mass ratio] 0.8 {ratio} [facility] Comment on above: Performed By: #### C JIMAN #### [facility] [address] [address] [address] Ronald Wong ALP [Catalytic activity/Vol] 89 U/L Normal 38-126 [facility] Comment on above: Performed By: #### C JIMAN #### [facility] [address] [place] [address] Dr. Ronald Wong ALT [Catalytic activity/Vol] 13 U/L Normal 9-52 [facility] Comment on above: Performed By: #### C BCMAN #### [facility] [address] [place] [address] Dr. Ronald Wong Anion gap [Moles/Vol] 9.5 mmol/L Normal [facility] Comment on above: Performed By: #### C JIMAN #### [facility] [address] [place] [address] Dr. Ronald Wong AST [Catalytic activity/Vol] 20 U/L Normal 14-36 [facility] Comment on above: Performed By: #### C BCMAN #### [facility] [address] [address] [address] Ronald Wong Bilirubin [Mass/Vol] 1.0 mg/dL Normal 0.2-1.3 [facility] Comment on above: Performed By: #### C BCMAN #### [facility] [address] [address] [address] Ronald Wong Calcium [Mass/Vol] 9.1 mg/dL Normal 8.4-10.2 [facility] Comment on above: Performed By: #### C BCMAN #### [facility] [address] [address] [address] Ronald Wong Chloride [Moles/Vol] 113 mmol/L Critically high 98-107 [facility] Comment on above: Performed By: #### C BCSISSY #### [facility] [address] [address] [address] Ronald Wong CO2 [Moles/Vol] 28.1 mmol/L Normal 22.0-30.0 [facility] Comment on above: Performed By: #### C BCSISSY #### [facility] [address] [address] [address] Ronald Wong Creatinine [Mass/Vol] 1.15 mg/dL Critically high 0.52-1.04 [facility] Comment on above: Performed By: #### C BCSISSY #### [facility] [address] [address] [address] Ronald Wong EGFR-AF BAHRAINI 57 mL/min/1.73m2 Critically low >=60 [facility] Comment on above: Performed By: #### C BCMAN #### [facility] [address] [address] [address] Ronald Wong EGFR-NON AF BAHRAINI 47 mL/min/1.73m2 Critically low >=60 [facility] Comment on above: Performed By: #### C BCMAN #### [facility] [address] [address] [address] Ronald Wong Globulin (S) [Mass/Vol] 3.6 g/dL Normal [facility] Comment on above: Performed By: #### C BCMAN #### [facility] [address] [address] [address] Ronald Wong Glucose [Mass/Vol] 92 mg/dL Normal 74-106 [facility] Comment on above: Performed By: #### C JIMAN #### [facility] [address] [address] [address] Ronald Wong Potassium [Moles/Vol] 3.6 mmol/L Normal 3.4-5.0 [facility] Comment on above: Performed By: #### C JIMAN #### [facility] [address] [address] [address] Ronald Wong Protein [Mass/Vol] 6.5 g/dL Normal 6.1-8.2 [facility] Comment on above: Performed By: #### C JIL #### [facility] [address] [place] [address] Dr. Ronald Wong Sodium [Moles/Vol] 147 mmol/L Critically high 137-145 [facility] Comment on above: Performed By: #### C JIL #### [facility] [address] [address] [address] Ronald Wong Urea nitrogen [Mass/Vol] 16.0 mg/dL Normal 7.0-17.0 [facility] Comment on above: Performed By: #### C JIL #### [facility] [address] [place] [address] Dr. Ronald Wong Urea nitrogen/Creatinin e [Mass ratio] 13.9 mg/mg Normal [facility] Comment on above: Performed By: #### C JIL #### [facility] [address] [address] [address] Ronald Wong AMMONIAon 09-02-2021 Ammonia (P) [Moles/Vol] 71 umol/L Critically high 10-30 [facility] Comment on above: Result Comment: test repeated Performed By: #### C BC #### [facility] [address] [place] [address] Dr. Ronald Wogn CBC AUTO DIFFon 09-02-2021 BASO # 0.0 103/ul Normal 0.0-0.1 [facility] Comment on above: Performed By: #### C BC #### [facility] [address] [place] [address] Dr. Ronald Wong Basophils/100 WBC (Bld) 0.0 % Critically low 0.2-2.0 [facility] Comment on above: Performed By: #### C BC #### [facility] [address] [place] [address] Dr. Ronald Wong EO # 0.0 103/ul Normal 0.0-0.7 [facility] Comment on above: Performed By: #### C BC #### [facility] [address] [place] [address] Dr. Ronald Wong Eosinophils/100 WBC (Bld) 3.1 % Normal 0.9-7.0 [facility] Comment on above: Performed By: #### C BC #### [facility] [address] [place] [address] Dr. Ronald Wong Erythrocyte distribution width (RBC) [Ratio] 15.1 % Critically high 11.0-15.0 [facility] Comment on above: Performed By: #### C BC #### [facility] [address] [place] [address] Dr. Ronald Wong Hematocrit (Bld) [Volume fraction] 24.5 % Critically low 36.0-48.0 [facility] Comment on above: Performed By: #### C BC #### [facility] [address] [place] [address] Dr. Ronald Wong Hemoglobin (Bld) [Mass/Vol] 8.0 g/dL Critically low 12.0-16.0 [facility] Comment on above: Performed By: #### C BC #### [facility] [address] [place] [address] Dr. Ronald Wong IG # 0.00 10e3/ul Normal 0.00-0.03 [facility] Comment on above: Performed By: #### C BC #### [facility] [address] [place] [address] Dr. Ronald Wong IG % 0.0 % Normal 0.0-0.5 [facility] Comment on above: Performed By: #### C BC #### [facility] [address] [address] [address] Ronald Wong LYMPH # 0.6 103/ul Critically low 1.2-3.8 [facility] Comment on above: Performed By: #### C BC #### [facility] [address] [address] [address] Ronald Wong Lymphocytes/100 WBC (Bld) 47.3 % Normal 20.5-60.0 [facility] Comment on above: Performed By: #### C BC #### [facility] [address] [place] [address] Dr. Ronald Wong MANUAL DIFF REQ NO Normal [facility] Comment on above: Performed By: #### C BC #### [facility] [address] [place] [address] Dr. Ronald Wong MCH (RBC) [Entitic mass] 38.6 pg Critically high 26.7-34.0 [facility] Comment on above: Performed By: #### C BC #### [facility] [address] [place] [address] Dr. Ronald Wong MCHC (RBC) [Mass/Vol] 32.7 g/dL Normal 29.9-35.2 [facility] Comment on above: Performed By: #### C BC #### [facility] [address] [place] [address] Dr. Ronald Wong MCV (RBC) [Entitic vol] 118.4 fL Critically high 81.0-99.0 [facility] Comment on above: Performed By: #### C BC #### [facility] [address] [place] [address] Dr. Ronald Wong MONO # 0.2 103/ul Critically low 0.3-0.8 [facility] Comment on above: Performed By: #### C BC #### [facility] [address] [address] [address] Ronald Wong Monocytes/100 WBC (Bld) 12.4 % Critically high 1.7-12.0 [facility] Comment on above: Performed By: #### C BC #### [facility] [address] [address] [address] Ronald Wong NEUT # 0.5 103/ul Critically low 1.4-6.5 [facility] Comment on above: Performed By: #### C BC #### [facility] [address] [address] [address] Ronald Wong Neutrophils/100 WBC (Bld) 37.2 % Critically low 43.0-75.0 [facility] Comment on above: Performed By: #### C BC #### [facility] [address] [place] [address] Dr. Ronald Wong Platelet mean volume (Bld) [Entitic vol] 10.3 fL Normal 9.5-13.5 [facility] Comment on above: Performed By: #### C BC #### [facility] [address] [place] [address] Dr. Ronald Wong PLT 38 103/ul Critically low 150-450 [facility] Comment on above: Performed By: #### C BC #### [facility] [address] [place] [address] Dr. Ronald Wong RBC 2.07 106/ul Critically low 4.20-5.40 [facility] Comment on above: Performed By: #### C BC #### [facility] [address] [place] [address] Dr. Ronald Wong WBC 1.5 103/ul Critically low 4.0-11.0 [facility] Comment on above: Performed By: #### C BC #### [facility] [address] [place] [address] Dr. Ronald Wong CULTURE BLOODon 09-02-2021 Microscopic examination of blood, culture Culture Observations: No growth at 5 days. Normal [facility] Comment on above: Performed By: #### C BC #### [facility] [address] [place] [address] Dr. Ronald Wong Microscopic examination of blood, culture Culture Observations: No growth at 5 days. Normal [facility] Comment on above: Performed By: #### C BC #### [facility] [address] [place] [address] Dr. Ronald Wong PROF 14(COMP METB)on 022 Albumin [Mass/Vol] 2.8 g/dL Critically low 3.5-5.0 [facility] Comment on above: Performed By: #### C MP #### [facility] [address] [place] [address] Dr. Ronald Wong Albumin/Globulin [Mass ratio] 0.8 {ratio} Normal [facility] Comment on above: Performed By: #### C MP #### [facility] [address] [place] [address] Dr. Ronald Wong ALP [Catalytic activity/Vol] 88 U/L Normal 38-126 [facility] Comment on above: Performed By: #### C MP #### [facility] [address] [place] [address] Dr. Ronald Wong ALT [Catalytic activity/Vol] 10 U/L Normal 9-52 [facility] Comment on above: Performed By: #### C MP #### [facility] [address] [place] [address] Dr. Ronald Wong Anion gap [Moles/Vol] 6.7 mmol/L Normal [facility] Comment on above: Performed By: #### C MP #### [facility] [address] [place] [address] Dr. Ronald Wong AST [Catalytic activity/Vol] 20 U/L Normal 14-36 [facility] Comment on above: Performed By: #### C MP #### [facility] [address] [place] [address] Dr. Ronald Wong Bilirubin [Mass/Vol] 1.3 mg/dL Normal 0.2-1.3 [facility] Comment on above: Performed By: #### C MP #### [facility] [address] [place] [address] Dr. Ronald Wong Calcium [Mass/Vol] 8.7 mg/dL Normal 8.4-10.2 [facility] Comment on above: Performed By: #### C MP #### [facility] [address] [address] [address] Ronald Wong Chloride [Moles/Vol] 111 mmol/L Critically high 98-107 [facility] Comment on above: Performed By: #### C MP #### [facility] [address] [address] [address] Ronald Wong CO2 [Moles/Vol] 30.5 mmol/L Critically high 22.0-30.0 [facility] Comment on above: Performed By: #### C MP #### [facility] [address] [address] [address] Ronald Wong Creatinine [Mass/Vol] 1.03 mg/dL Normal 0.52-1.04 [facility] Comment on above: Performed By: #### C MP #### [facility] [address] [address] [address] Ronald Wong EGFR-AF BAHRAINI >60 Normal >=60 [facility] Comment on above: Performed By: #### C MP #### [facility] [address] [address] [address] Ronald Wong EGFR-NON AF BAHRAINI 54 mL/min/1.73m2 Critically low >=60 [facility] Comment on above: Performed By: #### C MP #### [facility] [address] [address] [address] Ronald Wong Globulin (S) [Mass/Vol] 3.7 g/dL Normal [facility] Comment on above: Performed By: #### C MP #### [facility] [address] [address] [address] Ronald Wong Glucose [Mass/Vol] 103 mg/dL Normal 74-106 [facility] Comment on above: Performed By: #### C MP #### [facility] [address] [address] [address] Ronald Wong Potassium [Moles/Vol] 4.2 mmol/L Normal 3.4-5.0 [facility] Comment on above: Performed By: #### C MP #### [facility] [address] [address] [address] Ronald Wong Protein [Mass/Vol] 6.5 g/dL Normal 6.1-8.2 [facility] Comment on above: Performed By: #### C MP #### [facility] [address] [address] [address] Ronald Wong Sodium [Moles/Vol] 144 mmol/L Normal 137-145 [facility] Comment on above: Performed By: #### C MP #### [facility] [address] [place] [address] Dr. Ronald Wong Urea nitrogen [Mass/Vol] 17.0 mg/dL Normal 7.0-17.0 [facility] Comment on above: Performed By: #### C MP #### [facility] [address] [place] [address] Dr. Ronald Wong Urea nitrogen/Creatinin e [Mass ratio] 16.5 mg/mg Normal [facility] Comment on above: Performed By: #### C MP #### [facility] [address] [place] [address] Dr. Ronald Wong PROTIMEon 09-02-2021 INR Coag (PPP) [Relative time] 1.06 {INR} Normal [facility] Comment on above: Performed By: #### P TT, PT #### [facility] [address] [place] [address] Dr. Ronald Wong INR GUIDELINES SEE BELOW Normal [facility] Comment on above: Result Comment: HELADIO RED INR: 2.0 - 3.0 CONDITIONS NOT LISTED BELOW 2.5 - 3.5 FOR PROSTHETIC HEART VALVE REPLACEMENT 2.5 - 3.5 RECURRENT THROMBOSIS Performed By: #### P TT, PT #### [facility] [address] [place] [address] Dr. Ronald Wong PT Coag (PPP) [Time] 11.4 s Normal 9.0-11.6 [facility] Comment on above: Performed By: #### P TT, PT #### [facility] [address] [place] [address] Dr. Ronald Wong PTTon 09-02-2021 aPTT Coag (Bld) [Time] 24.3 s Normal 22.3-36.2 [facility] Comment on above: Performed By: #### P TT, PT #### [facility] [address] [address] [address] Ronald Wong US SINGLE QUAD RT [...] JAE VERA Date: 2021-09-02 12:20 Normal [facility] AMMONIAon 09-01-2021 Ammonia (P) [Moles/Vol] 107 umol/L Critically high 10-30 [facility] Comment on above: Result Comment: test repeated Performed By: #### A MM #### [facility] [address] [place] [address] Dr. Ronald Wong CARDIAC JACKIE ADMITon 022 CK [Catalytic activity/Vol] 35 U/L Normal 30-135 [facility] Comment on above: Performed By: #### C MADM #### [facility] [address] [place] [address] [address] [address] Ronald Wong CK.MB [Mass/Vol] 0.57 ng/mL Normal <=2.37 [facility] Comment on above: Performed By: #### C MADM #### [facility] [address] [place] [address] Dr. Ronald Wong HSTROP 5.7 pg/mL Normal 4.0-35.5 [facility] Comment on above: Result Comment: CUT- OFF POINTS HAVE BEEN ESTABLISHED BASED ON THE FOURTH UNIVERSAL DEFINITIONS OF MYOCARDIAL INFARCTION. THE UPPER REFERENCE LIMIT (URL) OF TROPONIN, DEFINED THE 99TH PERCENTILE OF cTnI DISTRIBUTION IN A REFERENCE POPULATION, HAS BEEN CONFIRMED THE DECISION THRESHOLD FOR AR DIAGNOSIS. Performed By: #### C TARA #### [facility] [address] [place] [address] Dr. Ronald Wong TAMI 35.0 ng/mL Normal <=61.5 [facility] Comment on above: Performed By: #### C TARA #### [facility] [address] [place] [address] Dr. Ronald Wong CBC W MANUAL DIFFon 09-01-19 22 ANISOCYTOSIS 1+ Normal [facility] Comment on above: Performed By: #### C JIL #### [facility] [address] [place] [address] Dr. Ronald Wong ATYPICAL LYMPH # Normal [facility] Comment on above: Performed By: #### C JIL #### [facility] [address] [place] [address] Dr. Ronald Wong ATYPICAL LYMPH % Normal [facility] Comment on above: Performed By: #### C JIL #### [facility] [address] [place] [address] Dr. Ronald Wong BAND # 0.0 103/ul Normal 0.0-0.3 [facility] Comment on above: Performed By: #### C JIL #### [facility] [address] [place] [address] Dr. Ronald Wong BAND % 2 % Normal 0-5 [facility] Comment on above: Performed By: #### C JIL #### [facility] [address] [place] [address] Dr. Ronald Wong BASOM # 0.00 103/ul Normal 0.00-0.10 [facility] Comment on above: Performed By: #### C JIL #### [facility] [address] [address] [address] Ronald Wong BASOM % 0.0 % Critically low 0.2-2.0 [facility] Comment on above: Performed By: #### C BCMAN #### [facility] [address] [address] [address] Ronald Wong BLAST # Normal [facility] Comment on above: Performed By: #### C BCMAN #### [facility] [address] [address] [address] Ronald Wong BLAST % Normal [facility] Comment on above: Performed By: #### C BCSISSY #### [facility] [address] [place] [address] Dr. Ronald Wong CORRECTED WBC Normal 4.0-11.0 [facility] Comment on above: Performed By: #### C BCSISSY #### [facility] [address] [place] [address] Dr. Ronald Wong EOS # 0.02 103/ul Normal 0.00-0.70 [facility] Comment on above: Performed By: #### C BCSISSY #### [facility] [address] [place] [address] Dr. Ronald Wong EOS% 1.0 % Normal 0.9-7.0 [facility] Comment on above: Performed By: #### C BCSISSY #### [facility] [address] [place] [address] Dr. Ronald Wong HCT 27.7 % Critically low 36.0-48.0 [facility] Comment on above: Performed By: #### C BCSISSY #### [facility] [address] [place] [address] Dr. Ronald Wong HGB 9.2 g/dl Critically low 12.0-16.0 [facility] Comment on above: Performed By: #### C BCMAN #### [facility] [address] [place] [address] Dr. Ronald Wong LYMPHM # 0.59 103/ul Critically low 1.20-3.80 [facility] Comment on above: Performed By: #### Wilda LEY #### [facility] [address] [address] [address] Ronald Wong LYMPHM% 37.0 % Normal 20.5-60.0 [facility] Comment on above: Performed By: #### C JIL #### [facility] [address] [address] [address] Ronald Wong MACROCYTOSIS 2+ Normal [facility] Comment on above: Performed By: #### C JIL #### [facility] [address] [address] [address] Ronald Wong MCH 38.8 pg Critically high 26.7-34.0 [facility] Comment on above: Performed By: #### C JIL #### [facility] [address] [address] [address] Ronald Wong MCHC 33.2 g/dl Normal 29.9-35.2 [facility] Comment on above: Performed By: #### Wilda LEY #### [facility] [address] [address] [address] Ronald Wong MCV 116.9 fL Critically high 81.0-99.0 [facility] Comment on above: Performed By: #### Wilda LEY #### [facility] [address] [place] [address] Dr. Ronald Wong METAMYELOCYTE # Normal [facility] Comment on above: Performed By: #### C JIL #### [facility] [address] [address] [address] Ronald Wong METAMYELOCYTE % Normal [facility] Comment on above: Performed By: #### C JIL #### [facility] [address] [address] [address] Ronald Wong MONOM# 0.13 103/ul Critically low 0.30-0.80 [facility] Comment on above: Performed By: #### C JIL #### [facility] [address] [address] [address] Ronald Wong MONOM% 8.0 % Normal 1.7-12.0 [facility] Comment on above: Performed By: #### C BCMAN #### [facility] [address] [address] [address] Ronald Wong MPV 10.6 fL Normal 9.5-13.5 [facility] Comment on above: Performed By: #### C BCSISSY #### [facility] [address] [address] [address] Ronald Wong MYELOCYTE # Normal [facility] Comment on above: Performed By: #### C BCMAN #### [facility] [address] [address] [address] Ronald Wong MYELOCYTE % Normal [facility] Comment on above: Performed By: #### C JIL #### [facility] [address] [place] [address] Dr. Ronald Wong NRBC Normal [facility] Comment on above: Performed By: #### C JIL #### [facility] [address] [address] [address] Ronald Wong PLT 43 103/ul Critically low 150-450 [facility] Comment on above: Performed By: #### C JIL #### [facility] [address] [place] [address] Dr. Ronald Wong RBC 2.37 106/ul Critically low 4.20-5.40 [facility] Comment on above: Performed By: #### C JIL #### [facility] [address] [place] [address] Dr. Ronald Wong RDW 15.2 % Critically high 11.0-15.0 [facility] Comment on above: Performed By: #### C BCSISSY #### [facility] [address] [address] [address] Ronald Wong SEG # 0.83 103/ul Critically low 1.40-6.50 [facility] Comment on above: Performed By: #### C JIL #### [facility] [address] [place] [address] Dr. Ronald Wong SEG % 52.0 % Normal 43.0-75.0 [facility] Comment on above: Performed By: #### C JISISSY #### [facility] [address] [place], [place] [address] Dr. Ronald Wong WBC 1.6 103/ul Critically low 4.0-11.0 [facility] Comment on above: Performed By: #### C JIL #### [facility] [address] [place], [place] [address] STROKE HEAD WOon [...] TYLER SOLIS Date: 2021-09-01 20:14 Normal [facility] Covid-19 PCR (CVDTB)on 08-13 SARS-CoV-2 (COVID-19) RNA KORY+probe Ql (Unsp spec) Not detected Normal NOT DETECTED [facility] Comment on above: Result Comment: When [...] for this test is supported by the Public Relations Counselor of Health and Human Service's declaration that [...] used). Performed By: #### C BCMAN #### [facility] [address] [place] [address] Dr. Ronald Wong ER URINE PROFILEon 2 Bilirubin Ql (U) Negative Normal NEGATIVE [facility] Comment on above: Performed By: #### C BC #### [facility] [address] [place] [address] Dr. Ronald Wong Clarity (U) CLEAR Normal CLEAR [facility] Comment on above: Performed By: #### C BC #### [facility] [address] [place] [address] Dr. Ronald Wong Color (U) YELLOW Normal YELLOW [facility] Comment on above: Performed By: #### C BC #### [facility] [address] [place] [address] Dr. Ronald Wong ERUAHD A micrscopic examina tion will be performed if indicated. Normal [facility] Comment on above: Performed By: #### C BC #### [facility] [address] [place] [address] Dr. Ronald Wong Glucose Ql (U) Negative Normal NEGATIVE [facility] Comment on above: Performed By: #### C BC #### [facility] [address] [place] [address] Dr. Roanld Wong Hemoglobin Ql (U) Negative Normal NEGATIVE [facility] Comment on above: Performed By: #### C BC #### [facility] [address] [place] [address] Dr. Ronald Wong Ketones Ql (U) TRACE Abnormal NEGATIVE [facility] Comment on above: Performed By: #### C BC #### [facility] [address] [place] [address] Dr. Ronald Wong LEUKOCYTES Negative Normal NEGATIVE [facility] Comment on above: Performed By: #### C BC #### [facility] [address] [place] [address] Dr. Ronald Wong Nitrite Ql (U) Negative Normal NEGATIVE [facility] Comment on above: Performed By: #### C BC #### [facility] [address] [place] [address] Dr. Ronald Wong pH (U) 6.0 [pH] Normal 5-9 [facility] Comment on above: Performed By: #### C BC #### [facility] [address] [place] [address] Dr. Ronald Wong SPEC GRAVITY 1.025 Normal 1.005-<=1.0 25 [facility] Comment on above: Performed By: #### C BC #### [facility] [address] [place] [address] Dr. Ronald Wong UA PROTEIN Negative Normal NEGATIVE/ TRACE [facility] Comment on above: Performed By: #### C BC #### [facility] [address] [place] [address] Dr. Ronald Wong UR MICRO IND NOT INDICATED Normal [facility] Comment on above: Performed By: #### C BC #### [facility] [address] [place] [address] Dr. Ronald Wong Urobilinogen Qn (U) 1.0 {Yanick'U}/dL Normal 0.2 - 1.0 [facility] Comment on above: Performed By: #### C BC #### [facility] [address] [place] [address] Dr. Ronald Wong LACTATE/LACTIC ACIDon 2021 Lactate [Moles/Vol] 1.1 mmol/L Normal 0.7-2.0 [facility] Comment on above: Performed By: #### C BC #### [facility] [address] [place] [address] Dr. Ronald Wong PROF 14(COMP METB)on 022 Albumin [Mass/Vol] 3.2 g/dL Critically low 3.5-5.0 [facility] Comment on above: Performed By: #### C MP #### [facility] [address] [place] [address] Dr. Ronald Wong Albumin/Globulin [Mass ratio] 0.8 {ratio} Normal [facility] Comment on above: Performed By: #### C MP #### [facility] [address] [place] [address] Dr. Ronald Wong ALP [Catalytic activity/Vol] 97 U/L Normal 38-126 [facility] Comment on above: Performed By: #### C MP #### [facility] [address] [place] [address] Dr. Ronald Wong ALT [Catalytic activity/Vol] 10 U/L Normal 9-52 [facility] Comment on above: Performed By: #### C MP #### [facility] [address] [place] [address] Dr. Ronald Wong Anion gap [Moles/Vol] 10.7 mmol/L Normal [facility] Comment on above: Performed By: #### C MP #### [facility] [address] [place] [address] Dr. Ronald Wong AST [Catalytic activity/Vol] 21 U/L Normal 14-36 [facility] Comment on above: Performed By: #### C MP #### [facility] [address] [place] [address] Dr. Ronald Wong Bilirubin [Mass/Vol] 1.5 mg/dL Critically high 0.2-1.3 [facility] Comment on above: Performed By: #### C MP #### [facility] [address] [place] [address] Dr. Ronald Wong Calcium [Mass/Vol] 8.9 mg/dL Normal 8.4-10.2 [facility] Comment on above: Performed By: #### C MP #### [facility] [address] [place] [address] Dr. Ronald Wong Chloride [Moles/Vol] 108 mmol/L Critically high 98-107 [facility] Comment on above: Performed By: #### C MP #### [facility] [address] [place] [address] Dr. Roanld Wong CO2 [Moles/Vol] 26.8 mmol/L Normal 22.0-30.0 [facility] Comment on above: Performed By: #### C MP #### [facility] [address] [address] [address] Ronald Wong Creatinine [Mass/Vol] 1.13 mg/dL Critically high 0.52-1.04 [facility] Comment on above: Performed By: #### C MP #### [facility] [address] [address] [address] Ronald Wong EGFR-AF BAHRAINI 59 mL/min/1.73m2 Critically low >=60 [facility] Comment on above: Performed By: #### C MP #### [facility] [address] [address] [address] Ronald Wong EGFR-NON AF BAHRAINI 48 mL/min/1.73m2 Critically low >=60 [facility] Comment on above: Performed By: #### C MP #### [facility] [address] [address] [address] Ronald Wong Globulin (S) [Mass/Vol] 4.1 g/dL Normal [facility] Comment on above: Performed By: #### C MP #### [facility] [address] [address] [address] Ronald Wong Glucose [Mass/Vol] 131 mg/dL Critically high 74-106 [facility] Comment on above: Performed By: #### C MP #### [facility] [address] [address] [address] Ronald Wong Potassium [Moles/Vol] 4.5 mmol/L Normal 3.4-5.0 [facility] Comment on above: Performed By: #### C MP #### [facility] [address] [address] [address] Ronald Wong Protein [Mass/Vol] 7.3 g/dL Normal 6.1-8.2 [facility] Comment on above: Performed By: #### C MP #### [facility] [address] [address] [address] Ronald Wong Sodium [Moles/Vol] 141 mmol/L Normal 137-145 [facility] Comment on above: Performed By: #### C MP #### [facility] [address] [place] [address] Dr. Ronald Wong Urea nitrogen [Mass/Vol] 18.0 mg/dL Critically high 7.0-17.0 [facility] Comment on above: Performed By: #### C MP #### [facility] [address] [place] [address] Dr. Ronald Wong Urea nitrogen/Creatinin e [Mass ratio] 15.9 mg/mg Normal [facility] Comment on above: Performed By: #### C MP #### [facility] [address] [place] [address] Dr. Ronald Wong PROTIMEon 09-01-2021 INR Coag (PPP) [Relative time] 1.06 {INR} Normal [facility] Comment on above: Performed By: #### C BC #### [facility] [address] [place] [address] Dr. Ronald Wong INR GUIDELINES SEE BELOW Normal [facility] Comment on above: Result Comment: HELADIO RED INR: 2.0 - 3.0 CONDITIONS NOT LISTED BELOW 2.5 - 3.5 FOR PROSTHETIC HEART VALVE REPLACEMENT 2.5 - 3.5 RECURRENT THROMBOSIS Performed By: #### C BC #### [facility] [address] [place] [address] Dr. Ronald Wong PT Coag (PPP) [Time] 11.4 s Normal 9.0-11.6 [facility] Comment on above: Performed By: #### C BC #### [facility] [address] [place] [address] Dr. Ronald Wong PTTon 09-01-2021 aPTT Coag (Bld) [Time] 24.5 s Normal 22.3-36.2 [facility] Comment on above: Performed By: #### C BC #### [facility] [address] [place] [address] Dr. Ronald Wong Endoscopy Reporton 1 Endoscopy Report MR#: [id number] [facility] Pt. Name: Laney Larios Surgery Date: [...] P/Juliano Lucas M.D. Date Trans: 06/27/2021 04:11 A/georgeo [id number] Normal [facility] POC GLUCOSE LABon 06-26-2021 Glucose [Mass/Vol] 106 mg/dL High 70-100 [facility] Comment on above: Performed By: #### 8 [address]99 #### [address] [address] [place] [address], [place] Endoscopy Reporton 1 Endoscopy Report MR#: [id number] [facility] Pt. Name: Laney Larios Surgery Date: 03/24/2021 Room #: 0C Date of : 1955 [...] P/Marcy Le DO Date Trans: 03/25/2021 06:50 A/georgeo [id number] Normal [facility] [place] [facility] Alcohol, Medicalon 8 Ethanol mg/dL Invalid [...] Invalid Interpretation Code 24 - 28 mmol/L [facility] CO2 40.2 mm Hg Low 41.0 - 51.0 [facility] Hematocrit (HCT) 29.5 % Low 36 - 46 % [facility] Hemoglobin mass conc (Bld) 9.5 g/dL Low 12 - 16 g/dL [facility] Interpretation and review of laboratory results Abnormal Invalid Interpretation Code [facility] O2 saturation 47.2 % Invalid Interpretation Code [facility] pH, Venous 7.40 1 Invalid Interpretation Code 7.32 - 7.42 [facility] pO2, Homar 28 mm Hg Invalid Interpretation Code 25 - 40 [facility] CBC Auto Differentialon 12-12 Basophils Auto #/vol (Bld) 0.03 K/mcL Invalid Interpretation Code 0.00 - 0.30 [facility] Basophils/100 WBC Auto (Bld) 0.6 % Invalid Interpretation Code [facility] Eosinophils 0.13 K/mcL Invalid Interpretation Code 0.00 - 0.50 [facility] Eosinophils/100 leukocytes 2.8 % Invalid Interpretation Code [facility] Erythrocyte distribution width Auto Entitic volume (RBC) 14.9 % High 11.6 - 14.8 % [facility] Erythrocytes (RBC) 2.72 M/mcL Low 4.00 - 5.20 [facility] Hematocrit (HCT) 27.9 % Low 36 - 46 % [facility] Hemoglobin mass conc (Bld) 9.4 g/dL Low 12 - 16 g/dL [facility] Immature granulocytes #/vol (Bld) 0.01 K/mcL Invalid Interpretation Code 0.00 - 0.30 [facility] Immature granulocytes/100 WBC (Bld) 0.20 % Invalid Interpretation Code [facility] Comment on above: The IG parameter is the percentage of metamyelocytes, myelocytes, and promyelocytes. Lymphocytes 1.72 K/mcL Invalid Interpretation Code 0.90 - 4.00 [facility] Lymphocytes/100 leukocytes 37.1 % Invalid Interpretation Code [facility] MCH 34.6 pg High 26 - 34 pg [facility] MCHC mass conc (RBC) 33.7 g/dL Invalid Interpretation Code 31 - 37 g/dL [facility] MCV 102.6 fL High 80 - 100 fL [facility] Monocytes 0.35 K/mcL Invalid Interpretation Code 0.30 - 0.90 [facility] Monocytes/100 leukocytes 7.6 % Invalid Interpretation Code [facility] Neutrophils 2.39 K/mcL Invalid Interpretation Code 1.70 - 7.00 [facility] Neutrophils/100 WBC Auto (Bld) 51.7 % Invalid Interpretation Code [facility] Nucleated erythrocytes 0.00 K/mcL Invalid Interpretation Code 0.00 - 0.00 [facility] Nucleated erythrocytes/100 erythrocytes 0.0 % Invalid Interpretation Code [facility] Platelet mean volume (PMV) 9.5 fL Invalid Interpretation Code 9 - 15.5 fL [facility] Platelets 142 K/mcL Low 150 - 400 [facility] WBC (Leukocytes) 4.63 K/mcL Invalid Interpretation Code 4.50 - 11.00 [facility] CBC w/ Diffon 01-08-2018 Creatinine The following orders were created for panel order CBC w/ Diff. Procedure Abnormality Status --------- ------ CBC Auto Differential[[id number]] Abnormal Final result Please view results for these tests on the individual orders. Invalid Interpretation Code [facility] CT ABDOMEN PELVIS WITH IV CO NTRAST [...] the abdomen and pelvis from [facility] 05/02/2015.TECHNIQUE:CT examination of the abdomen and pelvis [...] of the wall of the ascending and undrjxyr-bw-ojq transverse colon which may be related to [...] morphology of the liver with splenomegaly and deurc-fr-qbklooqm volume of predominantly upper abdominal ascites and stigmata of portal hypertension, similar in appearance to the prior examination. Pneumobilia and prior cholecystectomy, as before.2. There is thickening of the wall of the ascending and nmqmueuj-yr-cat transverse colon which may be related to [...] 1 anterolisthesis of L5 on S1.[facility]/vrsWorkstation ID: [id number] by: SHADE MANCERA on Sat Jan 08, 2018 1:03:05 AM EDTTranscribed by: LON WILD on Sat Jan 08, 2018 1:14:48 AM EDTFinalized by: SHADE MANCERA on Sat Jan 08, 2018 3:58:36 AM EDT Normal [facility] Comment on above: Order Comment: [...] the abdomen and pelvis from [facility] 05/02/2015. TECHNIQUE: CT examination of the abdomen [...] of the wall of the ascending and zmdttkla-nt-ibi transverse colon which may be related to [...] Bilateral L5 pars defects. Invalid Interpretation Code [facility] CT Abdomen Pelvis With IV Contrast Only 1. Cirrhotic morphology of the liver with splenomegaly and tfsbi-ok-ajxtotus volume of predominantly upper abdominal ascites and stigmata of portal hypertension, similar in appearance to the prior examination. Pneumobilia and prior cholecystectomy, as before. 2. There is thickening of the wall of the ascending and kweeldjf-lk-gbz transverse colon which may be related to [...] grade 1 anterolisthesis of L5 on S1. [employer] Workstation ID: [id number] Invalid Interpretation Code [facility] CT Abdomen Pelvis With IV Contrast Only Interface, Rad In [employer] [facility] - 01/08/2018 4:01 AM EDT EXAMINATION: CT [...] the abdomen and pelvis from [facility] 05/02/2015. TECHNIQUE: CT examination of the abdomen [...] of the wall of the ascending and uvpmkwpy-vw-pmi transverse colon which may be related to [...] morphology of the liver with splenomegaly and dtvtc-dq-qxdbzitk volume of predominantly upper abdominal ascites and stigmata of portal hypertension, similar in appearance to the prior examination. Pneumobilia and prior cholecystectomy, as before. 2. There is thickening of the wall of the ascending and mfwhfsfg-ul-jla transverse colon which may be related to [...] anterolisthesis of L5 on S1. [facility]/[employer] Workstation ID: [id number] Invalid Interpretation Code I and love and youAna fromAtoB [facility] CT HEAD OR BRAIN WITHOUT CON [...] on the left, not significantly changed.Workstation ID: [id number] by: XANDER SUAZO on WedJan 07, 2018 11:55:50 PM EDTTranscribed by: XANDER SUAZO on WedJan 07, 2018 11:55:50 PM EDTFinalized by: XANDER SUAZO on WedJan 07, 2018 11:55:50 PM EDT Normal [facility] Comment on above: Order Comment: [...] the left, not significantly changed. Workstation ID: [id number] Invalid Interpretation Code [facility] CT Head Or Brain Without Contrast [...] right external auditory canal. Invalid Interpretation Code [facility] CT Head Or Brain Without Contrast Interface, Rad In [employer] - 01/07/2018 11:58 PM EDT EXAMINATION: [...] the left, not significantly changed. Workstation ID: [id number] Invalid Interpretation Code KENIA SANTO [facility] Chem 7on 01-08-2018 Anion gap 11 mmol/L [...] High 65 - 99 mg/dL [facility] Interpretation and review of laboratory results Abnormal Invalid Interpretation Code [facility] Potassium molar conc 3.0 mmol/L Low [...] Invalid Interpretation Code 0 - 45 U/L [facility] Bilirubin (conjugated) 1.3 mg/dL High 0 - 0.4 mg/dL [facility] Bilirubin (total) 2.2 mg/dL High 0 - 1.3 mg/dL [facility] Protein 9.0 g/dL High 6 - 8 g/dL [facility] Lavender Topon 01-08-2018 Extra Tube Hold for add-ons. Invalid Interpretation Code [facility] Comment on above: Auto resulted. POC Glucoseon 01-08-2018 Glucose mass conc 105 mg/dL High 65 - 99 mg/dL [facility] Interpretation and review of laboratory results Abnormal Invalid Interpretation Code [facility] PT/INRon 01-08-2018 INR Coag RelTime (Bld) During the induction phase of oral anticoagulation, the INR may not reflect the anticoagulation status of the patient. Therapeutic ranges for INR's are: Most clinical situations: INR 2.0-3.0 Mechanical Prosthetic Valve: INR 2.5-3.5 Critical: INR >5.0 Invalid Interpretation Code [facility] INR Coag RelTime (PPP) 1.6 {INR} High 0.8 - 1.1 [facility] Prothrombin time (PT) Coag time (PPP) 19.1 s High 11.8 - 14.3 [facility] [place] Drawon 01-08-2018 Creatinine The following orders were created for panel order [place] Draw. Procedure Abnormality Status --------- ------ Lavender Top[[id number]] Final result Mint Green Top[[id number]] Final result Gold Top[[id number]] Final result Light Blue Top[[id number]] Final result Please view results for these tests on the individual orders. Invalid Interpretation Code [facility] Troponinon 01-08-2018 Troponin I.cardiac mass conc ng/mL Invalid Interpretation Code <=45 ng/L [facility] Comment on above: The 2014 AHA/ACC Gu ideline for the Management of Patients With Yed-WI-Xglaudsey Acute Coronary Syndromes defines myocardial infarction (AR) as follows: 1. For troponin-I value above the 45 ng/L (99th percentile) cut-off, a rise or fall greater than or equal to 20% from the initial value is indicative of AR, in conjunction with the appropriate clinical symptoms. [...] of laboratory results Abnormal Invalid Interpretation Code [facility] Mucus, Urine Many Abnormal None Seen, [...] Urine, leukocyte esterase presence Trace Abnormal Negative [facility] Urine, pH 7.0 [pH] Invalid Interpretation [...] Detected [facility] Comment on above: Urine Amphetamine Cu [...] for treatment purposes only. Invalid Interpretation Code [facility] Interpretation and review of laboratory results Normal Invalid Interpretation Code [facility] VBG (Obtain Venous Blood Gas es)on 01-08-2018 VBG (Obtain Venous Blood Gases) Invalid Interpretation Code [facility] XR CHEST PA/APon 01-08-2018 XR CHEST [...] WedJan 08, 2018 3:41:50 AM EDT Normal [facility] Comment on above: Order Comment: [...] IMPRESSION: No acute pulmonary abnormality is visualized. [employer] Workstation ID: [id number] Invalid Interpretation Code [facility] XR Chest 1 View No acute pulmonary abnormality is visualized. [employer] Workstation ID: [id number] Invalid Interpretation Code [facility] XR Chest 1 View EXAMINATION: XR CHES T PA/AP HISTORY: Weakness and chest pain. TECHNIQUE: XR CHEST PA/AP COMPARISON: 04/10/2016. FINDINGS: Lungs are hypoinflated. No large pneumothorax or pleural effusion is visualized. No focal airspace consolidation is visualized. Right-sided discoid atelectasis noted. Unchanged cardiomediastinal silhouette and osseous structures noted. Probable cholecystectomy clips noted. Invalid Interpretation Code [facility] XR WRIST LEFT 3+ VIEWS (BARB TU)on 08-25-2017 XR WRIST LEFT 3+ VIEWS (STANDARD) EXAMINATION:XR WRIST LEFT 3+ VIEWS (STANDARD)HISTORY:ORDERING SYSTEM PROVIDED HISTORY: POST OP, TECHNOLOGIST PROVIDED HISTORY: Reason for exam: fxInjury/TraumaCancer History: ?Surgery, RadiationHistory: cholecystectomyEncounter Type: Subsequent/Follow-upMechanis m of injury: contustionORDERING SYSTEM PROVIDED DIAGNOSIS CODES:S52.502A Closed fracture distal radius and ulna, left, initial oysjopspwO82.602A Closed fracture distal radius and ulna, left, [...] anatomic and no complication is appreciated.[facility]/Rigoberto on ID: [id number] by: KALA BREWSTER on WedAug 25, 2017 3:09:11 PM ESTTranscribed by: DAPHNEY RODRIGEZ on WedAug 25, 2017 3:57:29 PM ESTFinalized by: KALA BREWSTER on WedAug 25, 2017 4:03:47 PM EST Normal [facility] Comment on above: Order Comment: Reaso n for exam?:fxInjury/Trauma or Illness?:Injury/TraumaHow long have you had these symptoms (acute/chronic)?:ChronicHistory of cancer?:?Surgeries, chemotherapy, or radiation?:cholecystectomyType of Exam?:Subsequent/Follow-upMechanism of injury?:contustion XR FLUOROSCOPY LESS THAN ONE HOURon 08-10-2017 XR FLUOROSCOPY LESS THAN ONE HOUR This is an auto finalized result. Please refer to patient chart for further information. information. information. [facility] [facility] Comment on above: Order Comment: [...] inner ear cavity. Partially included in the szfna-fu-aieh are left facial fractures including a depressed inferior left orbital wall fracture with hemorrhage in the left maxillary sinus.IMPRESSION:1. No signs of an acute intracranial process.2. Generalized atrophy of the brain with qvgj-te-dqkokbvd probable chronic small vessel ischemic changes.3. Opacification of the right mastoid air cells and inner ear cavity, which may be related to age-indeterminate otomastoiditis. Clinical correlation is recommended.4. Partially imaged are left facial fractures including a depressed left inferior orbital wall fracture with hemorrhage in the left maxillary sinus. Please see the CT facial bone report for further details.JAR/bdWorkstation ID: [id number] by: SY LEAHY on WedAug 03, 2017 4:06:30 PM ESTTranscribed by: BRENDAN VALDES on WedAug 03, 2017 4:11:43 PM ESTFinalized by: SY LEAHY on WedAug 03, 2017 5:47:14 PM EST Normal [facility] Comment on above: Order Comment: [...] intraorbital hematoma. The globe is intact.JAR/bdWorkstation ID: [id number] by: SY LEAHY on WedAug 03, 2017 4:22:29 PM ESTTranscribed by: BRENDAN VALEDS on WedAug 03, 2017 4:26:18 PM ESTFinalized by: SY LEAHY on WedAug 03, 2017 5:47:02 PM EST Normal [facility] Comment on above: Order Comment: Reaso [...] WedAug 03, 2017 3:03:15 PM EST Normal [facility] Comment on above: Order Comment: [...] Encntr screen for malignant neoplasm of genitourinary ecmbhmZ09.8 Acid phosphatase hhncmphhF08.19 Personal history of digestive diseaseCOMPARISON:None.TECHN IQUE:Complete ultrasound [...] WedJul 29, 2017 8:29:54 PM EST Normal [facility] Comment on above: Order Comment: Reaso n for exam?:screen for malignant neoplasm of genitourinary organs, elevated acid phospataseInjury/Trauma or Illness?:Illness/OtherHow long have you had these symptoms (acute/chronic)?:UnknownHistory of cancer?:?Surgeries, chemotherapy, or radiation?:cholecystectomyType of Exam?:InitialAdditional signs and symptoms?:none CNOVSPon 02-04-2017 CNOVSP Visit (SP) Office (HEMAC[facility]) ----LANEY LARIOS ([id number]) 1955 FDate Time Provider Department02/04/17 2:45 PM CAESAR VALENCIA HEMACL During your visit today, we recorded the following information about you: Temperature Pulse Respiration Blood pressure 97.7 degrees 80/minute 16/minute 102/63 Weight Height 46.4 kg 1.6 mMINDY REBECA SEGUNDO PA-C 02/04/2017 3:05 PM SignedCCAneCranston [facility] HospitalWily Canseco Benjamin is a 61 year old female who [...] ANDamp;MINERALS/FERROUS FUM (MULTI VITAMIN ORAL) Take by mouth.[place]-3 Fatty Acids-Vitamin E 1,000 mg cap Take [...] kg (102 lb 3.2 oz) BMI 18.11 kg/h7Mglpetu Appearance: alert and oriented, appearing in no [...] according to her.RUKHSANA RUSH-CReferring Provider: CAESAR VALENCIA [[id number]]Allergies As of Date: 02/04/2017(No Known Allergies)Date Reviewed: 02/04/2017Reviewed by: Cris Varma - Fully AssessedReason for Visit: Anemia [6] Cmt: 1 year follow upPrimary Visit Diagnosis:Anemia, unspecified type [D64.9] Other Visit Diagnosis:Wound infection [T14.8, L08.9]Order(s):IRON + TIBC [SQIRON] Order #: [id number] FUTURE FERRITIN BLD [SQFERR] Order #: [id number] FUTUREDisposition: Return in about 1 year (around [...] by LIGIA SEGUNDO on 02/04/17 Normal [facility] PROGRESSon 02-04-2017 PROGRESS HNO ID: [id number] thor: Ligia Nettleservice: (none)Author Type: Physician AssistantType: [...] ANDMINERALS/FERROUS FUM (MULTI VITAMIN ORAL) Take by mouth.[place]-3 Fatty Acids-Vitamin E 1,000 mg cap Take [...] kg (102 lb 3.2 oz) BMI 18.11 kg/n0Ruiljya Appearance: alert and oriented, appearing in no [...] according to her.LIGIA SEGUNDO PA-C Normal [facility] Remote CBCDIF (for [facility] use o nly)on 02-04-2017 Abs Baso 0.01 k/uL Normal 0.00-0.10 [facility] Abs [place] 0.30 k/uL Normal 0.00-0.86 [facility] Abs Neut 2.10 k/uL Normal 1.45-7.50 [facility] Basophils/100 WBC Auto (Bld) 0.3 % Normal [facility] Eosinophils 0.21 10*3/uL Normal 0.00-0.45 [facility] Eosinophils/100 leukocytes 5.4 % Normal [facility] Erythrocyte distribution width Auto Ratio (RBC) 14.3 % Normal 11.5-15.0 [facility] Erythrocytes (RBC) 2.59 10*6/uL Low 3.90-5.20 [facility] Hematocrit (HCT) 27.8 % Low 36.0-46.0 [facility] Hemoglobin mass conc (Bld) 8.7 g/dL Low 11.5-15.5 [facility] Lymphocytes 1.25 10*3/uL Normal 1.00-4.00 [facility] Lymphocytes/100 leukocytes 32.3 % Normal [facility] MCH 33.6 pG Normal 26.0-34.0 [facility] MCHC mass conc (RBC) 31.3 g/dL Normal 30.5-36.0 [facility] MCV 107.3 fL High 80.0-100.0 [facility] Monocytes/100 leukocytes 7.8 % Normal [facility] Neutrophils/100 WBC Auto (Bld) 54.2 % Normal [facility] Platelet mean volume (PMV) 8.9 fL Low 9.0-12.7 [facility] Platelets 140 10*3/uL Low 150-400 [facility] WBC (Leukocytes) 3.87 10*3/uL Normal 3.70-11.00 [facility] Vital Signs Date Time Vital Sign Value Performing Clinician Ember balderas 01-08-2018 03:45-0400 BP Diastolic 64 mm[Hg] [facility] 01-08-2018 03:45-0400 BP Systolic 87 mm[Hg] [facility] 01-08-2018 03:45-0400 Pulse (Heart Rate) 71 /min [facility] 01-08-2018 03:45-0400 Pulse Oximetry 98 % [facility] 01-08-2018 03:45-0400 Respiratory Rate 18 /min [facility] 01-07-2018 22:19-0400 BMI (Body Mass Index) 17.01 kg/m2 [facility] 01-07-2018 22:19-0400 Body Temperature 97.59 [degF] [facility] 01-07-2018 22:19-0400 Height 160 cm [facility] 01-07-2018 22:19-0400 Weight 43.55 kg [facility] Encounters Encounter Date Encounter Type Care Provider Facility Start: 12-27-2023 End: 12-27-2023 ambulatory NAMAN CARBAJAL [facility] Start: 11-29-2023 End: 11-29-2023 ambulatory SHO MILLER [facility] Start: 11-25-2023 End: 11-25-2023 ambulatory [facility] Start: 10-05-2023 End: 10-11-2023 ambulatory ALBERTO Delacruz LÓPEZ [facility] Start: 10-04-2023 End: 10-04-2023 ambulatory [facility] Start: 09-29-2023 End: 09-29-2023 ambulatory NAMAN CARBAJAL [facility] Start: 09-28-2023 End: 09-29-2023 ambulatory ADE TAN [facility] Start: 08-31-2023 End: 02-20-2024 ambulatory ALBERTO DAWN [facility] Start: 08-30-2023 End: 08-30-2023 ambulatory WONG [facility] Start: 08-27-2023 End: 08-27-2023 ambulatory SHO Canseco [facility] Start: 08-26-2023 End: 08-26-2023 ambulatory [facility] Start: 08-17-2023 End: 08-17-2023 ambulatory [facility] Start: 07-29-2023 End: 09-10-2023 ambulatory [facility] Start: 04-01-2023 End: 04-01-2023 ambulatory [facility] Start: 12-31-2022 End: 12-31-2022 ambulatory [facility] Start: 12-11-2022 End: 12-12-2022 ambulatory WAYLON CAVAZOS [facility] Start: 09-02-2021 End: 09-03-2021 Evaluation and management of inpatient SHAIKH KAISER Facility: Start: 06-26-2021 End: 06-27-2021 ambulatory REFERRED SELF Facility:[facility] Start: 03-24-2021 End: 03-25-2021 ambulatory REFERRED SELF Facility:[facility] Start: 09-11-2020 End: 09-11-2020 Orders Only Leticia Wright Work Phone: [facility] Start: 01-08-2018 End: 01-08-2018 Emergency department patient visit GHASSAN ZEINA [facility] Start: 01-07-2018 End: 01-08-2018 Emergency department patient visit Del Roberts Christianson Work Phone: [facility] Start: 08-25-2017 End: 08-26-2017 Ambulatory MICHAEL ADAMS [facility] Start: 08-10-2017 End: 08-10-2017 Patient encounter MICHAEL ADAMS [facility] Start: 08-04-2017 End: 08-04-2017 Ambulatory MICHAEL ADAMS [facility] Start: 08-03-2017 End: 08-03-2017 Emergency department patient visit YOANA ROSALES [facility] Start: 07-29-2017 End: 07-30-2017 Patient encounter GHASSAN [facility] Start: 07-27-2017 End: 07-27-2017 Patient encounter GHASSAN [facility] Start: 07-02-2017 End: 07-02-2017 Patient encounter [facility] Start: 06-24-2017 End: 06-24-2017 Patient encounter GHASSAN [facility] Start: 02-04-2017 End: 02-05-2017 Ambulatory CAESAR VALENCIA [facility] Procedures Date Procedure Procedure Detail Performing Clinician Start: 11-25-2023 Follow-up visit Follow-up MARVIN Richard [place] Start: 03-24-2021 ANES UPR GI NDSC PX NOS REFERRED SELF Start: 03-24-2021 EGD DIAGNOSTIC BRUSH WASH JULIANO LUCAS Plan of Treatment Date Care Activity Detail Author Start: 08-03-2027 [facility] Start: 03-12-2020 Influenza vaccination given Se quential Influenza Vaccine (#1) [facility] Start: 03-12-2018 Influenza vaccination SEQUENTI AL INFLUENZA VACCINE (Season Ended) [facility] Start: 2016 Zoster vaccine hzv l adriana for subcutaneous use ZOSTER VACCINE [facility] Start: 2006 Administration of he rpes zoster vaccine Zoster Vaccines (1 of 2) [facility] Start: 2006 Screening for malign ant neoplasm of colon [facility] Start: 1972 COVID-19 Vaccine (1 of 2) COVID-19 V accine (1 of 2) [facility] Start: 1971 HIV screening HIV Screening [facility] Start: 1968 Adolescent depressio n screening assessment Depression Screening (PHQ9) [facility] Start: 1959 History and physical examination, annual for health maintenance Wellness Visit [facility] Start: 1955 Screening colonoscopy COLONOSCOPY [facility] Start: 1956 Screening for malign ant neoplasm of cervix PAP SMEAR [facility] Start: 1956 Screening mammography Mammogram [facility] End: 01-07-2018 Bacteria aerobode culture Urine Aerobic Culture Routine Once for 1 Occurrences starting 01/07/2018 until 01/07/2018 [facility] Bacteria aerobode culture Urine Aerobic Culture Routine 01/07/2018 11:13 PM EDT [facility] End: 01-07-2018 Bacteria culture Blood Culture Aerobic/Anaerobic Routine Once for 1 Occurrences starting 01/07/2018 until 01/07/2018 [facility] Bacteria culture [facility] Immunizations Immunization Date Immunization Notes Care Provider Eva waddell 08-03-2017 tetanus toxoid, redu jason diphtheria toxoid, and acellular pertussis vaccine, adsorbed; Translations: [TDAP] Del Christianson [facility] Payers Date Payer Category Payer Medicaid [id number] 2016 Medicaid [employer] [id number] 2016-Present [id number] 1959 Medicaid [id number] 1955 Unknown [id number] 1955 Unknown [id number] 1955 Unknown [id number] [id number] 1955 Unknown [id number] [id number] 1955 Unknown [id number] [id number] 1955 Unknown [id number] [id number] 1955 Unknown [id number] [id number] 1955 Unknown [id number] [id number] 1955 Unknown [id number] [id number] 1956 Unknown [id number] [id number] 1956 Unknown [id number] [id number] 1955 Unknown [id number] [id number] 1955 Unknown [id number] Social History Date Type Detail Facility Start: 01-07-2018 End: 05-10-2018 Tobacco smoking status IAIS Former smoker [facility] End: 08-10-2014 History of tobacco use Current smoker [facility] Sex Assigned At Not on file [facility] Start: 05-10-2018 Tobacco use and exposure Never used [facility] Start: 05-10-2018 Alcohol intake Current non-dr risk assessment analyst of alcohol (finding) [facility] Medical Equipment Procedure Code Equipment Code Equipment [...] / No Expiration Dates Noted Clinical Notes 12-11-2022 to 11-29-2023 Note Date & Type Note Facility 11-29-2023 Note Called patient for t elehealth visit. Spoke with pts nurse, patient was out of the building- she must have forgotten about the appointment . Nurse states pt was admitted to the hospital a couple of weeks ago with elevated ammonia levels and anemia. The ammonia resolved, and she was transfused, and is now back to base line. Nurse states she is possibly moving around December 10 [facility] to live with family, and if/when she moves will establish with GI and hematology closer to where she lives. I will attempted to call patient later in the day for telehealth visit. Addendum: Multiple attempts were made to contact patient with out success. [facility] 11-29-2023 Note The patient was not seen. Please do not charge [facility] 09-28-2023 Note Patient: Laney Larios Procedure Summary Date: 09/28/23 Room / Location: [facility] Endoscopy Anesthesia Start: 1030 Anesthesia Stop: 1057 [...] per anesthesia protocol. No notable events documented. [facility] 09-28-2023 Note Gastroenterology His tory and [...] magnesium capsule 1 capsule. Yes Historical Provider, MD midodrine (Proamatine) 10 mg tablet Take 10 [...] Provider, ciprofloxacin (Ci (more content not included)... [facility] 09-28-2023 Note Patient: Laney Larios Procedure Information Date/Time: 09/28/23 1045 Scheduled providers: Ade Tan MD; Dhiraj Martinez MD; LOREN Hamm Procedure: EGD Location: [facility] Relevant Problems Anesthesia (within normal limits) [...] Plan discussed with CAA. Additional Equipment Requests [facility] 08-17-2023 Note [facility] Gastroenterolog y Follow-Up Patient Visit CHIEF COMPLAINT Chief Complaint Patient presents with Hepatitis C HISTORY OF PRESENT ILLNESS: Laney Larios is a 68 y.o. female previously seen in the office by Dr. Lucas for evaluation of her history of cirrhosis. Summary of old records: Per HPI from 06/18/22 Lanye Larios is a 67 y.o. female previously [...] that she will be moving to the [facility]. Recommendation was to establish with a [...] Hammond, Hematology in (more content not included)... [facility] 04-01-2023 Note [facility] Gastroenterolog y Follow-Up Patient Visit CHIEF COMPLAINT [...] that she will be moving to the [facility]. Recommendation was to establish with a GI provider in the area. INTERVAL 12/31/22: Mx Larios returns in follow up. 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 She has been off Imuran for approx 6 months. The Imuran was held Jun 2022 due to worsening anemia. Most recent liver enzymes ( off Imuran) were WNL Ms. Larios also follow (more content not included)... [facility] 12-31-2022 Note [facility] Gastroenterolog y Follow-Up Patient Visit CHIEF COMPLAINT [...] that she will be moving to the [facility]. Recommendation was to establish with a GI provider in the area. INTERVAL 12/31/22: Mx Larios returns in follow up. 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 She has been off Imuran for approx 6 months. The Imuran was held Jun 2022 due to worsening anemia. Most recent liver enzymes ( off Imuran) were WNL Ms. Larios als (more content not included)... [facility] 12-11-2022 Note Patient: Laney Larios Procedure Information Anesthesia Start Date/Time: 12/11/22 1019 Scheduled providers: Waylon Cavazos MD; Herb Mims MD; LOREN Curran Procedure: ENDOSCOPIC ULTRASOUND (UPPER) Location: [facility] Endoscopy Relevant Problems Cardio (+) Essential hypertension [...] Plan discussed with CAA. Additional Equipment Requests [facility] 12-11-2022 Note Patient: Laney Larios Procedure Summary Date: 12/11/22 Room / Location: [facility] Endoscopy Anesthesia Start: 1019 Anesthesia Stop: [...] per anesthesia protocol. No notable events documented. [facility] 12-11-[address] Cavazos speaking with patient at bedside. Report called to Carolin Torres and spoke with Mandy. All questions answered at this time. Pictures from procedure and discharge instructions sent with patient back to facility Yajaira Mays RN PACU [facility] 12-11-2022 Note Airway Date/Time: 12/11/2022 10:25 AM Urgency: elective General Information and Staff Patient location during procedure: OR Anesthesiologist: Herb Mims MD Resident/BRUSH LOADER AND HANDLE ATTACHER/CAA: LOREN Curran Performed: resident/BRUSH LOADER AND HANDLE ATTACHER/CAA Indications and Patient Condition Indications for airway [...] 1 Number of other approaches attempted: 0 [facility] Summary Purpose Family History No Family [...] section and content) DATE CREATED AUTHOR 12/31/2017 [facility] DATE CREATED AUTHOR AUTHOR'S ORGANIZ ATION 01/05/2018 [facility] DATE CREATED AUTHOR AUTHOR'S ORGANIZ ATION 02/04/2018 [facility] DATE CREATED AUTHOR AUTHOR'S ORGANIZ ATION 09/08/2021 [facility] DATE CREATED AUTHOR AUTHOR'S ORGANIZ ATION 02/15/2022 [facility] DATE CREATED AUTHOR AUTHOR'S ORGANIZ ATION 12/06/2023 [facility] DATE CREATED AUTHOR AUTHOR'S ORGANIZ ATION 12/29/2023 [facility] ED Notes - Irina Wynn RN - 01/08/2018 3:55 AM EDTED Notes - Irina Wynn RN - 01/08/2018 3:42 AM EDTED Notes - Irina Wynn RN - 01/08/2018 3:33 AM EDT Miscellaneous Notes (unrecog nized section and content) Report given to: DEJA Sheehan at [facility] at this time. Report given to: [facility] Pt bathed head to toe d/t visible lice crawling t/o pt hair and on face. Physician and RN notified of transport. Urine drug screen not collected; error in marking collected. Patient is resting comfortably. Call light within reach. Patient updated on continued plan of care. Pt returned from CT Scan vomiting, per Dr. Meghan canseco for vinniefran. Patient is resting comfortably. Call light within reach. Patient updated on continued plan of care. Patient is resting comfortably. Call light within reach. Patient updated on continued plan of care. Associated Order(s): ECG 12-LEAD Formatting of this note may be different from the original. [facility] ED Physician Note: NAME: Laney Larios 62 y.o. CSN: [id number] PCP: Ghassan Peña CNP ED Course / Medical Decision Making: Patient comes in with altered mental status and seeing things and feeling fatigued. She has a history of liver cirrhosis. She states she seen at [facility] at [place]. She said last time she saw her gift packer was 2-3 months ago. Her liver ammonia [...] do feel she needs transferred back to [facility] since that is where her care is for her cirrhosis and that is where patient wants to go. Case with [facility] transfer center they will call back when a bed available. My shift is ending so I discussed case with Dr. Dewey Arce and he will talk to [facility] and fill out transfer sheet once [...] HYPOKALEMIA Disposition: Patient is being Transfer to [facility] Hospital to [facility] No medications on file History: Chief Complaint: [...] DISTAL RADIUS; Surgeon: Michael Latham MD; Location: [facility] Main OR; Service: Orthopedic FAM. Hx: Family [...] Procedure Abnormality Status --------- ------ CBC Auto Differential[[id number]] Abnormal Final result Please view results for these tests on the individual orders. OBTAIN VENOUS BLOOD GASES DRUGS OF ABUSE SCREEN, URINE CT Abdomen Pelvis With IV Contrast Only Preliminary Result 1. Cirrhotic morphology of the liver with splenomegaly and wdqap-yr-umqhdyil volume of predominantly upper abdominal ascites and stigmata of portal hypertension, similar in appearance to the prior examination. Pneumobilia and prior cholecystectomy, as before. 2. There is thickening of the wall of the ascending and owypjgnl-pf-plg transverse colon which may be related to [...] anterolisthesis of L5 on S1. [facility] Workstation ID: [id number] CT Head Or Brain Without Contrast Final Result 1. No acute intracranial process. 2. Age-related atrophy with stable mild chronic small-vessel white matter ischemia. 3. Mild chronic-appearing left sphenoid sinusitis. 4. Bilateral mastoid effusions, moderate on the right and small on the left, not significantly changed. Workstation ID: [id number] XR Chest 1 View Preliminary Result No acute pulmonary abnormality is visualized. /[facility] Workstation ID: [id number] Procedures: EKG 12-lead Date/Time: 01/08/2018 12:11 AM Performed by: DEL CHRISTIANSON Authorized by: DEL CHRISTIANSON Interpreted by ED attending physician Rhythm: sinus rhythm BPM: 77 Conduction: conduction normal ST Segments: ST segments normal T Waves: T waves normal Clinical impression: abnormal ECG . . Del Christianson MD ED Physician [facility] Emergency Department (Please note that portions [...] BE BASED ON THE PRIMARY CLINICAL RECORDS. [facility]. provides no warranty or guarantee of the accuracy or completeness of information in this document.
--- NOTE | 2024-03-18 16:30 | ECG_ITS ---
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
--- NOTE | 2024-03-18 16:30 | XR_ITS ---
The [address] [address] Patient Name: LANEY LARIOS MRN: [id number] date: 1955 Sex: F Assigned Patient Location: ER Current Patient Location: ED.MAIN Accession/Order Number: [id number] Exam Date: 03/18/2024 16:40 Report Date: 03/18/2024 17:46 At the request of: JESSEE BRIAN Procedure: XR chest 1V EXAM: XR chest 1V TECHNIQUE: Single AP view chest HISTORY: ams COMPARISON: 01/05/2024 FINDINGS: The heart and mediastinum are unremarkable. The lung woodard are clear of any acute infiltrate, effusion or mass. No acute bony abnormality. Degenerative changes of the right shoulder. XR/XR chest 1V IMPRESSION: No acute pulmonary disease. Electronically authenticated by: GABRIELLE MCKEON Date: 03/18/2024 17:46
--- NOTE | 2024-03-18 16:54 | CT_ITS ---
[address] [address] Patient Name: LANEY LARIOS MRN: [id number] date: 1955 Sex: F Assigned Patient Location: ER Current Patient Location: ER Accession/Order Number: [id number] Exam Date: 03/18/2024 17:20 Report Date: 03/18/2024 17:52 At the request of: JESSEE BRIAN Procedure: CT head/brain wo con EXAMINATION: CT head/brain wo con, 03/18/2024 5:20 PM EDT HISTORY: ams COMPARISON: 01/19/2024 TECHNIQUE: CT scan of the head was performed without IV contrast. CT dose reduction technique was used, including Automated Exposure Control. FINDINGS: BRAIN PARENCHYMA/CSF SPACES: Ventricles are normal in size for age. There is no hemorrhage, mass effect or midline shift. Moderate low attenuation in the white matter consistent with chronic microvascular ischemia. There is moderate diffuse cerebral atrophy. PARANASAL SINUSES: Clear. SKULL BASE AND CALVARIUM: Normal. EXTRACRANIAL SOFT TISSUES: Normal. CT/CT head/brain wo con IMPRESSION: No acute intracranial findings. Atrophy and chronic white matter small vessel ischemic changes. MRI would be more sensitive for acute infarct if clinically indicated. Electronically authenticated by: BRAD MCARTHUR Date: 03/18/2024 17:52
[2024-03-18 17:02] LABS: Mean Corpuscular HGB Conc 33.3 g/dL (29.9-35.2); Mean Corpuscular Hemoglobin 35.5 pg (26.7-34.0); Mean Corpuscular Volume 106.4 fL (81.0-99.0); Mean Platelet Volume 10.9 fL (9.5-13.5); Red Blood Count 2.82 10^6/uL (4.20-5.40); Red Cell Distribution Width 15.8 % (11.0-15.0)
[2024-03-18 17:10] LABS: Alanine Aminotransferase 19 U/L (14-59); Albumin Globulin Ratio 0.6; Albumin Level 3.2 g/dL (3.4-5.0); Alkaline Phosphatase 132 U/L (46-116); Anion Gap 12.6; Aspartate Amino Transferase 28 U/L (15-37); BUN Creatinine Ratio 20.2; Bilirubin Total 1.6 mg/dL (0.2-1.0); Calcium 9.4 mg/dL (8.5-10.1); Carbon Dioxide 25.6 mmol/L (21.0-32.0); Chloride 106 mmol/L (98-107); Estimated GFR (African America 55 (>=60); Estimated GFR (Non-African Ame 45 (>=60); Globulin 5.2 g/dL; Glucose 131 mg/dL (74-106); Potassium 4.2 mmol/L (3.5-5.1); Sodium 140 mmol/L (136-145); Total Protein 8.4 g/dL (6.4-8.2)
[2024-03-18 17:12] LABS: Ammonia 108 umol/L (11-32)
[2024-03-18 17:29] LABS: Platelet Count 41 10^3/uL (150-450)
[2024-03-18 17:30] LABS: Eosinophils Absolute Manual 0.06 10^3/uL (0.00-0.70); Lymphocytes Absolute Manual 0.86 10^3/uL (1.20-3.80); Monocytes Absolute Manual 0.12 10^3/uL (0.30-0.80); Segmented Neut Absolute Manual 0.96 10^3/uL (1.4-6.5)
[2024-03-18 17:32] LABS: Macrocytosis 1+
[2024-03-18 17:33] LABS: Poikilocytosis 3+
[2024-03-18] MEDS: 0.9 % SODIUM CHLORIDE 1,000 ML 1000 ML IV (17:47)
--- NOTE | 2024-03-18 17:47 | ED_ITS ---
HPI - Altered Mental Status General Chief Complaint: Altered Mental Status Stated Complaint: UNRESPONSIVE Time Seen by Provider: 03/18/24 16:16 Source: patient Mode of arrival: ambulance Limitations: no limitations History of Present Illness HPI narrative: Ms. Alexander is a 68-year-old female coming to us from a long term facility, she have a history of autoimmune hepatitis and she presented to us multiple time with altered mental status before. Today she was brought to us by the EMS for not being responsive as much as she used to, the patient according to the long term facility was doing okay till yesterday at 5 PM when all of a sudden she became less responsive The patient have a DNR CC status The family at the bedside did not know why the patient in the ER and the patient herself was nonverbal although she does open her eyes to calling her name but not cooperative Related Data Home Medications ?Medication ?Instructions ?Recorded ?Confirmed albuterol sulfate 90 mcg/actuation 2 puff inhalation Q4H PRN 05/20/23 03/18/24 aerosol inhaler shortness of breath or wheezing docusate sodium 100 mg capsule 100 mg PO DAILY 05/20/23 03/18/24 fluticasone propionate 50 1 spray intranasal DAILY PRN 05/20/23 03/18/24 mcg/actuation nasal allergy symptoms spray,suspension loratadine 10 mg chewable tablet 10 mg PO DAILY 05/20/23 03/18/24 midodrine 10 mg tablet 10 mg PO TIDWM 05/20/23 03/18/24 polyethylene glycol 3350 17 17 g PO DAILY PRN constipation 05/20/23 03/18/24 gram/dose oral powder (ClearLax) potassium chloride 10 mEq 20 meq PO DAILY 05/20/23 03/18/24 tablet,extended release (Klor-Con) rifaximin 550 mg tablet (Xifaxan) 550 mg PO BID 05/20/23 03/18/24 sertraline 25 mg tablet 12.5 mg PO Q24H 05/20/23 03/18/24 ursodiol 250 mg tablet 250 mg PO Q12H 05/20/23 03/18/24 acetaminophen 325 mg tablet 650 mg PO Q6H PRN fever or pain 08/04/23 03/18/24 cholecalciferol (vitamin D3) 1,250 1,250 mcg PO QWEEK 08/04/23 03/18/24 mcg (50,000 unit) capsule (Weekly-D) magnesium oxide 400 mg PO DAILY 08/04/23 03/18/24 pantoprazole 40 mg tablet,delayed 40 mg PO DAILY 08/04/23 03/18/24 release (Protonix) trazodone 50 mg tablet 50 mg PO .QHS 08/04/23 03/18/24 mirtazapine 15 mg tablet (Remeron) 7.5 mg PO .QHS 11/15/23 03/18/24 Previous Rx's ?Medication ?Instructions ?Recorded ertapenem 1 gram solution for 1 g IV DAILY 9 days #9 ea 01/08/24 injection lactulose 10 gram/15 mL oral 20 g (30 mL) PO TID #0 mL 01/08/24 solution (Enulose) Allergies Allergy/AdvReac Type Severity Reaction Status Date / Time No Known Drug Allergies Allergy Verified 05/20/23 18:30 Review of Systems ROS Narrative Could not obtain review of system due to patient clinical condition [facility] Medical History (Updated 03/18/24 @ 18:06 by Neetu Monroe MD) E coli bacteremia ?R78.81 - Bacteremia (ICD-10) ?B96.20 - Unspecified Escherichia coli [E. coli] as the cause of diseases classified elsewhere (ICD-10) Hyperammonemia ?E72.20 - Disorder of urea cycle metabolism, unspecified (ICD-10) Chronic hypotension ?I95.89 - Other hypotension (ICD-10) Pancytopenia ?D61.818 - Other pancytopenia (ICD-10) GERD (gastroesophageal reflux disease) ?K21.9 - Gastro-esophageal reflux disease without esophagitis (ICD-10) Hypotension ?I95.9 - Hypotension, unspecified (ICD-10) Protein calorie malnutrition ?E46 - Unspecified protein-calorie malnutrition (ICD-10) Vitamin D deficiency ?E55.9 - Vitamin D deficiency, unspecified (ICD-10) Dry eye syndrome ?H04.129 - Dry eye syndrome of unspecified lacrimal gland (ICD-10) Hernia ?K46.9 - Unspecified abdominal hernia without obstruction or gangrene (ICD- 10) Hyperglycemia ?R73.9 - Hyperglycemia, unspecified (ICD-10) Hyperlipemia ?E78.5 - Hyperlipidemia, unspecified (ICD-10) Hepatic failure ?K72.90 - Hepatic failure, unspecified without coma (ICD-10) Cirrhosis of liver ?K74.60 - Unspecified cirrhosis of liver (ICD-10) Dysthymic disorder ?F34.1 - Dysthymic disorder (ICD-10) Depression ?F32.A - Depression, unspecified (ICD-10) COPD (chronic obstructive pulmonary disease) ?J44.9 - Chronic obstructive pulmonary disease, unspecified (ICD-10) Autoimmune hepatitis ?K75.4 - Autoimmune hepatitis (ICD-10) Surgical History (Updated 08/04/23 @ 11:58 by Jennifer Esteban) H/O: hysterectomy ?Z90.710 - Acquired absence of both cervix and uterus (ICD-10) History of cholecystectomy ?Z90.49 - Acquired absence of other specified parts of digestive tract (ICD- 10) Previous back surgery ?Z98.890 - Other specified postprocedural states (ICD-10) Family History (Updated 08/04/23 @ 12:00 by Jennifer Esteban) Other Family history not known due to adoption Social History Within the past year, how often did you have a drink containing alcohol: never Within the past year, how often did you have six or more drinks on one occasion: never Score interpretation: A score less than 3 is consistent with normal alcohol consumption. Smoking status: Former smoker Non-prescribed substance use: denies use Previous occupational history: retired Known occupational exposures/hazards: No Highest level of school completed/degree received: decline to answer Do you want help with school or training: No Are you now , , , , never or living with a partner: never Little interest or pleasure in doing things: not at all Feeling down, depressed, or hopeless: not at all Feel stressed/tense/nervous/anxious/difficulty sleeping: not at all Do you think of yourself as: straight/heterosexual Gender Identity: female Exam Narrative Exam Narrative: The patient is lethargic and sleepy Her vital signs are within normal She does have bilateral upper and lower extremity chronic atrophy and cachectic Examination of the pupils shows chronic changes of the pupil that mostly secondary to previous surgeries but pupils are mildly reactive to light bilaterally There was no distress on abdominal exam Head: Normocephalic, atraumatic. Neck: Supple, non-tender. Eye: Pupils are equal, round and EOMI. No scleral icterus. Ears, Nose, Mouth, and Throat: TM are clear, no nasal mucosal hypertrophy. Oral mucosa is moist, no posterior oropharynx erythema, uvula is mid-line Cardiovascular: Regular Rate and Rhythm without murmur, gallop or rub. Respiratory: No accessory muscle use or respiratory distress. Lungs are clear to auscultation, no wheezing, rales or rhonchi Chest Wall: no tenderness Constitutional Vital Signs, click to edit/add: Last Vital Signs Temp 97.2 F L 03/18/24 16:13 Pulse 65 03/18/24 17:10 Resp 18 03/18/24 17:10 BP 120/71 03/18/24 17:00 Pulse Ox 100 03/18/24 17:10 O2 Del Method Room Air 03/18/24 16:20 Course Vital Signs Vital signs: Vital Signs Pulse Rate 69 03/18/24 16:12 Respiratory Rate 19 03/18/24 16:12 Pulse Oximetry 83 L 03/18/24 16:12 Temperature 97.2 F L 03/18/24 16:13 Pulse Rate 65 03/18/24 17:10 Respiratory Rate 18 03/18/24 17:10 Blood Pressure 120/71 03/18/24 17:00 Pulse Oximetry 100 03/18/24 17:10 Oxygen Delivery Method Room Air 03/18/24 16:20 MDM - Altered Mental Status MDM Narrative Medical decision making narrative: The patient EKG showing sinus rhythm with a heart rate of [address] elevation or depression CBC shows leukopenia which is a chronic problem in addition to the fact that the patient had hemoglobin of 10 with a baseline usually around 8 which could be signs of the The patient chemistry shows acute elevation of the BUN as well as elevation of the ammonia level at 108 The patient presentation mostly secondary to ammonia acute encephalopathy She have a DNRCC status but the family did request that we do some blood workup and give her some fluid hydration and not do any extra measure other than her regular management plan The patient CT head showed no acute pathology The patient is a comfort care DNR patient, and it seemed that the family is not understanding that the comfort care would not mean that the patient to get any treatment the still requested that patient get a blood workup and x-ray because of her symptoms are not new and she always present this way I did explain to them that right now although she does have hepatic encephalopathy and ammonia level that is elevated the patient will be admitted for hydration, but I think that it is should be discussed with the family the comfort care measure and changing her to hospice care due to the recurring problem and poor prognosis the pt case discussed with [facility] and pt will be admitted to Dr Reyes as observation possible need for hospice care establishment Lab Data Labs: Lab Results 03/18/24 Range/Units 16:47 WBC 2.0 L (4.0-11.0) 10^3/uL RBC 2.82 L (4.20-5.40) 10^6/uL Hgb 10.0 L (12.0-16.0) g/dL Hct 30.0 L (36.0-48.0) % MCV 106.4 H (81.0-99.0) fL MCH 35.5 H (26.7-34.0) pg MCHC 33.3 (29.9-35.2) g/dL RDW 15.8 H (11.0-15.0) % Plt Count 41 L (150-450) 10^3/uL MPV 10.9 (9.5-13.5) fL Seg Neuts % (Manual) 48.0 (43.0-75.0) Lymphocytes % (Manual) 43.0 (20.5-60.0) % Monocytes % (Manual) 6.0 (1.7-12.0) % Eosinophils % (Manual) 3.0 (0.9-7.0) % Basophils % (Manual) 0.0 L (0.2-2.0) % Neutrophils # (Manual) 0.96 L (1.4-6.5) 10^3/uL Lymphocytes # (Manual) 0.86 L (1.20-3.80) 10^3/uL Monocytes # (Manual) 0.12 L (0.30-0.80) 10^3/uL Eosinophils # (Manual) 0.06 (0.00-0.70) 10^3/uL Basophils # (Manual) 0.00 (0.00-0.10) 10^3/uL Poikilocytosis 3+ Macrocytosis 1+ Sodium 140 (136-145) mmol/L Potassium 4.2 (3.5-5.1) mmol/L Chloride 106 (98-107) mmol/L Carbon Dioxide 25.6 (21.0-32.0) mmol/L Anion Gap 12.6 BUN 24.0 H (7.0-18.0) mg/dL Creatinine 1.19 H (0.55-1.02) mg/dL Est GFR ( Amer) 55 L (>=60) Est GFR (Non-Af Amer) 45 L (>=60) BUN/Creatinine Ratio 20.2 Glucose 131 H (74-106) mg/dL Calcium 9.4 (8.5-10.1) mg/dL Total Bilirubin 1.6 H (0.2-1.0) mg/dL AST 28 (15-37) U/L ALT 19 (14-59) U/L Alkaline Phosphatase 132 H (46-116) U/L Ammonia 108 H* (11-32) umol/L Total Protein 8.4 H (6.4-8.2) g/dL Albumin 3.2 L (3.4-5.0) g/dL Globulin 5.2 g/dL Albumin/Globulin Ratio 0.6 Discharge Plan Discharge Chief Complaint: Altered Mental Status Clinical Impression: Acute hepatic encephalopathy, AMS (altered mental status), Dehydration Patient Disposition: Admitted As Inpatient Time of Disposition Decision: 18:06
--- NOTE | 2024-03-18 19:29 | PC.NURSE ---
Lactulose enema was ordered for this patient. Medication is unavailable. Superintendent [facility] was called, she contacted pharmacy. They are going to come in to make the enema, but it is going to take greater than 30 minutes. This patient is going to be moved to med/surg while waiting for the enema to be made.
--- OUTSIDE RECORDS SUMMARY | 2024-03-18 19:54 | XMS_ITS | CCD ---
Author Organization [place] [employer] [facility] Care Team Providers Care Metal Cnc Operator Name Role Phone KEKE, MICHAEL BRYAN Unavailable Unavailable PEÑA, YOUNG [place] Unavailable Unavailable KEKE, MICHAEL BRYAN Unavailable Unavailable PEÑA, YOUNG [place] Unavailable Unavailable FANNING, CAESAR E Unavailable Unavailable FANNING, CAESAR E Unavailable Unavailable Peña, Young Mi Unavailable PEÑA, YOUNG [place] Unavailable Unavailable NO, PHYSICIAN Unavailable Unavailable PEÑA, YOUNG [place] Unavailable Unavailable NO, PHYSICIAN Unavailable Unavailable PEÑA, YOUNG [place] Unavailable Unavailable PEÑA, YOUNG [place] Unavailable Unavailable PÑEA, YOUNG [place] Unavailable Unavailable PEÑA, YOUNG [place] Unavailable Unavailable PEÑA, YOUNG [place] Unavailable Unavailable YOANA BARR Unavailable Unavailable PEÑA, YOUNG [place] Unavailable Unavailable KEKE, MICHAEL BRYAN Unavailable Unavailable KEKE, MICHAEL BRYAN Unavailable Unavailable PEÑA, YOUNG [place] Unavailable Unavailable KEKE, MICHAEL BRYAN Unavailable Unavailable KEKE, MICHAEL BRYAN Unavailable Unavailable PEÑA, YOUNG [place] Unavailable Unavailable KEKE, MICHAEL BRYAN Unavailable Unavailable YOANA SANTORO P Unavailable Unavailable KEKE, MICHAEL BRYAN Unavailable Unavailable PEÑA, YOUNG [place] Unavailable Unavailable PEÑA, YOUNG [place] Unavailable Unavailable DEL CHRISTIANSON Unavailable Unavailable Peña, [...] Referring Unavailable SELF, REFERRED Primary Care Unavailable UT Procedure Practitioner Unavailab JULIANO Hernandez Surgeon Unavailable JULIANO LUCAS Attending Unavailable JULIANO LUCAS Admitting Unavailable WAYLON CAVAZOS Attending Unavailable AED TAN Referring Unavailable LAY, SHO Attending Unavailable [...] 06-24-2017 Chronic Other aftercare (1 source) 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 Telemedicineon 11-29-2023 Telemedicine [id number] Laney Larios 1955 F Date Provider Department Center 11/29/2023 SHO MARAVILLA [facility] Family History Problem Relation Age of Onset Colon cancer Neg Hx Family Status - Relation Status Age at Neg Hx Level of Service:51515 UT OFFICE/OUTPT VISIT,PROCEDURE ONLY Reason for Visit and Comments: Cirrhosis [239] Normal [facility] CBC AND AUTO DIFFon 09-29-19 24 Eosinophils (Bld) [#/Vol] 0.1 10*3/uL Normal 0.0-0.4 [facility] Comment on above: Performed By: #### C BCA #### [facility] ([id number]) [address] [place] [address] 88889 Eosinophils/100 WBC (Bld) 3.0 % Normal [facility] Comment on above: Performed By: #### C BCA #### [facility] ([id number]) [address] [place] [address] 27505 Erythrocyte distribution width (RBC) [Ratio] 17.3 % High 11.5-15.0 [facility] Comment on above: Performed By: #### C BCA #### [facility] ([id number]) [address] [place] [address] 71588 Hematocrit (Bld) [Volume fraction] 24.5 % Low 35-47 [facility] Comment on above: Performed By: #### C BCA #### [facility] ([id number]) [address] [place] [address] 06774 Hemoglobin (Bld) [Mass/Vol] 8.4 g/dL Low 11.7-15.5 [facility] Comment on above: Performed By: #### C BCA #### [facility] ([id number]) [address] [place] [address] 97813 IMMATURE MONONUCLEAR 1.0 % Normal [facility] Comment on above: Performed By: #### C BCA #### [facility] ([id number]) [address] [place] [address] 19124 LYMPHOCYTE, ATYPICAL 5.0 % Normal [facility] Comment on above: Performed By: #### C BCA #### [facility] ([id number]) [address] [place] [address] 01312 Lymphocytes (Bld) [#/Vol] 0.4 10*3/uL Low 1.0-3.5 [facility] Comment on above: Performed By: #### C BCA #### [facility] ([id number]) [address] [place] [address] 32553 Lymphocytes/100 WBC (Bld) 18.0 % Normal [facility] Comment on above: Performed By: #### C BCA #### [facility] ([id number]) [address] [place] [address] 39482 MCH (RBC) [Entitic mass] 35.7 pg High 27-34 [facility] Comment on above: Performed By: #### C BCA #### [facility] ([id number]) [address] [place] [address] 68226 MCHC (RBC) [Mass/Vol] 34.5 g/dL Normal 32-36 [facility] Comment on above: Performed By: #### C BCA #### [facility] ([id number]) [address] [place] [address] 38202 MCV (RBC) [Entitic vol] 104 fL High 80-100 [facility] Comment on above: Performed By: #### C BCA #### [facility] ([id number]) [address] [place] [address] 87693 Monocytes (Bld) [#/Vol] 0.2 10*3/uL Normal 0-0.9 [facility] Comment on above: Performed By: #### C BCA #### [facility] ([id number]) [address] [place] [address] 52102 Monocytes/100 WBC (Bld) 9.0 % Normal [facility] Comment on above: Performed By: #### C BCA #### [facility] ([id number]) [address] [place] [address] 68070 Neutrophils (Bld) [#/Vol] 1.2 10*3/uL Low 1.5-6.6 [facility] Comment on above: Performed By: #### C BCA #### [facility] ([id number]) [address] [place] [address] 52383 Platelet mean volume (Bld) [Entitic vol] 9.7 fL Normal 7-12 [facility] Comment on above: Performed By: #### C BCA #### [facility] ([id number]) [address] [place] [address] 30704 Platelets (Bld) [#/Vol] 30 10*3/uL Low 150-450 [facility] Comment on above: Result Comment: PLAT ELETS REVIEWED Performed By: #### C BCA #### [facility] ([id number]) [address] [place] [address] 33267 RBC COUNT 2.37 X10E12/L Low 3.80-5.20 [facility] Comment on above: Performed By: #### C BCA #### [facility] ([id number]) [address] [place] [address] 51747 RBC morphology finding Nom (Bld) REVIEWED Normal [facility] Comment on above: Performed By: #### C BCA #### [facility] ([id number]) [address] [place] [address] 27222 SEG NEUTROPHIL 64.0 % Normal [facility] Comment on above: Performed By: #### C BCA #### [facility] ([id number]) [address] [place] [address] [place] [address] WBC (Bld) [#/Vol] 1.9 10*3/uL Low 4.0-11.0 [facility] Comment on above: Performed By: #### C BCA #### [facility] ([id number]) [address] [place] [address], [place] [address] CBC WITH AUTO DIFFERENTIALon 09-28-2023 Erythrocyte distribution width (RBC) [Ratio] 17.2 % High 11.5-15.0 [facility] Comment on above: Performed By: #### L [id number] #### [facility] ([facility]) [address] [place] [address] ERYTHROCYTE MEAN CORPUSCULAR HEMOGLOBIN CONCENTRATION (G/DL) BY AUTOMATED 34.0 g/dL Normal 32.0-35.0 [facility] Comment on above: Performed By: #### L [id number] #### [facility] ([facility]) [address] [place] [address] Hematocrit (Bld) [Volume fraction] 25.6 % Low 36.0-48.0 [facility] Comment on above: Performed By: #### L [id number] #### [facility] ([facility]) [address] [place] [address] Hemoglobin (Bld) [Mass/Vol] 8.7 g/dL Low 12.0-15.0 [facility] Comment on above: Performed By: #### L [id number] #### [facility] ([facility]) [address] [place] [address] IMMATURE PLATELET FRACTION % 3.5 % Normal 0.8-6.3 [facility] Comment on above: Performed By: #### L [id number] #### [facility] ([facility]) [address] [place] [address] MCH (RBC) [Entitic mass] 36.0 pg High 27.0-33.0 [facility] Comment on above: Performed By: #### L [id number] #### [facility] ([facility]) [address] [place] [address] MCV (RBC) [Entitic vol] 105.8 fL High 82.0-98.0 [facility] Comment on above: Performed By: #### L [id number] #### [facility] ([facility]) [address] [place] [address] NRBC (PER 100 WBCS) BY AUTOMATED COUNT 0.0 % Normal 0 [facility] Comment on above: Performed By: #### L [id number] #### [facility] ([facility]) [address] [place] [address] PLATELETS (10*3/UL) IN BLOOD AUTOMATED COUNT 44 10*3/uL Low 150-400 [facility] Comment on above: Performed By: #### L [id number] #### [facility] ([facility]) [address] [place] [address] RBC (Bld) [#/Vol] 2.42 10*6/uL Low 3.80-5.00 [facility] Comment on above: Performed By: #### L [id number] #### [facility] ([facility]) [address] [place] [address] WBC (Bld) [#/Vol] 1.79 10*3/uL Low 4.00-10.60 [facility] Comment on above: Performed By: #### L [id number] #### [facility] ([facility]) [address] [place] [address] MANUAL DIFFERENTIALon 2023 ANISOCYTOSIS PRESENCE IN BLOOD BY LIGHT MICROSCOPY Moderate Normal [facility] Comment on above: Performed By: #### L [id number] ####[facility] ([facility])[address] [place] [address] BASOPHILS (10*3/UL) IN BLOOD BY CALCULATION 0.00 10*3/uL Normal 0.00-0.20 [facility] Comment on above: Performed By: #### L [id number] ####[facility] ([facility])[address] [place] [address] BASOPHILS/100 LEUKOCYTES IN BLOOD BY AUTOMATED COUNT 0.0 % Normal 0.0-1.0 [facility] Comment on above: Performed By: #### L [id number] ####[facility] ([facility])[address] [place] [address] EOSINOPHILS (10*3/UL) IN BLOOD BY CALCULATION 0.07 10*3/uL Normal 0.00-0.50 [facility] Comment on above: Performed By: #### L [id number] ####[facility] ([facility])[address] [place] [address] EOSINOPHILS/100 LEUKOCYTES IN BLOOD BY AUTOMATED COUNT 4.0 % Normal 0.0-6.0 [facility] Comment on above: Performed By: #### L [id number] ####[facility] ([facility])[address] [place] [address] IMMATURE GRANULOCYTES (10*3/UL) IN BLOOD BY CALCULATION 0.00 10*3/uL Normal 0.00-0.20 [facility] Comment on above: Performed By: #### L [id number] ####[facility] ([facility])[address] [place] [address] IMMATURE GRANULOCYTES/100 LEUKOCYTES IN BLOOD BY AUTOMATED COUNT 0.0 % Normal 0.0-1.0 [facility] Comment on above: Performed By: #### L [id number] ####[facility] ([facility])[address] [place] [address] LYMPHOCYTES (10*3/UL) IN BLOOD BY CALCULATION 0.54 10*3/uL Low 1.20-4.00 [facility] Comment on above: Performed By: #### L [id number] ####[facility] ([facility])[address] [place] [address] LYMPHOCYTES/100 LEUKOCYTES IN BLOOD BY AUTOMATED COUNT 30.2 % Normal 20.0-45.0 [facility] Comment on above: Performed By: #### L [id number] ####[facility] ([facility])[address] [place] [address] MACROCYTES (PRESENCE) IN BLOOD BY LIGHT MICROSCOPY Slight Normal [facility] Comment on above: Performed By: #### L [id number] ####[facility] ([facility])[address] [place] [address] MONOCYTES (10*3/UL) IN BLOOD BY CALCUATION 0.12 10*3/uL Normal 0.10-1.00 [facility] Comment on above: Performed By: #### L [id number] ####[facility] ([facility])[address] [place] [address] MONOCYTES/100 LEUKOCYTES IN BLOOD BY AUTOMATED COUNT 6.7 % Normal 5.0-12.0 [facility] Comment on above: Performed By: #### L [id number] ####[facility] ([facility])[address] [place] [address] NEUTROPHILS (10*3/UL) IN BLOOD BY CALCULATION 1.1 10*3/uL Low 1.6-7.6 [facility] Comment on above: Performed By: #### L [id number] ####[facility] ([facility])[address] [place] [address] NEUTROPHILS/100 LEUKOCYTES IN BLOOD BY AUTOMATED COUNT 59.1 % Normal 40.0-72.0 [facility] Comment on above: Performed By: #### L [id number] ####[facility] ([facility])[address] [place] [address] PLASMA CELLS/100 LEUKOCYTES IN BLOOD 0 % Normal 0 [facility] Comment on above: Performed By: #### L [id number] ####[facility] ([facility])[address] [place] [address] PLATELETS GIANT PRESENCE IN BLOOD BY LIGHT MICROSCOPY Present Normal [facility] Comment on above: Performed By: #### L [id number] ####[facility] ([facility])[address] [place] [address] POIKILOCYTOSIS (PRESENCE) IN BLOOD BY LIGHT MICROSCOPY Slight Normal [facility] Comment on above: Performed By: #### L [id number] ####[facility] ([facility])[address] [place] [address] POLYCHROMASIA IN BLOOD BY LIGHT MICROSCOPY Slight Normal [facility] Comment on above: Performed By: #### L [id number] ####[facility] ([facility])[address] [facility] [place] [address] VARIANT LYMPHOCYTES (10*3/UL) IN BLOOD BY CALCULATION 0.00 10*3/uL Normal 0.00 [facility] Comment on above: Performed By: #### L [id number] ####[facility] ([facility])[address] [place] [address] VARIANT LYMPHOCYTES/100 LEUKOCYTES IN BLOOD CELLAVISION 0.0 % Normal 0.0-0.0 [facility] Comment on above: Performed By: #### L [id number] ####[facility] ([facility])[address] [place] [address] NURSNOTEon 09-28-2023 NURSGLADYS senior care Karis harvey, picked up pt to take back to facility. [facility] ANTONIO Spoke with transport ation who will be taking pt back to facility and she is booked up until 3:00. The care home nurse director is coming to bead picker pt and eta is 1 hour from now. [facility] Orders Onlyon 09-28-2023 Orders Only [id number] Laney Larios 1955 F Date Provider Department Center 09/28/2023[facility] Family History Problem Relation Age of Onset Colon cancer Neg Hx Family Status - Relation Status Age at Neg Hx [facility] POCT GLUCOSE METER UNSOLICIT ED RESULTSon 09-28-2023 Glucose [Mass/Vol] 129 mg/dL High 70-105 [facility] Comment on above: Order Comment: Waive d Testing in the ED is performed under the ED CLIA certificate #[id number]. Result Comment: pbar retcorson Performed By: #### L [id number] ####[facility] ([facility])[address] [place] [address] PROTIME-INRon 09-28-2023 INR IN PPP BY COAGULATION ASSAY 1.13 High 0.90-1.10 [facility] Comment on above: Result Comment: [facility] P RECOMMENDED INR FOR WARFARIN THERAPY CONDITION [...] 1995;108:231S-246S. Performed By: #### L [id number] #### [facility] ([employer]) [address] [place] [address] PROTHROMBIN TIME (PT) IN PPP BY COAGULATION ASSAY 14.5 Seconds Normal 12.3-14.8 [facility] Comment on above: Performed By: #### L [id number] #### [facility] ([facility]) [address] [place] [address] Orders Onlyon 09-22-2023 Orders Only [id number] Laney Larios 1955 F Date Provider Department Center 09/22/2023 [facility] Family History Problem Relation Age of Onset Colon cancer Neg Hx Family Status - Relation Status Age at Neg Hx Normal [facility] Prep for Procedureon 09-20- 024 Prep for Procedure [id number] Laney Larios 1955 F Date Provider Department Center 09/21/2023 [facility] Family History Problem Relation Age of Onset Colon cancer Neg Hx Family Status - Relation Status Age at Neg Hx Normal [facility] MR MRCP WITH MRI ABD WO [...] Diane MD on 08/30/2023 9:42 AM Normal [facility] Office Visiton 08-17-2023 Follow-up visit [id number] Laney Larios 1955 F Date Provider Department Center 08/17/2023 SHO MARAVILLA [facility] Family History Problem Relation Age of Onset Colon cancer Neg Hx Family Status - Relation Status Age at Neg Hx Level of Service:47201 UT OFFICE/OUTPATIENT ESTABLISHED MOD MDM [address] [facility] Office Visiton 04-01-2023 Follow-up visit [id number] Laney Larios 1955 F Date Provider Department Center 04/01/2023 SHO MARAVILLA [facility] Family History Problem Relation Age of Onset Colon cancer Neg Hx Family Status - Relation Status Age at Neg Hx Level of Service:16328 UT OFFICE/OUTPATIENT ESTABLISHED MOD MDM 30-39 MIN Reason for Visit and Comments: Anemia [909887] autoummune Hepatitis [Other] Cirrhosis [239] Normal [facility] Office Visiton 12-31-2022 Follow-up visit [id number] Laney Larios 1955 F Date Provider Department Center 12/31/2022 SHO MARAVILLA [facility] Family History Problem Relation Age of Onset Colon cancer Neg Hx Family Status - Relation Status Age at Neg Hx Level of Service:90747 UT OFFICE/OUTPATIENT ESTABLISHED HIGH MDM 40-54 MIN Reason for Visit and Comments: Follow-up [084661] - Pt here for follow up to labs and US. Normal [facility] HISTOLOGY - TISSUE EXAMon LAB AP CASE REPORT Normal [facility] Comment on above: Result Comment: Surg ical Pathology Case: [id number] Authorizing Provider: Waylon Cavazos MD Collected: 12/11/2022 1105 Ordering Location: [facility] Received: 12/11/2022 [facility] Endoscopy Pathologist: Neetu Fields MD Specimen: Small Intestine, Duodenum, duodenal lesion EMR r/o adenoma Performed By: #### L [id number] ####[facility] ([facility])[address] [place] [address] LAB AP CLINICAL INFORMATION Order Diagnoses Normal 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 Comment on above: Result Comment: A. [...] remaining sequential sections Performed By: #### L [id number] ####[facility] ([facility])[address] [place] [address] LAB AP MICROSCOPIC DESCRIPTION Microscopic examination performed. 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 - No malignancy or dysplasia identified Performed By: #### L [id number] ####[facility] ([facility])[address] [place] [address] HPon 12-11-2022 HP History Of Present I [...] MAC Attending Physician: Dr. 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 Jorge Coelho MD Procedure Details: Informed [...] assess th (more content not included)... Normal [facility] POCT GLUCOSE METER UNSOLICIT ED RESULTSon 12-11-2022 Glucose [Mass/Vol] 123 mg/dL High 70-105 [facility] Comment on above: Result Comment: [place] Performed By: #### L [id number] #### [facility] ([facility]) [address] [place] [address] CULTURE URINEon 09-04-2021 CULTURE URINE Isolate 1 [...] Trimethoprim/Sulfamethoxazol e <=20 S F Normal [facility] Comment on above: Performed By: #### C BC #### [facility] [address] [place] [address] Dr. Ronald Wong AMMONIAon 09-03-2021 Ammonia (P) [Moles/Vol] 28 umol/L Normal 10-30 [facility] Comment on above: Performed By: #### A MM #### [facility] [address] [place] [address] Dr. Ronald Wong CBC AUTO DIFFon 09-03-2021 BASO # 0.0 103/ul Normal 0.0-0.1 [facility] Comment on above: Performed By: #### C BC #### [facility] [address] [place] [address] Dr. Ronald Wong Basophils/100 WBC (Bld) 0.6 % Normal 0.2-2.0 [facility] Comment on above: Performed By: #### C BC #### [facility] [address] [place] [address] Dr. Ronald Wong EO # 0.1 103/ul Normal 0.0-0.7 [facility] Comment on above: Performed By: #### C BC #### [facility] [address] [place] [address] Dr. Ronald Wong Eosinophils/100 WBC (Bld) 3.3 % Normal 0.9-7.0 [facility] Comment on above: Performed By: #### C BC #### [facility] [address] [place] [address] Dr. Ronald Wong Erythrocyte distribution width (RBC) [Ratio] 15.2 % Critically high 11.0-15.0 [facility] Comment on above: Performed By: #### C BC #### [facility] [address] [address] [address] Ronald Wong Hematocrit (Bld) [Volume fraction] 25.2 % Critically low 36.0-48.0 [facility] Comment on above: Performed By: #### C BC #### [facility] [address] [address] [address] Ronald Wong Hemoglobin (Bld) [Mass/Vol] 8.4 g/dL Critically low 12.0-16.0 [facility] Comment on above: Performed By: #### C BC #### [facility] [address] [place] [address] Dr. Ronald Wong IG # 0.00 10e3/ul Normal 0.00-0.03 [facility] Comment on above: Performed By: #### C BC #### [facility] [address] [place] [address] Dr. Ronald Wong IG % 0.0 % Normal 0.0-0.5 [facility] Comment on above: Performed By: #### C BC #### [facility] [address] [place] [address] Dr. Ronald Wong LYMPH # 0.7 103/ul Critically low 1.2-3.[address] [facility] Comment on above: Performed By: #### C BC #### [facility] [address] [place] [address] Dr. Ronald Wong Lymphocytes/100 WBC (Bld) 38.7 % Normal 20.5-60.0 [facility] Comment on above: Performed By: #### C BC #### [facility] [address] [place] [address] Dr. Ronald Wong MANUAL DIFF REQ NO Normal [facility] Comment on above: Performed By: #### C BC #### [facility] [address] [place] [address] Dr. Ronald Wong MCH (RBC) [Entitic mass] 38.5 pg Critically high 26.7-34.0 [facility] Comment on above: Performed By: #### C BC #### [facility] [address] [address] [address] Ronald Wong MCHC (RBC) [Mass/Vol] 33.3 g/dL Normal 29.9-35.2 [facility] Comment on above: Performed By: #### C BC #### [facility] [address] [address] [address] Ronald Wong MCV (RBC) [Entitic vol] 115.6 fL Critically high 81.0-99.0 [facility] Comment on above: Performed By: #### C BC #### [facility] [address] [place] [address] Dr. Ronald Wong MONO # 0.2 103/ul Critically low 0.3-0.[address] [facility] Comment on above: Performed By: #### C BC #### [facility] [address] [place] [address] Dr. Ronald Wong Monocytes/100 WBC (Bld) 11.0 % Normal 1.7-12.0 [facility] Comment on above: Performed By: #### C BC #### [facility] [address] [place] [address] Dr. Ronald Wong NEUT # 0.8 103/ul Critically low 1.4-6.[address] [facility] Comment on above: Performed By: #### C BC #### [facility] [address] [place] [address] Dr. Ronald Wong Neutrophils/100 WBC (Bld) 46.4 % Normal 43.0-75.0 [facility] Comment on above: Performed By: #### C BC #### [facility] [address] [place] [address] Dr. Ronald Wong Platelet mean volume (Bld) [Entitic vol] 11.6 fL Normal 9.5-13.5 [facility] Comment on above: Performed By: #### C BC #### [facility] [address] [place] [address] Dr. Ronald Wong PLT 64 103/ul Critically low 150-450 [facility] Comment on above: Performed By: #### C BC #### [facility] [address] [address] [address] Ronald Wong RBC 2.18 106/ul Critically low 4.20-5.40 [facility] Comment on above: Performed By: #### C BC #### [facility] [address] [address] [address] Ronald Wong WBC 1.8 103/ul Critically low 4.0-11.[address] [facility] Comment on above: Performed By: #### C BC #### [facility] [address] [place] [address] Dr. Ronald Wong PROF 14(COMP METB)on 022 Albumin [Mass/Vol] 2.9 g/dL Critically low 3.5-5.0 [facility] Comment on above: Performed By: #### C JIMAN #### [facility] [address] [place] [address] Dr. Ronald Wong Albumin/Globulin [Mass ratio] 0.8 {ratio} [facility] Comment on above: Performed By: #### C JIMAN #### [facility] [address] [address] [address] oRnald Wong ALP [Catalytic activity/Vol] 89 U/L Normal 38-126 [facility] Comment on above: Performed By: #### C JIMAN #### [facility] [address] [place] [address] Dr. Ronald Wong ALT [Catalytic activity/Vol] 13 U/L Normal 9-52 [facility] Comment on above: Performed By: #### C BCMAN #### [facility] [address] [place] [address] Dr. Ronlad Wong Anion gap [Moles/Vol] 9.5 mmol/L Normal [facility] Comment on above: Performed By: #### C JIMAN #### [facility] [address] [place] [address] Dr. Ronald Wong AST [Catalytic activity/Vol] 20 U/L Normal 14-36 [facility] Comment on above: Performed By: #### C BCMAN #### [facility] [address] [address] [address] Ronald Wong Bilirubin [Mass/Vol] 1.0 mg/dL Normal 0.2-1.3 [facility] Comment on above: Performed By: #### C BCMAN #### [facility] [address] [address] [address] Ronald Wong Calcium [Mass/Vol] 9.1 mg/dL Normal 8.4-10.2 [facility] Comment on above: Performed By: #### C BCMAN #### [facility] [address] [address] [address] Ronald Wong Chloride [Moles/Vol] 113 mmol/L Critically high 98-107 [facility] Comment on above: Performed By: #### C BCSISSY #### [facility] [address] [address] [address] Ronald Wong CO2 [Moles/Vol] 28.1 mmol/L Normal 22.0-30.0 [facility] Comment on above: Performed By: #### C BCSISSY #### [facility] [address] [address] [address] Ronald Wong Creatinine [Mass/Vol] 1.15 mg/dL Critically high 0.52-1.04 [facility] Comment on above: Performed By: #### C BCSISSY #### [facility] [address] [address] [address] Ronald Wong EGFR-AF ARGENTINE 57 mL/min/1.73m2 Critically low >=60 [facility] Comment on above: Performed By: #### C BCMAN #### [facility] [address] [address] [address] Ronald Wong EGFR-NON AF ARGENTINE 47 mL/min/1.73m2 Critically low >=60 [facility] Comment on above: Performed By: #### C BCMAN #### [facility] [address] [address] [address] Ronald Wong Globulin (S) [Mass/Vol] 3.6 g/dL Normal [facility] Comment on above: Performed By: #### C BCMAN #### [facility] [address] [address] [address] Ronald Wong Glucose [Mass/Vol] 92 mg/dL Normal 74-106 [facility] Comment on above: Performed By: #### C JIMAN #### [facility] [address] [address] [address] Ronald Wong Potassium [Moles/Vol] 3.6 mmol/L Normal 3.4-5.0 [facility] Comment on above: Performed By: #### C JIMAN #### [facility] [address] [address] [address] Ronald Wong Protein [Mass/Vol] 6.5 g/dL Normal 6.1-8.2 [facility] Comment on above: Performed By: #### C JIL #### [facility] [address] [place] [address] Dr. Ronald Wong Sodium [Moles/Vol] 147 mmol/L Critically high 137-145 [facility] Comment on above: Performed By: #### C JIL #### [facility] [address] [address] [address] Ronald Wong Urea nitrogen [Mass/Vol] 16.0 mg/dL Normal 7.0-17.0 [facility] Comment on above: Performed By: #### C JIL #### [facility] [address] [place] [address] Dr. Ronald Wong Urea nitrogen/Creatinin e [Mass ratio] 13.9 mg/mg Normal [facility] Comment on above: Performed By: #### C JIL #### [facility] [address] [address] [address] Ronald Wong AMMONIAon 09-02-2021 Ammonia (P) [Moles/Vol] 71 umol/L Critically high 10-30 [facility] Comment on above: Result Comment: test repeated Performed By: #### C BC #### [facility] [address] [place] [address] Dr. Ronald Wong CBC AUTO DIFFon 09-02-2021 BASO # 0.0 103/ul Normal 0.0-0.1 [facility] Comment on above: Performed By: #### C BC #### [facility] [address] [place] [address] Dr. Ronald Wong Basophils/100 WBC (Bld) 0.0 % Critically low 0.2-2.0 [facility] Comment on above: Performed By: #### C BC #### [facility] [address] [place] [address] Dr. Ronald Wong EO # 0.0 103/ul Normal 0.0-0.7 [facility] Comment on above: Performed By: #### C BC #### [facility] [address] [place] [address] Dr. Ronald Wong Eosinophils/100 WBC (Bld) 3.1 % Normal 0.9-7.0 [facility] Comment on above: Performed By: #### C BC #### [facility] [address] [place] [address] Dr. Ronald Wong Erythrocyte distribution width (RBC) [Ratio] 15.1 % Critically high 11.0-15.0 [facility] Comment on above: Performed By: #### C BC #### [facility] [address] [place] [address] Dr. Ronald Wong Hematocrit (Bld) [Volume fraction] 24.5 % Critically low 36.0-48.0 [facility] Comment on above: Performed By: #### C BC #### [facility] [address] [place] [address] Dr. Ronald Wong Hemoglobin (Bld) [Mass/Vol] 8.0 g/dL Critically low 12.0-16.0 [facility] Comment on above: Performed By: #### C BC #### [facility] [address] [place] [address] Dr. Ronald Wong IG # 0.00 10e3/ul Normal 0.00-0.03 [facility] Comment on above: Performed By: #### C BC #### [facility] [address] [place] [address] Dr. Ronald Wong IG % 0.0 % Normal 0.0-0.5 [facility] Comment on above: Performed By: #### C BC #### [facility] [address] [address] [address] Ronald Wong LYMPH # 0.6 103/ul Critically low 1.2-3.[address] [facility] Comment on above: Performed By: #### C BC #### [facility] [address] [address] [address] Ronald Wong Lymphocytes/100 WBC (Bld) 47.3 % Normal 20.5-60.0 [facility] Comment on above: Performed By: #### C BC #### [facility] [address] [place] [address] Dr. Ronald Wong MANUAL DIFF REQ NO Normal [facility] Comment on above: Performed By: #### C BC #### [facility] [address] [place] [address] Dr. Ronald Wong MCH (RBC) [Entitic mass] 38.6 pg Critically high 26.7-34.0 [facility] Comment on above: Performed By: #### C BC #### [facility] [address] [place] [address] Dr. Ronald Wong MCHC (RBC) [Mass/Vol] 32.7 g/dL Normal 29.9-35.2 [facility] Comment on above: Performed By: #### C BC #### [facility] [address] [place] [address] Dr. Ronald Wong MCV (RBC) [Entitic vol] 118.4 fL Critically high 81.0-99.0 [facility] Comment on above: Performed By: #### C BC #### [facility] [address] [place] [address] Dr. Ronald Wong MONO # 0.2 103/ul Critically low 0.3-0.[address] [facility] Comment on above: Performed By: #### C BC #### [facility] [address] [address] [address] Ronald Wong Monocytes/100 WBC (Bld) 12.4 % Critically high 1.7-12.0 [facility] Comment on above: Performed By: #### C BC #### [facility] [address] [address] [address] Ronald Wong NEUT # 0.5 103/ul Critically low 1.4-6.[address] [facility] Comment on above: Performed By: #### C BC #### [facility] [address] [address] [address] Ronald Wong Neutrophils/100 WBC (Bld) 37.2 % Critically low 43.0-75.0 [facility] Comment on above: Performed By: #### C BC #### [facility] [address] [place] [address] Dr. Ronald Wong Platelet mean volume (Bld) [Entitic vol] 10.3 fL Normal 9.5-13.5 [facility] Comment on above: Performed By: #### C BC #### [facility] [address] [place] [address] Dr. Ronald Wong PLT 38 103/ul Critically low 150-[address] [facility] Comment on above: Performed By: #### C BC #### [facility] [address] [place] [address] Dr. Ronald Wong RBC 2.07 106/ul Critically low 4.20-5.40 [facility] Comment on above: Performed By: #### C BC #### [facility] [address] [place] [address] Dr. Ronald Wong WBC 1.5 103/ul Critically low 4.0-11.[address] [facility] Comment on above: Performed By: #### C BC #### [facility] [address] [place] [address] Dr. Ronald Wong CULTURE BLOODon 09-02-2021 Microscopic examination of blood, culture Culture Observations: No growth at 5 days. Normal [facility] Comment on above: Performed By: #### C BC #### [facility] [address] [place] [address] Dr. Ronald Wong Microscopic examination of blood, culture Culture Observations: No growth at 5 days. Normal [facility] Comment on above: Performed By: #### C BC #### [facility] [address] [place] [address] Dr. Ronald Wong PROF 14(COMP METB)on 022 Albumin [Mass/Vol] 2.8 g/dL Critically low 3.5-5.0 [facility] Comment on above: Performed By: #### C MP #### [facility] [address] [place] [address] Dr. Rnoald Wong Albumin/Globulin [Mass ratio] 0.8 {ratio} Normal [facility] Comment on above: Performed By: #### C MP #### [facility] [address] [place] [address] Dr. Ronald Wong ALP [Catalytic activity/Vol] 88 U/L Normal 38-126 [facility] Comment on above: Performed By: #### C MP #### [facility] [address] [place] [address] Dr. Ronald Wong ALT [Catalytic activity/Vol] 10 U/L Normal 9-52 [facility] Comment on above: Performed By: #### C MP #### [facility] [address] [place] [address] Dr. Ronald Wong Anion gap [Moles/Vol] 6.7 mmol/L Normal [facility] Comment on above: Performed By: #### C MP #### [facility] [address] [place] [address] Dr. Ronald Wong AST [Catalytic activity/Vol] 20 U/L Normal 14-36 [facility] Comment on above: Performed By: #### C MP #### [facility] [address] [place] [address] Dr. Ronald Wong Bilirubin [Mass/Vol] 1.3 mg/dL Normal 0.2-1.3 [facility] Comment on above: Performed By: #### C MP #### [facility] [address] [place] [address] Dr. Ronald Wong Calcium [Mass/Vol] 8.7 mg/dL Normal 8.4-10.2 [facility] Comment on above: Performed By: #### C MP #### [facility] [address] [address] [address] Ronald Wong Chloride [Moles/Vol] 111 mmol/L Critically high 98-107 [facility] Comment on above: Performed By: #### C MP #### [facility] [address] [address] [address] Ronald Wong CO2 [Moles/Vol] 30.5 mmol/L Critically high 22.0-30.0 [facility] Comment on above: Performed By: #### C MP #### [facility] [address] [address] [address] Ronald Wong Creatinine [Mass/Vol] 1.03 mg/dL Normal 0.52-1.04 [facility] Comment on above: Performed By: #### C MP #### [facility] [address] [address] [address] Ronald Wong EGFR-AF ARGENTINE >60 Normal >=60 [facility] Comment on above: Performed By: #### C MP #### [facility] [address] [address] [address] Ronald Wong EGFR-NON AF ARGENTINE 54 mL/min/1.73m2 Critically low >=60 [facility] Comment on above: Performed By: #### C MP #### [facility] [address] [address] [address] Ronald Wong Globulin (S) [Mass/Vol] 3.7 g/dL Normal [facility] Comment on above: Performed By: #### C MP #### [facility] [address] [address] [address] Ronald Wong Glucose [Mass/Vol] 103 mg/dL Normal 74-106 [facility] Comment on above: Performed By: #### C MP #### [facility] [address] [address] [address] Ronald Wong Potassium [Moles/Vol] 4.2 mmol/L Normal 3.4-5.0 [facility] Comment on above: Performed By: #### C MP #### [facility] [address] [address] [address] Ronald Wong Protein [Mass/Vol] 6.5 g/dL Normal 6.1-8.2 [facility] Comment on above: Performed By: #### C MP #### [facility] [address] [address] [address] Ronald Wong Sodium [Moles/Vol] 144 mmol/L Normal 137-145 [facility] Comment on above: Performed By: #### C MP #### [facility] [address] [place] [address] Dr. Ronald Wong Urea nitrogen [Mass/Vol] 17.0 mg/dL Normal 7.0-17.0 [facility] Comment on above: Performed By: #### C MP #### [facility] [address] [place] [address] Dr. Ronald Wong Urea nitrogen/Creatinin e [Mass ratio] 16.5 mg/mg Normal [facility] Comment on above: Performed By: #### C MP #### [facility] [address] [place] [address] Dr. Ronald Wong PROTIMEon 09-02-2021 INR Coag (PPP) [Relative time] 1.06 {INR} Normal [facility] Comment on above: Performed By: #### P TT, PT #### [facility] [address] [place] [address] Dr. Ronald Wong INR GUIDELINES SEE BELOW Normal [facility] Comment on above: Result Comment: HELADIO RED INR: 2.0 - 3.0 CONDITIONS NOT LISTED BELOW 2.5 - 3.5 FOR PROSTHETIC HEART VALVE REPLACEMENT 2.5 - 3.5 RECURRENT THROMBOSIS Performed By: #### P TT, PT #### [facility] [address] [place] [address] Dr. Ronald Wong PT Coag (PPP) [Time] 11.4 s Normal 9.0-11.6 [facility] Comment on above: Performed By: #### P TT, PT #### [facility] [address] [place] [address] Dr. Ronald Wong PTTon 09-02-2021 aPTT Coag (Bld) [Time] 24.3 s Normal 22.3-36.2 [facility] Comment on above: Performed By: #### P TT, PT #### [facility] [address] [address] [address] Ronald Wong US SINGLE QUAD RT [...] JAE VERA Date: 2021-09-02 12:20 Normal [facility] AMMONIAon 09-01-2021 Ammonia (P) [Moles/Vol] 107 umol/L Critically high 10-30 [facility] Comment on above: Result Comment: test repeated Performed By: #### A MM #### [facility] [address] [place] [address] Dr. Ronald Wong CARDIAC JACKIE ADMITon 022 CK [Catalytic activity/Vol] 35 U/L Normal 30-135 [facility] Comment on above: Performed By: #### C MADM #### [facility] [address] [place] [address] [address] [address] Ronald Wong CK.MB [Mass/Vol] 0.57 ng/mL Normal <=2.37 [facility] Comment on above: Performed By: #### C MADM #### [facility] [address] [place] [address] Dr. Ronald Wong HSTROP 5.7 pg/mL Normal 4.0-35.5 [facility] Comment on above: Result Comment: CUT- OFF POINTS HAVE BEEN ESTABLISHED BASED ON THE FOURTH UNIVERSAL DEFINITIONS OF MYOCARDIAL INFARCTION. THE UPPER REFERENCE LIMIT (URL) OF TROPONIN, DEFINED THE 99TH PERCENTILE OF cTnI DISTRIBUTION IN A REFERENCE POPULATION, HAS BEEN CONFIRMED THE DECISION THRESHOLD FOR [place] DIAGNOSIS. Performed By: #### C TARA #### [facility] [address] [place] [address] Dr. Ronald Wong TAMI 35.0 ng/mL Normal <=61.5 [facility] Comment on above: Performed By: #### C TARA #### [facility] [address] [place] [address] Dr. Ronald Wong CBC W MANUAL DIFFon 09-01-19 22 ANISOCYTOSIS 1+ Normal [facility] Comment on above: Performed By: #### C JIL #### [facility] [address] [place] [address] Dr. Ronald Wong ATYPICAL LYMPH # Normal [facility] Comment on above: Performed By: #### C JIL #### [facility] [address] [place] [address] Dr. Ronald Wong ATYPICAL LYMPH % Normal [facility] Comment on above: Performed By: #### C JIL #### [facility] [address] [place] [address] Dr. Ronald Wong BAND # 0.0 103/ul Normal 0.0-0.3 [facility] Comment on above: Performed By: #### C JIL #### [facility] [address] [place] [address] Dr. Ronald Wong BAND % 2 % Normal 0-5 [facility] Comment on above: Performed By: #### C JIL #### [facility] [address] [place] [address] Dr. Ronald Wong BASOM # 0.00 103/ul Normal 0.00-0.10 [facility] Comment on above: Performed By: #### C JIL #### [facility] [address] [address] [address] Ronald Wong BASOM % 0.0 % Critically low 0.2-2.[address] [facility] Comment on above: Performed By: #### C BCMAN #### [facility] [address] [address] [address] Ronald Wong BLAST # Normal [facility] Comment on above: Performed By: #### C BCMAN #### [facility] [address] [address] [address] Ronald Wong BLAST % Normal [facility] Comment on above: Performed By: #### C BCSISSY #### [facility] [address] [place] [address] Dr. Ronald Wong CORRECTED WBC Normal 4.0-11.0 [facility] Comment on above: Performed By: #### C BCSISSY #### [facility] [address] [place] [address] Dr. Ronald Wong EOS # 0.02 103/ul Normal 0.00-0.70 [facility] Comment on above: Performed By: #### C BCSISSY #### [facility] [address] [place] [address] Dr. Ronald Wong EOS% 1.0 % Normal 0.9-7.0 [facility] Comment on above: Performed By: #### C BCSISSY #### [facility] [address] [place] [address] Dr. Ronald Wong HCT 27.7 % Critically low 36.0-48.0 [facility] Comment on above: Performed By: #### C BCSISSY #### [facility] [address] [place] [address] Dr. Ronald Wong HGB 9.2 g/dl Critically low 12.0-16.[address] [facility] Comment on above: Performed By: #### C BCMAN #### [facility] [address] [place] [address] Dr. Ronald Wong LYMPHM # 0.59 103/ul Critically low 1.20-3.80 [facility] Comment on above: Performed By: #### Wilda LEY #### [facility] [address] [address] [address] Ronald Wong LYMPHM% 37.0 % Normal 20.5-60.0 [facility] Comment on above: Performed By: #### C JIL #### [facility] [address] [address] [address] Ronald Wong MACROCYTOSIS 2+ Normal [facility] Comment on above: Performed By: #### C JIL #### [facility] [address] [address] [address] Ronald Wong MCH 38.8 pg Critically high 26.7-34.0 [facility] Comment on above: Performed By: #### C JIL #### [facility] [address] [address] [address] Ronald Wong MCHC 33.2 g/dl Normal 29.9-35.2 [facility] Comment on above: Performed By: #### Wilda LEY #### [facility] [address] [address] [address] Ronald Wong MCV 116.9 fL Critically high 81.0-99.0 [facility] Comment on above: Performed By: #### Wilda LEY #### [facility] [address] [place] [address] Dr. Ronald Wong METAMYELOCYTE # Normal [facility] Comment on above: Performed By: #### C JIL #### [facility] [address] [address] [address] Ronald Wong METAMYELOCYTE % Normal [facility] Comment on above: Performed By: #### C JIL #### [facility] [address] [address] [address] Ronald Wong MONOM# 0.13 103/ul Critically low 0.30-0.80 [facility] Comment on above: Performed By: #### C JIL #### [facility] [address] [address] [address] Ronald Wong MONOM% 8.0 % Normal 1.7-12.0 [facility] Comment on above: Performed By: #### C BCMAN #### [facility] [address] [address] [address] Ronald Wong MPV 10.6 fL Normal 9.5-13.5 [facility] Comment on above: Performed By: #### C BCSISSY #### [facility] [address] [address] [address] Ronald Wong MYELOCYTE # Normal [facility] Comment on above: Performed By: #### C BCMAN #### [facility] [address] [address] [address] Ronald Wong MYELOCYTE % Normal [facility] Comment on above: Performed By: #### C JIL #### [facility] [address] [place] [address] Dr. Ronald Wong NRBC Normal [facility] Comment on above: Performed By: #### C JIL #### [facility] [address] [address] [address] Ronald Wong PLT 43 103/ul Critically low 150-[address] [facility] Comment on above: Performed By: #### C JIL #### [facility] [address] [place] [address] Dr. Ronald Wong RBC 2.37 106/ul Critically low 4.20-5.40 [facility] Comment on above: Performed By: #### C JIL #### [facility] [address] [place] [address] Dr. Ronald Wong RDW 15.2 % Critically high 11.0-15.0 [facility] Comment on above: Performed By: #### C BCSISSY #### [facility] [address] [address] [address] Ronald Wong SEG # 0.83 103/ul Critically low 1.40-6.50 [facility] Comment on above: Performed By: #### C JIL #### [facility] [address] [place] [address] Dr. Ronald Wong SEG % 52.0 % Normal 43.0-75.0 [facility] Comment on above: Performed By: #### C JISISSY #### [facility] [address] [place], [place] [address] Dr. Ronald Wong WBC 1.6 103/ul Critically low 4.0-11.0 [facility] Comment on above: Performed By: #### C JIL #### [facility] Laboratory [address] [place], [place] [address] STROKE HEAD WOon [...] TYLER SOLIS Date: 2021-09-01 20:14 Normal [facility] Covid-19 PCR (CVDTB)on 08-13 SARS-CoV-2 (COVID-19) RNA KORY+probe Ql (Unsp spec) Not detected Normal NOT DETECTED [facility] Comment on above: Result Comment: When diagnostic [...] for this test is supported by the Secretary To Board Of Commissioners of Health and Human Service's declaration that [...] used). Performed By: #### C BCMAN #### [facility] [address] [place] [address] Dr. Ronald Wong ER URINE PROFILEon 2 Bilirubin Ql (U) Negative Normal NEGATIVE [facility] Comment on above: Performed By: #### C BC #### [facility] [address] [place] [address] Dr. Ronald Wong Clarity (U) CLEAR Normal CLEAR [facility] Comment on above: Performed By: #### C BC #### [facility] [address] [place] [address] Dr. Ronald Wong Color (U) YELLOW Normal YELLOW [facility] Comment on above: Performed By: #### C BC #### [facility] [address] [place] [address] Dr. Ronald Wong ERUAHD A micrscopic examina tion will be performed if indicated. Normal [facility] Comment on above: Performed By: #### C BC #### [facility] [address] [place] [address] Dr. Ronald Wong Glucose Ql (U) Negative Normal NEGATIVE [facility] Comment on above: Performed By: #### C BC #### [facility] [address] [place] [address] Dr. Ronald Wong Hemoglobin Ql (U) Negative Normal NEGATIVE [facility] Comment on above: Performed By: #### C BC #### [facility] [address] [place] [address] Dr. Ronald Wong Ketones Ql (U) TRACE Abnormal NEGATIVE [facility] Comment on above: Performed By: #### C BC #### [facility] [address] [place] [address] Dr. Ronald Wong LEUKOCYTES Negative Normal NEGATIVE [facility] Comment on above: Performed By: #### C BC #### [facility] [address] [place] [address] Dr. Ronald Wong Nitrite Ql (U) Negative Normal NEGATIVE [facility] Comment on above: Performed By: #### C BC #### [facility] [address] [place] [address] Dr. Ronald Wong pH (U) 6.0 [pH] Normal 5-9 [facility] Comment on above: Performed By: #### C BC #### [facility] [address] [place] [address] Dr. Ronald Wong SPEC GRAVITY 1.025 Normal 1.005-<=1.0 25 [facility] Comment on above: Performed By: #### C BC #### [facility] [address] [place] [address] Dr. Ronald Wong UA PROTEIN Negative Normal NEGATIVE/ TRACE [facility] Comment on above: Performed By: #### C BC #### [facility] [address] [place] [address] Dr. Ronald Wong UR MICRO IND NOT INDICATED Normal [facility] Comment on above: Performed By: #### C BC #### [facility] [address] [place] [address] Dr. Ronald Wong Urobilinogen Qn (U) 1.0 {Yancik'U}/dL Normal 0.2 - 1.0 [facility] Comment on above: Performed By: #### C BC #### [facility] [address] [place] [address] Dr. Ronald Wong LACTATE/LACTIC ACIDon 2021 Lactate [Moles/Vol] 1.1 mmol/L Normal 0.7-2.0 [facility] Comment on above: Performed By: #### C BC #### [facility] [address] [place] [address] Dr. Ronald Wong PROF 14(COMP METB)on 022 Albumin [Mass/Vol] 3.2 g/dL Critically low 3.5-5.[address] [facility] Comment on above: Performed By: #### C MP #### [facility] [address] [place] [address] Dr. Ronald Wong Albumin/Globulin [Mass ratio] 0.8 {ratio} Normal [facility] Comment on above: Performed By: #### C MP #### [facility] [address] [place] [address] Dr. Ronald Wong ALP [Catalytic activity/Vol] 97 U/L Normal 38-126 [facility] Comment on above: Performed By: #### C MP #### [facility] [address] [place] [address] Dr. Ronald Wong ALT [Catalytic activity/Vol] 10 U/L Normal 9-52 [facility] Comment on above: Performed By: #### C MP #### [facility] [address] [place] [address] Dr. Ronald Wong Anion gap [Moles/Vol] 10.7 mmol/L Normal [facility] Comment on above: Performed By: #### C MP #### [facility] [address] [place] [address] Dr. Ronald Wong AST [Catalytic activity/Vol] 21 U/L Normal 14-36 [facility] Comment on above: Performed By: #### C MP #### [facility] [address] [place] [address] Dr. Ronald Wong Bilirubin [Mass/Vol] 1.5 mg/dL Critically high 0.2-1.3 [facility] Comment on above: Performed By: #### C MP #### [facility] [address] [place] [address] Dr. Ronald Wong Calcium [Mass/Vol] 8.9 mg/dL Normal 8.4-10.2 [facility] Comment on above: Performed By: #### C MP #### [facility] [address] [place] [address] Dr. Ronald Wong Chloride [Moles/Vol] 108 mmol/L Critically high 98-107 [facility] Comment on above: Performed By: #### C MP #### [facility] [address] [place] [address] Dr. Ronald Wong CO2 [Moles/Vol] 26.8 mmol/L Normal 22.0-30.0 [facility] Comment on above: Performed By: #### C MP #### [facility] [address] [place] [address] [address] Ronald Wong Creatinine [Mass/Vol] 1.13 mg/dL Critically high 0.52-1.04 [facility] Comment on above: Performed By: #### C MP #### [facility] [address] [address] [address] Ronald Wong EGFR-AF ARGENTINE 59 mL/min/1.73m2 Critically low >=60 [facility] Comment on above: Performed By: #### C MP #### [facility] [address] [address] [address] Ronald Wong EGFR-NON AF ARGENTINE 48 mL/min/1.73m2 Critically low >=60 [facility] Comment on above: Performed By: #### C MP #### [facility] [address] [address] [address] Ronald Wong Globulin (S) [Mass/Vol] 4.1 g/dL Normal [facility] Comment on above: Performed By: #### C MP #### [facility] [address] [address] [address] Ronald Wong Glucose [Mass/Vol] 131 mg/dL Critically high 74-106 T [facility] Comment on above: Performed By: #### C MP #### [facility] [address] [address] [address] Ronald Wong Potassium [Moles/Vol] 4.5 mmol/L Normal 3.4-5.0 [facility] Comment on above: Performed By: #### C MP #### [facility] [address] [address] [address] Ronald Wong Protein [Mass/Vol] 7.3 g/dL Normal 6.1-8.2 [facility] Comment on above: Performed By: #### C MP #### [facility] [address] [address] [address] Ronald Wong Sodium [Moles/Vol] 141 mmol/L Normal 137-145 [facility] Comment on above: Performed By: #### C MP #### [facility] [address] [place] [address] Dr. Ronald Wong Urea nitrogen [Mass/Vol] 18.0 mg/dL Critically high 7.0-17.0 [facility] Comment on above: Performed By: #### C MP #### [facility] [address] [place] [address] Dr. Ronald Wong Urea nitrogen/Creatinin e [Mass ratio] 15.9 mg/mg Normal [facility] Comment on above: Performed By: #### C MP #### [facility] [address] [place] [address] Dr. Ronald Wong PROTIMEon 09-01-2021 INR Coag (PPP) [Relative time] 1.06 {INR} Normal [facility] Comment on above: Performed By: #### C BC #### [facility] [address] [place] [address] Dr. Ronald Wong INR GUIDELINES SEE BELOW Normal [facility] Comment on above: Result Comment: HELADIO RED INR: 2.0 - 3.0 CONDITIONS NOT LISTED BELOW 2.5 - 3.5 FOR PROSTHETIC HEART VALVE REPLACEMENT 2.5 - 3.5 RECURRENT THROMBOSIS Performed By: #### C BC #### [facility] [address] [place] [address] Dr. Ronald Wong PT Coag (PPP) [Time] 11.4 s Normal 9.0-11.6 [facility] Comment on above: Performed By: #### C BC #### [facility] [address] [place] [address] Dr. Ronald Wong PTTon 09-01-2021 aPTT Coag (Bld) [Time] 24.5 s Normal 22.3-36.2 [facility] Comment on above: Performed By: #### C BC #### [facility] [address] [place] [address] Dr. Ronald Wong Endoscopy Reporton 1 Endoscopy Report MR#: [id number] [facility] Pt. Name: Laney Larios Surgery Date: [...] Lucas M.D. Date Trans: 06/27/2021 04:11 A/georgeo [id number] Normal [facility] POC GLUCOSE LABon 06-26-2021 Glucose [Mass/Vol] 106 mg/dL High 70-[address] [facility] Comment on above: Performed By: #### 8 [address]99 #### [address] [place] [address] [place] [address], [place] Endoscopy Reporton 1 Endoscopy Report MR#: [id number] [facility] Pt. Name: Laney Larios Surgery Date: [...] Le DO Date Trans: 03/25/2021 06:50 A/georgeo [id number] [facility] Alcohol, Medicalon 8 Ethanol mg/dL Invalid [...] Invalid Interpretation Code 24 - 28 mmol/L [facility] CO2 40.2 mm Hg Low 41.0 - 51.0 [facility] Hematocrit (HCT) 29.5 % Low 36 - 46 % [facility] Hemoglobin mass conc (Bld) 9.5 g/dL Low 12 - 16 g/dL [facility] Interpretation and review of laboratory results Abnormal Invalid Interpretation Code [facility] O2 saturation 47.2 % Invalid Interpretation Code [facility] pH, Venous 7.40 1 Invalid Interpretation Code 7.32 - 7.42 [facility] pO2, Homar 28 mm Hg Invalid Interpretation Code 25 - 40 [facility] CBC Auto Differentialon 12-12 Basophils Auto #/vol (Bld) 0.03 K/mcL Invalid Interpretation Code 0.00 - 0.30 [facility] Basophils/100 WBC Auto (Bld) 0.6 % Invalid Interpretation Code [facility] Eosinophils 0.13 K/mcL Invalid Interpretation Code 0.00 - 0.50 [facility] Eosinophils/100 leukocytes 2.8 % Invalid Interpretation Code [facility] Erythrocyte distribution width Auto Entitic volume (RBC) 14.9 % High 11.6 - 14.8 % [facility] Erythrocytes (RBC) 2.72 M/mcL Low 4.00 - 5.20 [facility] Hematocrit (HCT) 27.9 % Low 36 - 46 % [facility] Hemoglobin mass conc (Bld) 9.4 g/dL Low 12 - 16 g/dL [facility] Immature granulocytes #/vol (Bld) 0.01 K/mcL Invalid Interpretation Code 0.00 - 0.30 [facility] Immature granulocytes/100 WBC (Bld) 0.20 % Invalid Interpretation Code [facility] Comment on above: The IG parameter is the percentage of metamyelocytes, myelocytes, and promyelocytes. Lymphocytes 1.72 K/mcL Invalid Interpretation Code 0.90 - 4.00 [facility] Lymphocytes/100 leukocytes 37.1 % Invalid Interpretation Code [facility] MCH 34.6 pg High 26 - 34 pg [facility] MCHC mass conc [...] Procedure Abnormality Status --------- ------ CBC Auto Differential[[id number]] Abnormal Final result Please view results for these tests on the individual orders. Invalid Interpretation Code [facility] CT ABDOMEN PELVIS WITH IV CO NTRAST [...] HypokalemiaCOMPARISON:CT of the abdomen and pelvis from [facility] 05/02/2015.TECHNIQUE:CT examination of the abdomen and pelvis [...] of the wall of the ascending and pspzwppx-mu-wga transverse colon which may be related to [...] morphology of the liver with splenomegaly and ugdrn-bj-ijuabeqd volume of predominantly upper abdominal ascites and stigmata of portal hypertension, similar in appearance to the prior examination. Pneumobilia and prior cholecystectomy, as before.2. There is thickening of the wall of the ascending and hgeamdlw-zq-yrt transverse colon which may be related to [...] with grade 1 anterolisthesis of L5 on S1.[facility]/vrsWorkstation ID: [id number] by: SHADE MANCERA on Sat Jan 08, 2018 1:03:05 AM EDTTranscribed by: LON WILD on Sat Jan 08, 2018 1:14:48 AM EDTFinalized by: SHADE MANCERA on Sat Jan 08, 2018 3:58:36 AM EDT Normal [facility] Comment on above: Order Comment: Reaso n [...] CT of the abdomen and pelvis from [facility] 05/02/2015. TECHNIQUE: CT examination of the abdomen [...] of the wall of the ascending and cfgdpkfk-wx-ahc transverse colon which may be related to [...] Bilateral L5 pars defects. Invalid Interpretation Code [employer] [facility] CT Abdomen Pelvis With IV Contrast Only 1. Cirrhotic morphology of the liver with splenomegaly and ffhej-cj-gujxznzl volume of predominantly upper abdominal ascites and stigmata of portal hypertension, similar in appearance to the prior examination. Pneumobilia and prior cholecystectomy, as before. 2. There is thickening of the wall of the ascending and rqumfana-uf-avm transverse colon which may be related to [...] grade 1 anterolisthesis of L5 on S1. [employer] Workstation ID: [id number] Invalid Interpretation Code [employer] [facility] CT Abdomen Pelvis With IV Contrast Only Interface, Rad In ParQnow [facility] - 01/08/2018 4:01 AM EDT EXAMINATION: CT [...] CT of the abdomen and pelvis from [facility] 05/02/2015. TECHNIQUE: CT examination of the abdomen [...] of the wall of the ascending and enzcsxwy-oc-nxs transverse colon which may be related to [...] morphology of the liver with splenomegaly and zcnnm-hl-vlwyexyx volume of predominantly upper abdominal ascites and stigmata of portal hypertension, similar in appearance to the prior examination. Pneumobilia and prior cholecystectomy, as before. 2. There is thickening of the wall of the ascending and htmmnoue-lj-cqe transverse colon which may be related to [...] grade 1 anterolisthesis of L5 on S1. [facility]/[employer] Workstation ID: [id number] Invalid Interpretation Code [employer] [facility] CT HEAD OR BRAIN WITHOUT CON [...] on the left, not significantly changed.Workstation ID: [id number] by: XANDER SUAZO on WedJan 07, 2018 11:55:50 PM EDTTranscribed by: XANDER SUAZO on WedJan 07, 2018 11:55:50 PM EDTFinalized by: XANDER SUAZO on WedJan 07, 2018 11:55:50 PM EDT Normal [facility] Comment on above: Order Comment: Reaso n [...] the left, not significantly changed. Workstation ID: [id number] Invalid Interpretation Code [facility] CT Head Or Brain Without [...] right external auditory canal. Invalid Interpretation Code [facility] CT Head Or Brain Without Contrast Interface, Rad In [employer] - 01/07/2018 11:58 PM EDT EXAMINATION: [...] the left, not significantly changed. Workstation ID: [id number] Invalid Interpretation Code [facility] Chem 7on 01-08-2018 Anion gap 11 [...] 2.2 mg/dL High 0 - 1.3 mg/dL [facility] Protein 9.0 g/dL High 6 - 8 g/dL [facility] Lavender Topon 01-08-2018 Extra Tube Hold for add-ons. Invalid Interpretation Code [facility] Comment on above: Auto resulted. POC Glucoseon 01-08-2018 Glucose mass conc 105 mg/dL High 65 - 99 mg/dL [facility] Interpretation and review of laboratory results Abnormal Invalid Interpretation Code [facility] PT/INRon 01-08-2018 INR Coag RelTime (Bld) During the induction phase of oral anticoagulation, the INR may not reflect the anticoagulation status of the patient. Therapeutic ranges for INR's are: Most clinical situations: INR 2.0-3.0 Mechanical Prosthetic Valve: INR 2.5-3.5 Critical: INR >5.0 Invalid Interpretation Code [facility] INR Coag RelTime (PPP) 1.6 {INR} High 0.8 - 1.1 [facility] Prothrombin time (PT) Coag time (PPP) 19.1 s High 11.8 - 14.3 [facility] [place] Drawon 01-08-2018 Creatinine The following orders were created for panel order [place] [facility]. Procedure Abnormality Status --------- ------ Lavender Top[[id number]] Final result Mint Green Top[[id number]] Final result Gold Top[[id number]] Final result Light Blue Top[[id number]] Final result Please view results for these tests on the individual orders. Invalid Interpretation Code [facility] Troponinon 01-08-2018 Troponin I.cardiac mass conc ng/mL Invalid Interpretation Code <=45 ng/L [facility] Comment on above: The 2014 AHA/ACC Gu ideline for the Management of Patients With Jnm-UL-Nkwsovkgc Acute Coronary Syndromes defines myocardial infarction (AZ) as follows: 1. For troponin-I value above the 45 ng/L (99th percentile) cut-off, a rise or fall greater than or equal to 20% from the initial value is indicative of AZ, in conjunction with the appropriate clinical symptoms. [...] for treatment purposes only. Invalid Interpretation Code [facility] Interpretation and review of laboratory results Normal Invalid Interpretation Code [facility] VBG (Obtain Venous Blood Gas es)on 01-08-2018 VBG (Obtain Venous Blood Gases) Invalid Interpretation Code [facility] XR CHEST PA/APon [...] WedJan 08, 2018 3:41:50 AM EDT Normal [facility] Comment on above: Order Comment: Reaso n [...] IMPRESSION: No acute pulmonary abnormality is visualized. [employer] Workstation ID: [id number] Invalid Interpretation Code [employer] [facility] XR Chest 1 View No acute pulmonary abnormality is visualized. [employer] Workstation ID: [id number] Invalid Interpretation Code [employer] [facility] XR Chest 1 View EXAMINATION: XR CHES T PA/AP HISTORY: Weakness and chest pain. TECHNIQUE: XR CHEST PA/AP COMPARISON: 04/10/2016. FINDINGS: Lungs are hypoinflated. No large pneumothorax or pleural effusion is visualized. No focal airspace consolidation is visualized. Right-sided discoid atelectasis noted. Unchanged cardiomediastinal silhouette and osseous structures noted. Probable cholecystectomy clips noted. Invalid Interpretation Code [employer] [facility] XR WRIST LEFT 3+ VIEWS (BARB TU)on 08-25-2017 XR WRIST LEFT 3+ VIEWS (STANDARD) EXAMINATION:XR WRIST LEFT 3+ VIEWS (STANDARD)HISTORY:ORDERING SYSTEM PROVIDED HISTORY: POST OP, TECHNOLOGIST PROVIDED HISTORY: Reason for exam: fxInjury/TraumaCancer History: ?Surgery, RadiationHistory: cholecystectomyEncounter Type: Subsequent/Follow-upMechanis m of injury: contustionORDERING SYSTEM PROVIDED DIAGNOSIS CODES:S52.502A Closed fracture distal radius and ulna, left, initial wfosxyzzeX14.602A Closed fracture distal radius and ulna, left, [...] alignment is anatomic and no complication is appreciated.[facility]/Rigoberto on ID: [id number] by: KALA BREWSTER on WedAug 25, 2017 3:09:11 PM ESTTranscribed by: DAPHNEY RODRIGEZ on WedAug 25, 2017 3:57:29 PM ESTFinalized by: KALA BREWSTER on WedAug 25, 2017 4:03:47 PM EST Normal [facility] Comment on above: Order Comment: Reaso n for exam?:fxInjury/Trauma or Illness?:Injury/TraumaHow long have you had these symptoms (acute/chronic)?:ChronicHistory of cancer?:?Surgeries, chemotherapy, or radiation?:cholecystectomyType of Exam?:Subsequent/Follow-upMechanism of injury?:contustion XR FLUOROSCOPY LESS THAN ONE HOURon 08-10-2017 XR FLUOROSCOPY LESS THAN ONE HOUR This is an auto finalized result. Please refer to patient chart for further information. information. information. Normal [facility] Comment on above: Order Comment: Reaso n [...] inner ear cavity. Partially included in the mdbsq-uf-uncy are left facial fractures including a depressed inferior left orbital wall fracture with hemorrhage in the left maxillary sinus.IMPRESSION:1. No signs of an acute intracranial process.2. Generalized atrophy of the brain with zxyd-ia-qxjkycry probable chronic small vessel ischemic changes.3. Opacification of the right mastoid air cells and inner ear cavity, which may be related to age-indeterminate otomastoiditis. Clinical correlation is recommended.4. Partially imaged are left facial fractures including a depressed left inferior orbital wall fracture with hemorrhage in the left maxillary sinus. Please see the CT facial bone report for further details.JAR/bdWorkstation ID: [id number] by: SY LEAHY on WedAug 03, 2017 4:06:30 PM ESTTranscribed by: BRENDAN VALDES on WedAug 03, 2017 4:11:43 PM ESTFinalized by: SY LEAHY on WedAug 03, 2017 5:47:14 PM EST Normal [facility] Comment on above: Order Comment: Reaso n [...] intraorbital hematoma. The globe is intact.JAR/bdWorkstation ID: [id number] by: SY LEAHY on WedAug 03, 2017 [...] WedAug 03, 2017 3:03:15 PM EST Normal [facility] Comment on above: Order Comment: Reaso n [...] Encntr screen for malignant neoplasm of genitourinary qpjijtC21.8 Acid phosphatase kemzbnjpD37.19 Personal history of digestive diseaseCOMPARISON:None.TECHN IQUE:Complete ultrasound [...] WedJul 29, 2017 8:29:54 PM EST Normal [facility] Comment on above: Order Comment: Reaso n for exam?:screen for malignant neoplasm of genitourinary organs, elevated acid phospataseInjury/Trauma or Illness?:Illness/OtherHow long have you had these symptoms (acute/chronic)?:UnknownHistory of cancer?:?Surgeries, chemotherapy, or radiation?:cholecystectomyType of Exam?:InitialAdditional signs and symptoms?:none CNOVSPon 02-04-2017 CNOVSP Visit (SP) Office ([facility]) ----LANEY LARIOS ([id number]) 1955 FDate Time Provider Department02/04/17 2:45 PM CAESAR VALENCIA HEMACL During your visit today, we recorded the following information about you: Temperature Pulse Respiration Blood pressure 97.7 degrees 80/minute 16/minute 102/63 Weight Height 46.4 kg 1.6 mMINDY REBECA SEGUNDO PA-C 02/04/2017 3:05 PM SignedCCAneMemorial Hospital of Rhode IslandWily Canseco Benjamin is a 61 year old [...] ANDamp;MINERALS/FERROUS FUM (MULTI VITAMIN ORAL) Take by mouth.[place]-3 Fatty Acids-Vitamin E 1,000 mg cap Take [...] kg (102 lb 3.2 oz) BMI 18.11 kg/s6Dbhismq Appearance: alert and oriented, appearing in no [...] according to her.RUKHSANA RUSH-CReferring Provider: CAESAR VALENCIA [[id number]]Allergies As of Date: 02/04/2017(No Known Allergies)Date Reviewed: 02/04/2017Reviewed by: Cris Varma - Fully AssessedReason for Visit: Anemia [6] Cmt: 1 year follow upPrimary Visit Diagnosis:Anemia, unspecified type [D64.9] Other Visit Diagnosis:Wound infection [T14.8, L08.9]Order(s):IRON + TIBC [SQIRON] Order #: [id number] FUTURE FERRITIN BLD [SQFERR] Order #: [id number] FUTUREDisposition: Return in about 1 year (around [...] Status:Closed by LIGIA SEGUNDO on 02/04/17 Normal [facility] PROGRESSon 02-04-2017 PROGRESS HNO ID: [id number] thor: Ligia Nettleservice: (none)Author Type: Physician AssistantType: [...] ANDMINERALS/FERROUS FUM (MULTI VITAMIN ORAL) Take by mouth.[place]-3 Fatty Acids-Vitamin E 1,000 mg cap Take [...] kg (102 lb 3.2 oz) BMI 18.11 kg/z2Yvttccp Appearance: alert and oriented, appearing in no [...] healing according to her.LIGIA SEGUNDO PA-C Normal [facility] Remote CBCDIF (for [facility] use o nly)on 02-04-2017 Abs Baso 0.01 k/uL Normal 0.00-0.10 [facility] Abs [place] 0.30 k/uL Normal 0.00-0.86 [facility] Abs Neut 2.10 k/uL Normal 1.45-7.50 [facility] Basophils/100 WBC Auto (Bld) 0.3 % Normal [facility] Eosinophils 0.21 10*3/uL Normal 0.00-0.45 [facility] Eosinophils/100 leukocytes 5.4 % Normal [facility] Erythrocyte distribution width Auto Ratio (RBC) 14.3 % Normal 11.5-15.0 [facility] Erythrocytes (RBC) 2.59 10*6/uL Low 3.90-5.20 [facility] Hematocrit (HCT) 27.8 % Low 36.0-46.0 [facility] Hemoglobin mass conc (Bld) 8.7 g/dL Low 11.5-15.5 [facility] Lymphocytes 1.25 10*3/uL Normal 1.00-4.00 [facility] Lymphocytes/100 leukocytes 32.3 % Normal [facility] MCH 33.6 pG Normal 26.0-34.0 [facility] MCHC mass conc (RBC) 31.3 g/dL Normal 30.5-36.0 [facility] MCV 107.3 fL High 80.0-100.0 [facility] Monocytes/100 leukocytes 7.8 % Normal [facility] Neutrophils/100 WBC Auto (Bld) 54.2 % Normal [facility] Platelet mean volume (PMV) 8.9 fL Low 9.0-12.7 [facility] Platelets 140 10*3/uL Low 150-400 [facility] WBC (Leukocytes) 3.87 10*3/uL Normal 3.70-11.00 [facility] Vital Signs Date Time Vital Sign Value Performing Clinician Ember balderas 01-08-2018 03:45-0400 BP Diastolic 64 mm[Hg] [facility] 01-08-2018 03:45-0400 BP Systolic 87 mm[Hg] [facility] 01-08-2018 03:45-0400 Pulse (Heart Rate) 71 /min [facility] 01-08-2018 03:45-0400 Pulse Oximetry 98 % [facility] 01-08-2018 03:45-0400 Respiratory Rate 18 /min [facility] 01-07-2018 22:19-0400 BMI (Body Mass Index) 17.01 kg/m2 [facility] 01-07-2018 22:19-0400 Body Temperature 97.59 [degF] [facility] 01-07-2018 22:19-0400 Height 160 cm [facility] 01-07-2018 22:19-0400 Weight 43.55 kg [facility] Encounters Encounter Date Encounter Type Care Provider Facility Start: 12-27-2023 End: 12-27-2023 ambulatory NAMAN CARBAJAL [facility] Start: 11-29-2023 End: 11-29-[address] [facility] Start: 11-25-2023 End: 11-25-2023 ambulatory [facility] Start: 10-05-2023 End: 10-11-2023 ambulatory ALBERTO Delacruz LÓPEZ [facility] Start: 10-04-2023 End: 10-04-2023 ambulatory [facility] Start: 09-29-2023 End: 09-29-2023 ambulatory NAMAN CARBAJAL [facility] Start: 09-28-2023 End: 09-29-[address] [facility] Start: 08-31-2023 End: 02-20-2024 ambulatory ALBERTO DAWN [facility] Start: 08-30-2023 End: 08-30-2023 ambulatory WONG [facility] Start: 08-27-2023 End: 08-27-2023 ambulatory SHO [facility] Start: 08-26-2023 End: 08-26-2023 ambulatory [facility] Start: 08-17-2023 End: 08-17-[address] [facility] Start: 07-29-2023 End: 09-10-2023 ambulatory [facility] Start: 04-01-2023 End: 04-01-[address] [facility] Start: 12-31-2022 End: 12-31-[address] [facility] Start: 12-11-2022 End: 12-12-[address] [facility] Start: 09-02-2021 End: 09-03-2021 Evaluation and management of inpatient SHAIKH KAISER Facility: Start: 06-26-2021 End: 06-27-2021 ambulatory REFERRED SELF Facility:[facility] Start: 03-24-2021 End: 03-25-2021 ambulatory REFERRED SELF Facility:[facility] Start: 09-11-2020 End: 09-11-2020 Orders Only Leticia Wright Work Phone: [facility] Start: 01-08-2018 End: 01-08-2018 Emergency department patient visit GHASSAN ZEINA [facility] Start: 01-07-2018 End: 01-08-2018 Emergency department patient visit Del Roberts Christianson Work Phone: [facility] Start: 08-25-2017 End: 08-26-2017 Ambulatory MICHAEL ADAMS [facility] Start: 08-10-2017 End: 08-10-2017 Patient encounter MICHAEL ADAMS [facility] Start: 08-04-2017 End: 08-04-2017 Ambulatory MICHAEL ADAMS [facility] Start: 08-03-2017 End: 08-03-2017 Emergency department patient visit YOANA ROSALES [facility] Start: 07-29-2017 End: 07-30-2017 Patient encounter GHASSAN [facility] Start: 07-27-2017 End: 07-27-2017 Patient encounter GHASSAN [facility] Start: 07-02-2017 End: 07-02-2017 Patient encounter [facility] Start: 06-24-2017 End: 06-24-2017 Patient encounter GHASSAN [facility] Start: 02-04-2017 End: 02-05-2017 Ambulatory CAESAR VALENCIA [facility] Procedures Date Procedure Procedure Detail Performing Clinician Start: 11-25-2023 Follow-up visit Follow-up MARVIN Richard [place] Start: 03-24-2021 ANES UPR GI NDSC PX NOS REFERRED SELF Start: 03-24-2021 EGD DIAGNOSTIC BRUSH WASH JULIANO LUCAS Plan of Treatment Date Care Activity Detail Author Start: 08-03-2027 [facility] Start: 03-12-2020 Influenza vaccination given Se quential Influenza Vaccine (#1) [facility] Start: 03-12-2018 Influenza vaccination SEQUENTI AL INFLUENZA VACCINE (Season Ended) [facility] Start: 2016 Zoster vaccine hzv l adriana for subcutaneous use ZOSTER VACCINE [facility] Start: 2006 Administration of he rpes zoster vaccine Zoster Vaccines (1 of 2) [facility] Start: 2006 Screening for malign ant neoplasm of colon [facility] Start: 1972 COVID-19 Vaccine (1 of 2) COVID-19 V accine (1 of 2) [facility] Start: 1971 HIV screening HIV Screening [facility] Start: 1968 Adolescent depressio n screening assessment Depression Screening (PHQ9) [facility] Start: 1959 History and physical examination, annual for health maintenance Wellness Visit [facility] Start: 1956 Screening colonoscopy COLONOSCOPY [facility] Start: 1956 Screening for malign ant neoplasm of cervix PAP SMEAR [facility] Start: 1956 Screening mammography Mammogram [facility] End: 01-07-2018 Bacteria aerobode culture Urine Aerobic Culture Routine Once for 1 Occurrences starting 01/07/2018 until 01/07/2018 [facility] Bacteria aerobode culture Urine Aerobic Culture Routine 01/07/2018 11:13 PM EDT [facility] End: 01-07-2018 Bacteria culture Blood Culture Aerobic/Anaerobic Routine Once for 1 Occurrences starting 01/07/2018 until 01/07/2018 [facility] Bacteria culture [facility] Immunizations Immunization Date Immunization Notes Care Provider Eva waddell 08-03-2017 tetanus toxoid, redu jason diphtheria toxoid, and acellular pertussis vaccine, adsorbed; Translations: [TDAP] Del Christianson [facility] Payers Date Payer Category Payer Medicaid [id number] 2016 Medicaid [employer] [id number] 2016-Present [id number] 1959 Medicaid [id number] 1956 Unknown [id number] 1956 Unknown [id number] 1956 Unknown [id number] 1956 Unknown [id number] 1956 Unknown [id number] 1956 Unknown [id number] 1956 Unknown [id number] [id number] 1956 Unknown [id number] [id number] 1956 Unknown [id number] [id number] 1956 Unknown [id number] [id number] 1956 Unknown [id number] [id number] 1956 Unknown [id number] [id number] 1956 Unknown [id number] Social History Date Type Detail Facility Start: 01-07-2018 End: 05-10-2018 Tobacco smoking status WAIS Former smoker [facility] End: 08-10-2014 History of tobacco use Current smoker [facility] Sex Assigned At Not on file [facility] Start: 05-10-2018 Tobacco use and exposure Never used [facility] Start: 05-10-2018 Alcohol intake 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 I will attempted to call patient later in the day for telehealth visit. Addendum: Multiple attempts were made to contact patient with out success. [facility] 11-29-2023 Note The patient was not seen. Please do not charge [facility] 09-28-2023 Note Patient: Laney Larios Procedure Summary Date: 09/28/23 Room / Location: [facility] Endoscopy Anesthesia Start: 1030 Anesthesia Stop: [...] per anesthesia protocol. No notable events documented. [facility] 09-28-2023 Note Gastroenterology His tory and [...] Provider, ciprofloxacin (Ci (more content not included)... [facility] 09-28-2023 Note Patient: Laney Larios Procedure Information Date/Time: 09/28/23 1045 Scheduled providers: Ade Tan MD; Dhiraj Martinez MD; LOREN Hamm Procedure: EGD Location: [facility] [place] [facility] Relevant Problems Anesthesia (within normal limits) [...] Plan discussed with CAA. Additional Equipment Requests [facility] 08-17-2023 Note [facility] Gastroenterolog y [...] that she will be moving to the [facility]. Recommendation was to establish with a GI [...] Hammond, Hematology in (more content not included)... [facility] 04-01-2023 Note [facility] Gastroenterolog [...] that she will be moving to the [facility]. Recommendation was to establish with a GI provider in the area. INTERVAL 12/31/22: Mx Larios returns in follow up. 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 She has been off Imuran for approx 6 months. The Imuran was held Jun 2022 due to worsening anemia. Most recent liver enzymes ( off Imuran) were WNL Ms. Larios also follow (more content not included)... [facility] 12-31-2022 Note [facility] [...] that she will be moving to the [facility]. Recommendation was to establish with a GI provider in the area. INTERVAL 12/31/22: Mx Larios returns in follow up. 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 She has been off Imuran for approx 6 months. The Imuran was held Jun 2022 due to worsening anemia. Most recent liver enzymes ( off Imuran) were WNL Ms. Larios als (more content not included)... [facility] 12-11-2022 Note Patient: Laney Larios Procedure Information Anesthesia Start Date/Time: 12/11/22 1019 Scheduled providers: Waylon Cavazos MD; Herb Mims MD; LOREN Curran Procedure: ENDOSCOPIC ULTRASOUND (UPPER) Location: [facility] Endoscopy Relevant Problems Cardio (+) Essential [...] Plan discussed with CAA. Additional Equipment Requests [facility] 12-11-2022 Note Patient: Laney Larios Procedure Summary Date: 12/11/22 Room / Location: [facility] Endoscopy Anesthesia Start: 1019 Anesthesia Stop: [...] per anesthesia protocol. No notable events documented. [facility] 12-11-[address] Cavazos speaking with patient at bedside. Report called to Carolin Torres and spoke with Mandy. All questions answered at this time. Pictures from procedure and discharge instructions sent with patient back to facility Yajaira Mays RN PACU [facility] 12-11-2022 Note Airway Date/Time: 12/11/2022 10:25 AM Urgency: elective General Information and Staff Patient location during procedure: OR Anesthesiologist: Herb Mims MD Resident/SOCIAL INSURANCE ADMINISTRATOR/CAA: LOREN Curran Performed: resident/SOCIAL INSURANCE ADMINISTRATOR/CAA Indications and Patient Condition Indications for airway [...] 1 Number of other approaches attempted: 0 [facility] Summary Purpose Family History No Family [...] section and content) DATE CREATED AUTHOR 12/31/2017 [facility] DATE CREATED AUTHOR AUTHOR'S ORGANIZ ATION 01/05/2018 [facility] DATE CREATED AUTHOR AUTHOR'S ORGANIZ ATION 02/04/2018 [facility] DATE CREATED AUTHOR AUTHOR'S ORGANIZ ATION 09/08/2021 [facility] DATE CREATED AUTHOR AUTHOR'S ORGANIZ ATION 02/15/2022 [facility] DATE CREATED AUTHOR AUTHOR'S ORGANIZ ATION 12/06/2023 [facility] DATE CREATED AUTHOR AUTHOR'S ORGANIZ ATION 12/29/2023 [facility] ED Notes - Irina Wynn RN - 01/08/2018 3:55 AM EDTED Notes - Irina Wynn RN - 01/08/2018 3:42 AM EDTED Notes - Irina Wynn RN - 01/08/2018 3:33 AM EDT Miscellaneous Notes (unrecog nized section and content) Report given to: DEJA Sheehan at [facility] at this time. Report given to: Jayce [facility] Pt bathed head to toe [...] note may be different from the original. [facility] ED Physician Note: NAME: Laney Larios 62 y.o. CSN: [id number] PCP: Ghassan Peña CNP ED Course / Medical Decision Making: Patient comes in with altered mental status and seeing things and feeling fatigued. She has a history of liver cirrhosis. She states she seen at [facility] at [place]. 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 Her liver ammonia [...] where patient wants to go. Case with [facility] transfer center they will call back when a bed available. My shift is ending so I discussed case with Dr. Dewey Arce and he will talk to [facility] and fill out transfer sheet [...] HYPOKALEMIA Disposition: Patient is being Transfer to [facility] to [facility] No medications on file History: Chief Complaint: [...] DISTAL RADIUS; Surgeon: Michael Latham MD; Location: [facility] Main OR; Service: Orthopedic FAM. Hx: Family [...] Procedure Abnormality Status --------- ------ CBC Auto Differential[[id number]] Abnormal Final result Please view results for these tests on the individual orders. OBTAIN VENOUS BLOOD GASES DRUGS OF ABUSE SCREEN, URINE CT Abdomen Pelvis With IV Contrast Only Preliminary Result 1. Cirrhotic morphology of the liver with splenomegaly and harzv-jx-zlqiadkd volume of predominantly upper abdominal ascites and stigmata of portal hypertension, similar in appearance to the prior examination. Pneumobilia and prior cholecystectomy, as before. 2. There is thickening of the wall of the ascending and iggbqbyh-rg-lin transverse colon which may be related to [...] grade 1 anterolisthesis of L5 on S1. [facility] Workstation ID: [id number] CT Head Or Brain Without Contrast Final Result 1. No acute intracranial process. 2. Age-related atrophy with stable mild chronic small-vessel white matter ischemia. 3. Mild chronic-appearing left sphenoid sinusitis. 4. Bilateral mastoid effusions, moderate on the right and small on the left, not significantly changed. Workstation ID: [id number] XR Chest 1 View Preliminary Result No acute pulmonary abnormality is visualized. /[facility] Workstation ID: [id number] Procedures: EKG 12-lead Date/Time: 01/08/2018 12:11 AM Performed by: DEL CHRISTIANSON Authorized by: DEL CHRISTIANSON Interpreted by ED attending physician Rhythm: sinus rhythm BPM: 77 Conduction: conduction normal ST Segments: ST segments normal T Waves: T waves normal Clinical impression: abnormal ECG . . Del Christianson MD ED Physician [facility] Emergency Department (Please note that [...] BE BASED ON THE PRIMARY CLINICAL RECORDS. [facility] [employer] [facility]. provides no warranty or guarantee of the accuracy or completeness of information in this document.
[2024-03-18] MEDS: 0.9 % SODIUM CHLORIDE 1,000 ML 100 ML IV (23:32)
[2024-03-18] MEDS: SODIUM CHLORIDE PR (23:33)
[2024-03-18] MEDS: LACTULOSE PR (23:33)
[2024-03-19 04:00] VITALS: BP 110/66; PULSE 18; TEMP 36.6; O2SAT 92
[2024-03-19 05:22] VITALS: PULSE 60
[2024-03-19 06:30] LABS: Basophils Percent Auto 0.9 % (0.2-2.0); Eosinophils Percent Auto 2.6 % (0.9-7.0); Hematocrit 24.4 % (36.0-48.0); Hemoglobin 7.9 g/dL (12.0-16.0); Lymphocytes Absolute Auto 0.4 10^3/uL (1.2-3.8); Lymphocytes Percent Auto 34.8 % (20.5-60.0); Mean Corpuscular HGB Conc 32.4 g/dL (29.9-35.2); Mean Corpuscular Hemoglobin 35.3 pg (26.7-34.0); Mean Corpuscular Volume 108.9 fL (81.0-99.0); Mean Platelet Volume 10.5 fL (9.5-13.5); Monocytes Absolute Auto 0.1 10^3/uL (0.3-0.8); Monocytes Percent Auto 11.3 % (1.7-12.0); Neutrophils Absolute Auto 0.6 10^3/uL (1.4-6.5); Neutrophils Percent Auto 50.4 % (43.0-75.0); Red Blood Count 2.24 10^6/uL (4.20-5.40); Red Cell Distribution Width 15.7 % (11.0-15.0)
[2024-03-19 06:40] LABS: Platelet Count 29 10^3/uL (150-450); White Blood Count 1.2 10^3/uL (4.0-11.0)
[2024-03-19 06:48] LABS: Alanine Aminotransferase 18 U/L (14-59); Albumin Globulin Ratio 0.6; Albumin Level 2.5 g/dL (3.4-5.0); Alkaline Phosphatase 104 U/L (46-116); Anion Gap 11.8; Aspartate Amino Transferase 27 U/L (15-37); BUN Creatinine Ratio 22.3; Bilirubin Total 1.7 mg/dL (0.2-1.0); Calcium 8.9 mg/dL (8.5-10.1); Chloride 112 mmol/L (98-107); Estimated GFR (African America >60 (>=60); Estimated GFR (Non-African Ame 53 (>=60); Globulin 4.3 g/dL; Glucose 110 mg/dL (74-106); Potassium 3.8 mmol/L (3.5-5.1); Sodium 144 mmol/L (136-145); Total Protein 6.8 g/dL (6.4-8.2)
[2024-03-19 06:55] LABS: Ammonia 100 umol/L (11-32)
[2024-03-19 07:30] VITALS: BP 98/59; PULSE 61; TEMP 36.8; O2SAT 95
[2024-03-19] MEDS: POTASSIUM CHLORIDE 10 MEQ ER TABLET 20 MEQ PO (08:53)
[2024-03-19] MEDS: DOCUSATE SODIUM 100 MG CAPSULE PO (08:53)
[2024-03-19] MEDS: MAGNESIUM OXIDE 400 MG TABLET PO (08:53)
[2024-03-19] MEDS: RIFAXIMIN 550 MG TABLET PO (08:53)
[2024-03-19] MEDS: CETIRIZINE HCL 10 MG TABLET PO (08:53)
[2024-03-19] MEDS: URSODIOL 300 MG CAPSULE PO (08:54)
[2024-03-19] MEDS: SERTRALINE HCL 50 MG TABLET 12.5 MG PO (08:56)
--- NOTE | 2024-03-19 11:37 | P.HP_ITS ---
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 Patient is a DNR CC and her initial evaluation was c/w hepatic encephalopathy. She was admitted overnight for it and upon my assessment earlier today, seemed to be at her usual baseline. Patient was instructed to use Lactulose TID and titrate the dose to achieve 2-3 BM daily to avoid readmission. ED provider also discussed with patient and her family about possibly consulting hospice. I will defer this to the patient's Primary provider. At this point, there are no inpatient needs for the patient and she is medically stable for discharge. Opioid HPI Opioid Management Most Recent Pain and Opioid Data: Last Pain Scale 5 01/19/24 19:57 Last Pain Intensity 0 01/08/24 09:59 Last Pain Assessment 03/19/24 11:00 Last ORT Total Score 0 03/18/24 20:00 Last ORT Risk Category Low Risk 03/18/24 20:00 Review of Systems ROS Status of ROS 10 or more systems reviewed and unremark able except as noted in history and below [facility] Medical History (Updated 03/19/24 @ 11:41 by Shaikh Amy MD) DNR (do not resuscitate) ?Z66 - Do not resuscitate (ICD-10) Hypokalemia ?E87.6 - Hypokalemia (ICD-10) Anemia ?D64.9 - Anemia, unspecified (ICD-10) COVID-19 ?U07.1 - COVID-19 (ICD-10) E coli bacteremia ?R78.81 - Bacteremia (ICD-10) ?B96.20 - Unspecified Escherichia coli [E. coli] as the cause of diseases classified elsewhere (ICD-10) Hyperammonemia ?E72.20 - Disorder of urea cycle metabolism, unspecified (ICD-10) Chronic hypotension ?I95.89 - Other hypotension (ICD-10) Pancytopenia ?D61.818 - Other pancytopenia (ICD-10) GERD (gastroesophageal reflux disease) ?K21.9 - Gastro-esophageal reflux disease without esophagitis (ICD-10) Hypotension ?I95.9 - Hypotension, unspecified (ICD-10) Protein calorie malnutrition ?E46 - Unspecified protein-calorie malnutrition (ICD-10) Vitamin D deficiency ?E55.9 - Vitamin D deficiency, unspecified (ICD-10) Dry eye syndrome ?H04.129 - Dry eye syndrome of unspecified lacrimal gland (ICD-10) Hernia ?K46.9 - Unspecified abdominal hernia without obstruction or gangrene (ICD- 10) Hyperglycemia ?R73.9 - Hyperglycemia, unspecified (ICD-10) Hyperlipemia ?E78.5 - Hyperlipidemia, unspecified (ICD-10) Hepatic failure ?K72.90 - Hepatic failure, unspecified without coma (ICD-10) Cirrhosis of liver ?K74.60 - Unspecified cirrhosis of liver (ICD-10) Dysthymic disorder ?F34.1 - Dysthymic disorder (ICD-10) Depression ?F32.A - Depression, unspecified (ICD-10) COPD (chronic obstructive pulmonary disease) ?J44.9 - Chronic obstructive pulmonary disease, unspecified (ICD-10) Autoimmune hepatitis ?K75.4 - Autoimmune hepatitis (ICD-10) Surgical History (Updated 08/04/23 @ 11:58 by Jennifer Esteban) H/O: hysterectomy ?Z90.710 - Acquired absence of both cervix and uterus (ICD-10) History of cholecystectomy ?Z90.49 - Acquired absence of other specified parts of digestive tract (ICD- 10) Previous back surgery ?Z98.890 - Other specified postprocedural states (ICD-10) Family History (Updated 08/04/23 @ 12:00 by Jennifer Esteban) Other Family history not known due to adoption Social History Within the past year, how often did you have a drink containing alcohol: never Within the past year, how often did you have six or more drinks on one occasion: never Score interpretation: A score less than 3 is consistent with normal alcohol consumption. Smoking status: Former smoker Non-prescribed substance use: denies use Previous occupational history: retired Known occupational exposures/hazards: No Highest level of school completed/degree received: don't know Do you want help with school or training: No Are you now , , , , never or living with a partner: never Little interest or pleasure in doing things: not at all Feeling down, depressed, or hopeless: not at all Feel stressed/tense/nervous/anxious/difficulty sleeping: not at all Do you think of yourself as: straight/heterosexual Gender Identity: female Meds Home Medications and Allergies Home Medications ?Medication ?Instructions ?Recorded ?Confirmed ?Type albuterol sulfate 90 mcg/actuation 2 puff inhalation Q4H PRN 05/20/23 03/18/24 History aerosol inhaler shortness of breath or wheezing docusate sodium 100 mg capsule 100 mg PO DAILY 05/20/23 03/18/24 History fluticasone propionate 50 1 spray intranasal DAILY PRN 05/20/23 03/18/24 History mcg/actuation nasal allergy symptoms spray,suspension loratadine 10 mg chewable tablet 10 mg PO DAILY 05/20/23 03/18/24 History midodrine 10 mg tablet 10 mg PO TID hypotension 05/20/23 03/18/24 History polyethylene glycol 3350 17 17 g PO DAILY PRN constipation 05/20/23 03/18/24 History gram/dose oral powder (ClearLax) potassium chloride 10 mEq 20 meq PO DAILY 05/20/23 03/18/24 History tablet,extended release (Klor-Con) rifaximin 550 mg tablet (Xifaxan) 550 mg PO BID 05/20/23 03/18/24 History sertraline 25 mg tablet 12.5 mg PO Q24H 05/20/23 03/18/24 History ursodiol 250 mg tablet 250 mg PO Q12H 05/20/23 03/18/24 History acetaminophen 325 mg tablet 650 mg PO Q6H PRN fever or pain 08/04/23 03/18/24 History cholecalciferol (vitamin D3) 1,250 1,250 mcg PO QWEEK 08/04/23 03/18/24 History mcg (50,000 unit) capsule (Weekly-D) magnesium oxide 400 mg PO DAILY 08/04/23 03/18/24 History pantoprazole 40 mg tablet,delayed 40 mg PO .hs 08/04/23 03/18/24 History release (Protonix) trazodone 50 mg tablet 50 mg PO .QHS 08/04/23 03/18/24 History mirtazapine 15 mg tablet (Remeron) 7.5 mg PO .QHS appetite stimulation 11/15/23 03/18/24 History lactulose 10 gram/15 mL oral 20 g PO TID 03/18/24 03/18/24 History solution (Enulose) Allergies Allergy/AdvReac Type Severity Reaction Status Date / Time No Known Drug Allergies Allergy Verified 05/20/23 18:30 Exam Constitutional Vital Signs, click to edit/add: Last Vital Signs Temp 98.2 F 03/19/24 07:30 Pulse 61 03/19/24 07:30 Resp 18 03/19/24 07:30 BP 98/59 03/19/24 07:30 Pulse Ox 95 03/19/24 07:30 O2 Del Method Room Air 03/19/24 07:30 Documenting provider has reviewed patient's vital signs: yes General appearance: cooperative, ill appearing and frail appearing Nutritional appearance: cachectic HENMT Common normals: normocephalic and head/scalp atraumatic Other: Bitemporal wasting Respiratory Common normals: normal respiratory effort and no use of accessory muscles Effort & inspection: able to speak in complete sentences Cardio Common normals: regular rate, regular rhythm, S1 normal heart sound and S2 normal heart sound GI Common normals: Normal to inspection, nondistended, normoactive bowel sounds present, soft to palpation, non-tender and no hepatosplenomegaly Extremity Common normals: normal to inspection and full ROM Neuro Common normals: oriented x3, moves all extremities, no focal motor deficits and no sensory deficits noted Sensorium/orientation: lethargic Speech: speech normal Psych Common normals: cooperative, denies homicidal ideation and denies suicidal ideation Results Labs Labs: Short CBC 03/18/24 03/19/24 Range/Units 16:47 06:21 WBC 2.0 L 1.2 L* (4.0-11.0) 10^3/uL Hgb 10.0 L 7.9 L (12.0-16.0) g/dL Hct 30.0 L 24.4 L (36.0-48.0) % Plt Count 41 L 29 L* (150-450) 10^3/uL BMP 03/18/24 03/19/24 16:47 06:21 Sodium 140 144 Potassium 4.2 3.8 Chloride 106 112 H Carbon Dioxide 25.6 24.0 BUN 24.0 H 23.0 H Creatinine 1.19 H 1.03 H Glucose 131 H 110 H Calcium 9.4 8.9 Liver Function 03/18/24 03/19/24 Range/Units 16:47 06:21 Total Bilirubin 1.6 H 1.7 H (0.2-1.0) mg/dL AST 28 27 (15-37) U/L ALT 19 18 (14-59) U/L Alkaline Phosphatase 132 H 104 (46-116) U/L Albumin 3.2 L 2.5 L (3.4-5.0) g/dL Assessment and Plan Assessment and Plan (1) AMS (altered mental status): Assessment and Plan: due to hepatic encephalopathy, improved overnight. back to baseline. Qualifiers: Altered mental status type: somnolence Qualified Code(s): R40.0 - Somnolence (2) Acute hepatic encephalopathy: Assessment and Plan: multiple admissions in the past with similar presentation. instructed patient to titrate lactulose to achieve a minimum of 2 BM daily. C/w rifaximin. (3) Chronic hypotension: Assessment and Plan: on midodrine. C/w same. (4) Pancytopenia: Assessment and Plan: Due to liver cirrhosis. Unchanged. (5) GERD (gastroesophageal reflux disease): Assessment and Plan: C/w protonix. Qualifiers: Esophagitis presence: without esophagitis Qualified Code(s): K21.9 - Gastro-esophageal reflux disease without esophagitis (6) Protein calorie malnutrition: Assessment and Plan: Severe PCM with cachexia, muscle wasting, BMI of only 18. Adult failure to thrive and will benefit from hospice/palliative care eval. Qualifiers: Protein-calorie malnutrition severity: severe Qualified Code(s): E43 - Unspecified severe protein-calorie malnutrition (7) Cirrhosis of liver: Assessment and Plan: due to Autoimmune hepatitis. Multiple admissions for hepatic encephalopathy. Instructed to use Lactulose TID and titrate to 2-3 BM daily. Qualifiers: Hepatic cirrhosis type: other cirrhosis Qualified Code(s): K74.69 - Other cirrhosis of liver (8) Autoimmune hepatitis: Assessment and Plan: Has now Liver Cirrhosis. Also uses ursodiol for it.
--- NOTE | 2024-03-19 11:52 | PC.NURSE ---
Report called to Kayla Vasquez. ETA of squad 12:30
== END 2024-03-19 12:34 ==
LOC: ER 18:30 → MS 19:52
PROVIDERS: Registered Nurse; Admitting Provider Internal Medicine; Emergency Provider Emergency Medicine; PCP Internal Medicine; Visit Provider Internal Medicine
DX: K76.82 Hepatic encephalopathy (principal); I95.89 Other hypotension; D61.818 Other pancytopenia; K21.9 Gastro-esophageal reflux disease without esophagitis; E43 Unspecified severe protein-calorie malnutrition; Z68.1 Body mass index [BMI] 19.9 or less, adult; R64 Cachexia; R62.7 Adult failure to thrive; K74.69 Other cirrhosis of liver; K75.4 Autoimmune hepatitis; E86.0 Dehydration; Z79.899 Other long term (current) drug therapy; Z87.891 Personal history of nicotine dependence; Z66 Do not resuscitate
CPT/HCPCS: 36415; 70450; 71045; 80053; 82140; 85007; 85025; 85027; 93005; 96360; 96361; 99285; G0378